=== PATIENT | female | born 1945 | race Caucasian/White ===

== ENCOUNTER → 2016-05-07 | Outpatient (CLI) | payer OTHER, MEDICARE ==
[~2016-05-07] MED LIST: AMLO-110 PO; AMOX875T PO; ARTIDRO2 OPB; ASCA500 PO; ASPI81TA21 PO; ASTN; ATV1 PO; AZEL30SP NAE; CALC-51 PO; CALCTAB5 PO; CETI10TA84 PO; CLC100 PO; CRAN1TAB9 PO; CYAN100T PO; CYCL0.052 OP; DICY20TA35 PO; DLCS PR; DOXY100C41 PO; FAMO20TA12 PO; FLNIN NAE; FLUO0.02 EXT; FLUT0.15 NAE; FURO20TA PO; GABA-113 PO; GADAVIST IV PRN; HYDR12.56 PO; LAMO100T16 PO; LAMO25TA PO; LCTX PO; LCTXP PO; LEVO125T4 PO; LITH1TAB PO; LOSA100T65 PO; MECL1TAB42 PO; MRLP17 PO; MULT-506 PO; NEOM1SOL7 OTB; NRN100 PO; NRV/10 PO; ONDA8TAB6 PO; PHEN-876 PO; PILO5TAB10 PO; POLYSOL OPB; PRAV80TA2 PO; PRLSR20 PO; PROB1TAB16 PO; PROM25TA9 PO; RANI300T2 PO; RGL10 PO; TNR50 PO; TRAM-453 PO; TRAZ100T29 PO
--- NOTE | 2016-05-08 12:25 | MAMMOGRAPHY REPORT ---
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 Also with history of kevin gn MRI guided biopsy of the left breast. COMPARISON: Comparison is made to exams dated: 12/19/2015 mammogram, 12/14/2014 mammogram, 12/12/2013 estefany mogram, 11/29/2012 mammogram, 11/27/2011 mammogram, and 11/21/2010 mammogram - [facility] nter. Technique: The patient was placed prone in a dedicated breast imaging coil. Precontrast axial T1-we ighted, axial T2-weighted fat saturation, and axial T1-weighted fat saturation images were obtained. After the administration of 9 mL of Gadavist IV contrast, sequential T1-weighted fat saturation im ages were obtained. Subtraction images were obtained of the dynamic contrast enhanced sequences, an d 3-D reformations were performed. The FilmLoop software was used for kinetic analysis. Findings: There is moderate background parenchymal enhancement involving bilateral breasts. There are multipl e foci of enhancement scattered throughout both breasts, which are felt to represent normal backgrou nd parenchymal enhancement. There are postsurgical changes in the left subareolar breast from prior duct excision, as well as susceptibility artifact in the left superior breast from a biopsy marker clip from prior benign biopsy. There are no suspicious enhancing masses or areas of abnormal non-ma ss enhancement within either breast. There are postsurgical changes from left axillary dissection, with no evidence of axillary adenopath y bilaterally. Extramammary soft tissues are unremarkable. IMPRESSION: ACR BI-RADS CATEGORY 2: BENIGN No MRI evidence of malignancy in either breast. Recommend routine bilateral mammograms due r 2016. Also consider additional surveillance with annual breast MRI given dense breast parenchyma mammographically and history of unknown primary. Donna Peng M.D. 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
== END | disposition home or self-care (01) ==
LOC: C.MRI 08:11
PROVIDERS: ATTEND Surgery
DX: Z85.3 Personal history of malignant neoplasm of breast (principal); R92.2 Inconclusive mammogram

== ENCOUNTER → 2016-07-07 | Outpatient (CLI) | payer OTHER, MEDICARE ==
[2015-07-09 13:58] VITALS: BP 115/76; PULSE 61
[~2016-07-07] MED LIST changes: -GADAVIST IV PRN; -LEVO125T4 PO; +LEVO125T5 PO; +NEOM1SOL25 OTB; -NEOM1SOL7 OTB
[2016-07-07 13:14] VITALS: BP 132/81; PULSE 72; TEMP 37; O2SAT 96
--- NOTE | 2016-07-07 17:13 | Radiation Oncology Follow-Up ---
Radiation Oncology Follow-Up Date of Visit Jul 07, 2016. Reason For Visit Annual follow-up Radiation Completion Date 11/09/13 Left breast, supraclavicular, and axilla Diagnosis (1) Metastatic cancer to axillary lymph nodes Status: Resolved Onset Date: 03/14/2013 Permanent Comment: Abnormal left breast mammogram revealing left axillary adenopathy 11/29/2012 Status post fine-needle aspiration of the left breast 01/03/2013 revealing suspicious cells for metastatic neoplasm Status post ultrasound-guided biopsy of the left axilla revealing metastatic adenocarcinoma Status post left axillary dissection staged [id number] Systemic chemotherapy with TAC Status post completion of radiation therapy 11/09/2013 received 5040 cGy to the left breast and 4680 cGy to left supraclavicular area and axilla Status post left nipple surgery 05/23/2014. Pathology benign Last Edited By: Nata Harrington on Jul 09, 2015 14:40 Interim History She's been doing well over this past year. She has noted no masses to her breast. There is been no tenderness or change of the axilla. She feels she may have some mild swelling in her left lower arm. She previously was treated the lymphedema clinic. She does have a sleeve but has not been using this on a regular basis. She continues to have back issues and is currently recovering from back surgery. She is up-to-date on mammography. She continues follow-up with Dr. Almodovar. She is also followed with breast MRIs. Allergies Coded Allergies: Baclofen (Verified Allergy, Severe, NEURO SYMPTOMS, 10/23/15) Ciprofloxacin (Unverified Allergy, Severe, HIVES, 10/23/15) Morphine (Verified Allergy, Severe, DELIRIUM, 10/23/15) Metronidazole (Verified Allergy, Intermediate, hives, 10/23/15) Quinolones (Verified Allergy, Mild, CIPRO, 10/23/15) Sulfa Antibiotics (Verified Allergy, Unknown, HIVES, 10/23/15) Zolpidem (Verified Adverse Reaction, Mild, delusions, 10/23/15) HALLUCINATIONS Pantoprazole (Verified Adverse Reaction, Unknown, migraines, 10/23/15) Home Medications Scheduled Amlodipine Besylate (Amlodipine Besylate), 2.5 MG PO QAM Aspirin Enteric Coated (Ecotrin Or Generic), 81 MG PO QAM Atenolol (Atenolol), 50 MG PO QAM Calcium (Caltrate), 600 MG PO QPM Cetirizine (Zyrtec), 10 MG PO QAM Cranberry (Vaccinium Macrocarp (Cranberry), 1 TAB PO TID Cyanocobalamin (Vitamin B-12), 100 MCG PO DAILY Cyclosporine (Ophth) (Restasis), 1 DROPS OP BID Dicyclomine Hcl (Bentyl), 1 TAB PO QID Fluticasone Propionate (Flonase Nasal Hitchcock), 2 SPRAYS ALLI BID Gabapentin (Neurontin), 300 MG PO TID Lamotrigine (Lamictal), 100 MG PO BID Levothyroxine Sodium (Levothyroxine Sodium), 125 MCG PO QAM Veguita Carbonate Ext Rel (Lithobid Ext Rel), 450 MG PO 2100 Losartan Potassium (Cozaar), 100 MG PO QAM Multivitamin (Multivitamin), 1 TAB PO QPM Edipehig-Eimbjkfoj-Zt (Otic) (Neomycin/Polymyxin/Hc), 1-2 DROPS OTB WK Omeprazole (Prilosec), 20 MG PO BID Polyvinyl Alcohol-Povidone (Op (Refresh), 1 DROP OPB BID Pravastatin Sodium (Pravastatin Sodium), 80 MG PO HS Ranitidine (Zantac), 300 MG PO HS Scheduled PRN Furosemide (Lasix), 1 TAB PO DAILY PRN for UNDECIDED Lorazepam (Lorazepam), 0.5-1 MG PO Q6H PRN for Anxiety Tramadol Hcl (Ultram), 50 MG PO Q4 PRN for Pain Review of Systems Gastrointestinal: Symptoms: Nausea GI Comments: Occass. wave of nausea-no emesis;Has antiemetic; Oral: Symptoms: No Problems Respiratory: Symptoms: SOB With Exertion Urinary: Symptoms: WNL Comments: nocturia times 4 Skin: Symptoms: No Problems Breast: Right Upper Arm Measurement: 34.0 Right Mid Arm Measurement: 23.5 Right Wrist Measurement: 15.6 Left Upper Arm Measurement: 35.5 Left Mid Arm Measurement: 25.0 Left Wrist Measurement: 16.5 Arm Dominence: Right Patient Cosmetic Evaluation: Good Staff Cosmetic Evalaluation: Good Physical Exam Vital Signs Date Time Temp Pulse Resp B/P Pulse Ox O2 Delivery O2 Flow Rate FiO2 07/07/16 13:14 37.0 72 20 132/81 96 Pain: Pain Onset: since surgery 2-2015 Pain Duration: pretty constant Side: Bilateral Patient Pain Scale: 0 - 10 Initial Pain Intensity: 5.0 Pain Description: Dull Additional Comments: constant General Appearance: no apparent distress Eyes: normal inspection, EOMI Neck: no adenopathy, thyroid normal Respiratory/Chest: lungs clear, no respiratory distress, no accessory muscle use Breast: Breast examination reveals well-healed incisions of the left breast. There are no masses or tenderness no axillary adenopathy. There is no erythema or edema. There is no telangiectasia. There is no skin retractions. There is no nipple discharge or irritation. Using the Wall[place]on score cosmesis she has a excellent outcome. Right breast showed no masses or tenderness and no axillary adenopathy. Cardiovascular: regular rate, rhythm, no gallop, no murmur Extremities: no pedal edema Neurologic/Psychiatric: no motor/sensory deficits, alert, normal mood/affect Additional Studies BILATERAL DIGITAL SCREENING MAMMOGRAM 3D/2D WITH CAD: 12/19/2015 CLINICAL HISTORY: Asymptomatic. Personal history of breast cancer. Comparison is made to exams dated: 12/14/2014 mammogram, 12/12/2013 mammogram, 12/09 mammogram, 11/29/2012 mammogram, and 11/27/2011 mammogram - [facility]. FINDINGS: Bilateral CC and MLO 2-D digital and tomosynthesis images, exaggerated lateral CC views of each breast were obtained. The tissue of both breasts is heterogeneously dense, which may obscure small masses. Current study was also evaluated with a Computer Aided Detection (CAD) system. There is focal architectural distortion in the anterior retroareolar left breast , and slight nipple retraction. Based on previous records it appears as though the patient only had a left axillary lymph node dissection but not a lumpectomy within the breast. Therefore, this is indeterminate, warranting further evaluation with targeted ultrasound and possible additional spot compression tomosynthesis images. There is a stable sergio-shaped metallic biopsy marker in the upper outer quadrant of the left breast. Moderate vascular calcifications bilaterally. No other suspicious mass, architectural distortion or cluster of microcalcifications is seen. IMPRESSION: ACR BI-RADS CATEGORY 0: INCOMPLETE EVALUATION: NEED ADDITIONAL IMAGING EVALUATION The focal architectural distortion in the anterior left breast needs additional evaluation. The patient will be called to schedule an appointment. Approximately 10% of breast cancers are not detected with mammography. A negative mammographic report should not delay biopsy if a clinically suggestive mass is present. Latosha Lam M.D. ay/:12/19/2015 15:47:34 ULTRASOUND OF LEFT BREAST: 01/01/2016 CLINICAL HISTORY: 70-year-old woman with a personal history of metastatic left breast cancer of uncertain breast primary status post treatment. Recent screening mammogram dated 12/19/2015 demonstrated focal architectural distortion in the retroareolar anterior left breast. Patient presents for targeted ultrasound and additional workup. Comparison is made to exams dated: 12/19/2015 mammogram, 12/14/2014 mammogram, 2013 ultrasound, 12/09/2012 ultrasound, 11/29/2012 mammogram, and 11/21/2010 mammogram - [facility]. Findings: Prior to left breast ultrasound, the patient reported a left subareolar duct excision performed by Dr. Almodovar. This explains the focal architectural distortion and a periareolar incision scar is noted on the left breast. Real-time high resolution sonographic evaluation was performed in the periareolar left breast. There is hypoechoic shadowing scar tissue. No evidence of a suspicious solid nodular mass. IMPRESSION: ACR BI-RADS CATEGORY 2: BENIGN The focal architectural distortion in the retroareolar left breast is most compatible with postsurgical scarring. There is no targeted sonographic evidence of malignancy in the left breast. Recommend annual mammography next year as well as consider additional surveillance with breast MRI given the heterogeneously dense breasts and history of unknown primary. These results and recommendations were discussed with the patient at the time of the exam. Latosha Lam M.D. ay/:01/01/2016 11:46:36 BREAST MRI OF BOTH BREASTS : 05/07/2016 CLINICAL HISTORY: History of metastatic carcinoma of unknown breast primary to the left axillary lymph nodes, status post left axillary dissection and left breast radiation. Also with history of benign MRI guided biopsy of the left breast. COMPARISON: Comparison is made to exams dated: 12/19/2015 mammogram, 12/14/2014 mammogram, 12/12/2013 mammogram, 11/29/2012 mammogram, 11/27/2011 mammogram, and 03/2011 mammogram - [facility]. Technique: The patient was placed prone in a dedicated breast imaging coil. Precontrast axial T1-weighted, axial T2-weighted fat saturation, and axial T1- weighted fat saturation images were obtained. After the administration of 9 mL of Gadavist IV contrast, sequential T1-weighted fat saturation images were obtained. Subtraction images were obtained of the dynamic contrast enhanced sequences, and 3-D reformations were performed. The [employer] software was used for kinetic analysis. Findings: There is moderate background parenchymal enhancement involving bilateral breasts. There are multiple foci of enhancement scattered throughout both breasts, which are felt to represent normal background parenchymal enhancement. There are postsurgical changes in the left subareolar breast from prior duct excision, as well as susceptibility artifact in the left superior breast from a biopsy marker clip from prior benign biopsy. There are no suspicious enhancing masses or areas of abnormal non-mass enhancement within either breast. There are postsurgical changes from left axillary dissection, with no evidence of axillary adenopathy bilaterally. Extramammary soft tissues are unremarkable. IMPRESSION: ACR BI-RADS CATEGORY 2: BENIGN No MRI evidence of malignancy in either breast. Recommend routine bilateral mammograms due December 2016. Also consider additional surveillance with annual breast MRI given dense breast parenchyma mammographically and history of unknown primary. Donna Peng M.D. 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 At her follow-up visit she plans to get scheduled for her next follow-up MRI. She will try using the sleeve to help with the mild lymphedema in the left arm. If this is not helpful and she will like to be referred back to the lymphedema clinic I've asked her to call her office and I would make a referral to restart therapy. Continue follow-up with her primary care physician and Dr. Almodovar. We asked her to return to our office in 1 year. She will call if she has a questions or concerns in the interim. Total Time In Follow-Up I spent 20 minutes the to the patient performing examination. I spent 15 minutes reviewing information and completing this note. Copy To Tonie Rendon M.D.; Minda Almodovar MD
== END | disposition home or self-care (01) ==
LOC: C.ONC 13:04
PROVIDERS: ATTEND Physician Assistant Medical
DX: Z08 Encounter for follow-up examination after completed treatment for malignant neoplasm (principal); Z92.3 Personal history of irradiation; Z85.89 Personal history of malignant neoplasm of other organs and systems

== ENCOUNTER → 2016-07-20 | Outpatient (CLI) | payer OTHER, MEDICARE ==
[~2016-07-20] MED LIST changes: -CLC100 PO; -DLCS PR; -FAMO20TA12 PO; -FLUO0.02 EXT; -HYDR12.56 PO; -LCTXP PO; -MRLP17 PO; -NRN100 PO; -PHEN-876 PO; -RGL10 PO
--- NOTE | 2016-07-20 12:45 | MAMMOGRAPHY REPORT ---
ULTRASOUND OF BOTH BREASTS: 07/20/2016 CLINICAL HISTORY: 71-year-old woman with a history of metastatic left axillary lymphadenopathy statu s post treatment and lymph node excision. She presents with a new palpable lump versus lumps above the surgical scar in the left axilla. COMPARISON: Comparison is made to exams dated: 05/07/2016 breast MRI, 01/01/2016 ultrasound, 12/19/2015 mammogram, 12/14/2014 mammogram, 12/12/2013 ultrasound, and 12/12/2013 mammogram - [facility]. FINDINGS: Real-time high-resolution ultrasound and color-flow Doppler was performed throughout the left axilla with particular attention to an area of nodularity above the skin surgical scar which wa s pointed out by the patient. Throughout the left axilla extending to the region of the proximal hu merus and inferior to the area of the axillary tail, no suspicious mass or suspicious lymphadenopath y is identified. IMPRESSION: ACR BI-RADS CATEGORY 1: NEGATIVE There is no sonographic evidence of malignancy within the left axilla. No suspicious mass, lymphade nopathy or other abnormality is identified to correlate with the new palpable nodularity which was p ointed out by the patient. The sonographic findings are concordant with the breast MRI performed in April which demonstrated no suspicious left axillary lymphadenopathy. However, clinical follow-u p is recommended, as biopsy of a clinically suspicious mass should not be precluded by negative imag ing. Otherwise, continuation of screening mammography/MRI schedule is recommended. These results and rec ommendations were discussed with the patient at the time of the exam. Latosha Lam M.D. ay/:07/20/2016 12:32:41 Attending Technologist: Aixa Bustillos RT(R)(M), [facility] [employer] Supervisor: Dr. Latosha Lam, [facility] letter sent: Normal 1/2 BI-RADS Code: ACR BI-RADS Category 1: Negative
== END | disposition home or self-care (01) ==
LOC: C.MAMM 11:08
PROVIDERS: ATTEND Surgery
DX: R22.32 Localized swelling, mass and lump, left upper limb (principal); Z85.3 Personal history of malignant neoplasm of breast

== ENCOUNTER 2016-12-03 09:51 | Inpatient (IN) | payer OTHER, MEDICARE ==
[~2016-12-03] VITALS: Ht 170.2 cm; Wt 89.1 kg
[~2016-12-03 09:51] MED LIST changes: -AMLO-110 PO; -AMOX875T PO; -ARTIDRO2 OPB; -ASCA500 PO; -ASTN; -AZEL30SP NAE; -CALC-51 PO; -DOXY100C41 PO; -FLUT0.15 NAE; -LAMO100T16 PO; -LCTX PO; +LEVO125T4 PO; -LEVO125T5 PO; -MECL1TAB42 PO; -NEOM1SOL25 OTB; +NEOM1SOL7 OTB; -ONDA8TAB6 PO; -PILO5TAB10 PO; -PROB1TAB16 PO; -PROM25TA9 PO; -TRAZ100T29 PO
[2016-12-03] MEDS ORDERED: AMPICILLIN/SULBACTAM SOD INJ 3,000 MG in SODIUM CHLORIDE 0.9% 100ML 100 ML IV ONE (10:30)
[2016-12-03 11:20] LABS: COMPLETE YES; HEMATOCRIT 42.3 % (37-47); IG% 0.5 %; LYMPH % 22.8 %; LYMPH ABS # 0.91 K/uL (1.2-3.4); MEAN CELL VOLUME 89.6 fL (80-100); MEAN CORPUSCULAR HEMOGLOBIN 30.5 pg (25-34); MEAN PLATELET VOLUME 9.3 fL (7.4-10.4); MONO % 6.5 %; NEUT % 70.2 %; PLATELET COUNT 267 K/uL (130-400); RED BLOOD COUNT 4.72 M/uL (4.2-5.4)
[2016-12-03] MEDS ORDERED: ONDA8TAB6 PO (11:24)
[2016-12-03] MEDS ORDERED: ASCA500 PO (11:24)
[2016-12-03] MEDS ORDERED: CALC-51 PO (11:24)
[2016-12-03] MEDS ORDERED: TRAZ100T29 PO (11:24)
[2016-12-03] MEDS ORDERED: AZEL30SP NAE (11:24)
[2016-12-03] MEDS ORDERED: MECL1TAB42 PO (11:24)
[2016-12-03] MEDS ORDERED: PROM25TA9 PO (11:24)
[2016-12-03] MEDS ORDERED: PROB1TAB16 PO (11:24)
[2016-12-03] MEDS ORDERED: ARTIDRO2 OPB (11:24)
[2016-12-03] MEDS ORDERED: PILO5TAB10 PO (11:24)
[2016-12-03] MEDS ORDERED: FLUT0.15 NAE (11:24)
[2016-12-03] MEDS ORDERED: AMLO-110 PO (11:24)
[2016-12-03] MEDS ORDERED: LAMO100T16 PO (11:24)
--- NOTE | 2016-12-03 11:34 | DIAGNOSTIC IMAGING REPORT ---
RIGHT PELVIS/UNILATERAL HIP 2-3VIEWS CLINICAL HISTORY: previous fall w/ r groin pain Right COMPARISON STUDY: None. FINDINGS: Lumbar spine posterior fusion hardware. No fracture or dislocation within the pelvis or hips. The sacrum appears intact. Soft tissues are unremarkable. 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 IMPRESSION: No fracture or dislocation within the pelvis or hips. Electronically signed by: Kurt Lovett M.D. 12/03/2016 11:33 AM Dictated Date/Time: 12/03/2016 11:30 AM
[2016-12-03 11:38] LABS: BUN/CREATININE RATIO 6.9 (10-20); CALCIUM 9.1 mg/dl (8.5-10.1); CREATININE 0.89 mg/dl (0.60-1.20); POTASSIUM 3.3 mmol/L (3.5-5.1)
--- NOTE | 2016-12-03 12:36 | DIAGNOSTIC IMAGING REPORT ---
LEFT UPPER EXTREMITY VENOUS DOPPLER HISTORY: Left arm swelling. COMPARISON STUDY: None. FINDINGS: The left internal jugular vein is patent. There is normal flow within the left subclavian vein. There is normal flow and compressibility within the left axillary, basilic, brachial, radial, ulnar, and visualized cephalic veins. IMPRESSION: No DVT within the left upper extremity. Electronically signed by: Kurt Lovett M.D. 12/03/2016 12:35 PM Dictated Date/Time: 12/03/2016 12:35 PM
[2016-12-03] MEDS ORDERED: VANCOMYCIN INJ 1,900 MG in SODIUM CHLORIDE 0.9% 500ML 500 ML IV STA (12:58)
--- NOTE | 2016-12-03 13:23 | History and Physical ---
History & Physical Date & Time of Service: Dec 03, 2016 at 13:23 . Chief Complaint: redness, swelling left arm . Primary Care Physician: Tonie Rendon M.D. . History of Present Illness Source: patient, family, clinic records, hospital records 71 YO female followed by Dr. Rendon for Family Medicine and Dr. Almodovar for General Surgery. History of hypertension, breast Ca, and other problems noted below. Chronic lymphedema of LUE due to axillary dissection. Followed at [facility] lymphedema clinic. Noted increased swelling and erythema of LUE a few days ago. No trauma. No fever, but experiencing cold sweats. . Past Medical/Surgical History Chronic and Resolved Medical Problems: (1) Anxiety Status: Chronic (2) Cerebrovascular disease Permanent Comment: history TIA Status: Chronic (3) Depression Status: Chronic (4) Fatty liver Status: Chronic (5) GERD (gastroesophageal reflux disease) Status: Chronic (6) History of bipolar disorder Status: Chronic (7) History of breast cancer Permanent Comment: Abnormal left breast mammogram revealing left axillary adenopathy 11/29/2012 Status post fine-needle aspiration of the left breast 01/03/2013 revealing suspicious cells for metastatic neoplasm Status post ultrasound-guided biopsy of the left axilla revealing metastatic adenocarcinoma Status post left axillary dissection staged [id number] Systemic chemotherapy with TAC Status post completion of radiation therapy 11/09/2013 received 5040 cGy to the left breast and 4680 cGy to left supraclavicular area and axilla Status post left nipple surgery 05/23/2014. Pathology benign Status: Chronic (8) History of TIA (transient ischemic attack) Status: Chronic (9) Hyperlipidemia Status: Chronic (10) Hypertension Status: Chronic (11) Hypothyroidism Status: Chronic (12) Lymphedema Status: Chronic Surgical Problems: (1) H/O colonoscopy Permanent Comment: 09/21/2014- adenomatous polyps, diverticulosis Status: Chronic (2) H/O cystoscopy Status: Chronic (3) History of cataract surgery Status: Chronic (4) History of cervical hemilaminectomy Status: Chronic (5) History of left breast nipple exploration and ductal excision Permanent Comment: 05/23/[address] Almodovar Status: Chronic (6) History of lymph node dissection of left axilla Permanent Comment: 03/14/2013- Left axillary lymph node dissection, Dx: metastatic carcinoma seen in 16 of 21 examined left lymph nodes. Placement of right subclavian venous Port-A-Cath. Status: Chronic (7) Status post lumbar surgery Status: Chronic (8) Status post total left knee replacement Status: Chronic . Family History Diabetes mellitus FH: cancer Gallbladder disease Hypertension Social History Smoking Status: Never Smoker Alcohol Use: none Marital Status: Housing status: lives with family Occupational Status: disabled Immunizations History of Influenza Vaccine: Yes History of Tetanus Vaccine?: Yes Tetanus Immunization Date: August 26, 2005 History of Pneumococcal: Yes History of Hepatitis B Vaccine: No Multi-Drug Resistant Organisms History of MDRO: No Allergies Coded Allergies: Baclofen (Verified Allergy, Severe, NEURO SYMPTOMS, 10/23/15) Ciprofloxacin (Unverified Allergy, Severe, HIVES, 10/23/15) Morphine (Verified Allergy, Severe, DELIRIUM, 10/23/15) Metronidazole (Verified Allergy, Intermediate, hives, 10/23/15) Quinolones (Verified Allergy, Mild, CIPRO, 10/23/15) Sulfa Antibiotics (Verified Allergy, Unknown, HIVES, 10/23/15) Zolpidem (Verified Adverse Reaction, Mild, delusions, 10/23/15) HALLUCINATIONS Pantoprazole (Verified Adverse Reaction, Unknown, migraines, 10/23/15) Home Medications Scheduled Amlodipine (Norvasc), 5 MG PO QAM Artificial Tear Solution (Soothe Xp), 1 DROP OPB BID Ascorbic Acid (Vitamin C), 500 MG PO BID Aspirin Enteric Coated (Ecotrin Or Generic), 81 MG PO QAM Atenolol (Atenolol), 50 MG PO QAM Azelastine Hcl-Fluticasone Pro (Dymista), 2 SPRY ALLI BID Calcium Carbonate-Vitamin D (Calcium), 1 TAB PO DAILY Cetirizine (Zyrtec), 10 MG PO QAM Cranberry (Vaccinium Macrocarp (Cranberry), 300 MG PO TID Cyanocobalamin (Vitamin B-12), 100 MCG PO DAILY Fluticasone Propionate (Nasal) (Flonase Allergy Relief), 2 SPRAYS ALLI AMPM Furosemide (Lasix), 20 MG PO QAM Gabapentin (Neurontin), 300 MG PO TID Lamotrigine (Lamictal), 100 MG PO AMPM Levothyroxine Sodium (Levothyroxine Sodium), 125 MCG PO QAM [place]well Carbonate Ext Rel (Lithobid Ext Rel), 450 MG PO QPM Losartan Potassium (Cozaar), 100 MG PO QAM Multivitamin (Multivitamin), 1 TAB PO QPM Xwvtfryh-Npmvmcfbm-Eo (Otic) (Neomycin/Polymyxin/Hc), 1 DROPS OTB 2XWK Omeprazole (Prilosec), 20 MG PO BID Pilocarpine (Salagen), 5 MG PO QID Pravastatin Sodium (Pravastatin Sodium), 80 MG PO HS Probiotic Product (Probiotic), 1 TAB PO BID Ranitidine (Zantac), 300 MG PO HS Trazodone Hcl (Trazodone), 100 MG PO HS Scheduled PRN Dicyclomine Hcl (Bentyl), 20 MG PO QID PRN for abdominal cramping Lorazepam (Lorazepam), 0.5-1 MG PO Q6H PRN for Anxiety Meclizine Hcl (Meclizine Hcl), 50 MG PO TID PRN for Nausea Ondansetron Hcl (Zofran), 8 MG PO Q8 PRN for Nausea Promethazine Hcl (Phenergan), 25 MG PO Q6H PRN for Nausea Tramadol Hcl (Ultram), 50-100 MG PO TID PRN for Pain Review of Systems Constitutional: + sweats, No fever Eyes: No worsening of vision ENT: + nasal symptoms Respiratory: + cough (occasional), No shortness of breath Cardiovascular: + edema, No chest pain, No palpitations Abdomen: + diarrhea (yesterday), No pain, No nausea, No vomiting, No GI bleeding Musculoskeletal: No joint pain Genitourinary - Female: No dysuria, No hematuria Endocrine: + excessive thirst, No excessive urination Hematologic / Lymphatic: + abnormal bleeding/bruising (bruises easily) Integumentary: + problem reported (as noted in HPI) Allergic / Immunologic: + environmental allergies Physical Exam Vital Signs Date Time Temp Pulse Resp B/P (MAP) Pulse Ox O2 Delivery O2 Flow Rate FiO2 12/03/16 10:45 69 15 151/90 95 Room Air 12/03/16 10:00 36.5 70 18 156/91 98 Room Air General Appearance: WD/WN, no apparent distress Head: normocephalic, atraumatic Eyes: normal inspection, PERRL, EOMI, sclerae normal ENT: hearing grossly normal, pharynx normal Neck: supple, no adenopathy, thyroid normal, no JVD, trachea midline Respiratory/Chest: lungs clear, no respiratory distress, no accessory muscle use Cardiovascular: regular rate, rhythm, no edema, no gallop, no JVD, no murmur Abdomen/GI: normal bowel sounds, non tender, soft, no organomegaly, no pulsatile mass Extremities/Musculoskelatal: no calf tenderness, no pedal edema, + pertinent finding (lymphedema LUE) Neurologic/Psych: upholstery trimmer II-XII nml as tested (PERRL, EOMI, no facial palsy, no dysarthria), no motor/sensory deficits (motor grossly intact), alert, normal mood/affect, oriented x 3 Skin: warm/dry, + pertinent finding (erythema LUE) Lymphatic: no adenopathy (cervcial) Diagnostics Laboratory Results Results Past 24 Hours Test 12/03/16 10:45 Range/Units White Blood Count 4.00 4.8-10.8 K/uL Red Blood Count 4.72 4.2-5.4 M/uL Hemoglobin 14.4 12.0-16.0 g/dL Hematocrit 42.3 37-47 % Mean Corpuscular Volume 89.6 80-100 fL Mean Corpuscular Hemoglobin 30.5 25-34 pg Mean Corpuscular Hemoglobin Concent 34.0 32-36 g/dl Platelet Count 267 130-400 K/uL Mean Platelet Volume 9.3 7.4-10.4 fL Neutrophils (%) (Auto) 70.2 % Lymphocytes (%) (Auto) 22.8 % Monocytes (%) (Auto) 6.5 % Eosinophils (%) (Auto) 0.0 % Basophils (%) (Auto) 0.0 % Neutrophils # (Auto) 2.81 1.4-6.5 K/uL Lymphocytes # (Auto) 0.91 1.2-3.4 K/uL Monocytes # (Auto) 0.26 0.11-0.59 K/uL Eosinophils # (Auto) 0.00 0-0.5 K/uL Basophils # (Auto) 0.00 0-0.2 K/uL RDW Standard Deviation 48.3 36.4-46.3 fL RDW Coefficient of Variation 14.8 11.5-14.5 % Immature Granulocyte % (Auto) 0.5 % Immature Granulocyte # (Auto) 0.02 0.00-0.02 K/uL Sodium Level 143 136-145 mmol/L Potassium Level 3.3 3.5-5.1 mmol/L Chloride Level 109 98-107 mmol/L Carbon Dioxide Level 28 21-32 mmol/L Anion Gap 6.0 3-11 mmol/L Blood Urea Nitrogen 6 7-18 mg/dl Creatinine 0.89 0.60-1.20 mg/dl Est Creatinine Clear Calc Drug Dose 68.4 ml/min Estimated GFR () 76.6 Estimated GFR (Non- 66.1 BUN/Creatinine Ratio 6.9 10-20 Random Glucose 85 70-99 mg/dl Calcium Level 9.1 8.5-10.1 mg/dl Diagnostic Radiology LEFT UPPER EXTREMITY VENOUS DOPPLER FINDINGS: The left internal jugular vein is patent. There is normal flow within the left subclavian vein. There is normal flow and compressibility within the left axillary, basilic, brachial, radial, ulnar, and visualized cephalic veins. IMPRESSION: No DVT within the left upper extremity. Electronically signed by: Kurt Lovett M.D. 12/03/2016 12:35 PM . Impression Assessment and Plan CELLULITIS LEFT UPPER EXTREMITY Underlying lymphedema from axillary dissection. Does not appear to be septic. Started on IV vancomycin and ampicillin / sulbactam in ED which will be continued. Discuss case with General Surgery and lymphedema clinic. Consult ID. HYPERTENSION Continue atenolol, amlodipine and losartan. HYPOKALEMIA K = 3.3. PO replacement. Follow. DYSLIPIDEMIA Continue pravastatin. HYPOTHYROIDISM Continue levothyroxine. BIPOLAR DISORDER Continue usual meds. VTE PROPHYLAXIS SQ enoxaparin. Ambulate. DISPOSITION Expected discharge to home. Family Medicine follow-up with Dr. Rendon. General Surgery follow-up with Dr. Almodovar. Lymphedema follow-up with [facility]. . VTE Prophylaxis VTE Risk Assessment Done? Y/N: Yes Risk Level: Moderate Given or contraindicated: Enoxaparin (Lovenox)SQ
[2016-12-03 13:28] VITALS: O2SAT 96; Ht 170.2 cm; Wt 89.1 kg
[2016-12-03] MEDS ORDERED: ONDANSETRON INJ 2 MG/ML 2 ML VIAL IV PRN (13:30)
[2016-12-03 13:40] LABS: PROTHROMBIN TIME (PATIENT) 10.3 SECONDS (9.0-12.0)
[2016-12-03 14:21] VITALS: BP 155/90; PULSE 111; TEMP 36.6; O2SAT 97
[2016-12-03 15:47] VITALS: BP 131/79; PULSE 104; TEMP 36.9; O2SAT 99
[2016-12-03 16:00] VITALS: O2SAT 99
--- NOTE | 2016-12-03 16:59 | EMERGENCY ROOM VISIT NOTE ---
History Report prepared by Ricardo: Iris Jackson Under the Supervision of: Dr. Tah Slaughter D.O. First contact with patient: 10:14 Chief Complaint: RASH Stated Complaint: INFECTION/POSSIBLE BLOOD CLOT History of Present Illness The patient is a 71 year old female who presents to the Emergency Room with complaints of a worsening rash for the past 3 days. The patient reports redness that started around her left wrist and has moved up her arm. She is currently being treated for lymphedema of the left arm. She has a history of breast cancer and had surgery in 03/2013. The patient states that for the past 2 weeks she has been feeling hot and cold. She saw her PCP today for her rash and was sent to the ED for further evaluation and testing. She reports diarrhea yesterday. Pt denies headache, fevers, chest pain, shortness of breath, nausea, vomiting, pain with urination, and melena. She fell in August of this year and states that she has been having right hip pain and groin pain since her fall. She did not have any x-rays done after her fall. The patient rates her current pain as a 6/10 in severity. Source of History: patient Onset: 3 days ago Position: arm (left) Symptom Intensity: 6/10 Quality: other (redness) Timing: worsening Associated Symptoms: + diarrhea, No fevers, No headache, No chest pain, No SOB, No nausea, No vomiting, No melena, No urinary symptoms Note: Pt notes right hip pain and groin pain. Review of Systems See HPI for pertinent positives & negatives. A total of 10 systems reviewed and were otherwise negative. Past Medical & Surgical Medical Problems: (1) Abdominal pain (2) Anxiety (3) Breast cancer, left (4) Depression (5) Fatty liver (6) GERD (gastroesophageal reflux disease) (7) History of bipolar disorder (8) History of TIA (transient ischemic attack) (9) Hyperlipidemia (10) Hypertension (11) Hypothyroidism (12) Leukocytosis (13) Lumbar stenosis with neurogenic claudication (14) Metastatic cancer to axillary lymph nodes (15) UTI (urinary tract infection) Surgical Problems: (1) H/O colonoscopy (2) H/O cystoscopy (3) History of cataract surgery (4) History of cervical hemilaminectomy (5) History of left breast nipple exploration and ductal excision (6) History of lymph node dissection of left axilla (7) low back surgery (8) Status post total left knee replacement Family History Diabetes mellitus FH: cancer Gallbladder disease Hypertension Social History Smoking Status: Never Smoker Alcohol Use: none Marital Status: Housing Status: lives with significant other Occupation Status: disabled Current/Historical Medications Scheduled Amlodipine (Norvasc), 5 MG PO QAM Artificial Tear Solution (Soothe Xp), 1 DROP OPB BID Ascorbic Acid (Vitamin C), 500 MG PO BID Aspirin Enteric Coated (Ecotrin Or Generic), 81 MG PO QAM Atenolol (Atenolol), 50 MG PO QAM Azelastine Hcl-Fluticasone Pro (Dymista), 2 SPRY ALLI BID Calcium Carbonate-Vitamin D (Calcium), 1 TAB PO DAILY Cetirizine (Zyrtec), 10 MG PO QAM Cranberry (Vaccinium Macrocarp (Cranberry), 300 MG PO TID Cyanocobalamin (Vitamin B-12), 100 MCG PO DAILY Dicyclomine Hcl (Bentyl), 20 MG PO QID Fluticasone Propionate (Nasal) (Flonase Allergy Relief), 2 SPRAYS ALLI AMPM Furosemide (Lasix), 20 MG PO QAM Gabapentin (Neurontin), 300 MG PO TID Lamotrigine (Lamictal), 100 MG PO AMPM Levothyroxine Sodium (Levothyroxine Sodium), 125 MCG PO QAM Gem Carbonate Ext Rel (Lithobid Ext Rel), 450 MG PO QPM Losartan Potassium (Cozaar), 100 MG PO QAM Multivitamin (Multivitamin), 1 TAB PO QPM Ifydgsqh-Agvbpqmwx-Qw (Otic) (Neomycin/Polymyxin/Hc), 1 DROPS OTB 2XWK Omeprazole (Prilosec), 20 MG PO BID Pilocarpine (Salagen), 5 MG PO QID Pravastatin Sodium (Pravastatin Sodium), 80 MG PO HS Probiotic Product (Probiotic), 1 TAB PO BID Ranitidine (Zantac), 300 MG PO HS Trazodone Hcl (Trazodone), 100-150 MG PO HS Scheduled PRN Lorazepam (Lorazepam), 0.5-1 MG PO Q6H PRN for Anxiety Meclizine Hcl (Meclizine Hcl), 50 MG PO TID PRN for Nausea Ondansetron Hcl (Zofran), 8 MG PO Q4 PRN for Nausea Promethazine Hcl (Phenergan), 25 MG PO Q6H PRN for Nausea Tramadol Hcl (Ultram), 50-100 MG PO Q4 PRN for Pain Allergies Coded Allergies: Baclofen (Verified Allergy, Severe, NEURO SYMPTOMS, 10/23/15) Ciprofloxacin (Unverified Allergy, Severe, HIVES, 10/23/15) Morphine (Verified Allergy, Severe, DELIRIUM, 10/23/15) Metronidazole (Verified Allergy, Intermediate, hives, 10/23/15) Quinolones (Verified Allergy, Mild, CIPRO, 10/23/15) Sulfa Antibiotics (Verified Allergy, Unknown, HIVES, 10/23/15) Zolpidem (Verified Adverse Reaction, Mild, delusions, 10/23/15) HALLUCINATIONS Pantoprazole (Verified Adverse Reaction, Unknown, migraines, 10/23/15) Physical Exam Vital Signs Date Time Temp Pulse Resp B/P (MAP) Pulse Ox O2 Delivery O2 Flow Rate FiO2 12/03/16 13:21 71 19 146/81 96 Room Air 12/03/16 10:45 69 15 151/90 95 Room Air 12/03/16 10:00 36.5 70 18 156/91 98 Room Air Physical Exam GENERAL: alert, sitting up in bed, well appearing, well nourished, no distress, non-toxic EYE EXAM: normal conjunctiva OROPHARYNX: no exudate, no erythema, lips, buccal mucosa, and tongue normal and mucous membranes are moist NECK: supple, no nuchal rigidity, no adenopathy, non-tender LUNGS: Clear to auscultation. Normal chest wall mechanics HEART: no murmurs, S1 normal and S2 normal ABDOMEN: abdomen soft, non-tender, normo-active bowel sounds, no masses, no rebound or guarding. BACK: Back is symmetrical on inspection and there is no deformity, no midline tenderness, no CVA tenderness. SKIN: no rashes and no bruising UPPER EXTREMITIES: Significant edema in the left upper extremity with erythema tracking from the dorsal aspect of the hand up cephalad beyond left elbow, skin is warm, tender to palpation. Radial pulses 2/4, flexion/extension of the left shoulder/elbow/wrist intact. LOWER EXTREMITIES: No pitting edema. NEURO EXAM: Normal sensorium, cranial nerves II-XII grossly intact, normal speech, no gross weakness of arms, no gross weakness of legs. Medical Decision & Procedures ER Provider Diagnostic Interpretation: Radiology results as stated below per my review and the radiologist's interpretation: RIGHT PELVIS/UNILATERAL HIP 2-3VIEWS CLINICAL HISTORY: previous fall w/ r groin pain Right COMPARISON STUDY: None. FINDINGS: Lumbar spine posterior fusion hardware. No fracture or dislocation within the pelvis or hips. The sacrum appears intact. Soft tissues are unremarkable. 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 IMPRESSION: No fracture or dislocation within the pelvis or hips. Electronically signed by: Kurt Lovett M.D. 12/03/2016 11:33 AM Dictated Date/Time: 12/03/2016 11:30 AM LEFT UPPER EXTREMITY VENOUS DOPPLER HISTORY: Left arm swelling. COMPARISON STUDY: None. FINDINGS: The left internal jugular vein is patent. There is normal flow within the left subclavian vein. There is normal flow and compressibility within the left axillary, basilic, brachial, radial, ulnar, and visualized cephalic veins. IMPRESSION: No DVT within the left upper extremity. Electronically signed by: Kurt Lovett M.D. 12/03/2016 12:35 PM Dictated Date/Time: 12/03/2016 12:35 PM Laboratory Results 12/03/16 10:45 Red Blood Count 4.72, Mean Corpuscular Volume 89.6, Mean Corpuscular Hemoglobin 30.5, Mean Corpuscular Hemoglobin Concent 34.0, Mean Platelet Volume 9.3, Neutrophils (%) (Auto) 70.2, Lymphocytes (%) (Auto) 22.8, Monocytes (%) (Auto) 6.5, Eosinophils (%) (Auto) 0.0, Basophils (%) (Auto) 0.0, Neutrophils # (Auto) 2.81, Lymphocytes # (Auto) 0.91, Monocytes # (Auto) 0.26, Eosinophils # (Auto) 0.00, Basophils # (Auto) 0.00 12/03/16 10:45 Test 12/03/16 10:45 White Blood Count 4.00 K/uL (4.8-10.8) Red Blood Count 4.72 M/uL (4.2-5.4) Hemoglobin 14.4 g/dL (12.0-16.0) Hematocrit 42.3 % (37-47) Mean Corpuscular Volume 89.6 fL (80-100) Mean Corpuscular Hemoglobin 30.5 pg (25-34) Mean Corpuscular Hemoglobin Concent 34.0 g/dl (32-36) Platelet Count 267 K/uL (130-400) Mean Platelet Volume 9.3 fL (7.4-10.4) Neutrophils (%) (Auto) 70.2 % Lymphocytes (%) (Auto) 22.8 % Monocytes (%) (Auto) 6.5 % Eosinophils (%) (Auto) 0.0 % Basophils (%) (Auto) 0.0 % Neutrophils # (Auto) 2.81 K/uL (1.4-6.5) Lymphocytes # (Auto) 0.91 K/uL (1.2-3.4) Monocytes # (Auto) 0.26 K/uL (0.11-0.59) Eosinophils # (Auto) 0.00 K/uL (0-0.5) Basophils # (Auto) 0.00 K/uL (0-0.2) RDW Standard Deviation 48.3 fL (36.4-46.3) RDW Coefficient of Variation 14.8 % (11.5-14.5) Immature Granulocyte % (Auto) 0.5 % Immature Granulocyte # (Auto) 0.02 K/uL (0.00-0.02) Prothrombin Time 10.3 SECONDS (9.0-12.0) Prothromb Time International Ratio 1.0 (0.9-1.1) Activated Partial Thromboplast Time 26.4 SECONDS (21.0-31.0) Partial Thromboplastin Ratio 1.0 Anion Gap 6.0 mmol/L (3-11) Est Creatinine Clear Calc Drug Dose 68.4 ml/min Estimated GFR () 76.6 Estimated GFR (Non- 66.1 BUN/Creatinine Ratio 6.9 (10-20) Calcium Level 9.1 mg/dl (8.5-10.1) Hepatitis C Antibody Screen NEG (NEG) Laboratory results per my review. Medications Administered Medications (Trade) Dose Ordered Sig/Chava Route Start Time Stop Time Status Last Admin Dose Admin Ampicillin Sodium/ Sulbactam Sodium 3000 mg/Sodium Chloride 108 ml @ 200 mls/hr ONE ONCE IV 12/03/16 10:30 12/03/16 11:02 DC 12/03/16 11:01 200 MLS/HR Vancomycin HCl 1900 mg/Sodium Chloride 538 ml @ 200 mls/hr ONE STAT IV 12/03/16 12:58 12/03/16 15:39 DC 12/03/16 13:20 200 MLS/HR ED Course ED COURSE: Vital signs were reviewed and showed hypertensive. The patients medical record was reviewed The above diagnostic studies were performed and reviewed. ED treatments and interventions as stated above. 1014: The patient was evaluated in room B11B. A complete history and physical examination was performed. 1030: Ampicillin Sodium/Sulbactam Sodium 3000 mg/Sodium Chloride 108 ml @ 200 mls/hr IV 1034: I discussed the case with the patient's PCP's office. 1247: Upon reevaluation, the patient is resting comfortably. I discussed my findings with the patient and she understands and agrees with the treatment plan. Based on the patients age, coexisting illnesses, exam and lab findings the decision to treat as an inpatient was made. The patient remained stable while under my care. The patient will be evaluated for further management. 1258: Vancomycin HCl 1900 mg/Sodium Chloride 538 ml @ 200 mls/hr IV 1314. I reviewed the patient's case with Dr. Black. The [facility] Hospitalist Group will evaluate the patient for further management. Medical Decision Differential diagnosis includes etiologies such as cellulitis, abscess, MRSA infection, DVT, necrotizing fasciitis, dermatitis, drug eruption, as well as others were entertained. Patient is a 71-year-old female who presents the ER for redness of her left upper extremity associated with swelling. She was referred in by the primary care doctor. She does have a history of lymphedema secondary to breast cancer. On exam she does have redness coming from the risk of above her elbow. IV was established and given IV antibiotics. CBC along with BMP was unremarkable. She was given fluids and was admitted to internal medicine with a cellulitis of the left upper extremity. Medication Reconcilliation Current Medication List: was personally reviewed by me Blood Pressure Screening Patient's blood pressure: Elevated blood pressure Blood pressure disposition: Elevated BP felt to be situational Consults Time Called: 1303 Consulting Physician: Dr. Black Returned Call: 1314 I reviewed the patient's case with Dr. Black. The [facility] Group will evaluate the patient for further management. Impression Primary Impression: Cellulitis of upper extremity Additional Impression: Lymphedema Scribe Attestation The scribe's documentation has been prepared under my direction and personally reviewed by me in its entirety. I confirm that the note above accurately reflects all work, treatment, procedures, and medical decision making performed by me. Departure Information Dispostion Being Evaluated By Hospitalist Referrals Tonie Rendon M.D. (PCP) Patient Instructions My [facility] Problem Qualifiers Primary Impression: Cellulitis of upper extremity Laterality: left Qualified Codes: L03.114 - Cellulitis of left upper limb
[2016-12-03] MEDS ORDERED: LORAZEPAM 0.5 MG TAB PO PRN (17:45)
[2016-12-03] MEDS ORDERED: ONDANSETRON 8 MG TAB PO PRN (17:45)
[2016-12-03] MEDS ORDERED: TRAMADOL HCL 50 MG TAB PO PRN (17:45)
[2016-12-03] MEDS ORDERED: DICYCLOMINE HCL 20 MG TAB PO PRN (17:45)
--- NOTE | 2016-12-03 19:29 | Pharmacy Progress Note ---
Pharmacy Abx Initial Consult Date of Service Dec 03, 2016. Pharmacy Dosing Scope Date of Consult: 12/03/16 Consultation requested by: Dr. Black Pharmacy is consulted to initiate Vancomycin IV dosing therapy, order appropriate labs and adjust drug dose/frequency. Subjective The patient is a 71 year old female admitted on Dec 03, 2016 at 13:22. Objective Height (Feet): 5 Height (Inches): 7.00 Weight (Kilograms): 89.100 Vital Signs (Past 12Hrs) Vital Signs Past 12 Hours Date Time Temp Pulse Resp B/P (MAP) Pulse Ox O2 Delivery O2 Flow Rate FiO2 12/03/16 16:00 99 Room Air 12/03/16 15:47 36.9 104 18 131/79 (96) 99 Room Air 12/03/16 14:21 36.6 111 20 155/90 (111) 97 Room Air 12/03/16 13:28 96 Room Air 12/03/16 13:21 71 19 146/81 96 Room Air 12/03/16 10:45 69 15 151/90 95 Room Air 12/03/16 10:00 36.5 70 18 156/91 98 Room Air Lab Results (24Hrs) Laboratory Tests (24 Hours) Test 12/03/16 10:45 White Blood Count 4.00 K/uL (4.8-10.8) L Red Blood Count 4.72 M/uL (4.2-5.4) Hemoglobin 14.4 g/dL (12.0-16.0) Hematocrit 42.3 % (37-47) Mean Corpuscular Volume 89.6 fL (80-100) Mean Corpuscular Hemoglobin 30.5 pg (25-34) Mean Corpuscular Hemoglobin Concent 34.0 g/dl (32-36) Platelet Count 267 K/uL (130-400) Mean Platelet Volume 9.3 fL (7.4-10.4) Neutrophils (%) (Auto) 70.2 % Lymphocytes (%) (Auto) 22.8 % Monocytes (%) (Auto) 6.5 % Eosinophils (%) (Auto) 0.0 % Basophils (%) (Auto) 0.0 % Neutrophils # (Auto) 2.81 K/uL (1.4-6.5) Lymphocytes # (Auto) 0.91 K/uL (1.2-3.4) L Monocytes # (Auto) 0.26 K/uL (0.11-0.59) Eosinophils # (Auto) 0.00 K/uL (0-0.5) Basophils # (Auto) 0.00 K/uL (0-0.2) Assessment & Plan Assessment 71 year old female ordered empiric antibiotic therapy for treatment of LUE cellulitis. * presented with worsening rash on left arm * pt is currently being treated for lymphedema of her left arm s/p surgery for breast cancer * afebrile, no leukocytosis Plan Vancomycin for treatment of cellulitis Vancomycin IV * Loading dose: 1900 mg - given in ED * Maintenance dose: 1250 mg IV (14 mg/kg) every 12 hours * Goal trough level for cellulitis : 15 to 20 mcg/mL * Trough level ordered for 12/05/16 Also on Unasyn 3g IV every 8 hours - not pharmacy consult Pharmacy will continue to follow and will adjust dose/frequency as necessary. Thank you.
[2016-12-03] MEDS ORDERED: VANCOMYCIN CONSULT ACTIVE PRN (19:30)
[2016-12-03] MEDS: AMPICILLIN/SULBACTAM SOD INJ 3,000 MG in SODIUM CHLORIDE 0.9% 100ML 100 ML IV SCH (20:39)
[2016-12-03] MEDS: FLUTICASONE PROPIONATE NA SPR 16 GM BTL NAE SCH (20:44)
[2016-12-03] MEDS: LITHIUM CARBONATE 450 MG TABCR PO SCH (20:47)
[2016-12-03] MEDS: GABAPENTIN 300 MG CAP PO SCH (20:48)
[2016-12-03] MEDS: MULTIVITAMIN TAB PO SCH (20:48)
[2016-12-03] MEDS: PRAVASTATIN SOD 40 MG TAB PO SCH (20:49)
[2016-12-03] MEDS: PILOCARPINE HCL 5 MG TAB PO SCH (20:49)
[2016-12-03] MEDS: ASCORBIC ACID 500 MG TAB PO SCH (20:49)
[2016-12-03] MEDS: RANITIDINE HCL 150 MG TAB PO SCH (20:50)
[2016-12-03] MEDS: ENOXAPARIN 40 MG/0.4 ML SYR SQ SCH (20:50)
[2016-12-03] MEDS: TRAZODONE HCL 100 MG TAB PO SCH (22:01)
[2016-12-03] MEDS: ARTIFICIAL TEARS OP SOLN OPB SCH ×2 (22:01)
[2016-12-03 23:16] VITALS: BP 147/81; PULSE 76; TEMP 36.8; O2SAT 92
[2016-12-03] MEDS: VANCOMYCIN INJ 1,250 MG in SODIUM CHLORIDE 0.9% 250ML 250 ML IV SCH (23:38)
[2016-12-04] MEDS: AMPICILLIN/SULBACTAM SOD INJ 3,000 MG in SODIUM CHLORIDE 0.9% 100ML 100 ML IV SCH ×4 (01:09→19:44)
[2016-12-04] MEDS: LEVOTHYROXINE 125 MCG TAB PO SCH (05:42)
[2016-12-04 07:05] VITALS: BP 135/83; PULSE 71; TEMP 36.8; O2SAT 94
[2016-12-04] MEDS: FUROSEMIDE 20 MG TAB PO SCH (07:42)
[2016-12-04] MEDS: CETIRIZINE HCL 10 MG TAB PO SCH (07:43)
[2016-12-04] MEDS: PILOCARPINE HCL 5 MG TAB PO SCH ×4 (07:44→21:35)
[2016-12-04] MEDS: LOSARTAN POTASSIUM 50 MG TAB PO SCH (07:44)
[2016-12-04] MEDS: CYANOCOBALAMIN 100 MCG TAB (VIT B-12) PO SCH (07:45)
[2016-12-04] MEDS: GABAPENTIN 300 MG CAP PO SCH ×3 (07:46→21:33)
[2016-12-04] MEDS: ASCORBIC ACID 500 MG TAB PO SCH ×2 (07:46→21:36)
[2016-12-04] MEDS: ASPIRIN 81 MG ECTAB PO SCH (07:47)
[2016-12-04] MEDS: AMLODIPINE BESYLATE 5 MG TAB PO SCH (07:47)
[2016-12-04] MEDS: LACTOBACILLUS ACIDOPHILUS (FLORANEX) TAB PO SCH ×2 (07:48→17:15)
[2016-12-04] MEDS: ARTIFICIAL TEARS OP SOLN OPB SCH ×4 (07:49→20:17)
[2016-12-04] MEDS: FLUTICASONE PROPIONATE NA SPR 16 GM BTL NAE SCH ×2 (07:49→20:17)
[2016-12-04] MEDS ORDERED: POTASSIUM CHLORIDE 20 MEQ TABCR PO SCH (09:00)
[2016-12-04 09:23] LABS: CREATININE 0.78 mg/dl (0.60-1.20)
--- NOTE | 2016-12-04 10:36 | Progress Note ---
Progress Note Date of Service Dec 04, 2016. Progress Note ID Consult Dictated #[id number] A/P: 1. LUE Cellulitis -Can continue IV abx while in hospital, pt asking to go home today, if so would suggest: Augmentin 875mg po bid and doxy 100mg po bid -Will need continue followup at lymphedema clinic post d/c -No contraindication to d/c from ID standpoint -thank you
--- NOTE | 2016-12-04 10:58 | INFECT. DISEASE CONSULTATION ---
DATE OF CONSULTATION: 12/04/2016 REQUESTING PHYSICIAN: Dr. Black. HISTORY OF PRESENT ILLNESS: This is a 71-year-old female who was admitted to the lymphedema clinic after she had worsening left upper extremity swelling and erythema. She does have a history of breast cancer with lymph node dissection on the left side, which has left her with chronic lymphedema. Her is present with her and states on Wednesday, she began having worsening pain and swelling. While at her lymphedema clinic visit yesterday, it was noted that she had erythema in the area of the forearm. She was subsequently sent to the Emergency Room for additional workup. She has been afebrile since admission to the hospital. Her white blood cell count has been within normal limits. She did have a left upper extremity Doppler done yesterday, which was negative for DVT. There is no micro to review from this admission. She was started empirically on vancomycin and Unasyn and remains on these antibiotics. On my examination today, she is out of bed to chair. She states that the swelling was worse today as was the erythema. She states that her edema is chronic; however, it feels harder in nature than normal. She does have full range of motion of her hand without difficulty. She denies any fevers or chills, but does admit to some cold sweats at home, starting earlier in the week. She is tolerating antibiotics well. She has no chest pain or shortness of breath. She has no nausea, vomiting, diarrhea or abdominal pain. Her appetite has been stable. All remaining review of systems is reviewed and unremarkable. PAST MEDICAL HISTORY: Significant for anxiety, TIA, depression, fatty liver, GERD, bipolar disorder, breast cancer, high cholesterol, hypertension, hypothyroidism and lymphedema. PAST SURGICAL HISTORY: Significant for colonoscopy, cystoscopy, cataract surgery, cervical surgery, lymph node dissection, lumbar surgery, left knee replacement, and surgery to the left nipple. FAMILY HISTORY: Noncontributory. SOCIAL HISTORY: Negative for tobacco use, alcohol use or drug use. ALLERGIES: SHE HAS ALLERGIES TO BACLOFEN, CIPRO, MORPHINE, FLAGYL, SULFA, AMBIEN, AND PROTONIX. CURRENT MEDICATIONS: Include Norvasc, Ecotrin, atenolol, Zyrtec, vitamin B12, Lasix, Cozaar, potassium, Floranex, Synthroid, vancomycin, Lovenox, vitamin C, Flonase, Neurontin, Lamictal, lithium, multivitamins, Salagen, trazodone, Pravachol, Zantac, Unasyn, Bentyl, Ativan, Zofran, Ultram, and Tylenol. PHYSICAL EXAMINATION: VITAL SIGNS: She has been afebrile since admission. Pulse 71, respiratory rate 20, blood pressure 135/83, and oxygen saturation is 92%-99% on room air. GENERAL: She is awake, alert and oriented x3. She is in no acute distress. HEENT: Mucous membranes are moist. Extraocular muscles are intact. HEART: Regular. LUNGS: Clear bilaterally. ABDOMEN: Soft, nontender, and nondistended. EXTREMITIES: There is no lower extremity edema bilaterally. Evaluation of the left upper extremity reveals diffuse edema. There is minimal erythema of the forearm. There are no open lesions. There is minimal warmth and tenderness. There is no edema, fluctuance or induration. LABORATORY STUDIES: CBC yesterday reveals a white blood cell count of 4.0, hemoglobin 14.4 and platelets are 267. Chemistry panel reveals a sodium of 143, potassium 3.3, chloride 109, bicarbonate 28, BUN 6, creatinine 0.8, and glucose is 85. Hep C antibody is negative. There is no micro to review. Imaging is as above. ASSESSMENT AND PLAN: Left upper extremity cellulitis secondary to chronic longstanding lymphedema due to axillary lymph node dissection. At this time, she can be continued on intravenous antibiotics. When she is stable for discharge, my recommendation would be a transition to Augmentin 875 mg twice daily with food and doxycycline 100 mg twice daily with food to complete a duration of 10 days. There is no contraindication to discharge from infectious disease's standpoint when otherwise medically stable. Thank you for this consultation.
[2016-12-04] MEDS ORDERED: POTASSIUM CHLORIDE 10 MEQ TABCR PO ONE (11:31)
[2016-12-04] MEDS: VANCOMYCIN INJ 1,250 MG in SODIUM CHLORIDE 0.9% 250ML 250 ML IV SCH ×2 (11:51→23:57)
[2016-12-04 16:15] VITALS: BP 133/84; PULSE 69; TEMP 36.6; O2SAT 97
[2016-12-04] MEDS: RANITIDINE HCL 150 MG TAB PO SCH (21:34)
[2016-12-04] MEDS: PRAVASTATIN SOD 40 MG TAB PO SCH (21:34)
[2016-12-04] MEDS: TRAZODONE HCL 100 MG TAB PO SCH (21:34)
[2016-12-04] MEDS: MULTIVITAMIN TAB PO SCH (21:36)
[2016-12-04] MEDS: POTASSIUM CHLORIDE 10 MEQ TABCR PO SCH (21:38)
[2016-12-04] MEDS: ENOXAPARIN 40 MG/0.4 ML SYR SQ SCH (21:38)
[2016-12-04] MEDS: LITHIUM CARBONATE 450 MG TABCR PO SCH (21:40)
--- NOTE | 2016-12-04 23:18 | Progress Note ---
Medicine Progress Note Date & Time of Visit: Dec 04, 2016 at 11:00 . Subjective Intermittent chills, documented fever. Persistent swelling and erythema left upper extremity. No chest pain. No cough or shortness of breath. No nausea, vomiting, diarrhea. . Objective Last 8 Hrs Date Time Temp Pulse Resp B/P (MAP) Pulse Ox O2 Delivery O2 Flow Rate FiO2 12/04/16 16:15 36.6 69 20 133/84 (100) 97 Room Air 12/04/16 16:00 Room Air Physical Exam: General- no distress Lungs- clear Heart- regular Abdomen- normal bowel sounds, soft, nontender Extremities- moderate edema left upper extremity with erythema extending from hand to mid upper arm; no pretibial edema or calf tenderness Neuro- alert, oriented . Laboratory Results: Last 24 Hours Test 12/04/16 08:11 Creatinine 0.78 mg/dl Est Creatinine Clear Calc Drug Dose 78.0 ml/min Estimated GFR () 89.9 Estimated GFR (Non- 77.6 Assessment & Plan CELLULITIS LUE Underlying lymphedema due to axillary node dissection. Case discussed with General Surgery and her lymphedema therapist. ID consulted. Continue IV vancomycin and ampicillin/sulbactam. Avoidance of compression therapy for left upper extremity advised for at least 3 days. Transition to oral therapy with doxycycline and amoxicillin/clavulanic acid when improved to complete a ten-day course of therapy. HYPERTENSION Continue atenolol, amlodipine and losartan. HYPOKALEMIA K = 3.3 at time of admission. PO replacement. Check repeat potassium tomorrow morning. DYSLIPIDEMIA Continue pravastatin. HYPOTHYROIDISM Continue levothyroxine. BIPOLAR DISORDER Continue usual meds. VTE PROPHYLAXIS SQ enoxaparin. Ambulate. DISPOSITION Expected discharge to home. Family Medicine follow-up with Dr. Rendon. General Surgery follow-up with Dr. Almodovar. Lymphedema follow-up with [facility]. . Consultants: Infectious Disease . Procedures: Venous duplex left upper extremity Intravenous antibiotics . Current Inpatient Medications: Current Inpatient Medications Medications (Trade) Dose Ordered Sig/Chava Route Start Time Stop Time Status Last Admin Dose Admin Enoxaparin Sodium (Lovenox Inj) 40 mg HS SQ 12/03/16 21:00 01/02/17 20:59 12/04/16 21:38 40 MG Acetaminophen (Tylenol Tab) 650 mg Q4H PRN PO 12/03/16 13:30 01/02/17 13:29 Ondansetron HCl (Zofran Inj) 4 mg Q6H PRN IV 12/03/16 13:30 01/02/17 13:29 Amlodipine Besylate (Norvasc Tab) 5 mg QAM PO 12/04/16 09:00 01/03/17 08:59 12/04/16 07:47 5 MG Ascorbic Acid (Vitamin C Tab) 500 mg BID PO 12/03/16 21:00 01/02/17 20:59 12/04/16 21:36 500 MG Aspirin (Ecotrin Tab) 81 mg QAM PO 12/04/16 09:00 01/03/17 08:59 12/04/16 07:47 81 MG Atenolol (Tenormin Tab) 50 mg QAM PO 12/04/16 09:00 01/03/17 08:59 12/04/16 07:43 50 MG Cetirizine HCl (zyrTEC TAB) 10 mg QAM PO 12/04/16 09:00 01/03/17 08:59 12/04/16 07:43 10 MG Cyanocobalamin (Vitamin B-12 Tab) 100 mcg DAILY PO 12/04/16 09:00 01/03/17 08:59 12/04/16 07:45 100 MCG Dicyclomine HCl (Bentyl Tab) 20 mg QID PRN PO 12/03/16 17:45 01/02/17 17:44 Fluticasone Propionate (Flonase Nasal [place]) 2 sprays BID ALLI 12/03/16 21:00 01/02/17 20:59 12/04/16 20:17 2 SPRAYS Furosemide (Lasix Tab) 20 mg QAM PO 12/04/16 09:00 01/03/17 08:59 12/04/16 07:42 20 MG Gabapentin (Neurontin Cap) 300 mg TID PO 12/03/16 21:00 01/02/17 20:59 12/04/16 21:33 300 MG Lamotrigine (Lamictal Tab) 100 mg BID PO 12/03/16 21:00 01/02/17 20:59 12/04/16 21:36 100 MG Levothyroxine Sodium (Synthroid Tab) 125 mcg DAILYBB PO 12/04/16 06:30 01/03/17 06:29 12/04/16 05:42 125 MCG [place] Carbonate (Eskalith Cr Tab) 450 mg QPM PO 12/03/16 21:00 01/02/17 20:59 12/04/16 21:40 450 MG Lorazepam (Ativan Tab) 0.5 mg Q6H PRN PO 12/03/16 17:45 01/02/17 17:44 Losartan Potassium (coZAAR TAB) 100 mg QAM PO 12/04/16 09:00 01/03/17 08:59 12/04/16 07:44 100 MG Multivitamins (Multivitamin Tab) 1 tab QPM PO 12/03/16 21:00 01/02/17 20:59 12/04/16 21:36 1 TAB Ondansetron HCl (Zofran Tab) 8 mg Q8 PRN PO 12/03/16 17:45 01/02/17 17:44 [place] HCl (Salagen Tab) 5 mg QID PO 12/03/16 21:00 01/02/17 20:59 12/04/16 21:35 5 MG Tramadol HCl (Ultram Tab) 50 mg Q6H PRN PO 12/03/16 17:45 01/02/17 17:44 Trazodone HCl (Desyrel Tab) 100 mg HS PO 12/03/16 21:00 01/02/17 20:59 12/04/16 21:34 100 MG Artificial Tears (Artificial Tears) 1 drops BID OPB 12/03/16 21:00 01/02/17 20:59 12/04/16 20:17 1 DROPS Miscellaneous Information (Order Awaiting Action) 1 ea QS N/A 12/04/16 00:00 01/03/17 00:00 Pravastatin Sodium (Pravachol Tab) 80 mg HS PO 12/03/16 21:00 01/02/17 20:59 12/04/16 21:34 80 MG Lactobacillus Acidophilus (Floranex Tab) 4 tab BIDM PO 12/04/16 08:00 01/03/17 07:59 12/04/16 17:15 4 TAB Ranitidine HCl (zANTac TAB) 300 mg HS PO 12/03/16 21:00 01/02/17 20:59 12/04/16 21:34 300 MG Ampicillin Sodium/ Sulbactam Sodium 3000 mg/Sodium Chloride 108 ml @ 200 mls/hr Q6H IV 12/03/16 19:00 12/13/16 18:59 12/04/16 19:44 200 MLS/HR Vancomycin HCl 1250 mg/Sodium Chloride 275 ml @ 125 mls/hr Q12H IV 12/04/16 00:00 12/13/16 11:59 12/04/16 11:51 125 MLS/HR Vancomycin HCl (Consult) 1 ea UD PRN N/A 12/03/16 19:30 01/02/17 19:29 Miscellaneous Information (Order Awaiting Action) 1 ea QS N/A 12/04/16 12:00 01/03/17 11:59 Potassium Chloride (Klor-Con M10) 10 meq BID PO 12/04/16 21:00 01/03/17 20:59 12/04/16 21:38 10 MEQ
[2016-12-04 23:32] VITALS: BP 130/77; PULSE 71; TEMP 36.8; O2SAT 94
[2016-12-05 00:09] VITALS: O2SAT 94
[2016-12-05] MEDS: ACETAMINOPHEN 325 MG TAB PO PRN ×2 (01:44→16:31)
[2016-12-05] MEDS: AMPICILLIN/SULBACTAM SOD INJ 3,000 MG in SODIUM CHLORIDE 0.9% 100ML 100 ML IV SCH ×2 (02:47→07:52)
[2016-12-05] MEDS: LEVOTHYROXINE 125 MCG TAB PO SCH (06:17)
[2016-12-05 07:32] VITALS: BP 148/85; PULSE 71; TEMP 36.5; O2SAT 96
[2016-12-05] MEDS: LACTOBACILLUS ACIDOPHILUS (FLORANEX) TAB PO SCH ×2 (07:54→17:37)
[2016-12-05] MEDS: ASPIRIN 81 MG ECTAB PO SCH (07:55)
[2016-12-05] MEDS: FLUTICASONE PROPIONATE NA SPR 16 GM BTL NAE SCH ×2 (07:55→21:37)
[2016-12-05] MEDS: ARTIFICIAL TEARS OP SOLN OPB SCH ×4 (07:55→21:37)
[2016-12-05] MEDS: AMLODIPINE BESYLATE 5 MG TAB PO SCH (07:56)
[2016-12-05] MEDS: ASCORBIC ACID 500 MG TAB PO SCH ×2 (07:56→21:36)
[2016-12-05] MEDS: CYANOCOBALAMIN 100 MCG TAB (VIT B-12) PO SCH (07:57)
[2016-12-05] MEDS: PILOCARPINE HCL 5 MG TAB PO SCH ×4 (07:57→21:32)
[2016-12-05] MEDS: FUROSEMIDE 20 MG TAB PO SCH (07:58)
[2016-12-05] MEDS: POTASSIUM CHLORIDE 10 MEQ TABCR PO SCH ×2 (07:59→21:35)
[2016-12-05] MEDS: LOSARTAN POTASSIUM 50 MG TAB PO SCH (07:59)
[2016-12-05] MEDS: GABAPENTIN 300 MG CAP PO SCH ×3 (07:59→21:33)
[2016-12-05] MEDS: CETIRIZINE HCL 10 MG TAB PO SCH (08:00)
[2016-12-05 10:29] VITALS: TEMP 36.7
[2016-12-05] MEDS ORDERED: VANCOMYCIN TROUGH SCH (11:30)
[2016-12-05] MEDS ORDERED: PIPERACILL/TAZOBAC CONSULT ACTIVE PRN (11:30)
[2016-12-05 11:43] LABS: COMPLETE YES; HEMATOCRIT 42.5 % (37-47); IG% 0.4 %; LYMPH % 19.7 %; LYMPH ABS # 0.91 K/uL (1.2-3.4); MEAN CELL VOLUME 89.3 fL (80-100); MEAN CORPUSCULAR HEMOGLOBIN 30.7 pg (25-34); MEAN CORPUSCULAR HGB CONC 34.4 g/dl (32-36); MEAN PLATELET VOLUME 8.8 fL (7.4-10.4); MONO % 9.7 %; NEUT % 70.2 %; PLATELET COUNT 268 K/uL (130-400); RED BLOOD COUNT 4.76 M/uL (4.2-5.4); WHITE BLOOD COUNT 4.62 K/uL (4.8-10.8)
[2016-12-05 12:07] LABS: BUN/CREATININE RATIO 10.3 (10-20); CREATININE 0.78 mg/dl (0.60-1.20); POTASSIUM 3.7 mmol/L (3.5-5.1)
[2016-12-05 12:11] LABS: CREATININE 0.79 mg/dl (0.60-1.20); POTASSIUM 3.8 mmol/L (3.5-5.1)
[2016-12-05] MEDS: VANCOMYCIN INJ 1,250 MG in SODIUM CHLORIDE 0.9% 250ML 250 ML IV SCH (12:38)
[2016-12-05] MEDS ORDERED: PIPERACILL/TAZOBAC IV 3.375 GM in DEXTROSE 5% 100ML IV ONE (13:30)
--- NOTE | 2016-12-05 15:28 | Progress Note ---
Internal Med Progress Note Date of Service: Dec 05, 2016. Provider Documentation: SUBJECTIVE: resting on the chair comfortably in the room says still she is sweating redness in her left upper extremity not getting better afebrile no nausea no diarrhea OBJECTIVE: Vital Signs-as noted below Exam: General-alert and oriented. Not in distress ENT-normal hearing Neck-no neck masses Lungs-cta b/l no wheezing or crackles Heart-s1 and s2 heard regular rate and rhythm, no murmurs Abdomen-soft bowel sounds present non tender no distension Extremities-left upper extremity edematous and mild erythema Neuro-alert and oriented moves extremities Lab data as noted below. ASSESSMENT & PLAN: CELLULITIS LUE Underlying lymphedema due to axillary node dissection. discussed with General Surgery and her lymphedema therapist. ID on board Currently on IV vancomycin and ampicillin/sulbactam. To avoid compression therapy for left upper extremity advised for at least 3 days. Not much improvement as per patient- will change Unasyn to Zosyn and monitor. HYPERTENSION On atenolol, amlodipine and losartan. Will monitor HYPOKALEMIA replaced f/u labs. DYSLIPIDEMIA on pravastatin. HYPOTHYROIDISM on levothyroxine. BIPOLAR DISORDER on Lamictal and lithium seems stable VTE PROPHYLAXIS On SQ enoxaparin. Ambulate. DISPOSITION Possible d/c discharge to home in 2-3 days. Family Medicine follow-up with Dr. Rendon. General Surgery follow-up with Dr. Almodovar. Lymphedema follow-up with [facility]. Vital Signs: Date Time Temp Pulse Resp B/P (MAP) Pulse Ox O2 Delivery O2 Flow Rate FiO2 12/05/16 10:29 36.7 12/05/16 08:00 Room Air 12/05/16 07:32 36.5 71 16 148/85 (106) 96 Room Air 12/05/16 00:09 94 Room Air 12/04/16 23:32 36.8 71 16 130/77 (94) 94 Room Air 12/04/16 16:15 36.6 69 20 133/84 (100) 97 Room Air 12/04/16 16:00 Room Air Lab Results: Results Past 24 Hours Test 12/05/16 11:27 Range/Units White Blood Count 4.62 4.8-10.8 K/uL Red Blood Count 4.76 4.2-5.4 M/uL Hemoglobin 14.6 12.0-16.0 g/dL Hematocrit 42.5 37-47 % Mean Corpuscular Volume 89.3 80-100 fL Mean Corpuscular Hemoglobin 30.7 25-34 pg Mean Corpuscular Hemoglobin Concent 34.4 32-36 g/dl Platelet Count 268 130-400 K/uL Mean Platelet Volume 8.8 7.4-10.4 fL Neutrophils (%) (Auto) 70.2 % Lymphocytes (%) (Auto) 19.7 % Monocytes (%) (Auto) 9.7 % Eosinophils (%) (Auto) 0.0 % Basophils (%) (Auto) 0.0 % Neutrophils # (Auto) 3.24 1.4-6.5 K/uL Lymphocytes # (Auto) 0.91 1.2-3.4 K/uL Monocytes # (Auto) 0.45 0.11-0.59 K/uL Eosinophils # (Auto) 0.00 0-0.5 K/uL Basophils # (Auto) 0.00 0-0.2 K/uL RDW Standard Deviation 49.0 36.4-46.3 fL RDW Coefficient of Variation 14.9 11.5-14.5 % Immature Granulocyte % (Auto) 0.4 % Immature Granulocyte # (Auto) 0.02 0.00-0.02 K/uL Sodium Level 143 136-145 mmol/L Potassium Level 3.7 3.5-5.1 mmol/L Chloride Level 109 98-107 mmol/L Carbon Dioxide Level 28 21-32 mmol/L Anion Gap 6.0 3-11 mmol/L Blood Urea Nitrogen 8 7-18 mg/dl Creatinine 0.78 0.60-1.20 mg/dl Est Creatinine Clear Calc Drug Dose 78.0 ml/min Estimated GFR () 89.9 Estimated GFR (Non- 77.6 BUN/Creatinine Ratio 10.3 10-20 Random Glucose 108 70-99 mg/dl Calcium Level 9.0 8.5-10.1 mg/dl Vancomycin Level Trough 12.6 SEE COMMENT mcg/ml
[2016-12-05 15:49] VITALS: BP 144/80; PULSE 66; TEMP 36.4; O2SAT 96
--- NOTE | 2016-12-05 16:33 | Pharmacy Progress Note ---
Pharmacy Antibiotic Prog Note Date of Service Dec 05, 2016. Subjective The patient is currently receiving vancomycin 1000 mg IV every 12 hours. The patient is currently on day # 3 of vancomycin IV therapy. Objective Height (Feet): 5 Height (Inches): 7.00 Weight (Kilograms): 89.100 Levels: Item Value Date Time Vancomycin Level Trough 12.6 mcg/ml 12/05/16 1127 Lab Results (24hrs): Test 12/05/16 11:27 White Blood Count 4.62 K/uL (4.8-10.8) Red Blood Count 4.76 M/uL (4.2-5.4) Hemoglobin 14.6 g/dL (12.0-16.0) Hematocrit 42.5 % (37-47) Mean Corpuscular Volume 89.3 fL (80-100) Mean Corpuscular Hemoglobin 30.7 pg (25-34) Mean Corpuscular Hemoglobin Concent 34.4 g/dl (32-36) Platelet Count 268 K/uL (130-400) Mean Platelet Volume 8.8 fL (7.4-10.4) Neutrophils (%) (Auto) 70.2 % Lymphocytes (%) (Auto) 19.7 % Monocytes (%) (Auto) 9.7 % Eosinophils (%) (Auto) 0.0 % Basophils (%) (Auto) 0.0 % Neutrophils # (Auto) 3.24 K/uL (1.4-6.5) Lymphocytes # (Auto) 0.91 K/uL (1.2-3.4) Monocytes # (Auto) 0.45 K/uL (0.11-0.59) Eosinophils # (Auto) 0.00 K/uL (0-0.5) Basophils # (Auto) 0.00 K/uL (0-0.2) RDW Standard Deviation 49.0 fL (36.4-46.3) RDW Coefficient of Variation 14.9 % (11.5-14.5) Immature Granulocyte % (Auto) 0.4 % Immature Granulocyte # (Auto) 0.02 K/uL (0.00-0.02) Sodium Level 143 mmol/L (136-145) Potassium Level 3.7 mmol/L (3.5-5.1) Chloride Level 109 mmol/L (98-107) Carbon Dioxide Level 28 mmol/L (21-32) Anion Gap 6.0 mmol/L (3-11) Blood Urea Nitrogen 8 mg/dl (7-18) Creatinine 0.78 mg/dl (0.60-1.20) Est Creatinine Clear Calc Drug Dose 78.0 ml/min Estimated GFR () 89.9 Estimated GFR (Non- 77.6 BUN/Creatinine Ratio 10.3 (10-20) Random Glucose 108 mg/dl (70-99) Calcium Level 9.0 mg/dl (8.5-10.1) Vancomycin Level Trough 12.6 mcg/ml (SEE COMMENT) Recent Pertinent Medications Zosyn 3.375gm IV q 8h ext infusion replaces Unasyn 3gm IV q 6 hrs. Pt experiencing multiple episodes of cold sweats. Assessment & Plan Vancomycin: This drug level is: slightly Subtherapeutic Change to/or continue vancomycin 1000 mg IV every 10 hours. Goal trough level estimate: between 15 - 20 mcg/mL. Peak and trough or random level has been ordered for: 12/07 prior to 0800 dose. Pharmacy will continue to follow and will adjust dose/frequency as necessary. Thank you
[2016-12-05] MEDS: RANITIDINE HCL 150 MG TAB PO SCH (21:33)
[2016-12-05] MEDS: PRAVASTATIN SOD 40 MG TAB PO SCH (21:33)
[2016-12-05] MEDS: TRAZODONE HCL 100 MG TAB PO SCH (21:33)
[2016-12-05] MEDS: MULTIVITAMIN TAB PO SCH (21:35)
[2016-12-05] MEDS: ENOXAPARIN 40 MG/0.4 ML SYR SQ SCH (21:36)
[2016-12-05] MEDS: LITHIUM CARBONATE 450 MG TABCR PO SCH (21:37)
[2016-12-05] MEDS: PIPERACILL/TAZOBAC IV 3.375 GM in DEXTROSE 5% 100ML 100 ML IV SCH (21:44)
[2016-12-05 23:14] VITALS: BP 150/81; PULSE 67; TEMP 36.9; O2SAT 96
[2016-12-06] VITALS: O2SAT 94
[2016-12-06] MEDS: VANCOMYCIN INJ 1,250 MG in SODIUM CHLORIDE 0.9% 250ML 250 ML IV SCH ×3 (02:16→21:40)
[2016-12-06] MEDS: PIPERACILL/TAZOBAC IV 3.375 GM in DEXTROSE 5% 100ML 100 ML IV SCH ×3 (05:12→19:37)
[2016-12-06] MEDS: LEVOTHYROXINE 125 MCG TAB PO SCH (06:30)
[2016-12-06 07:39] VITALS: BP 170/95; PULSE 70; TEMP 36.8; O2SAT 95
[2016-12-06] MEDS: PILOCARPINE HCL 5 MG TAB PO SCH ×4 (07:53→21:30)
[2016-12-06] MEDS: LACTOBACILLUS ACIDOPHILUS (FLORANEX) TAB PO SCH ×2 (07:53→17:02)
[2016-12-06] MEDS: GABAPENTIN 300 MG CAP PO SCH ×3 (07:53→21:27)
[2016-12-06] MEDS: LOSARTAN POTASSIUM 50 MG TAB PO SCH (07:53)
[2016-12-06] MEDS: CYANOCOBALAMIN 100 MCG TAB (VIT B-12) PO SCH (07:53)
[2016-12-06] MEDS: POTASSIUM CHLORIDE 10 MEQ TABCR PO SCH ×2 (07:53→21:27)
[2016-12-06] MEDS: FUROSEMIDE 20 MG TAB PO SCH (07:53)
[2016-12-06] MEDS: ASCORBIC ACID 500 MG TAB PO SCH ×2 (07:54→21:28)
[2016-12-06] MEDS: ASPIRIN 81 MG ECTAB PO SCH (07:54)
[2016-12-06] MEDS: FLUTICASONE PROPIONATE NA SPR 16 GM BTL NAE SCH ×2 (07:54→21:25)
[2016-12-06] MEDS: CETIRIZINE HCL 10 MG TAB PO SCH (07:54)
[2016-12-06] MEDS: AMLODIPINE BESYLATE 5 MG TAB PO SCH (07:54)
[2016-12-06] MEDS: ARTIFICIAL TEARS OP SOLN OPB SCH ×4 (07:55→21:26)
[2016-12-06 08:41] LABS: CREATININE 0.67 mg/dl (0.60-1.20)
[2016-12-06] MEDS ORDERED: CLONIDINE HCL 0.1 MG TAB PO PRN (11:30)
--- NOTE | 2016-12-06 11:30 | Progress Note ---
Internal Med Progress Note Date of Service: Dec 06, 2016. Provider Documentation: SUBJECTIVE: yesterday had difficult time placing new iv line and abx wee delayed for some time sweating improved but left hand still somewhat erythematous afebrile ambulating ok no sob or cough OBJECTIVE: Vital Signs-as noted below Exam: General-alert and oriented. Not in distress ENT-normal hearing Neck-no neck masses Lungs-cta b/l no wheezing or crackles Heart-s1 and s2 heard regular rate and rhythm, no murmurs Abdomen-soft bowel sounds present non tender no distension Extremities-left upper extremity edematous and mild erythema Neuro-alert and oriented moves extremities Lab data as noted below. ASSESSMENT & PLAN: CELLULITIS LUE Underlying lymphedema due to axillary node dissection. discussed with General Surgery and her lymphedema therapist. ID on board Currently on IV vancomycin and ampicillin/sulbactam. To avoid compression therapy for left upper extremity advised for at least 3 days. Not much improvement as per patient- will change Unasyn to Zosyn and monitor. continue current abx for now- will d/w ID in am HYPERTENSION On atenolol, amlodipine and losartan. clonidine prn Will monitor HYPOKALEMIA replaced f/u labs. DYSLIPIDEMIA on pravastatin. HYPOTHYROIDISM on levothyroxine. BIPOLAR DISORDER on Lamictal and lithium seems stable VTE PROPHYLAXIS On SQ enoxaparin. Ambulate. DISPOSITION Possible d/c discharge to home in 1-2 days. Family Medicine follow-up with Dr. Rendon. General Surgery follow-up with Dr. Almodovar. Lymphedema follow-up with [facility]. Vital Signs: Date Time Temp Pulse Resp B/P (MAP) Pulse Ox O2 Delivery O2 Flow Rate FiO2 12/06/16 08:00 Room Air 12/06/16 07:39 36.8 70 16 170/95 (120) 95 Room Air 12/06/16 00:00 94 Room Air 12/05/16 23:14 36.9 67 16 150/81 (104) 96 Room Air 12/05/16 15:49 36.4 66 18 144/80 (101) 96 Room Air 12/05/16 15:46 Room Air Lab Results: Results Past 24 Hours Test 12/06/16 07:37 Range/Units Creatinine 0.67 0.60-1.20 mg/dl Est Creatinine Clear Calc Drug Dose 90.8 ml/min Estimated GFR () 103.9 Estimated GFR (Non- 89.7
[2016-12-06 14:57] VITALS: BP 124/79; PULSE 70; TEMP 36.6; O2SAT 96
[2016-12-06 16:30] VITALS: O2SAT 96
[2016-12-06] MEDS ORDERED: ASTN (19:37)
[2016-12-06] MEDS: AZELASTINE HCL 0.1 % NASAL SPRAY SCH (21:26)
[2016-12-06] MEDS: TRAZODONE HCL 100 MG TAB PO SCH (21:26)
[2016-12-06] MEDS: LITHIUM CARBONATE 450 MG TABCR PO SCH (21:27)
[2016-12-06] MEDS: MULTIVITAMIN TAB PO SCH (21:27)
[2016-12-06] MEDS: ENOXAPARIN 40 MG/0.4 ML SYR SQ SCH (21:28)
[2016-12-06] MEDS: RANITIDINE HCL 150 MG TAB PO SCH (21:28)
[2016-12-06] MEDS: PRAVASTATIN SOD 40 MG TAB PO SCH (21:28)
[2016-12-06 23:32] VITALS: BP 148/91; PULSE 68; TEMP 36.6; O2SAT 99
[2016-12-07] MEDS: PIPERACILL/TAZOBAC IV 3.375 GM in DEXTROSE 5% 100ML 100 ML IV SCH ×3 (04:03→20:34)
[2016-12-07] MEDS: LEVOTHYROXINE 125 MCG TAB PO SCH (06:05)
[2016-12-07] MEDS ORDERED: VANCOMYCIN TROUGH SCH (07:30)
[2016-12-07 07:40] VITALS: BP 170/96; PULSE 77; TEMP 36.7; O2SAT 93
[2016-12-07] MEDS: LACTOBACILLUS ACIDOPHILUS (FLORANEX) TAB PO SCH ×2 (08:41→16:34)
[2016-12-07] MEDS: LOSARTAN POTASSIUM 50 MG TAB PO SCH (08:42)
[2016-12-07] MEDS: GABAPENTIN 300 MG CAP PO SCH ×3 (08:43→21:47)
[2016-12-07] MEDS: ASCORBIC ACID 500 MG TAB PO SCH ×2 (08:47→21:51)
[2016-12-07] MEDS: FUROSEMIDE 20 MG TAB PO SCH (08:47)
[2016-12-07] MEDS: ASPIRIN 81 MG ECTAB PO SCH (08:48)
[2016-12-07] MEDS: CYANOCOBALAMIN 100 MCG TAB (VIT B-12) PO SCH (08:48)
[2016-12-07] MEDS: PILOCARPINE HCL 5 MG TAB PO SCH ×4 (08:49→21:50)
[2016-12-07] MEDS: AMLODIPINE BESYLATE 5 MG TAB PO SCH (08:49)
[2016-12-07] MEDS: CETIRIZINE HCL 10 MG TAB PO SCH (08:49)
[2016-12-07] MEDS: POTASSIUM CHLORIDE 10 MEQ TABCR PO SCH ×2 (08:50→21:55)
[2016-12-07] MEDS: AZELASTINE HCL 0.1 % NASAL SPRAY SCH ×2 (08:51→21:46)
[2016-12-07] MEDS: FLUTICASONE PROPIONATE NA SPR 16 GM BTL NAE SCH ×2 (08:51→21:46)
[2016-12-07] MEDS: ARTIFICIAL TEARS OP SOLN OPB SCH ×4 (08:52→21:45)
[2016-12-07 09:47] LABS: COMPLETE YES; HEMATOCRIT 41.4 % (37-47); IG% 0.2 %; LYMPH ABS # 0.91 K/uL (1.2-3.4); MEAN CELL VOLUME 88.7 fL (80-100); MEAN CORPUSCULAR HEMOGLOBIN 29.8 pg (25-34); MEAN CORPUSCULAR HGB CONC 33.6 g/dl (32-36); MEAN PLATELET VOLUME 8.9 fL (7.4-10.4); MONO % 9.7 %; NEUT % 68.1 %; PLATELET COUNT 256 K/uL (130-400); RED BLOOD COUNT 4.67 M/uL (4.2-5.4); WHITE BLOOD COUNT 4.14 K/uL (4.8-10.8)
[2016-12-07 10:09] LABS: BUN/CREATININE RATIO 8.7 (10-20); CALCIUM 8.8 mg/dl (8.5-10.1); CREATININE 0.78 mg/dl (0.60-1.20); POTASSIUM 3.9 mmol/L (3.5-5.1)
[2016-12-07] MEDS: VANCOMYCIN INJ 1,250 MG in SODIUM CHLORIDE 0.9% 250ML 250 ML IV SCH ×2 (10:11→18:04)
[2016-12-07 10:19] VITALS: BP 148/85; PULSE 68
--- NOTE | 2016-12-07 10:23 | Progress Note ---
Internal Med Progress Note Date of Service: Dec 07, 2016. Provider Documentation: SUBJECTIVE: sweating is less but thinks left upper extremity slightly more swollen and erythematous afebrile eating ok ambulating ok no nausea OBJECTIVE: Vital Signs-as noted below Exam: General-alert and oriented. Not in distress ENT-normal hearing Neck-no neck masses Lungs-cta b/l no wheezing or crackles Heart-s1 and s2 heard regular rate and rhythm, no murmurs Abdomen-soft bowel sounds present non tender no distension Extremities-left upper extremity edematous and mild erythema Neuro-alert and oriented moves extremities Lab data as noted below. ASSESSMENT & PLAN: CELLULITIS LUE Underlying lymphedema due to axillary node dissection. discussed with General Surgery and her lymphedema therapist. ID on board Currently on IV vancomycin and zosyn To avoid compression therapy for left upper extremity advised for at least 3 days. Not much improvement as per patinet and family continue current abx for now- will d/w ID HYPERTENSION On atenolol, amlodipine and losartan. clonidine prn Will monitor HYPOKALEMIA replaced f/u labs. DYSLIPIDEMIA on pravastatin. HYPOTHYROIDISM on levothyroxine. BIPOLAR DISORDER on Lamictal and lithium seems stable VTE PROPHYLAXIS On SQ enoxaparin. Ambulate. DISPOSITION Possible d/c discharge to home in 1-2 days. Family Medicine follow-up with Dr. Rendon. General Surgery follow-up with Dr. Almodovar. Lymphedema follow-up with [facility]. Vital Signs: Date Time Temp Pulse Resp B/P (MAP) Pulse Ox O2 Delivery O2 Flow Rate FiO2 12/07/16 10:19 68 148/85 (106) 12/07/16 08:50 Room Air 12/07/16 07:40 36.7 77 16 170/96 (120) 93 Room Air 12/07/16 00:00 Room Air 12/06/16 23:32 36.6 68 18 148/91 (110) 99 Room Air 12/06/16 16:30 96 Room Air 12/06/16 14:57 36.6 70 16 124/79 (94) 96 Room Air Lab Results: Results Past 24 Hours Test 12/07/16 09:33 Range/Units White Blood Count 4.14 4.8-10.8 K/uL Red Blood Count 4.67 4.2-5.4 M/uL Hemoglobin 13.9 12.0-16.0 g/dL Hematocrit 41.4 37-47 % Mean Corpuscular Volume 88.7 80-100 fL Mean Corpuscular Hemoglobin 29.8 25-34 pg Mean Corpuscular Hemoglobin Concent 33.6 32-36 g/dl Platelet Count 256 130-400 K/uL Mean Platelet Volume 8.9 7.4-10.4 fL Neutrophils (%) (Auto) 68.1 % Lymphocytes (%) (Auto) 22.0 % Monocytes (%) (Auto) 9.7 % Eosinophils (%) (Auto) 0.0 % Basophils (%) (Auto) 0.0 % Neutrophils # (Auto) 2.82 1.4-6.5 K/uL Lymphocytes # (Auto) 0.91 1.2-3.4 K/uL Monocytes # (Auto) 0.40 0.11-0.59 K/uL Eosinophils # (Auto) 0.00 0-0.5 K/uL Basophils # (Auto) 0.00 0-0.2 K/uL RDW Standard Deviation 47.5 36.4-46.3 fL RDW Coefficient of Variation 14.8 11.5-14.5 % Immature Granulocyte % (Auto) 0.2 % Immature Granulocyte # (Auto) 0.01 0.00-0.02 K/uL Sodium Level 145 136-145 mmol/L Potassium Level 3.9 3.5-5.1 mmol/L Chloride Level 113 98-107 mmol/L Carbon Dioxide Level 25 21-32 mmol/L Anion Gap 7.0 3-11 mmol/L Blood Urea Nitrogen 7 7-18 mg/dl Creatinine 0.78 0.60-1.20 mg/dl Est Creatinine Clear Calc Drug Dose 78.0 ml/min Estimated GFR () 89.9 Estimated GFR (Non- 77.6 BUN/Creatinine Ratio 8.7 10-20 Random Glucose 115 70-99 mg/dl Calcium Level 8.8 8.5-10.1 mg/dl Vancomycin Level Trough 18.6 SEE COMMENT mcg/ml
--- NOTE | 2016-12-07 11:20 | Pharmacy Progress Note ---
Pharmacy Antibiotic Prog Note Date of Service Dec 07, 2016. Subjective The patient is currently receiving vancomycin 1250 mg IV every 10 hours and zosyn 3.375 g q8H The patient is currently on day # 5 of IV therapy. Objective Height (Feet): 5 Height (Inches): 7.00 Weight (Kilograms): 89.100 Levels: Last 24 Hours Test 12/07/16 09:33 White Blood Count 4.14 K/uL Red Blood Count 4.67 M/uL Hemoglobin 13.9 g/dL Hematocrit 41.4 % Mean Corpuscular Volume 88.7 fL Mean Corpuscular Hemoglobin 29.8 pg Mean Corpuscular Hemoglobin Concent 33.6 g/dl Platelet Count 256 K/uL Mean Platelet Volume 8.9 fL Neutrophils (%) (Auto) 68.1 % Lymphocytes (%) (Auto) 22.0 % Monocytes (%) (Auto) 9.7 % Eosinophils (%) (Auto) 0.0 % Basophils (%) (Auto) 0.0 % Neutrophils # (Auto) 2.82 K/uL Lymphocytes # (Auto) 0.91 K/uL Monocytes # (Auto) 0.40 K/uL Eosinophils # (Auto) 0.00 K/uL Basophils # (Auto) 0.00 K/uL RDW Standard Deviation 47.5 fL RDW Coefficient of Variation 14.8 % Immature Granulocyte % (Auto) 0.2 % Immature Granulocyte # (Auto) 0.01 K/uL Sodium Level 145 mmol/L Potassium Level 3.9 mmol/L Chloride Level 113 mmol/L Carbon Dioxide Level 25 mmol/L Anion Gap 7.0 mmol/L Blood Urea Nitrogen 7 mg/dl Creatinine 0.78 mg/dl Est Creatinine Clear Calc Drug Dose 78.0 ml/min Estimated GFR () 89.9 Estimated GFR (Non- 77.6 BUN/Creatinine Ratio 8.7 Random Glucose 115 mg/dl Calcium Level 8.8 mg/dl Vancomycin Level Trough 18.6 mcg/ml Lab Results (24hrs): Test 12/07/16 09:33 White Blood Count 4.14 K/uL (4.8-10.8) Red Blood Count 4.67 M/uL (4.2-5.4) Hemoglobin 13.9 g/dL (12.0-16.0) Hematocrit 41.4 % (37-47) Mean Corpuscular Volume 88.7 fL (80-100) Mean Corpuscular Hemoglobin 29.8 pg (25-34) Mean Corpuscular Hemoglobin Concent 33.6 g/dl (32-36) Platelet Count 256 K/uL (130-400) Mean Platelet Volume 8.9 fL (7.4-10.4) Neutrophils (%) (Auto) 68.1 % Lymphocytes (%) (Auto) 22.0 % Monocytes (%) (Auto) 9.7 % Eosinophils (%) (Auto) 0.0 % Basophils (%) (Auto) 0.0 % Neutrophils # (Auto) 2.82 K/uL (1.4-6.5) Lymphocytes # (Auto) 0.91 K/uL (1.2-3.4) Monocytes # (Auto) 0.40 K/uL (0.11-0.59) Eosinophils # (Auto) 0.00 K/uL (0-0.5) Basophils # (Auto) 0.00 K/uL (0-0.2) RDW Standard Deviation 47.5 fL (36.4-46.3) RDW Coefficient of Variation 14.8 % (11.5-14.5) Immature Granulocyte % (Auto) 0.2 % Immature Granulocyte # (Auto) 0.01 K/uL (0.00-0.02) Sodium Level 145 mmol/L (136-145) Potassium Level 3.9 mmol/L (3.5-5.1) Chloride Level 113 mmol/L (98-107) Carbon Dioxide Level 25 mmol/L (21-32) Anion Gap 7.0 mmol/L (3-11) Blood Urea Nitrogen 7 mg/dl (7-18) Creatinine 0.78 mg/dl (0.60-1.20) Est Creatinine Clear Calc Drug Dose 78.0 ml/min Estimated GFR () 89.9 Estimated GFR (Non- 77.6 BUN/Creatinine Ratio 8.7 (10-20) Random Glucose 115 mg/dl (70-99) Calcium Level 8.8 mg/dl (8.5-10.1) Vancomycin Level Trough 18.6 mcg/ml (SEE COMMENT) Assessment & Plan vancomycin trough of 18.6 is Therapeutic and was drawn appropriately (9.5 hrs from last dose) in regards to doses. Previous doses were given 12 hours apart due to problems with line access. Continue vancomycin 1250 mg q10H, Zosyn dose also appropriate. Goal peak level estimate: between 30 - 40 mcg/mL. Goal trough level estimate: between 15-20 mcg/mL. Per physician notes- discussing abx with ID Pharmacy will continue to follow and will adjust dose/frequency as necessary. Thank you
--- NOTE | 2016-12-07 13:10 | Progress Note ---
Subjective Date of Service: Dec 07, 2016. Subjective Pt evaluation today including: conversation w/ patient, physical exam, chart review, lab review pt eating lunch on my exam. no f/c. doing better. tolerating abx. no pain. improving. wbc nml. all remaining ros reviewed and are negative. Problem List Medical Problems: (1) Abnormal white blood cell (WBC) count Status: Acute (2) Lymphedema Status: Chronic Surgical Problems: (1) History of back surgery Status: Acute (2) History of knee surgery Status: Acute (3) History of neck surgery Status: Acute Objective Vital Signs Date Time Temp Pulse Resp B/P (MAP) Pulse Ox O2 Delivery O2 Flow Rate FiO2 12/07/16 10:19 68 148/85 (106) 12/07/16 08:50 Room Air 12/07/16 07:40 36.7 77 16 170/96 (120) 93 Room Air 12/07/16 00:00 Room Air 12/06/16 23:32 36.6 68 18 148/91 (110) 99 Room Air 12/06/16 16:30 96 Room Air 12/06/16 14:57 36.6 70 16 124/79 (94) 96 Room Air Physical Exam General Appearance: WD/WN, no apparent distress Eyes: normal inspection, EOMI Neck: supple Respiratory/Chest: lungs clear, normal breath sounds, no respiratory distress Cardiovascular: regular rate, rhythm, no edema Extremities: non-tender Neurologic/Psychiatric: alert, oriented x 3 Skin: normal color Comments: lue swelling persists but erythema resolved Laboratory Results Last 24 Hours Test 12/07/16 09:33 White Blood Count 4.14 K/uL Red Blood Count 4.67 M/uL Hemoglobin 13.9 g/dL Hematocrit 41.4 % Mean Corpuscular Volume 88.7 fL Mean Corpuscular Hemoglobin 29.8 pg Mean Corpuscular Hemoglobin Concent 33.6 g/dl Platelet Count 256 K/uL Mean Platelet Volume 8.9 fL Neutrophils (%) (Auto) 68.1 % Lymphocytes (%) (Auto) 22.0 % Monocytes (%) (Auto) 9.7 % Eosinophils (%) (Auto) 0.0 % Basophils (%) (Auto) 0.0 % Neutrophils # (Auto) 2.82 K/uL Lymphocytes # (Auto) 0.91 K/uL Monocytes # (Auto) 0.40 K/uL Eosinophils # (Auto) 0.00 K/uL Basophils # (Auto) 0.00 K/uL RDW Standard Deviation 47.5 fL RDW Coefficient of Variation 14.8 % Immature Granulocyte % (Auto) 0.2 % Immature Granulocyte # (Auto) 0.01 K/uL Sodium Level 145 mmol/L Potassium Level 3.9 mmol/L Chloride Level 113 mmol/L Carbon Dioxide Level 25 mmol/L Anion Gap 7.0 mmol/L Blood Urea Nitrogen 7 mg/dl Creatinine 0.78 mg/dl Est Creatinine Clear Calc Drug Dose 78.0 ml/min Estimated GFR () 89.9 Estimated GFR (Non- 77.6 BUN/Creatinine Ratio 8.7 Random Glucose 115 mg/dl Calcium Level 8.8 mg/dl Vancomycin Level Trough 18.6 mcg/ml Assessment and Plan (1) Cellulitis of upper extremity Assessment & Plan: improved. can transition to complete po abx as previously planned. (2) Lymphedema Problem Qualifiers (1) Cellulitis of upper extremity: Laterality: left Qualified Codes: L03.114 - Cellulitis of left upper limb
[2016-12-07] MEDS: ACETAMINOPHEN 325 MG TAB PO PRN (14:52)
[2016-12-07 14:54] VITALS: BP 146/81; PULSE 69; TEMP 36.7; O2SAT 96
[2016-12-07] MEDS: TRAZODONE HCL 100 MG TAB PO SCH (21:46)
[2016-12-07] MEDS: RANITIDINE HCL 150 MG TAB PO SCH (21:48)
[2016-12-07] MEDS: PRAVASTATIN SOD 40 MG TAB PO SCH (21:49)
[2016-12-07] MEDS: ENOXAPARIN 40 MG/0.4 ML SYR SQ SCH (21:50)
[2016-12-07] MEDS: LITHIUM CARBONATE 450 MG TABCR PO SCH (21:54)
[2016-12-07] MEDS: MULTIVITAMIN TAB PO SCH (21:54)
[2016-12-07 23:30] VITALS: BP 148/76; PULSE 63; TEMP 36.8; O2SAT 94
[2016-12-08] MEDS: VANCOMYCIN INJ 1,250 MG in SODIUM CHLORIDE 0.9% 250ML 250 ML IV SCH (04:16)
[2016-12-08] MEDS: PIPERACILL/TAZOBAC IV 3.375 GM in DEXTROSE 5% 100ML 100 ML IV SCH (04:16)
[2016-12-08] MEDS: LEVOTHYROXINE 125 MCG TAB PO SCH (06:12)
[2016-12-08 07:21] VITALS: BP 146/86; PULSE 75; TEMP 36.7; O2SAT 93
[2016-12-08 08:13] LABS: CREATININE 0.7 mg/dl (0.60-1.20)
[2016-12-08 08:56] VITALS: BP 146/84; PULSE 91
[2016-12-08] MEDS: FLUTICASONE PROPIONATE NA SPR 16 GM BTL NAE SCH (08:57)
[2016-12-08] MEDS: LACTOBACILLUS ACIDOPHILUS (FLORANEX) TAB PO SCH (08:57)
[2016-12-08] MEDS: ARTIFICIAL TEARS OP SOLN OPB SCH ×2 (08:58)
[2016-12-08] MEDS: ASPIRIN 81 MG ECTAB PO SCH (08:58)
[2016-12-08] MEDS: AZELASTINE HCL 0.1 % NASAL SPRAY SCH (08:58)
[2016-12-08] MEDS: GABAPENTIN 300 MG CAP PO SCH (08:58)
[2016-12-08] MEDS: AMLODIPINE BESYLATE 5 MG TAB PO SCH (08:59)
[2016-12-08] MEDS: POTASSIUM CHLORIDE 10 MEQ TABCR PO SCH (08:59)
[2016-12-08] MEDS: CYANOCOBALAMIN 100 MCG TAB (VIT B-12) PO SCH (09:00)
[2016-12-08] MEDS: ASCORBIC ACID 500 MG TAB PO SCH (09:00)
[2016-12-08] MEDS: CETIRIZINE HCL 10 MG TAB PO SCH (09:00)
[2016-12-08] MEDS: PILOCARPINE HCL 5 MG TAB PO SCH (09:01)
[2016-12-08] MEDS: LOSARTAN POTASSIUM 50 MG TAB PO SCH (09:01)
[2016-12-08] MEDS: FUROSEMIDE 20 MG TAB PO SCH (09:02)
[2016-12-08] MEDS ORDERED: DOXY100C41 PO (10:22)
[2016-12-08] MEDS ORDERED: LCTX PO (10:22)
[2016-12-08] MEDS ORDERED: AMOX875T PO (10:22)
--- NOTE | 2016-12-08 10:24 | Discharge Instructions ---
Discharge Instructions Date of Service Dec 08, 2016. Admission Reason for Admission: Cellulitis Of Upper Extremity Discharge Discharge Diagnosis / Problem: CELLULITIS OF LEFT UPPER EXTREMITY Discharge Goals Goal(s): Decrease discomfort, Improve function Activity Recommendations Activity Limitations: resume your previous activity . Instructions / Follow-Up Instructions / Follow-Up FOLLOWUP WITH FAMILY DOCTOR Tonie Hearn ON AT 11AM CONTINUE OUT PATIENT PT WITH LYMPHEDEMA CLINIC Current Hospital Diet Patient's current hospital diet: AHA Diet (Heart Healthy) Discharge Diet Recommended Diet: AHA Diet (Heart Healthy) Pending Studies Studies pending at discharge: no Medical Emergencies . Who to Call and When: Medical Emergencies: If at any time you feel your situation is an emergency, please call 911 immediately. . Non-Emergent Contact Non-Emergency issues call your: Primary Care Provider . . "Provider Documentation" section prepared by Mich Castellanos. . VTE Core Measure Inpt VTE Proph given/why not?: Enoxaparin (Lovenox)SQ
[2016-12-08 10:43] VITALS: BP 146/84; PULSE 91; TEMP 36.7; O2SAT 93
--- NOTE | 2016-12-08 10:48 | Progress Note ---
Internal Med Progress Note Date of Service: Dec 08, 2016. Provider Documentation: SUBJECTIVE: feeling tired has pain at iv site no more sweating afebrile ok to go home OBJECTIVE: Vital Signs-as noted below Exam: General-alert and oriented. Not in distress ENT-normal hearing Neck-no neck masses Lungs-cta b/l no wheezing or crackles Heart-s1 and s2 heard regular rate and rhythm, no murmurs Abdomen-soft bowel sounds present non tender no distension Extremities-left upper extremity edematous and mild erythema Neuro-alert and oriented moves extremities Lab data as noted below. ASSESSMENT & PLAN: CELLULITIS LUE Underlying lymphedema due to axillary node dissection. discussed with General Surgery and her lymphedema therapist. ID on board Currently on IV vancomycin and zosyn To avoid compression therapy for left upper extremity advised for at least 3 days. Not much improvement as per patient and family continue current abx for now- will d/w ID ID ok to change to po abx to complete 10 day course f/u with lymphedema clinic HYPERTENSION On atenolol, amlodipine and losartan. clonidine prn f/u with pcp HYPOKALEMIA replaced f/u labs. DYSLIPIDEMIA on pravastatin. HYPOTHYROIDISM on levothyroxine. BIPOLAR DISORDER on Lamictal and lithium seems stable Discharged home Vital Signs: Date Time Temp Pulse Resp B/P (MAP) Pulse Ox O2 Delivery O2 Flow Rate FiO2 12/08/16 08:56 91 146/84 (104) 12/08/16 08:00 Room Air 12/08/16 07:21 36.7 75 18 146/86 (106) 93 Room Air 12/08/16 00:00 Room Air 12/07/16 23:30 36.8 63 18 148/76 (100) 94 Room Air 12/07/16 16:00 Room Air 12/07/16 14:54 36.7 69 16 146/81 (102) 96 Room Air Lab Results: Results Past 24 Hours Test 12/08/16 07:00 Range/Units Creatinine 0.70 0.60-1.20 mg/dl Est Creatinine Clear Calc Drug Dose 86.9 ml/min Estimated GFR () 102.5 Estimated GFR (Non- 88.4
--- NOTE | 2016-12-08 18:42 | Discharge Summary ---
Discharge Summary Date of Service Dec 08, 2016. Discharge Summary Admission Date: Dec 03, 2016 at 13:22 Discharge Date: Dec 08, 2016 Discharge Disposition: Home Principal Diagnosis: LEFT UPPER EXTREMITY CELLULITIS Secondary Diagnoses/Problems: (1) Anxiety Status: Chronic (2) Cerebrovascular disease Permanent Comment: history TIA Status: Chronic (3) Depression Status: Chronic (4) Fatty liver Status: Chronic (5) GERD (gastroesophageal reflux disease) Status: Chronic (6) History of bipolar disorder Status: Chronic (7) History of breast cancer Permanent Comment: Abnormal left breast mammogram revealing left axillary adenopathy 11/29/2012 Status post fine-needle aspiration of the left breast 01/03/2013 revealing suspicious cells for metastatic neoplasm Status post ultrasound-guided biopsy of the left axilla revealing metastatic adenocarcinoma Status post left axillary dissection staged [id number] Systemic chemotherapy with TAC Status post completion of radiation therapy 11/09/2013 received 5040 cGy to the left breast and 4680 cGy to left supraclavicular area and axilla Status post left nipple surgery 05/23/2014. Pathology benign Status: Chronic (8) History of TIA (transient ischemic attack) Status: Chronic (9) Hyperlipidemia Status: Chronic (10) Hypertension Status: Chronic (11) Hypothyroidism Status: Chronic (12) Lymphedema Status: Chronic Procedures: Venous duplex left upper extremity Intravenous antibiotics . Consultations: Infectious Disease . Medication Reconciliation New Medications: Amoxicillin & Pot Clavulanate (Augmentin 875-125 mg) 1 Tab Tab 875 MG PO BID, #12 TAB Doxycycline (Monohydrate) (Monodox) 100 Mg Cap 100 MG PO BID, #12 CAP Lactobacillus Acidophilus (Lactinex) Tab 2 TAB PO BID, #40 TAB Continued Medications: Amlodipine (Norvasc) 5 Mg Tab 5 MG PO QAM, TAB Artificial Tear Solution (Soothe Xp) 1 Reese Reese 1 DROP OPB BID Ascorbic Acid (Vitamin C) 500 Mg Tab 500 MG PO BID Aspirin Enteric Coated (Ecotrin Or Generic) 81 Mg Tab 81 MG PO QAM, TAB Atenolol (Atenolol) 50 Mg Tab 50 MG PO QAM, #90 Azelastine Hcl (Astelin Nasal [place]) 200 Sprays/30 Ml [place] 2 SPRAYS NA BID Calcium Carbonate-Vitamin D (Calcium) 1 Tab Tab 1 TAB PO DAILY Cetirizine (Zyrtec) 10 Mg Tab 10 MG PO QAM, TAB Cranberry (Vaccinium Macrocarp (Cranberry) 300 Mg Tab 300 MG PO TID Cyanocobalamin (Vitamin B-12) 100 Mcg Tab 100 MCG PO DAILY, TAB Dicyclomine Hcl (Bentyl) 20 Mg Tab 20 MG PO QID PRN for abdominal cramping Fluticasone Propionate (Nasal) (Flonase Allergy Relief) 50 Mcg/Act Spr 2 SPRAYS ALLI AMPM Furosemide (Lasix) 20 Mg Tab 20 MG PO QAM Gabapentin (Neurontin) 300 Mg Cap 300 MG PO TID, CAP Lamotrigine (Lamictal) 100 Mg Tab 100 MG PO AMPM, TAB Levothyroxine Sodium (Levothyroxine Sodium) 125 Mcg Tab 125 MCG PO QAM [place] Carbonate Ext Rel (Lithobid Ext Rel) 450 Mg Tabcr 450 MG PO QPM 2100 Lorazepam (Lorazepam) 1 Mg Tab 0.5-1 MG PO Q6H PRN for Anxiety for 15 Days, TAB Losartan Potassium (Cozaar) 100 Mg Tab 100 MG PO QAM, #90 Meclizine Hcl (Meclizine Hcl) 25 Mg Tab 50 MG PO TID PRN for Nausea for 10 Days, #60 TAB Multivitamin (Multivitamin) Tab 1 TAB PO QPM, TAB Fdmbhuig-Nseftbcto-Yj (Otic) (Neomycin/Polymyxin/Hc) 1 Nat Nat 1 DROPS OTB 2XWK Omeprazole (Prilosec) 20 Mg Capcr 20 MG PO BID, CAP Ondansetron Hcl (Zofran) 8 Mg Tab 8 MG PO Q8 PRN for Nausea, TAB Pilocarpine (Salagen) 5 Mg Tab 5 MG PO QID, TAB Pravastatin Sodium (Pravastatin Sodium) 80 Mg Tab 80 MG PO HS, #90 Probiotic Product (Probiotic) 1 Tab Tab 1 TAB PO BID Promethazine Hcl (Phenergan) 25 Mg Tab 25 MG PO Q6H PRN for Nausea, TAB Ranitidine (Zantac) 300 Mg Tab 300 MG PO HS, TAB Tramadol Hcl (Ultram) 50 Mg Tab 50-100 MG PO TID PRN for Pain NEEDED FOR PAIN. Trazodone Hcl (Trazodone) 100 Mg Tab 100 MG PO HS, TAB Admission Information HPI (per Admitting provider): 71 YO female followed by Dr. Rendon for Family Medicine and Dr. Almodovar for General Surgery. History of hypertension, breast Ca, and other problems noted below. Chronic lymphedema of LUE due to axillary dissection. Followed at [facility] lymphedema clinic. Noted increased swelling and erythema of LUE a few days ago. No trauma. No fever, but experiencing cold sweats. . Physical Exam (per Admitting): General Appearance: WD/WN, no apparent distress Head: normocephalic, atraumatic Eyes: normal inspection, PERRL, EOMI, sclerae normal ENT: hearing grossly normal, pharynx normal Neck: supple, no adenopathy, thyroid normal, no JVD, trachea midline Respiratory/Chest: lungs clear, no respiratory distress, no accessory muscle use Cardiovascular: regular rate, rhythm, no edema, no gallop, no JVD, no murmur Abdomen/GI: normal bowel sounds, non tender, soft, no organomegaly, no pulsatile mass Extremities/Musculoskelatal: no calf tenderness, no pedal edema, + pertinent finding (lymphedema LUE) 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 discussed with General Surgery and her lymphedema therapist. ID on board Currently on IV vancomycin and zosyn To avoid compression therapy for left upper extremity advised for at least 3 days. Not much improvement as per patient and family continue current abx for now- will d/w ID ID ok to change to po abx to complete 10 day course f/u with lymphedema clinic HYPERTENSION On atenolol, amlodipine and losartan. clonidine prn f/u with pcp HYPOKALEMIA replaced f/u labs. DYSLIPIDEMIA on pravastatin. HYPOTHYROIDISM on levothyroxine. BIPOLAR DISORDER on Lamictal and lithium seems stable Discharged home Total time spent on discharge = 35MINUTES This includes examination of the patient, discharge planning, medication reconciliation, and communication with other providers. Discharge Instructions Discharge Instructions Date of Service Dec 08, 2016. Admission Reason for Admission: Cellulitis Of Upper Extremity Discharge Discharge Diagnosis / Problem: CELLULITIS OF LEFT UPPER EXTREMITY Discharge Goals Goal(s): Decrease discomfort, Improve function Activity Recommendations Activity Limitations: resume your previous activity . Instructions / Follow-Up Instructions / Follow-Up FOLLOWUP WITH FAMILY DOCTOR Tonie Hearn ON AT 11AM CONTINUE OUT PATIENT PT WITH LYMPHEDEMA CLINIC Current Hospital Diet Patient's current hospital diet: AHA Diet (Heart Healthy) Discharge Diet Recommended Diet: AHA Diet (Heart Healthy) Pending Studies Studies pending at discharge: no Medical Emergencies . Who to Call and When: Medical Emergencies: If at any time you feel your situation is an emergency, please call 911 immediately. . Non-Emergent Contact Non-Emergency issues call your: Primary Care Provider . . "Provider Documentation" section prepared by Mich Castellanos. . VTE Core Measure Inpt VTE Proph given/why not?: Enoxaparin (Lovenox)SQ
== END 2016-12-08 11:20 | disposition home or self-care (01) | DRG 603 ==
LOC: C.EDB 09:52 → C.MS2W 13:22 → EDBEDREQSVC 13:52 → ENRESERV 13:58
PROVIDERS: ADMIT Hospitalist; ATTEND Internal Medicine
DX: L03.114 Cellulitis of left upper limb (principal); I97.2 Postmastectomy lymphedema syndrome; K21.9 Gastro-esophageal reflux disease without esophagitis; F31.9 Bipolar disorder, unspecified; E78.5 Hyperlipidemia, unspecified; E87.6 Hypokalemia; E03.9 Hypothyroidism, unspecified; K76.0 Fatty (change of) liver, not elsewhere classified; Z96.652 Presence of left artificial knee joint; Z88.2 Allergy status to sulfonamides; Z85.3 Personal history of malignant neoplasm of breast; Z86.73 Personal history of transient ischemic attack (TIA), and cerebral infarction without residual deficits; Z92.3 Personal history of irradiation

== ENCOUNTER → 2017-01-13 | Outpatient (CLI) | payer OTHER, MEDICARE ==
[~2017-01-13] MED LIST changes: +AMLO-110 PO; +ARTIDRO2 OPB; +ASCA500 PO; +ASTN; +CALC-51 PO; -CALCTAB5 PO; -CYCL0.052 OP; -FLNIN NAE; +FLUT0.15 NAE; +LAMO100T16 PO; -LAMO25TA PO; +LCTX PO; +MECL1TAB42 PO; -NRV/10 PO; +ONDA8TAB6 PO; +PILO5TAB10 PO; -POLYSOL OPB; +PROB1TAB16 PO; +PROM25TA9 PO; +TRAZ100T29 PO
[2017-01-13 15:06] LABS: COMPLETE YES; HEMATOCRIT 43.3 % (37-47); IG% 0.5 %; LYMPH % 15.5 %; LYMPH ABS # 1.33 K/uL (1.2-3.4); MEAN CELL VOLUME 86.1 fL (80-100); MEAN CORPUSCULAR HEMOGLOBIN 28.2 pg (25-34); MEAN CORPUSCULAR HGB CONC 32.8 g/dl (32-36); MEAN PLATELET VOLUME 9.3 fL (7.4-10.4); MONO % 8.7 %; NEUT % 75.3 %; PLATELET COUNT 311 K/uL (130-400); RED BLOOD COUNT 5.03 M/uL (4.2-5.4); WHITE BLOOD COUNT 8.59 K/uL (4.8-10.8)
[2017-01-13 15:39] LABS: ALT/SGPT 20 U/L (12-78); BLOOD UREA NITROGEN 8 mg/dl (7-18); BUN/CREATININE RATIO 8.8 (10-20); CALCIUM 9.8 mg/dl (8.5-10.1); CARBON DIOXIDE 24 mmol/L (21-32); CHLORIDE 106 mmol/L (98-107); GLUCOSE 91 mg/dl (70-99); POTASSIUM 3.9 mmol/L (3.5-5.1); SODIUM 141 mmol/L (136-145)
[2017-01-13 15:42] LABS: ALKALINE PHOSPHATASE 79 U/L (45-117); AST/SGOT 16 U/L (15-37)
== END | disposition home or self-care (01) ==
LOC: C.LAB1850 13:32
PROVIDERS: ATTEND Internal Medicine Infectious Disease
DX: L03.114 Cellulitis of left upper limb (principal)

== ENCOUNTER 2017-03-28 22:46 | Inpatient (IN) | payer OTHER, MEDICARE ==
[~2017-03-28] VITALS: Ht 170.2 cm; Wt 89.4 kg
[~2017-03-28 22:46] MED LIST changes: -LEVO125T4 PO; +LEVO125T5 PO; +NEOM1SOL25 OTB; -NEOM1SOL7 OTB
[2017-03-28] MEDS ORDERED: SODIUM CHLORIDE 0.9% 500ML 500 ML IV STA (22:57)
[2017-03-28] MEDS ORDERED: ONDANSETRON INJ 2 MG/ML 2 ML VIAL IV STA (22:57)
[2017-03-28] MEDS ORDERED: SODIUM CHLORIDE 0.9% 1000ML 1,000 ML IV STA (22:57)
--- NOTE | 2017-03-28 23:15 | DIAGNOSTIC IMAGING REPORT ---
CHEST ONE VIEW PORTABLE CLINICAL HISTORY: 71 years-old Female presenting with EVALUATE WEAKNESS. TECHNIQUE: Portable upright AP view of the chest was obtained. COMPARISON: 10/23/2015. FINDINGS: Cardiomediastinal silhouette normal. Diffuse hazy pulmonary opacity in the right lung with bronchial wall thickening. No large pleural effusion or pneumothorax. Left lung and pleural space clear. Left axillary surgical clips noted. Degenerative changes of the glenohumeral joints and spine. Partially visualized cervical fusion hardware. Partially visualized lumbar fusion hardware. Upper abdomen normal. IMPRESSION: 1. Hazy pulmonary opacity in the right lung concerning for pneumonia. Electronically signed by: Josué Cardenas M.D. 03/28/2017 11:13 PM Dictated Date/Time: 03/28/2017 11:13 PM
[2017-03-28 23:37] LABS: BASO % 0.1 %; BASO ABS # 0.01 K/uL (0-0.2); COMPLETE YES; EOS % 0.1 %; HEMATOCRIT 38.2 % (37-47); IG% 0.3 %; LYMPH % 11.2 %; LYMPH ABS # 1.06 K/uL (1.2-3.4); MEAN CELL VOLUME 86.8 fL (80-100); MEAN CORPUSCULAR HEMOGLOBIN 29.8 pg (25-34); MEAN CORPUSCULAR HGB CONC 34.3 g/dl (32-36); MEAN PLATELET VOLUME 8.8 fL (7.4-10.4); MONO % 7.2 %; NEUT % 81.1 %; PLATELET COUNT 192 K/uL (130-400); WHITE BLOOD COUNT 9.44 K/uL (4.8-10.8)
[2017-03-28] MEDS ORDERED: LMC/150 PO (23:41)
[2017-03-28] MEDS ORDERED: ATV/1 PO (23:41)
[2017-03-28 23:45] LABS: INR 1.1 (0.9-1.1); PARTIAL THROMBOPLASTIN RATIO 1.2; PROTHROMBIN TIME (PATIENT) 11.2 SECONDS (9.0-12.0)
[2017-03-28 23:55] LABS: ALT/SGPT 18 U/L (12-78); BLOOD UREA NITROGEN 19 mg/dl (7-18); BUN/CREATININE RATIO 12.2 (10-20); CALCIUM 9.1 mg/dl (8.5-10.1); CARBON DIOXIDE 25 mmol/L (21-32); CHLORIDE 99 mmol/L (98-107); CREATININE 1.56 mg/dl (0.60-1.20); GLUCOSE 91 mg/dl (70-99); MAGNESIUM 1.6 mg/dl (1.8-2.4); POTASSIUM 3.6 mmol/L (3.5-5.1); SODIUM 133 mmol/L (136-145)
[2017-03-29] VITALS (7 sets, daily range): BP systolic 113–124; BP diastolic 66–78; PULSE 69–106; TEMP 36.7–37.4; O2SAT 91–97; Ht 170.2 cm; Wt 89.4 kg
[2017-03-29 00:03] LABS: ALKALINE PHOSPHATASE 65 U/L (45-117); AST/SGOT 13 U/L (15-37); THYROID STIMULATING HORMONE 0.275 uIu/ml (0.300-4.500)
[2017-03-29] MEDS ORDERED: CEFTRIAXONE SOD INJ 1 GM ADDVIAL IV STA (00:06)
[2017-03-29] MEDS ORDERED: MAGNESIUM SULFATE 1GM / D5W 1 GM BAG IV STA (00:31)
[2017-03-29] MEDS ORDERED: SODIUM CHLORIDE 0.9% 500ML 500 ML IV STA (00:32)
[2017-03-29] MEDS ORDERED: OPTIRAY 320 IV PRN (00:45)
[2017-03-29] MEDS ORDERED: DOXYCYCLINE IV 100 MG in DEXTROSE 5% 100ML 100 ML IV STA (01:20)
[2017-03-29] MEDS ORDERED: AMPICILLIN/SULBACTAM SOD INJ 3,000 MG in SODIUM CHLORIDE 0.9% 100ML 100 ML IV STA (02:08)
--- NOTE | 2017-03-29 02:46 | EMERGENCY ROOM VISIT NOTE ---
History Report prepared by Ricardo: Johanna Rhodes Under the Supervision of: Dr. Chris Velasquez M.D. First contact with patient: 22:54 Chief Complaint: VOMITING Stated Complaint: WEAKNESS, VOMITING History of Present Illness The patient is a 71 year old female who presents to the Emergency Room with complaints of persistent generalized weakness that began at 0600. The patient's states that this morning, his woke him up, noting she was shaking in bed, had chills, and felt cold. She has been nauseous, vomiting, and has been coughing clear mucous. The patient became dizzy and light headed when ambulating. The patient's notes she had a fever of 100.5 degrees Fahrenheit, but is currently not febrile. The patient states her low blood pressure is unusual. The patient has been coughing and has a headache. She describes her discomfort as having a "heavy chest". She denies having any symptoms yesterday. The patient denies a history of pneumonia. She notes she has shingles in her left lower quadrant, that was diagnosed one week ago. She has a history of breast cancer. Pt denies LOC, diaphoresis, visual changes, neck pain, abdominal pain, back pain, melena, hematochezia, urinary symptoms, numbness, lymphadenopathy, or other complaints. Source of History: patient, spouse/significant other () Onset: 0600 Position: other (global) Quality: other (generalized weakness) Timing: other (persistent) Associated Symptoms: + fevers, + chills, + headache, + cough Review of Systems See HPI for pertinent positives and negatives. A total of ten systems were reviewed and were otherwise negative. Past Medical & Surgical Medical Problems: (1) Anxiety (2) Cerebrovascular disease (3) Depression (4) Fatty liver (5) GERD (gastroesophageal reflux disease) (6) History of bipolar disorder (7) History of breast cancer (8) History of TIA (transient ischemic attack) (9) Hyperlipidemia (10) Hypertension (11) Hypothyroidism (12) Lumbar stenosis with neurogenic claudication (13) Lymphedema Surgical Problems: (1) H/O colonoscopy (2) H/O cystoscopy (3) History of cataract surgery (4) History of cervical hemilaminectomy (5) History of left breast nipple exploration and ductal excision (6) History of lymph node dissection of left axilla (7) Status post lumbar surgery (8) Status post total left knee replacement Family History Diabetes mellitus FH: cancer Gallbladder disease Hypertension Social History Smoking Status: Never Smoker Alcohol Use: none Marital Status: Housing Status: lives with significant other Occupation Status: disabled Current/Historical Medications Scheduled Amlodipine (Norvasc), 5 MG PO QAM Artificial Tear Solution (Soothe Xp), 1 DROP OPB BID Ascorbic Acid (Vitamin C), 500 MG PO BID Aspirin Enteric Coated (Ecotrin Or Generic), 81 MG PO QAM Atenolol (Atenolol), 50 MG PO QAM Azelastine Hcl (Astelin Nasal [place]), 2 SPRAYS NA BID Calcium Carbonate-Vitamin D (Calcium), 1 TAB PO DAILY Cranberry (Vaccinium Macrocarp (Cranberry), 300 MG PO TID Cyanocobalamin (Vitamin B-12), 100 MCG PO DAILY Fluticasone Propionate (Nasal) (Flonase Allergy Relief), 2 SPRAYS ALLI AMPM Furosemide (Lasix), 20 MG PO QAM Gabapentin (Neurontin), 300 MG PO TID Lamotrigine (Lamictal), 150 MG PO AMPM Levothyroxine Sodium (Levothyroxine Sodium), 125 MCG PO QAM [place] Carbonate Ext Rel (Lithobid Ext Rel), 450 MG PO QPM Losartan Potassium (Cozaar), 100 MG PO QAM Multivitamin (Multivitamin), 1 TAB PO QPM Lmmvyhsc-Ckuxfkiku-Sg (Otic) (Neomycin/Polymyxin/Hc), 1 DROPS OTB 2XWK Omeprazole (Prilosec), 20 MG PO BID Pravastatin Sodium (Pravastatin Sodium), 80 MG PO HS Probiotic Product (Probiotic), 1 TAB PO BID Ranitidine (Zantac), 300 MG PO HS Trazodone Hcl (Trazodone), 200 MG PO HS Scheduled PRN Dicyclomine Hcl (Bentyl), 20 MG PO QID PRN for abdominal cramping Lorazepam (Ativan), 0.5-1 MG PO Q6H PRN for Anxiety/Agitation Meclizine Hcl (Meclizine Hcl), 50 MG PO TID PRN for Nausea Ondansetron Hcl (Zofran), 8 MG PO Q8 PRN for Nausea Promethazine Hcl (Phenergan), 25 MG PO Q6H PRN for Nausea Tramadol Hcl (Ultram), 50-100 MG PO TID PRN for Pain Allergies Coded Allergies: Baclofen (Verified Allergy, Severe, NEURO SYMPTOMS, 03/28/17) Ciprofloxacin (Verified Allergy, Severe, HIVES, 03/28/17) Morphine (Verified Allergy, Severe, DELIRIUM, 03/28/17) Metronidazole (Verified Allergy, Intermediate, hives, 03/28/17) Quinolones (Verified Allergy, Mild, CIPRO, 03/28/17) Sulfa Antibiotics (Verified Allergy, Unknown, HIVES, 03/28/17) Zolpidem (Verified Adverse Reaction, Mild, delusions, 03/28/17) HALLUCINATIONS Pantoprazole (Verified Adverse Reaction, Unknown, migraines, 03/28/17) Physical Exam Vital Signs Date Time Temp Pulse Resp B/P (MAP) Pulse Ox O2 Delivery O2 Flow Rate FiO2 03/29/17 02:11 65 03/29/17 00:55 70 18 120/60 92 Room Air 03/28/17 23:01 69 18 103/54 94 Room Air 03/28/17 23:01 95 Room Air 03/28/17 23:00 70 03/28/17 22:48 37.0 72 20 93/62 91 Room Air Physical Exam GENERAL: Awake, alert, dyspneic, in no distress HENT: Normocephalic, atraumatic. Oropharynx unremarkable. EYES: Normal conjunctiva. Sclera non-icteric. NECK: Supple. No nuchal rigidity. FROM. No JVD. RESPIRATORY: Congested with ronchi on right side. CARDIAC: Borderline tachycardic rate, normal rhythm. Extremities warm and well perfused. Pulses equal. ABDOMEN: Soft, non-distended. No tenderness to palpation. No rebound or guarding. No masses. RECTAL: Deferred. MUSCULOSKELETAL: Chest examination reveals no tenderness. The back is symmetrical on inspection without obvious abnormality. There is no CVA tenderness to palpation. No joint edema. Left upper extremity edema noted. Patient has a prior history of lymph node dissection in the left axilla. LOWER EXTREMITIES: Calves are equal size bilaterally and non-tender. No edema. No discoloration. NEURO: Normal sensorium. No sensory or motor deficits noted. SKIN: No rash or jaundice noted. Medical Decision & Procedures ER Provider Diagnostic Interpretation: Radiology results as stated below per my review and radiologist interpretation: CHEST ONE VIEW PORTABLE CLINICAL HISTORY: 71 years-old Female presenting with EVALUATE WEAKNESS. TECHNIQUE: Portable upright AP view of the chest was obtained. COMPARISON: 10/23/2015. FINDINGS: Cardiomediastinal silhouette normal. Diffuse hazy pulmonary opacity in the right lung with bronchial wall thickening. No large pleural effusion or pneumothorax. Left lung and pleural space clear. Left axillary surgical clips noted. Degenerative changes of the glenohumeral joints and spine. Partially visualized cervical fusion hardware. Partially visualized lumbar fusion hardware. Upper abdomen normal. IMPRESSION: 1. Hazy pulmonary opacity in the right lung concerning for pneumonia. Electronically signed by: Josué Cardenas M.D. 03/28/2017 11:[address] PE study: Lobar infiltrates involving the right lower lobe. No pulmonary embolus or aortic dissection seen. There is right hilar and mediastinal reactive adenopathy. No other acute disease noted per stat rad. Laboratory Results 03/28/17 23:20 Red Blood Count 4.40, Mean Corpuscular Volume 86.8, Mean Corpuscular Hemoglobin 29.8, Mean Corpuscular Hemoglobin Concent 34.3, Mean Platelet Volume 8.8, Neutrophils (%) (Auto) 81.1, Lymphocytes (%) (Auto) 11.2, Monocytes (%) (Auto) 7.2, Eosinophils (%) (Auto) 0.1, Basophils (%) (Auto) 0.1, Neutrophils # (Auto) 7.65, Lymphocytes # (Auto) 1.06, Monocytes # (Auto) 0.68, Eosinophils # (Auto) 0.01, Basophils # (Auto) 0.01 03/28/17 23:20 Test 03/28/17 23:20 03/28/17 23:40 03/29/17 02:08 White Blood Count 9.44 K/uL (4.8-10.8) Red Blood Count 4.40 M/uL (4.2-5.4) Hemoglobin 13.1 g/dL (12.0-16.0) Hematocrit 38.2 % (37-47) Mean Corpuscular Volume 86.8 fL (80-100) Mean Corpuscular Hemoglobin 29.8 pg (25-34) Mean Corpuscular Hemoglobin Concent 34.3 g/dl (32-36) Platelet Count 192 K/uL (130-400) Mean Platelet Volume 8.8 fL (7.4-10.4) Neutrophils (%) (Auto) 81.1 % Lymphocytes (%) (Auto) 11.2 % Monocytes (%) (Auto) 7.2 % Eosinophils (%) (Auto) 0.1 % Basophils (%) (Auto) 0.1 % Neutrophils # (Auto) 7.65 K/uL (1.4-6.5) Lymphocytes # (Auto) 1.06 K/uL (1.2-3.4) Monocytes # (Auto) 0.68 K/uL (0.11-0.59) Eosinophils # (Auto) 0.01 K/uL (0-0.5) Basophils # (Auto) 0.01 K/uL (0-0.2) RDW Standard Deviation 47.6 fL (36.4-46.3) RDW Coefficient of Variation 14.9 % (11.5-14.5) Immature Granulocyte % (Auto) 0.3 % Immature Granulocyte # (Auto) 0.03 K/uL (0.00-0.02) Prothrombin Time 11.2 SECONDS (9.0-12.0) Prothromb Time International Ratio 1.1 (0.9-1.1) Activated Partial Thromboplast Time 30.5 SECONDS (21.0-31.0) Partial Thromboplastin Ratio 1.2 Anion Gap 8.0 mmol/L (3-11) Estimated GFR () 38.9 Estimated GFR (Non- 33.6 BUN/Creatinine Ratio 12.2 (10-20) Calcium Level 9.1 mg/dl (8.5-10.1) Magnesium Level 1.6 mg/dl (1.8-2.4) Total Bilirubin 0.6 mg/dl (0.2-1) Direct Bilirubin 0.2 mg/dl (0-0.2) Aspartate Amino Transf (AST/SGOT) 13 U/L (15-37) Alanine Aminotransferase (ALT/SGPT) 18 U/L (12-78) Alkaline Phosphatase 65 U/L (45-117) Total Creatine Kinase 30 U/L (26-192) Creatine Kinase MB < 0.5 ng/ml (0.5-3.6) Creatine Kinase MB Ratio (0-3.0) Troponin I < 0.015 ng/ml (0-0.045) Total Protein 6.6 gm/dl (6.4-8.2) Albumin 3.4 gm/dl (3.4-5.0) Lipase 83 U/L (73-393) Thyroid Stimulating Hormone (TSH) 0.275 uIu/ml (0.300-4.500) Influenza Type A Antigen Neg for Influ A (NEG) Influenza Type B Antigen Neg for Influ B (NEG) Laboratory results reviewed by me Medications Administered Medications (Trade) Dose Ordered Sig/Chava Route Start Time Stop Time Status Last Admin Dose Admin Sodium Chloride 1,000 ml @ 125 mls/hr Q8H STAT IV 03/28/17 22:57 03/29/17 06:56 03/28/17 23:37 125 MLS/HR Sodium Chloride 500 ml @ 999 mls/hr Q31M STAT IV 03/28/17 22:57 03/28/17 23:27 DC 03/28/17 22:57 999 MLS/HR Ondansetron HCl (Zofran Inj) 4 mg NOW STAT IV 03/28/17 22:57 03/28/17 22:59 DC 03/28/17 23:37 4 MG Ceftriaxone Sodium (Rocephin Inj) 1 gm NOW STAT IV 03/29/17 00:06 03/29/17 00:07 DC 03/29/17 00:06 1 GM Magnesium Sulfate (Magnesium Sulfate) 2 gm NOW STAT IV 03/29/17 00:31 03/29/17 00:32 DC 03/29/17 00:54 2 GM Sodium Chloride 500 ml @ 999 mls/hr Q31M STAT IV 03/29/17 00:32 03/29/17 01:02 DC 03/29/17 00:32 999 MLS/HR ECG Indication: weakness Rate (beats per minute): 66 Rhythm: normal sinus Findings: nonspecific-ST abn, no acute ischemic change, prolonged QT ED Course 2255: The patient was evaluated in room B3. A complete history and physical exam was performed. 2257: Ordered Sodium Chloride 1000ml @ 125mls/hr IV, Sodium Chloride 500ml @ 999mls/hr IV, and Zofran Inj 4mg IV. 0006: Ordered Rocephin Inj `gm IV. 0010: I reevaluated the patient, who was still weak and tired. I discussed the test findings with the patient and her . The patient's would like her to stay in the hospital. 0031: Ordered Magnesium Sulfate 2gm IV. 0032: Ordered Sodium Chloride 500ml @ 999mls/hr IV. 0033: I reevaluated the patient and she is still feeling weak. I updated her on the imaging results. 0045: Ordered Ioversol 100ml IV. 0120: Ordered Doxycycline Hyclate 100mg/Dextrose 110ml @ 50mls/hr IV. 0120: Discussed the patient's case with KYLE Hendrickson. The patient will be evaluated for further treatment and disposition. Medical Decision Prior records/ancillary studies reviewed. Triage Nursing notes reviewed and agree them. Additional history obtained from the family. The patient's history was concerning for vomiting, weakness, and shortness of breath. Differential diagnosis: Etiologies such as pneumonia, COPD, reactive airway disease, CHF, cardiac ischemia, pulmonary embolism, pneumothorax, musculoskeletal, infections, gastrointestinal, as well as others were entertained. Physical examination: As above. The patient was very weak appearing and quite fatigued. Her initial blood pressure was concerning. ER treatment provided: IV normal saline hydration IV magnesium IV Rocephin IV doxycycline On reassessment the patient was stable. Diagnostic interpretation by me: The electrocardiogram was negative for pathologic change. The labs revealed an unremarkable CBC. Chemistry panel was concerning for dehydration. Her magnesium was mildly low. Her creatinine had bumped from 0.9- 1.56. TSH was mildly low. Cardiac markers unremarkable. Imaging studies: Chest x-ray and CT scan as above. The patient has multilobar pneumonia. She is weak. She was vomiting and is dehydrated. is very concerned about her going home. She had a prolonged QT on ECG and therefore based upon that and her other allergies she was treated with Rocephin and doxycycline. Consultation: A consultation was placed with the hospitalist. The case was discussed and diagnostics were reviewed. The patient was evaluated in the ER for further treatment. Medication Reconcilliation Current Medication List: was personally reviewed by me Blood Pressure Screening Patient's blood pressure: Normal blood pressure Consults Time Called: 011 Consulting Physician: KYLE Thompson Returned Call: 012 Discussed the patient's case with Dr. Quijano [facility]. The patient will be evaluated for further treatment and disposition. Impression Primary Impression: Pneumonia Additional Impressions: Vomiting Weakness Scribe Attestation The scribe's documentation has been prepared under my direction and personally reviewed by me in its entirety. I confirm that the note above accurately reflects all work, treatment, procedures, and medical decision making performed by me. Departure Information Dispostion Being Evaluated By Hospitalist Referrals Tonie Rendon M.D. (PCP) Forms HOME CARE DOCUMENTATION FORM, IMPORTANT VISIT INFORMATION Patient Instructions [facility] Health Problem Qualifiers
[2017-03-29 02:58] LABS: URINE APPEARANCE CLEAR (CLEAR); URINE BILIRUBIN NEG (NEG); URINE COLOR YELLOW; URINE NITRITE NEG (NEG); URINE PH 6.5 (4.5-7.5); URINE SPECIFIC GRAVITY 1.021 (1.000-1.030); UROBILINOGEN NEG (NEG)
[2017-03-29 03:00] LABS: MANUAL MICROSCOPIC REQUIRED? NO; REVIEW REQ? YES
[2017-03-29 03:07] LABS: URINE EPITHELIAL CELL AUTO 0-5 /lpf (0-5)
[2017-03-29] MEDS ORDERED: LORAZEPAM 0.5 MG TAB PO PRN (04:00)
[2017-03-29] MEDS ORDERED: DICYCLOMINE HCL 20 MG TAB PO PRN (04:00)
[2017-03-29] MEDS ORDERED: PROCHLORPERAZINE INJ 5 MG in SYRINGE 4 ML IV PRN (04:00)
[2017-03-29] MEDS ORDERED: LAMOTRIGINE 150 MG PO SCH (04:00)
[2017-03-29] MEDS ORDERED: HYDROmorphone INJ 0.5 MG/0.5 ML SYR IV PRN (04:00)
[2017-03-29] MEDS ORDERED: GUAIFENESIN 600 MG TABCR PO ONE (04:27)
[2017-03-29] MEDS ORDERED: ALBUT/IPRATROP 3MG/0.5MG NEB 3 ML VIAL INH PRN (04:30)
[2017-03-29] MEDS ORDERED: ALBUT/IPRATROP 3MG/0.5MG NEB 3 ML VIAL INH STA (04:42)
[2017-03-29] MEDS ORDERED: AMPICILLIN/SULBACTAM CONSULT ACTIVE PRN ×2 (04:45)
[2017-03-29 05:11] LABS: COMPLETE YES; HEMATOCRIT 34.3 % (37-47); IG% 0.2 %; LYMPH % 11.4 %; LYMPH ABS # 0.94 K/uL (1.2-3.4); MEAN CELL VOLUME 87.7 fL (80-100); MEAN CORPUSCULAR HEMOGLOBIN 29.4 pg (25-34); MEAN CORPUSCULAR HGB CONC 33.5 g/dl (32-36); MEAN PLATELET VOLUME 8.6 fL (7.4-10.4); MONO % 5.6 %; NEUT % 82.8 %; PLATELET COUNT 186 K/uL (130-400); RED BLOOD COUNT 3.91 M/uL (4.2-5.4); WHITE BLOOD COUNT 8.24 K/uL (4.8-10.8)
[2017-03-29 05:28] LABS: BUN/CREATININE RATIO 14.3 (10-20); CALCIUM 8.6 mg/dl (8.5-10.1); CREATININE 1.27 mg/dl (0.60-1.20); MAGNESIUM 2.4 mg/dl (1.8-2.4); POTASSIUM 3.7 mmol/L (3.5-5.1)
[2017-03-29] MEDS: HEPARIN SOD 5000 UNIT/0.5 ML CARP SQ SCH ×3 (06:02→21:11)
[2017-03-29] MEDS: LEVOTHYROXINE 125 MCG TAB PO SCH (06:06)
--- NOTE | 2017-03-29 06:34 | DIAGNOSTIC IMAGING REPORT ---
CT HEAD WITHOUT CONTRAST (CT) CLINICAL HISTORY: Headache, nausea, vomiting. COMPARISON STUDY: 05/24/2014 TECHNIQUE: Axial CT of the brain is performed from the vertex to the skull base. IV contrast was not administered for this examination. A dose lowering technique was utilized adhering to the principles of ALARA. CT DOSE: 537.48 mGy.cm FINDINGS: No intra or extra-axial mass lesions are visualized. There is no CT evidence of acute cortical infarction. There is no evidence of midline shift. There is no acute hemorrhage. No calvarial fractures are visualized. There are patchy white matter hypodensities likely on a small vessel basis. There is an old lacunar infarct within the right cerebellar hemisphere. There is no evidence of pathologic ventricular dilatation. There is no evidence of acute sinusitis Increased vascular density is felt to be secondary to contrast administered from a preceding CT angiogram of the chest IMPRESSION: No acute intracranial findings Electronically signed by: Oliverio Marmolejo M.D. 03/29/2017 6:33 AM Dictated Date/Time: 03/29/2017 6:31 AM
--- NOTE | 2017-03-29 06:53 | DIAGNOSTIC IMAGING REPORT ---
(CHEST FOR PE) ANGIO WITH CT DOSE: 437.44 mGy.cm HISTORY: 71 years-old Female presents with acute shortness of breath and history of lung cancer. TECHNIQUE: Multiple CTA images of the chest were obtained after the intravenous administration of 88 ml Optiray 320. Coronal and sagittal MIPS were obtained from the axial data set and were submitted for review. A dose lowering technique was utilized adhering to the principles of ALARA. COMPARISON: Chest radiograph 03/28/2017, CTA of the chest 02/04/2013, PET CT 09/06/2013. FINDINGS: CTA: Heart is mildly enlarged without pericardial effusion. Coronary arterial calcifications are noted. Thoracic aorta is normal in both course and caliber without dissection or aneurysm. Note is made of a bovine aortic arch. There is mild atherosclerotic plaquing of the aortic arch with patency of the imaged great vessels. The pulmonary arterial tree is opacified to level of the proximal subsegmental branches and demonstrates no focal filling defects to suggest pulmonary thromboembolic disease. CT CHEST: Homogeneous thyroid. Postoperative changes from prior left axillary rajiv dissection. Biopsy clip and calcifications noted within the left breast. Mildly prominent mediastinal and hilar lymph nodes are present with a right paratracheal lymph node measuring 9 mm on image 177 series 4. Right hilar lymph node measures 7 mm on image 169 series 4. 8 mm lymph node is seen in the left hilum on image 151 series 4. No pneumothorax or pleural effusion. Minimal dependent groundglass opacities suggest atelectasis. Additionally, there are multifocal consolidative and patchy groundglass opacities throughout the right upper, lower and middle lobes predominantly within a peripheral distribution. Mild intralobular septal thickening also noted within these distributions. Largest area of consolidation is within the basal right lower lobe, 4.7 x 3.1 cm on image 60 series 4. Mild splenic likely, 14.5 cm. No acute amount the of the imaged upper abdomen identified. Soft tissues are unremarkable. Postoperative changes of the lower cervical spine partially imaged. Partially imaged fusion hardware of the thoracolumbar spine. Multilevel endplate spurring and facet arthrosis. Degenerative changes are also noted within the sternoclavicular joints. IMPRESSION: 1. No acute aortic pathology or evidence of pulmonary thromboembolic disease. 2. Multifocal consolidative and patchy groundglass opacities throughout the right upper, lower and middle lobes suggests pneumonia. Follow-up imaging to document resolution is recommended. 3. Mildly prominent mediastinal and hilar adenopathy is likely reactive. 4. Postoperative changes from prior left axillary rajiv dissection. 5. Mild splenomegaly. The above report was generated using voice recognition software. It may contain grammatical, syntax or spelling errors. Electronically signed by: Ho Carroll M.D. 03/29/2017 6:52 AM Dictated Date/Time: 03/29/2017 6:44 AM
[2017-03-29] MEDS: ASTELIN - ORDER AWAITING ACTION SCH ×2 (07:33→15:30)
[2017-03-29] MEDS: ASPIRIN 81 MG ECTAB PO SCH (07:36)
[2017-03-29] MEDS: LAMOTRIGINE PO SCH ×4 (07:36→21:04)
[2017-03-29] MEDS: GABAPENTIN 300 MG CAP PO SCH ×3 (07:36→21:03)
[2017-03-29] MEDS: LACTOBACILLUS ACIDOPHILUS (FLORANEX) TAB PO SCH ×2 (07:36→21:02)
[2017-03-29] MEDS: AMLODIPINE BESYLATE 5 MG TAB PO SCH (07:37)
[2017-03-29] MEDS: ARTIFICIAL TEARS OP SOLN OPB SCH ×4 (07:37→21:11)
[2017-03-29 07:46] LABS: INFLUENZA A PCR Neg for Influ A (NEG); INFLUENZA B PCR Neg for Influ B (NEG)
[2017-03-29] MEDS ORDERED: NEOMYCIN/POLYMYX/HYDROCORT OT SOLN 10 ML BTL OTB SCH (09:00)
--- NOTE | 2017-03-29 09:01 | HISTORY & PHYSICAL EXAMINATION ---
DATE OF ADMISSION: 03/29/2017 PRIMARY CARE PHYSICIAN: Tonie Rendon MD. CHIEF COMPLAINT: Cough, weakness. HISTORY OF PRESENT ILLNESS: History obtained from patient and records. Medical history significant for hypertension, history of CVA, reflux, mood disorder, breast cancer L status post surgery, radiation, chemotherapy. Recent confinement November 2016 for cellulitis. Yesterday morning, patient woke up feeling cold, temperature 100.4. Patient felt dizzy sleeping most of the day as per , not making sense subsequently noted achy headache, nausea, vomiting symptoms, cough symptoms, unable to expectorate. Chest x-ray at the ER showed pneumonia on the right. Patient given ceftriaxone in the ER. MEDICAL HISTORY: As above. Seen at PCP's office last week for a rash of a week duration. Noted to have shingles on the left flank. Prescribed pain medicine. Pain controlled as long as rash not touched as per patient. SURGERIES: Neck surgery, cataract surgery, breast surgery, back surgery, knee replacement. HOME MEDICATIONS: Include artificial tears, Norvasc, vitamin C, aspirin, atenolol, calcium, cranberry, vitamin B12, Bentyl, Lasix, Flonase, gabapentin, Lamictal, levothyroxine, Ativan, Cozaar, lithium, meclizine, multivitamins, neomycin, Prilosec, Zofran, pravastatin, probiotics, Phenergan. ALLERGIES: ZANTAC, ULTRAM, TRAZODONE. ALLERGIC TO BACLOFEN, FLAGYL, MORPHINE, CIPRO, ZOLPIDEM, PROTONIX, QUINOLONE, SULFA. FAMILY HISTORY: Diabetes, high blood pressure. PERSONAL AND SOCIAL HISTORY: Nonsmoker, no chronic intake of alcoholic beverages. Lives with . REVIEW OF SYSTEMS: As per HPI. All 10 systems reviewed. All other ROS negative. PHYSICAL EXAMINATION: VITAL SIGNS: Blood pressure was noted to be initially 93/62 later 103/54, pulse 69, RR 20, temperature 37, sats 91 on room air. GENERAL: Noted to be slightly uncomfortable, obese . SKIN: Warm, normal color. Dried crusty rash on the left flank, no active vesicles noted, hyperesthetic. HEENT: [place] palpebral conjunctiva. No ptosis. Dry buccal mucosa. NECK: Short. No tenderness. CHEST: Decreased breath sounds. No tenderness. HEART: Regular rate and rhythm. No murmur. ABDOMEN: Soft, some distension, nontender. EXTREMITIES: Minimal LUE swelling (chronic), no tenderness. No LE swelling. No tenderness. No gross deformities except for LUE lymphedema. NEUROLOGIC: Sleepy but coherent. No facial asymmetry. No other gross focality. Gait and stance not assessed. LABORATORY DATA: Hemoglobin was noted to be 13.1, hematocrit 38.2, white blood cell count 9.4, platelets noted to be 192. Sodium 136, potassium 3.6, chloride 99, CO2 25, BUN 19, creatinine 1.5, glucose was noted to be 91. CTA showed no PE, multifocal consolidative ground glass opacities, right upper, lower, middle lobes pneumonia, mildly prominent mediastinal and hilar adenopathy, mild splenomegaly. CT head: Old lacunar infarct. ASSESSMENT: 1. Aspiration pneumonia secondary to GI upset, no sepsis. 2. Hypertension. Blood pressure on the lower side. 3. Acute renal failure secondary to illness. 4. Recent history herpes zoster, pain controlled on home narcotic prescribed by PCP. 5. History of cerebrovascular accident as per records. 6. Breast cancer, left, status post surgery, radiation and chemotherapy. 7. Mood disorder, stable. PLAN: F Unasyn for aspiration. monitor creatinine response to IV fluids Hold home ARB, diuretics until creatinine at baseline. PT, OT eval. DVT prophylaxis, Heparin subQ. Full code. MTDD
[2017-03-29] MEDS: AMPICILLIN/SULBACTAM SOD INJ 3,000 MG in SODIUM CHLORIDE 0.9% 100ML 100 ML IV SCH ×3 (09:57→22:07)
[2017-03-29] MEDS: D5NSS + 20MEQ KCL 1,000 ML IV SCH ×2 (12:57→22:11)
[2017-03-29] MEDS: ACETAMINOPHEN 325 MG TAB PO PRN (15:34)
--- NOTE | 2017-03-29 17:55 | Progress Note ---
Internal Med Progress Note Date of Service: Mar 29, 2017. Provider Documentation: SUBJECTIVE: The patient was seen and examined Admitted with cough and generalized weakness Noted to have right sided Multilobar Pneumonia Feels a little better this morning OBJECTIVE: Vital Signs-as noted below Exam: General-Anxious No apparent distress normal Eyes-normal ENT-Normal Neck-supple Lungs-decreased breath sound mostly on right with occasional crackles Heart-Regular,no0 murmur appreciated Abdomen-Benign,no masses,bowel sound present Extremities-NO edema Neuro-AAOx3 No focaml neuro deficit Lab data as noted below. ASSESSMENT & PLAN: Right Sided Multilobar Pneumonia Likely secondary to Aspiration pneumonia secondary to GI upset, No sepsis. CTA::1. No acute aortic pathology or evidence of pulmonary thromboembolic disease. 2. Multifocal consolidative and patchy groundglass opacities throughout the right upper, lower and middle lobes suggests pneumonia. Follow-up imaging to document resolution is recommended. 3. Mildly prominent mediastinal and hilar adenopathy is likely reactive. 4. Postoperative changes from prior left axillary rajiv dissection. 5. Mild splenomegaly. Recent CT evidence of small clusters of Ground-glass nodules in right Upper Lobe but PET scan is negative for any metastatic disease Started on IV Unasyn Clinically better today If any Deterioration will need pulmonary evaluation Generalized Weakness Multifactorial Pneumonia,Viral illness,Shingles and the h/o Breast cancer as well Getting better Continue PT Hypertension. Blood pressure on the lower side. Acute renal failure secondary to illness. Will try IVF Creatinine is improving Monitor Recent history herpes zoster, pain controlled on home narcotic prescribed by PCP. Pain is controlled Not on any Narcotics History of cerebrovascular accident as per records. No acute issue Breast cancer, left, status post surgery, radiation and chemotherapy. Mood disorder, stable. -Remains stable DVT prophylaxis, Heparin subQ. Full code. Discussed with the Vital Signs: Date Time Temp Pulse Resp B/P (MAP) Pulse Ox O2 Delivery O2 Flow Rate FiO2 03/29/17 15:35 37.4 106 18 113/69 (84) 91 Room Air 03/29/17 11:39 91 03/29/17 08:00 Room Air 03/29/17 07:17 36.9 79 18 121/78 (92) 91 Room Air 03/29/17 06:18 70 16 91 Room Air 03/29/17 04:20 36.7 69 17 113/66 Room Air 03/29/17 04:10 65 18 111/67 92 03/29/17 02:40 69 18 126/62 92 Room Air 03/29/17 02:11 65 03/29/17 00:55 70 18 120/60 92 Room Air 03/28/17 23:01 69 18 103/54 94 Room Air 03/28/17 23:01 95 Room Air 03/28/17 23:00 70 03/28/17 22:48 37.0 72 20 93/62 91 Room Air Lab Results: Results Past 24 Hours Test 03/28/17 23:20 03/28/17 23:23 03/28/17 23:40 03/29/17 02:35 Range/Units White Blood Count 9.44 4.8-10.8 K/uL Red Blood Count 4.40 4.2-5.4 M/uL Hemoglobin 13.1 12.0-16.0 g/dL Hematocrit 38.2 37-47 % Mean Corpuscular Volume 86.8 80-100 fL Mean Corpuscular Hemoglobin 29.8 25-34 pg Mean Corpuscular Hemoglobin Concent 34.3 32-36 g/dl Platelet Count 192 130-400 K/uL Mean Platelet Volume 8.8 7.4-10.4 fL Neutrophils (%) (Auto) 81.1 % Lymphocytes (%) (Auto) 11.2 % Monocytes (%) (Auto) 7.2 % Eosinophils (%) (Auto) 0.1 % Basophils (%) (Auto) 0.1 % Neutrophils # (Auto) 7.65 1.4-6.5 K/uL Lymphocytes # (Auto) 1.06 1.2-3.4 K/uL Monocytes # (Auto) 0.68 0.11-0.59 K/uL Eosinophils # (Auto) 0.01 0-0.5 K/uL Basophils # (Auto) 0.01 0-0.2 K/uL RDW Standard Deviation 47.6 36.4-46.3 fL RDW Coefficient of Variation 14.9 11.5-14.5 % Immature Granulocyte % (Auto) 0.3 % Immature Granulocyte # (Auto) 0.03 0.00-0.02 K/uL Prothrombin Time 11.2 9.0-12.0 SECONDS Prothromb Time International Ratio 1.1 0.9-1.1 Activated Partial Thromboplast Time 30.5 21.0-31.0 SECONDS Partial Thromboplastin Ratio 1.2 Sodium Level 133 136-145 mmol/L Potassium Level 3.6 3.5-5.1 mmol/L Chloride Level 99 98-107 mmol/L Carbon Dioxide Level 25 21-32 mmol/L Anion Gap 8.0 3-11 mmol/L Blood Urea Nitrogen 19 7-18 mg/dl Creatinine 1.56 0.60-1.20 mg/dl Estimated GFR () 38.9 Estimated GFR (Non- 33.6 BUN/Creatinine Ratio 12.2 10-20 Random Glucose 91 70-99 mg/dl Calcium Level 9.1 8.5-10.1 mg/dl Magnesium Level 1.6 1.8-2.4 mg/dl Total Bilirubin 0.6 0.2-1 mg/dl Direct Bilirubin 0.2 0-0.2 mg/dl Aspartate Amino Transf (AST/SGOT) 13 15-37 U/L Alanine Aminotransferase (ALT/SGPT) 18 12-78 U/L Alkaline Phosphatase 65 45-117 U/L Total Creatine Kinase 30 26-192 U/L Creatine Kinase MB < 0.5 0.5-3.6 ng/ml Creatine Kinase MB Ratio 0-3.0 Troponin I < 0.015 0-0.045 ng/ml Total Protein 6.6 6.4-8.2 gm/dl Albumin 3.4 3.4-5.0 gm/dl Lipase 83 73-393 U/L Thyroid Stimulating Hormone (TSH) 0.275 0.300-4.500 uIu/ml Free Thyroxine 1.39 0.80-1.60 ng/dl Total Triiodothyronine 0.73 0.60-1.81 ng/ml Hepatitis C Antibody Screen NEG NEG Influenza Type A Antigen Neg for Influ A NEG Influenza Type B Antigen Neg for Influ B NEG Lactic Acid Level 1.3 0.4-2.0 mmol/L Test 03/29/17 04:50 03/29/17 06:30 03/29/17 16:32 Range/Units White Blood Count 8.24 4.8-10.8 K/uL Red Blood Count 3.91 4.2-5.4 M/uL Hemoglobin 11.5 12.0-16.0 g/dL Hematocrit 34.3 37-47 % Mean Corpuscular Volume 87.7 80-100 fL Mean Corpuscular Hemoglobin 29.4 25-34 pg Mean Corpuscular Hemoglobin Concent 33.5 32-36 g/dl Platelet Count 186 130-400 K/uL Mean Platelet Volume 8.6 7.4-10.4 fL Neutrophils (%) (Auto) 82.8 % Lymphocytes (%) (Auto) 11.4 % Monocytes (%) (Auto) 5.6 % Eosinophils (%) (Auto) 0.0 % Basophils (%) (Auto) 0.0 % Neutrophils # (Auto) 6.82 1.4-6.5 K/uL Lymphocytes # (Auto) 0.94 1.2-3.4 K/uL Monocytes # (Auto) 0.46 0.11-0.59 K/uL Eosinophils # (Auto) 0.00 0-0.5 K/uL Basophils # (Auto) 0.00 0-0.2 K/uL RDW Standard Deviation 48.2 36.4-46.3 fL RDW Coefficient of Variation 15.0 11.5-14.5 % Immature Granulocyte % (Auto) 0.2 % Immature Granulocyte # (Auto) 0.02 0.00-0.02 K/uL Sodium Level 134 136-145 mmol/L Potassium Level 3.7 3.5-5.1 mmol/L Chloride Level 104 98-107 mmol/L Carbon Dioxide Level 26 21-32 mmol/L Anion Gap 4.0 3-11 mmol/L Blood Urea Nitrogen 18 7-18 mg/dl Creatinine 1.27 0.60-1.20 mg/dl Est Creatinine Clear Calc Drug Dose 48.0 ml/min Estimated GFR () 49.9 Estimated GFR (Non- 43.0 BUN/Creatinine Ratio 14.3 10-20 Random Glucose 96 70-99 mg/dl Calcium Level 8.6 8.5-10.1 mg/dl Magnesium Level 2.4 1.8-2.4 mg/dl [place] Level 1.3 0.6-1.2 mMOL/L Influenza Type A (RT-PCR) Neg for Influ A NEG Influenza Type B (RT-PCR) Neg for Influ B NEG Troponin I < 0.015 0-0.045 ng/ml Microbiology Results 03/28/17 Blood Culture, Received Pending 03/28/17 Blood Culture, Received Pending
[2017-03-29] MEDS ORDERED: PILO5TAB10 PO (18:58)
[2017-03-29] MEDS ORDERED: CLB/200 PO (18:59)
[2017-03-29] MEDS: DICLOFENAC SOD 1% GEL 100 GM TUBE EXT SCH (21:00)
[2017-03-29] MEDS: RANITIDINE HCL 150 MG TAB PO SCH (21:02)
[2017-03-29] MEDS: MULTIVITAMIN TAB PO SCH (21:02)
[2017-03-29] MEDS: TRAZODONE HCL 100 MG TAB PO SCH (21:02)
[2017-03-29] MEDS: GUAIFENESIN 600 MG TABCR PO SCH (21:02)
[2017-03-29] MEDS: PRAVASTATIN SOD 40 MG TAB PO SCH (21:03)
[2017-03-30 00:02] VITALS: BP 124/71; PULSE 81; TEMP 37.3; O2SAT 98
[2017-03-30] MEDS: AMPICILLIN/SULBACTAM SOD INJ 3,000 MG in SODIUM CHLORIDE 0.9% 100ML 100 ML IV SCH ×4 (03:54→22:01)
[2017-03-30] MEDS: ACETAMINOPHEN 325 MG TAB PO PRN (04:03)
[2017-03-30 05:35] VITALS: BP 125/74; PULSE 79; TEMP 36.9; O2SAT 93
[2017-03-30] MEDS: LEVOTHYROXINE 125 MCG TAB PO SCH (05:40)
[2017-03-30] MEDS: HEPARIN SOD 5000 UNIT/0.5 ML CARP SQ SCH ×3 (05:42→22:02)
[2017-03-30] MEDS ORDERED: NURSING VERBAL MED ORDER ONE (06:30)
[2017-03-30] MEDS ORDERED: COUGH DROP (SUGAR FREE) LOZ 24 LOZ/1 BOX PO PRN (06:30)
[2017-03-30 07:26] VITALS: BP 105/67; PULSE 69; TEMP 36.9; O2SAT 93
[2017-03-30 07:34] LABS: CREATININE 0.8 mg/dl (0.60-1.20); MAGNESIUM 1.8 mg/dl (1.8-2.4); PHOSPHORUS 2.7 mg/dl (2.5-4.9); POTASSIUM 3.7 mmol/L (3.5-5.1)
[2017-03-30] MEDS: ASTELIN - ORDER AWAITING ACTION SCH ×3 (07:51→16:00)
[2017-03-30] MEDS: ASPIRIN 81 MG ECTAB PO SCH (07:53)
[2017-03-30] MEDS: GABAPENTIN 300 MG CAP PO SCH ×3 (07:53→21:10)
[2017-03-30] MEDS: LACTOBACILLUS ACIDOPHILUS (FLORANEX) TAB PO SCH ×2 (07:53→21:11)
[2017-03-30] MEDS: AMLODIPINE BESYLATE 5 MG TAB PO SCH (07:53)
[2017-03-30] MEDS: GUAIFENESIN 600 MG TABCR PO SCH ×2 (07:53→21:10)
[2017-03-30] MEDS: LAMOTRIGINE PO SCH ×4 (07:54→21:13)
[2017-03-30] MEDS: ARTIFICIAL TEARS OP SOLN OPB SCH ×4 (07:54→21:10)
[2017-03-30] MEDS: DICLOFENAC SOD 1% GEL 100 GM TUBE EXT SCH ×2 (07:55→21:00)
[2017-03-30] MEDS: D5NSS + 20MEQ KCL 1,000 ML IV SCH ×2 (07:58→19:45)
[2017-03-30 10:17] VITALS: O2SAT 98
--- NOTE | 2017-03-30 13:07 | Progress Note ---
Internal Med Progress Note Date of Service: Mar 30, 2017. Provider Documentation: SUBJECTIVE: Seen and examined at bedside Persistent cough Dizziness, weakness improving Denies chest pain, SOB Family at bedside No other complaints OBJECTIVE: Vital Signs-as noted below Physical Exam: General Appearance:Moderately built and nourished, no apparent distress Head: normocephalic, Atraumatic Eyes: normal inspection, EOMI, PERRL Neck: supple, Trachea midline Respiratory/Chest: Normal breath sounds, CTA Cardiovascular: S1, S2, No murmur Abdomen/GI:Soft, Non tender, Bowel sounds present Extremities/Musculoskelatal:normal inspection, no edema Neurologic/Psych:AAOX3, grossly no focal neurological deficits Skin: normal color, warm Lab data as noted below. ASSESSMENT & PLAN: Right Sided Multilobar Pneumonia Likely secondary to Aspiration pneumonia secondary to GI upset No signs of sepsis CTA: No PE, Multifocal consolidative and patchy groundglass opacities throughout the right upper, lower and middle lobes suggests pneumonia. Recent outpatient CT evidence of small clusters of Ground-glass nodules in right Upper Lobe but PET scan is negative for any metastatic disease Continue IV Unasyn May need pulmonary evaluation if clinically deteriorates Decrease IV fluids Aspiration precautions Blood Cultures: No growth to date Generalized Weakness Multifactorial Pneumonia,Viral illness,Shingles and the h/o Breast cancer as well Improving Continue PT/OT Hypertension. Blood pressure on the lower side. monitor Acute renal failure secondary to illness. Cr back to baseline monitor renal function Recent history herpes zoster, pain controlled on home narcotic prescribed by PCP. Pain is controlled Not on any Narcotics History of cerebrovascular accident as per records. No acute issue Breast cancer, left, status post surgery, radiation and chemotherapy. Mood disorder Stable Planned to follow up with as outpatient (Previously seen ) DVT Px: Heparin SQ. Code Status: Full code. PROCEDURES: Speech Eval: Continuation of current diet regular with thins 2.Safe swallow strategies (small bites, small sips, slow rate) 3.Out patient speech therapy after discharge to address ongoing cognitive and expressive deficits. Vital Signs: Date Time Temp Pulse Resp B/P (MAP) Pulse Ox O2 Delivery O2 Flow Rate FiO2 03/30/17 10:17 98 03/30/17 08:00 Room Air 03/30/17 07:26 36.9 69 16 105/67 (80) 93 Room Air 03/30/17 05:35 36.9 79 125/74 (91) 93 Nasal Cannula 2.0 03/30/17 00:02 37.3 81 20 124/71 (88) 98 2.0 03/29/17 23:30 97 Nasal Cannula 1.0 03/29/17 19:00 91 Nasal Cannula 2.0 03/29/17 16:00 Nasal Cannula 2.0 03/29/17 15:35 37.4 106 18 113/69 (84) 91 Room Air Lab Results: Results Past 24 Hours Test 03/29/17 16:32 03/30/17 06:15 Range/Units Troponin I < 0.015 0-0.045 ng/ml Sodium Level 141 136-145 mmol/L Potassium Level 3.7 3.5-5.1 mmol/L Chloride Level 112 98-107 mmol/L Carbon Dioxide Level 24 21-32 mmol/L Anion Gap 5.0 3-11 mmol/L Blood Urea Nitrogen 7 7-18 mg/dl Creatinine 0.80 0.60-1.20 mg/dl Est Creatinine Clear Calc Drug Dose 76.2 ml/min Estimated GFR () 87.2 Estimated GFR (Non- 75.2 BUN/Creatinine Ratio 9.0 10-20 Random Glucose 107 70-99 mg/dl Calcium Level 8.0 8.5-10.1 mg/dl Phosphorus Level 2.7 2.5-4.9 mg/dl Magnesium Level 1.8 1.8-2.4 mg/dl Vitamin B12 Level 586 211-911 pg/mL Folate 20.27 >5.38 ng/mL
[2017-03-30 15:44] VITALS: BP 127/72; PULSE 75; TEMP 36.9; O2SAT 98
[2017-03-30] MEDS: TRAMADOL HCL 50 MG TAB PO PRN (15:46)
[2017-03-30] MEDS: TRAZODONE HCL 100 MG TAB PO SCH (21:10)
[2017-03-30] MEDS: MULTIVITAMIN TAB PO SCH (21:11)
[2017-03-30] MEDS: RANITIDINE HCL 150 MG TAB PO SCH (21:11)
[2017-03-30] MEDS: PRAVASTATIN SOD 40 MG TAB PO SCH (21:11)
[2017-03-30 23:34] VITALS: BP 148/79; PULSE 79; TEMP 37.2; O2SAT 92
[2017-03-31] MEDS: ACETAMINOPHEN 325 MG TAB PO PRN (00:53)
[2017-03-31 02:00] VITALS: O2SAT 94
[2017-03-31] MEDS: AMPICILLIN/SULBACTAM SOD INJ 3,000 MG in SODIUM CHLORIDE 0.9% 100ML 100 ML IV SCH ×4 (03:57→21:53)
[2017-03-31] MEDS: LEVOTHYROXINE 125 MCG TAB PO SCH (05:45)
[2017-03-31] MEDS: HEPARIN SOD 5000 UNIT/0.5 ML CARP SQ SCH ×3 (05:45→21:46)
[2017-03-31 07:38] VITALS: BP 167/91; PULSE 116; TEMP 36.6; O2SAT 93
[2017-03-31 07:39] LABS: BUN/CREATININE RATIO 5.2 (10-20); CALCIUM 8.8 mg/dl (8.5-10.1); CREATININE 0.75 mg/dl (0.60-1.20); MAGNESIUM 1.9 mg/dl (1.8-2.4); POTASSIUM 3.6 mmol/L (3.5-5.1)
[2017-03-31] MEDS: ASTELIN - ORDER AWAITING ACTION SCH ×3 (08:00→16:00)
[2017-03-31] MEDS: DICLOFENAC SOD 1% GEL 100 GM TUBE EXT SCH ×2 (08:06→21:00)
[2017-03-31] MEDS: LACTOBACILLUS ACIDOPHILUS (FLORANEX) TAB PO SCH ×2 (08:07→21:40)
[2017-03-31] MEDS: AMLODIPINE BESYLATE 5 MG TAB PO SCH (08:08)
[2017-03-31] MEDS: GABAPENTIN 300 MG CAP PO SCH ×3 (08:08→21:39)
[2017-03-31] MEDS: GUAIFENESIN 600 MG TABCR PO SCH ×2 (08:08→21:40)
[2017-03-31] MEDS: ARTIFICIAL TEARS OP SOLN OPB SCH ×4 (08:08→21:32)
[2017-03-31] MEDS: ASPIRIN 81 MG ECTAB PO SCH (08:08)
[2017-03-31] MEDS: LAMOTRIGINE PO SCH ×4 (08:39→21:35)
[2017-03-31] MEDS: TRAMADOL HCL 50 MG TAB PO PRN (10:15)
[2017-03-31 15:05] VITALS: BP 137/78; PULSE 72; TEMP 36.9; O2SAT 96
--- NOTE | 2017-03-31 16:15 | Progress Note ---
Internal Med Progress Note Date of Service: Mar 31, 2017. Provider Documentation: SUBJECTIVE: Seen and examined at bedside Reports generalized weakness Less cough Denies chest pain, SOB Family at bedside No other complaints OBJECTIVE: Vital Signs-as noted below Physical Exam: General Appearance:Moderately built and nourished, no apparent distress Head: normocephalic, Atraumatic Eyes: normal inspection, EOMI, PERRL Neck: supple, Trachea midline Respiratory/Chest: Normal breath sounds, Mild creps on Right side Cardiovascular: S1, S2, No murmur Abdomen/GI:Soft, Non tender, Bowel sounds present Extremities/Musculoskelatal:normal inspection, no edema Neurologic/Psych:AAOX3, grossly no focal neurological deficits Skin: normal color, warm Lab data as noted below. ASSESSMENT & PLAN: Right Sided Multilobar Pneumonia Likely secondary to Aspiration pneumonia secondary to GI upset No signs of sepsis CTA: No PE, Multifocal consolidative and patchy groundglass opacities throughout the right upper, lower and middle lobes suggests pneumonia. Recent outpatient CT evidence of small clusters of Ground-glass nodules in right Upper Lobe but PET scan is negative for any metastatic disease Continue IV Unasyn >>plan to switch tot PO tomorrow May need pulmonary evaluation if clinically deteriorates DC IV fluids Aspiration precautions Blood Cultures: No growth to date Generalized Weakness Multifactorial Pneumonia,Viral illness,Shingles and the h/o Breast cancer as well Improving Continue PT/OT: Patient not interested in Rehab Hypertension. Labile monitor Acute renal failure secondary to illness. Resolved monitor renal function Recent history herpes zoster, pain controlled on home narcotic prescribed by PCP. Pain is controlled Not on any Narcotics History of cerebrovascular accident as per records. No acute issue Breast cancer, left, status post surgery, radiation and chemotherapy. Mood disorder Stable Planned to follow up with as outpatient (Previously seen ) GERD: Continue home meds DVT Px: Heparin SQ. Code Status: Full code. PROCEDURES: Speech Eval: Continuation of current diet regular with thins 2.Safe swallow strategies (small bites, small sips, slow rate) 3.Out patient speech therapy after discharge to address ongoing cognitive and expressive deficits. Vital Signs: Date Time Temp Pulse Resp B/P (MAP) Pulse Ox O2 Delivery O2 Flow Rate FiO2 03/31/17 15:05 36.9 72 20 137/78 (97) 96 Room Air 03/31/17 08:00 Room Air 03/31/17 07:38 36.6 116 18 167/91 (116) 93 Room Air 03/31/17 02:00 94 Room Air 03/31/17 00:10 Room Air 03/30/17 23:34 37.2 79 20 148/79 (102) 92 Room Air Lab Results: Results Past 24 Hours Test 03/31/17 06:43 Range/Units Sodium Level 143 136-145 mmol/L Potassium Level 3.6 3.5-5.1 mmol/L Chloride Level 112 98-107 mmol/L Carbon Dioxide Level 24 21-32 mmol/L Anion Gap 7.0 3-11 mmol/L Blood Urea Nitrogen 4 7-18 mg/dl Creatinine 0.75 0.60-1.20 mg/dl Est Creatinine Clear Calc Drug Dose 81.3 ml/min Estimated GFR () 94.3 Estimated GFR (Non- 81.3 BUN/Creatinine Ratio 5.2 10-20 Random Glucose 102 70-99 mg/dl Calcium Level 8.8 8.5-10.1 mg/dl Magnesium Level 1.9 1.8-2.4 mg/dl
[2017-03-31] MEDS ORDERED: MONTELUKAST SOD 10 MG TAB PO SCH (21:00)
[2017-03-31] MEDS ORDERED: LITHIUM CARBONATE 450 MG TABCR PO SCH (21:00)
[2017-03-31] MEDS: FLUTICASONE/SALMETEROL 100/50 (ADVAIR) 14 PUFF/1 INHALER INH SCH (21:00)
[2017-03-31] MEDS: PRAVASTATIN SOD 40 MG TAB PO SCH (21:41)
[2017-03-31] MEDS: MULTIVITAMIN TAB PO SCH (21:41)
[2017-03-31] MEDS: RANITIDINE HCL 150 MG TAB PO SCH (21:42)
[2017-03-31] MEDS: TRAZODONE HCL 100 MG TAB PO SCH (21:43)
[2017-03-31 23:19] VITALS: BP 164/81; PULSE 73; TEMP 36.8; O2SAT 92
[2017-04-01] MEDS: TRAMADOL HCL 50 MG TAB PO PRN ×2 (00:16→08:32)
[2017-04-01] MEDS: AMPICILLIN/SULBACTAM SOD INJ 3,000 MG in SODIUM CHLORIDE 0.9% 100ML 100 ML IV SCH ×2 (04:06→10:58)
[2017-04-01] MEDS: LEVOTHYROXINE 125 MCG TAB PO SCH (05:59)
[2017-04-01] MEDS: HEPARIN SOD 5000 UNIT/0.5 ML CARP SQ SCH ×2 (05:59→13:10)
[2017-04-01 07:13] LABS: COMPLETE YES; IG% 0.5 %; LYMPH % 15.7 %; LYMPH ABS # 0.68 K/uL (1.2-3.4); MEAN CELL VOLUME 86.1 fL (80-100); MEAN CORPUSCULAR HEMOGLOBIN 28.9 pg (25-34); MEAN CORPUSCULAR HGB CONC 33.5 g/dl (32-36); MEAN PLATELET VOLUME 8.5 fL (7.4-10.4); MONO % 6.5 %; NEUT % 77.3 %; PLATELET COUNT 227 K/uL (130-400); RED BLOOD COUNT 3.95 M/uL (4.2-5.4); WHITE BLOOD COUNT 4.32 K/uL (4.8-10.8)
[2017-04-01 07:34] VITALS: BP 158/89; PULSE 81; TEMP 37.2; O2SAT 90
[2017-04-01 07:40] LABS: CALCIUM 8.6 mg/dl (8.5-10.1); CREATININE 0.65 mg/dl (0.60-1.20); MAGNESIUM 1.8 mg/dl (1.8-2.4); POTASSIUM 3.1 mmol/L (3.5-5.1)
[2017-04-01 08:00] VITALS: O2SAT 92
[2017-04-01] MEDS ORDERED: POTASSIUM CHLORIDE 10 MEQ TABCR PO ONE (08:00)
[2017-04-01] MEDS: ASTELIN - ORDER AWAITING ACTION SCH ×2 (08:00)
[2017-04-01] MEDS: DICLOFENAC SOD 1% GEL 100 GM TUBE EXT SCH (08:22)
[2017-04-01] MEDS: FLUTICASONE/SALMETEROL 100/50 (ADVAIR) 14 PUFF/1 INHALER INH SCH (08:22)
[2017-04-01] MEDS: GABAPENTIN 300 MG CAP PO SCH ×2 (08:26→13:10)
[2017-04-01] MEDS: ARTIFICIAL TEARS OP SOLN OPB SCH ×2 (08:26)
[2017-04-01] MEDS: LAMOTRIGINE PO SCH ×2 (08:26)
[2017-04-01] MEDS: ASPIRIN 81 MG ECTAB PO SCH (08:26)
[2017-04-01] MEDS: AMLODIPINE BESYLATE 5 MG TAB PO SCH (08:26)
[2017-04-01] MEDS: GUAIFENESIN 600 MG TABCR PO SCH (08:28)
[2017-04-01] MEDS: LACTOBACILLUS ACIDOPHILUS (FLORANEX) TAB PO SCH (08:28)
[2017-04-01] MEDS ORDERED: FLUTICASONE PROPIONATE NA SPR 16 GM BTL NAE SCH (09:00)
[2017-04-01] MEDS ORDERED: ONDANSETRON INJ 2 MG/ML 2 ML VIAL ONE (12:30)
--- NOTE | 2017-04-01 12:31 | Progress Note ---
Internal Med Progress Note Date of Service: Apr 01, 2017. Provider Documentation: SUBJECTIVE: Seen and examined at bedside Feels well when compared to yesterday Mild nausea but not vomiting Generalized weakness improved Denies chest pain, SOB, cough Family at bedside No other complaints OBJECTIVE: Vital Signs-as noted below Physical Exam: General Appearance:Moderately built and nourished, no apparent distress Head: normocephalic, Atraumatic Eyes: normal inspection, EOMI, PERRL Neck: supple, Trachea midline Respiratory/Chest: Normal breath sounds, CTA Cardiovascular: S1, S2, No murmur Abdomen/GI:Soft, Non tender, Bowel sounds present Extremities/Musculoskelatal:normal inspection, no edema Neurologic/Psych:AAOX3, grossly no focal neurological deficits Skin: normal color, warm Lab data as noted below. ASSESSMENT & PLAN: Right Sided Multilobar Pneumonia Likely secondary to Aspiration pneumonia secondary to GI upset No signs of sepsis CTA: No PE, Multifocal consolidative and patchy groundglass opacities throughout the right upper, lower and middle lobes suggests pneumonia. Recent outpatient CT evidence of small clusters of Ground-glass nodules in right Upper Lobe but PET scan is negative for any metastatic disease Continue IV Unasyn >>plan to switch to PO Augmentin today May need pulmonary evaluation if clinically deteriorates DC IV fluids Aspiration precautions Blood Cultures: No growth to date Generalized Weakness Multifactorial Pneumonia,Viral illness,Shingles and the h/o Breast cancer as well Improved Continue PT/OT: Patient not interested in Rehab Hypokalemia: Replaced Hypertension. Labile monitor Acute renal failure secondary to illness. Resolved monitor renal function Recent history herpes zoster, pain controlled on home narcotic prescribed by PCP. Pain is controlled Not on any Narcotics History of cerebrovascular accident as per records. No acute issue Breast cancer, left, status post surgery, radiation and chemotherapy. Mood disorder Stable Planned to follow up with as outpatient (Previously seen ) GERD: Continue home meds DVT Px: Heparin SQ. Code Status: Full code. Disposition: Plan to discharge home today Follow up with on 04/06/17 at 9:25am Complete the antibiotic course as prescribed Get speech therapy as outpatient Seek immediate medical attention if your symptoms reoccur or worsen PROCEDURES: Speech Eval: Continuation of current diet regular with thins 2.Safe swallow strategies (small bites, small sips, slow rate) 3.Out patient speech therapy after discharge to address ongoing cognitive and expressive deficits. Vital Signs: Date Time Temp Pulse Resp B/P (MAP) Pulse Ox O2 Delivery O2 Flow Rate FiO2 04/01/17 08:00 92 Room Air 04/01/17 07:34 37.2 81 18 158/89 (112) 90 Room Air 04/01/17 00:15 Room Air 03/31/17 23:19 36.8 73 19 164/81 (108) 92 Room Air 03/31/17 16:00 Room Air 03/31/17 15:05 36.9 72 20 137/78 (97) 96 Room Air Lab Results: Results Past 24 Hours Test 04/01/17 06:45 Range/Units White Blood Count 4.32 4.8-10.8 K/uL Red Blood Count 3.95 4.2-5.4 M/uL Hemoglobin 11.4 12.0-16.0 g/dL Hematocrit 34.0 37-47 % Mean Corpuscular Volume 86.1 80-100 fL Mean Corpuscular Hemoglobin 28.9 25-34 pg Mean Corpuscular Hemoglobin Concent 33.5 32-36 g/dl Platelet Count 227 130-400 K/uL Mean Platelet Volume 8.5 7.4-10.4 fL Neutrophils (%) (Auto) 77.3 % Lymphocytes (%) (Auto) 15.7 % Monocytes (%) (Auto) 6.5 % Eosinophils (%) (Auto) 0.0 % Basophils (%) (Auto) 0.0 % Neutrophils # (Auto) 3.34 1.4-6.5 K/uL Lymphocytes # (Auto) 0.68 1.2-3.4 K/uL Monocytes # (Auto) 0.28 0.11-0.59 K/uL Eosinophils # (Auto) 0.00 0-0.5 K/uL Basophils # (Auto) 0.00 0-0.2 K/uL RDW Standard Deviation 44.8 36.4-46.3 fL RDW Coefficient of Variation 14.2 11.5-14.5 % Immature Granulocyte % (Auto) 0.5 % Immature Granulocyte # (Auto) 0.02 0.00-0.02 K/uL Sodium Level 139 136-145 mmol/L Potassium Level 3.1 3.5-5.1 mmol/L Chloride Level 108 98-107 mmol/L Carbon Dioxide Level 25 21-32 mmol/L Anion Gap 6.0 3-11 mmol/L Blood Urea Nitrogen 3 7-18 mg/dl Creatinine 0.65 0.60-1.20 mg/dl Est Creatinine Clear Calc Drug Dose 93.8 ml/min Estimated GFR () 105.0 Estimated GFR (Non- 90.6 BUN/Creatinine Ratio 5.0 10-20 Random Glucose 96 70-99 mg/dl Calcium Level 8.6 8.5-10.1 mg/dl Magnesium Level 1.8 1.8-2.4 mg/dl
[2017-04-01] MEDS ORDERED: ONDANSETRON INJ 2 MG/ML 2 ML VIAL IV STA (12:33)
[2017-04-01] MEDS ORDERED: AMOX875T PO (12:34)
[2017-04-01] MEDS ORDERED: SNG10 PO (12:34)
[2017-04-01 12:37] VITALS: BP 158/89; PULSE 81; TEMP 37.2; O2SAT 92
--- NOTE | 2017-04-01 12:37 | Discharge Summary ---
Discharge Summary Date of Service Apr 01, 2017. Discharge Summary Admission Date: Mar 29, 2017 at 03:25 Discharge Date: Apr 01, 2017 Discharge Disposition: Home Principal Diagnosis: Right Sided Multilobar Pneumonia likely secondary to Aspiration Procedures: CTA: 1. No acute aortic pathology or evidence of pulmonary thromboembolic disease. 2. Multifocal consolidative and patchy groundglass opacities throughout the right upper, lower and middle lobes suggests pneumonia. Follow-up imaging to document resolution is recommended. 3. Mildly prominent mediastinal and hilar adenopathy is likely reactive. 4. Postoperative changes from prior left axillary rajiv dissection. 5. Mild splenomegaly. CT head: No acute intracranial findings Consultations: None Pending Studies/Follow-Up: Follow up with on 04/06/17 at 9:25am Complete the antibiotic course as prescribed Get speech therapy as outpatient Seek immediate medical attention if your symptoms reoccur or worsen Medication Reconciliation New Medications: Amoxicillin & Pot Clavulanate (Augmentin 875-125 mg) 1 Tab Tab 1 TAB PO BID for 5 Days, #10 TAB Montelukast Sod (Montelukast Sodium) 10 Mg Tab 5 MG PO HS for 1 Day, #1 TAB Continued Medications: Amlodipine (Norvasc) 5 Mg Tab 5 MG PO QAM, TAB Artificial Tear Solution (Soothe Xp) 1 Reese Reese 1 DROP OPB BID Ascorbic Acid (Vitamin C) 500 Mg Tab 500 MG PO BID Aspirin Enteric Coated (Ecotrin Or Generic) 81 Mg Tab 81 MG PO QAM, TAB Atenolol (Atenolol) 50 Mg Tab 50 MG PO QAM, #90 Azelastine Hcl (Astelin Nasal [place]) 200 Sprays/30 Ml [place] 2 SPRAYS NA BID Calcium Carbonate-Vitamin D (Calcium) 1 Tab Tab 1 TAB PO DAILY Celecoxib (CeleBREX) 200 Mg Cap 200 MG PO DAILY, CAP Cranberry (Vaccinium Macrocarp (Cranberry) 300 Mg Tab 300 MG PO TID Cyanocobalamin (Vitamin B-12) 100 Mcg Tab 100 MCG PO DAILY, TAB Dicyclomine Hcl (Bentyl) 20 Mg Tab 20 MG PO QID PRN for abdominal cramping Fluticasone Propionate (Nasal) (Flonase Allergy Relief) 50 Mcg/Act Spr 2 SPRAYS ALLI AMPM Furosemide (Lasix) 20 Mg Tab 20 MG PO QAM Gabapentin (Neurontin) 300 Mg Cap 300 MG PO TID, CAP Lamotrigine (Lamictal) 150 Mg Tab 150 MG PO AMPM, TAB Levothyroxine Sodium (Levothyroxine Sodium) 125 Mcg Tab 125 MCG PO QAM [place] Carbonate Ext Rel (Lithobid Ext Rel) 450 Mg Tabcr 450 MG PO QPM 2100 Lorazepam (Ativan) 1 Mg Tab 0.5-1 MG PO Q6H PRN for Anxiety/Agitation, TAB Losartan Potassium (Cozaar) 100 Mg Tab 100 MG PO QAM, #90 Meclizine Hcl (Meclizine Hcl) 25 Mg Tab 50 MG PO TID PRN for Nausea for 10 Days, #60 TAB Multivitamin (Multivitamin) Tab 1 TAB PO QPM, TAB Qxtykgub-Vsmrsrybq-Jx (Otic) (Neomycin/Polymyxin/Hc) 1 Nat Nat 1 DROPS OTB 2XWK Omeprazole (Prilosec) 20 Mg Capcr 20 MG PO BID, CAP Ondansetron Hcl (Zofran) 8 Mg Tab 8 MG PO Q8 PRN for Nausea, TAB Pilocarpine (Salagen) 5 Mg Tab 5 MG PO QID, TAB Pravastatin Sodium (Pravastatin Sodium) 80 Mg Tab 80 MG PO HS, #90 Probiotic Product (Probiotic) 1 Tab Tab 1 TAB PO BID Promethazine Hcl (Phenergan) 25 Mg Tab 25 MG PO Q6H PRN for Nausea, TAB Ranitidine (Zantac) 300 Mg Tab 300 MG PO HS, TAB Tramadol Hcl (Ultram) 50 Mg Tab 50-100 MG PO TID PRN for Pain NEEDED FOR PAIN. Trazodone Hcl (Trazodone) 100 Mg Tab 200 MG PO HS, TAB Admission Information HPI (per Admitting provider): CHIEF COMPLAINT: Cough, weakness. HISTORY OF PRESENT ILLNESS: History obtained from patient and records. Medical history significant for hypertension, history of CVA, reflux, mood disorder, breast cancer L status post surgery, radiation, chemotherapy. Recent confinement November 2016 for cellulitis. Yesterday morning, patient woke up feeling cold, temperature 100.4. Patient felt dizzy sleeping most of the day as per , not making sense subsequently noted achy headache, nausea, vomiting symptoms, cough symptoms, unable to expectorate. Chest x-ray at the ER showed pneumonia on the right. Patient given ceftriaxone in the ER. Physical Exam (per Admitting): PHYSICAL EXAMINATION: VITAL SIGNS: Blood pressure was noted to be initially 93/62 later 103/54, pulse 69, RR 20, temperature 37, sats 91 on room air. GENERAL: Noted to be slightly uncomfortable, obese . SKIN: Warm, normal color. Dried crusty rash on the left flank, no active vesicles noted, hyperesthetic. HEENT: [place] palpebral conjunctiva. No ptosis. Dry buccal mucosa. NECK: Short. No tenderness. CHEST: Decreased breath sounds. No tenderness. HEART: Regular rate and rhythm. No murmur. ABDOMEN: Soft, some distension, nontender. EXTREMITIES: Minimal LUE swelling (chronic), no tenderness. No LE swelling. No tenderness. No gross deformities except for LUE lymphedema. NEUROLOGIC: Sleepy but coherent. No facial asymmetry. No other gross focality. Gait and stance not assessed. Hospital Course Right Sided Multilobar Pneumonia Likely secondary to Aspiration pneumonia secondary to GI upset No signs of sepsis CTA: No PE, Multifocal consolidative and patchy groundglass opacities throughout the right upper, lower and middle lobes suggests pneumonia. Recent outpatient CT evidence of small clusters of Ground-glass nodules in right Upper Lobe but PET scan is negative for any metastatic disease Continue IV Unasyn >>plan to switch to PO Augmentin today May need pulmonary evaluation if clinically deteriorates DC IV fluids Aspiration precautions Blood Cultures: No growth to date Generalized Weakness Multifactorial Pneumonia,Viral illness,Shingles and the h/o Breast cancer as well Improved Continue PT/OT: Patient not interested in Rehab Hypokalemia: Replaced Hypertension. Labile monitor Acute renal failure secondary to illness. Resolved monitor renal function Recent history herpes zoster, pain controlled on home narcotic prescribed by PCP. Pain is controlled Not on any Narcotics History of cerebrovascular accident as per records. No acute issue Breast cancer, left, status post surgery, radiation and chemotherapy. Mood disorder Stable Planned to follow up with as outpatient (Previously seen ) GERD: Continue home meds DVT Px: Heparin SQ. Code Status: Full code. Disposition: Plan to discharge home today Follow up with on 04/06/17 at 9:25am Complete the antibiotic course as prescribed Get speech therapy as outpatient Seek immediate medical attention if your symptoms reoccur or worsen PROCEDURES: Speech Eval: Continuation of current diet regular with thins 2.Safe swallow strategies (small bites, small sips, slow rate) 3.Out patient speech therapy after discharge to address ongoing cognitive and expressive deficits. Total time spent on discharge = 32 minutes This includes examination of the patient, discharge planning, medication reconciliation, and communication with other providers. Discharge Instructions Discharge Instructions Date of Service Apr 01, 2017. Admission Reason for Admission: Aspiration Pneumonia Discharge Discharge Diagnosis / Problem: Right Sided Multilobar Pneumonia likely secondary to Aspiration Discharge Goals Goal(s): Decrease discomfort, Improve function Activity Recommendations Activity Limitations: resume your previous activity Exercise/Sports Limitations: as tolerated . Instructions / Follow-Up Instructions / Follow-Up Follow up with on 04/06/17 at 9:25am Complete the antibiotic course as prescribed Get speech therapy as outpatient Seek immediate medical attention if your symptoms reoccur or worsen Current Hospital Diet Patient's current hospital diet: Regular Diet Discharge Diet Recommended Diet: AHA Diet (Heart Healthy) Pending Studies Studies pending at discharge: no Medical Emergencies . Who to Call and When: Medical Emergencies: If at any time you feel your situation is an emergency, please call 911 immediately. . Non-Emergent Contact Non-Emergency issues call your: Primary Care Provider Call Non-Emergent contact if: you have a fever, your pain is not controlled, your pain is worsening, your pain is unusual for you, your pain is concerning you, you have any medication questions Seek immediate medical attention if your symptoms reoccur or worsen . . "Provider Documentation" section prepared by Randall Zafar. . VTE Core Measure Inpt VTE Proph given/why not?: Unfractionated heparin SQ <Electronically signed by Randall Zafar MD> Signed: 04/01/17 4635 Signed: The status of this report is Signed * If report status is Draft, the document has not been finalized by the responsible provider.
== END 2017-04-01 13:28 | disposition home or self-care (01) | DRG 178 ==
LOC: C.EDB 22:47 → C.MS2W 03-29 03:25 → EDBEDREQ 03-29 03:40 → ENRESERV 03-29 04:00
PROVIDERS: ADMIT Internal Medicine; ATTEND Internal Medicine
DX: J69.0 Pneumonitis due to inhalation of food and vomit (principal); N17.9 Acute kidney failure, unspecified; R11.10 Vomiting, unspecified; E87.6 Hypokalemia; I10 Essential (primary) hypertension; B02.9 Zoster without complications; F39 Unspecified mood [affective] disorder; K21.9 Gastro-esophageal reflux disease without esophagitis; Z86.73 Personal history of transient ischemic attack (TIA), and cerebral infarction without residual deficits; Z85.3 Personal history of malignant neoplasm of breast; Z92.3 Personal history of irradiation; Z92.21 Personal history of antineoplastic chemotherapy; Z79.82 Long term (current) use of aspirin; Z79.899 Other long term (current) drug therapy; Z88.1 Allergy status to other antibiotic agents; Z88.2 Allergy status to sulfonamides; Z88.8 Allergy status to other drugs, medicaments and biological substances; Z83.3 Family history of diabetes mellitus; Z82.49 Family history of ischemic heart disease and other diseases of the circulatory system

== ENCOUNTER → 2017-04-23 | Outpatient (CLI) | payer OTHER, MEDICARE ==
[~2017-04-23] MED LIST changes: +ATV/1 PO; -ATV1 PO; -CETI10TA84 PO; +CLB/200 PO; -LAMO100T16 PO; -LCTX PO; +LMC/150 PO; +SNG10 PO
--- NOTE | 2017-04-23 09:55 | DIAGNOSTIC IMAGING REPORT ---
GI SERIES W/AIR ROUTINE CLINICAL HISTORY: Difficulty swallowing. Reflux symptomatology. Pneumonia. . COMPARISON STUDY: FLUOROSCOPY TIME: 1.8 minutes. NUMBER OF FLUOROSCOPIC IMAGES: 23 FINDINGS: The patient swallowed effervescent granules and barium without difficulty. No mass lesions or ulcerations were evident within the esophagus. There was reflux present. The gastric masses or ulcerations are visualized. The duodenal bulb appeared normal. The ligament Treitz is located in the normal anatomical position. Postsurgical changes are present within both the cervical spine and lumbar spine. IMPRESSION: Gastroesophageal reflux. Otherwise normal study. Electronically signed by: Oliverio Marmolejo M.D. 04/23/2017 9:54 AM Dictated Date/Time: 04/23/2017 9:53 AM
== END | disposition home or self-care (01) ==
LOC: C.RAD 09:03
PROVIDERS: ATTEND Family Medicine
DX: J18.9 Pneumonia, unspecified organism (principal); K21.9 Gastro-esophageal reflux disease without esophagitis; Z09 Encounter for follow-up examination after completed treatment for conditions other than malignant neoplasm

== ENCOUNTER → 2017-05-13 | Outpatient (CLI) | payer OTHER, MEDICARE ==
--- NOTE | 2017-05-13 13:56 | DIAGNOSTIC IMAGING REPORT ---
VIDEO SWALLOW HISTORY: ASPIRATION PNEUMONIA,REFLUX TECHNIQUE: Video fluoroscopic evaluation of swallowing was performed in the AP and lateral projections by the speech pathology staff. The patient is fed nectar-thick and thin liquid barium, a barium coated wafer, and barium pudding. FLUOROSCOPY TIME: 2.2 minutes. A cine loop submitted. COMPARISON STUDY: None. FINDINGS: There is normal hyoid excursion and epiglottic deflection. No significant penetration or aspiration identified. Swallowing function is within normal limits. C3-C5 ACDF with an intervertebral cage at C5-C6. IMPRESSION: 1. No aspiration identified. 2. Please see the speech pathologist report for detailed findings and recommendations. Electronically signed by: Kurt Lovett M.D. 05/13/2017 1:54 PM Dictated Date/Time: 05/13/2017 1:47 PM
--- NOTE | 2017-05-13 14:41 | SWALLOWING EVALUATION ---
HISTORY: This 71 year old woman was referred for a video swallow study at [facility] in order to rule out aspiration and identify the safest consistencies for optimal oral intake. The patient reports that she has coughing episodes that occur all day that does not necessarily worsen with food, but that she feels both food/liquid may cause her to cough at times. She also reports a choking sensation when she lays flat and globus sensation. The patient has been diagnosed with pneumonia twice over the past 2 months. PMH is significant for HTN, CVA, GERD, mood disorder, and left breast cancer s/p radiation and chemotherapies. Current diet is regular. PROCEDURE: The patient was seen in the Radiology Department of [facility] for the [facility]. Cursory examination of the oral cavity revealed the patient to have natural dentition in good condition. Oral motor function was wnl. The patient was seated upright on a stool and was viewed in both the Anterior-Posterior (A-P) and Lateral planes. Volitional phonation exercises completed in the A-P plane revealed bilateral vocal fold movement and vocal intensity within functional limits. Cervical hardware was present. In the lateral plane, the patient was given the following boluses: 1 tsp. thin liquid barium x 2, single swallow thin liquid barium self-presented from a cup, sequential swallows of thin liquid barium self-presented from a straw, 1 tsp. nectar-thick liquid barium, single swallow nectar-thick liquid barium self-presented from a cup, 1 tsp. barium pudding, and 1 club cracker coated in barium pudding. The patient was then repositioned into the A-P plane and given the following boluses: 1 tsp. nectar thick barium and 1 tsp. barium pudding. RESULTS: Oral Stage: Lip closure was adequate. The patient was able to maintain a cohesive liquid bolus in the oral cavity. Mastication was slowed. Lingual motion for bolus transport was also noted to be slow. There was retention lining the tongue and palate after the initial swallow. The initiation of the pharyngeal swallow occurred when the bolus head reached the pyriforms. Pharyngeal Stage: Soft palate elevation was complete. Laryngeal elevation revealed partial superior movement of the thyroid cartilage and partial approximation of the arytenoids to the epiglottic base. Anterior hyoid excursion and epiglottic deflection was complete. Laryngeal vestibular closure was incomplete as evidenced by a narrow column of contrast located in the vestibule at the height of the swallow. The pharyngeal stripping wave was present and complete. Pharyngeal contraction was complete. There was complete distention and duration of the opening to the pharyngoesophageal segment (PES). Tongue base retraction was partially reduced with a narrow column of contrast located between the tongue base and pharyngeal wall during the swallow. There was mild retention located along the tongue base and in the valleculae after the swallow. There was one episode of laryngeal penetration with thin liquids that redirected. No other laryngeal penetration or aspiration was identified for this study. Mild retention cleared with a second swallow. No significant difficulty identified. Esophageal stage: The patient presented with mild mid-distal esophageal retention and retrograde flow below the PES. This is suggestive of esophageal dysmotility and reflux. SUMMARY/RECOMMENDATIONS: This patient presents with mild herberth-pharyngeal dysphagia. She presents with s/s of esophageal dysfunction. The following is recommended: 1. Regular diet and thin liquids. Consider a "slippery" diet; avoid foods that are dry, thick, pasty, doughy. Use condiments to assist in keeping foods moist. 2. GERD precautions. Fully upright for meals and for 30 minutes after meals. Do not lay flat, keep head of bed at a 30 degree angle at all times, even while sleeping. 3. Alternate solids and liquids. Rest breaks during meals as needed. 4. Follow up PCP and consider a GI consultation re: management of esophageal dysphagia as appropriate. Consider further testing and/or medication management as indicated. A summary of the results and recommendations was discussed with the patient and her spouse immediately after the study with verbal understanding. Both verbal and written education was provided regarding a "slippery" diet as well for improved comfort while eating. Thank you for referral of this patient. Please contact me at if any additional information is needed.
== END | disposition home or self-care (01) ==
LOC: C.RAD 12:55
PROVIDERS: ATTEND Family Medicine
DX: J69.0 Pneumonitis due to inhalation of food and vomit (principal); K21.9 Gastro-esophageal reflux disease without esophagitis; R13.12 Dysphagia, oropharyngeal phase

== ENCOUNTER → 2017-06-30 | Outpatient (CLI) | payer OTHER, MEDICARE ==
[2015-07-09 13:58] VITALS: BP 115/76; PULSE 61
[~2017-06-30] MED LIST changes: +DICY20TA10 PO; +IPRA0.03; +MIRT15TA2 PO; +MONT1CHW6 PO; +NITR-5 PO; +ONDA-170 PO; -ONDA8TAB6 PO
[2017-06-30 13:35] VITALS: BP 150/81; PULSE 73; TEMP 36.8; O2SAT 93
--- NOTE | 2017-06-30 14:45 | Radiation Oncology Follow-Up ---
Radiation Oncology Follow-Up Date of Visit Jun 30, 2017. Reason For Visit Annual follow-up Radiation Completion Date 11/09/13 - Left Breast SC/Axilla Diagnosis (1) History of breast cancer Status: Resolved Onset Date: 03/14/2013 Location: Left breast with axillary lymph node metastasis Histology Subtype: Adenocarcinoma Permanent Comment: Abnormal left breast mammogram revealing left axillary adenopathy 11/29/2012 Status post fine-needle aspiration of the left breast 01/03/2013 revealing suspicious cells for metastatic neoplasm Status post ultrasound-guided biopsy of the left axilla revealing metastatic adenocarcinoma Status post left axillary dissection staged [id number] Systemic chemotherapy with TAC Status post completion of radiation therapy 11/09/2013 received 5040 cGy to the left breast and 4680 cGy to left supraclavicular area and axilla Status post left nipple surgery 05/23/2014. Pathology benign Last Edited By: Chris Black on Dec 04, 2016 03:03 Interim History She has had issues over the past year with recurrent cellulitis first in her arm and then him her breast. The problem began after she fell in August. She injured her right anterior chest wall. After the fall she then developed swelling of her arm. She has been followed closely at the lymphedema clinic. She has been receiving treatment regularly. She is wearing sleeve and gauntlet daily. She also uses a pump for 1 hour at least 3 times a week. Her has kept photographic journal of her progress. She has had steady improvement of the hand and arm. She unfortunately was also hospitalized for pneumonia in March. She has had an issue with a cough following the pneumonia. She is past due for an MRI of the breast but cannot get this performed due to the recurrent cough. She also had cellulitis of the breast. This was treated with outpatient antibiotic therapy and resolved. When she had the cellulitis of her arm she did require hospitalization. She is now followed by Dr. Castellano from infectious disease. Over the past 2 weeks she has felt some increased swelling on the lateral side of the breast. There is a feeling of warmth but has noted no redness of the skin. Allergies Coded Allergies: Baclofen (Verified Allergy, Severe, NEURO SYMPTOMS, 03/28/17) Ciprofloxacin (Verified Allergy, Severe, HIVES, 03/28/17) Morphine (Verified Allergy, Severe, DELIRIUM, 03/28/17) Metronidazole (Verified Allergy, Intermediate, hives, 03/28/17) Sulfa Antibiotics (Verified Allergy, Intermediate, HIVES, 03/31/17) Quinolones (Verified Allergy, Mild, CIPRO, 03/28/17) Zolpidem (Verified Adverse Reaction, Mild, delusions, 03/28/17) HALLUCINATIONS Pantoprazole (Verified Adverse Reaction, Unknown, migraines, 03/28/17) Home Medications Scheduled Amlodipine (Norvasc), 5 MG PO QAM Artificial Tear Solution (Soothe Xp), 1 DROP OPB BID Ascorbic Acid (Vitamin C), 500 MG PO BID Aspirin Enteric Coated (Ecotrin Or Generic), 81 MG PO QAM Atenolol (Atenolol), 50 MG PO QAM Azelastine Hcl (Astelin Nasal [place]), 2 SPRAYS NA BID Calcium Carbonate-Vitamin D (Calcium), 1 TAB PO DAILY Celecoxib (CeleBREX), 200 MG PO DAILY Cranberry (Vaccinium Macrocarp (Cranberry), 300 MG PO TID Cyanocobalamin (Vitamin B-12), 100 MCG PO DAILY Fluticasone Propionate (Nasal) (Flonase Allergy Relief), 2 SPRAYS ALLI AMPM Furosemide (Lasix), 20 MG PO QAM Gabapentin (Neurontin), 300 MG PO TID Lamotrigine (Lamictal), 150 MG PO AMPM Levothyroxine Sodium (Levothyroxine Sodium), 125 MCG PO QAM [place] Carbonate Ext Rel (Lithobid Ext Rel), 450 MG PO QPM Losartan Potassium (Cozaar), 100 MG PO QAM Montelukast Sod (Montelukast Sodium), 5 MG PO HS Multivitamin (Multivitamin), 1 TAB PO QPM [place]-Fvzprzfqr-Zg (Otic) (Neomycin/Polymyxin/Hc), 1 DROPS OTB 2XWK Omeprazole (Prilosec), 20 MG PO BID Pilocarpine ([place]), 5 MG PO QID Pravastatin Sodium (Pravastatin Sodium), 80 MG PO HS Probiotic Product (Probiotic), 1 TAB PO BID Ranitidine (Zantac), 300 MG PO HS Trazodone Hcl (Trazodone), 200 MG PO HS Scheduled PRN Dicyclomine Hcl (Bentyl), 20 MG PO QID PRN for abdominal cramping Lorazepam (Ativan), 0.5-1 MG PO Q6H PRN for Anxiety/Agitation Meclizine Hcl (Meclizine Hcl), 50 MG PO TID PRN for Nausea Ondansetron Hcl (Zofran), 8 MG PO Q8 PRN for Nausea Promethazine Hcl (Phenergan), 25 MG PO Q6H PRN for Nausea Tramadol Hcl (Ultram), 50-100 MG PO TID PRN for Pain Review of Systems Gastrointestinal: Symptoms: WNL GI Comments: Occass. wave of nausea-no emesis;Has antiemetic; Oral: Symptoms: No Problems Respiratory: Symptoms: WNL, Moist Cough, Productive Cough Other Respiratory: Productive cough at times of thick white phlegm Urinary: Symptoms: WNL Comments: nocturia times 4 Skin: Symptoms: No Problems Other Skin Symptoms: Continued lympedema treatment at [facility] Breast: Right Upper Arm Measurement: 33.0 Right Mid Arm Measurement: 25.2 Right Wrist Measurement: 16.0 Left Upper Arm Measurement: 38.3 Left Mid Arm Measurement: 29.1 Left Wrist Measurement: 16.2 Arm Dominence: Right Patient Cosmetic Evaluation: Good Staff Cosmetic Evalaluation: Good Physical Exam Vital Signs Date Time Temp Pulse Resp B/P (MAP) Pulse Ox O2 Delivery O2 Flow Rate FiO2 06/30/17 13:35 36.8 73 16 150/81 93 Fatigue: None General Appearance: no apparent distress Eyes: normal inspection, EOMI ENT: normal ENT inspection, hearing grossly normal Neck: no adenopathy, thyroid normal Respiratory/Chest: lungs clear, no respiratory distress, no accessory muscle use Breast: Breast examination reveals mild edema of the left breast. There are minimal fibrous changes. There is no erythema. There are no masses. She has slight tenderness in the area of the axillary incision. There is no axillary adenopathy. She has no skin retractions. There is inversion of the nipple on the left which is unchanged. The right breast showed no masses or tenderness and no axillary adenopathy. Both breasts have one small area of ecchymosis that is resolving. Cardiovascular: regular rate, rhythm, no gallop, no murmur Extremities: no pedal edema, + pertinent finding (Noted edema of the upper portion of the left arm. There is mild edema of the lower forearm. Currently there is no edema in her hand.) Neurologic/Psychiatric: no motor/sensory deficits, alert, normal mood/affect Skin: warm/dry Lymphatic: no adenopathy Pain Management Patient Reports Pain: No Side: Bilateral Pain Location: back Patient Preferred Pain Scale: 0 - 10 Initial Pain Intensity: 5.0 Pain Management Plan She denies pain therefore requires no pain management. Laboratory Laboratory Results: not applicable Pathology Pathology Results: not applicable Imaging Imaging Studies: were reviewed, and pertinent findings noted below Imaging Comments It is planned that she will be having an MRI of her breasts. She has been unable to schedule this due to her persistent cough. Assessment & Plan Plan: Continue follow-up with her primary care physician and Dr. Almodovar. She is going to be following with Dr. Liz in medical oncology. She also follows with Dr. Castellano in infectious disease. She is planning to schedule the MRI when she feels she is capable. They stated that the MRIs were going to be alternating with mammography. We discussed prevention of skin irritation of the arm and hand by good hydration and use of skin moisturizers. They are going to speak with medical oncology or infectious disease about having a prescription on hand should she suddenly developed the cellulitis once again. We asked her to return to our office in 1 year. She may call if she has any questions or concerns in the interim. Total Time In Follow-Up I spent 20 minutes speaking to the patient in performing examination. I spent 15 minutes reviewing information and completing this note. [place] Copy To Sagar Castellano MD; Tonie Rendon M.D.; Minda Almodovar MD; Vinnie Liz M.D.
== END | disposition home or self-care (01) ==
LOC: C.ONC 13:29
PROVIDERS: ATTEND Physician Assistant Medical
DX: Z08 Encounter for follow-up examination after completed treatment for malignant neoplasm (principal); Z92.3 Personal history of irradiation; Z85.3 Personal history of malignant neoplasm of breast

== ENCOUNTER → 2017-07-06 | Day surgery (SDC) | payer OTHER, MEDICARE ==
[2017-07-01 15:38] VITALS: BMI 29.0
[~2017-07-06] VITALS: Ht 172.7 cm; Wt 86.4 kg
[~2017-07-06] MED LIST changes: -ASTN; -DICY20TA35 PO; +LIDOCAINE HCL 2% 2 ML VIAL (20MG/ML) ONE; +PROPOFOL IV EMULSION 10 MG/ML 20 ML VIAL IV ONE; -SNG10 PO; +SODIUM CHLORIDE 0.9% 500ML 500 ML IV ONE
[2017-07-06 09:27] VITALS: Ht 172.7 cm; Wt 86.4 kg
--- NOTE | 2017-07-06 09:53 | Endo History and Physical ---
History & Physical Date of Service: Jul 06, 2017. Chief Complaint: Referring Physician: History of Present Illness GERD, here for [facility] PH test Past Medical History Arthritis, Anxiety, Reflux, Cancer, High Cholesterol, Hypertension, Thyroid Disease, CVA/TIA, Depression Past Surgical History Hx Cardiac Surgery: No Hx Internal Defibrillator: No Hx Pacemaker: No Hx Abdominal Surgery: No Hx of Implantable Prosthesis: No Hx Post-Op Nausea and Vomiting: No Hx Cancer Surgery: Yes (LT SIDE LYMPH NODE REMOVAL) Hx Thoracic Surgery: Yes Hx Orthopedic: Yes (T10-S1 FUSION, LT/RT TKA, C5-6 FUSION, C2-3 3-4 4-5 FUSION (FULL ROM)) Hx Urinary Tract Surgery: No Family History None Social History Smoking Status: Never Smoker Hx Substance Use: No Hx Alcohol Use: No Allergies Coded Allergies: Baclofen (Verified Allergy, Severe, NEURO SYMPTOMS, 07/06/17) Ciprofloxacin (Verified Allergy, Severe, HIVES, 07/06/17) Morphine (Verified Allergy, Severe, DELIRIUM, 07/06/17) Metronidazole (Verified Allergy, Intermediate, hives, 07/06/17) Sulfa Antibiotics (Verified Allergy, Intermediate, HIVES, 07/06/17) Quinolones (Verified Allergy, Mild, CIPRO, 07/06/17) Zolpidem (Verified Adverse Reaction, Mild, delusions, 07/06/17) HALLUCINATIONS Pantoprazole (Verified Adverse Reaction, Unknown, migraines, 07/06/17) Current Medications Reported Home Medications Medications Dose Route/Sig Max Daily Dose Days Date Category Dose Instructions Macrobid (Nitrofurantoin Macrocrystals) 100 Mg Cap 100 Mg PO BID 7 07/01/17 Reported WILL COMPLETE 07-08-17 Remeron Soltab (Mirtazapine) 15 Mg Soltab 15 Mg PO HS 07/01/17 Reported Singulair Chewable (Montelukast Sodium) 5 Mg Chw 5 Mg PO HS 07/01/17 Reported Ipratropium [place] (Ipratropium [place] (Nasal)) 0.03 % Spr 2 [place] NA TID 07/01/17 Reported Dicyclomine Hcl 20 Mg Tab 1 Tab PO QID PRN 07/01/17 Reported CeleBREX (Celecoxib) 200 Mg Cap 200 Mg PO QPM 03/29/17 Reported Salagen (Pilocarpine HCl) 5 Mg Tab 5 Mg PO QID PRN 03/29/17 Reported Ativan (Lorazepam) 1 Mg Tab 0.5-1 Mg PO Q6H PRN 03/28/17 Reported Lamictal (Lamotrigine) 150 Mg Tab 150 Mg PO AMPM 03/28/17 Reported Zofran (Ondansetron HCl) 8 Mg Tab 8 Mg PO Q8 PRN 12/03/16 Reported Vitamin C (Ascorbic Acid) 500 Mg Tab 500 Mg PO BID 12/03/16 Reported Trazodone (Trazodone HCl) 100 Mg Tab 200 Mg PO HS 12/03/16 Reported Soothe Xp (Artificial Tear Solution) 1 Reese Reese 1 Drop OPB BID 12/03/16 Reported Phenergan (Promethazine HCl) 25 Mg Tab 25 Mg PO Q6H PRN 12/03/16 Reported Meclizine Hcl 25 Mg Tab 50 Mg PO TID PRN 12/03/16 Reported Probiotic (Probiotic Product) 1 Tab Tab 1 Tab PO BID 12/03/16 Reported Flonase Allergy Relief (Fluticasone Propionate (Nasal)) 50 Mcg/Act Spr 2 Sprays ALLI AMPM 12/03/16 Reported Calcium (Calcium Carbonate-Vitamin D) 1 Tab Tab 1 Tab PO DAILY 12/03/16 Reported Norvasc (Amlodipine Besylate) 5 Mg Tab 5 Mg PO QAM 12/03/16 Reported Zantac (Ranitidine HCl) 300 Mg Tab 300 Mg PO HS 07/07/16 Reported Prilosec (Omeprazole) 20 Mg Capcr 20 Mg PO BID 07/07/16 Reported Lasix (Furosemide) 20 Mg Tab 20 Mg PO QAM 07/07/16 Reported Cranberry (Cranberry (Vaccinium Macrocarp) 300 Mg Tab 300 Mg PO TID 07/07/16 Reported Vitamin B-12 (Cyanocobalamin) 100 Mcg Tab 100 Mcg PO DAILY 07/07/16 Reported Neurontin (Gabapentin) 300 Mg Cap 300 Mg PO TID 07/07/16 Reported Multivitamin (Multivitamins) Tab 1 Tab PO QPM 04/22/15 Reported Neomycin/Polymyxin/Hc (Gxcwchcz-Kjcufuspu-Mi (Otic)) 1 Nat Nat 1 Drops OTB 2XWK 05/24/14 Reported Lithobid Ext Rel (Tenafly Carbonate) 450 Mg Tabcr 450 Mg PO QPM 05/24/14 Reported 2100 Pravastatin Sodium 80 Mg Tab 80 Mg PO HS 05/24/14 Reported Atenolol 50 Mg Tab 50 Mg PO QAM 05/24/14 Reported Cozaar (Losartan Potassium) 100 Mg Tab 100 Mg PO QAM 05/24/14 Reported Levothyroxine Sodium 125 Mcg Tab 125 Mcg PO QAM 02/04/13 Reported Ultram (Tramadol Hcl) 50 Mg Tab 50-100 Mg PO TID PRN 02/04/13 Reported NEEDED FOR PAIN. Ecotrin Or Generic (Aspirin) 81 Mg Tab 81 Mg PO QAM 11/17/11 Reported Vital Signs Weight (Kilograms): 86.36 Height (Feet): 5 Height (Inches): 8 Physical Exam General Appearance: no apparent distress Respiratory/Chest: Auscultation: breath sounds normal Cardiovascular: Heart Auscultation: RRR Abdomen: Inspection & Palpation: soft Liver: non-tender Assessment and Plan Stable for EGD with [facility] PH
--- NOTE | 2017-07-06 10:54 | GI REPORT ---
Procedure Date: 07/06/2017 10:00 AM Procedure: Upper GI endoscopy Indications: Follow-up of gastro-esophageal reflux disease Medicines: Monitored Anesthesia Care Complications: No immediate complications. Estimated Blood Loss: Estimated blood loss: none. Procedure: Pre-Anesthesia Assessment: - Prior to the procedure, a History and Physical was performed, and patient medications and allergies were reviewed. The patient is competent. The risks and benefits of the procedure and the sedation options and risks were discussed with the patient. All questions were answered and informed consent was obtained. Patient identification and proposed procedure were verified by the physician and the nurse in the procedure room. Mental Status Examination: alert and oriented. Respiratory Examination: clear to auscultation. CV Examination: normal. ASA Grade Assessment: II - A patient with mild systemic disease. After reviewing the risks and benefits, the patient was deemed in satisfactory condition to undergo the procedure. The anesthesia plan was to use monitored anesthesia care (MAC). Immediately prior to administration of medications, the patient was re-assessed for adequacy to receive sedatives. The heart rate, respiratory rate, oxygen saturations, blood pressure, adequacy of pulmonary ventilation, and response to care were monitored throughout the procedure. The physical status of the patient was re-assessed after the procedure. After obtaining informed consent, the endoscope was passed under direct vision. Throughout the procedure, the patient's blood pressure, pulse, and oxygen saturations were monitored continuously. The scope was introduced through the mouth, and advanced to the second part of duodenum. The upper GI endoscopy was accomplished without difficulty. The patient tolerated the procedure well. Findings: The examined esophagus was normal. The Z-line was regular and was found 36 cm from the incisors. The KAT capsule with delivery system was introduced through the mouth and advanced into the esophagus, such that the KAT pH capsule was positioned 30 cm from the incisors, which was 6 cm proximal to the GE junction. Suction was applied to the well of the KAT pH capsule to suck in the adjacent mucosa of the esophagus using the external vacuum pump set at a minimum vacuum pressure of 560 mmHg for 30 seconds. The KAT pH capsule was then deployed by depressing the plunger on top of the handle to advance the locking pin into the mucosa, thereby attaching the capsule to the esophagus. The plunger was then rotated a quarter turn clockwise to release the capsule from the delivery system. The delivery system was then withdrawn. Endoscopy was utilized for probe placement and diagnostic evaluation. The entire examined stomach was normal. The duodenal bulb and second portion of the duodenum were normal. Impression: - Normal esophagus. - Normal stomach. - Normal duodenal bulb and second portion of the duodenum. - The KAT pH capsule was positioned 30 cm from the incisors, which was 6 cm proximal to the GE junction. - No specimens collected. Recommendation: - Discharge patient to home. - Return the Kat PH reciever on afternoon. - Return to referring physician. Junior Us MD 07/06/2017 10:53:36 AM This report has been signed electronically. Note Initiated On: 07/06/2017 10:00 AM I attest to the content of the Intraoperative Record and orders documented therein, exceptions below
--- NOTE | 2017-07-06 11:00 | Discharge Instructions ---
Endoscopy Patient Instructions Date / Procedure(s) Performed Jul 06, 2017. EGD Allergy Information Coded Allergies: Baclofen (Verified Allergy, Severe, NEURO SYMPTOMS, 07/06/17) Ciprofloxacin (Verified Allergy, Severe, HIVES, 07/06/17) Morphine (Verified Allergy, Severe, DELIRIUM, 07/06/17) Metronidazole (Verified Allergy, Intermediate, hives, 07/06/17) Sulfa Antibiotics (Verified Allergy, Intermediate, HIVES, 07/06/17) Quinolones (Verified Allergy, Mild, CIPRO, 07/06/17) Zolpidem (Verified Adverse Reaction, Mild, delusions, 07/06/17) HALLUCINATIONS Pantoprazole (Verified Adverse Reaction, Unknown, migraines, 07/06/17) Discharge Date / Findings Jul 06, 2017. Normal esophagus, Stomach and duodenum. Yuen PH capsule placed. Medication Instructions Stopped Medication(s): ONLY TAKE BP MEDS SYNTHROID LITHIUM STOP ALL OTHERS Provider Instructions Activity Restrictions - No exercising or heavy lifting for 24 hours. - Do not drink alcohol the day of the procedure. - Do not drive a car or operate machinery until the day after the procedure. - Do not make any important decisions or sign important papers in 24 hours after the procedure. Following Day: - Return to full activity which may include returning to work/school. Diet Start your diet with liquids and light foods (jello, soup, juice, toast). Then eat your usual diet if not nauseated. Treatment For Common After Affects For mild abdominal pain, bloating, or excessive gas: - Rest - Eat lightly - Lie on right side Follow-Up Information Follow-up with DR. GUAJARDO as scheduled Anesthesia Information What You Should Know You have had a procedure that required some medicine to reduce anxiety and discomfort. This treatment is called moderate sedation. After receiving the treatment, you may be sleepy, but you will be able to breathe on your own. The effects of the treatment may last for several hours. Follow these instructions along with Activity/Diet recommendations noted above: * Do NOT do anything where dizziness or clumsiness would be dangerous. * Rest quietly at home today, then you can be up and about tomorrow. * Have a responsible person stay with you the rest of today. * You may have had an I.V. today. If so, you may take the dressing off later today. Recommendations Call your doctor if: * Trouble breathing * Continuous vomiting for more than 24 hours * Temperature above 101 degrees * Severe abdominal pain or bloating * Pain not relieved by pain medicine ordered * There is increased drainage or redness from any incision * A large amount of rectal bleeding greater than 2-3 tablespoons. (If you had a polyp/s removed or have hemorrhoids, a small amount of blood - from the rectum is to be expected.) * You have any unanswered questions or concerns. IN THE EVENT OF A SERIOUS EMERGENCY, GO TO THE NEAREST EMERGENCY ROOM Your discharge instructions were prepared by provider Junior Us. Patient Instructions Signature Page Mary Dyer Patient (or Guardian) Signature/Date: I have read and understand the instructions given to me by my caregivers. Caregiver/RN/Doctor Signature/Date: The above-named patient and/or guardian has received patient instructions on this date. + Original Patient Signature Page (only) stays with chart. Please make copy for patient.
--- NOTE | 2017-07-06 11:28 | Anesthesiology Progress Note ---
Anesthesia Post Op Note Date & Time Jul 06, 2017 at 11:28 Vital Signs Vital Signs Past 12 Hours Date Time Temp Pulse Resp B/P (MAP) Pulse Ox O2 Delivery O2 Flow Rate FiO2 07/06/17 11:10 65 20 139/56 (83) 97 Room Air 07/06/17 10:56 67 20 135/72 (93) 98 Room Air 07/06/17 10:08 37.1 70 20 162/84 (110) 97 Room Air Notes Mental Status: alert / awake / arousable, participated in evaluation Pt Amnestic to Procedure: Yes Nausea / Vomiting: adequately controlled Pain: adequately controlled Airway Patency, RR, SpO2: stable & adequate BP & HR: stable & adequate Hydration State: stable & adequate Anesthetic Complications: no major complications apparent
[2017-07-06 11:42] VITALS: BP 144/77; PULSE 62; O2SAT 98
== END | disposition home or self-care (01) ==
LOC: C.GI 09:12
PROVIDERS: ATTEND Student in an Organized Health Care Education/Training Program
DX: K21.9 Gastro-esophageal reflux disease without esophagitis (principal); M19.90 Unspecified osteoarthritis, unspecified site; F41.9 Anxiety disorder, unspecified; E78.00 Pure hypercholesterolemia, unspecified; I10 Essential (primary) hypertension; F32.9 Major depressive disorder, single episode, unspecified; E07.9 Disorder of thyroid, unspecified; Z86.73 Personal history of transient ischemic attack (TIA), and cerebral infarction without residual deficits; Z88.1 Allergy status to other antibiotic agents; Z88.2 Allergy status to sulfonamides; Z88.8 Allergy status to other drugs, medicaments and biological substances; Z88.5 Allergy status to narcotic agent; Z96.653 Presence of artificial knee joint, bilateral; Z79.899 Other long term (current) drug therapy

== ENCOUNTER 2017-07-29 20:49 | Emergency (ER) | payer OTHER, MEDICARE ==
[~2017-07-29] VITALS: Ht 170.2 cm; Wt 88.1 kg
[~2017-07-29 20:49] MED LIST changes: +ASPI-319 PO; -ASPI81TA21 PO; -LIDOCAINE HCL 2% 2 ML VIAL (20MG/ML) ONE; -PROPOFOL IV EMULSION 10 MG/ML 20 ML VIAL IV ONE; -SODIUM CHLORIDE 0.9% 500ML 500 ML IV ONE
[2017-07-29 20:57] VITALS: TEMP 36.9; Ht 170.2 cm; Wt 88.1 kg
[2017-07-29] MEDS ORDERED: CEFTRIAXONE SOD INJ 1 GM ADDVIAL IV STA (22:02)
[2017-07-29] MEDS ORDERED: SODIUM CHLORIDE 0.9% 1000ML 1,000 ML IV ONE (22:15)
--- NOTE | 2017-07-29 22:32 | DIAGNOSTIC IMAGING REPORT ---
L HAND MIN 3 VIEWS ROUTINE HISTORY: 72 years-old Female left 3rd digit pain/swelling acute pain and swelling of the left third finger COMPARISON: None available TECHNIQUE: 3 views of the left hand FINDINGS: The bones are mildly demineralized. No acute fracture or dislocation identified. Multifocal degenerative changes are noted with moderate radiocarpal, first carpometacarpal and first through third metacarpophalangeal degenerative changes. At least mild multidigit interphalangeal joint space narrowing with subchondral sclerosis and marginal spurring. Probable chondrocalcinosis within the region of the TFCC. No opaque foreign body. IMPRESSION: 1. No acute fracture or dislocation. 2. Degenerative changes as above. The above report was generated using voice recognition software. It may contain grammatical, syntax or spelling errors. Electronically signed by: Ho Carroll M.D. 07/29/2017 10:31 PM Dictated Date/Time: 07/29/2017 10:29 PM
[2017-07-29 22:52] LABS: HEMATOCRIT 41.3 % (37-47); HEMOGLOBIN 14.1 g/dL (12.0-16.0); IG# 0.02 K/uL (0.00-0.02); LYMPH ABS # 1.43 K/uL (1.2-3.4); MEAN CELL VOLUME 86.9 fL (80-100); MEAN CORPUSCULAR HEMOGLOBIN 29.7 pg (25-34); MEAN CORPUSCULAR HGB CONC 34.1 g/dl (32-36); MEAN PLATELET VOLUME 8.8 fL (7.4-10.4); MONO % 7.5 %; MONO ABS # 0.41 K/uL (0.11-0.59); NEUT % 66.1 %; NEUT ABS # 3.63 K/uL (1.4-6.5); PLATELET COUNT 282 K/uL (130-400); RED CELL DISTRIBUTION WIDTH CV 14.6 % (11.5-14.5); RED CELL DISTRIBUTION WIDTH SD 46.6 fL (36.4-46.3); WHITE BLOOD COUNT 5.49 K/uL (4.8-10.8)
[2017-07-29 23:13] LABS: ALBUMIN 3.8 gm/dl (3.4-5.0); CALCIUM 9.3 mg/dl (8.5-10.1); CREATININE 0.86 mg/dl (0.60-1.20); POTASSIUM 3.4 mmol/L (3.5-5.1)
[2017-07-29 23:20] LABS: TOTAL PROTEIN 7.2 gm/dl (6.4-8.2); URIC ACID 5.3 mg/dl (2.6-7.2)
--- NOTE | 2017-07-30 00:15 | EMERGENCY ROOM VISIT NOTE ---
ED Visit Note First contact with patient: 21:56 Patient was seen by our PA/IT SERVICE TECHNICIAN. I was involved in the patient's care and did evaluate the patient myself. I was involved in the care throughout the ER stay. The patient presents with left third finger bruising and redness. She does have a history of lymphedema in the left upper extremity. Patient appears to have a possible contusion, possibly an early cellulitis to the finger. Laboratory testing was essentially unrevealing, ultrasound of the left upper extremity will be performed to rule out DVT.
[2017-07-30] MEDS ORDERED: CEPH500C PO (01:30)
[2017-07-30 01:37] VITALS: BP 169/83; PULSE 69; O2SAT 96
--- NOTE | 2017-07-30 06:08 | EMERGENCY ROOM VISIT NOTE ---
History First contact with patient: 21:56 Chief Complaint: FINGER PAIN Stated Complaint: MIDDLE FINGER, LEFT HAND TURNING BLACK History of Present Illness The patient is a 72 year old female who presents to the Emergency Room with complaints of swelling and discoloration of her left third finger. The patient does not report injury or trauma to the finger. She states that her symptoms have been slowly worsening over the past 5 or 6 hours, and now she has difficulty bending the finger. She does not have numbness or paresthesias. The patient is concerned because she has a history of cancer and subsequent chronic lymphedema in this left arm. The patient has not had fever or chills. She does report some redness along the inside of the finger. She has not taken anything [id number] for her symptoms, and rates her current discomfort a 5 /10. Review of Systems More than 10 systems were reviewed and otherwise negative with the exception of history of present illness. Past Medical/Surgical History Medical Problems: (1) Anxiety (2) Aspiration pneumonia (3) Cerebrovascular disease (4) Depression (5) Fatty liver (6) GERD (gastroesophageal reflux disease) (7) History of bipolar disorder (8) History of breast cancer (9) History of TIA (transient ischemic attack) (10) Hyperlipidemia (11) Hypertension (12) Hypothyroidism (13) Lumbar stenosis with neurogenic claudication (14) Lymphedema Surgical Problems: (1) H/O colonoscopy (2) H/O cystoscopy (3) History of cataract surgery (4) History of cervical hemilaminectomy (5) History of left breast nipple exploration and ductal excision (6) History of lymph node dissection of left axilla (7) Status post lumbar surgery (8) Status post total left knee replacement Family History Diabetes mellitus FH: cancer Gallbladder disease Hypertension Social History Smoking Status: Never Smoker Alcohol Use: none Marital Status: Housing Status: lives with significant other Occupation Status: disabled Current/Historical Medications Scheduled Amlodipine (Norvasc), 5 MG PO QAM Artificial Tear Solution (Soothe Xp), 1 DROP OPB BID Ascorbic Acid (Vitamin C), 500 MG PO BID Aspirin Enteric Coated (Ecotrin Or Generic), 81 MG PO QAM Atenolol (Atenolol), 50 MG PO QAM Calcium Carbonate-Vitamin D (Calcium), 1 TAB PO DAILY Celecoxib (CeleBREX), 200 MG PO QPM Cephalexin Monohydrate (Keflex), 500 MG PO TID Cranberry (Vaccinium Macrocarp (Cranberry), 300 MG PO TID Cyanocobalamin (Vitamin B-12), 100 MCG PO DAILY Fluticasone Propionate (Nasal) (Flonase Allergy Relief), 2 SPRAYS ALLI AMPM Furosemide (Lasix), 20 MG PO QAM Gabapentin (Neurontin), 300 MG PO TID Ipratropium [place] (Nasal) (Ipratropium [place]), 2 SPRAY NA TID Lamotrigine (Lamictal), 150 MG PO AMPM Levothyroxine Sodium (Levothyroxine Sodium), 125 MCG PO QAM [place] Carbonate Ext Rel (Lithobid Ext Rel), 450 MG PO QPM Losartan Potassium (Cozaar), 100 MG PO QAM Mirtazapine Soltab (Remeron Soltab), 15 MG PO HS Montelukast Sodium (Singulair Chewable), 5 MG PO HS Multivitamin (Multivitamin), 1 TAB PO QPM Nhpzieqg-Xqpfuaprt-Mb (Otic) (Neomycin/Polymyxin/Hc), 1 DROPS OTB 2XWK Omeprazole (Prilosec), 20 MG PO BID Pravastatin Sodium (Pravastatin Sodium), 80 MG PO HS Probiotic Product (Probiotic), 1 TAB PO BID Ranitidine (Zantac), 300 MG PO HS Trazodone Hcl (Trazodone), 200 MG PO HS Scheduled PRN Dicyclomine Hcl (Dicyclomine Hcl), 1 TAB PO QID PRN for ABDOMINAL PAIN Lorazepam (Ativan), 0.5-1 MG PO Q6H PRN for Anxiety/Agitation Meclizine Hcl (Meclizine Hcl), 50 MG PO TID PRN for Nausea Ondansetron Hcl (Zofran), 8 MG PO Q8 PRN for Nausea Pilocarpine (Salagen), 5 MG PO QID PRN for DRYNESS Promethazine Hcl (Phenergan), 25 MG PO Q6H PRN for Nausea Tramadol Hcl (Ultram), 50-100 MG PO TID PRN for Pain Physical Exam Vital Signs Date Time Temp Pulse Resp B/P (MAP) Pulse Ox O2 Delivery O2 Flow Rate FiO2 07/30/17 01:37 69 18 169/83 96 07/30/17 01:13 69 18 174/93 96 Room Air 07/29/17 22:48 68 16 143/89 98 Room Air 07/29/17 20:57 36.9 77 18 163/94 94 Room Air Physical Exam VITALS: Vitals are noted on the nurse's note and reviewed by myself. Vital signs stable. GENERAL: Well-developed, well-nourished, white female, who is in no acute distress and resting comfortably. Patient is cooperative with the examination. HEART: Regular rate and rhythm without murmurs gallops or rubs. LUNGS: Clear to auscultation bilaterally without wheezes, rales or rhonchi. No retractions or accessory muscle use. MUSCULOSKELETAL: Ecchymosis and edema is appreciated along the most proximal aspect of the left third digit. There is some erythema along the mid phalanges on the medial aspect without purulence. The distal aspect is with no significant findings. Neurovascular status is intact. Patient is unable to flex or extend at the proximal joint. No lymphangitic streaking noted. The left upper extremity is with some lymphedema, but no palpable cord. NEURO: Patient was alert and oriented to person place and time. CN II through XII grossly intact. Medical Decision & Procedures ER Provider Diagnostic Interpretation: Preliminary Findings Only See Final Report For Complete Findings US VENOUS LEFT UPPER EXTREMITY: No left arm venous thrombosis L HAND MIN 3 VIEWS ROUTINE HISTORY: 72 years-old Female left 3rd digit pain/swelling acute pain and swelling of the left third finger COMPARISON: None available TECHNIQUE: 3 views of the left hand FINDINGS: The bones are mildly demineralized. No acute fracture or dislocation identified. Multifocal degenerative changes are noted with moderate radiocarpal, first carpometacarpal and first through third metacarpophalangeal degenerative changes. At least mild multidigit interphalangeal joint space narrowing with subchondral sclerosis and marginal spurring. Probable chondrocalcinosis within the region of the TFCC. No opaque foreign body. IMPRESSION: 1. No acute fracture or dislocation. 2. Degenerative changes as above. Laboratory Results 07/29/17 22:30 Red Blood Count 4.75, Mean Corpuscular Volume 86.9, Mean Corpuscular Hemoglobin 29.7, Mean Corpuscular Hemoglobin Concent 34.1, Mean Platelet Volume 8.8, Neutrophils (%) (Auto) 66.1, Lymphocytes (%) (Auto) 26.0, Monocytes (%) (Auto) 7.5, Eosinophils (%) (Auto) 0.0, Basophils (%) (Auto) 0.0, Neutrophils # (Auto) 3.63, Lymphocytes # (Auto) 1.43, Monocytes # (Auto) 0.41, Eosinophils # (Auto) 0.00, Basophils # (Auto) 0.00 07/29/17 22:30 Test 07/29/17 22:30 White Blood Count 5.49 K/uL (4.8-10.8) Red Blood Count 4.75 M/uL (4.2-5.4) Hemoglobin 14.1 g/dL (12.0-16.0) Hematocrit 41.3 % (37-47) Mean Corpuscular Volume 86.9 fL (80-100) Mean Corpuscular Hemoglobin 29.7 pg (25-34) Mean Corpuscular Hemoglobin Concent 34.1 g/dl (32-36) Platelet Count 282 K/uL (130-400) Mean Platelet Volume 8.8 fL (7.4-10.4) Neutrophils (%) (Auto) 66.1 % Lymphocytes (%) (Auto) 26.0 % Monocytes (%) (Auto) 7.5 % Eosinophils (%) (Auto) 0.0 % Basophils (%) (Auto) 0.0 % Neutrophils # (Auto) 3.63 K/uL (1.4-6.5) Lymphocytes # (Auto) 1.43 K/uL (1.2-3.4) Monocytes # (Auto) 0.41 K/uL (0.11-0.59) Eosinophils # (Auto) 0.00 K/uL (0-0.5) Basophils # (Auto) 0.00 K/uL (0-0.2) RDW Standard Deviation 46.6 fL (36.4-46.3) RDW Coefficient of Variation 14.6 % (11.5-14.5) Immature Granulocyte % (Auto) 0.4 % Immature Granulocyte # (Auto) 0.02 K/uL (0.00-0.02) Erythrocyte Sedimentation Rate 25 mm/hr (0-21) Anion Gap 6.0 mmol/L (3-11) Est Creatinine Clear Calc Drug Dose 69.4 ml/min Estimated GFR () 79.3 Estimated GFR (Non- 68.4 BUN/Creatinine Ratio 10.4 (10-20) Uric Acid 5.3 mg/dl (2.6-7.2) Calcium Level 9.3 mg/dl (8.5-10.1) Total Bilirubin 0.4 mg/dl (0.2-1) Aspartate Amino Transf (AST/SGOT) 12 U/L (15-37) Alanine Aminotransferase (ALT/SGPT) 25 U/L (12-78) Alkaline Phosphatase 95 U/L (45-117) C-Reactive Protein 0.82 mg/dl (0-0.29) Total Protein 7.2 gm/dl (6.4-8.2) Albumin 3.8 gm/dl (3.4-5.0) Globulin 3.4 gm/dl (2.5-4.0) Albumin/Globulin Ratio 1.1 (0.9-2) Lyme Disease IgG Antibody NEG (NEG) Medications Administered Medications (Trade) Dose Ordered Sig/Chava Route Start Time Stop Time Status Last Admin Dose Admin Ceftriaxone Sodium (Rocephin Inj) 1 gm NOW STAT IV 07/29/17 22:02 07/29/17 22:05 DC 07/29/17 22:37 1 GM Sodium Chloride 1,000 ml @ 999 mls/hr Q1H1M ONCE IV 07/29/17 22:15 07/29/17 23:15 DC 07/29/17 22:38 999 MLS/HR ED Course Physical exam and history were performed. Nursing notes, EMR, and Medication List were personally reviewed. Patient appears to have discoloration and pain in her left third finger that began spontaneously about 5 or 6 hours prior to arrival. There is no trauma to explain her symptoms. IV access was established and labs were obtained. Of concern for infection the patient was given a dose of Rocephin empirically. X- ray was obtained. The patient's blood work is as above and was reviewed. She does not have a significantly elevated white blood cell count, gross anemia, bandemia, or significant electrolyte imbalance. Her inflammatory markers are minimally elevated. Uric acid is negative. Her Lyme is equivocal with confirmation pending. X-ray was reviewed by myself and radiology showing no acute process. The patient was discussed with my attending physician, Dr. Solis, who also independently evaluated the patient. After evaluation and discussion we elected to perform an ultrasound of the left upper arm to rule out DVT. Ultrasound is as above and does not show acute process. Overall the patient appears well for discharge home. She may have an early infection of this finger causing her discomfort. The patient has allergies to multiple antibiotics, but has evidently done okay with Keflex in the past. She will be started on this medication. If her Lyme returns positive in the next few days she will need transition to an alternative treatment. The patient is to follow with her primary care physician for further care management. She was otherwise went back to the ER with any new, worsening, or concerning symptoms. The chart was completed utilizing [employer] Speech Voice Recognition Software. Grammatical errors, random word insertions, pronoun errors, and incomplete sentences are an occasional consequence of this system due to software limitations, ambient noise, and hardware issues. Any formal questions or concerns about the content, text, or information contained within the body of this dictation should be directly addressed to the provider for clarification. . Medical Decision Differential diagnosis: Etiologies such as cellulitis, abscess, MRSA infection, DVT, necrotizing fasciitis, dermatitis, drug eruption, as well as others were entertained.. Impression Primary Impression: Finger pain, left Departure Information Dispostion Home / Self-Care Condition GOOD Prescriptions Cephalexin Monohydrate (Keflex) 500 Mg Cap 500 MG PO TID for 10 Days, #30 CAP Prov: Asad Hope PA-C 07/30/17 Forms HOME CARE DOCUMENTATION FORM, IMPORTANT VISIT INFORMATION Patient Instructions My [facility] Additional Instructions You were seen and evaluated today on an emergency basis only. This is not a substitute for, or an effort to provide, complete comprehensive medical care. It is not possible to recognize and treat all injuries or illnesses in a single emergency department visit. For this reason it is recommended that you followup with your primary care physician next week for recheck of your condition. Cephalexin(Keflex) 500mg: Take one pill 3 times daily for 10 days for your skin infection. All antibiotics can cause diarrhea. If this occurs and you feel worse or it does not resolve in 1-2 days follow up with your doctor or return to the Emergency Department as this could be signs of serious underlying problems. Any medication can cause an allergic reaction, stop the pills immediately and return to the ER for rash, hives, breathing difficulties, or swelling. You are welcome to return to the emergency department anytime with new, worsening, or concerning symptoms.
--- NOTE | 2017-07-30 07:15 | DIAGNOSTIC IMAGING REPORT ---
L VENOUS DOPPLER UPR EXT UNIL CLINICAL HISTORY: 72 years-old Female presenting with Left arm swelling. TECHNIQUE: Real-time grayscale and color and spectral Doppler ultrasound imaging of the veins of the left upper extremity was performed. Compression and augmentation were also utilized. COMPARISON: 12/03/2016. FINDINGS: Left: Internal jugular vein: Patent. Subclavian vein: Patent. Axillary vein: Patent. Brachial vein: Patent. Basilic vein (superficial): Patent. Cephalic vein (superficial): Patent. Radial vein: Patent. Ulnar vein: Patent. Other: None. IMPRESSION: No evidence of deep venous thrombosis. Electronically signed by: Josué Cardenas M.D. 07/30/2017 7:13 AM Dictated Date/Time: 07/30/2017 7:12 AM
== END 2017-07-30 01:38 | disposition home or self-care (01) ==
LOC: C.EDB 20:50
DX: M79.645 Pain in left finger(s) (principal); I67.9 Cerebrovascular disease, unspecified; K21.9 Gastro-esophageal reflux disease without esophagitis; E78.5 Hyperlipidemia, unspecified; I10 Essential (primary) hypertension; Z79.899 Other long term (current) drug therapy

== ENCOUNTER 2017-08-30 15:01 | Emergency (ER) | payer OTHER, MEDICARE ==
[~2017-08-30] VITALS: Ht 171.5 cm; Wt 90.0 kg
[~2017-08-30 15:01] MED LIST changes: -ATV/1 PO; -DICY20TA10 PO; -IPRA0.03; -LITH1TAB PO; -LMC/150 PO; -LOSA100T65 PO; -MONT1CHW6 PO; -NEOM1SOL25 OTB; -NITR-5 PO; -PILO5TAB10 PO; -PRAV80TA2 PO; -TNR50 PO
[2017-08-30 15:04] VITALS: TEMP 36.8; Ht 171.5 cm; Wt 90.0 kg
[2017-08-30] MEDS ORDERED: OXYCODONE/ACETAMINOPHEN 5-325 TAB PO STA (15:21)
--- NOTE | 2017-08-30 15:33 | EMERGENCY ROOM VISIT NOTE ---
History First contact with patient: 15:08 Chief Complaint: HEAD INJURY (MINOR) Stated Complaint: CHAIR BROKE, HIT HEAD History of Present Illness The patient is a 72 year old female who presents to the Emergency Room with complaints of a fall prior to arrival. The patient was sitting on a folding chair, when it collapsed. She fell landing on her right side and striking the right side of her head off of the ground. There is no loss of consciousness. She denies any dizziness, changes in vision or vomiting. She is having some mild neck pain. The patient is also complaining of right hip pain. She has not taken anything for pain. She denies any pain in her chest, difficulty breathing or abdominal pain. The patient takes a baby aspirin daily. No other anticoagulants. Review of Systems 10 system review performed and negative unless noted in HPI or below Past Medical/Surgical History Medical Problems: (1) Anxiety (2) Aspiration pneumonia (3) Cerebrovascular disease (4) Depression (5) Fatty liver (6) GERD (gastroesophageal reflux disease) (7) History of bipolar disorder (8) History of breast cancer (9) History of TIA (transient ischemic attack) (10) Hyperlipidemia (11) Hypertension (12) Hypothyroidism (13) Lumbar stenosis with neurogenic claudication (14) Lymphedema Surgical Problems: (1) H/O colonoscopy (2) H/O cystoscopy (3) History of cataract surgery (4) History of cervical hemilaminectomy (5) History of left breast nipple exploration and ductal excision (6) History of lymph node dissection of left axilla (7) Status post lumbar surgery (8) Status post total left knee replacement Family History Diabetes mellitus FH: cancer Gallbladder disease Hypertension Social History Smoking Status: Never Smoker Alcohol Use: none Marital Status: Housing Status: lives with significant other Occupation Status: disabled Current/Historical Medications Scheduled Amlodipine (Norvasc), 5 MG PO QAM Artificial Tear Solution (Soothe Xp), 1 DROP OPB BID Ascorbic Acid (Vitamin C), 500 MG PO BID Aspirin Enteric Coated (Ecotrin Or Generic), 81 MG PO QAM Atenolol (Atenolol), 50 MG PO QAM Calcium Carbonate-Vitamin D (Calcium), 1 TAB PO DAILY Cranberry (Vaccinium Macrocarp (Cranberry), 300 MG PO TID Cyanocobalamin (Vitamin B-12), 100 MCG PO DAILY Fluticasone Propionate (Nasal) (Flonase Allergy Relief), 2 SPRAYS ALLI AMPM Furosemide (Lasix), 20 MG PO QAM Gabapentin (Neurontin), 300 MG PO TID Ipratropium [place] (Nasal) (Ipratropium [place]), 2 SPRAY NA BID Lamotrigine (Lamictal), 150 MG PO AMPM Levothyroxine Sodium (Levothyroxine Sodium), 125 MCG PO QAM [place] Carbonate Ext Rel (Lithobid Ext Rel), 450 MG PO QPM Losartan Potassium (Cozaar), 100 MG PO QAM Montelukast Sodium (Singulair Chewable), 5 MG PO HS Multivitamin (Multivitamin), 1 TAB PO QPM Jiyujovx-Lfwliuqsc-Ib (Otic) (Neomycin/Polymyxin/Hc), 1 DROPS OTB 2XWK Omeprazole (Prilosec), 20 MG PO BID Pravastatin Sodium (Pravastatin Sodium), 80 MG PO HS Probiotic Product (Probiotic), 1 TAB PO BID Trazodone Hcl (Trazodone), 200 MG PO HS Scheduled PRN Dicyclomine Hcl (Dicyclomine Hcl), 1 TAB PO QID PRN for ABDOMINAL PAIN Lorazepam (Ativan), 0.5-1 MG PO Q6H PRN for Anxiety/Agitation Meclizine Hcl (Meclizine Hcl), 50 MG PO TID PRN for Nausea Ondansetron Hcl (Zofran), 8 MG PO Q8 PRN for Nausea Oxycodone/Acetaminophen 5MG/325MG (Percocet 5MG/325MG), 1 TAB PO Q4H PRN for Pain Pilocarpine ([place]), 5 MG PO QID PRN for DRYNESS Promethazine Hcl (Phenergan), 25 MG PO Q6H PRN for Nausea Ranitidine (Zantac), 300 MG PO HS PRN for ACID REFLUX Tramadol Hcl (Ultram), 50-100 MG PO TID PRN for Pain Physical Exam Vital Signs Date Time Temp Pulse Resp B/P (MAP) Pulse Ox O2 Delivery O2 Flow Rate FiO2 08/30/17 17:27 82 18 148/105 94 08/30/17 17:00 75 20 96 Room Air 08/30/17 15:04 36.8 79 20 150/90 94 Room Air Physical Exam VITALS: Vitals are noted on the nurse's note and reviewed by myself. Vital signs stable. GENERAL: 72-year-old female, in no acute distress, nondiaphoretic, well- developed well-nourished. SKIN: Minor abrasion over the right frontal bone. Hematoma in the area. HEAD: Approximately 3 cm hematoma noted over the right frontal bone. EARS: External auditory canals clear, tympanic membranes pearly avila without erythema or effusion bilaterally. No hemotympanum noted. EYES: Pupils equal round and reactive to light and accommodation. Conjunctivae without injection, sclerae without icterus. Extraocular movements intact. NOSE: No trauma noted to the nose/nasal bridge MOUTH: Mucous membranes moist. Tonsils are not enlarged. Pharynx without erythema or exudate. Uvula midline. Airway patent. Tongue does not deviate. NECK: Minor pain with active range of motion of the neck. Pain over the right trapezius muscle. HEART: Regular rate and rhythm without murmurs gallops or rubs. No tenderness over the thorax LUNGS: Clear to auscultation bilaterally without wheezes, rales or rhonchi. No accessory muscle use. ABDOMEN: Positive bowel sounds x 4.Soft, nontender, without organomegaly. No guarding or rebound tenderness. MUSCULOSKELETAL: No muscle atrophy, erythema, or edema noted. Mild tenderness to palpation over the right lateral hip. Mild pain with passive flexion of the right hip. No tenderness noted over the spinous processes throughout the spine. No tenderness over the SI joint. Negative straight leg test bilaterally.. Strength 5/5 throughout. NEURO: Patient was alert and oriented to person place and time. Normal sensation to touch. Cerebellar function intact. Cranial nerves grossly intact. No focal neurological deficits. Medical Decision & Procedures ER Provider Diagnostic Interpretation: Cervical spine CT IMPRESSION: No acute cervical spine fracture or subluxation. The above report was generated using voice recognition software. It may contain grammatical, syntax or spelling errors. Electronically signed by: Ho Carroll M.D. 08/30/2017 3:59 PM Dictated Date/Time: 08/30/2017 3:[address] IMPRESSION: 1. No acute intracranial abnormality. 2. Right frontal soft tissue hematoma without opaque foreign body or calvarial fracture. The above report was generated using voice recognition software. It may contain grammatical, syntax or spelling errors. Electronically signed by: Ho Carroll M.D. 08/30/2017 3:54 PM Dictated Date/Time: 08/30/2017 3:[address] IMPRESSION: 1. No acute facial fracture. 2. Right supraorbital scalp contusion. Globes intact. No retrobulbar hematoma. Electronically signed by: Germain Rojo M.D. 08/30/2017 4:18 PM Dictated Date/Time: 08/30/2017 3:49 PM Right elbow x-ray IMPRESSION: No acute fracture or joint effusion of the right elbow. Electronically signed by: Germain Rojo M.D. 08/30/2017 4:47 PM Dictated Date/Time: 08/30/2017 4:47 PM Right hip x-ray IMPRESSION: 1. No acute fracture or dislocation of the right hip. 2. Moderate right hip osteoarthritis. Electronically signed by: Germain Rojo M.D. 08/30/2017 4:46 PM Dictated Date/Time: 08/30/2017 4:45 PM Medications Administered Medications (Trade) Dose Ordered Sig/Chava Route Start Time Stop Time Status Last Admin Dose Admin Oxycodone/ Acetaminophen (Percocet 5-325mg Tab) 1 tab NOW STAT PO 08/30/17 15:21 08/30/17 15:25 DC 08/30/17 15:35 1 TAB ED Course The patient was seen and examined She was medicated with Percocet for pain. She was put in a cervical collar. Imaging was performed and reviewed The patient was reassessed. Her pain was slightly improved. We discussed the results of her imaging. She voiced understanding, was comfortable being discharged home. The patient was also seen and examined by my supervising physician The wound on her face was cleansed with chlorhexidine and Neosporin Discharge instructions were reviewed, and she was discharged in good condition Medical Decision Differential diagnosis: Head trauma, bleed, facial fracture, spine injury, hip contusion, fracture, This patient is a 72-year-old female who presents to the emergency department with head trauma after a fall. On exam, she had a hematoma over the right frontal bone. She was neurologically intact. No signs of concussion besides a minor headache. Imaging was negative for any acute findings. The patient will be given a short course of Percocet for pain. She will follow-up with her primary care physician within the next 3-5 days for recheck, and agrees to return with any worsening symptoms This chart was completed in part utilizing [employer] Speech Voice Recognition software. Attempts were made to minimize the grammatical errors, random word insertions, pronoun errors and incomplete sentences. Any formal questions or concerns about the content, text or information contained within the body of this dictation should be directly addressed to the provider for clarification. Medication Reconcilliation Current Medication List: was personally reviewed by me Blood Pressure Screening Patient's blood pressure: Elevated blood pressure Blood pressure disposition: Elevated BP felt to be situational Impression Primary Impression: Fall Departure Information Dispostion Home / Self-Care Condition GOOD Prescriptions Oxycodone/Acetaminophen 5MG/325MG (PERCOCET 5MG/325MG) Tab 1 TAB PO Q4H Y for Pain, #12 TAB For Initial Treatment Prov: Esther Rincon PA-C 08/30/17 Referrals Tonie Rendon M.D. (PCP) Patient Instructions My [facility] Additional Instructions You have been evaluated in the emergency department after a fall. There were no signs of significant trauma on the imaging. Please take Tylenol 500 mg every 6 hours as needed for pain. Percocet 1 tab every 4 hours for severe pain. Do not drink alcohol or drive while taking this medication. Please avoid taking this medication with Tylenol as they both contain acetaminophen Please follow-up with your primary care physician within the next 3-5 days for recheck Please apply ice to the area on your forehead for 20 minute intervals over the next 48 hours to prevent further swelling Please cleanse the small wound on the face with soap and water twice daily and apply Neosporin for the first 2 days. It is okay to leave this open to air. Please do not hesitate to return to the emergency department with any new, worsening or concerning symptoms; especially, severe head pain, vomiting, severe dizziness or changes in vision
[2017-08-30] MEDS ORDERED: MONT1CHW6 PO (15:34)
[2017-08-30] MEDS ORDERED: DICY20TA10 PO (15:34)
[2017-08-30] MEDS ORDERED: IPRA0.03 (15:34)
--- NOTE | 2017-08-30 15:56 | DIAGNOSTIC IMAGING REPORT ---
HEAD WITHOUT CONTRAST (CT) CLINICAL HISTORY: 72 years-old Female with fall, head injury. Acute head injury status post fall TECHNIQUE: Multiple axial CT images of the head were obtained without contrast. A dose lowering technique was utilized adhering to the principles of ALARA. COMPARISON: CT maxillofacial same day, CT head 03/29/2017. FINDINGS: No acute intracranial hemorrhage, midline shift, intracranial mass, hydrocephalus, territorial ischemia or abnormal extra-axial collection. Minimal low-attenuation within the periventricular white matter suggests chronic microvascular ischemic changes. Cerebral vascular calcifications are seen at the level of the skull base. The calvarium is intact. The paranasal sinuses, mastoid air cells, and middle ear cavities are clear. Right frontal scalp hematoma measures 4.4 x 1.0 cm. Opaque foreign body. IMPRESSION: 1. No acute intracranial abnormality. 2. Right frontal soft tissue hematoma without opaque foreign body or calvarial fracture. The above report was generated using voice recognition software. It may contain grammatical, syntax or spelling errors. Electronically signed by: Ho Carroll M.D. 08/30/2017 3:54 PM Dictated Date/Time: 08/30/2017 3:50 PM
--- NOTE | 2017-08-30 16:01 | DIAGNOSTIC IMAGING REPORT ---
CERVICAL SPINE W/O CLINICAL HISTORY: 72 years-old Female with neck pain. Acute neck pain status post fall COMPARISON: CT cervical spine 11/24/2008 TECHNIQUE: Multiple axial CT images of the cervical spine were obtained without contrast. A dose lowering technique was utilized adhering to the principles of ALARA. FINDINGS: Postsurgical changes from prior anterior fusion with discectomy changes at C3-C5. Partial corpectomy changes noted involving the superior endplate of the 6. There is no evidence of hardware fracture or loosening. Alignment is satisfactory. The bones are mildly demineralized. Posterior elements appear intact. There is partial bony fusion involving multiple facet joints. Central canal and neuroforamina is better assessed by MRI. There is suggestion of multilevel foraminal stenosis. No definite high-grade central canal narrowing. Mastoid air cells are clear and the left. Trace right mastoid effusion. Degenerative changes with subcortical cystic change involving the left clavicular head. Lung apices appear clear. Soft tissues are unremarkable. IMPRESSION: No acute cervical spine fracture or subluxation. The above report was generated using voice recognition software. It may contain grammatical, syntax or spelling errors. Electronically signed by: Ho Carroll M.D. 08/30/2017 3:59 PM Dictated Date/Time: 08/30/2017 3:54 PM
--- NOTE | 2017-08-30 16:19 | DIAGNOSTIC IMAGING REPORT ---
MAXILLOFACIAL CT WITHOUT CONTRAST CLINICAL HISTORY: Trauma. Hematoma over right frontal bone. COMPARISON STUDY: Sinus CT May 06, 2013. TECHNIQUE: A maxillofacial CT was performed without IV contrast. Coronal and sagittal reformats were viewed. A dose lowering technique was utilized adhering to the principles of ALARA. FINDINGS: The head CT will be reported separately. Globes are intact. There is no retrobulbar hematoma. Alignment of the temporomandibular joints is anatomic. No acute facial fracture is present. A right supraorbital scalp contusion is present. Cervical spine CT will be reported separately. IMPRESSION: 1. No acute facial fracture. 2. Right supraorbital scalp contusion. Globes intact. No retrobulbar hematoma. Electronically signed by: Germain Rojo M.D. 08/30/2017 4:18 PM Dictated Date/Time: 08/30/2017 3:49 PM
[2017-08-30] MEDS ORDERED: PRAV80TA2 PO (16:25)
[2017-08-30] MEDS ORDERED: LOSA100T65 PO (16:25)
[2017-08-30] MEDS ORDERED: TNR50 PO (16:25)
--- NOTE | 2017-08-30 16:31 | EMERGENCY ROOM VISIT NOTE ---
ED Visit Note First contact with patient: 15:08 Staff note: I have reviewed the Patients chart and have discussed this case with my PA. I generally agree with the ED note and findings.
[2017-08-30] MEDS ORDERED: LITH1TAB PO (16:40)
--- NOTE | 2017-08-30 16:48 | DIAGNOSTIC IMAGING REPORT ---
R HIP UNILATERAL 2 VIEWS CLINICAL HISTORY: Right hip pain following fall to COMPARISON: Pelvis and right hip radiographs December 03, 2016. FINDINGS: Alignment of the right hip is anatomic. There is no acute fracture. There is mild to the right hip joint space narrowing. Moderate osteophytosis is noted. IMPRESSION: 1. No acute fracture or dislocation of the right hip. 2. Moderate right hip osteoarthritis. Electronically signed by: Germain Rojo M.D. 08/30/2017 4:46 PM Dictated Date/Time: 08/30/2017 4:45 PM
--- NOTE | 2017-08-30 16:49 | DIAGNOSTIC IMAGING REPORT ---
R ELBOW MIN 3 VIEWS ROUTINE CLINICAL HISTORY: Right elbow pain following fall. COMPARISON: None FINDINGS: Alignment of the right elbow is anatomic. No acute fracture or joint effusion is identified. IMPRESSION: No acute fracture or joint effusion of the right elbow. Electronically signed by: Germain Rojo M.D. 08/30/2017 4:47 PM Dictated Date/Time: 08/30/2017 4:47 PM
[2017-08-30] MEDS ORDERED: OXYC-57 PO (17:12)
[2017-08-30 17:27] VITALS: BP 148/105; PULSE 82; O2SAT 94
[2017-08-30] MEDS ORDERED: PILO5TAB10 PO (18:58)
[2017-08-30] MEDS ORDERED: NEOM1SOL25 OTB (20:21)
[2017-08-30] MEDS ORDERED: LMC/150 PO (23:41)
[2017-08-30] MEDS ORDERED: ATV/1 PO (23:41)
== END 2017-08-30 17:27 | disposition home or self-care (01) ==
LOC: C.EDB 15:03 → C.EDD 17:27
DX: S00.83XA Contusion of other part of head, initial encounter (principal); W07.XXXA Fall from chair, initial encounter; W22.8XXA Striking against or struck by other objects, initial encounter; I10 Essential (primary) hypertension; E03.9 Hypothyroidism, unspecified; E78.5 Hyperlipidemia, unspecified; K21.9 Gastro-esophageal reflux disease without esophagitis; F31.9 Bipolar disorder, unspecified; Z87.01 Personal history of pneumonia (recurrent); Z85.3 Personal history of malignant neoplasm of breast; Z86.73 Personal history of transient ischemic attack (TIA), and cerebral infarction without residual deficits; Z98.49 Cataract extraction status, unspecified eye; Z96.652 Presence of left artificial knee joint; Z98.890 Other specified postprocedural states; Z83.3 Family history of diabetes mellitus; Z82.49 Family history of ischemic heart disease and other diseases of the circulatory system; Z79.82 Long term (current) use of aspirin; Z79.899 Other long term (current) drug therapy

== ENCOUNTER 2020-02-08 19:38 | Observation (INO) ==
[2020-02-08 20:12] LABS: Hematocrit (blood only) 45.4 % (37-47); Hemoglobin 15.8 g/dL (12.0-16.0); Immature Granulocytes # (auto) 0.03 K/uL (0.00-0.02); Immature Granulocytes % (auto) 0.4 %; Lymphocytes # (auto) 1.78 K/uL (1.2-3.4); Lymphocytes % (auto) 21.7 %; Mean Corpuscular Hemoglobin 30.5 pg (25-34); Mean Corpuscular Hgb Conc 34.8 g/dL (32-36); Mean Corpuscular Volume 87.6 fL (80-100); Mean Platelet Volume 8.7 fL (7.4-10.4); Monocytes % (auto) 4.9 %; Neutrophils # (auto) 6.01 K/uL (1.4-6.5); Platelet Count 272 K/uL (130-400); RDW Coefficient of Variation 13.5 % (11.5-14.5); RDW Standard Deviation 43.3 fL (36.4-46.3); Red Blood Count 5.18 M/uL (4.2-5.4); White Blood Count 8.22 K/uL (4.8-10.8)
--- NOTE | 2020-02-08 20:12 | XRay Report ---
SINGLE VIEW CHEST CLINICAL HISTORY: Atypical chest pain. FINDINGS: An AP, portable, upright chest radiograph is compared to study dated 01/26/2018. The cardio mediastinal silhouette is unremarkable noting atherosclerotic calcification of the thoracic aorta. Ch ronic interstitial thickening is similar to previous. The lungs and pleural spaces are clear. No pneu mothorax is seen. The skeletal structures are osteopenic. The bony thorax is grossly intact. Degenera tive change is noted in the thoracic spine. Fusion hardware is seen in the lower cervical and upper l umbar spine. Arthritic change is noted in the shoulders. Surgical clips are seen in the left axilla. IMPRESSION: No active disease in the chest. ACT 112: Negative or not required by law. Electronically signed by: En Zhou M.D. 02/08/2020 8:11 PM
[2020-02-08 20:32] LABS: Partial Thromboplastin Ratio 1.1; Partial Thromboplastin Time 29.6 Seconds (21.0-31.0); Prothrombin Time 10.5 Seconds (9.0-12.0)
[2020-02-08 20:34] LABS: Alanine Aminotransferase 71 U/L (12-78); Albumin Level 4.4 gm/dl (3.4-5.0); Aspartate Aminotransferase 61 U/L (15-37); BUN Creatinine Ratio 8.3 (10-20); Blood Urea Nitrogen 11 mg/dl (7-18); Calcium 9.4 mg/dl (8.5-10.1); Carbon Dioxide 29 mmol/L (21-32); Chloride 104 mmol/L (98-107); Creatinine Clr Calc Pharmacy 43.2 ml/min; Est GFR (African American) 47.5; Glucose 133 mg/dl (70-99); Lipase 186 U/L (73-393); Potassium 3.4 mmol/L (3.5-5.1); Sodium 139 mmol/L (136-145)
[2020-02-08] MEDS ORDERED: ASPIRIN CHEW 324 MG PO STA (20:34)
[2020-02-08] MEDS ORDERED: NITROGLYCERIN SL 0.4 MG/TAB TAB SL STA (20:34)
[2020-02-08 20:40] LABS: Albumin Globulin Ratio 1.1 (0.9-2); Alkaline Phosphatase 102 U/L (45-117); Bilirubin,Total 0.4 mg/dl (0.2-1); Total Protein 8.4 gm/dl (6.4-8.2); Troponin I < 0.015 ng/ml (0-0.045)
--- NOTE | 2020-02-08 22:17 | Emergency Department Note ---
Impression & Plan Chest pain, Hypertension, Breath shortness, Hypokalemia ED Provider Note NAME: TEODORO PAEZ AGE: 74 SEX: F : 1945 ARRIVES VIA: Walk-In INFORMANT: Patient ED PROVIDER(S): Tha Slaughter DO CHIEF COMPLAINT: Chest pain shortness of breath HPI: Patient is a 74-year-old female who presents the ER for chest pain shortness of breath referred in by the PCP. This is been present for the past 2 to 3 days. She does have some pain that goes into left arm. She has a history of hypertension. She denies any belly pain, nausea vomiting or diarrhea. She does admit to the feeling of shaking all over. Denies any fevers. EKG was performed in the PCPs office and compared to an old EKG and reportedly there were new ST changes. She believes that the pain which she describes as a pressure/heaviness is throughout her entire chest. She notes it is worse with exertion but does come on with rest sometimes. Generally improves with rest. Patient denies diabetes, hyperlipidemia, CAD, history of sudden at a young age, and smoking. Patient denies swelling of calves, recent trips, history of immobilization or recent surgery, prior history of DVT, and hemoptysis. ROS: See above HPI for pertinent positives & negatives. A total of 10 systems reviewed and were otherwise negative. PAST MEDICAL HISTORY:See Below PAST SURGICAL HISTORY:See Below FAMILY HISTORY:See Below SOCIAL HISTORY:See Below HOME MEDICATIONS:See Below ALLERGIES:See Below VITALS:See Below PHYSICAL EXAMINATION: GENERAL: Sitting up in bed, alert, well appearing, well nourished, no distress, non-toxic EYE EXAM: normal conjunctiva. OROPHARYNX: no exudate, no erythema, lips, buccal mucosa, and tongue normal and mucous membranes are moist NECK: supple, no nuchal rigidity, no adenopathy, non-tender LUNGS: Clear to auscultation. Normal chest wall mechanics HEART: no murmurs, S1 normal and S2 normal ABDOMEN: abdomen soft, non-tender, normo-active bowel sounds, no masses, no rebound or guarding. UPPER EXTREMITIES: upper extremities are grossly normal. LOWER EXTREMITIES: No pitting edema. Calves are equal bilateral NEURO EXAM: Normal sensorium, cranial nerves II-XII grossly intact, normal speech, no gross weakness of arms, no gross weakness of legs. MEDICAL DECISION MAKING: Patient is a 74-year-old female with a past medical history of hypertension that presents the ER referred in by the PCP as she was having chest pain shortness of breath and had EKG changes. IV was established blood work was obtained. Labs show no significant leukocytosis or anemia. INR was unremarkable. BMP with mild hypokalemia. Creatinine at 1.3. Glucose slightly elevated. Bilirubin LFTs were unremarkable. Troponin was negative. Lipase was normal. Chest x-ray was unremarkable. Patient was given aspirin and nitro. Pain improved with nitro. Attempted to have her care managers pull EKG from [facility] but they were unable to. Discussed with Dr. Chauhan had difficulty as well and learn levels eventually able to pull up the EKG. She notes there may be a slight increase in the ST/T wave changes but the morphologies are consistent. I was never able to pull up the EKG here. Discussed with the hospitalist for further evaluation. Triage Nursing notes reviewed. Prior medical records reviewed Vital Signs: reviewed and remarkable for HTN Differential diagnosis: Differential diagnoses includes but is not limited to acute coronary syndrome, myocardial infarction, pericarditis, pulmonary embolus, aortic dissection, pneumonia, pneumothorax, musculoskeletal, shingles, esophageal. ER treatment provided: See below Diagnostics interpreted by me: ECG: Sinus rhythm rate of 71 Normal axis No PVCs Nonspecific ST wave changes V4 through V6 in the high lateral leads TWI V1 through V2 Cardiac Monitoring: An order was placed for continuous cardiac monitoring. The monitor shows a rate of 75 with sinus rhythm. Laboratory studies: As stated above and show below. Imaging studies: Portable AP upright 1 view the chest shows no focal infiltrate or pneumothorax. Consultation(s): Discussed with Dr. Chauhan for further evaluation ED COURSE: Procedures: none Critical Care: None Past Med/Surg History Medical History (Updated 02/08/20 @ 22:17 by Tha Slaughter DO) Anxiety Aspiration pneumonia Cellulitis of upper extremity recurrent, Dr Castellano Depression Fall Fatty liver Finger pain, left GERD (gastroesophageal reflux disease) History of bipolar disorder History of breast cancer (03/14/13) s/p chemo and radiation Hyperlipidemia Hypertension Hypokalemia Hypothyroidism Lumbar stenosis with neurogenic claudication TIA (transient ischemic attack) (05/24/14) Surgical History (Updated 07/27/19 @ 13:02 by Sharri Rosales MD) H/O colonoscopy "09/21/2014- adenomatous polyps, diverticulosis" H/O cystoscopy H/O dilation and curettage History of cataract surgery History of lymph node dissection of left axilla (03/2013) "03/14/2013- Left axillary lymph node dissection, Dx: metastatic carcinoma seen in 16 of 21 examined left lymph nodes. Placement of right subclavian venous Port-A-Cath." Status post lumbar surgery Status post total left knee replacement Social History Smoking Status: Never smoker Hx Alcohol Use: No Hx Substance Use: No Preferred Language: Khmer Communication Ability: Effective Beliefs That Will Affect Care: None marital status: Current Living Situation: Spouse Feels Safe at Home: Yes Assistive Devices: Glasses Allergies Allergies Allergy/AdvReac Type Severity Reaction Status Date / Time Cipro Allergy Severe HIVES Verified 11/05/17 17:39 ciprofloxacin Allergy Severe HIVES Verified 02/08/20 20:45 metronidazole Allergy Intermediate hives Verified 02/08/20 20:45 Sulfa (Sulfonamide Allergy Intermediate HIVES Verified 02/08/20 20:45 Antibiotics) Quinolones Allergy Mild CIPRO Verified 02/08/20 20:45 baclofen AdvReac Severe NEURO Verified 02/08/20 20:45 SYMPTOMS morphine AdvReac Severe DELIRIUM Verified 02/08/20 20:45 zolpidem AdvReac Mild delusions Verified 02/08/20 20:45 pantoprazole AdvReac Unknown migraines Verified 02/08/20 20:45 Home Meds Home Medications Medication Instructions Recorded Confirmed aspirin [Aspirin Low Dose] 81 mg PO DAILY #0 tab 11/17/11 02/08/20 levothyroxine 125 mcg PO DAILY #0 02/04/13 02/08/20 tramadol 50 - 100 mg PO Q4 PRN #0 02/04/13 02/08/20 atenolol 50 mg PO QAM #0 05/24/14 02/08/20 lithium carbonate 450 mg PO HS #0 05/24/14 02/08/20 [id number] 1 drp OTIC (EAR) 2XWK #0 05/24/14 02/08/20 pravastatin 80 mg PO HS #0 05/24/14 02/08/20 multivitamin [Multiple Vitamins] 1 tab PO QPM #0 tab 04/22/15 02/08/20 cranberry extract 300 mg PO BID #0 07/07/16 02/08/20 cyanocobalamin (vitamin B-12) 100 mcg PO QAM #0 tab 07/07/16 02/08/20 gabapentin 300 mg PO TID #0 cap 07/07/16 02/08/20 omeprazole magnesium 20 mg PO BID #0 cap 07/07/16 02/08/20 Probiotic 3,000 mmu cells PO TID #0 12/03/16 02/08/20 amlodipine 10 mg PO DAILY #0 tab 12/03/16 02/08/20 ascorbic acid (vitamin C) 1 g PO BID #0 12/03/16 02/08/20 calcium carbonate-vitamin D3 1 tab PO BID #0 12/03/16 02/08/20 [Calcium 500 + D] fluticasone propionate 2 spray INTRANASAL BID #0 12/03/16 02/08/20 lamotrigine 150 mg PO AMPM #0 tab 03/28/17 02/08/20 lorazepam 1 mg PO Q6H PRN #0 tab 03/28/17 02/08/20 dicyclomine 20 mg PO TID PRN #0 07/01/17 02/08/20 ipratropium bromide 2 spray INTRANASAL QID #0 07/01/17 02/08/20 montelukast [Singulair] 5 mg PO HS #0 07/01/17 02/08/20 Soothe XP 2 drp OPHTHALMIC (EYE) BID PRN 01/26/18 02/08/20 cetirizine 10 mg PO DAILY 01/26/18 02/08/20 chlorpheniramine maleate 4 mg PO HS PRN 01/26/18 02/08/20 furosemide 20 mg PO DAILY 01/26/18 02/08/20 meclizine 50 mg PO BID PRN 01/26/18 02/08/20 ondansetron HCl 8 mg PO TID PRN 01/26/18 02/08/20 simethicone [Gas Relief 80 80 mg PO BID PRN 01/26/18 02/08/20 (simethicone)] vitamin B complex 1 tab PO DAILY 07/05/18 02/08/20 famotidine 40 mg PO BID 02/08/20 02/08/20 losartan [Cozaar] 50 mg PO DAILY 02/08/20 02/08/20 trazodone 150 mg PO HS 02/08/20 02/08/20 turmeric root extract 500 mg PO BID 02/08/20 02/08/20 vancomycin [Vancocin] 125 mg PO DAILY 02/08/20 02/08/20 Results & Data (ED) Vital Signs Vital Signs - 24 hr 02/08/20 19:40 02/08/20 20:28 02/08/20 20:30 Temperature 36.6 C Temperature Source Oral Pulse Rate 74 63 74 Pulse Rate [Apical] Pulse Rate from SpO2 Sensor Pulse Rhythm [Apical] Pulse Strength [Apical] Respiratory Rate 20 18 21 Respiratory Effort / Characteristics Respiratory Depth Normal Respiratory Pattern Blood Pressure 175/91 H Blood Pressure [Right Arm] Blood Pressure Mean 119 Blood Pressure Mean [Right Arm] Blood Pressure Position [Right Arm] Pulse Oximetry 94 Oxygen Delivery Method Room Air Sepsis Recent Fever Within 48 Hours No Sepsis New/Unexplained Change in Mental Status N/A Sepsis Action Taken by Nursing No Action Required 02/08/20 20:40 02/08/20 20:45 02/08/20 20:47 Temperature Temperature Source Pulse Rate 61 64 Pulse Rate [Apical] 65 Pulse Rate from SpO2 Sensor Pulse Rhythm [Apical] Regular Pulse Strength [Apical] Normal Respiratory Rate 15 22 18 Respiratory Effort / Characteristics Non-Labored Spontaneous Respiratory Depth Normal Respiratory Pattern Regular Blood Pressure 153/97 H Blood Pressure [Right Arm] 153/97 H Blood Pressure Mean 115 Blood Pressure Mean [Right Arm] 115 Blood Pressure Position [Right Arm] Lying Pulse Oximetry 96 Oxygen Delivery Method Room Air Sepsis Recent Fever Within 48 Hours Sepsis New/Unexplained Change in Mental Status Sepsis Action Taken by Nursing 02/08/20 20:50 02/08/20 21:00 02/08/20 21:10 Temperature Temperature Source Pulse Rate 70 61 59 L Pulse Rate [Apical] Pulse Rate from SpO2 Sensor Pulse Rhythm [Apical] Pulse Strength [Apical] Respiratory Rate 22 16 22 Respiratory Effort / Characteristics Respiratory Depth Respiratory Pattern Blood Pressure Blood Pressure [Right Arm] Blood Pressure Mean Blood Pressure Mean [Right Arm] Blood Pressure Position [Right Arm] Pulse Oximetry Oxygen Delivery Method Sepsis Recent Fever Within 48 Hours Sepsis New/Unexplained Change in Mental Status Sepsis Action Taken by Nursing 02/08/20 21:20 Temperature Temperature Source Pulse Rate 60 Pulse Rate [Apical] Pulse Rate from SpO2 Sensor 61 Pulse Rhythm [Apical] Pulse Strength [Apical] Respiratory Rate 15 Respiratory Effort / Characteristics Respiratory Depth Respiratory Pattern Blood Pressure 171/89 H Blood Pressure [Right Arm] Blood Pressure Mean 131 Blood Pressure Mean [Right Arm] Blood Pressure Position [Right Arm] Pulse Oximetry 97 Oxygen Delivery Method Sepsis Recent Fever Within 48 Hours Sepsis New/Unexplained Change in Mental Status Sepsis Action Taken by Nursing Laboratory Data Result diagrams: 02/08/20 20:03 02/08/20 20:03 Lab Results 02/08/20 02/08/20 02/08/20 Range/Units 20:03 20:03 20:03 WBC 8.22 (4.8-10.8) K/uL RBC 5.18 (4.2-5.4) M/uL Hgb 15.8 (12.0-16.0) g/dL Hct 45.4 (37-47) % MCV 87.6 (80-100) fL MCH 30.5 (25-34) pg MCHC 34.8 (32-36) g/dL RDW Std Deviation 43.3 (36.4-46.3) fL RDW Coeff of [place] 13.5 (11.5-14.5) % Plt Count 272 (130-400) K/uL MPV 8.7 (7.4-10.4) fL Immature Gran % (Auto) 0.4 % Neut % (Auto) 73.0 % Lymph % (Auto) 21.7 % [place] % (Auto) 4.9 % Eos % (Auto) 0.0 % Baso % (Auto) 0.0 % Neut # (Auto) 6.01 (1.4-6.5) K/uL Lymph # (Auto) 1.78 (1.2-3.4) K/uL [place] # (Auto) 0.40 (0.11-0.59) K/uL Eos # (Auto) 0.00 (0-0.5) K/uL Baso # (Auto) 0.00 (0-0.2) K/uL Immature Gran # (Auto) 0.03 H (0.00-0.02) K/uL PT 10.5 (9.0-12.0) Seconds INR 1.0 (0.9-1.1) APTT 29.6 (21.0-31.0) Seconds PTT Ratio 1.1 Sodium 139 (136-145) mmol/L Potassium 3.4 L (3.5-5.1) mmol/L Chloride 104 (98-107) mmol/L Carbon Dioxide 29 (21-32) mmol/L Anion Gap 6.0 (3-11) BUN 11 (7-18) mg/dl Creatinine 1.30 H (0.6-1.2) mg/dl Est Cr Clr Drug Dosing 43.2 ml/min Est GFR ( Amer) 47.5 Est GFR (Non-Af Amer) 41.0 BUN/Creatinine Ratio 8.3 L (10-20) Glucose 133 H (70-99) mg/dl Calcium 9.4 (8.5-10.1) mg/dl Total Bilirubin 0.4 (0.2-1) mg/dl AST 61 H (15-37) U/L ALT 71 (12-78) U/L Alkaline Phosphatase 102 (45-117) U/L Troponin I < 0.015 (0-0.045) ng/ml Total Protein 8.4 H (6.4-8.2) gm/dl Albumin 4.4 (3.4-5.0) gm/dl Globulin 4.0 (2.5-4.0) gm/dl Albumin/Globulin Ratio 1.1 (0.9-2) Lipase 186 (73-393) U/L Administered Medications Discontinued Medications Aspirin (Aspirin Chew 324 Mg) 324 mg PO NOW STA Stop: 02/08/20 20:35 Last Admin: 02/08/20 20:45 Dose: 324 mg Documented by: [id number] Nitroglycerin (Nitroglycerin Sl 0.4 Mg/Tab Tab) 0.4 mg SL NOW STA Stop: 02/08/20 20:35 Last Admin: 02/08/20 20:45 Dose: 0.4 mg Documented by: [id number] Discharge Plan Visit Data Chief Complaint: Chest Pain Stated Complaint: chest pain ED Provider: Tha Slaughter Discharge Problem: Chest pain, Hypertension, Breath shortness, Hypokalemia Forms Stand Alone Forms: [facility] [employer] Prescriptions Prescriptions: No Action vitamin B complex [B Complex 1] tablet 1 tab PO DAILY RF: 0 aspirin [Aspirin Low Dose] 81 mg Tablet,Delayed Release (Dr/Ec) 81 mg PO DAILY Qty: 0 RF: 0 tramadol 50 mg Tablet 50 - 100 mg PO Q4 PRN (Reason: Pain) Qty: 0 RF: 0 levothyroxine 125 mcg Tablet 125 mcg PO DAILY Qty: 0 RF: 0 pravastatin 80 mg Tablet 80 mg PO HS Qty: 0 RF: 0 atenolol 50 mg Tablet 50 mg PO QAM Qty: 0 RF: 0 lithium carbonate 450 mg Tablet Extended Release 450 mg PO HS Qty: 0 RF: 0 [id number] 3.5-10,000-1 mg/mL-unit/mL-% Solution 1 drp OTIC (EAR) 2XWK Qty: 0 RF: 0 multivitamin [Multiple Vitamins] Tablet 1 tab PO QPM Qty: 0 RF: 0 cranberry extract 300 mg Tablet 300 mg PO BID Qty: 0 RF: 0 cyanocobalamin (vitamin B-12) 100 mcg Tablet 100 mcg PO QAM Qty: 0 RF: 0 gabapentin 300 mg Capsule 300 mg PO TID Qty: 0 RF: 0 omeprazole magnesium 20 mg Capsule,Delayed Release(Dr/Ec) 20 mg PO BID Qty: 0 RF: 0 ascorbic acid (vitamin C) 1,000 mg Tablet 1 g PO BID Qty: 0 RF: 0 amlodipine 5 mg Tablet 10 mg PO DAILY Qty: 0 RF: 0 fluticasone propionate 50 mcg/actuation [place],Suspension 2 spray INTRANASAL BID Qty: 0 RF: 0 calcium carbonate-vitamin D3 [Calcium 500 + D] 500 mg(1,250mg) -200 unit Tablet 1 tab PO BID Qty: 0 RF: 0 Probiotic 3 billion cell Capsule 3,000 mmu cells PO TID Qty: 0 RF: 0 lamotrigine 150 mg Tablet 150 mg PO AMPM Qty: 0 RF: 0 lorazepam 1 mg Tablet 1 mg PO Q6H PRN (Reason: Anxiety) Qty: 0 RF: 0 montelukast [Singulair] 5 mg Tablet,Chewable 5 mg PO HS Qty: 0 RF: 0 dicyclomine 20 mg Tablet 20 mg PO TID PRN (Reason: Abdominal Pain) Qty: 0 RF: 0 ipratropium bromide 0.03 % [place],Non-Aerosol 2 spray INTRANASAL QID Qty: 0 RF: 0 losartan [Cozaar] 50 mg tablet 50 mg PO DAILY RF: 0 famotidine 40 mg Tablet 40 mg PO BID RF: 0 vancomycin [Vancocin] 125 mg capsule 125 mg PO DAILY RF: 0 trazodone 100 mg tablet 150 mg PO HS RF: 0 turmeric root extract 500 mg Capsule 500 mg PO BID RF: 0 chlorpheniramine maleate 4 mg Tablet 4 mg PO HS PRN (Reason: Allergy Symptoms) RF: 0 cetirizine 10 mg Tablet 10 mg PO DAILY RF: 0 ondansetron HCl 8 mg Tablet 8 mg PO TID PRN (Reason: Nausea) RF: 0 meclizine 25 mg Tablet 50 mg PO BID PRN (Reason: Dizziness) RF: 0 furosemide 20 mg Tablet 20 mg PO DAILY RF: 0 simethicone [Gas Relief 80 (simethicone)] 80 mg Tablet,Chewable 80 mg PO BID PRN (Reason: Stomach Upset) RF: 0 Soothe XP 1-4.5 % Drops 2 drp ophthalmic (eye) BID PRN (Reason: Dry Eye(S)) RF: 0 Discharge Problem: Chest pain Qualifiers: Chest pain type: unspecified Qualified Code(s): R07.9 - Chest pain, unspecified Hypertension Qualifiers: Hypertension type: unspecified Qualified Code(s): I10 - Essential (primary) hypertension
[2020-02-08] MEDS ORDERED: traMADol HCL 50 MG TABLET PO PRN (23:05)
[2020-02-08] MEDS ORDERED: POLYETHYLENE (MIRALAX) 17 GM PACK PO PRN (23:05)
[2020-02-08] MEDS ORDERED: SIMETHICONE 80 MG CHEW PO PRN (23:05)
[2020-02-08] MEDS ORDERED: NITROGLYCERIN SL 0.4 MG/TAB TAB SL PRN (23:05)
[2020-02-08] MEDS ORDERED: DICYCLOMINE HCL 20 MG TAB PO PRN (23:05)
[2020-02-08] MEDS ORDERED: ACETAMINOPHEN 325 MG TAB PO PRN (23:05)
[2020-02-08] MEDS ORDERED: traZODone HCL 50 MG TAB PO SCH (23:05)
[2020-02-08] MEDS ORDERED: ONDANSETRON INJ 2 MG/ML 2 ML VIAL IV PRN (23:05)
[2020-02-08] MEDS ORDERED: LORazepam 1 MG TAB PO PRN (23:18)
[2020-02-08] MEDS ORDERED: ONDANSETRON 4 MG OD TAB PO PRN (23:19)
[2020-02-08] MEDS ORDERED: MECLIZINE HCL 25 MG TAB PO PRN (23:22)
[2020-02-08] MEDS ORDERED: ARTIFICIAL TEARS OP PRN (23:24)
--- NOTE | 2020-02-09 00:12 | History and Physical Report ---
DATE OF ADMISSION: 02/08/2020 CHIEF COMPLAINT: Chest pain. HISTORY OF PRESENT ILLNESS: This is a 74-year-old female with past medical history significant for hyperlipidemia, hypothyroidism, nonallergic rhinitis, chronic cough, hypertension, acid reflux disease, vitamin B12 deficiency, history of esophageal dysphagia, chronic kidney disease stage III, history of bacterial nephritis, chronic interstitial cystitis, history of degenerative cervical disc, history of breast cancer status post mastectomy and chemo, as per patient currently in remission, history of bipolar depression, mild cognitive impairment, history of recurrent UTIs, history of C. diff, currently on chronic suppressive therapy with p.o. vancomycin once daily until fecal transplantation comes with chest pain since last Wednesday. She is having on and off chest pain in the left side of the chest, no radiation. When severe, it is 7/10 in severity, pressure-like feeling. Also there was sometimes sweating, but somewhat mild when resting, somewhat more with some activity. It is not getting better, it is ongoing. Went to PCP and was advised to come to the ER. Currently received nitroglycerin. Says it helped a little bit, but not much, but the pain is not that much at this time. Hemodynamics are stable. Blood pressure is somewhat on the higher side. Has some mild headache from the nitro. She says once in a while she gets dizziness. No blurred vision, no earache, no runny nose, no sore throat, no dysphagia currently. The patient says her sense of taste is not good since she had chemo. No nausea, no vomiting, no abdominal pain. She has chronic diarrhea from her C. diff. Denies any blood in the stools or black stools. Normal bladder movements. No swelling in the legs, no rash seen. Says she ambulates without any support. Sleeps not well. Appetite is not that great. ALLERGIES: CIPRO, METRONIDAZOLE, SULFA, QUINOLONES, BACLOFEN, MORPHINE, ZOLPIDEM, PROTONIX. PAST MEDICAL HISTORY: As mentioned above. PAST SURGICAL HISTORY: Left total knee arthroplasty, breast lesion excision, lymph node deep axillary excision, cervical hemilaminectomy, colonoscopy with biopsies, cystoscopy, EGDs, low back surgery, neck surgery, nasal polypectomy, right thigh cyst removed, removal of bilateral eyelid lesion, cataract surgeries, repair of right leg flexor tendon. MEDICATIONS: The patient is on amlodipine 10 mg p.o. daily, vitamin C 1 gram p.o. b.i.d., aspirin 81 mg p.o. daily, atenolol 50 mg p.o. daily, calcium carbonate plus vitamin D 1 tablet p.o. b.i.d., cetirizine 10 mg p.o. daily, cranberry extract 300 mg p.o. b.i.d., vitamin B12 100 mcg p.o. a.m., dicyclomine 20 mg p.o. t.i.d. p.r.n., famotidine 40 mg p.o. b.i.d., Flonase 2 sprays intranasally b.i.d., Lasix 20 mg p.o. daily, gabapentin 300 mg p.o. t.i.d., ipratropium bromide 2 sprays intranasal q.i.d. p.r.n., Lamictal 150 mg p.o. b.i.d., levothyroxine 125 mcg p.o. daily, lithium carbonate 450 mg p.o. at bedtime, lorazepam 1 mg p.o. q. 6 hours p.r.n., Cozaar 50 mg p.o. daily, meclizine 50 mg p.o. b.i.d. p.r.n., Singulair 5 mg at bedtime, multivitamins 1 tablet p.o. p.m., omeprazole 20 mg p.o. b.i.d., Zofran 8 mg p.o. t.i.d. p.r.n., pravastatin 40 mg at bedtime, probiotic p.o. t.i.d., simethicone 80 mg p.o. b.i.d. p.r.n., tramadol 50-100 mg p.o. q. 4 hours p.r.n., trazodone 150 mg p.o. at bedtime, turmeric 500 mg p.o. b.i.d., vancomycin 125 mg p.o. daily, vitamin B complex 1 tablet p.o. daily. FAMILY HISTORY: Significant for mother has hypertension, father has heart disease and diabetes. SOCIAL HISTORY: . No smoking. No alcohol use, no drug use. REVIEW OF SYSTEMS: As per HPI. Rest of the review of systems negative. PHYSICAL EXAMINATION: GENERAL: The patient is of moderate build, not in acute distress. VITAL SIGNS: Temperature 36.6, pulse 60, respiratory rate 15, blood pressure 171/89, oxygen 97% on room air. HEENT: No pallor, no icterus. Pupils equal, round, and reactive to light. NECK: No JVD, no neck masses seen. CARDIOVASCULAR: S1, S2 heard, regular rate and rhythm, no murmur, no gallop. RESPIRATORY SYSTEM: Normal AP diameter. No accessory muscle use. No wheezing, no crackles. ABDOMEN: Soft, bowel sounds present, nontender. No distention. CENTRAL NERVOUS SYSTEM: Cranial nerves II-XII grossly intact. Nonfocal. EXTREMITIES: No edema, no erythema. LABORATORY DATA: WBC 8.2, hemoglobin 15.8, hematocrit 45.4, platelets 272. PT 10.5, INR 1, APTT 29.6. Sodium 139, potassium 3.4, chloride 104, bicarbonate 29, BUN 11, creatinine 1.3, serum glucose 133, calcium 9.4, total bilirubin 0.4, AST 61, ALT 71, alkaline phosphatase 102, troponin I less than 0.015. Lipase 186. IMAGING DATA: Chest x-ray, no active disease in the chest. EKG: Normal sinus rhythm at a rate of 71. Nonspecific T-wave abnormality seen. No acute ST changes seen. ASSESSMENT AND PLAN: This 74-year-old female presents with chest pain. 1. Chest pain, rule out acute coronary syndrome. Family history of heart disease and also the patient has risk factors of age, hypertension. Initial workup was negative. Observe in tele floor. Serial enzymes, echo, and consult cardiology in a.m. Will keep n.p.o. until seen by Cardiology. Continue her home aspirin. We will check the lipid profile. 2. History of hypertension: Continue her home medication of amlodipine, Cozaar, Atenol and Lasix. We will monitor the blood pressure. 3. History of gastroesophageal reflux disease: Continue her famotidine and omeprazole. 4. History of chronic kidney disease stage III. Baseline creatinine around 1-1.1, on Lasix 20mg daily. Currently creatinine of 1.3. Follow the labs in the a.m. 5. Clostridium difficile. Currently on suppressive therapy with vancomycin 125 mg p.o. daily and probiotic. Plan for fecal transplantation. 6. Hypothyroidism, continue Synthroid. 7. Hyperlipidemia, on pravastatin 80 mg daily. Follow the lipid profile. 8. Bipolar depression, on lithium carbonate and Lamictal. 9. Anxiety, on Ativan p.r.n. 10. History of breast cancer status post surgery and chemo, currently seems to be in remission. 11. Deep venous thrombosis prophylaxis, sequential compression devices for now. 12. Disposition: Observe in tele floor. Expect to discharge home and follow with family doctor. Level 1 full code. MTDD
[2020-02-09] MEDS: lamoTRIgine 100 MG TAB PO SCH ×2 (00:34→08:18)
[2020-02-09 05:39] LABS: Hemoglobin 14.7 g/dL (12.0-16.0); Immature Granulocytes # (auto) 0.02 K/uL (0.00-0.02); Immature Granulocytes % (auto) 0.3 %; Lymphocytes % (auto) 26.2 %; Mean Corpuscular Hemoglobin 30.5 pg (25-34); Mean Corpuscular Volume 87.1 fL (80-100); Mean Platelet Volume 8.7 fL (7.4-10.4); Monocytes # (auto) 0.43 K/uL (0.11-0.59); Neutrophils # (auto) 4.05 K/uL (1.4-6.5); Neutrophils % (auto) 66.5 %; Platelet Count 234 K/uL (130-400); RDW Coefficient of Variation 13.5 % (11.5-14.5); RDW Standard Deviation 43.2 fL (36.4-46.3); Red Blood Count 4.82 M/uL (4.2-5.4)
[2020-02-09 06:03] LABS: BUN Creatinine Ratio 9.8 (10-20); Calcium 9.1 mg/dl (8.5-10.1); Creatinine Clr Calc Pharmacy 52.5 ml/min; Est GFR (African American) 61.4; Potassium 3.3 mmol/L (3.5-5.1)
[2020-02-09] MEDS ORDERED: LEVOTHYROXINE SODIUM 125 MCG TABLET PO SCH (06:30)
[2020-02-09] MEDS ORDERED: POTASSIUM CHLORIDE CRTAB 20 MEQ TABCR PO STA (07:01)
[2020-02-09] MEDS: IPRATROPIUM BROMIDE NASAL SPRAY 0.06% 15ML NAE SCH ×2 (08:20→13:19)
[2020-02-09] MEDS: GABAPENTIN 300 MG CAP PO SCH ×2 (08:23→13:18)
[2020-02-09] MEDS: ADVANCED PROBIOTIC 1250 MG CAPSULE PO SCH ×2 (08:23→13:18)
[2020-02-09] MEDS ORDERED: FAMOTIDINE 40 MG TABLET PO SCH (09:00)
[2020-02-09] MEDS ORDERED: CETIRIZINE HCL 10 MG TABLET PO SCH (09:00)
[2020-02-09] MEDS ORDERED: VITAMIN B COMPLEX TAB PO SCH (09:00)
[2020-02-09] MEDS ORDERED: CYANOCOBALAMIN (VITAMIN B-12) 100 MCG TABLET PO SCH (09:00)
[2020-02-09] MEDS ORDERED: FUROSEMIDE 20 MG TAB PO SCH (09:00)
[2020-02-09] MEDS ORDERED: ASCORBIC ACID 500 MG TAB PO SCH (09:00)
[2020-02-09] MEDS ORDERED: CALCIUM 600MG + VIT D 400 IU TAB PO SCH (09:00)
[2020-02-09] MEDS ORDERED: RASPBERRY SYRUP 5 ML UDP PO SCH (09:00)
[2020-02-09] MEDS ORDERED: ATENOLOL 50 MG TABLET PO SCH (09:00)
[2020-02-09] MEDS ORDERED: LOSARTAN POTASSIUM 50 MG TAB PO SCH (09:00)
[2020-02-09] MEDS ORDERED: PANTOprazole 40 MG TAB PO SCH (09:00)
[2020-02-09] MEDS ORDERED: VANCOMYCIN HCL 125 MG/2.5ML SOLN PO SCH (09:00)
[2020-02-09] MEDS ORDERED: ASPIRIN 81 MG ECTAB PO SCH (09:00)
[2020-02-09] MEDS ORDERED: FLUTICASONE PROPIONATE NA SPR 16 GM BTL SCH (09:00)
[2020-02-09] MEDS ORDERED: amLODIPine BESYLATE 5 MG TAB PO SCH (09:00)
--- NOTE | 2020-02-09 10:45 | Cardiology Consultation ---
Date of Consultation February 09, 2020 Assessment & Plan (1) Chest pain: (2) History of breast cancer: (3) Anxiety: (4) Mitral valve posterior leaflet prolapse: Patient presents with an episode of atypical chest discomfort. Initial ischemic work-up unremarkable with negative troponin and EKG with diffuse T wave abnormalities unchanged compared to previous Resting echocardiogram unremarkable. Dobutamine stress echocardiogram was nonischemic. No further cardiac testing necessary at this time. We will defer further work-up of her chest discomfort to primary team. Recommend further blood pressure control Atenolol held for stress test may be restarted. Would recommend increasing losartan to 100 mg daily. No cardiac follow-up necessary at this time. Recommend follow-up with PCP as an outpatient and return to cardiology if necessary. History of Present Illness Reason for Consultation: chest pain Requesting Physician: Dr. Castellanos Attending Physician: Zoya Amor MD History of Present Illness Ms. Dyer is a 74-year-old woman who was directed to the emergency department on 02/08/2020 from her PCPs office with complaints of chest pain. She states that for several days now she is just not felt well. Overall she feels fatigued, diffuse myalgias and ongoing abdominal discomfort given ongoing C. difficile infection. She states that approximately 3 days ago she developed chest discomfort. She describes as a pressure sensation along her left precor dium. She states it is relatively constant but may be exacerbated with activities. She denies any associated radiation of the discomfort, shortness of breath, diaphoresis, palpitations, lightheadedness or dizziness. Upon arrival to the ED, she received sublingual nitroglycerin without significant relief. She states that the discomfort is slowly eased up overnight. She also notes that she has been very anxious lately given her ongoing medical problems and she is questioning whether or not her chest discomfort may be related to the anxiety. Allergies Allergy/AdvReac Type Severity Reaction Status Date / Time Cipro Allergy Severe HIVES Verified 11/05/17 17:39 ciprofloxacin Allergy Severe HIVES Verified 02/08/20 20:45 metronidazole Allergy Intermediate hives Verified 02/08/20 20:45 Sulfa (Sulfonamide Allergy Intermediate HIVES Verified 02/08/20 20:45 Antibiotics) Quinolones Allergy Mild CIPRO Verified 02/08/20 20:45 baclofen AdvReac Severe NEURO Verified 02/08/20 20:45 SYMPTOMS morphine AdvReac Severe DELIRIUM Verified 02/08/20 20:45 zolpidem AdvReac Mild delusions Verified 02/08/20 20:45 pantoprazole AdvReac Unknown migraines Verified 02/08/20 20:45 Home Medications Home Medications Medication Instructions Recorded Confirmed Type aspirin [Aspirin Low Dose] 81 mg PO DAILY #0 tab 11/17/11 02/08/20 History levothyroxine 125 mcg PO DAILY #0 02/04/13 02/08/20 History tramadol 50 - 100 mg PO Q4 PRN #0 02/04/13 02/08/20 History atenolol 50 mg PO QAM #0 05/24/14 02/08/20 History lithium carbonate 450 mg PO HS #0 05/24/14 02/08/20 History [id number] 1 drp OTIC (EAR) 2XWK #0 05/24/14 02/08/20 History pravastatin 80 mg PO HS #0 05/24/14 02/08/20 History multivitamin [Multiple Vitamins] 1 tab PO QPM #0 tab 04/22/15 02/08/20 History cranberry extract 300 mg PO BID #0 07/07/16 02/08/20 History cyanocobalamin (vitamin B-12) 100 mcg PO QAM #0 tab 07/07/16 02/08/20 History gabapentin 300 mg PO TID #0 cap 07/07/16 02/08/20 History omeprazole magnesium 20 mg PO BID #0 cap 07/07/16 02/08/20 History Probiotic 3,000 mmu cells PO TID #0 12/03/16 02/08/20 History amlodipine 10 mg PO DAILY #0 tab 12/03/16 02/08/20 History ascorbic acid (vitamin C) 1 g PO BID #0 12/03/16 02/08/20 History calcium carbonate-vitamin D3 1 tab PO BID #0 12/03/16 02/08/20 History [Calcium 500 + D] fluticasone propionate 2 spray INTRANASAL BID #0 12/03/16 02/08/20 History lamotrigine 150 mg PO AMPM #0 tab 03/28/17 02/08/20 History lorazepam 1 mg PO Q6H PRN #0 tab 03/28/17 02/08/20 History dicyclomine 20 mg PO TID PRN #0 07/01/17 02/08/20 History ipratropium bromide 2 spray INTRANASAL QID #0 07/01/17 02/08/20 History montelukast [Singulair] 5 mg PO HS #0 07/01/17 02/08/20 History Soothe XP 2 drp OPHTHALMIC (EYE) BID PRN 01/26/18 02/08/20 History cetirizine 10 mg PO DAILY 01/26/18 02/08/20 History chlorpheniramine maleate 4 mg PO HS PRN 01/26/18 02/08/20 History furosemide 20 mg PO DAILY 01/26/18 02/08/20 History meclizine 50 mg PO BID PRN 01/26/18 02/08/20 History ondansetron HCl 8 mg PO TID PRN 01/26/18 02/08/20 History simethicone [Gas Relief 80 80 mg PO BID PRN 01/26/18 02/08/20 History (simethicone)] vitamin B complex 1 tab PO DAILY 07/05/18 02/08/20 History famotidine 40 mg PO BID 02/08/20 02/08/20 History losartan [Cozaar] 50 mg PO DAILY 02/08/20 02/08/20 History trazodone 150 mg PO HS 02/08/20 02/08/20 History turmeric root extract 500 mg PO BID 02/08/20 02/08/20 History vancomycin [Vancocin] 125 mg PO DAILY 02/08/20 02/08/20 History Patient History Medical History (Updated 02/09/20 @ 10:57 by Ezequiel Moreno DO) Anxiety Aspiration pneumonia Cellulitis of upper extremity recurrent, Dr Nona Depression Fall Fatty liver Finger pain, left GERD (gastroesophageal reflux disease) History of bipolar disorder History of breast cancer (03/14/13) s/p chemo and radiation Hyperlipidemia Hypertension Hypokalemia Hypothyroidism Lumbar stenosis with neurogenic claudication TIA (transient ischemic attack) (05/24/14) Surgical History H/O colonoscopy "09/21/2014- adenomatous polyps, diverticulosis" H/O cystoscopy H/O dilation and curettage History of cataract surgery History of lymph node dissection of left axilla (03/2013) "03/14/2013- Left axillary lymph node dissection, Dx: metastatic carcinoma seen in 16 of 21 examined left lymph nodes. Placement of right subclavian venous Port-A-Cath." Status post lumbar surgery Status post total left knee replacement Social History Smoking Status: Never smoker Hx Alcohol Use: No Hx Substance Use: No Preferred Language: Thai Communication Ability: Effective Beliefs That Will Affect Care: None marital status: Current Living Situation: Spouse Other Information That Helps Us Care for You: No Feels Safe at Home: Yes Safety Concerns: Feels Safe At This Time Assistive Devices: Glasses Review of Systems Review of Systems: All systems reviewed & are unremarkable except as noted in HPI & below Physical Exam Physical Exam: Physical Exam: General: Awake, alert and oriented x 3. No acute distress. HEENT: Normocephalic, atraumatic. Pupils equal, round and reactive to light and accommodation. Extraocular muscles are intact. Anicteric sclera. Moist mucous membranes. Neck: No JVD. No bruit. Cardiovascular: Regular. No S-4. Normal S-1 and S-2. No S-3. No murmurs, rubs or gallops. Pulmonary: Clear to auscultation bilaterally. No rales, rhonchi, or wheezing. Abdomen: Bowel sounds x 4, soft. No rebound, guarding or tenderness. No organomegaly. Extremities: No clubbing, cyanosis or edema. +2 pedal pulses bilaterally. Skin: Warm and dry. Results & Data ([facility]) Vital Signs (Past 12 Hours) Vital Signs Temp Pulse Pulse Resp BP Pulse Ox 02/09/20 09:24 36.6 C 64 19 170/82 H 98 02/09/20 09:15 63 02/09/20 08:51 36.4 C L 67 18 162/94 H 97 02/09/20 08:00 65 02/09/20 03:08 36.5 C 62 17 133/81 93 02/08/20 23:35 36.6 C 69 18 174/106 H 98 02/08/20 22:50 75 17 02/08/20 22:40 62 15 (1) Chest pain Chest pain type: unspecified Qualified Code(s): R07.9 - Chest pain, unspecified
[2020-02-09 12:29] VITALS: BP 131/82; PULSE 67; TEMP 98.1; O2SAT 96
--- NOTE | 2020-02-09 13:27 | Discharge Summary ---
Date of Service February 09, 2020 Admission HPI Per Admitting Provider 74-year-old female with past medical history significant for hyperlipidemia, hypothyroidism, nonallergic rhinitis, chronic cough, hypertension, acid reflux disease, vitamin B12 deficiency, history of esophageal dysphagia, chronic kidney disease stage III, history of bacterial nephritis, chronic interstitial cystitis, history of degenerative cervical disc, history of breast cancer status post mastectomy and chemo, as per patient currently in remission, history of bipolar depression, mild cognitive impairment, history of recurrent UTIs, history of C. diff, currently on chronic suppressive therapy with p.o. vancomycin once daily until fecal transplantation comes with chest pain since last Wednesday. She is having on and off chest pain in the left side of the chest, no radiation. When severe, it is 7/10 in severity, pressure-like feeling. Also there was sometimes sweating, but somewhat mild when resting, somewhat more with some activity. It is not getting better, it is ongoing. Went to PCP and was advised to come to the ER. Currently received nitroglycerin. Says it helped a little bit, but not much, but the pain is not that much at this time. Hemodynamics are stable. Blood pressure is somewhat on the higher side. Has some mild headache from the nitro. She says once in a while she gets dizziness. No blurred vision, no earache, no runny nose, no sore throat, no dysphagia currently. The patient says her sense of taste is not good since she had chemo. No nausea, no vomiting, no abdominal pain. She has chronic diarrhea from her C. diff. Denies any blood in the stools or black stools. Normal bladder movements. No swelling in the legs, no rash seen. Says she ambulates without any support. Sleeps not well. Appetite is not that great. Admission Exam Per Admitting Provider GENERAL: The patient is of moderate build, not in acute distress. VITAL SIGNS: Temperature 36.6, pulse 60, respiratory rate 15, blood pressure 171/89, oxygen 97% on room air. HEENT: No pallor, no icterus. Pupils equal, round, and reactive to light. NECK: No JVD, no neck masses seen. CARDIOVASCULAR: S1, S2 heard, regular rate and rhythm, no murmur, no gallop. RESPIRATORY SYSTEM: Normal AP diameter. No accessory muscle use. No wheezing, no crackles. ABDOMEN: Soft, bowel sounds present, nontender. No distention. CENTRAL NERVOUS SYSTEM: Cranial nerves II-XII grossly intact. Nonfocal. EXTREMITIES: No edema, no erythema. Principal Diagnosis Chest pain Discharge Exam Constitutional + well hydrated; no acute distress Eyes PERRL, conjunctivae normal, anicteric sclerae ENMT external ear and nose normal, oropharynx normal Respiratory normal respiratory effort, lungs clear to auscultation Cardiovascular RRR, no murmur, no edema Gastrointestinal (Abdomen) normal bowel sounds, soft, nontender, no hepatosplenomegaly Musculoskeletal no cyanosis or clubbing, extremities motor strength 5/5 Neurologic PERRL, EOMI, accommodation nl, no face palsy, no dysarthria Psychiatric A+Ox3, euthymic affect Discharge Data Allergies Allergy/AdvReac Type Severity Reaction Status Date / Time Cipro Allergy Severe HIVES Verified 11/05/17 17:39 ciprofloxacin Allergy Severe HIVES Verified 02/08/20 20:45 metronidazole Allergy Intermediate hives Verified 02/08/20 20:45 Sulfa (Sulfonamide Allergy Intermediate HIVES Verified 02/08/20 20:45 Antibiotics) Quinolones Allergy Mild CIPRO Verified 02/08/20 20:45 baclofen AdvReac Severe NEURO Verified 02/08/20 20:45 SYMPTOMS morphine AdvReac Severe DELIRIUM Verified 02/08/20 20:45 zolpidem AdvReac Mild delusions Verified 02/08/20 20:45 pantoprazole AdvReac Unknown migraines Verified 02/08/20 20:45 Consultations 02/08/20 20:45 ED Decision to Admit Stat 02/08/20 23:05 Consult Case Management - Discharge Planning Routine 02/09/20 08:00 Consult Cardiology Routine Hospital Course (1) Chest pain: Patient presented with chest pain EKG showed diffuse T wave abnormalities unchanged to prior Troponin trend was negative Patient had an unremarkable resting Echo Dobutamine stress echo did not show any ischemic changes Chest pain has resolved. (2) Hypertension: BP was elevated Cardiology recommended to increase losartan to 100mg daily reports they have enough and will get refills from PCP Continue amlodipine, atenolol (3) Hypothyroidism: Continue levothyroxine (4) Anxiety: (5) Depression: Continue home meds for bipolar Patient to get lithium level in 3 days especially with increased losartan dose Advised to follow up results with PCP (6) Hypokalemia: Hypokalemia likely due to c diff diarrhea + home lasix Repleted Discharged on po potassium chloride 20meq daily for 3 days To get BMP next week to monitor K. Follow up results with PCP Continue po vancomycin for c diff Total Time Total Time Spent Total Time Spent (In Minutes): 35 Total Time Includes: Examination of the Patient, Discharge Planning and Medication Reconciliation Discharge Plan Discharge Items Patient Disposition: Home - Self-Care Reason For Visit: CHEST PAIN Discharge Diagnosis: Chest pain Activity: Resume your previous activity Non-emergency contact: Primary Care Provider and [employer] Call non-emergency contact if: you have any medication questions and your symptoms worsen Follow-up/Referrals: Shakeel Benitez DO [Primary Care Provider] - 02/13/20 11:00 am Diet: Heart Healthy Ambulatory Orders: Basic Metabolic Panel (Routine) Timeframe: 3 Days Location: Determined by Patient Ordered By: Zoya Amor [place] (Routine) Timeframe: 3 Days Location: Determined by Patient Ordered By: Zoya Amor Addtl Attending Provider Instructions: Mrs Dyer. You came to the hospital complaining of chest pain. You had extensive evaluation which did not show this was due to a heart problem. Your blood pressure medication losartan was increased to 100mg daily. You were discharged on a few days of tablet potassium Please do the blood tests -Basic metabolic panel and [place] level in 3 days to monitor potassium and lithium level Please follow this up with your Primary Doctor. It was a pleasure taking care of you. Pending Studies at Discharge: No Stand-Alone Forms: My [facility], Smoking Cessation Medications and DC Order Prescriptions: New potassium chloride 20 mEq tablet extended release 20 meq PO DAILY 3 Days Qty: 3 RF: 0 Continued vitamin B complex [B Complex 1] tablet 1 tab PO DAILY RF: 0 aspirin [Aspirin Low Dose] 81 mg Tablet,Delayed Release (Dr/Ec) 81 mg PO DAILY Qty: 0 RF: 0 tramadol 50 mg Tablet 50 - 100 mg PO Q4 PRN (Reason: Pain) Qty: 0 RF: 0 levothyroxine 125 mcg Tablet 125 mcg PO DAILY Qty: 0 RF: 0 pravastatin 80 mg Tablet 80 mg PO HS Qty: 0 RF: 0 atenolol 50 mg Tablet 50 mg PO QAM Qty: 0 RF: 0 lithium carbonate 450 mg Tablet Extended Release 450 mg PO HS Qty: 0 RF: 0 ulybwvpu-qlgufkjzl-KA 3.5-10,000-1 mg/mL-unit/mL-% Solution 1 drp OTIC (EAR) 2XWK Qty: 0 RF: 0 multivitamin [Multiple Vitamins] Tablet 1 tab PO QPM Qty: 0 RF: 0 cranberry extract 300 mg Tablet 300 mg PO BID Qty: 0 RF: 0 cyanocobalamin (vitamin B-12) 100 mcg Tablet 100 mcg PO QAM Qty: 0 RF: 0 gabapentin 300 mg Capsule 300 mg PO TID Qty: 0 RF: 0 omeprazole magnesium 20 mg Capsule,Delayed Release(Dr/Ec) 20 mg PO BID Qty: 0 RF: 0 ascorbic acid (vitamin C) 1,000 mg Tablet 1 g PO BID Qty: 0 RF: 0 amlodipine 5 mg Tablet 10 mg PO DAILY Qty: 0 RF: 0 fluticasone propionate 50 mcg/actuation [place],Suspension 2 spray INTRANASAL BID Qty: 0 RF: 0 calcium carbonate-vitamin D3 [Calcium 500 + D] 500 mg(1,250mg) -200 unit Tabl et 1 tab PO BID Qty: 0 RF: 0 Probiotic 3 billion cell Capsule 3,000 mmu cells PO TID Qty: 0 RF: 0 lamotrigine 150 mg Tablet 150 mg PO AMPM Qty: 0 RF: 0 lorazepam 1 mg Tablet 1 mg PO Q6H PRN (Reason: Anxiety) Qty: 0 RF: 0 montelukast [Singulair] 5 mg Tablet,Chewable 5 mg PO HS Qty: 0 RF: 0 dicyclomine 20 mg Tablet 20 mg PO TID PRN (Reason: Abdominal Pain) Qty: 0 RF: 0 ipratropium bromide 0.03 % [place],Non-Aerosol 2 spray INTRANASAL QID Qty: 0 RF: 0 famotidine 40 mg Tablet 40 mg PO BID RF: 0 vancomycin [Vancocin] 125 mg capsule 125 mg PO DAILY RF: 0 trazodone 100 mg tablet 150 mg PO HS RF: 0 turmeric root extract 500 mg Capsule 500 mg PO BID RF: 0 chlorpheniramine maleate 4 mg Tablet 4 mg PO HS PRN (Reason: Allergy Symptoms) RF: 0 cetirizine 10 mg Tablet 10 mg PO DAILY RF: 0 ondansetron HCl 8 mg Tablet 8 mg PO TID PRN (Reason: Nausea) RF: 0 meclizine 25 mg Tablet 50 mg PO BID PRN (Reason: Dizziness) RF: 0 furosemide 20 mg Tablet 20 mg PO DAILY RF: 0 simethicone [Gas Relief 80 (simethicone)] 80 mg Tablet,Chewable 80 mg PO BID PRN (Reason: Stomach Upset) RF: 0 Soothe XP 1-4.5 % Drops 2 drp ophthalmic (eye) BID PRN (Reason: Dry Eye(S)) RF: 0 Changed losartan [Cozaar] 50 mg tablet 100 mg PO DAILY 30 Days Qty: 60 RF: 0 Discharge Orders: Discharge Order (Routine); Ordered 02/09/20 Ordered By: Zoya Herrera/Other Patient Handouts: Taking Potassium, Warning Signs of a Heart Attack, What Is C. Diff?, Potassium Phosphate oral tablets Admission Data Admit Date/Time: 02/08/20 21:27 Attending Provider: Zoya Amor I. Admit Provider: Mich Castellanos Primary Care Provider: Shakeel Benitez Other Providers: Mich Castellanos ; Ezequiel Moreno ; Asad Echols ; Dejon Ratliff ; Yaniv Frey ; Sean Mason ; Avni Mcgarry ; Suyapa Hester ; Sissy Sampson ; Mauricio Thomason ; Belkis Nayak Other Interventions: Discharge Summary Assessment (RN) Last Done: 02/09/20 13:38
[2020-02-09] MEDS ORDERED: METOPROLOL TARTRATE 1 MG/ML VIAL IV ONE (13:35)
[2020-02-09] MEDS ORDERED: DOBUTamine HCL 12.5 MG/ML 20 ML VIAL IV ONE (13:35)
[2020-02-09] MEDS ORDERED: ATROPINE SULFATE 0.1 MG/ML 10ML SYR IV ONE (13:35)
--- NOTE | 2020-02-09 19:21 | Electrocardiogram Report ---
Test Reason : Blood Pressure : / mmHG Vent. Rate : 071 BPM Atrial Rate : 071 BPM P-R Int : 176 ms QRS Dur : 078 ms QT Int : 420 ms P-R-T Axes : 057 -04 091 degrees QTc Int : 456 ms Normal sinus rhythm Minimal voltage criteria for LVH, may be normal variant Nonspecific T wave abnormality Abnormal ECG When compared with ECG of 26-JAN-2018 10:28, Nonspecific T wave abnormality has replaced inverted T waves in Anterolateral leads Confirmed by Darrel Aguilar ([id number]) on 02/09/2020 7:20:41 PM Referred By: REFERRED SELF Confirmed By:Darrel Aguilar
--- NOTE | 2020-02-09 19:32 | Electrocardiogram Report ---
Test Reason : Blood Pressure : / mmHG Vent. Rate : 062 BPM Atrial Rate : 062 BPM P-R Int : 196 ms QRS Dur : 090 ms QT Int : 440 ms P-R-T Axes : 066 022 022 degrees QTc Int : 446 ms Normal sinus rhythm T wave abnormality, consider anterior ischemia Abnormal ECG When compared with ECG of 08-FEB-2020 19:51, Nonspecific T wave abnormality now evident in Inferior leads T wave inversion more evident in Anterior leads Confirmed by Darrel Aguilar ([id number]) on 02/09/2020 7:32:03 PM Referred By: REFERRED SELF Confirmed By:Darrel Aguilar
[2020-02-09] MEDS ORDERED: MULTIVITAMIN TAB PO SCH (21:00)
[2020-02-09] MEDS ORDERED: LITHIUM CARBONATE 450 MG TABCR PO SCH (21:00)
[2020-02-09] MEDS ORDERED: PRAVASTATIN SOD 40 MG TAB PO SCH (21:00)
[2020-02-09] MEDS ORDERED: MONTELUKAST SOD 5 MG CHEWABLE TAB PO SCH (21:00)
[2020-02-10] MEDS ORDERED: LOSARTAN POTASSIUM 50 MG TAB PO SCH (09:00)
== END 2020-02-09 14:34 | disposition home or self-care (01) ==
LOC: ED 19:38 → 2S 19:38 → SUATTDRO 21:27 → 2S 22:52

== ENCOUNTER 2020-05-21 04:13 | Inpatient (IN) ==
[2020-05-21] MEDS ORDERED: SODIUM CHLORIDE 0.9% 1000ML 500 ML IV ONE (04:22)
[2020-05-21] MEDS ORDERED: ONDANSETRON INJ 2 MG/ML 2 ML VIAL IV STA (04:22)
[2020-05-21] MEDS ORDERED: MECLIZINE HCL 25 MG TAB PO STA (04:22)
--- NOTE | 2020-05-21 05:02 | Emergency Department Note ---
History of Present Illness General Chief complaint: Weakness Stated complaint: WEAK/NAUSEA/HEADACHE Time Seen by Provider: 05/21/20 04:21 Source: patient, EMS, RN notes reviewed and old records reviewed Mode of arrival: EMS Limitations: no limitations History of Present Illness Provider complaint: nausea Onset (ago): hour(s) 4 Location: head Current Pain Intensity: 0 Relieved By: + immobilization and + rest Exacerbated By: + movement Associated symptoms: + cough, + nausea/vomiting and + weakness; no confusion, no chest pain, no diaphoresis, no fever/chills and no headaches Treatments prior to arrival: none This is a 74-year-old female who reports to the emergency department complaining of nausea. The patient reports she feels dizzy anytime she moves her head. She reports rest makes the dizziness better however immobilization makes it worse. The patient reports she has never had anything like this before. She reports that nothing makes the dizziness better. She has not taken anything for the dizziness prior to arrival. The patient called EMS who brought her to the emergency department. Home Medications Medication Instructions Recorded Confirmed Type aspirin [Aspirin Low Dose] 81 mg PO QAM #0 tab 11/17/11 05/21/20 History levothyroxine 125 mcg PO QAM #0 02/04/13 05/21/20 History tramadol 50 - 100 mg PO Q4 PRN #0 02/04/13 05/21/20 History atenolol 50 mg PO QAM #0 05/24/14 05/21/20 History lithium carbonate 450 mg PO HS #0 05/24/14 05/21/20 History scwwfjqr-eeqnqsqzo-ET 1 drp OTIC (EAR) 2XWK #0 05/24/14 05/21/20 History pravastatin 80 mg PO HS #0 05/24/14 05/21/20 History multivitamin [Multiple Vitamins] 1 tab PO QPM #0 tab 04/22/15 05/21/20 History cranberry extract 300 mg PO BID #0 07/07/16 05/21/20 History cyanocobalamin (vitamin B-12) 100 mcg PO QAM #0 tab 07/07/16 05/21/20 History gabapentin 300 mg PO TID #0 cap 07/07/16 05/21/20 History omeprazole magnesium 20 mg PO AMHS #0 cap 07/07/16 05/21/20 History Probiotic 3,000 mmu cells PO BID #0 12/03/16 05/21/20 History ascorbic acid (vitamin C) 1 g PO BID #0 12/03/16 05/21/20 History calcium carbonate-vitamin D3 1 tab PO BID #0 12/03/16 05/21/20 History [Calcium 500 + D] fluticasone propionate 2 spray INTRANASAL AMPM #0 12/03/16 05/21/20 History lamotrigine 150 mg PO AMPM #0 tab 03/28/17 05/21/20 History lorazepam 1 mg PO Q6H PRN #0 tab 03/28/17 05/21/20 History dicyclomine 20 mg PO QID #0 07/01/17 05/21/20 History ipratropium bromide 2 spray INTRANASAL QID #0 07/01/17 05/21/20 History Soothe XP 2 drp OPHTHALMIC (EYE) BID 01/26/18 05/21/20 History cetirizine 10 mg PO DAILY 01/26/18 05/21/20 History furosemide 20 mg PO QAM 01/26/18 05/21/20 History meclizine 50 mg PO TID PRN 01/26/18 05/21/20 History ondansetron HCl 8 mg PO Q8 PRN 01/26/18 05/21/20 History simethicone [Gas Relief 80 80 mg PO BID PRN 01/26/18 05/21/20 History (simethicone)] famotidine 40 mg PO QAM 02/08/20 05/21/20 History trazodone 200 mg PO HS 02/08/20 05/21/20 History turmeric root extract 500 mg PO BID 02/08/20 05/21/20 History vancomycin [Vancocin] 125 mg PO QAM 02/08/20 05/21/20 History amlodipine 10 mg PO QAM 05/21/20 05/21/20 History colestipol 2 g PO BID 05/21/20 05/21/20 History fluocinonide 1 applic TOPICAL BID 05/21/20 05/21/20 History losartan [Cozaar] 100 mg PO QAM 05/21/20 05/21/20 History omega 0-btx-mjb-fish oil 1 dose PO QAM 05/21/20 05/21/20 History pilocarpine HCl 5 mg PO TID 05/21/20 05/21/20 History vilazodone [Viibryd] 10 mg PO QPM 05/21/20 05/21/20 History Allergies Allergy/AdvReac Type Severity Reaction Status Date / Time ciprofloxacin Allergy Severe HIVES Verified 02/28/20 09:55 metronidazole Allergy Intermediate hives Verified 05/21/20 05:41 Sulfa (Sulfonamide Allergy Intermediate HIVES Verified 05/21/20 05:41 Antibiotics) Quinolones Allergy Mild CIPRO Verified 02/28/20 09:55 baclofen AdvReac Severe NEURO Verified 05/21/20 05:41 SYMPTOMS morphine AdvReac Severe DELIRIUM Verified 02/28/20 09:55 zolpidem AdvReac Mild delusions Verified 05/21/20 05:41 pantoprazole AdvReac Unknown migraines Verified 05/21/20 05:41 Past Med/Surg History Medical History Anxiety Aspiration pneumonia Cellulitis of upper extremity recurrent, Dr Castellano Depression Fall Fatty liver Finger pain, left GERD (gastroesophageal reflux disease) History of bipolar disorder History of breast cancer (03/14/13) s/p chemo and radiation Hyperlipidemia Hypertension Hypokalemia Hypothyroidism Lumbar stenosis with neurogenic claudication TIA (transient ischemic attack) (05/24/14) Surgical History H/O colonoscopy "09/21/2014- adenomatous polyps, diverticulosis" H/O cystoscopy H/O dilation and curettage History of cataract surgery History of lymph node dissection of left axilla (03/2013) "03/14/2013- Left axillary lymph node dissection, Dx: metastatic carcinoma seen in 16 of 21 examined left lymph nodes. Placement of right subclavian venous Port-A-Cath." Status post lumbar surgery Status post total left knee replacement Social History Smoking Status: Never smoker Hx Alcohol Use: No Hx Substance Use: No Preferred Language: Occitan Communication Ability: Effective Beliefs That Will Affect Care: None marital status: Current Living Situation: Spouse Feels Safe at Home: Yes Assistive Devices: Glasses Review of Systems A total of 10 systems reviewed and were otherwise negative Physical Exam Vital Signs Vital Signs - 24 hr 05/21/20 04:06 05/21/20 04:15 05/21/20 04:22 Temperature 37.4 C Temperature Source Oral Pulse Rate 89 89 Pulse Rate from SpO2 Sensor 89 Respiratory Rate 19 21 Respiratory Effort / Characteristics Non-Labored Spontaneous Respiratory Depth Normal Respiratory Pattern Regular Blood Pressure 140/75 140/75 Blood Pressure Mean 96 96 Pulse Oximetry 90 91 94 Oxygen Delivery Method Room Air Room Air Room Air Sepsis Recent Fever Within 48 Hours Yes Sepsis New/Unexplained Change in Mental Status No Sepsis Action Taken by Nursing No Action Required 05/21/20 05:14 05/21/20 05:26 05/21/20 05:30 Temperature Temperature Source Pulse Rate 82 78 78 Pulse Rate from SpO2 Sensor 82 78 78 Respiratory Rate 23 22 21 Respiratory Effort / Characteristics Respiratory Depth Respiratory Pattern Blood Pressure 122/65 113/65 113/62 Blood Pressure Mean 84 81 79 Pulse Oximetry 94 92 92 Oxygen Delivery Method Sepsis Recent Fever Within 48 Hours Sepsis New/Unexplained Change in Mental Status Sepsis Action Taken by Nursing 05/21/20 05:31 05/21/20 06:00 Temperature Temperature Source Pulse Rate 76 73 Pulse Rate from SpO2 Sensor 76 73 Respiratory Rate 19 17 Respiratory Effort / Characteristics Respiratory Depth Respiratory Pattern Blood Pressure 99/57 L Blood Pressure Mean 71 Pulse Oximetry 92 90 Oxygen Delivery Method Sepsis Recent Fever Within 48 Hours Sepsis New/Unexplained Change in Mental Status Sepsis Action Taken by Nursing VITAL SIGNS - Vital signs and nursing notes were reviewed. GENERAL - 74-year-old female appearing stated age who is in no acute distress. Communicates well with provider and answers questions appropriately. SKIN - Without rashes. HEAD - NC/AT. EYES - PERRL with EOMI bilaterally. Sclera anicteric. Palpebral conjunctiva pink and moist with no injection noted. EARS - No deformities of external structures noted on gross examination bilaterally. NOSE - Midline and without cyanosis. No epistaxis or purulent drainage noted. Septum midline without deviation or septal hematoma noted. MOUTH/OROPHARYNX - Without perioral cyanosis. Buccal mucosa pink and moist and without leukoplakia. Tongue midline with equal elevation of palate bilaterally. No tonsillar hypertrophy, erythema, or exudates noted. dentition noted. NECK - Neck with FROM. Supple to palpation. lymphadenopathy noted. No nuchal rigidity. LUNGS - Chest wall symmetric without accessory muscle use, intercostals retractions, or central cyanosis. Normal vesicular breath sounds CTA B/L. No wheezes, rales, or rhonchi appreciated. CARDIAC - RRR with S1/S2. No murmur, rubs, or gallops appreciated. ABDOMEN - Abdominal contour without pulsations or visible masses. BS normoactive all four quadrants. No tenderness, palpable masses, hepatosplenom egaly, or ascites noted. EXTREMITIES - LUE: diffuse lymphedema, arm is reddened in appearance, No c lubbing or peripheral cyanosis. No pretibial edema present. +3/5 radial, posterior tibial, and dorsalis pedis pulses palpated throughout. +5/5 strength noted in UE/LE bilaterally. NEUROLOGIC - Cranial nerves II through XII grossly intact. Sensory intact to light touch throughout. Patellar reflexes +2/4. PSYCH - A&Ox3 and cooperates fully with examiner. Pt is very pleasant and interacts well with examiner. Course Administered Medications Discontinued Medications Aspirin (Aspirin 81 Mg Chew) 324 mg PO NOW STA Stop: 05/21/20 06:21 Last Admin: 05/21/20 06:28 Dose: 324 mg Documented by: [id number] Sodium Chloride (Nss 1000ml) 500 mls @ 999 mls/hr IV .Q31M ONE Stop: 05/21/20 04:52 Last Infusion: 05/21/20 05:22 Dose: 0 mls/hr Documented by: [id number] Admin: 05/21/20 04:35 Dose: 999 mls/hr Documented by: [id number] Ceftriaxone Sodium (Rocephin) 2,000 mg in 70 mls @ 140 mls/hr IV NOW STA Stop: 05/21/20 05:35 Last Infusion: 05/21/20 06:09 Dose: 0 mls/hr Documented by: [id number] Admin: 05/21/20 05:22 Dose: 140 mls/hr Documented by: [id number] Meclizine HCl (Meclizine Hcl 25 Mg Tab) 25 mg PO NOW STA Stop: 05/21/20 04:23 Last Admin: 05/21/20 04:35 Dose: 25 mg Documented by: [id number] Ondansetron HCl (Ondansetron Inj 2 Mg/Ml 2 Ml Vial) 4 mg IV NOW STA Stop: 05/21/20 04:23 Last Admin: 05/21/20 04:35 Dose: 4 mg Documented by: [id number] Medical Decision Making Differential Diagnosis Infection, dehydration, metabolic abnormality, hypo/hyperglycemia, electrolyte disturbance, anemia, hypoxia, cardiac sources, intracerebral event, toxicologic, neurologic, as well as other pathologies. Medical Records Attestation: I reviewed the patient's medical records. Home Medications Current Medication List: was personally reviewed by me Laboratory Data Attestation: I reviewed the patient's lab results. Result diagrams: 05/21/20 04:39 05/21/20 04:39 Lab Results 05/21/20 05/21/20 05/21/20 Range/Units 04:39 04:39 04:39 WBC 11.86 H (4.8-10.8) K/uL RBC 4.27 (4.2-5.4) M/uL Hgb 13.4 (12.0-16.0) g/dL Hct 38.2 (37-47) % MCV 89.5 (80-100) fL MCH 31.4 (25-34) pg MCHC 35.1 (32-36) g/dL RDW Std Deviation 43.5 (36.4-46.3) fL RDW Coeff of [place] 13.3 (11.5-14.5) % Plt Count 269 (130-400) K/uL MPV 8.6 (7.4-10.4) fL Immature Gran % (Auto) 0.3 % Neut % (Auto) 91.0 % Lymph % (Auto) 4.4 % [place] % (Auto) 4.3 % Eos % (Auto) 0.0 % Baso % (Auto) 0.0 % Neut # (Auto) 10.80 H (1.4-6.5) K/uL Lymph # (Auto) 0.52 L (1.2-3.4) K/uL [place] # (Auto) 0.51 (0.11-0.59) K/uL Eos # (Auto) 0.00 (0-0.5) K/uL Baso # (Auto) 0.00 (0-0.2) K/uL Immature Gran # (Auto) 0.03 H (0.00-0.02) K/uL Sodium 140 (136-145) mmol/L Potassium 3.6 (3.5-5.1) mmol/L Chloride 106 (98-107) mmol/L Carbon Dioxide 24 (21-32) mmol/L Anion Gap 10.0 (3-11) BUN 6 L (7-18) mg/dl Creatinine 1.27 H (0.6-1.2) mg/dl Est Cr Clr Drug Dosing 46.4 ml/min Est GFR ( Amer) 48.8 Est GFR (Non-Af Amer) 42.1 BUN/Creatinine Ratio 4.4 L (10-20) Glucose 121 H (70-99) mg/dl Calcium 9.1 (8.5-10.1) mg/dl Total Bilirubin 0.5 (0.2-1) mg/dl AST 24 (15-37) U/L ALT 43 (12-78) U/L Alkaline Phosphatase 90 (45-117) U/L Total Creatine Kinase 44 (26-192) U/L CK-MB (CK-2) < 1.0 (0.5-3.6) ng/ml CK/CKMB % Calc TNP Total Protein 7.4 (6.4-8.2) gm/dl Albumin 3.9 (3.4-5.0) gm/dl Globulin 3.5 (2.5-4.0) gm/dl Albumin/Globulin Ratio 1.1 (0.9-2) TSH 1.590 (0.300-4.500) uIu/ml Urine Color Urine Appearance (Clear) Urine pH (4.5-7.5) Ur Specific Leslie (1.000-1.030) Urine Protein (Negative) Urine Glucose (UA) (Negative) Urine Ketones (Negative) Urine Blood (Negative) Urine Nitrite (Negative) Urine Bilirubin (Negative) Urine Urobilinogen (Negative) Ur Leukocyte Esterase (Negative) Urine RBC (0-4) /hpf Urine WBC (0-5) /hpf Ur Epithelial Cells (0-5) /lpf Urine Bacteria (Negative) Vandiver 1.0 (0.6-1.2) mmol/L COVID-19 Eval Order SARS-CoV-2, RNA, NAAT (NEGATIVE) 05/21/20 05/21/20 05/21/20 Range/Units 04:50 04:50 04:50 WBC (4.8-10.8) K/uL RBC (4.2-5.4) M/uL Hgb (12.0-16.0) g/dL Hct (37-47) % MCV (80-100) fL MCH (25-34) pg MCHC (32-36) g/dL RDW Std Deviation (36.4-46.3) fL RDW Coeff of [place] (11.5-14.5) % Plt Count (130-400) K/uL MPV (7.4-10.4) fL Immature Gran % (Auto) % Neut % (Auto) % Lymph % (Auto) % [place] % (Auto) % Eos % (Auto) % Baso % (Auto) % Neut # (Auto) (1.4-6.5) K/uL Lymph # (Auto) (1.2-3.4) K/uL [place] # (Auto) (0.11-0.59) K/uL Eos # (Auto) (0-0.5) K/uL Baso # (Auto) (0-0.2) K/uL Immature Gran # (Auto) (0.00-0.02) K/uL Sodium (136-145) mmol/L Potassium (3.5-5.1) mmol/L Chloride (98-107) mmol/L Carbon Dioxide (21-32) mmol/L Anion Gap (3-11) BUN (7-18) mg/dl Creatinine (0.6-1.2) mg/dl Est Cr Clr Drug Dosing ml/min Est GFR ( Amer) Est GFR (Non-Af Amer) BUN/Creatinine Ratio (10-20) Glucose (70-99) mg/dl Calcium (8.5-10.1) mg/dl Total Bilirubin (0.2-1) mg/dl AST (15-37) U/L ALT (12-78) U/L Alkaline Phosphatase (45-117) U/L Total Creatine Kinase (26-192) U/L CK-MB (CK-2) (0.5-3.6) ng/ml CK/CKMB % Calc Total Protein (6.4-8.2) gm/dl Albumin (3.4-5.0) gm/dl Globulin (2.5-4.0) gm/dl Albumin/Globulin Ratio (0.9-2) TSH (0.300-4.500) uIu/ml Urine Color Yellow Urine Appearance Clear (Clear) Urine pH 7.0 (4.5-7.5) Ur Specific [place] 1.010 (1.000-1.030) Urine Protein Negative (Negative) Urine Glucose (UA) Negative (Negative) Urine Ketones Negative (Negative) Urine Blood Negative (Negative) Urine Nitrite Positive A (Negative) Urine Bilirubin Negative (Negative) Urine Urobilinogen Negative (Negative) Ur Leukocyte Esterase 1+ H (Negative) Urine RBC 0-4 (0-4) /hpf Urine WBC 10-30 H (0-5) /hpf Ur Epithelial Cells 0-5 (0-5) /lpf Urine Bacteria 4+ H (Negative) Vandiver (0.6-1.2) mmol/L COVID-19 [facility] SARS-CoV-2, RNA, NAAT NEGATIVE (NEGATIVE) Imaging Data Attestation: I personally reviewed and interpreted this imaging study as follows: My Impression: 1 view of the chest was interpreted by me shows no evidence of pneumonia congestion or pneumothorax. Radiologist's Impression: CT of the head no intracranial hemorrhage, mass-effect or edema. No acute cortical infarct. 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 Paranasal sinuses and mastoid air cells are clear. No fracture. ECG Data Attestation: I personally reviewed and interpreted this ECG as follows: Indication: + nausea Rate (beats per minute): 88 Rhythm: + normal sinus ECG Intervals/blocks: + Normal QT-c (491) ECG [place]: + Normal ECG ST segments: no ST depression and no ST elevation ECG Findings: + Q waves (Lateral, inferior) Comparison ECG Date: from (02/09/2020) Change: no significant change MDM Narrative Patient was seen and evaluated as above in room C5. Review was performed of nursing notes and vital signs. I did review pertinent previous visits and pat ient history. After obtaining a thorough history and physical examination the above work up was performed. This is a 74-year-old female who presents emergency department complaining of dizziness anytime she moves her head. She also appears to have a urinary tract infection. I will note that the patient is afebrile here not tachycardic. She was started on Rocephin. She does have a slight elevation in her white blood cell count. Patient was also given a normal saline bolus as well as meclizine. The patient's CAT scan is concerning for a cerebellar infarct. This in theory could be causing the patient's dizziness. The infarct is new compared to CAT scans and MRI back in 2018. Based on these findings I feel the patient should be admitted to the hospital. I did discuss the results with the hospitalist service who did agree to admit the patient An order was placed for continuous cardiac monitoring. The monitor shows a rate of 89 with Normal SInus rhythm. I attest that I have personally reviewed the patient medication list. The patient was evaluated during a period of high volume and high acuity while the hospital was at overcapacity during the global COVID-19 pandemic, and that diagnosis was suspected/considered upon their initial presentation. Their evaluation, treatment and testing was consistent with current guidelines for patients who present with complaints or symptoms that may be related to COVID- 19. Impression & Plan Dizziness, Acute CVA (cerebrovascular accident) Discharge Plan Visit Data Chief Complaint: Weakness Stated Complaint: WEAK/NAUSEA/HEADACHE ED Provider: Nik Hodges Discharge Problem: Dizziness, Acute CVA (cerebrovascular accident) Forms Stand Alone Forms: [facility] Prescriptions Prescriptions: No Action aspirin [Aspirin Low Dose] 81 mg Tablet,Delayed Release (Dr/Ec) 81 mg PO QAM Qty: 0 RF: 0 tramadol 50 mg Tablet 50 - 100 mg PO Q4 PRN (Reason: Pain) Qty: 0 RF: 0 levothyroxine 125 mcg Tablet 125 mcg PO QAM Qty: 0 RF: 0 pravastatin 80 mg Tablet 80 mg PO HS Qty: 0 RF: 0 atenolol 50 mg Tablet 50 mg PO QAM Qty: 0 RF: 0 lithium carbonate 450 mg Tablet Extended Release 450 mg PO HS Qty: 0 RF: 0 adadylco-sgqkrzrbl-XY 3.5-10,000-1 mg/mL-unit/mL-% Solution 1 drp OTIC (EAR) 2XWK Qty: 0 RF: 0 multivitamin [Multiple Vitamins] Tablet 1 tab PO QPM Qty: 0 RF: 0 cranberry extract 300 mg Tablet 300 mg PO BID Qty: 0 RF: 0 cyanocobalamin (vitamin B-12) 100 mcg Tablet 100 mcg PO QAM Qty: 0 RF: 0 gabapentin 300 mg Capsule 300 mg PO TID Qty: 0 RF: 0 omeprazole magnesium 20 mg Capsule,Delayed Release(Dr/Ec) 20 mg PO AMHS Qty: 0 RF: 0 ascorbic acid (vitamin C) 1,000 mg Tablet 1 g PO BID Qty: 0 RF: 0 fluticasone propionate 50 mcg/actuation Ophiem,Suspension 2 spray INTRANASAL AMPM Qty: 0 RF: 0 calcium carbonate-vitamin D3 [Calcium 500 + D] 500 mg(1,250mg) -200 unit Tablet 1 tab PO BID Qty: 0 RF: 0 Probiotic 3 billion cell Capsule 3,000 mmu cells PO BID Qty: 0 RF: 0 lamotrigine 150 mg Tablet 150 mg PO AMPM Qty: 0 RF: 0 lorazepam 1 mg Tablet 1 mg PO Q6H PRN (Reason: Anxiety) Qty: 0 RF: 0 dicyclomine 20 mg Tablet 20 mg PO QID Qty: 0 RF: 0 ipratropium bromide 0.03 % Ophiem,Non-Aerosol 2 spray INTRANASAL QID Qty: 0 RF: 0 famotidine 40 mg Tablet 40 mg PO QAM RF: 0 vancomycin [Vancocin] 125 mg capsule 125 mg PO QAM RF: 0 trazodone 100 mg tablet 200 mg PO HS RF: 0 turmeric root extract 500 mg Capsule 500 mg PO BID RF: 0 amlodipine 10 mg tablet 10 mg PO QAM RF: 0 losartan [Cozaar] 50 mg tablet 100 mg PO QAM RF: 0 pilocarpine HCl 5 mg tablet 5 mg PO TID RF: 0 Viibryd 10 mg Tablet 10 mg PO QPM RF: 0 colestipol 1 gram tablet 2 g PO BID RF: 0 omega 9-whz-trd-fish oil 1 dose PO QAM RF: 0 fluocinonide 0.05 % Gel 1 applic TOPICAL BID RF: 0 cetirizine 10 mg Tablet 10 mg PO DAILY RF: 0 ondansetron HCl 8 mg Tablet 8 mg PO Q8 PRN (Reason: Nausea) RF: 0 meclizine 25 mg Tablet 50 mg PO TID PRN (Reason: Dizziness) RF: 0 furosemide 20 mg Tablet 20 mg PO QAM RF: 0 simethicone [Gas Relief 80 (simethicone)] 80 mg Tablet,Chewable 80 mg PO BID PRN (Reason: Stomach Upset) RF: 0 Soothe XP 1-4.5 % Drops 2 drp ophthalmic (eye) BID RF: 0
[2020-05-21 05:05] LABS: Appearance Urine Clear (Clear); Bilirubin Urine Negative (Negative); Blood Urine Negative (Negative); Color Urine Yellow; Glucose Urine UA Negative (Negative); Ketones Urine Negative (Negative); Leukocyte Esterase Urine 1+ (Negative); Nitrite Urine Positive (Negative); Protein Urine Negative (Negative); Urobilinogen Urine Negative (Negative)
[2020-05-21 05:05] LABS: Hematocrit (blood only) 38.2 % (37-47); Hemoglobin 13.4 g/dL (12.0-16.0); Immature Granulocytes # (auto) 0.03 K/uL (0.00-0.02); Immature Granulocytes % (auto) 0.3 %; Lymphocytes # (auto) 0.52 K/uL (1.2-3.4); Lymphocytes % (auto) 4.4 %; Mean Corpuscular Hemoglobin 31.4 pg (25-34); Mean Corpuscular Hgb Conc 35.1 g/dL (32-36); Mean Corpuscular Volume 89.5 fL (80-100); Mean Platelet Volume 8.6 fL (7.4-10.4); Monocytes # (auto) 0.51 K/uL (0.11-0.59); Monocytes % (auto) 4.3 %; Platelet Count 269 K/uL (130-400); RDW Coefficient of Variation 13.3 % (11.5-14.5); RDW Standard Deviation 43.5 fL (36.4-46.3); Red Blood Count 4.27 M/uL (4.2-5.4); White Blood Count 11.86 K/uL (4.8-10.8)
[2020-05-21] MEDS ORDERED: cefTRIAXone SODIUM 2,000 MG/70 ML BAG IV STA (05:06)
[2020-05-21 05:11] LABS: Bacteria Urine 4+ (Negative); Epithelial Cell Urine 0-5 /lpf (0-5); RBC Urine 0-4 /hpf (0-4)
[2020-05-21 05:26] LABS: Alanine Aminotransferase 43 U/L (12-78); Albumin Level 3.9 gm/dl (3.4-5.0); Aspartate Aminotransferase 24 U/L (15-37); BUN Creatinine Ratio 4.4 (10-20); Blood Urea Nitrogen 6 mg/dl (7-18); Calcium 9.1 mg/dl (8.5-10.1); Carbon Dioxide 24 mmol/L (21-32); Chloride 106 mmol/L (98-107); Creatinine Clr Calc Pharmacy 46.4 ml/min; Est GFR (African American) 48.8; Est GFR (Non-African American) 42.1; Glucose 121 mg/dl (70-99); Potassium 3.6 mmol/L (3.5-5.1); Sodium 140 mmol/L (136-145)
[2020-05-21 05:36] LABS: Albumin Globulin Ratio 1.1 (0.9-2); Alkaline Phosphatase 90 U/L (45-117); Bilirubin,Total 0.5 mg/dl (0.2-1); Creatine Kinase 44 U/L (26-192); Creatine Kinase MB < 1.0 ng/ml (0.5-3.6); Globulin 3.5 gm/dl (2.5-4.0); Total Protein 7.4 gm/dl (6.4-8.2)
[2020-05-21] MEDS ORDERED: ASPIRIN 81 MG CHEW PO STA (06:20)
--- NOTE | 2020-05-21 07:19 | CT Scan Report ---
HEAD CT NONCONTRAST CT DOSE: 729.78 mGycm HISTORY: pt c/o dizzy TECHNIQUE: Multiaxial CT images of the head were performed without the use of intravenous contrast. A utomated exposure control was utilized for this study. A dose lowering technique was utilized adheri ng to the principles of ALARA. Comparison: Brain MRI 01/28/2018. Findings: The paranasal sinuses and mastoid air cells are clear. The calvarium and skull base are int act. There is no mass, hematoma, midline shift, acute infarct. White matter hypodensity is nonspecifi c but suggestive of microvascular ischemic change. The ventricles and sulci demonstrate mild age-rela salty involutional changes. Old punctate lacunar infarct within the right cerebellar hemisphere. Impression: No acute intracranial abnormality. ACT 112: Negative or not required by law. Electronically signed by: Kurt Lovett M.D. 05/21/2020 7:18 AM
--- NOTE | 2020-05-21 07:23 | XRay Report ---
XR chest 1V portable HISTORY: weakness COMPARISON: Chest 02/08/2020. FINDINGS: There are low lung volumes. No pleural effusions. No pneumothorax. The cardiac silhouette r emains mildly enlarged. No new focal lung consolidations to suggest pneumonia. No evidence for pulmon ted edema. Cervical and lumbar spinal fusion hardware are again noted. Degenerative changes within th e shoulders. IMPRESSION: No significant change compared to the prior study. No acute process. Stable cardiomegaly. ACT 112: Negative or not required by law. Electronically signed by: Kurt Lovett M.D. 05/21/2020 7:21 AM
[2020-05-21] MEDS ORDERED: ACETAMINOPHEN 325 MG TAB PO PRN (07:56)
[2020-05-21] MEDS ORDERED: ONDANSETRON INJ 2 MG/ML 2 ML VIAL IV PRN (07:56)
[2020-05-21] MEDS ORDERED: NITROGLYCERIN SL 0.4 MG/TAB TAB SL PRN (07:56)
[2020-05-21] MEDS ORDERED: cefTRIAXone SODIUM 1,000 MG in DEXTROSE 5% 50 ML IV SCH (07:56)
[2020-05-21] MEDS ORDERED: PHARMACIST DISCHARGE MED REC CONSULT PRN (07:56)
[2020-05-21] MEDS ORDERED: traMADol HCL 50 MG TABLET PO PRN (07:56)
[2020-05-21] MEDS ORDERED: SIMETHICONE 80 MG CHEW PO PRN (07:56)
[2020-05-21] MEDS ORDERED: POLYETHYLENE (MIRALAX) 17 GM PACK PO PRN (07:56)
[2020-05-21] MEDS ORDERED: LORazepam 1 MG TAB PO PRN (08:22)
[2020-05-21] MEDS ORDERED: MECLIZINE HCL 25 MG TAB PO PRN (08:24)
--- NOTE | 2020-05-21 08:59 | Hospitalist Progress Note ---
Date of Service May 21, 2020 Assessment & Plan (1) UTI (urinary tract infection): (2) Cellulitis of left upper extremity: (3) Leukocytosis: (4) Dizziness: (5) Clostridium difficile enteritis: (6) Acute CVA (cerebrovascular accident): (7) Bipolar 1 disorder: (8) Mitral valve posterior leaflet prolapse: (9) Hypertension: (10) Hypothyroidism: (11) Anxiety: (12) Depression: (13) Fatty liver: (14) History of breast cancer: Patient was seen 2 hours ago by my partner for admission, BP low so I doubt new CVA, +UTI, + LUE Cellulitis IV abx Rocephin and Vanco, Neuro eval, MRI and Carotids, PO Vanco for chronic CDiff, says she's getting a fecal TP soon. Doppler for LUE Lymphedema and redness, Continue OP meds where indicated, Monitor Daily Labs. Labs Checked ROS-No Headache, No Visual Changes, No Nausea, No Vomiting, No Fever, No Chills, No Neck Pain or Stiffness, No Chest Pain, No Palpitations, No SOB, No HUYNH, No Cough, No Sputum, No Wheezing, No Abdominal Pain, No Diarrhea, No Hematemesis, No Hemoptysis, No Unexpected Weight Loss, No Flank pain, No Melena, No Hematochezia, No Frequency, No Urgency, No Burning, No Hematuria, No Rashes, No Diaphoresis. Appetite is Normal Physical Exam Gen-AAO x 3, NAD, Afebrile Head-NCAT, EOMI, PERRLA, Anicteric Sclera, No Posterior Pharyngeal Erythema Neck-Supple, No JVD, No Thyromegaly, No Masses, No LAD, No Bruits Lungs-Clear to Auscultation Bilaterally, No Rales, No Rhonchi, No Wheezing, No Crepitus Chest-No S4, +S1, +S2, No S3, No Murmurs, No Rubs, No Gallops, No Ectopy Abdomen-Soft, Bowel Sounds Present, Non Tender, Non Distended, No Hepatomegaly, No Splenomegaly, No Palpable Masses, No Rebound, No Rigidity, No Guarding Musculoskeletal-Full Range of Motion Bilaterally, No CVAT Extremities-No Cyanosis, No Clubbing, No Edema Nuero-Cranial Nerves II-XII grossly intact, Motor WNL, DTRs WNL, Strength WNL, Non Focal Psych-Normal Mood Admission and Anticipated Discharge Date Admission Date: May 21, 2020 Results & Data Results & Data ([facility]) Vital Signs (Past 12 Hours) Vital Signs Temp Pulse Pulse Resp BP BP BP 05/21/20 08:08 36.8 C 71 16 108/67 05/21/20 07:40 67 115/67 05/21/20 06:00 73 17 99/57 L 05/21/20 05:31 76 19 05/21/20 05:30 78 21 113/62 05/21/20 05:26 78 22 113/65 05/21/20 05:14 82 23 122/65 05/21/20 04:22 89 21 140/75 05/21/20 04:15 37.4 C 89 19 140/75 05/21/20 04:06 Pulse Ox 05/21/20 08:08 96 05/21/20 07:40 95 05/21/20 06:00 90 05/21/20 05:31 92 05/21/20 05:30 92 05/21/20 05:26 92 05/21/20 05:14 94 05/21/20 04:22 94 05/21/20 04:15 91 05/21/20 04:06 90 (1) Hypertension Hypertension type: unspecified Qualified Code(s): I10 - Essential (primary) hypertension
[2020-05-21] MEDS ORDERED: NON-FORMULARY MEDICATION (Turmeric Root Extract 500 mg Capsule) PO SCH (09:00)
[2020-05-21] MEDS: SODIUM CHLORIDE 0.9% 1000ML 1,000 ML IV SCH ×2 (09:21→22:33)
[2020-05-21] MEDS: PANTOprazole 40 MG TAB PO SCH ×2 (09:21→21:28)
[2020-05-21] MEDS: lamoTRIgine 100 MG TAB PO SCH ×2 (09:21→21:25)
[2020-05-21] MEDS: ADVANCED PROBIOTIC 1250 MG CAPSULE PO SCH ×2 (09:22→21:25)
[2020-05-21] MEDS: GABAPENTIN 300 MG CAP PO SCH ×3 (09:23→21:28)
[2020-05-21] MEDS: ATENOLOL 50 MG TABLET PO SCH (09:23)
[2020-05-21] MEDS: amLODIPine BESYLATE 5 MG TAB PO SCH (09:23)
[2020-05-21] MEDS: FLUTICASONE PROPIONATE NA SPR 16 GM BTL SCH ×2 (09:24→21:30)
[2020-05-21] MEDS: CALCIUM 600MG + VIT D 400 IU TAB PO SCH ×2 (09:24→21:29)
[2020-05-21] MEDS: ASCORBIC ACID 500 MG TAB PO SCH ×2 (09:24→21:27)
[2020-05-21] MEDS: ASPIRIN 81 MG ECTAB PO SCH (09:25)
[2020-05-21] MEDS: CYANOCOBALAMIN (VITAMIN B-12) 100 MCG TABLET PO SCH (09:26)
[2020-05-21] MEDS: FAMOTIDINE 40 MG TABLET PO SCH (09:26)
[2020-05-21] MEDS: CETIRIZINE HCL 10 MG TABLET PO SCH (09:26)
[2020-05-21] MEDS: PILOCARPINE HCL 5 MG TABLET PO SCH ×3 (09:27→21:28)
[2020-05-21] MEDS: DICYCLOMINE HCL 20 MG TAB PO SCH ×4 (09:27→21:29)
[2020-05-21] MEDS: FUROSEMIDE 20 MG TAB PO SCH (09:28)
[2020-05-21] MEDS: LEVOTHYROXINE SODIUM 125 MCG TABLET PO SCH (09:28)
[2020-05-21] MEDS: LOSARTAN POTASSIUM 50 MG TAB PO SCH (09:28)
[2020-05-21] MEDS: RASPBERRY SYRUP 5 ML UDP PO SCH (09:29)
[2020-05-21] MEDS: VANCOMYCIN HCL 125 MG/2.5ML SOLN PO SCH (09:29)
[2020-05-21] MEDS: COLESTIPOL HCL 1 GM TAB PO SCH ×2 (10:41→22:28)
--- NOTE | 2020-05-21 11:11 | Electrocardiogram Report ---
Test Reason : Blood Pressure : / mmHG Vent. Rate : 088 BPM Atrial Rate : 088 BPM P-R Int : 174 ms QRS Dur : 076 ms QT Int : 406 ms P-R-T Axes : 063 016 123 degrees QTc Int : 491 ms Normal sinus rhythm Abnormal ECG When compared with ECG of 09-FEB-2020 06:29, No significant change was found Confirmed by Dav Quintanilla ([id number]) on 05/21/2020 11:11:45 AM Referred By: REFERRED SELF Confirmed By:Dav Quintanilla
--- NOTE | 2020-05-21 11:34 | History and Physical Report ---
DATE OF ADMISSION: 05/21/2020 CHIEF COMPLAINT: Dizziness. HISTORY OF PRESENT ILLNESS: A 74-year-old female with past medical history significant for hyperlipidemia, hypothyroidism, nonallergic rhinitis, chronic cough, chemical pneumonitis, hypertension, GERD, vitamin B12 deficiency, esophageal dysphagia, chronic interstitial cystitis, bilateral nephritis, chronic kidney disease stage III, post-mastectomy lymphedema syndrome, degeneration of cervical intervertebral disc, malignant neoplasm of axillary lymph nodes, major depression, bipolar depression, history of recurrent UTIs, history of breast cancer, history of C. diff, who lives with her , presents with dizziness. The patient says since midnight around 1:00-2:00 a.m., she started to feel dizzy and also as per , she also has fever and chills and came to the ER. In the ER, the CAT scan showed right chronic cerebellar infarct and question of CVA, so we admitted her for stroke workup and also UTI treatment. COVID is negative. The patient denies any headache, no blurred vision, no earache, no runny nose, no sore throat, says no loss of sense of smell, but taste is not good for the last 2 weeks and she notes her appetite is down for the last 2 weeks, chronic cough, no chest pain, no shortness of breath. Before she came to the ER, she had an episode of nausea, no abdominal pain. No diarrhea or constipation or blood in the stool or black stools. Denies any burning micturition. It looks like she has chronic lymphedema of the left upper extremity and she has some erythema seen in the upper extremity. Currently, resting comfortably and hemodynamically stable. ALLERGIES: CIPROFLOXACIN, METRONIDAZOLE, SULFA ANTIBIOTICS, QUINOLONES, BACLOFEN, MORPHINE, ZOLPIDEM, PROTONIX. PAST MEDICAL HISTORY: As mentioned above. PAST SURGICAL HISTORY: Left total knee arthroplasty, breast lesion excision, axillary lymph node excision, cervical hemilaminectomy, colonoscopy with biopsy, cystoscopy, EGDs, low back surgery, neck surgery, nasal polypectomy, right thigh cyst removal, removal of bilateral eyelid lesions, cataract surgery, repair of right leg flexor tendon. MEDICATIONS: The patient is currently on amlodipine 10 mg p.o. a.m., ascorbic acid 1 gram p.o. b.i.d., aspirin 81 mg p.o. a.m., atenolol 50 mg p.o. a.m., calcium carbonate-vitamin D 1 tablet p.o. b.i.d., cetirizine 10 mg p.o. daily, colestipol 2 grams p.o. b.i.d., cranberry extract 300 mg p.o. b.i.d., vitamin B12 100 mcg p.o. a.m., dicyclomine 20 mg p.o. q.i.d., famotidine 40 mg p.o. a.m., fluocinonide topical b.i.d., Flonase 2 sprays intranasally a.m. and p.m., furosemide 20 mg p.o. a.m., gabapentin 300 mg p.o. daily, ipratropium bromide 2 sprays intranasally q.i.d., lamotrigine 150 mg p.o. b.i.d., levothyroxine 125 mcg p.o. a.m., lithium carbonate 450 mg p.o. at bedtime, Ativan 1 mg p.o. q.6 hours p.r.n., Cozaar 100 mg p.o. a.m., meclizine 50 mg p.o. t.i.d. p.r.n., multivitamins 1 tablet p.o. a.m., neomycin-polymyxin HC 1 drop in the ear 2 times a week, omega fish oil 1 dose a.m., omeprazole 20 mg p.o. a.m. and bedtime, Zofran 8 mg p.o. q.8 hours p.r.n., pilocarpine 5 mg p.o. t.i.d., pravastatin 80 mg p.o. at bedtime, probiotic 1 tablet p.o. b.i.d., simethicone 80 mg p.o. b.i.d. p.r.n., tramadol 50-100 mg p.o. q.4 hours p.r.n., trazodone 200 mg at bedtime, turmeric root extract 500 mg p.o. b.i.d., vancomycin 125 mg p.o. a.m., Vilazodone 10 mg p.o. p.m. FAMILY HISTORY: Significant for mother had hypertension. Father had heart disease and diabetes. SOCIAL HISTORY: , lives with her . No smoking, no alcohol, no drug use. REVIEW OF SYMPTOMS: As per HPI. Rest of the review of systems negative. PHYSICAL EXAMINATION: GENERAL: The patient is of moderate build, not in acute distress. VITAL SIGNS: Temperature 36.8, pulse 71, respiratory rate 16, blood pressure 108/67, oxygen 96% on room air. HEENT: Pupils equal, round, reactive to light. Oral mucosa moist. NECK: No JVD seen, no neck masses seen. CARDIOVASCULAR: S1, S2, regular rate and rhythm, no murmur, no gallop. RESPIRATORY SYSTEM: Normal AP diameter. No accessory muscle use. No wheezing, no crackles. ABDOMEN: Soft, bowel sounds present, nontender. No distention. CENTRAL NERVOUS SYSTEM: Cranial nerves II-XII grossly nonfocal. EXTREMITIES: Left upper extremity is edematous and erythema seen. Moves extremities. LABORATORY DATA: WBC 11.8, hemoglobin 13.4, hematocrit 38.2, platelets 269. Sodium 140, potassium 3.6, chloride 106, bicarb 24, BUN 6, creatinine 1.2, serum glucose 121, calcium 9.1, total bilirubin 0.5, AST 24, ALT 43, alkaline phosphatase 90, total creatine kinase 44, CK-MB less than 1. TSH 1.5. Urinalysis positive for nitrite and positive for leukocyte esterase and +4 bacteria. [place] level 1. SARS-CoV2 RNA negative. CT of the head: Old punctate lacunar infarct within the right cerebellar hemisphere. No acute intracranial abnormalities seen. Chest x-ray: No significant change compared to prior study, no acute process, stable cardiomegaly. ASSESSMENT AND PLAN: This is a 74-year-old female who presents with dizziness and also had fever and chills at home. 1. Dizziness: Could be secondary to urinary tract infection. The patient has a history of on and off speech issues, thought to be from her chemotherapy. She MRI of the head in 01/2018 showing mild thickening with increased enhancement of the pachymeningitis. At that time, lumbar puncture was okay, did not get a followup MRI. We will follow with the MRI to rule out any stroke also and speech evaluation and also carotid Doppler, echocardiogram and consult neurology. Monitor in the telemetry floor. 2. Urinary tract infection: Antibiotics, started on Rocephin. Follow the cultures. 3. Left upper extremity chronic lymphedema, also some erythematous changes: We will follow with Doppler, also getting antibiotics. We will monitor. 4. History of breast cancer, status post mastectomy and chemotherapy. 5. Hyperlipidemia: Continue statin. 6. Hypertension: Continue home medications of amlodipine, Cozaar, atenolol Lasix. Monitor the blood pressure. 7. Gastroesophageal reflux disease: Continue famotidine and omeprazole. 8. History of chronic kidney disease: Baseline creatinine around 1. On Lasix 20 mg daily and currently creatinine is 1.2. We will follow the labs 9. History of chronic Clostridium difficile: On chronic suppressive therapy with vancomycin 125 mg p.o. daily and probiotic. Plan for fecal transplantation which is held because of the COVID pandemic. 10. Hypothyroidism: Continue Synthroid. 11. Bipolar depression: On lithium carbonate and Lamictal. 12. Anxiety: On Ativan p.r.n. 13. Deep venous thrombosis prophylaxis: Sequential compression devices for now. DISPOSITION: Admit to tele floor. Expect to discharge home and follow with family doctor. PT and OT prior to discharge. Social service will help with discharge planning. Level 1, full code. MTDD
[2020-05-21] MEDS ORDERED: GADOBUTROL 65ML VIAL IV ONE (12:09)
--- NOTE | 2020-05-21 12:15 | Magnetic Resonance Report ---
MRI OF THE BRAIN WITHOUT AND WITH IV CONTRAST CLINICAL HISTORY: Dizziness. Possible stroke. ABNORMAL PRIOR MRI. Headache COMPARISON STUDY: 01/28/2018, CT scan dated 05/21/2020 TECHNIQUE: MRI of the brain was performed from the vertex to the skull base utilizing various T1 and T2 weighted sequences. Following the IV administration of 9 mL of Gadavist contrast, additional enhan senait images were obtained. FINDINGS: Sagittal T1, axial diffusion, proton density and T2 weighted axial, coronal FLAIR, and pre and post a xial T1-weighted images were acquired. These were supplemented with post gadolinium coronal T1 weight ed images. No intra or extra-axial mass lesions are visualized. Axial diffusion-weighted images reveal no evidence of acute or subacute infarction. There is no evidence of ventricular dilatation. Proton density T2-weighted and FLAIR images reveal scattered foci of increased T2 signal within the w loraine matter, likely on a small vessel basis. There is an old lacunar infarct within the right cerebel lar hemisphere There are no abnormal flow voids. Meningeal enhancement is less pronounced than on the prior 2018 study and is unchanged from 2015. The findings are unlikely to be of acute clinical significance. IMPRESSION: 1. No acute intracranial findings 2. No evidence of intracranial mass 2. No evidence of acute or subacute infarction 4. Stable white matter disease likely small vessel ischemic basis ACT 112: Negative or not required by law. Electronically signed by: Oliverio Marmolejo M.D. 05/21/2020 12:14 PM
--- NOTE | 2020-05-21 12:49 | Ultrasound Report ---
US venous doppler UE LT CLINICAL HISTORY: Left arm swelling and edema. COMPARISON STUDY: No previous studies for comparison. FINDINGS: No intraluminal thrombus was visualized. The internal jugular, subclavian, axillary, cephal ic, brachial, basilic, radial, and ulnar veins were patent. IMPRESSION: No evidence of left upper extremity DVT. ACT 112: Negative or not required by law. Electronically signed by: Oliverio Marmolejo M.D. 05/21/2020 12:48 PM
--- NOTE | 2020-05-21 12:52 | Ultrasound Report ---
BILATERAL CAROTID DOPPLER STUDY HISTORY: Dizziness. COMPARISON: Neck CTA 01/27/2018. TECHNIQUE: Real-time, grayscale, and color Doppler sonography of the carotid arteries was performed. Imaging reviewed in the transverse and longitudinal planes. All measurements were calculated based on NASCET criteria. FINDINGS: Antegrade flow is seen in the bilateral vertebral arteries. The brachial pressures were not obtained. Moderate right and mild left carotid bifurcation calcified plaque. The peak systolic velocity within the right ICA is 80 cm/s. The right systolic ratio is 1.3. The peak systolic velocity within the left ICA is 92 cm/s. The left systolic ratio is 1.4. IMPRESSION: No hemodynamically significant stenosis seen within the carotid arteries. ACT 112: Negative or not required by law. Electronically signed by: Kurt Lovett M.D. 05/21/2020 12:50 PM
[2020-05-21] MEDS ORDERED: VANCOMYCIN HCL 1,000 MG in SODIUM CHLORIDE 0.9% 250 ML IV SCH (13:20)
[2020-05-21] MEDS ORDERED: VANCOMYCIN CONSULT ACTIVE PRN (13:20)
[2020-05-21] MEDS ORDERED: VANCOMYCIN HCL 2,000 MG in SODIUM CHLORIDE 0.9% 500 ML IV STA (13:49)
--- NOTE | 2020-05-21 14:00 | Pharmacy Report ---
Pharmacy Abx Initial Consult - Date of Service May 21, 2020 - Pharmacy Dosing Scope Date of Consult: 05/21/20 Consultation requested by: Dr. Cross Pharmacy is consulted to initiate Vancomycin IV dosing therapy, order appropriate labs and adjust drug dose/frequency. - Subjective The patient is a 74 year old F admitted on 05/21/20 07:18. - Objective Height: 5 ft 7 in Weight: 90.2 kg Vital Signs (Past 12hrs): Vital Signs Temp Pulse Pulse Resp BP BP BP 05/21/20 13:27 36.9 C 68 18 126/77 05/21/20 11:49 78 05/21/20 08:08 36.8 C 71 16 108/67 05/21/20 07:56 05/21/20 07:40 67 115/67 05/21/20 06:00 73 17 99/57 L 05/21/20 05:31 76 19 05/21/20 05:30 78 21 113/62 05/21/20 05:26 78 22 113/65 05/21/20 05:14 82 23 122/65 05/21/20 04:22 89 21 140/75 05/21/20 04:15 37.4 C 89 19 140/75 05/21/20 04:06 Pulse Ox 05/21/20 13:27 94 05/21/20 11:49 05/21/20 08:08 96 05/21/20 07:56 96 05/21/20 07:40 95 05/21/20 06:00 90 05/21/20 05:31 92 05/21/20 05:30 92 05/21/20 05:26 92 05/21/20 05:14 94 05/21/20 04:22 94 05/21/20 04:15 91 05/21/20 04:06 90 Lab Results (24hrs): Laboratory Tests (24 Hours) 05/21/20 05/21/20 04:39 04:39 WBC 11.86 H Neut # (Auto) 10.80 H Creatinine 1.27 H Est Cr Clr Drug Dosing 46.4 Total Creatine Kinase 44 Micro Results: 05/21/20 04:50 Urine Culture - Pending Urine,Straight Cath - Risk Factors for Resistance * None - Assessment & Plan Assessment 74 year old F admitted secondary to dizziness * Listed as having a history of chronic uti's. * Mild leukocytosis of 11.9k. SCr near baseline at 1.27 mg/dL. Not febrile. * Urine culture pending. * Ceftriaxone for UTI/Cellulitis and Vancomycin for UTI/Cellulitis Plan Vancomycin for treatment of Cellulitis Vancomycin IV * Patient meets criteria for vancomycin AUC dosing nomogram * AUC/MARQUIS is the preferred PK/PD target for vancomycin * Target AUC/MARQUIS = 400-600 * AUC guided dosing is effective and associated with decreased risk of nephrotoxicity Pharmacy will continue to follow and will adjust dose/frequency as necessary. Thank you.
--- NOTE | 2020-05-21 15:27 | Neurology Consultation ---
Date of Consultation May 21, 2020 Assessment & Plan (1) Cellulitis of left upper extremity: 1. DVT negative left UE- cellulitis Present on Admission?: Yes (2) Clostridium difficile enteritis: 1. known c diff- continue treatment with oral vancomycin Present on Admission?: Yes (3) UTI (urinary tract infection): 1. UA- appear to have infection- treat to culture Present on Admission?: Yes (4) Dizziness: 1. MRI no new stroke 2. likely multi factorial with UTI, history of URI and c diff infection 3. no further work up from neurology stand point 4. aspirin 81 mg continue 5. optimize HTN, HLD, LDL <70 6. PT/OT for discharge needs 7. will sign off for now will be available for questions concerns Present on Admission?: Yes Supervising Physician Co-Signing Physician Notes Patient was seen and examined. Agree with Sissy Pearl PA-C as noted below. Patient reporting fatigue today and states she did not sleep well. She is also concerned with the redness of her left arm. She denies dizziness. On examine she has no nystagmus. Left arm increased calor. I did review her MRI brain and my impression is chronic microvacular ischemic changes. I do not believe the dizziness last evening was due to a vascular etiology such as a stroke or TIA. No additional neurology work up necessary. Please call with any additional questions or concerns. History of Present Illness Reason for Consultation: dizziness, cerebellar infarct on ct scan chronic? Requesting Physician: Pascual Cross DO Attending Physician: Pascual Cross DO History of Present Illness Mary is a 74 year old female with PMH HLD, hypothyroidism, nonallergic rhinitis, chronic cough, chemical pneumonitis, HTN, GERD, vitamin B12 deficiency, esophageal dysphagia, chronic interstitial cystitis, bilateral nephritis, CKD III, post-mastectomy lymphedema syndrome, malignant neoplasm of axillary lymph nodes, major depression, bipolar depression, recurrent UTIs. She presents to [facility] ED with dizziness. She started feeling dizzy around 1:00- 2:00a.m., and had a fever and chills. CT scan showed right chronic cerebellar infarct and question of CVA, so we admitted her for stroke workup and also UTI treatment. COVID is negative. She is currently being treated for C diff at home with vancomycin. denies CP, SOB, abdominal pain, +cough x 2 weeks, nausea Allergies Allergy/AdvReac Type Severity Reaction Status Date / Time ciprofloxacin Allergy Severe HIVES Verified 02/28/20 09:55 metronidazole Allergy Intermediate hives Verified 05/21/20 05:41 Sulfa (Sulfonamide Allergy Intermediate HIVES Verified 05/21/20 05:41 Antibiotics) Quinolones Allergy Mild CIPRO Verified 02/28/20 09:55 baclofen AdvReac Severe NEURO Verified 05/21/20 05:41 SYMPTOMS morphine AdvReac Severe DELIRIUM Verified 02/28/20 09:55 zolpidem AdvReac Mild delusions Verified 05/21/20 05:41 pantoprazole AdvReac Unknown migraines Verified 05/21/20 05:41 Home Medications Medication Instructions Recorded Confirmed Type aspirin [Aspirin Low Dose] 81 mg PO QAM #0 tab 11/17/11 05/21/20 History levothyroxine 125 mcg PO QAM #0 02/04/13 05/21/20 History tramadol 50 - 100 mg PO Q4 PRN #0 02/04/13 05/21/20 History atenolol 50 mg PO QAM #0 05/24/14 05/21/20 History lithium carbonate 450 mg PO HS #0 05/24/14 05/21/20 History [id number] 1 drp OTIC (EAR) 2XWK #0 05/24/14 05/21/20 History pravastatin 80 mg PO HS #0 05/24/14 05/21/20 History multivitamin [Multiple Vitamins] 1 tab PO QPM #0 tab 04/22/15 05/21/20 History cranberry extract 300 mg PO BID #0 07/07/16 05/21/20 History cyanocobalamin (vitamin B-12) 100 mcg PO QAM #0 tab 07/07/16 05/21/20 History gabapentin 300 mg PO TID #0 cap 07/07/16 05/21/20 History omeprazole magnesium 20 mg PO AMHS #0 cap 07/07/16 05/21/20 History Probiotic 3,000 mmu cells PO BID #0 12/03/16 05/21/20 History ascorbic acid (vitamin C) 1 g PO BID #0 12/03/16 05/21/20 History calcium carbonate-vitamin D3 1 tab PO BID #0 12/03/16 05/21/20 History [Calcium 500 + D] fluticasone propionate 2 spray INTRANASAL AMPM #0 12/03/16 05/21/20 History lamotrigine 150 mg PO AMPM #0 tab 03/28/17 05/21/20 History lorazepam 1 mg PO Q6H PRN #0 tab 03/28/17 05/21/20 History dicyclomine 20 mg PO QID #0 07/01/17 05/21/20 History ipratropium bromide 2 spray INTRANASAL QID #0 07/01/17 05/21/20 History Soothe XP 2 drp OPHTHALMIC (EYE) BID 01/26/18 05/21/20 History cetirizine 10 mg PO DAILY 01/26/18 05/21/20 History furosemide 20 mg PO QAM 01/26/18 05/21/20 History meclizine 50 mg PO TID PRN 01/26/18 05/21/20 History ondansetron HCl 8 mg PO Q8 PRN 01/26/18 05/21/20 History simethicone [Gas Relief 80 80 mg PO BID PRN 01/26/18 05/21/20 History (simethicone)] famotidine 40 mg PO QAM 02/08/20 05/21/20 History trazodone 200 mg PO HS 02/08/20 05/21/20 History turmeric root extract 500 mg PO BID 02/08/20 05/21/20 History vancomycin [Vancocin] 125 mg PO QAM 02/08/20 05/21/20 History amlodipine 10 mg PO QAM 05/21/20 05/21/20 History colestipol 2 g PO BID 05/21/20 05/21/20 History fluocinonide 1 applic TOPICAL BID 05/21/20 05/21/20 History losartan [Cozaar] 100 mg PO QAM 05/21/20 05/21/20 History omega 4-swk-kdv-fish oil 1 dose PO QAM 05/21/20 05/21/20 History pilocarpine HCl 5 mg PO TID 05/21/20 05/21/20 History vilazodone [Viibryd] 10 mg PO QPM 05/21/20 05/21/20 History Patient History Medical History Anxiety Aspiration pneumonia Cellulitis of upper extremity recurrent, Dr Castellano Depression Fall Fatty liver Finger pain, left GERD (gastroesophageal reflux disease) History of bipolar disorder History of breast cancer (03/14/13) s/p chemo and radiation Hyperlipidemia Hypertension Hypokalemia Hypothyroidism Lumbar stenosis with neurogenic claudication TIA (transient ischemic attack) (05/24/14) Surgical History H/O colonoscopy "09/21/2014- adenomatous polyps, diverticulosis" H/O cystoscopy H/O dilation and curettage History of cataract surgery History of lymph node dissection of left axilla (03/2013) "03/14/2013- Left axillary lymph node dissection, Dx: metastatic carcinoma seen in 16 of 21 examined left lymph nodes. 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: No Beliefs That Will Affect Care: None marital status: Current Living Situation: Spouse Other Information That Helps Us Care for You: No Feels Safe at Home: Yes Safety Concerns: Feels Safe At This Time Assistive Devices: Glasses Review of Systems Review of Systems: All systems reviewed & are unremarkable except as noted in HPI & below and All systems reviewed & are unremarkable except as noted in Subjective Physical Exam Physical Exam: Physical Exam: Constitutional: appearance nourished, healthy flat affect, appear tired Ears, Nose, Mouth and Throat: mucous membranes moist, no injection and skin normal, eyes normal Cardiovascular: normal S-1 and S-2 and regular rate and rhythm Respiratory: course breath sounds Musculoskeletal: left arm edema and erythema Skin: erythema left arm Eyes: extraocular muscles intact (EOMI) and pupils equal, round and reactive to light (PERRL) NEUROLOGIC EXAMINATION: Mental status: Alert and interactive Oriented location Oriented to person Speech fluent with no evidence of aphasia Cranial Nerves facial symmetry smile and eye brow raise Reflexes: Deep tendon reflexes were symmetrical and graded 2/5. Sensory: intact to light touch Coordination: finger to nose Gait/Stance: Posture sitting up in bed Motor: Negative for pronator drift of out stretched arms with eyes closed. 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, hip flex plantar flex ext 5/5 Results & Data ([facility]) Vital Signs (Past 12 Hours) Vital Signs Temp Pulse Pulse Resp BP BP BP 05/21/20 15:00 37.1 C 66 20 112/69 05/21/20 13:27 36.9 C 68 18 126/77 05/21/20 11:49 78 05/21/20 08:08 36.8 C 71 16 108/67 05/21/20 07:56 05/21/20 07:40 67 115/67 05/21/20 06:00 73 17 99/57 L 05/21/20 05:31 76 19 05/21/20 05:30 78 21 113/62 05/21/20 05:26 78 22 113/65 05/21/20 05:14 82 23 122/65 05/21/20 04:22 89 21 140/75 05/21/20 04:15 37.4 C 89 19 140/75 05/21/20 04:06 Pulse Ox 05/21/20 15:00 93 05/21/20 13:27 94 05/21/20 11:49 05/21/20 08:08 96 05/21/20 07:56 96 05/21/20 07:40 95 05/21/20 06:00 90 05/21/20 05:31 92 05/21/20 05:30 92 05/21/20 05:26 92 05/21/20 05:14 94 05/21/20 04:22 94 05/21/20 04:15 91 05/21/20 04:06 90 Laboratory Results Abnormal lab results 05/21/20 05/21/20 05/21/20 Range/Units 04:39 04:39 04:50 WBC 11.86 H (4.8-10.8) K/uL Neut # (Auto) 10.80 H (1.4-6.5) K/uL Lymph # (Auto) 0.52 L (1.2-3.4) K/uL Immature Gran # (Auto) 0.03 H (0.00-0.02) K/uL BUN 6 L (7-18) mg/dl Creatinine 1.27 H (0.6-1.2) mg/dl BUN/Creatinine Ratio 4.4 L (10-20) Glucose 121 H (70-99) mg/dl Urine Nitrite Positive A (Negative) Ur Leukocyte Esterase 1+ H (Negative) Urine WBC 10-30 H (0-5) /hpf Urine Bacteria 4+ H (Negative) Diagnostic Findings MRI brain-No acute intracranial findings No evidence of intracranial mass No evidence of acute or subacute infarction Stable white matter disease likely small vessel ischemic basis carotid doppler-No hemodynamically significant stenosis seen within the carotid arteries. extremity doppler- No evidence of left upper extremity DVT.
[2020-05-21] MEDS: LITHIUM CARBONATE 450 MG TABCR PO SCH (21:27)
[2020-05-21] MEDS: MULTIVITAMIN TAB PO SCH (21:28)
[2020-05-21] MEDS: PRAVASTATIN SOD 40 MG TAB PO SCH (21:29)
[2020-05-21] MEDS: traZODone HCL 100 MG TAB PO SCH (21:30)
[2020-05-22] MEDS: VANCOMYCIN HCL 1,000 MG in SODIUM CHLORIDE 0.9% 250 ML IV SCH ×2 (02:42→14:06)
[2020-05-22] MEDS ORDERED: cefTRIAXone SODIUM 2,000 MG in DEXTROSE 5% 50 ML IV SCH (05:00)
[2020-05-22 06:23] LABS: Hematocrit (blood only) 32.9 % (37-47); Hemoglobin 11.1 g/dL (12.0-16.0); Immature Granulocytes # (auto) 0.02 K/uL (0.00-0.02); Immature Granulocytes % (auto) 0.2 %; Lymphocytes # (auto) 1.38 K/uL (1.2-3.4); Lymphocytes % (auto) 15.1 %; Mean Corpuscular Hemoglobin 30.7 pg (25-34); Mean Corpuscular Hgb Conc 33.7 g/dL (32-36); Mean Corpuscular Volume 90.9 fL (80-100); Mean Platelet Volume 8.5 fL (7.4-10.4); Monocytes % (auto) 6.6 %; Neutrophils # (auto) 7.13 K/uL (1.4-6.5); Neutrophils % (auto) 78.1 %; Platelet Count 205 K/uL (130-400); RDW Coefficient of Variation 13.8 % (11.5-14.5); RDW Standard Deviation 45.8 fL (36.4-46.3); Red Blood Count 3.62 M/uL (4.2-5.4); White Blood Count 9.13 K/uL (4.8-10.8)
[2020-05-22] MEDS: LEVOTHYROXINE SODIUM 125 MCG TABLET PO SCH (06:33)
[2020-05-22 07:01] LABS: BUN Creatinine Ratio 9.5 (10-20); Calcium 8.3 mg/dl (8.5-10.1); Creatinine Clr Calc Pharmacy 57.7 ml/min; Est GFR (African American) 63.6; Est GFR (Non-African American) 54.9; Potassium 3.7 mmol/L (3.5-5.1)
[2020-05-22] MEDS: FUROSEMIDE 20 MG TAB PO SCH (08:35)
[2020-05-22] MEDS: FLUTICASONE PROPIONATE NA SPR 16 GM BTL SCH ×2 (08:35→20:28)
[2020-05-22] MEDS: LOSARTAN POTASSIUM 50 MG TAB PO SCH (08:36)
[2020-05-22] MEDS: CETIRIZINE HCL 10 MG TABLET PO SCH (08:36)
[2020-05-22] MEDS: ASCORBIC ACID 500 MG TAB PO SCH ×2 (08:36→20:20)
[2020-05-22] MEDS: PILOCARPINE HCL 5 MG TABLET PO SCH ×3 (08:37→20:25)
[2020-05-22] MEDS: ASPIRIN 81 MG ECTAB PO SCH (08:37)
[2020-05-22] MEDS: amLODIPine BESYLATE 5 MG TAB PO SCH (08:37)
[2020-05-22] MEDS: CYANOCOBALAMIN (VITAMIN B-12) 100 MCG TABLET PO SCH (08:37)
[2020-05-22] MEDS: ATENOLOL 50 MG TABLET PO SCH (08:38)
[2020-05-22] MEDS: FAMOTIDINE 40 MG TABLET PO SCH (08:39)
[2020-05-22] MEDS: ADVANCED PROBIOTIC 1250 MG CAPSULE PO SCH ×2 (08:39→20:21)
[2020-05-22] MEDS: PANTOprazole 40 MG TAB PO SCH ×2 (08:39→20:23)
[2020-05-22] MEDS: CALCIUM 600MG + VIT D 400 IU TAB PO SCH ×2 (08:40→20:25)
[2020-05-22] MEDS: GABAPENTIN 300 MG CAP PO SCH ×3 (08:40→20:20)
[2020-05-22] MEDS: DICYCLOMINE HCL 20 MG TAB PO SCH ×4 (08:41→20:19)
[2020-05-22] MEDS: lamoTRIgine 100 MG TAB PO SCH ×2 (08:42→20:22)
[2020-05-22] MEDS: RASPBERRY SYRUP 5 ML UDP PO SCH (08:43)
[2020-05-22] MEDS: VANCOMYCIN HCL 125 MG/2.5ML SOLN PO SCH (08:55)
[2020-05-22] MEDS ORDERED: NEOMYCIN/POLYMYX/HYDROCORT OT SOLN 10 ML BTL OT SCH (09:00)
[2020-05-22] MEDS: COLESTIPOL HCL 1 GM TAB PO SCH ×2 (10:45→22:07)
[2020-05-22] MEDS: SODIUM CHLORIDE 0.9% 1000ML 1,000 ML IV SCH (10:46)
--- NOTE | 2020-05-22 14:28 | Hospitalist Progress Note ---
Date of Service May 22, 2020 Assessment & Plan (1) UTI (urinary tract infection): Continue Rocephin pending urine culture results. (2) Cellulitis of left upper extremity: She has seen improvement on IV vancomycin in the last 24 hours we will co ntinue this for another 24 hours pending the results of urine culture studies to better identify appropriate combined oral antibiotic therapy (3) Bipolar 1 disorder: chronic, stable, lithium within therapeutic range. Cont home medications. (4) Hypertension: At goal, cont current management. (5) Hypothyroidism: chronic, cont Synthroid at home dosing. (6) History of breast cancer: chronic LUE lymphedema related to this treatment. 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 Frustrated with current outpatient GI plans. Requesting inpatient consultation for further discussion on direction of treatment. For now, continue Vanco PO daily. (8) DVT prophylaxis: SCDs, will add Lovenox. Encouraged to ambulate with assist as needed Full Code Dispo-apparently feeling better now and without acute stroke. Neuro has signed off. She is tolerating PO. Will ensure that her cellulitis is improving on abx therapy prior to sending her home. Adelaida [facility]za [facility]tic[facility]ated Discharge Date Admission Date: May 21, 2020 Subjective 74-year-old female presented with concerns for weakness and fatigue. Initial stroke work-up including MRI of the brain did not reveal any acute new stroke. Microvascular disease is present. This was discussed with the patient. She states she is feeling better since admission and is currently afebrile. She has chronic issues with urination including frequent urination and urinary urgency, but denies any acute changes to indicate an acute urinary tract infection. She does have a red swollen warm left upper extremity and reports a history of lymphedema in this arm with a history of recurrent infections here, also. She feels her arm is looking better on current antibiotic therapy. She denies any diarrhea but is frustrated with current GI management of her chronic C. difficile infection. She has been unsuccessful in communicating this frustration and is interested in an inpatient consultation while she is hospitalized to sort the direction of treatment moving forward. She is eating and reports ambulating without issues. Review of Systems Review of Systems: All systems reviewed & are unremarkable except as noted in Subjective Physical Exam Physical Exam: CONSTITUTIONAL: WNWD, vitals as above, generally well- appearing EYES: normal conjunctivae, no scleral icterus ENT: external ear and nose normal, MMM RESPIRATORY: clear to auscultation bilaterally, no crackles, rales or wheezes, normal respiratory effort CARDIOVASCULAR: regular rate and rhythm, S1 and 2 heard without murmurs, gallops or rubs, no JVD, no peripheral edema GASTROINTESTINAL: soft, nontender, nondistended, no guarding MUSCULOSKELETAL: strength 5/5 throughout, head is normocephalic and atraumatic, neck supple, normal palpation of chest wall without tenderness SKIN: warm and dry NEUROLOGIC: CN 2-12 grossly intact, normal cognition, normal speech, no gross focal deficits. PSYCHIATRIC: alert cooperative and oriented to person, place and time. Results & Data Results & Data ([facility]) Vital Signs (Past 12 Hours) Vital Signs Temp Pulse Pulse Resp BP Pulse Ox 05/22/20 12:48 95 05/22/20 11:21 36.8 C 66 18 125/74 94 05/22/20 07:34 37.3 C 71 18 123/74 93 05/22/20 04:14 37.0 C 78 18 121/66 92 Laboratory Results Short CBC 05/22/20 Range/Units 05:58 WBC 9.13 (4.8-10.8) K/uL Hgb 11.1 L (12.0-16.0) g/dL Hct 32.9 L (37-47) % Plt Count 205 (130-400) K/uL BMP 05/22/20 05:58 Sodium 143 Potassium 3.7 Chloride 112 H Carbon Dioxide 24 BUN 10 Creatinine 1.02 Glucose 101 H Calcium 8.3 L Medications Administered Current Inpatient Medications Acetaminophen (Acetaminophen 325 Mg Tab) 650 mg PO Q4H PRN PRN Reason: Pain or Fever Stop: 06/20/20 07:55 Amlodipine Besylate (Amlodipine Besylate 5 Mg Tab) 10 mg PO QAM [facility] Stop: 06/20/20 08:59 Last Admin: 05/22/20 08:37 Dose: 10 mg Documented by: Ascorbic Acid (Ascorbic Acid 500 Mg Tab) 1,000 mg PO BID [facility] Stop: 06/20/20 08:59 Last Admin: 05/22/20 08:36 Dose: 1,000 mg Documented by: Aspirin (Aspirin 81 Mg Ectab) 81 mg PO QAM [facility] Stop: 06/20/20 08:59 Last Admin: 05/22/20 08:37 Dose: 81 mg Documented by: Atenolol (Atenolol 50 Mg Tablet) 50 mg PO QAM [facility] Stop: 06/20/20 08:59 Last Admin: 05/22/20 08:38 Dose: 50 mg Documented by: Cetirizine HCl (Cetirizine Hcl 10 Mg Tablet) 10 mg PO DAILY [facility] Stop: 06/20/20 08:59 Last Admin: 05/22/20 08:36 Dose: 10 mg Documented by: Colestipol HCl (Colestipol Hcl 1 Gm Tab) 2 gm PO BID@1000,2200 [facility] Stop: 06/20/20 09:59 Last Admin: 05/22/20 10:45 Dose: 2 gm Documented by: Cyanocobalamin (Cyanocobalamin (Vitamin B-12) 100 Mcg Tablet) 100 mcg PO [facility] Stop: 06/20/20 08:59 Last Admin: 05/22/20 08:37 Dose: 100 mcg Documented by: Dicyclomine HCl (Dicyclomine Hcl 20 Mg Tab) 20 mg PO QID [facility] Stop: 06/20/20 08:59 Last Admin: 05/22/20 14:09 Dose: 20 mg Documented by: Famotidine (Famotidine 40 Mg Tablet) 40 mg PO QAM [facility] Stop: 06/20/20 08:59 Last Admin: 05/22/20 08:39 Dose: 40 mg Documented by: Fluticasone Propionate (Fluticasone Propionate Na Spr 16 Gm Btl) 2 sprays NA BID [facility] Stop: 06/20/20 08:59 Last Admin: 05/22/20 08:35 Dose: 2 sprays Documented by: Furosemide (Furosemide 20 Mg Tab) 20 mg PO QAM [facility] Stop: 06/20/20 08:59 Last Admin: 05/22/20 08:35 Dose: 20 mg Documented by: Gabapentin (Gabapentin 300 Mg Cap) 300 mg PO TID [facility] Stop: 06/20/20 08:59 Last Admin: 05/22/20 14:09 Dose: 300 mg Documented by: Sodium Chloride (Nss 1000ml) 1,000 mls @ 75 mls/hr IV .[id number] [facility] Stop: 06/20/20 07:55 Last Admin: 05/22/20 10:46 Dose: 75 mls/hr Documented by: Vancomycin HCl 1,000 mg/ (Sodium Chloride) 270 mls @ 200 mls/hr IV Q12H [facility] Stop: 05/29/20 01:59 Last Admin: 05/22/20 14:06 Dose: 200 mls/hr Documented by: Ceftriaxone Sodium 2,000 mg/ (Dextrose) 70 mls @ 140 mls/hr IV Q24H [facility]; Protocol Stop: 05/31/20 05:59 Lactobacillus Acidoph/Casei/Rhamnos (Advanced Probiotic 1250 Mg Capsule) 1 cap PO BID [facility] Stop: 06/20/20 08:59 Last Admin: 05/22/20 08:39 Dose: 1 cap Documented by: Lamotrigine (Lamotrigine 100 Mg Tab) 150 mg PO BID [facility] Stop: 06/20/20 08:59 Last Admin: 05/22/20 08:42 Dose: 150 mg Documented by: Levothyroxine Sodium (Levothyroxine Sodium 125 Mcg Tablet) 125 mcg PO DAILYBB [facility] Stop: 06/20/20 08:59 Last Admin: 05/22/20 06:33 Dose: 125 mcg Documented by: Richton Carbonate (Richton Carbonate 450 Mg Tabcr) 450 mg PO HS [facility] Stop: 06/20/20 20:59 Last Admin: 05/21/20 21:27 Dose: 450 mg Documented by: Lorazepam (Lorazepam 1 Mg Tab) 1 mg PO Q6H PRN PRN Reason: Anxiety Stop: 06/20/20 08:21 Last Admin: 05/21/20 10:40 Dose: 1 mg Documented by: Losartan Potassium (Losartan Potassium 50 Mg Tab) 100 mg PO QAM [facility] Stop: 06/20/20 08:59 Last Admin: 05/22/20 08:36 Dose: 100 mg Documented by: Meclizine HCl (Meclizine Hcl 25 Mg Tab) 25 mg PO TID PRN PRN Reason: Dizziness Stop: 06/20/20 08:23 Miscellaneous (Order Awaiting Action) 1 ea N/A QS [facility] Stop: 06/20/20 15:59 Last Admin: 05/22/20 08:34 Dose: Not Given Documented by: Miscellaneous (Vilazodone [Viibryd] 10 Mg Tablet~Order Awaiting Action) 1 ea N/A QS [facility] Stop: 06/20/20 15:59 Last Admin: 05/22/20 08:34 Dose: Not Given Documented by: Miscellaneous (Ipratropium [place] 0.03 % [place],Non-Aerosol~Order Awaiting Action) 1 ea N/A QS [facility] Stop: 06/20/20 15:59 Last Admin: 05/22/20 08:34 Dose: Not Given Documented by: Miscellaneous (Order Awaiting Action) 1 ea N/A QS [facility] Stop: 06/20/20 15:59 Last Admin: 05/22/20 08:34 Dose: Not Given Documented by: Miscellaneous Information (Pharmacist Discharge Med Rec Consult) 1 ea N/A UD PRN PRN Reason: Consult Stop: 06/20/20 07:55 Miscellaneous Information (Vancomycin Consult Active) 1 ea N/A UD PRN PRN Reason: Consult Stop: 06/20/20 13:19 Multivitamins (Multivitamin Tab) 1 tab PO QPM [facility] Stop: 06/20/20 20:59 Last Admin: 05/21/20 21:28 Dose: 1 tab Documented by: Multivitamins/Minerals (Calcium 600mg + Vit D 400 Iu Tab) 1 tab PO BID [facility] Stop: 06/20/20 08:59 Last Admin: 05/22/20 08:40 Dose: 1 tab Documented by: Neomycin/Polymyxin/Hydrocortisone (Neomycin/Polymyx/Hydrocort Ot Soln 10 Ml Btl) 1 drops OT WeSa@0900 [facility] Stop: 06/21/20 08:59 Last Admin: 05/22/20 08:41 Dose: 1 drops Documented by: Nitroglycerin (Nitroglycerin Sl 0.4 Mg/Tab Tab) 0.4 mg SL UD PRN PRN Reason: Chest Pain Stop: 06/20/20 07:55 Ondansetron HCl (Ondansetron Inj 2 Mg/Ml 2 Ml Vial) 4 mg IV Q6H PRN PRN Reason: Nausea Stop: 06/20/20 07:55 Pantoprazole Sodium (Pantoprazole 40 Mg Tab) 40 mg PO BID [facility] Stop: 06/20/20 08:59 Last Admin: 05/22/20 08:39 Dose: 40 mg Documented by: Pilocarpine HCl (Pilocarpine Hcl 5 Mg Tablet) 5 mg PO TID [facility] Stop: 06/20/20 08:59 Last Admin: 05/22/20 14:09 Dose: 5 mg Documented by: Polyethylene Glycol (Polyethylene (Miralax) 17 Gm Pack) 17 gm PO DAILY PRN PRN Reason: Constipation Stop: 06/20/20 07:55 Pravastatin Sodium (Pravastatin Sod 40 Mg Tab) 80 mg PO [facility] Stop: 06/20/20 20:59 Last Admin: 05/21/20 21:29 Dose: 80 mg Documented by: Raspberry (Raspberry Syrup 5 Ml Udp) 5 ml PO QAM [facility] Stop: 06/04/20 08:59 Last Admin: 05/22/20 08:43 Dose: 5 ml Documented by: Simethicone (Simethicone 80 Mg Chew) 80 mg PO BID PRN PRN Reason: Stomach Upset Stop: 06/20/20 07:55 Tramadol HCl (Tramadol Hcl 50 Mg Tablet) 50 - 100 mg PO Q4 PRN PRN Reason: Pain Stop: 06/20/20 07:55 Trazodone HCl (Trazodone Hcl 100 Mg Tab) 200 mg PO [facility] Stop: 06/20/20 20:59 Last Admin: 05/21/20 21:30 Dose: 200 mg Documented by: Vancomycin HCl (Vancomycin Hcl 125 Mg/2.5ml Soln) 125 mg PO QAM [facility] Stop: 06/20/20 08:59 Last Admin: 05/22/20 08:55 Dose: 125 mg Documented by: (1) Hypertension Hypertension type: unspecified Qualified Code(s): I10 - Essential (primary) hypertension
[2020-05-22] MEDS: LITHIUM CARBONATE 450 MG TABCR PO SCH (20:24)
[2020-05-22] MEDS: PRAVASTATIN SOD 40 MG TAB PO SCH (20:26)
[2020-05-22] MEDS: traZODone HCL 100 MG TAB PO SCH (20:27)
[2020-05-22] MEDS: MULTIVITAMIN TAB PO SCH (20:27)
[2020-05-23] MEDS: VANCOMYCIN HCL 1,000 MG in SODIUM CHLORIDE 0.9% 250 ML IV SCH ×2 (02:12→13:59)
[2020-05-23] MEDS ORDERED: cefTRIAXone SODIUM 2,000 MG in DEXTROSE 5% 50 ML IV SCH (06:00)
[2020-05-23] MEDS: LEVOTHYROXINE SODIUM 125 MCG TABLET PO SCH (06:22)
[2020-05-23 06:29] LABS: Hematocrit (blood only) 33.6 % (37-47); Hemoglobin 11.2 g/dL (12.0-16.0); Immature Granulocytes # (auto) 0.04 K/uL (0.00-0.02); Immature Granulocytes % (auto) 0.7 %; Lymphocytes # (auto) 1.22 K/uL (1.2-3.4); Mean Corpuscular Hemoglobin 30.4 pg (25-34); Mean Corpuscular Hgb Conc 33.3 g/dL (32-36); Mean Corpuscular Volume 91.3 fL (80-100); Mean Platelet Volume 8.4 fL (7.4-10.4); Monocytes # (auto) 0.42 K/uL (0.11-0.59); Monocytes % (auto) 7.6 %; Neutrophils # (auto) 3.87 K/uL (1.4-6.5); Neutrophils % (auto) 69.7 %; Platelet Count 217 K/uL (130-400); RDW Coefficient of Variation 13.8 % (11.5-14.5); RDW Standard Deviation 46.3 fL (36.4-46.3); Red Blood Count 3.68 M/uL (4.2-5.4); White Blood Count 5.55 K/uL (4.8-10.8)
[2020-05-23 07:06] LABS: BUN Creatinine Ratio 8.1 (10-20); Calcium 8.6 mg/dl (8.5-10.1); Creatinine Clr Calc Pharmacy 60.4 ml/min; Est GFR (African American) 66.8; Est GFR (Non-African American) 57.6; Potassium 3.8 mmol/L (3.5-5.1)
[2020-05-23] MEDS: ASCORBIC ACID 500 MG TAB PO SCH ×2 (09:37→20:52)
[2020-05-23] MEDS: ASPIRIN 81 MG ECTAB PO SCH (09:37)
[2020-05-23] MEDS: GABAPENTIN 300 MG CAP PO SCH ×3 (09:37→20:55)
[2020-05-23] MEDS: ADVANCED PROBIOTIC 1250 MG CAPSULE PO SCH ×2 (09:37→20:54)
[2020-05-23] MEDS: DICYCLOMINE HCL 20 MG TAB PO SCH ×4 (09:37→20:52)
[2020-05-23] MEDS: CALCIUM 600MG + VIT D 400 IU TAB PO SCH ×2 (09:38→20:53)
[2020-05-23] MEDS: LOSARTAN POTASSIUM 50 MG TAB PO SCH (09:38)
[2020-05-23] MEDS: CYANOCOBALAMIN (VITAMIN B-12) 100 MCG TABLET PO SCH (09:38)
[2020-05-23] MEDS: lamoTRIgine 100 MG TAB PO SCH ×2 (09:38→20:54)
[2020-05-23] MEDS: PANTOprazole 40 MG TAB PO SCH ×2 (09:38→20:52)
[2020-05-23] MEDS: FAMOTIDINE 40 MG TABLET PO SCH (09:38)
[2020-05-23] MEDS: CETIRIZINE HCL 10 MG TABLET PO SCH (09:38)
[2020-05-23] MEDS: FUROSEMIDE 20 MG TAB PO SCH (09:38)
[2020-05-23] MEDS: ATENOLOL 50 MG TABLET PO SCH (09:38)
[2020-05-23] MEDS: PILOCARPINE HCL 5 MG TABLET PO SCH ×3 (09:38→20:52)
[2020-05-23] MEDS: amLODIPine BESYLATE 5 MG TAB PO SCH (09:38)
[2020-05-23] MEDS: RASPBERRY SYRUP 5 ML UDP PO SCH (09:39)
[2020-05-23] MEDS: FLUTICASONE PROPIONATE NA SPR 16 GM BTL SCH ×2 (09:39→20:55)
[2020-05-23] MEDS: CHOLESTYRAMINE LIGHT 4 GM PKT PO SCH ×2 (10:01→20:53)
[2020-05-23] MEDS: VANCOMYCIN HCL 125 MG/2.5ML SOLN PO SCH (10:01)
[2020-05-23] MEDS: ENOXAPARIN INJ 40 MG/0.4 ML SYR SQ SCH (10:01)
--- NOTE | 2020-05-23 13:11 | Gastrointestinal Consultation ---
Date of Consultation May 23, 2020 Assessment & Plan (1) Clostridioides difficile infection: Pt is a 74 y/o female admitted w UTI and cellulitis. Hx of recurrent Cdiff currently on suppressive Vancomycin 125mg daily. Recent outpt stool studies negative for Cdiff. Her diarrhea is improved, stools now semi solid but still increased frequency up to 5x a day. No abd pain , n/v, fever, chills. - Explained to pt again that we currently cannot offer fecal transplant for recurrent Cdiff during COVID19 pandemic . She is agreeable to continue suppressive Vancomycin 125mg daily. If stools get loose again, we will check for Cdiff and cx while she's in house. Otherwise will also try Questran 4mg BID instead of Colestipol to see if we can slow down stool frequency and help form up stools a bit more. Dicyclomine may be used prn abd cramping or stool urgency. Pls recall GI prn if any new questions/concerns Attg add: I interviewed and examined pt reviewed chart and labs. Pt admit with complaint of dizziness, r/o CVA; had incidental complaint of diarrhea with h/o recurrent C diff on chronic suppressive Vanco. Agree with plans for Vanco and Colestid. History of Present Illness Reason for Consultation: Discuss recurrent Cdiff managment Requesting Physician: Dr. Adelaida Garza Attending Physician: Dr. Shobha Rodriguez History of Present Illness Pt is a 74 y/o female currently admitted for Cellulitis and UTI. GI consulted as pt has hx of recurrent Cdiff and currently on suppressive Vancomycin 125mg daily per direction of DEVYN Fung. Pt is unhappy about this however had been explained in the past that unfortunately given current COVID 19 pandemic, we are not providing fecal transplant therapy for pts with recurrent Cdiff. Pt had previously c/o semi formed stools about 5x a day. Given trial of Colestipol which is helped some. Most recent repeat stool studies were negative for Cdiff. She denies fever, chills, abd pain, n/v currently. Prior to admission, she denies recent antibx exposure Allergies Allergy/AdvReac Type Severity Reaction Status Date / Time ciprofloxacin Allergy Severe HIVES Verified 02/28/20 09:55 metronidazole Allergy Intermediate hives Verified 05/21/20 05:41 Sulfa (Sulfonamide Allergy Intermediate HIVES Verified 05/21/20 05:41 Antibiotics) Quinolones Allergy Mild CIPRO Verified 02/28/20 09:55 baclofen AdvReac Severe NEURO Verified 05/21/20 05:41 SYMPTOMS morphine AdvReac Severe DELIRIUM Verified 02/28/20 09:55 zolpidem AdvReac Mild delusions Verified 05/21/20 05:41 pantoprazole AdvReac Unknown migraines Verified 05/21/20 05:41 Home Medications Medication Instructions Recorded Confirmed Type aspirin [Aspirin Low Dose] 81 mg PO QAM #0 tab 11/17/11 05/21/20 History levothyroxine 125 mcg PO QAM #0 02/04/13 05/21/20 History tramadol 50 - 100 mg PO Q4 PRN #0 02/04/13 05/21/20 History atenolol 50 mg PO QAM #0 05/24/14 05/21/20 History lithium carbonate 450 mg PO HS #0 05/24/14 05/21/20 History wfkddydo-wybaeqzaf-XB 1 drp OTIC (EAR) 2XWK #0 05/24/14 05/21/20 History pravastatin 80 mg PO HS #0 05/24/14 05/21/20 History multivitamin [Multiple Vitamins] 1 tab PO QPM #0 tab 04/22/15 05/21/20 History cranberry extract 300 mg PO BID #0 07/07/16 05/21/20 History cyanocobalamin (vitamin B-12) 100 mcg PO QAM #0 tab 07/07/16 05/21/20 History gabapentin 300 mg PO TID #0 cap 07/07/16 05/21/20 History omeprazole magnesium 20 mg PO AMHS #0 cap 07/07/16 05/21/20 History Probiotic 3,000 mmu cells PO BID #0 12/03/16 05/21/20 History ascorbic acid (vitamin C) 1 g PO BID #0 12/03/16 05/21/20 History calcium carbonate-vitamin D3 1 tab PO BID #0 12/03/16 05/21/20 History [Calcium 500 + D] fluticasone propionate 2 spray INTRANASAL AMPM #0 12/03/16 05/21/20 History lamotrigine 150 mg PO AMPM #0 tab 03/28/17 05/21/20 History lorazepam 1 mg PO Q6H PRN #0 tab 03/28/17 05/21/20 History dicyclomine 20 mg PO QID #0 07/01/17 05/21/20 History ipratropium bromide 2 spray INTRANASAL QID #0 07/01/17 05/21/20 History Soothe XP 2 drp OPHTHALMIC (EYE) BID 01/26/18 05/21/20 History cetirizine 10 mg PO DAILY 01/26/18 05/21/20 History furosemide 20 mg PO QAM 01/26/18 05/21/20 History meclizine 50 mg PO TID PRN 01/26/18 05/21/20 History ondansetron HCl 8 mg PO Q8 PRN 01/26/18 05/21/20 History simethicone [Gas Relief 80 80 mg PO BID PRN 01/26/18 05/21/20 History (simethicone)] famotidine 40 mg PO QAM 02/08/20 05/21/20 History trazodone 200 mg PO HS 02/08/20 05/21/20 History turmeric root extract 500 mg PO BID 02/08/20 05/21/20 History vancomycin [Vancocin] 125 mg PO QAM 02/08/20 05/21/20 History amlodipine 10 mg PO QAM 05/21/20 05/21/20 History colestipol 2 g PO BID 05/21/20 05/21/20 History fluocinonide 1 applic TOPICAL BID 05/21/20 05/21/20 History losartan [Cozaar] 100 mg PO QAM 05/21/20 05/21/20 History omega 7-idn-yod-fish oil 1 dose PO QAM 05/21/20 05/21/20 History pilocarpine HCl 5 mg PO TID 05/21/20 05/21/20 History vilazodone [Viibryd] 10 mg PO QPM 05/21/20 05/21/20 History Patient History Medical History Anxiety Aspiration pneumonia Cellulitis of upper extremity recurrent, Dr Castellano Depression Fall Fatty liver Finger pain, left GERD (gastroesophageal reflux disease) History of bipolar disorder History of breast cancer (03/14/13) s/p chemo and radiation Hyperlipidemia Hypertension Hypokalemia Hypothyroidism Lumbar stenosis with neurogenic claudication TIA (transient ischemic attack) (05/24/14) Surgical History H/O colonoscopy "09/21/2014- adenomatous polyps, diverticulosis" H/O cystoscopy H/O dilation and curettage History of cataract surgery History of lymph node dissection of left axilla (03/2013) "03/14/2013- Left axillary lymph node dissection, Dx: metastatic carcinoma seen in 16 of 21 examined left lymph nodes. 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 Beliefs That Will Affect Care: None marital status: Current Living Situation: Spouse Other Information That Helps Us Care for You: No Feels Safe at Home: Yes Safety Concerns: Feels Safe At This Time Assistive Devices: Glasses Review of Systems Review of Systems: All systems reviewed & are unremarkable except as noted in HPI & below Physical Exam Constitutional: WD/WN, vitals as above well groomed, cooperative and comfortable Eyes: PERRL, conjunctivae normal, anicteric sclerae ENMT: external ear and nose normal, oropharynx normal Respiratory: normal respiratory effort, lungs clear to auscultation Cardiovascular: RRR, no murmur, no edema Gastrointestinal (Abdomen): normal bowel sounds, soft, nontender, no hepatosplenomegaly Skin: no rashes, warm and dry no jaundice Psychiatric: A+Ox3, euthymic affect Lymphatic: no lymphedema Results & Data ([facility]) Vital Signs (Past 12 Hours) Vital Signs Temp Pulse Resp BP Pulse Ox 05/23/20 06:57 36.7 C 73 18 151/84 H 93 05/23/20 02:49 36.9 C 68 18 122/68 93
[2020-05-23] MEDS ORDERED: VANCOMYCIN TROUGH ONE (13:30)
--- NOTE | 2020-05-23 15:08 | Pharmacy Report ---
Pharmacy Abx Dose Short Note - Date of Service May 23, 2020 - Assessment & Plan Assessment 74 year old F on day #3 of vancomycin and ceftriaxone for dual treatment of non- purulent cellulitis and UTI * No known history of MRSA * Urine culture growing klebsiella pneumonia (intermediate only to macrobid) Plan Vancomycin * Trough level of 13 mcg/mL is therapeutic * Continue dose of 1000 mg IV q12h * Further trough level to be ordered if therapy is continued Pharmacy will continue to follow and will adjust dose/frequency as necessary. Thank you.
--- NOTE | 2020-05-23 20:17 | Hospitalist Progress Note ---
Date of Service May 23, 2020 Assessment & Plan (1) Erysipelas: She has seen improvement with current antibiotics, switching to Keflex and monitor response overnight. Doing well overall. She understands that the expectation won't be that the redness will all be gone by the time the anti biotics are completed. There may be more time needed for the inflammation to clear. (2) UTI (urinary tract infection): Conde-ssensitive Klebsiella UTI. Change abx to PO Keflex to cover this and erysipelas infection of arm (3) Bipolar 1 disorder: chronic, stable, lithium within therapeutic range. Cont home med ications. (4) Hypertension: At goal, cont current management. (5) Hypothyroidism: chronic, cont Synthroid at home dosing. (6) History of breast cancer: chronic LUE lymphedema related to this treatment. (7) Clostridioides difficile infection: On chronic suppressive therapy pending fecal transplant which is been put on hold with Covid restrictions. Pt continues on vanc PO. Was seen by GI provider today with updates to her outpatient plan which she is happy with. (8) DVT prophylaxis: Lovenox Encouraged to ambulate with assist as needed Full Code Dispo-to home in am as long as her arm infection is not worsening. Adelaida Garza DO [facility] Hospitalist Admission and Anticipated Discharge Date Admission Date: May 21, 2020 Subjective 74-year-old female presented with concerns for weakness and fatigue. LUE cellulitis much improved on Vanc IV and Ceftriaxone IV. Afebrile, tolerating PO, denies pain Denies UTI symptoms, ambulating at her baseline. Was able to work with GI team to come up with a solution for her treatment plan moving forward regaridng fecal transplant Denies diarrhea despite abx. I spoke with her by phone and updated him on the plan. Review of Systems Review of Systems: All systems reviewed & are unremarkable except as noted in Subjective Physical Exam Physical Exam: CONSTITUTIONAL: WNWD, vitals as above, generally well- appearing EYES: normal conjunctivae, no scleral icterus ENT: external ear and nose normal, MMM RESPIRATORY: clear to auscultation bilaterally, no crackles, rales or wheezes, normal respiratory effort CARDIOVASCULAR: regular rate and rhythm, S1 and 2 heard without murmurs, gallops or rubs, no JVD, no peripheral edema GASTROINTESTINAL: soft, nontender, nondistended, no guarding MUSCULOSKELETAL: strength 5/5 throughout, head is normocephalic and atraumatic, neck supple, normal palpation of chest wall without tenderness SKIN: warm and dry NEUROLOGIC: CN 2-12 grossly intact, normal cognition, normal speech, no gross focal deficits. PSYCHIATRIC: alert cooperative and oriented to person, place and time. Results & Data Results & Data ([facility]) Vital Signs (Past 12 Hours) Vital Signs Temp Pulse Resp BP Pulse Ox 05/23/20 15:44 36.4 C L 66 18 146/79 H 94 Laboratory Results Short CBC 05/23/20 Range/Units 06:13 WBC 5.55 (4.8-10.8) K/uL Hgb 11.2 L (12.0-16.0) g/dL Hct 33.6 L (37-47) % Plt Count 217 (130-400) K/uL BMP 05/23/20 06:13 Sodium 145 Potassium 3.8 Chloride 115 H Carbon Dioxide 23 BUN 8 Creatinine 0.98 Glucose 96 Calcium 8.6 Medications Administered Current Inpatient Medications Acetaminophen (Acetaminophen 325 Mg Tab) 650 mg PO Q4H PRN PRN Reason: Pain or Fever Stop: 06/20/20 07:55 Last Admin: 05/22/20 15:23 Dose: 650 mg Documented by: Amlodipine Besylate (Amlodipine Besylate 5 Mg Tab) [facility] [place] Stop: 06/20/20 08:59 Last Admin: 05/23/20 09:38 Dose: 10 mg Documented by: Ascorbic Acid (Ascorbic Acid 500 Mg Tab) 1,000 mg PO BID [facility] Stop: 06/20/20 08:59 Last Admin: 05/23/20 09:37 Dose: 1,000 mg Documented by: Aspirin (Aspirin 81 Mg Ectab) 81 [facility] [place] [facility] [place] Stop: 06/20/20 08:59 Last Admin: 05/23/20 09:37 Dose: 81 mg Documented by: Atenolol (Atenolol 50 Mg Tablet) 50 mg PO QAM [facility] Stop: 06/20/20 08:59 Last Admin: 05/23/20 09:38 Dose: 50 mg Documented by: Cephalexin HCl (Cephalexin 500 Mg Cap) 500 mg PO QID [facility] Stop: 06/02/20 20:59 Cetirizine HCl (Cetirizine Hcl 10 Mg Tablet) 10 mg PO DAILY [facility] Stop: 06/20/20 08:59 Last Admin: 05/23/20 09:38 Dose: 10 mg Documented by: Cholestyramine Resin (Cholestyramine Light 4 Gm Pkt) 4 gm PO BID@1000,2200 [facility] Stop: 06/22/20 09:59 Last Admin: 05/23/20 10:01 Dose: 4 gm Documented by: Cyanocobalamin (Cyanocobalamin (Vitamin B-12) 100 Mcg Tablet) 100 mcg PO QAM [facility] Stop: 06/20/20 08:59 Last Admin: 05/23/20 09:38 Dose: 100 mcg Documented by: Dicyclomine HCl (Dicyclomine Hcl 20 Mg Tab) 20 mg PO QID [facility] Stop: 06/20/20 08:59 Last Admin: 05/23/20 17:22 Dose: 20 mg Documented by: Enoxaparin Sodium (Enoxaparin Inj 40 Mg/0.4 Ml Syr) 40 mg SQ QAM [facility] Stop: 06/22/20 08:59 Last Admin: 05/23/20 10:01 Dose: 40 mg Documented by: Famotidine (Famotidine 40 Mg Tablet) 40 mg PO QAM [facility] Stop: 06/20/20 08:59 Last Admin: 05/23/20 09:38 Dose: 40 mg Documented by: Fluticasone Propionate (Fluticasone Propionate Na Spr 16 Gm Btl) 2 sprays NA BID [facility] Stop: 06/20/20 08:59 Last Admin: 05/23/20 09:39 Dose: 2 sprays Documented by: Furosemide (Furosemide 20 Mg Tab) 20 mg PO QAM [facility] Stop: 06/20/20 08:59 Last Admin: 05/23/20 09:38 Dose: 20 mg Documented by: Gabapentin (Gabapentin 300 Mg Cap) 300 mg PO TID [facility] Stop: 06/20/20 08:59 Last Admin: 05/23/20 13:38 Dose: 300 mg Documented by: Lactobacillus Acidoph/Casei/Rhamnos (Advanced Probiotic 1250 Mg Capsule) 1 cap PO BID [facility] Stop: 06/20/20 08:59 Last Admin: 05/23/20 09:37 Dose: 1 cap Documented by: Lamotrigine (Lamotrigine 100 Mg Tab) 150 mg PO BID [facility] Stop: 06/20/20 08:59 Last Admin: 05/23/20 09:38 Dose: 150 mg Documented by: Levothyroxine Sodium (Levothyroxine Sodium 125 Mcg Tablet) 125 mcg PO DAILYBB [facility] Stop: 06/20/20 08:59 Last Admin: 05/23/20 06:22 Dose: 125 mcg Documented by: Germania Carbonate (Germania Carbonate 450 Mg Tabcr) 450 mg PO HS [facility] Stop: 06/20/20 20:59 Last Admin: 05/22/20 20:24 Dose: 450 mg Documented by: Lorazepam (Lorazepam 1 Mg Tab) 1 mg PO Q6H PRN PRN Reason: Anxiety Stop: 06/20/20 08:21 Last Admin: 05/21/20 10:40 Dose: 1 mg Documented by: Losartan Potassium (Losartan Potassium 50 Mg Tab) 100 mg PO QAM [facility] Stop: 06/20/20 08:59 Last Admin: 05/23/20 09:38 Dose: 100 mg Documented by: Meclizine HCl (Meclizine Hcl 25 Mg Tab) 25 mg PO TID PRN PRN Reason: Dizziness Stop: 06/20/20 08:23 Miscellaneous (Order Awaiting Action) 1 ea N/A QS [facility] Stop: 06/20/20 15:59 Last Admin: 05/23/20 14:00 Dose: Not Given Documented by: Miscellaneous (Vilazodone [Viibryd] 10 Mg Tablet~Order Awaiting Action) 1 ea N/A QS [facility] Stop: 06/20/20 15:59 Last Admin: 05/23/20 14:00 Dose: Not Given Documented by: Miscellaneous (Ipratropium [place] 0.03 % [place],Non-Aerosol~Order Awaiting A ction) 1 ea N/A QS [facility] Stop: 06/20/20 15:59 Last Admin: 05/23/20 13:59 Dose: Not Given Documented by: Miscellaneous (Order Awaiting Action) 1 ea N/A QS [facility] Stop: 06/20/20 15:59 Last Admin: 05/23/20 14:00 Dose: Not Given Documented by: Multivitamins (Multivitamin Tab) 1 tab PO QPM [facility] Stop: 06/20/20 20:59 Last Admin: 05/22/20 20:27 Dose: 1 tab Documented by: Multivitamins/Minerals (Calcium 600mg + Vit D 400 Iu Tab) 1 tab PO BID [facility] Stop: 06/20/20 08:59 Last Admin: 05/23/20 09:38 Dose: 1 tab Documented by: Neomycin/Polymyxin/Hydrocortisone (Neomycin/Polymyx/Hydrocort Ot Soln 10 Ml Btl) 1 drops OT WeSa@0900 [facility] Stop: 06/21/20 08:59 Last Admin: 05/22/20 08:41 Dose: 1 drops Documented by: Nitroglycerin (Nitroglycerin Sl 0.4 Mg/Tab Tab) 0.4 mg SL UD PRN PRN Reason: Chest Pain Stop: 06/20/20 07:55 Ondansetron HCl (Ondansetron Inj 2 Mg/Ml 2 Ml Vial) 4 mg IV Q6H PRN PRN Reason: Nausea Stop: 06/20/20 07:55 Pantoprazole Sodium (Pantoprazole 40 Mg Tab) 40 mg PO BID [facility] Stop: 06/20/20 08:59 Last Admin: 05/23/20 09:38 Dose: 40 mg Documented by: Pilocarpine HCl (Pilocarpine Hcl 5 Mg Tablet) 5 mg PO TID [facility] Stop: 06/20/20 08:59 Last Admin: 05/23/20 13:38 Dose: 5 mg Documented by: Polyethylene Glycol (Polyethylene (Miralax) 17 Gm Pack) 17 gm PO DAILY PRN PRN Reason: Constipation Stop: 06/20/20 07:55 Pravastatin Sodium (Pravastatin Sod 40 Mg Tab) [address] [facility] Stop: 06/20/20 20:59 Last Admin: 05/22/20 20:26 Dose: 80 mg Documented by: Raspberry (Raspberry Syrup 5 Ml Udp) 5 ml PO QAM [facility] Stop: 06/04/20 08:59 Last Admin: 05/23/20 09:39 Dose: 5 ml Documented by: Simethicone (Simethicone 80 Mg Chew) 80 mg PO BID PRN PRN Reason: Stomach Upset Stop: 06/20/20 07:55 Tramadol HCl (Tramadol Hcl 50 Mg Tablet) 50 - 100 mg PO Q4 PRN PRN Reason: Pain Stop: 06/20/20 07:55 Trazodone HCl (Trazodone Hcl 100 Mg Tab) [address] [facility] Stop: 06/20/20 20:59 Last Admin: 05/22/20 20:27 Dose: 200 mg Documented by: Vancomycin HCl (Vancomycin Hcl 125 Mg/2.5ml Soln) [facility] [place] [place] Stop: 06/20/20 08:59 Last Admin: 05/23/20 10:01 Dose: 125 mg Documented by: (1) Hypertension Hypertension type: unspecified Qualified Code(s): I10 - Essential (primary) hypertension
[2020-05-23] MEDS: PRAVASTATIN SOD 40 MG TAB PO SCH (20:53)
[2020-05-23] MEDS: LITHIUM CARBONATE 450 MG TABCR PO SCH (20:53)
[2020-05-23] MEDS: traZODone HCL 100 MG TAB PO SCH (20:53)
[2020-05-23] MEDS: MULTIVITAMIN TAB PO SCH (20:53)
[2020-05-23] MEDS: cephALEXin 500 MG CAP PO SCH (21:01)
[2020-05-24 06:01] LABS: Hematocrit (blood only) 33.7 % (37-47); Hemoglobin 11.4 g/dL (12.0-16.0); Immature Granulocytes # (auto) 0.06 K/uL (0.00-0.02); Immature Granulocytes % (auto) 1.3 %; Lymphocytes # (auto) 1.25 K/uL (1.2-3.4); Lymphocytes % (auto) 27.9 %; Mean Corpuscular Hemoglobin 30.4 pg (25-34); Mean Corpuscular Hgb Conc 33.8 g/dL (32-36); Mean Corpuscular Volume 89.9 fL (80-100); Mean Platelet Volume 9.3 fL (7.4-10.4); Monocytes # (auto) 0.33 K/uL (0.11-0.59); Monocytes % (auto) 7.4 %; Neutrophils # (auto) 2.84 K/uL (1.4-6.5); Neutrophils % (auto) 63.4 %; Platelet Count 278 K/uL (130-400); RDW Coefficient of Variation 13.5 % (11.5-14.5); RDW Standard Deviation 44.6 fL (36.4-46.3); Red Blood Count 3.75 M/uL (4.2-5.4); White Blood Count 4.48 K/uL (4.8-10.8)
[2020-05-24] MEDS: LEVOTHYROXINE SODIUM 125 MCG TABLET PO SCH (06:15)
[2020-05-24 06:35] LABS: BUN Creatinine Ratio 7.1 (10-20); Calcium 9.2 mg/dl (8.5-10.1); Creatinine Clr Calc Pharmacy 57.4 ml/min; Est GFR (African American) 64.4; Est GFR (Non-African American) 55.6
[2020-05-24] MEDS: CETIRIZINE HCL 10 MG TABLET PO SCH (08:37)
[2020-05-24] MEDS: CYANOCOBALAMIN (VITAMIN B-12) 100 MCG TABLET PO SCH (08:37)
[2020-05-24] MEDS: ATENOLOL 50 MG TABLET PO SCH (08:37)
[2020-05-24] MEDS: amLODIPine BESYLATE 5 MG TAB PO SCH (08:37)
[2020-05-24] MEDS: PILOCARPINE HCL 5 MG TABLET PO SCH ×2 (08:37→13:27)
[2020-05-24] MEDS: lamoTRIgine 100 MG TAB PO SCH (08:37)
[2020-05-24] MEDS: PANTOprazole 40 MG TAB PO SCH (08:37)
[2020-05-24] MEDS: CALCIUM 600MG + VIT D 400 IU TAB PO SCH (08:37)
[2020-05-24] MEDS: ASPIRIN 81 MG ECTAB PO SCH (08:38)
[2020-05-24] MEDS: LOSARTAN POTASSIUM 50 MG TAB PO SCH (08:38)
[2020-05-24] MEDS: FUROSEMIDE 20 MG TAB PO SCH (08:38)
[2020-05-24] MEDS: FAMOTIDINE 40 MG TABLET PO SCH (08:38)
[2020-05-24] MEDS: GABAPENTIN 300 MG CAP PO SCH ×2 (08:38→13:27)
[2020-05-24] MEDS: ADVANCED PROBIOTIC 1250 MG CAPSULE PO SCH (08:38)
[2020-05-24] MEDS: cephALEXin 500 MG CAP PO SCH ×3 (08:38→16:21)
[2020-05-24] MEDS: DICYCLOMINE HCL 20 MG TAB PO SCH ×3 (08:39→16:21)
[2020-05-24] MEDS: ASCORBIC ACID 500 MG TAB PO SCH (08:39)
[2020-05-24] MEDS: ENOXAPARIN INJ 40 MG/0.4 ML SYR SQ SCH (08:40)
[2020-05-24] MEDS: FLUTICASONE PROPIONATE NA SPR 16 GM BTL SCH (08:40)
[2020-05-24] MEDS: RASPBERRY SYRUP 5 ML UDP PO SCH (09:02)
[2020-05-24] MEDS: VANCOMYCIN HCL 125 MG/2.5ML SOLN PO SCH (09:02)
[2020-05-24] MEDS: CHOLESTYRAMINE LIGHT 4 GM PKT PO SCH (10:20)
[2020-05-24 16:14] VITALS: BP 151/88; TEMP 97.7; O2SAT 96
--- NOTE | 2020-05-24 18:05 | Discharge Summary ---
Date of Service May 24, 2020 Admission HPI Per Admitting Provider HISTORY OF PRESENT ILLNESS: A 74-year-old female with past medical history significant for hyperlipidemia, hypothyroidism, nonallergic rhinitis, chronic cough, chemical pneumonitis, hypertension, GERD, vitamin B12 deficiency, esophageal dysphagia, chronic interstitial cystitis, bilateral nephritis, chronic kidney disease stage III, post-mastectomy lymphedema syndrome, degeneration of cervical intervertebral disc, malignant neoplasm of axillary lymph nodes, major depression, bipolar depression, history of recurrent UTIs, history of breast cancer, history of C. diff, who lives with her , presents with dizziness. The patient says since midnight around 1:00-2:00 a.m., she started to feel dizzy and also as per , she also has fever and chills and came to the ER. In the ER, the CAT scan showed right chronic cerebellar infarct and question of CVA, so we admitted her for stroke workup and also UTI treatment. COVID is negative. The patient denies any headache, no blurred vision, no earache, no runny nose, no sore throat, says no loss of sense of smell, but taste is not good for the last 2 weeks and she notes her appetite is down for the last 2 weeks, chronic cough, no chest pain, no shortness of breath. Before she came to the ER, she had an episode of nausea, no abdominal pain. No diarrhea or constipation or blood in the stool or black stools. Denies any burning micturition. It looks like she has chronic lymphedema of the left upper extremity and she has some erythema seen in the upper extremity. Currently, resting comfortably and hemodynamically stable. Admission Exam Per Admitting Provider PHYSICAL EXAMINATION: GENERAL: The patient is of moderate build, not in acute distress. VITAL SIGNS: Temperature 36.8, pulse 71, respiratory rate 16, blood pressure 108/67, oxygen 96% on room air. HEENT: Pupils equal, round, reactive to light. Oral mucosa moist. NECK: No JVD seen, no neck masses seen. CARDIOVASCULAR: S1, S2, regular rate and rhythm, no murmur, no gallop. RESPIRATORY SYSTEM: Normal AP diameter. No accessory muscle use. No wheezing, no crackles. ABDOMEN: Soft, bowel sounds present, nontender. No distention. CENTRAL NERVOUS SYSTEM: Cranial nerves II-XII grossly nonfocal. EXTREMITIES: Left upper extremity is edematous and erythema seen. Moves extremities. 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 infection Discharge Exam CONSTITUTIONAL: WNWD, vitals as above, generally well-appearing EYES: normal conjunctivae, no scleral icterus ENT: external ear and nose normal, MMM RESPIRATORY: clear to auscultation bilaterally, no crackles, rales or wheezes, normal respiratory effort CARDIOVASCULAR: regular rate and rhythm, S1 and 2 heard without murmurs, gallops or rubs, no JVD, no peripheral edema GASTROINTESTINAL: soft, nontender, nondistended, no guarding MUSCULOSKELETAL: strength 5/5 throughout, head is normocephalic and atraumatic, neck supple, normal palpation of chest wall without tenderness SKIN: warm and dry, LUE with some increased swelling when compared to right side but overall improved since admission. Still has a pinkish tint to her skin. NEUROLOGIC: CN 2-12 grossly intact, normal cognition, normal speech, no gross focal deficits. PSYCHIATRIC: alert cooperative and oriented to person, place and time. Discharge Data Allergies Allergy/AdvReac Type Severity Reaction Status Date / Time ciprofloxacin Allergy Severe HIVES Verified 02/28/20 09:55 metronidazole Allergy Intermediate hives Verified 05/21/20 05:41 Sulfa (Sulfonamide Allergy Intermediate HIVES Verified 05/21/20 05:41 Antibiotics) Quinolones Allergy Mild CIPRO Verified 02/28/20 09:55 baclofen AdvReac Severe NEURO Verified 05/21/20 05:41 SYMPTOMS morphine AdvReac Severe DELIRIUM Verified 02/28/20 09:55 zolpidem AdvReac Mild delusions Verified 05/21/20 05:41 pantoprazole AdvReac Unknown migraines Verified 05/21/20 05:41 Consultations 05/21/20 06:12 ED Decision to Admit Stat 05/21/20 07:56 Consult Case Management - Discharge Planning Routine Consult Case Management - Discharge Planning Routine Consult Neurology Routine 05/23/20 01:27 Consult Gastroenterology Routine Ordered Studies [facility], [phone] Ultrasound Report Patient: TEODORO PAEZ Date: 05/21/20MR#: [id number]: 108 [facility] DRAcct ID:[id number]: Date: 1945[facility] Zip: [place] [id number]: 74Location: 2SSex: FRoom/Bed: [id number] Phy: Pascual Cross DODiagnosis: DIZZINESSPri Phy: Shakeel Benitez, DOService Date: 05/21/20Fa Phy:Interpreting Phy: Oliverio Marmolejo [facility] Phy: Mich Castellanos MD Ordering Phy: Mich Castellanos MD cc: ~ US venous doppler UE LT CLINICAL HISTORY: Left arm swelling and edema. COMPARISON STUDY: No previous studies for comparison. FINDINGS: No intraluminal thrombus was visualized. The internal jugular, subclavian, axillary, cephalic, brachial, basilic, radial, and ulnar veins were patent. IMPRESSION: No evidence of left upper extremity DVT. ACT 112: Negative or not required by law. Electronically signed by: Oliverio Marmolejo M.D. 05/21/2020 12:48 PM Dictated: 05/21/20 1247Transcribed: 05/21/20 1247 --- [facility], [phone] Ultrasound Report Patient: TEODORO PAEZ Date: 05/21/20#: [id number]: 108 [facility] DRAcct ID:[id number]: Date: 1945[facility] Zip: [place] [id number]: 74Location: 2SSex: FRoom/Bed: [id number] Phy: Pascual Cross DODiagnosis: DIZZINESSPri Phy: Shakeel Benitez, DOService Date: 05/21/20Fam Phy:Interpreting Phy: Kurt Lovett [facility]y: Mich Castellanos MD Ordering Phy: Mich Castellanos MD cc: ~ BILATERAL CAROTID DOPPLER STUDY HISTORY: Dizziness. COMPARISON: Neck CTA 01/27/2018. TECHNIQUE: Real-time, grayscale, and color Doppler sonography of the carotid arteries was performed. Imaging reviewed in the transverse and longitudinal planes. All measurements were calculated based on NASCET criteria. FINDINGS: Antegrade flow is seen in the bilateral vertebral arteries. The brachial pressures were not obtained. Moderate right and mild left carotid bifurcation calcified plaque. The peak systolic velocity within the right ICA is 80 cm/s. The right systolic ratio is 1.3. The peak systolic velocity within the left ICA is 92 cm/s. The left systolic ratio is 1.4. IMPRESSION: No hemodynamically significant stenosis seen within the carotid arteries. ACT 112: Negative or not required by law. Electronically signed by: Kurt Lovett M.D. 05/21/2020 12:50 PM Dictated: 05/21/20 1248Transcribed: 05/21/20 1248 ---- [facility], [phone] Magnetic Resonance Report Patient: TEODORO PAEZ Date: 05/21/20#: [id number]: 108 [facility] D[facility]:[id number]: Date: 1945[facility] Zip: [place] [address]Zvp: 74Location: 2SSex: FRoom/Bed: [id number] Phy: Pascual Cross DODiagnosis: DIZZINESSPri Phy: Shakeel Benitez, DOService Date: 05/21/20Fam Phy:Interpreting Phy: Oliverio Marmolejo MDAit Phy: Mich Castellanos MD Ordering Phy: iMch Castellanos MD cc: ~ MRI OF THE BRAIN WITHOUT AND WITH IV CONTRAST CLINICAL HISTORY: Dizziness. Possible stroke. ABNORMAL PRIOR MRI. Headache COMPARISON STUDY: 01/28/2018, CT scan dated 05/21/2020 TECHNIQUE: MRI of the brain was performed from the vertex to the skull base utilizing various T1 and T2 weighted sequences. Following the IV administration of 9 mL of Gadavist contrast, additional enhanced images were obtained. FINDINGS: Sagittal T1, axial diffusion, proton density and T2 weighted axial, coronal FLAIR, and pre and post axial T1-weighted images were acquired. These were supplemented with post gadolinium coronal T1 weighted images. No intra or extra-axial mass lesions are visualized. Axial diffusion-weighted images reveal no evidence of acute or subacute infarction. There is no evidence of ventricular dilatation. Proton density T2-weighted and FLAIR images reveal scattered foci of increased T2 signal within the white matter, likely on a small vessel basis. There is an old lacunar infarct within the right cerebellar hemisphere There are no abnormal flow voids. Meningeal enhancement is less pronounced than on the prior 2018 study and is unchanged from 2015. The findings are unlikely to be of acute clinical significance. IMPRESSION: 1. No acute intracranial findings 2. No evidence of intracranial mass 2. No evidence of acute or subacute infarction 4. Stable white matter disease likely small vessel ischemic basis ACT 112: Negative or not required by law. Electronically signed by: Oliverio Marmolejo M.D. 05/21/2020 12:14 PM Dictated: 05/21/20 1204Transcribed: 05/21/20 1211 [facility], [phone] CT Scan Report Patient: TEODORO PAEZ Date: 05/21/20#: [id number]: 108 [facility] DRA[facility] ID:[id number]: Date: 1945[facility] Zip: [place] [address]Gcx: 74Location: EDSex: FRoom/Bed:Att Phy:Diagnosis: WEAK/NAUSEA/HEADACHEPri Phy: Turner Benitezvodarwin [place], DOService Date: 05/21/20Fam Phy:Interpreting Phy: Kurt Lovett MDAdmit Phy: Ordering Phy: Nik Hodges MD cc: ~ HEAD CT NONCONTRAST CT DOSE: 729.78 mGycm HISTORY: pt c/o dizzy TECHNIQUE: Multiaxial CT images of the head were performed without the use of intravenous contrast. Automated exposure control was utilized for this study. A dose lowering technique was utilized adhering to the principles of ALARA. Comparison: Brain MRI 01/28/2018. Findings: The paranasal sinuses and mastoid air cells are clear. The calvarium and skull base are intact. There is no mass, hematoma, midline shift, acute infarct. White matter hypodensity is nonspecific but suggestive of microvascular ischemic change. The ventricles and sulci demonstrate mild age-related involutional changes. Old punctate lacunar infarct within the right cerebellar hemisphere. Impression: No acute intracranial abnormality. ACT 112: Negative or not required by law. Electronically signed by: Kurt Lovett M.D. 05/21/2020 7:18 AM Dictated: 05/21/20 0716Transcribed: 05/21/20 0716 [facility], [phone] XRay Report Patient: TEODORO PAEZ Date: 05/21/20#: [id number]: 108 [facility] DRAcct ID:[id number]: Date: 1945[facility] Zip: [place] [id number]: 74Location: EDSex: FRoom/Bed:Att Phy:Diagnosis: WEAK/NAUSEA/HEADACHEPri Phy: Shakeel Benitez, DOService Date: 05/21/20Fam Phy:Interpreting Phy: Kurt Lovett MDAdmit Phy: Ordering Phy: Nik Hodges MD cc: ~ XR chest 1V portable HISTORY: weakness COMPARISON: Chest 02/08/2020. FINDINGS: There are low lung volumes. No pleural effusions. No pneumothorax. The cardiac silhouette remains mildly enlarged. No new focal lung consolidations to suggest pneumonia. No evidence for pulmonary edema. Cervical and lumbar spinal fusion hardware are again noted. Degenerative changes within the shoulders. IMPRESSION: No significant change compared to the prior study. No acute process. Stable card [facility]. ACT 112: Negative or not required by law. Electronically signed by: Kurt Lovett M.D. 05/21/2020 7:21 AM Dictated: 05/21/20720Transcribed: 05/21/20720 Hospital Course (1) Erysipelas: (2) Clostridioides difficile infection: (3) Lymphedema: (4) UTI (urinary tract infection): 74-year-old female presented with left upper extremity redness and swelling in addition to dizziness and fatigue and some confusion per her . Initial work-up included consideration for stroke and MRI was performed. Carotid Doppler was also done and neurology was consulted. MRI revealed chronic microvascular ischemic changes and no new stroke was seen on MRI with dizziness felt to be unrelated to a vascular etiology. She also had this ongoing cellulitis of her left upper extremity which was initially treated with vancomycin IV and subsequently with Keflex successfully. 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 She did meet up with GI this admission to expedite a care plan as her current fecal transplant is on hold. She also was found to have a urinary tract infection that was treated with antibiotics. She remained hemodynamically stable throughout the hospitalization. Her initial dizziness and confusion resolved within 24 hours and she was able to ambulate at baseline. At time of discharge she was mentating and ambulating at baseline and tolerating p.o. She was afebrile and hemodynamically stable and oxygenating well on room air. Erythema and swelling in her left upper extremity had improved significantly and close primary care follow-up is recommended to ensure this continues to be the case. She was sent home in stable condition. Total Time Total Time Spent Total Time Spent (In Minutes): 60 Total Time Includes: Examination of the Patient, Discharge Planning, Medication Reconciliation and Communication With Other Providers Discharge Plan Discharge Items Patient Disposition: Home - Self-Care Reason For Visit: DIZZINESS Discharge Diagnosis: Erysipelas Urinary tract infection secondary to Klebsiella Chronic left upper extremity lymphedema Condition on Discharge: Good Activity: Resume your previous activity Non-emergency contact: Primary Care Provider Call non-emergency contact if: you have any medication questions, your symptoms worsen, your pain is not controlled, your pain is worsening, your pain is unusual for you, your pain is concerning for you and you have a fever Follow-up/Referrals: Shakeel Benitez DO [Primary Care Provider] - (Date & Time 05/28/2020 11:00 AM Provider Dav Hargrove MD Department Family [facility] ) Diet: Heart Healthy Addtl Attending Provider Instructions: Please take all medications as instructed on discharge list below. It is recommended that you follow-up with your primary care doctor at the scheduled time above. At this appointment it will be important to ensure you are left upper arm inflammation is going down, and that you are feeling better with respect to your symptoms. Please follow-up with the [facility] gastroenterology team as instructed. It was a pleasure taking care of you! Please call if you have any questions or problems. You can reach a [facility] hospitalist on duty at [facility] 24 hours a day by calling [phone]. Take care of yourself. Adelaida Garza DO [facility] Hospitalist Pending Studies at Discharge: No Stand-Alone Forms: My [facility] Medications and DC Order Prescriptions: New cephalexin 500 mg Capsule 500 mg PO QID Qty: 36 RF: 0 Cholestyramine Light 4 gram Powder In Packet 4 g PO BID@1000,2200 Qty: 60 RF: 0 Continued aspirin [Aspirin Low Dose] 81 mg Tablet,Delayed Release (Dr/Ec) 81 mg PO QAM Qty: 0 RF: 0 tramadol 50 mg Tablet 50 - 100 mg PO Q4 PRN (Reason: Pain) Qty: 0 RF: 0 levothyroxine 125 mcg Tablet 125 mcg PO QAM Qty: 0 RF: 0 pravastatin 80 mg Tablet 80 mg PO HS Qty: 0 RF: 0 atenolol 50 mg Tablet 50 mg PO QAM Qty: 0 RF: 0 lithium carbonate 450 mg Tablet Extended Release 450 mg PO HS Qty: 0 RF: 0 [id number]-[id number]-KV 3.5-10,000-1 mg/mL-unit/mL-% Solution 1 drp OTIC (EAR) 2XWK Qty: 0 RF: 0 multivitamin [Multiple Vitamins] Tablet 1 tab PO QPM Qty: 0 RF: 0 cranberry extract 300 mg Tablet 300 mg PO BID Qty: 0 RF: 0 cyanocobalamin (vitamin B-12) 100 mcg Tablet 100 mcg PO QAM Qty: 0 RF: 0 gabapentin 300 mg Capsule 300 mg PO TID Qty: 0 RF: 0 omeprazole magnesium 20 mg Capsule,Delayed Release(Dr/Ec) 20 mg PO AMHS Qty: 0 RF: 0 ascorbic acid (vitamin C) 1,000 mg Tablet 1 g PO BID Qty: 0 RF: 0 fluticasone propionate 50 mcg/actuation Imperial,Suspension 2 spray INTRANASAL AMPM Qty: 0 RF: 0 calcium carbonate-vitamin D3 [Calcium 500 + D] 500 mg(1,250mg) -200 unit Tablet 1 tab PO BID Qty: 0 RF: 0 Probiotic 3 billion cell Capsule 3,000 mmu cells PO BID Qty: 0 RF: 0 lamotrigine 150 mg Tablet 150 mg PO AMPM Qty: 0 RF: 0 lorazepam 1 mg Tablet 1 mg PO Q6H PRN (Reason: Anxiety) Qty: 0 RF: 0 dicyclomine 20 mg Tablet 20 mg PO QID Qty: 0 RF: 0 ipratropium bromide 0.03 % Imperial,Non-Aerosol 2 spray INTRANASAL QID Qty: 0 RF: 0 famotidine 40 mg Tablet 40 mg PO QAM RF: 0 vancomycin [Vancocin] 125 mg capsule 125 mg PO QAM RF: 0 trazodone 100 mg tablet 200 mg PO HS RF: 0 turmeric root extract 500 mg Capsule 500 mg PO BID RF: 0 amlodipine 10 mg tablet 10 mg PO QAM RF: 0 losartan [Cozaar] 50 mg tablet 100 mg PO QAM RF: 0 pilocarpine HCl 5 mg tablet 5 mg PO TID RF: 0 Viibryd 10 mg Tablet 10 mg PO QPM RF: 0 omega 2-jjv-sqo-fish oil 1 dose PO QAM RF: 0 fluocinonide 0.05 % Gel 1 applic TOPICAL BID RF: 0 cetirizine 10 mg Tablet 10 mg PO DAILY RF: 0 ondansetron HCl 8 mg Tablet 8 mg PO Q8 PRN (Reason: Nausea) RF: 0 meclizine 25 mg Tablet 50 mg PO TID PRN (Reason: Dizziness) RF: 0 furosemide 20 mg Tablet 20 mg PO QAM RF: 0 simethicone [Gas Relief 80 (simethicone)] 80 mg Tablet,Chewable 80 mg PO BID PRN (Reason: Stomach Upset) RF: 0 Soothe XP 1-4.5 % Drops 2 drp ophthalmic (eye) BID RF: 0 Discontinued colestipol 1 gram tablet 2 g PO BID RF: 0 Discharge Orders: Discharge Order (Routine); Ordered 05/24/20 Ordered By: Adelaida Herrera/Other Patient Handouts: What Is C. Diff? Admission Data Admit Date/Time: 05/21/20 07:18 Attending Provider: Adelaida Garza Admit Provider: Mich Castellanos Primary Care Provider: Shakeel Benitez Other Providers: Mich Castellanos ; Sissy Pearl ; Chris Mayfield ; Sissy Ellis ; Odilon Osobrne ; Shobha Rodriguez Other Interventions: Discharge Summary Assessment (RN) Last Done: 05/24/20 18:07
[2020-05-24 18:07] VITALS: PULSE 78
== END 2020-05-24 18:25 | disposition home or self-care (01) | DRG 690 ==
LOC: ED 04:13 → 2S 07:18 → SUATTDRO 07:18 → 2S 07:34 → 2N 13:16

== ENCOUNTER 2021-12-29 12:38 | Inpatient (IN) ==
--- NOTE | 2021-09-24 15:19 | PAT Medication Instructions ---
Medication Instructions Date of Service September 24, 2021 Home Medications Medication Instructions Recorded cholestyramine-aspartame 4 gram 4 g PO BID@1000,2200 #60 ea 05/24/20 oral powder for susp in a packet (Cholestyramine Light) aspirin 81 mg tablet,delayed release (Juanjo Low Dose Aspirin) 81 mg PO QAM levothyroxine 125 mcg tablet 125 mcg PO QAM tramadol 50 mg tablet 50 - 100 mg PO Q4 PRN atenolol 50 mg tablet 50 mg PO QAM [id number]-[id number] 3.5 mg/mL-10,000 unit/mL-1 % ear solution 1 drp OTIC (EAR) 2XWK pravastatin 80 mg tablet 80 mg PO HS multivitamin (Multiple Vitamins) 1 tab PO QPM cranberry extract 300 mg tablet 300 mg PO BID # cyanocobalamin (vitamin B-12) 100 mcg tablet 100 mcg PO QAM gabapentin 300 mg capsule 300 mg PO TID omeprazole magnesium 20 mg capsule,delayed release 20 mg PO AMHS ascorbic acid (vitamin C) 1,000 mg tablet 1 g PO BID calcium carbonate 500 mg-vitamin D3 5 mcg (200 unit) tablet (Calcium 500 + D) 1 tab PO BID fluticasone propionate 50 mcg/actuation nasal spray,suspension 2 spray INT RANASAL AMPM lactobacillus combination no.4 3 billion cell capsule (Probiotic) 3,000 mmu cells PO BID lamotrigine 150 mg tablet (Lamictal) 150 mg PO AMPM lorazepam 1 mg tablet 1 mg PO Q6H PRN dicyclomine 20 mg tablet 20 mg PO QID ipratropium bromide 21 mcg (0.03 %) nasal spray 2 spray INTRANASAL QID furosemide 20 mg tablet 20 mg PO QAM light mineral oil 1 %-mineral oil 4.5 % eye drops (Soothe XP) 2 drp OPHTHALMIC (EYE) BID meclizine 25 mg tablet 50 mg PO TID PRN ondansetron HCl 8 mg tablet 8 mg PO Q8 PRN simethicone 80 mg chewable tablet (Gas Relief 80 (simethicone)) 80 mg PO BID PRN famotidine 40 mg tablet 40 mg PO QAM trazodone 100 mg tablet 200 mg PO HS turmeric root extract 500 mg capsule 500 mg PO BID vancomycin 125 mg capsule (Vancocin) 125 mg PO QAM amlodipine 10 mg tablet 10 mg PO QAM losartan 50 mg tablet (Cozaar) 100 mg PO QAM pilocarpine HCl 5 mg tablet (Salagen (pilocarpine)) 5 mg PO TID cholestyramine-aspartame 4 gram oral powder for susp in a packet (Cholestyramine Light) 4 g PO BID@1000,2200 cetirizine 10 mg capsule (Zyrtec) 10 mg PO QAM omega-3 fatty acids 1,000 mg capsule 1,000 mg PO QAM lithium carbonate 300 mg tablet 300 mg PO HS buspirone 5 mg tablet 5 mg PO TID promethazine 25 mg tablet 25 mg PO Q4H PRN ASK your prescriber and surgeon aspirin 81 mg tablet,delayed release (Juanjo Low Dose Aspirin) 81 mg PO QAM STOP taking 2 weeks before surgery (or as soon as possible if surgery is within 2 weeks) cranberry extract 300 mg tablet 300 mg PO BID # turmeric root extract 500 mg capsule 500 mg PO BID omega-3 fatty acids 1,000 mg capsule 1,000 mg PO QAM STOP taking 48 hours before surgery cholestyramine-aspartame 4 gram oral powder for susp in a packet (Cholestyramine Light) 4 g PO BID@1000,2200 DO NOT take the morning of surgery cyanocobalamin (vitamin B-12) 100 mcg tablet 100 mcg PO QAM ascorbic acid (vitamin C) 1,000 mg tablet 1 g PO BID calcium carbonate 500 mg-vitamin D3 5 mcg (200 unit) tablet (Calcium 500 + D) 1 tab PO BID lactobacillus combination no.4 3 billion cell capsule (Probiotic) 3,000 mmu cells PO BID dicyclomine 20 mg tablet 20 mg PO QID furosemide 20 mg tablet 20 mg PO QAM simethicone 80 mg chewable tablet (Gas Relief 80 (simethicone)) 80 mg PO BID PRN losartan 50 mg tablet (Cozaar) 100 mg PO QAM cetirizine 10 mg capsule (Zyrtec) 10 mg PO QAM Take morning of surgery With a small sip of water, OTHERWISE NOTHING TO EAT OR DRINK AFTER MIDNIGHT: levothyroxine 125 mcg tablet 125 mcg PO QAM tramadol 50 mg tablet 50 - 100 mg PO Q4 PRN (okay to take up to 4 hours prior to surgery if needed) atenolol 50 mg tablet 50 mg PO QAM gabapentin 300 mg capsule 300 mg PO TID omeprazole magnesium 20 mg capsule,delayed release 20 mg PO AMHS fluticasone propionate 50 mcg/actuation nasal spray,suspension 2 spray INTRANASAL AMPM lamotrigine 150 mg tablet (Lamictal) 150 mg PO AMPM lorazepam 1 mg tablet 1 mg PO Q6H PRN (if needed) ipratropium bromide 21 mcg (0.03 %) nasal spray 2 spray INTRANASAL QID light mineral oil 1 %-mineral oil 4.5 % eye drops (Soothe XP) 2 drp OPHTHALMIC (EYE) BID meclizine 25 mg tablet 50 mg PO TID PRN (if needed) ondansetron HCl 8 mg tablet 8 mg PO Q8 PRN (if needed) famotidine 40 mg tablet 40 mg PO QAM vancomycin 125 mg capsule (Vancocin) 125 mg PO QAM amlodipine 10 mg tablet 10 mg PO QAM pilocarpine HCl 5 mg tablet (Salagen (pilocarpine)) 5 mg PO TID buspirone 5 mg tablet 5 mg PO TID promethazine 25 mg tablet 25 mg PO Q4H PRN (if needed) Take evening before surgery tramadol 50 mg tablet 50 - 100 mg PO Q4 PRN (if needed) pravastatin 80 mg tablet 80 mg PO HS multivitamin (Multiple Vitamins) 1 tab PO QPM gabapentin 300 mg capsule 300 mg PO TID omeprazole magnesium 20 mg capsule,delayed release 20 mg PO AMHS ascorbic acid (vitamin C) 1,000 mg tablet 1 g PO BID calcium carbonate 500 mg-vitamin D3 5 mcg (200 unit) tablet (Calcium 500 + D) 1 tab PO BID fluticasone propionate 50 mcg/actuation nasal spray,suspension 2 spray INTRANASAL AMPM lactobacillus combination no.4 3 billion cell capsule (Probiotic) 3,000 mmu cells PO BID lamotrigine 150 mg tablet (Lamictal) 150 mg PO AMPM lorazepam 1 mg tablet 1 mg PO Q6H PRN (if needed) dicyclomine 20 mg tablet 20 mg PO QID ipratropium bromide 21 mcg (0.03 %) nasal spray 2 spray INTRANASAL QID light mineral oil 1 %-mineral oil 4.5 % eye drops (Soothe XP) 2 drp OPHTHALMIC (EYE) BID meclizine 25 mg tablet 50 mg PO TID PRN (if needed) ondansetron HCl 8 mg tablet 8 mg PO Q8 PRN (if needed) simethicone 80 mg chewable tablet (Gas Relief 80 (simethicone)) 80 mg PO BID PRN (if needed) trazodone 100 mg tablet 200 mg PO HS pilocarpine HCl 5 mg tablet (Salagen (pilocarpine)) 5 mg PO TID lithium carbonate 300 mg tablet 300 mg PO HS buspirone 5 mg tablet 5 mg PO TID promethazine 25 mg tablet 25 mg PO Q4H PRN (if needed) Other Notes If you have any questions please call us at [phone] or [phone] or [phone] or [phone]
--- NOTE | 2021-09-26 09:18 | Anesthesiology Consultation ---
Date of Service September 26, 2021 Assessment & Plan (1) Encounter for pre-operative examination: - COVID screening: Per assessment on 09/26: No known COVID-19 positive contacts or current COVID-19 related symptoms. Travel screen negative. Patient vaccinat ed. Surgeon arranging preop COVID testing. Awaiting results. - LUE restriction r/t lymphedema Chart Review Chart Review: Acceptable Risk for Surgery (pending surgeon-ordered preop UA) and Patient seen in Pre Admission Testing Teaching & Discussion Pre-Anesthesia Teaching/Discussion Notes: Instructed NPO after midnight before surgery,except medications with 15 cc of water. Medication instructions provided according to the PAT guidelines. History Surgery Operation Date: 10/22/21 10:15 Proposed Procedures p Right Total Shoulder Arthroplasty, Subacromial Decolpression and Distal Clavical Excision - Andrea Mills MD Height/Weight Height: 5 ft 7 in Weight: 84.1 kg Allergies Allergy/AdvReac Type Severity Reaction Status Date / Time ciprofloxacin Allergy Intermediate HIVES Verified 09/24/21 14:09 metronidazole Allergy Intermediate hives Verified 09/24/21 14:09 Quinolones Allergy Intermediate Hives Verified 09/24/21 14:09 Sulfa (Sulfonamide Allergy Intermediate HIVES Verified 09/24/21 14:09 Antibiotics) baclofen AdvReac Severe NEURO Verified 09/24/21 14:09 SYMPTOMS morphine AdvReac Severe DELIRIUM Verified 09/24/21 14:09 pantoprazole AdvReac Mild migraines Verified 09/24/21 14:09 zolpidem AdvReac Mild delusions Verified 09/24/21 14:09 Medications Home Medications Medication Instructions Recorded Confirmed Last Taken aspirin 81 mg tablet,delayed 81 mg PO QAM #0 tab 11/17/11 09/24/21 05/28/21 08:00 release (Juanjo Low Dose Aspirin) levothyroxine 125 mcg tablet 125 mcg PO QAM #0 02/04/13 09/24/21 05/29/21 06:05 tramadol 50 mg tablet 50 - 100 mg PO Q4 PRN #0 02/04/13 09/24/21 05/28/21 21:00 atenolol 50 mg tablet 50 mg PO QAM #0 05/24/14 09/24/21 05/29/21 06:05 [id number]-hrupugbzk 3.5 1 drp OTIC (EAR) 2XWK #0 05/24/14 09/24/21 05/28/21 21:00 mg/mL-10,000 unit/mL-1 % ear solution pravastatin 80 mg tablet 80 mg PO HS #0 05/24/14 09/24/21 05/28/21 21:00 multivitamin (Multiple Vitamins) 1 tab PO QPM #0 tab 04/22/15 09/24/21 05/28/21 18:00 cranberry extract 300 mg tablet 300 mg PO BID #0 07/07/16 09/24/21 05/28/21 18:00 cyanocobalamin (vitamin B-12) 100 100 mcg PO QAM #0 tab 07/07/16 09/24/21 05/28/21 08:00 mcg tablet gabapentin 300 mg capsule 300 mg PO TID #0 cap 07/07/16 09/24/21 05/29/21 06:05 omeprazole magnesium 20 mg 20 mg PO AMHS #0 cap 07/07/16 09/24/21 05/29/21 06:05 capsule,delayed release ascorbic acid (vitamin C) 1,000 mg 1 g PO BID #0 12/03/16 09/24/21 05/28/21 18:00 tablet calcium carbonate 500 mg-vitamin 1 tab PO BID #0 12/03/16 09/24/21 05/28/21 18:00 D3 5 mcg (200 unit) tablet (Calcium 500 + D) fluticasone propionate 50 2 spray INTRANASAL AMPM #0 12/03/16 09/24/21 05/28/21 18:00 mcg/actuation nasal spray,suspension lactobacillus combination no.4 3 3,000 mmu cells PO BID #0 12/03/16 09/24/21 05/28/21 21:00 billion cell capsule (Probiotic) lamotrigine 150 mg tablet 150 mg PO AMPM #0 tab 03/28/17 09/24/21 05/29/21 06:05 (Lamictal) lorazepam 1 mg tablet 1 mg PO Q6H PRN #0 tab 03/28/17 09/24/21 Unknown dicyclomine 20 mg tablet 20 mg PO QID #0 07/01/17 09/24/21 05/28/21 21:00 ipratropium bromide 21 mcg (0.03 2 spray INTRANASAL QID #0 07/01/17 09/24/21 05/28/21 18:00 %) nasal spray furosemide 20 mg tablet 20 mg PO QAM 01/26/18 09/24/21 05/28/21 08:00 light mineral oil 1 %-mineral oil 2 drp OPHTHALMIC (EYE) BID 01/26/18 09/24/21 05/29/21 06:05 4.5 % eye drops (Soothe XP) meclizine 25 mg tablet 50 mg PO TID PRN 01/26/18 09/24/21 Unknown ondansetron HCl 8 mg tablet 8 mg PO Q8 PRN 01/26/18 09/24/21 Unknown simethicone 80 mg chewable tablet 80 mg PO BID PRN 01/26/18 09/24/21 Unknown (Gas Relief 80 (simethicone)) famotidine 40 mg tablet 40 mg PO QAM 02/08/20 09/24/21 05/28/21 21:00 trazodone 100 mg tablet 200 mg PO HS 02/08/20 09/24/21 05/28/21 21:00 turmeric root extract 500 mg 500 mg PO BID 02/08/20 09/24/21 05/28/21 18:00 capsule vancomycin 125 mg capsule 125 mg PO QAM 02/08/20 09/24/21 05/29/21 06:05 (Vancocin) amlodipine 10 mg tablet 10 mg PO QAM 05/21/20 09/24/21 05/29/21 06:05 losartan 50 mg tablet (Cozaar) 100 mg PO QAM 05/21/20 09/24/21 05/29/21 06:05 pilocarpine HCl 5 mg tablet 5 mg PO TID 05/21/20 09/24/21 05/28/21 21:00 (Salagen (pilocarpine)) cholestyramine-aspartame 4 gram 4 g PO BID@1000,2200 #60 ea 05/24/20 09/24/21 05/28/21 22:00 oral powder for susp in a packet (Cholestyramine Light) cetirizine 10 mg capsule (Zyrtec) 10 mg PO QAM 09/24/20 09/24/21 05/28/21 08:00 omega-3 fatty acids 1,000 mg 1,000 mg PO QAM 09/24/20 09/24/21 05/28/21 08:00 capsule lithium carbonate 300 mg tablet 300 mg PO HS 05/23/21 09/24/21 05/28/21 21:00 buspirone 5 mg tablet 5 mg PO TID 07/30/21 09/24/21 Unknown promethazine 25 mg tablet 25 mg PO Q4H PRN tab 07/30/21 09/24/21 Unknown Past Medical History Medical History Anxiety Aspiration pneumonia 2016, suspected to be d/t GI upset, [facility] hospitalization Asthma Stable C. difficile diarrhea chronic, on vancomycin for suppressive therapy, follows with [facility] GI Chronic kidney disease (CKD), stage III (moderate) CVA (cerebral vascular accident) old lacunar infarct in R cerebellar hemisphere noted on 05/2020 MRI brain Depression Fatty liver GERD (gastroesophageal reflux disease) History of bipolar disorder History of breast cancer s/p chemo and radiation--left side History of COVID-19 diagnosed 01/2021--sinus issue, no hospitalization--no issues now Hyperlipidemia Hypertension Hypothyroidism Limb alert care status LUE restriction r/t lymphedema Lumbar stenosis with neurogenic claudication Lymphedema Mild cognitive impairment per [facility] records Mitral valve posterior leaflet prolapse 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 per 05/2020 echo TIA (transient ischemic attack) 2017, no deficits, no neurologist Exercise / Class Metabolic Activity III < 4 Walking/Shop/Light housework (one FS (no CP, occ SOB)) Past Family History Family History Other No family history of adverse response to anesthesia Past Surgical History Surgical History H/O colonoscopy H/O cystoscopy H/O dilation and curettage History of bilateral tubal ligation History of breast surgery History of cardiac cath 2016 > no stents History of cataract surgery R/L History of esophagogastroduodenoscopy (EGD) History of foot surgery right History of fusion of cervical spine x2--very limited with ROM History of lumbar spinal fusion x4 History of lymph node dissection of left axilla 03/14/2013- Left axillary lymph node dissection History of removal of Port-a-Cath History of total right knee replacement (TKR) History of vascular access device Port for chemo, later removed Status post total left knee replacement Past Anesthesia History No Hx of Anesthesia Complications and No Family Hx of Anesthesia Complications History of PONV No Hx of PONV and No Hx of Motion Sickness Social History Smoking Status: Never smoker Do You Dip or Chew Tobacco: No Hx Alcohol Use: No Hx Substance Use: No substance use type: does not use Review of Systems Patient denies chest pain, shortness of breath, fever, chills, cough, wheezing, palpitations. Physical Exam Vital Signs VITALS BP 125/73 P 70 TEMP 98.4 SP02 97%RA RESP 16 PHYSICAL Decreased cervical extension range of motion d/t cervicalgia. Full TMJ range of motion. TMD 3 finger breaths Mallampati Score __ Dentition: intact, + crowns, + implant Lungs: clear throughout to auscultation Cardiac: regular rate and rhythm, no murmurs noted Spine: normal Carotid arteries: negative bruit Extremities: no edema Lab Results Anesthesia Preop Results Results Anesthesia Widget: WBC 3.63 K/uL (4.8-10.8) L 09/26/21 Hgb 14.3 g/dL (12.0-16.0) 09/26/21 Hct 42.0 % (37-47) 09/26/21 Plt 270 K/uL (130-400) 09/26/21 Na 142 mmol/L (136-145) 09/26/21 K 3.7 mmol/L (3.5-5.1) 09/26/21 Cl 104 mmol/L (98-107) 09/26/21 CO2 31 mmol/L (21-32) 09/26/21 BUN 9 mg/dl (6-23) 09/26/21 Creat 1.13 mg/dl (0.6-1.2) 09/26/21 Glucose Level 106 mg/dl (70-99(Fasting)) H 09/26/21 PT 10.5 Seconds (9.0-12.0) 09/26/21 PTT 29.1 Seconds (21.0-31.0) 09/26/21 INR 1.0 (0.9-1.1) 09/26/21 HA1c 5.0 % (4.5-5.6) 09/26/21 Blood Type A Positive 09/26/21 Antibody Screen POSITIVE A 09/26/21 Testing Laboratory Results Santosh at blood bank aware of positive antibodies- nothing further needed from PAT. Low WBC > will forward preop testing to PCP for continuity of care* Electrocardiogram Date: 08/29/21 Normal sinus rhythm at 60 bpm. Nonspecific T wave abnormality. Chest X-Ray Date: 09/26/21 FINDINGS: PA and lateral chest radiographs are compared to study dated 05/21/2020. The heart is top normal for projection noting atherosclerotic calcification of the thoracic aorta. Chronic interstitial thickening is similar to previous. The lungs and pleural spaces are clear. There is no pneumothorax. The skeletal structures are osteopenic. The bony thorax appears intact. Fusion hardware is seen in the lower cervical spine and at the thoracolumbar junction. Degenerative change and hyperkyphosis is seen in the thoracic spine. Arthritic change is noted in the right shoulder. IMPRESSION: No active disease in the chest. Echocardiogram Date: 05/21/20 EF 60-65%. No regional motion abnormality. Grade 1 diastolic dysfunction. Moderate concentric LVH. Borderline posterior MVP. Trace MR. Stress Test Date: 02/09/20 Dobutamine MPHR 95% Nonischemic DSE No arrhythmias Cardiac Catheterization Date: 03/16/16 R heart cath mean PA normal (23 mmHg) No pulmonary hypertension at rest Cervical Spine Date: 05/29/21 MRI 1. Limited study secondary to motion and susceptibility artifact. 2. Postoperative changes of the cervical spine as above without high-grade central canal or foraminal narrowing. 3. Multilevel foraminal narrowing, moderate on the left at C2-C3 and C3-C4. 4. Normal signal of the cervical spinal cord. Other Testing CT abdomen/pelvis 08/08/[address] finding in the abdomen or pelvis to explain patient's symptoms. 2. Right lower lobe changes may be related to infection/inflammation. Superimposed aspiration is also a consideration. 3. Hepatosplenomegaly. Hepatic steatosis. Carotid doppler 05/21/20 No hemodynamically significant stenosis seen within the carotid arteries.
--- NOTE | 2021-12-01 11:21 | History & Physical Report ---
Date of Service December 01, 2021 Assessment & Plan (1) Primary osteoarthritis, right shoulder: Plan: Treatment options discussed with patient. She has failed conservative measures and would like to proceed with surgical intervention. Risks, benefits and alternatives to surgery including but not limited to infection, DVT, pain, stiffness, need for revision surgery, damage to blood vessels, damage to nerves, PE, , were discussed with the patient and they wish to proceed. Plan on right total shoulder arthroplasty with open subacromial decompression and distal clavicle excision. Surgery scheduled for 12/02/21 at [facility] with Dr. Mills. All questions answered. F/u post op. History of Present Illness Chief Complaint: rigth shoulder pain Primary Care Provider: Shakeel Benitez DO 76-year-old female with past medical history significant for high cholesterol, anxiety, TIA, CKD who presents with longstanding right shoulder pain. Patient has end-stage osteoarthritis. She has failed conservative measures. Pain interfering with her daily activity. She would like to proceed with surgical intervention. Patient denies headaches, sweats, fevers, chills, double vision, blurred vision, cough, sore throat, dysphagia, chest pain, sob, wheezing, n/v/d/c, numbness, tingling, fatigue, urinary symptoms, mood disorders. ROS positive for right shoulder pain and stiffness. Allergies Allergy/AdvReac Type Severity Reaction Status Date / Time ciprofloxacin Allergy Intermediate HIVES Verified 11/28/21 07:35 metronidazole Allergy Intermediate hives Verified 11/28/21 07:35 Quinolones Allergy Intermediate Hives Verified 11/28/21 07:35 Sulfa (Sulfonamide Allergy Intermediate HIVES Verified 11/28/21 07:35 Antibiotics) baclofen AdvReac Severe NEURO Verified 11/28/21 07:35 SYMPTOMS morphine AdvReac Severe DELIRIUM Verified 11/28/21 07:35 pantoprazole AdvReac Mild migraines Verified 11/28/21 07:35 zolpidem AdvReac Mild delusions Verified 11/28/21 07:35 Home Medications Medication Instructions Recorded Confirmed Type aspirin 81 mg tablet,delayed 81 mg PO QAM #0 tabs 11/17/11 11/28/21 History release (Juanjo Low Dose Aspirin) levothyroxine 125 mcg tablet 125 mcg PO QAM ##0 02/04/13 11/28/21 History tramadol 50 mg tablet 50 - 100 mg PO Q4 PRN Pain ##0 02/04/13 11/28/21 History atenolol 50 mg tablet 50 mg PO QAM ##0 05/24/14 11/28/21 History [id number]-syhylkdpb-eduvrzars 3.5 1 drp otic (ear) 2XWK ##0 05/24/14 11/28/21 History mg/mL-10,000 unit/mL-1 % ear solution pravastatin 80 mg tablet 80 mg PO HS ##0 05/24/14 11/28/21 History multivitamin (Multiple Vitamins 1 tab PO QPM #0 tabs 04/22/15 11/28/21 History tablet) cranberry extract 300 mg tablet 300 mg PO BID ##0 07/07/16 11/28/21 History cyanocobalamin (vitamin B-12) 100 100 mcg PO QAM #0 tabs 07/07/16 11/28/21 History mcg tablet gabapentin 300 mg capsule 300 mg PO TID #0 caps 07/07/16 11/28/21 History omeprazole magnesium 20 mg 20 mg PO BID #0 caps 07/07/16 11/28/21 History capsule,delayed release ascorbic acid (vitamin C) 1,000 mg 1 g PO BID ##0 12/03/16 11/28/21 History tablet calcium carbonate 500 mg-vitamin 1 tab PO BID ##0 12/03/16 11/28/21 History D3 5 mcg (200 unit) tablet (Calcium 500 + D) fluticasone propionate 50 2 spray intranasal AMPM ##0 12/03/16 11/28/21 History mcg/actuation nasal spray,suspension lactobacillus combination no.4 3 3,000 mmu cells PO BID ##0 12/03/16 11/28/21 History billion cell capsule (Probiotic) lamotrigine 150 mg tablet 150 mg PO BID #0 tabs 03/28/17 11/28/21 History (Lamictal) lorazepam 1 mg tablet 1 mg PO Q6H PRN Anxiety #0 tabs 03/28/17 11/28/21 History dicyclomine 20 mg tablet 20 mg PO QID ##0 07/01/17 11/28/21 History ipratropium bromide 21 mcg (0.03 2 spray intranasal QID ##0 07/01/17 11/28/21 History %) nasal spray furosemide 20 mg tablet 20 mg PO QAM 01/26/18 11/28/21 History light mineral oil 1 %-mineral oil 2 drp ophthalmic (eye) BID 01/26/18 11/28/21 History 4.5 % eye drops (Soothe XP) meclizine 25 mg tablet 50 mg PO TID PRN Dizziness 01/26/18 11/28/21 History ondansetron HCl 8 mg tablet 8 mg PO Q8 PRN Nausea 01/26/18 11/28/21 History simethicone 80 mg chewable tablet 80 mg PO BID PRN Stomach Upset 01/26/18 11/28/21 History (Gas Relief 80 (simethicone)) famotidine 40 mg tablet 40 mg PO HS 02/08/20 11/28/21 History trazodone 100 mg tablet 200 mg PO HS 02/08/20 11/28/21 History turmeric root extract 500 mg 500 mg PO BID 02/08/20 11/28/21 History capsule vancomycin 125 mg capsule 125 mg PO QAM 02/08/20 11/28/21 History (Vancocin) amlodipine 10 mg tablet 10 mg PO QAM 05/21/20 11/28/21 History losartan 50 mg tablet (Cozaar) 100 mg PO QAM 05/21/20 11/28/21 History pilocarpine HCl 5 mg tablet 5 mg PO TID 05/21/20 11/28/21 History (Salagen (pilocarpine)) cholestyramine-aspartame 4 gram 4 g PO BID@1000,2200 #60 ea 05/24/20 11/28/21 Rx oral powder for susp in a packet (Cholestyramine Light) cetirizine 10 mg capsule (Zyrtec) 10 mg PO QAM 09/24/20 11/28/21 History omega-3 fatty acids 1,000 mg 1,000 mg PO QAM 09/24/20 11/28/21 History capsule lithium carbonate 300 mg tablet 300 mg PO HS 05/23/21 11/28/21 History buspirone 5 mg tablet 5 mg PO TID 07/30/21 11/28/21 History promethazine 25 mg tablet 25 mg PO Q4H PRN Nausea 07/30/21 11/28/21 History Past Med/Surg History Medical History (Updated 11/28/21 @ 07:43 by Aracely Wynne) Anxiety Aspiration pneumonia 2017, suspected to be d/t GI upset, [facility] hospitalization 10/19/21, acid reflux spell, no hospitalization Asthma Stable C. difficile diarrhea chronic, on vancomycin for suppressive therapy, follows with [facility] GI Chronic kidney disease (CKD), stage III (moderate) CVA (cerebral vascular accident) old lacunar infarct in R cerebellar hemisphere noted on 05/2020 MRI brain Depression Fatty liver GERD (gastroesophageal reflux disease) History of bipolar disorder History of breast cancer s/p chemo and radiation--left side History of COVID-19 diagnosed 01/2021--sinus issue, no hospitalization--no issues now Hyperlipidemia Hypertension Hypothyroidism Limb alert care status LUE restriction r/t lymphedema Lumbar stenosis with neurogenic claudication Lymphedema Mild cognitive impairment per [facility] records Mitral valve posterior leaflet prolapse 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 per 05/2020 echo TIA (transient ischemic attack) 2018, no deficits, no neurologist Surgical History H/O colonoscopy H/O cystoscopy H/O dilation and curettage History of bilateral tubal ligation History of breast surgery History of cardiac cath 2016 > no stents History of cataract surgery R/L History of esophagogastroduodenoscopy (EGD) History of foot surgery right History of fusion of cervical spine x2--very limited with ROM History of lumbar spinal fusion x4 History of lymph node dissection of left axilla 03/14/2013- Left axillary lymph node dissection History of removal of Port-a-Cath History of total right knee replacement (TKR) History of vascular access device Port for chemo, later removed Status post total left knee replacement Family History Other No family history of adverse response to anesthesia Social History Smoking Status: Never smoker Second Hand Exposure: No; Hx Alcohol Use: No Hx Substance Use: No Preferred Language: Montserratian Communication Ability: Effective Drawstring Knotter Required: No Beliefs That Will Affect Care: None marital status: Current Living Situation: Spouse Feels Safe at Home: Yes Assistive Devices: Glasses Review of Systems All systems reviewed & are unremarkable except as noted in HPI & below Physical Exam Constitutional: well developed and well nourished; no acute distress Eyes: PERRL, conjunctivae normal, anicteric sclerae ENMT: external ear and nose normal, oropharynx normal Neck: trachea midline, no thyromegaly Respiratory: normal respiratory effort, lungs clear to auscultation Cardiovascular: RRR, no murmur, no edema Musculoskeletal: Right shoulder:Active painful range of motion with crepitation. Tenderness anterolateral acromion and anterior glenoid. She has pain with strength testing. Crepitation with range of motion. Positive impingement signs. Skin: no rashes, warm and dry Neurologic: patellar DTR's 2+ bilat, sensation intact Psychiatric: A+Ox3, euthymic affect Results & Data ([facility]) Diagnostic Findings Right shoulder: End-stage osteoarthritis right shoulder. Significant joint space narrowing glenohumeral joint periarticular osteophyte formation. MRI demonstrates intact rotator cuff
--- NOTE | 2021-12-25 15:05 | Communication Note ---
Date of Service: December 25, 2021 - Outpatient joint assessment: Patient is currently scheduled for inpatient pathway. Per Dr. Haile, re-evaluated pending system levels during current smith demic/surgeon requests outpatient pathway, patient is NOT acceptable candidate for outpatient joint program from anesthesia standpoint pending surgeon's office assessment of pt motivation/support/completion of same day joint program preop requirements.
--- NOTE | 2021-12-28 12:50 | History & Physical Report ---
Date of Service December 28, 2021 Assessment & Plan (1) Primary osteoarthritis, right shoulder: Plan: Treatment options discussed with patient. She has failed conservative measures and would like to proceed with surgical intervention. Risks, benefits and alternatives to surgery including but not limited to infection, DVT, pain, stiffness, need for revision surgery, damage to blood vessels, damage to nerves, PE, , were discussed with the patient and they wish to proceed. Plan on right total shoulder arthroplasty with open subacromial decompression and distal clavicle excision. Surgery scheduled for 12/29/21 at [facility] with Dr. Mills. All questions answered. F/u post op. History of Present Illness Chief Complaint: Right shoulder pain Primary Care Provider: Shakeel Benitez DO 76-year-old female with past medical history significant for high cholesterol, anxiety, TIA, CKD who presents with longstanding right shoulder pain. Patient has end-stage osteoarthritis. She has failed conservative measures. Pain interfering with her daily activity. She would like to proceed with surgical intervention. Patient denies headaches, sweats, fevers, chills, double vision, blurred vision, cough, sore throat, dysphagia, chest pain, sob, wheezing, n/v/d/c, numbness, tingling, fatigue, urinary symptoms, mood disorders. ROS positive for right shoulder pain and stiffness. Allergies Allergy/AdvReac Type Severity Reaction Status Date / Time ciprofloxacin Allergy Intermediate HIVES Verified 11/28/21 07:35 metronidazole Allergy Intermediate hives Verified 11/28/21 07:35 Quinolones Allergy Intermediate Hives Verified 11/28/21 07:35 Sulfa (Sulfonamide Allergy Intermediate HIVES Verified 11/28/21 07:35 Antibiotics) baclofen AdvReac Severe NEURO Verified 11/28/21 07:35 SYMPTOMS morphine AdvReac Severe DELIRIUM Verified 11/28/21 07:35 pantoprazole AdvReac Mild migraines Verified 11/28/21 07:35 zolpidem AdvReac Mild delusions Verified 11/28/21 07:35 Home Medications Medication Instructions Recorded Confirmed Type aspirin 81 mg tablet,delayed 81 mg PO QAM #0 tabs 11/17/11 11/28/21 History release (Juanjo Low Dose Aspirin) levothyroxine 125 mcg tablet 125 mcg PO QAM ##0 02/04/13 11/28/21 History tramadol 50 mg tablet 50 - 100 mg PO Q4 PRN Pain ##0 02/04/13 11/28/21 History atenolol 50 mg tablet 50 mg PO QAM ##0 05/24/14 11/28/21 History [id number]-rhwtrfamu 3.5 1 drp otic (ear) 2XWK ##0 05/24/14 11/28/21 History mg/mL-10,000 unit/mL-1 % ear solution pravastatin 80 mg tablet 80 mg PO HS ##0 05/24/14 11/28/21 History multivitamin (Multiple Vitamins 1 tab PO QPM #0 tabs 04/22/15 11/28/21 History tablet) cranberry extract 300 mg tablet 300 mg PO BID ##0 07/07/16 11/28/21 History cyanocobalamin (vitamin B-12) 100 100 mcg PO QAM #0 tabs 07/07/16 11/28/21 History mcg tablet gabapentin 300 mg capsule 300 mg PO TID #0 caps 07/07/16 11/28/21 History omeprazole magnesium 20 mg 20 mg PO BID #0 caps 07/07/16 11/28/21 History capsule,delayed release ascorbic acid (vitamin C) 1,000 mg 1 g PO BID ##0 12/03/16 11/28/21 History tablet calcium carbonate 500 mg-vitamin 1 tab PO BID ##0 12/03/16 11/28/21 History D3 5 mcg (200 unit) tablet (Calcium 500 + D) fluticasone propionate 50 2 spray intranasal AMPM ##0 12/03/16 11/28/21 History mcg/actuation nasal spray,suspension lactobacillus combination no.4 3 3,000 mmu cells PO BID ##0 12/03/16 11/28/21 History billion cell capsule (Probiotic) lamotrigine 150 mg tablet 150 mg PO BID #0 tabs 03/28/17 11/28/21 History (Lamictal) lorazepam 1 mg tablet 1 mg PO Q6H PRN Anxiety #0 tabs 03/28/17 11/28/21 History dicyclomine 20 mg tablet 20 mg PO QID ##0 07/01/17 11/28/21 History ipratropium bromide 21 mcg (0.03 2 spray intranasal QID ##0 07/01/17 11/28/21 History %) nasal spray furosemide 20 mg tablet 20 mg PO QAM 01/26/18 11/28/21 History light mineral oil 1 %-mineral oil 2 drp ophthalmic (eye) BID 01/26/18 11/28/21 History 4.5 % eye drops (Soothe XP) meclizine 25 mg tablet 50 mg PO TID PRN Dizziness 01/26/18 11/28/21 History ondansetron HCl 8 mg tablet 8 mg PO Q8 PRN Nausea 01/26/18 11/28/21 History simethicone 80 mg chewable tablet 80 mg PO BID PRN Stomach Upset 01/26/18 11/28/21 History (Gas Relief 80 (simethicone)) famotidine 40 mg tablet 40 mg PO HS 02/08/20 11/28/21 History trazodone 100 mg tablet 200 mg PO HS 02/08/20 11/28/21 History turmeric root extract 500 mg 500 mg PO BID 02/08/20 11/28/21 History capsule vancomycin 125 mg capsule 125 mg PO QAM 02/08/20 11/28/21 History (Vancocin) amlodipine 10 mg tablet 10 mg PO QAM 05/21/20 11/28/21 History losartan 50 mg tablet (Cozaar) 100 mg PO QAM 05/21/20 11/28/21 History pilocarpine HCl 5 mg tablet 5 mg PO TID 05/21/20 11/28/21 History (Salagen (pilocarpine)) cholestyramine-aspartame 4 gram 4 g PO BID@1000,2200 #60 ea 05/24/20 11/28/21 Rx oral powder for susp in a packet (Cholestyramine Light) cetirizine 10 mg capsule (Zyrtec) 10 mg PO QAM 09/24/20 11/28/21 History omega-3 fatty acids 1,000 mg 1,000 mg PO QAM 09/24/20 11/28/21 History capsule lithium carbonate 300 mg tablet 300 mg PO HS 05/23/21 11/28/21 History buspirone 5 mg tablet 5 mg PO TID 07/30/21 11/28/21 History promethazine 25 mg tablet 25 mg PO Q4H PRN Nausea 07/30/21 11/28/21 History Past Med/Surg History Medical History (Updated 11/28/21 @ 07:43 by Aracely Wynne) Anxiety Aspiration pneumonia 2017, suspected to be d/t GI upset, [facility] hospitalization 10/19/21, acid reflux spell, no hospitalization Asthma Stable C. difficile diarrhea chronic, on vancomycin for suppressive therapy, follows with [facility] GI Chronic kidney disease (CKD), stage III (moderate) CVA (cerebral vascular accident) old lacunar infarct in R cerebellar hemisphere noted on 05/2020 MRI brain Depression Fatty liver GERD (gastroesophageal reflux disease) History of bipolar disorder History of breast cancer s/p chemo and radiation--left side History of COVID-19 diagnosed 01/2021--sinus issue, no hospitalization--no issues now Hyperlipidemia Hypertension Hypothyroidism Limb alert care status LUE restriction r/t lymphedema Lumbar stenosis with neurogenic claudication Lymphedema Mild cognitive impairment per [facility] records Mitral valve posterior leaflet prolapse 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 per 05/2020 echo TIA (transient ischemic attack) 2018, no deficits, no neurologist Surgical History H/O colonoscopy H/O cystoscopy H/O dilation and curettage History of bilateral tubal ligation History of breast surgery History of cardiac cath 2016 > no stents History of cataract surgery R/L History of esophagogastroduodenoscopy (EGD) History of foot surgery right History of fusion of cervical spine x2--very limited with ROM History of lumbar spinal fusion x4 History of lymph node dissection of left axilla 03/14/2013- Left axillary lymph node dissection History of removal of Port-a-Cath History of total right knee replacement (TKR) History of vascular access device Port for chemo, later removed Status post total left knee replacement Family History Other No family history of adverse response to anesthesia Social History Smoking Status: Never smoker Second Hand Exposure: No; Hx Alcohol Use: No Hx Substance Use: No Preferred Language: Spanish Communication Ability: Effective Multi Sensor Operator Required: No Beliefs That Will Affect Care: None marital status: Current Living Situation: Spouse Feels Safe at Home: Yes Assistive Devices: Glasses Review of Systems All systems reviewed & are unremarkable except as noted in HPI & below Physical Exam Constitutional: well developed and well nourished; no acute distress Eyes: PERRL, conjunctivae normal, anicteric sclerae ENMT: external ear and nose normal, oropharynx normal Neck: trachea midline, no thyromegaly Respiratory: normal respiratory effort, lungs clear to auscultation Cardiovascular: RRR, no murmur, no edema Musculoskeletal: Right shoulder:Active painful range of motion with crepitation. Tenderness anterolateral acromion and anterior glenoid. She has pain with strength testing. Crepitation with range of motion. Positive impingement signs. Skin: no rashes, warm and dry Neurologic: patellar DTR's 2+ bilat, sensation intact Psychiatric: A+Ox3, euthymic affect Results & Data ([facility]) Diagnostic Findings Right shoulder: End-stage osteoarthritis right shoulder. Significant joint space narrowing glenohumeral joint periarticular osteophyte formation. MRI demonstrates intact rotator cuff
[~2021-12-29 12:38] MED LIST changes: +ACETAMINOPHEN 500 MG TAB PO SCH; -AMLO-110 PO; -ARTIDRO2 OPB; -ASCA500 PO; -ASPI-319 PO; -CALC-51 PO; -CLB/200 PO; -CRAN1TAB9 PO; -CYAN100T PO; +CeleBREX 200 MG CAP PO SCH; +FAMOTIDINE 20 MG TAB PO SCH; -FLUT0.15 NAE; -FURO20TA PO; -GABA-113 PO; +GABAPENTIN 300 MG CAP PO SCH; -LEVO125T5 PO; +LR 15ML/HR IV SCH; -MECL1TAB42 PO; +METOCLOPRAMIDE HCL 10 MG TABLET PO SCH; -MIRT15TA2 PO; -MULT-506 PO; -ONDA-170 PO; -PRLSR20 PO; -PROB1TAB16 PO; -PROM25TA9 PO; -RANI300T2 PO; -TRAM-453 PO; +TRANEXAMIC ACID 1,000 MG **IV Intra-op IV SCH; +TRANEXAMIC ACID 1,000 MG **IV Pre-op IV SCH; -TRAZ100T29 PO; +ceFAZolin 2000MG 2,000 MG/15 ML SYR IV SCH; +dexAMETHasone 4 MG TAB PO SCH
[2021-12-29] MEDS ORDERED: BUPIVACAINE 0.5 % 5 MG/1 ML PF 10ML VIAL ONE (12:50)
--- NOTE | 2021-12-29 12:56 | History & Physical Bridge Note ---
Date of Service December 29, 2021 History & Physical Bridge Note I have examined the patient, reviewed the History & Physical and in the interval since the performance of the History & Physical I have noted the following changes of clinical significance: no changes noted
[2021-12-29] MEDS ORDERED: Nursing to Pharmacy Communication SCH (13:15)
[2021-12-29] MEDS ORDERED: ONDANSETRON INJ 2 MG/ML 2 ML VIAL ONE (13:59)
[2021-12-29] MEDS ORDERED: fentaNYL citrate 100 MCG/2 ML VIAL ONE ×2 (13:59→16:38)
[2021-12-29] MEDS ORDERED: MIDAZOLAM HCL 1 MG/ML 2ML VIAL ONE (13:59)
[2021-12-29] MEDS ORDERED: PROPOFOL IV EMULSION 10 MG/ML 20 ML VIAL IV ONE (13:59)
[2021-12-29] MEDS ORDERED: ROCURONIUM BROMIDE 10 MG/ML 5 ML VIAL IV ONE ×2 (13:59→18:55)
[2021-12-29] MEDS ORDERED: LIDOCAINE 2% MPF LOCAL 5 ML VIAL INFIL ONE (13:59)
--- NOTE | 2021-12-29 14:01 | Anesthesiology Consultation ---
Date of Service December 29, 2021 Assessment & Plan ASA ASA3 Proposed Anesthesia Anesthesia Type: General Regional Site: Interscalene Risk / Benefits Reviewed With: PT / POA / Parent / Guardian, Accepts Plan and Informed Consent Obtained History Surgery Operation Date: 10/22/21 10:15 Proposed Procedures p Right Total Shoulder Arthroplasty, Subacromial Decolpression and Distal Clavical Excision - Andrea Mills MD Operation Date: 12/29/21 14:45 Proposed Procedures p Right Total Shoulder Arthroplasty, Subacromial Decompression, Distal Clavicle Excision - Andrea Mills MD Height/Weight Height: 5 ft 7 in Weight: 83.1 kg Allergies Allergy/AdvReac Type Severity Reaction Status Date / Time ciprofloxacin Allergy Intermediate HIVES Verified 12/29/21 13:17 metronidazole Allergy Intermediate hives Verified 12/29/21 13:17 Sulfa (Sulfonamide Allergy Intermediate HIVES Verified 12/29/21 13:17 Antibiotics) baclofen AdvReac Severe NEURO Verified 12/29/21 13:17 SYMPTOMS pantoprazole AdvReac Mild migraines Verified 12/29/21 13:17 zolpidem AdvReac Mild delusions Verified 12/29/21 13:17 Medications Home Medications Medication Instructions Recorded Confirmed Last Taken aspirin 81 mg tablet,delayed 81 mg PO QAM #0 tabs 11/17/11 11/28/21 12/29/21 10:00 release (Juanjo Low Dose Aspirin) levothyroxine 125 mcg tablet 125 mcg PO QAM ##0 02/04/13 11/28/21 12/29/21 10:00 tramadol 50 mg tablet 50 - 100 mg PO Q4 PRN Pain ##0 02/04/13 12/29/21 2 Weeks Ago ~12/15/21 atenolol 50 mg tablet 50 mg PO QAM ##0 05/24/14 11/28/21 12/29/21 10:00 [id number]-lxuwiefif-squzxgxxw 3.5 1 drp otic (ear) 2XWK ##0 05/24/14 12/29/21 mg/mL-10,000 unit/mL-1 % ear solution pravastatin 80 mg tablet 80 mg PO HS ##0 05/24/14 12/29/21 12/28/21 22:00 multivitamin (Multiple Vitamins 1 tab PO QPM #0 tabs 04/22/15 12/29/21 12/28/21 22:00 tablet) cranberry extract 300 mg tablet 300 mg PO BID ##0 07/07/16 12/29/21 12/28/21 22:00 gabapentin 300 mg capsule 300 mg PO TID #0 caps 07/07/16 11/28/21 12/29/21 10:00 omeprazole magnesium 20 mg 20 mg PO BID #0 caps 07/07/16 11/28/21 12/29/21 10:00 capsule,delayed release ascorbic acid (vitamin C) 1,000 mg 1 g PO BID ##0 12/03/16 12/29/21 12/28/21 22:00 tablet calcium carbonate 500 mg-vitamin 1 tab PO BID ##0 12/03/16 12/29/21 12/28/21 10:00 D3 5 mcg (200 unit) tablet (Calcium 500 + D) fluticasone propionate 50 2 spray intranasal AMPM ##0 12/03/16 12/29/21 12/28/21 22:00 mcg/actuation nasal spray,suspension lactobacillus combination no.4 3 3,000 mmu cells PO BID ##0 12/03/16 12/29/21 12/28/21 22:00 billion cell capsule (Probiotic) lamotrigine 150 mg tablet 150 mg PO BID #0 tabs 03/28/17 12/29/21 12/29/21 10:00 (Lamictal) lorazepam 1 mg tablet 1 mg PO Q6H PRN Anxiety #0 tabs 03/28/17 12/29/21 12/28/21 22:00 dicyclomine 20 mg tablet 20 mg PO QID ##0 07/01/17 12/29/21 12/28/21 22:00 ipratropium bromide 21 mcg (0.03 2 spray intranasal QID ##0 07/01/17 12/29/21 12/28/21 22:00 %) nasal spray furosemide 20 mg tablet 20 mg PO QAM 01/26/18 12/29/21 12/28/21 10:00 light mineral oil 1 %-mineral oil 2 drp ophthalmic (eye) BID 01/26/18 12/29/21 12/28/21 22:00 4.5 % eye drops (Soothe XP) meclizine 25 mg tablet 50 mg PO TID PRN Dizziness 01/26/18 12/29/21 1 Month Ago ~11/28/21 ondansetron HCl 8 mg tablet 8 mg PO Q8 PRN Nausea 01/26/18 12/29/21 1 Month Ago ~11/28/21 simethicone 80 mg chewable tablet 80 mg PO BID PRN Stomach Upset 01/26/18 12/29/21 1 Month Ago (Gas Relief 80 (simethicone)) ~11/28/21 famotidine 40 mg tablet 40 mg PO HS 02/08/20 12/29/21 12/28/21 23:00 trazodone 100 mg tablet 200 mg PO HS 02/08/20 12/29/21 12/28/21 22:00 turmeric root extract 500 mg 500 mg PO BID 02/08/20 12/29/21 12/28/21 10:00 capsule vancomycin 125 mg capsule 125 mg PO QAM 02/08/20 11/28/21 12/29/21 10:00 (Vancocin) amlodipine 10 mg tablet 10 mg PO QAM 05/21/20 12/29/21 12/29/21 10:00 losartan 50 mg tablet (Cozaar) 100 mg PO QAM 05/21/20 12/29/21 12/28/21 10:00 pilocarpine HCl 5 mg tablet 5 mg PO TID 05/21/20 11/28/21 12/29/21 10:00 (Salagen (pilocarpine)) cholestyramine-aspartame 4 gram 4 g PO BID@1000,2200 #60 ea 05/24/20 12/29/21 12/28/21 17:00 oral powder for susp in a packet (Cholestyramine Light) cetirizine 10 mg capsule (Zyrtec) 10 mg PO QAM 09/24/20 12/29/21 12/28/21 10:00 omega-3 fatty acids 1,000 mg 1,000 mg PO QAM 09/24/20 12/29/21 12/28/21 10:00 capsule lithium carbonate 300 mg tablet 300 mg PO HS 05/23/21 12/29/21 12/28/21 21:00 buspirone 5 mg tablet 5 mg PO TID 07/30/21 11/28/21 12/29/21 10:00 promethazine 25 mg tablet 25 mg PO Q4H PRN Nausea 07/30/21 12/29/21 1 Month Ago ~11/28/21 celecoxib 200 mg capsule (Celebrex) 200 mg PO HS 12/29/21 12/29/21 12/28/21 22:00 cyanocobalamin (vitamin B-12) 100 100 mcg PO DAILY 12/29/21 12/29/21 12/28/21 10:00 mcg tablet (Vitamin B-12) Active Medications Generic Name Dose Route Start Last Admin Trade Name Freq PRN Reason Stop Dose Admin Acetaminophen 1,000 mg 12/29/21 06:00 12/29/21 13:35 Acetaminophen 500 Mg Tab PO 12/29/21 18:00 1,000 mg PREOP BABATUNDE Administration Celecoxib 200 mg 12/29/21 06:00 12/29/21 13:38 Celebrex 200 Mg Cap PO 12/29/21 18:00 200 mg PREOP BABATUNDE Administration Dexamethasone 8 mg 12/29/21 06:00 12/29/21 13:35 Dexamethasone 4 Mg Tab PO 12/29/21 18:00 8 mg PREOP BABATUNDE Administration Famotidine 20 mg 12/29/21 06:00 12/29/21 13:35 Famotidine 20 Mg Tab PO 12/29/21 18:00 20 mg PREOP BABATUNDE Administration Gabapentin 300 mg 12/29/21 06:00 12/29/21 13:35 Gabapentin 300 Mg Cap PO 12/29/21 18:00 300 mg PREOP BABATUNDE Administration Lactated Ringer's 1,000 mls @ 15 mls/hr 12/29/21 06:00 12/29/21 13:39 Lr IV 12/30/21 05:59 15 mls/hr .Q24H BABATUNDE Administration Metoclopramide HCl 10 mg 12/29/21 06:00 12/29/21 13:35 Metoclopramide Hcl 10 Mg Tablet PO 12/29/21 18:00 10 mg PREOP BABATUNDE Administration Past Medical History Medical History Anxiety Aspiration pneumonia 2017, suspected to be d/t GI upset, [facility] hospitalization 10/19/21, acid reflux spell, no hospitalization Asthma Stable C. difficile diarrhea chronic, on vancomycin for suppressive therapy, follows with [facility] GI Chronic kidney disease (CKD), stage III (moderate) CVA (cerebral vascular accident) old lacunar infarct in R cerebellar hemisphere noted on 05/2020 MRI brain Depression Fatty liver GERD (gastroesophageal reflux disease) History of bipolar disorder History of breast cancer s/p chemo and radiation--left side History of COVID-19 diagnosed 01/2021--sinus issue, no hospitalization--no issues now Hyperlipidemia Hypertension Hypothyroidism Limb alert care status LUE restriction r/t lymphedema Lumbar stenosis with neurogenic claudication Lymphedema Mild cognitive impairment per [facility] records Mitral valve posterior leaflet prolapse 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 per 05/2020 echo TIA (transient ischemic attack) 2018, no deficits, no neurologist Exercise / Class Metabolic Activity II 4-5 Yardwork/Stairs/Walk up hill Past Family History Family History Other No family history of adverse response to anesthesia Past Surgical History Surgical History H/O colonoscopy H/O cystoscopy H/O dilation and curettage History of bilateral tubal ligation History of breast surgery History of cardiac cath 2016 > no stents History of cataract surgery R/L History of esophagogastroduodenoscopy (EGD) History of foot surgery right History of fusion of cervical spine x2--very limited with ROM History of lumbar spinal fusion x4 History of lymph node dissection of left axilla 03/14/2013- Left axillary lymph node dissection History of removal of Port-a-Cath History of total right knee replacement (TKR) History of vascular access device Port for chemo, later removed Status post total left knee replacement Past Anesthesia History No Hx of Anesthesia Complications and No Family Hx of Anesthesia Complications History of PONV No Hx of PONV and No Hx of Motion Sickness Social History Smoking Status: Never smoker Do You Dip or Chew Tobacco: No Hx Alcohol Use: No Hx Substance Use: No substance use type: does not use Review of Systems denies fever/cough/ colds/ chest pain/ SOB/ DEANN denies DEANN Physical Exam Vital Signs Last Vital Signs Temp 36.8 C 12/29/21 13:11 Pulse 67 12/29/21 13:11 Resp 18 12/29/21 13:11 BP 151/90 H 12/29/21 13:11 Pulse Ox 93 12/29/21 13:11 O2 Del Method 12/29/21 13:11 ENMT Mouth: no TMJ abnormality and no dentition abnormality Thyromental Distance: > or= 3.5 Finger Breadths Mallampati Class: II Neck neck extension not limited Respiratory normal respiratory effort; no respiratory distress Auscultation: lungs clear to auscultation bilaterally Cardiovascular Rate/Rhythm: regular rate and regular rhythm Neurologic moves all extremities Psychiatric Orientation: alert and oriented x 3 Testing Laboratory Results Blood Type A Positive 12/29/21 12:51 Antibody Screen POSITIVE A 12/29/21 12:51 Electrocardiogram Date: 08/29/21 Normal sinus rhythm at 60 bpm. Nonspecific T wave abnormality. Chest X-Ray Date: 09/26/21 FINDINGS: PA and lateral chest radiographs are compared to study dated 05/21/2020. The heart is top normal for projection noting atherosclerotic calcification of the thoracic aorta. Chronic interstitial thickening is similar to previous. The lungs and pleural spaces are clear. There is no pneumothorax. The skeletal structures are osteopenic. The bony thorax appears intact. Fusion hardware is seen in the lower cervical spine and at the thoracolumbar junction. Degenerative change and hyperkyphosis is seen in the thoracic spine. Arthritic change is noted in the right shoulder. IMPRESSION: No active disease in the chest. Echocardiogram Date: 05/21/20 EF 60-65%. No regional motion abnormality. Grade 1 diastolic dysfunction. Moderate concentric LVH. Borderline posterior MVP. Trace MR. Stress Test Date: 02/09/20 Dobutamine MPHR 95% Nonischemic DSE No arrhythmias Cardiac Catheterization Date: 03/16/16 R heart cath mean PA normal (23 mmHg) No pulmonary hypertension at rest Cervical Spine Date: 05/29/21 MRI 1. Limited study secondary to motion and susceptibility artifact. 2. Postoperative changes of the cervical spine as above without high-grade central canal or foraminal narrowing. 3. Multilevel foraminal narrowing, moderate on the left at C2-C3 and C3-C4. 4. Normal signal of the cervical spinal cord. Other Testing CT abdomen/pelvis 08/08/[address] finding in the abdomen or pelvis to explain patient's symptoms. 2. Right lower lobe changes may be related to infection/inflammation. Superimposed aspiration is also a consideration. 3. Hepatosplenomegaly. Hepatic steatosis. Carotid doppler 05/21/20 No hemodynamically significant stenosis seen within the carotid arteries.
[2021-12-29] MEDS ORDERED: ePHEDrine sulfate 50 MG/ML AMP IV PRN (15:18)
[2021-12-29] MEDS ORDERED: MEPERIDINE HCL 25 MG/ML CARP/VIAL IV PRN (15:18)
[2021-12-29] MEDS ORDERED: ATROPINE SULFATE 0.1 MG/ML 10ML SYR IV PRN (15:18)
[2021-12-29] MEDS ORDERED: MoRPHine SULFATE 10 MG/ML CARP/VIAL IV PRN (15:18)
[2021-12-29] MEDS ORDERED: ONDANSETRON INJ 2 MG/ML 2 ML VIAL IV PRN (15:18)
[2021-12-29] MEDS ORDERED: fentaNYL citrate 100 MCG/2 ML VIAL IV PRN (15:18)
[2021-12-29] MEDS ORDERED: ePHEDrine sulfate 50 MG/ML AMP ONE (17:14)
[2021-12-29] MEDS ORDERED: DEXAMETHASONE SOD INJ 4 MG/ML VIAL ONE (17:14)
[2021-12-29] MEDS ORDERED: EpINEphrine HCL INJ 1 MG/ML 1ML SYRINGE ONE (18:12)
[2021-12-29] MEDS ORDERED: GLYCOPYRROLATE 0.2 MG/ML VIAL ONE (18:55)
[2021-12-29] MEDS ORDERED: NEOSTIGMINE METHYLSULFATE 1 MG/ML 10ML VIAL ONE (18:55)
--- NOTE | 2021-12-29 20:34 | Post Operative Brief Note ---
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 I identified the patient and participated in the time-out.: Yes Procedure Operation Date: 10/22/21 10:15 <No data on this case meets the specified criteria> Operation Date: 12/29/21 14:45 Actual Procedures p Right Total Shoulder Arthroplasty, open Subacromial Decompression and Distal Clavicle Excision(Right) biceps tenodesis- Andrea Mills MD Surgeon Andrea Mills MD 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
--- NOTE | 2021-12-29 20:36 | Operative Report ---
Post Operative Report Pre & Post Diagnosis Operation Date: 10/22/21 10:15 <No data on this case meets the specified criteria> Operation Date: 12/29/21 14:45 Pre-Op Diagnosis: Primary Osteoarthritis glenohumeral and acromioclavicular joint, Right Shoulder; Right Shoulder subacromial Impingement Post-Op Diagnosis: Primary Osteoarthritis glenohumeral and acromioclavicular joint, Right Shoulder; Right Shoulder subacromial Impingement, chronic biceps tenosynovitis and complex degenerative labral tear I identified the patient and participated in the time-out.: Yes Procedure Operation Date: 10/22/21 10:15 <No data on this case meets the specified criteria> Operation Date: 12/29/21 14:45 Actual Procedures p Right Total Shoulder Arthroplasty, Subacromial Decompression, Distal Clavicle Excision(Right) biceps tenodesis- Andrea Mills MD Surgeon Andrea Mills MD Car Salter Silverio FAIR Estimated Blood Loss 100 Findings Consistent with Post-Op Diagnosis Specimens Humeral head cut Drains 2 Hemovac Complications none Disposition Disposition: Recovery Room Indications 76-year-old female with chronic right shoulder pain progressive over time. Radiographs and MRI demonstrate that she has subacromial impingement and hypertrophic AC joint osteoarthritis which is symptomatic and advanced glenohumeral osteoarthritis with large inferior humeral osteophyte [id number] glenohumeral joint with end-stage osteoarthritis. Rotator cuff was intact she had some minor tendinitis or tendinopathy of the supraspinatus likely related to impingement. Description of Procedure Patient was taken to the operating room anesthetized under regional block and general anesthetic. Patient was placed in a 40 degree beach chair position with a foam headrest protective eyewear all extremities padded teds and SCDs were placed. A towel roll was placed on the medial border of the scapula of the right upper extremity. The arm was examined and range of motion demonstrated 150 degrees forward flexion 80 degrees external rotation 110 degrees abduction [id number] crepitation and hypertrophic AC joint. An anterior deltopectoral approach was performed. Longitudinal incision was made in deltopectoral interval. Skin incised sharply and subcutaneous flaps elevated. The deltopectoral interval was identified. The cephalic vein demonstrated smaller than usual cephalic vein but 1 large crossing branch which was tied off with silk ties and divided. The cephalic vein was retracted laterally with the del toid. The upper centimeter of the pectoralis was released for inferior exposure. Biceps tendon demonstrated chronic tenosynovitis in the bicipital groove down to the pectoralis tendon with intact biceps tendon. A thorough tenosynovectomy was performed and the biceps was tenodesed to the pectoralis tendon using #2 FiberWire [id number]-[id number] sutures. Proximal biceps was resected. Rotator cuff findings demonstrated normal-appearing rotator cuff subscapularis supraspinatus infraspinatus and teres minor all look normal. There were anterior-inferior subacromial spurs causing impingement and hyp ertrophic AC joint also contributed to impingement. The circumflex vessels were tied off with silk ties and divided laterally. The subscapularis muscle fibers were split at the level of circumflex vessels and released off the inferior capsule with a Kitner elevator and then a blunt Hohmann retractor was placed protect the axillary nerve. The rotator interval was released down to the level of the glenoid. The subscapularis tendon was taken down with a transtendinous incision leaving a cuff of tissue for repair on the lesser tuberosity. The humeral head findings demonstrated central region grade 4 down to bone with articular thinning otherwise and a large inferior osteophyte mainly posterior inferior which extended both posteriorly and anteriorly. The osteophytes were resected using an artist chisel and rongeur. The inferior capsule was released off the bone subperiosteally using a Brooks elevator. A #1 Vicryl traction suture was placed into the free edge of the subscapularis tendon. A Fukuda retractor was placed into the joint. Capsule was released with Cummings scissors down to the glenoid and off of the anterior glenoid to the rotator interval which was released to meet the capsular release creating a 360 degree release of subscapularis tendon. An anterior Bankart retractor was placed. The glenoid and labral findings demonstrated grade 4 articular wear of the glenoid centrally with a complex degenerative labral tear with a meniscoid type labrum with multiple degenerative flap tears circumferentially. There was large anterior superior osteophyte complex. The glenoid labrum was resected circumferentially and the remainder the biceps tendon was resected. The osteophytes were resected with a rongeur. An anterior-inferior and posterior inferior capsule release was performed electrocautery on bone and a Brooks elevator. The axillary nerve was protected inferiorly with the blunt Hohmann. Attention was taken back to the humeral head. Humeral head was exposed with extension and external rotation. The oscillating saw was used to make an anatomic neck cut removing the articular surface. All the circumferential remaining osteophytes were trimmed with a rongeur. The humerus was sized for a size 2 nucleus and initially a 48 mm humeral head. The bone was assessed with a thumb press test and there was solid cancellous bone. The guide for the nucleus was placed centrally and then the guidepin was placed. The surface reamer was used followed by the central drill for the nucleus. The trial nucleus was inserted and the cut protector was placed. The humerus was retracted posterior to the glenoid . A Tornier retractor ,Hohmann retractors as well as an anterior Bankart retractor were placed. The glenoid was fully exposed. The Tornier Cortiloc glenoid was used. The small 40 radius size was chosen. The central drill hole was made followed by the reamer for the glenoid followed by widening the central hole for the central post. The guide for the peripheral drill holes was placed and the drill holes were made. The trial reduction performed with stable fixation. The trial removed and the glenoid copiously irrigated with pulsed saline solution. The drill holes were packed with epinephrine-soaked tampons. The [place] G cement was vacuum mixed. The Tornier small 40 radius Cortiloc glenoid component was then cemented in position after drying the glenoid after removal of the tampons. Fixation was excellent. All excess cement was cleared. When the cement cured we moved onto removing the cut protector doing a trial reduction with a 48 millimeter humeral head trial. Stability was assessed and there was some residual posterior instability with forward flexion and adduction I tried the 48 balancing head and 50 mm standard head however it required a 52 mm x 21 balancing head stable to achieve complete stability through full range of motion without subluxation.. Soft tissue tension on the subscapularis tendon was satisfactory. The trial components of the humeral head were removed and the 3 drill holes were made in the harder bone in the biceps groove area and transosseous #5 FiberWire sutures were placed. Then the humeral cut surface was reexposed with retractors. There were some cysts within humeral head medial to the nucleus that I used the bone graft harvested from the humeral head cut which was harvested in piecemeal cancellous fragments that were impacted into those areas and around the periphery of the nucleus prior to impacting it to get a more substantial press-fit. the size 2 nucleus was impacted leaving it slightly proud until the 52 x 21 mm simplicity humeral head was placed into the nucleus and then both were impacted into the humerus with a tight press-fit. The humerus was reduced to the glenoid. The stability was verified. The subscapularis tendon was repaired in 2 [id number]-[id number] #2 FiberWire sutures. Lateral row fixation was performed with interrupted tyjnrk-qm-[id number] #2 FiberWire sutures and rotator interval was closed with #2 FiberWire sutures. Range of motion demonstrated[] without tension on repair. The pectoralis was repaired with jwlaon-xz-tdwua #2 FiberWire sutures placing sutures back through the biceps tendon to reinforce the tenodesis. Attention was then taken to the distal clavicle excision. A transverse incision was made across the AC joint and extended to the lateral acromion. Skin incised sharply subcutaneous flaps were elevated and subcutaneous bleeders were cauterized. Another transverse incision was made starting 1 cm medial to the AC joint extending over the hypertrophic osteophytes and over the anterior acromion to the lateral deltoid. Subperiosteal dissection was performed to peel off the deltoid anteriorly release the CA ligament off the anterior acromial spurs and shell out 1 cm distal clavicle subperiosteally. Appropriate retractors were placed and a 1 cm distal clavicle was resected with the oscillating saw. The osteophytes over the AC joint and anterior acromion were resected with a rongeur and then the saw was used to resect the spur on the anterior acromion and a rasp was used on the undersurface to create a flatter undersurface of the acromion. There did not appear to be any impingement with rotation of the arm. The wound was irrigated and the deltoid trapezius interval was repaired with interrupted #2 FiberWire sutures with transosseous sutures to the anterior acromion. The subcutaneous tissues were closed after 2-0 Vicryl and the skin was closed with renzo. Attention was taken back to the deltopectoral incision. This was irrigated copiously. 2 Hemovac drains were placed. The deltopectoral interval was repaired with rizzav-ea-urvre #1 Vicryl sutures. The subcutaneous tissue was repaired with 2-0 Vicryl sutures and the skin was closed with renzo. Sterile dressings were applied to both incisions and a sling immobilizer. The patient tolerated the procedure well. Silverio FAIR acted as bilingual office assistant throughout the procedure. He functioned as bilingual office assistant assisting in all aspects of the procedure including patient positioning prepping draping, arm positioning, soft tissue retraction,, instrument management, subcutaneous and skin closure and postop care the patient as well. I attest to the content of the Intraoperative Record and any orders documented therein. Any exceptions are noted below.
--- NOTE | 2021-12-29 21:31 | Anesthesiology Progress Note ---
Date of Service December 29, 2021 Anesthesia Post Procedure Vital Signs Vital Signs: Temp Pulse Resp BP BP Pulse Ox O2 Del Method 12/29/21 21:25 72 17 153/53 H 95 Nasal Cannula 12/29/21 21:15 73 17 151/50 H 93 Room Air 12/29/21 21:05 72 16 151/51 H 98 Oxymask 12/29/21 20:57 36.3 C L 77 16 136/47 L 97 Oxymask 12/29/21 13:11 36.8 C 67 18 151/90 H 93 Room Air O2 Flow Rate 12/29/21 21:25 2 12/29/21 21:15 12/29/21 21:05 9 12/29/21 20:57 9 12/29/21 13:11 Pain Intensity Right Shoulder: Pain Intensity: 8 Head: Pain Intensity: 2 Transfer of Care Handoff Completed per policy Notes Mental Status: alert / awake / arousable and participated in evaluation Patient Amnestic to Procedure: Yes Nausea / Vomiting: adequately controlled Pain: adequately controlled Airway Patency, RR, SpO2: stable & adequate BP & HR: stable & adequate Hydration State: stable & adequate Anesthetic Complications: no major complications apparent and Pt Satisfied with anesthetic care
[2021-12-29] MEDS ORDERED: SIMETHICONE 80 MG CHEW PO PRN (22:47)
[2021-12-29] MEDS ORDERED: HYDROmorphone INJ 0.5 MG/0.5 ML SYR IV PRN (22:47)
[2021-12-29] MEDS ORDERED: LORazepam 1 MG TAB PO PRN (22:47)
[2021-12-29] MEDS ORDERED: bisacodyL 10 MG SUPP PR PRN (22:47)
[2021-12-29] MEDS ORDERED: MAGNESIUM HYDROXIDE SUSP 30 ML UDC PO PRN (22:47)
[2021-12-29] MEDS ORDERED: PROMETHAZINE HCL 25 MG TAB PO PRN (22:47)
[2021-12-29] MEDS ORDERED: NALOXONE HCL 0.4 MG/1 ML VIAL/CARP IV PRN (22:47)
[2021-12-29] MEDS ORDERED: SODIUM CHLORIDE 0.9% 1000ML 1,000 ML IV SCH (22:47)
[2021-12-29] MEDS ORDERED: LIGHT MINERAL OIL MINERAL OIL OP SCH (22:47)
[2021-12-29] MEDS ORDERED: METOCLOPRAMIDE HCL INJ 5 MG/ML 2 ML VIAL IV PRN (22:47)
[2021-12-29] MEDS ORDERED: MECLIZINE HCL 25 MG TAB PO PRN (22:47)
[2021-12-30] MEDS ORDERED: ONDANSETRON 4 MG OD TAB PO PRN (00:26)
[2021-12-30] MEDS ORDERED: MULTIVITAMIN TAB PO SCH (00:30)
[2021-12-30] MEDS: DICYCLOMINE HCL 20 MG TAB PO SCH ×5 (01:11→21:13)
[2021-12-30] MEDS: traZODone HCL 100 MG TAB PO SCH ×2 (01:12→21:07)
[2021-12-30] MEDS: ACETAMINOPHEN 500 MG TAB PO SCH ×4 (01:12→21:05)
[2021-12-30] MEDS: ASCORBIC ACID 500 MG TAB PO SCH ×3 (01:13→21:11)
[2021-12-30] MEDS: CHOLESTYRAMINE LIGHT 4 GM PKT PO SCH ×3 (01:14→21:25)
[2021-12-30] MEDS: SENNA 8.6 MG TAB PO SCH ×2 (01:14→21:09)
[2021-12-30] MEDS: DOCUSATE SODIUM 100 MG CAP PO SCH ×3 (01:14→21:06)
[2021-12-30] MEDS: PRAVASTATIN SOD 40 MG TAB PO SCH ×2 (01:15→21:14)
[2021-12-30] MEDS: CALCIUM 600MG + VIT D 400 IU TAB PO SCH ×3 (01:16→21:12)
[2021-12-30] MEDS: FAMOTIDINE 40 MG TABLET PO SCH ×2 (01:16→21:14)
[2021-12-30] MEDS: GABAPENTIN 300 MG CAP PO SCH ×4 (01:17→21:07)
[2021-12-30] MEDS: LITHIUM CARBONATE 300 MG TAB PO SCH ×2 (01:17→21:08)
[2021-12-30] MEDS: PANTOprazole 40 MG TAB PO SCH ×3 (01:17→21:06)
[2021-12-30] MEDS: busPIRone 5 MG TAB PO SCH ×4 (01:18→21:06)
[2021-12-30] MEDS: PILOCARPINE HCL 5 MG TABLET PO SCH ×4 (01:19→21:11)
[2021-12-30] MEDS: lamoTRIgine 100 MG TAB PO SCH ×3 (01:19→21:08)
[2021-12-30] MEDS: FLUTICASONE PROPIONATE NA SPR 16 GM BTL SCH ×3 (01:20→21:13)
[2021-12-30] MEDS: ceFAZolin 2000MG 2,000 MG/15 ML SYR IV SCH ×2 (01:22→10:43)
--- NOTE | 2021-12-30 02:49 | Consultation Report ---
DATE OF CONSULT: 12/29/2021. CHIEF COMPLAINT: Status post right shoulder arthroplasty. HISTORY OF PRESENT ILLNESS: This is a 76-year-old female with past medical history significant for hyperlipidemia, hypothyroidism, hypertension, fatty liver, GERD, history of chronic C. difficile colitis, on chronic vancomycin, chronic interstitial cystitis, chronic kidney disease, stage III, postmastectomy lymphedema syndrome, polyneuropathy following chemotherapy, bipolar disorder, mild cognitive impairment, history of breast cancer, obesity, is status post right shoulder arthroplasty, tolerated the procedure okay, resting comfortably. Denies any headache. She has on and off double vision chronically. No earache, no runny nose. Has some sore throat, some cough. No chest pain, no shortness of breath, no nausea, no abdominal pain, feeling somewhat cold, hemodynamically stable. ALLERGIES: CIPROFLOXACIN, METRONIDAZOLE, SULFA ANTIBIOTICS, BACLOFEN, PROTONIX, ZOLPIDEM. PAST MEDICAL HISTORY: As mentioned above. PAST SURGICAL HISTORY: Left total knee arthroplasty, left breast lesion excision, left axillary lymph node dissection for diagnostic metastatic carcinoma, cervical hemilaminectomy, colonoscopy with biopsy, cystoscopy, EGDs, left exploration of nipple, low back surgery, neck surgery, nasal polypectomy, Left face Mohs surgery, removal of eyelid lesion bilaterally, cataract surgeries. MEDICATIONS: The patient is on amlodipine 10 mg p.o. a.m., vitamin C 1 g p.o. b.i.d., aspirin 81 mg p.o. daily, atenolol 50 mg p.o. a.m., buspirone 5mg p.o. t.i.d., calcium carbonate 1 tablet p.o. b.i.d., Celebrex 200 mg p.o. at bedtime, cetirizine 10 mg p.o. a.m., cholestyramine 4 g p.o. b.i.d., vitamin B12 100 mcg p.o. daily, dicyclomine 20 mg p.o. b.i.d., famotidine 40 mg p.o. at bedtime, Flonase 2 sprays intranasal b.i.d., Lasix 20 mg p.o. a.m., gabapentin 300 mg p.o. t.i.d., ipratropium bromide 2 sprays intranasal q.i.d. p.r.n., Lamictal 150 mg p.o. b.i.d., levothyroxine 125 mcg p.o. daily, lithium carbonate 300 mg p.o. at bedtime, Ativan 1 mg p.o. q.6 hours p.r.n., Cozaar 100 mg p.o. a.m., meclizine 50 mg p.o. t.i.d. p.r.n., multivitamins 1 tablet p.o. daily, omega fish oil 1 g p.o. a.m., omeprazole 20 mg p.o. b.i.d., Zofran 8 mg p.o. q.8 hours p.r.n., pilocarpine 5 mg p.o. t.i.d., pravastatin 80 mg p.o. at bedtime, probiotic b.i.d., promethazine 25 mg p.o. q.4 hours p.r.n., tramadol 50-100 mg p.o. p.r.n., trazodone 200 mg p.o. at bedtime, vancomycin 125 mg p.o. daily. FAMILY HISTORY: Significant for mother has dementia, hypertension; father has diabetes. SOCIAL HISTORY: , no smoking, no alcohol, no drug use. REVIEW OF SYSTEMS: As per HPI. Rest of review of systems is negative. PHYSICAL EXAMINATION: GENERAL: The patient is of moderate build, not in acute distress. VITAL SIGNS: Temperature 36., pulse 76, respiratory rate 16, blood pressure 159/71, oxygen 93% on 2 liters. HEENT: Atraumatic. NECK: No JVD or neck masses. CARDIOVASCULAR: S1 and S2 heard. Regular rate and rhythm. No murmur, no gallop. RESPIRATORY SYSTEM: Normal AP diameter. No accessory muscle use. No wheezing, no crackles. ABDOMEN: Soft, bowel sounds present, nontender, no distention. CENTRAL NERVOUS SYSTEM: Alert and oriented. Speech is clear. No facial droop. Obeys simple commands. EXTREMITIES: Status post right shoulder arthroplasty with dressing intact. No edema or erythema seen. LABORATORY DATA: Unavailable. ASSESSMENT AND PLAN: This is a 76-year-old female status post right shoulder arthroplasty. 1. Right shoulder arthroplasty: Management as per Orthopedics. 2. Hypertension: Continue losartan, amlodipine, atenolol. We will monitor the blood pressure. 3. Hypothyroidism: Continue levothyroxine. 4. Gastroesophageal reflux disease: Continue omeprazole. 5. Hyperlipidemia: Continue statin. 6. Clostridium difficile colitis: Chronically on p.o. vancomycin. 7. Bipolar depression: Continue Lamictal and lithium. Follow lithium levels. 8. Anxiety: Continue buspirone. 9. Chronic kidney disease, stage III: We will follow the labs. 10. Deep venous thrombosis prophylaxis and disposition: As per Orthopedics. Job ID: [id number] [facility]
[2021-12-30] MEDS: LEVOTHYROXINE SODIUM 125 MCG TABLET PO SCH (06:03)
--- NOTE | 2021-12-30 06:41 | XRay Report ---
XR shoulder RT min 2V routine HISTORY: 76 years-old Female Post shoulder surgery right shoulder total joint arthroplasty COMPARISON: Chest radiographs 10/19/2021 TECHNIQUE: 2 views of the right shoulder FINDINGS: Right shoulder total joint arthroplasty demonstrates satisfactory alignment. Overlying skin renzo a re present along with expected postoperative soft tissue swelling with deep tissue air. A surgical dr beltran catheter is in place. Distal resection of the right clavicle. No acute fracture or unexpected opaque foreign body. Hypoinflation of the right lung. IMPRESSION: Right shoulder arthroplasty with expected postoperative changes. ACT 112: Negative or not required by law. The above report was generated using voice recognition software. It may contain grammatical, syntax o r spelling errors. Electronically signed by: Patrick Carroll M.D. 12/30/2021 6:39 AM
[2021-12-30] MEDS: ASPIRIN 81 MG ECTAB PO SCH (08:32)
[2021-12-30] MEDS: CYANOCOBALAMIN (B-12) 100 MCG TABLET PO SCH (08:32)
[2021-12-30] MEDS: amLODIPine BESYLATE 5 MG TAB PO SCH (08:37)
[2021-12-30] MEDS: LOSARTAN POTASSIUM 50 MG TAB PO SCH (08:37)
[2021-12-30] MEDS: MULTIVITAMIN TAB PO SCH (08:37)
[2021-12-30] MEDS: FUROSEMIDE 20 MG TAB PO SCH (08:38)
[2021-12-30] MEDS: CETIRIZINE HCL 10 MG TABLET PO SCH (08:38)
[2021-12-30] MEDS: ATENOLOL 50 MG TABLET PO SCH (08:38)
[2021-12-30] MEDS: IPRATROPIUM BROMIDE NASAL SPRAY 0.06% 15ML NAE SCH ×4 (08:39→21:26)
[2021-12-30] MEDS: ADVANCED PROBIOTIC 1250 MG CAPSULE PO SCH (08:42)
[2021-12-30] MEDS ORDERED: PNEUMOCOCCAL POLYSACCHARIDES 25 MCG/0.5 ML VIAL/SYR IM ONE (09:00)
--- NOTE | 2021-12-30 10:33 | Orthopedic Progress Note ---
Date of Service December 30, 2021 Assessment & Plan (1) Primary osteoarthritis, right shoulder: Plan: Postop day 1 status post right total shoulder arthroplasty PT/OT protocols. Nonweightbearing right upper extremity. DVT prophylaxis-aspirin p.o. daily, SCDs Pain management as written. DC planning-patient trying to decide between home health services and outpatient. We will stop back and check on the patient later today to see how she is progressing with her ambulation etc. And see where she is at with her decision for physical therapy when she is discharged. Admission and Anticipated Discharge Date Admission Date: December 29, 2021 Subjective Postop day 1 Patient sitting in chair at bedside. Currently undergoing physical therapy. Discussed with physical therapist. Patient was somewhat unsteady initially with ambulation. She states that she is feeling a little better since she has been up more. Pain is controlled at this time. She has numbness that is residual in her fingers mainly her thumb. No other complaints. Physical Exam Physical Exam: Dressings are clean, dry, and intact. He has good range of motion of her right wrist and fingers. Mild residual numbness in the right thumb. Sling in place. Results & Data ([facility]) Vital Signs (Past 12 Hours) Vital Signs Temp Pulse Pulse Resp BP BP Pulse Ox 12/30/21 08:00 12/30/21 07:13 36.8 C 76 18 104/65 93 12/30/21 05:23 36.7 C 76 16 114/65 93 12/30/21 02:01 36.3 C L 76 20 144/68 H 93 12/30/21 00:58 36.7 C 83 20 152/70 H 93 12/29/21 23:40 36 C L 76 16 159/71 H 93 12/29/21 23:10 36 C L 77 16 161/71 H 93 12/29/21 22:45 36.5 C 78 16 130/71 92 O2 Del Method O2 Flow Rate 12/30/21 08:00 Room Air 12/30/21 07:13 Nasal Cannula 2 12/30/21 05:23 Nasal Cannula 2 12/30/21 02:01 Nasal Cannula 2 12/30/21 00:58 Room Air 12/29/21 23:40 Nasal Cannula 2 12/29/21 23:10 Nasal Cannula 2 12/29/21 22:45 Nasal Cannula 2 Laboratory Results Laboratory Results SARS-CoV-2, RNA, NAAT NEGATIVE (NEGATIVE) 12/29/21 12:51 Blood Type A Positive 12/29/21 12:51 Antibody Screen POSITIVE A 12/29/21 12:51 Antibody Identification Anti-K 12/29/21 12:51 Antibody ID Comment 12/29/21 12:51 Crossmatch See Detail 12/29/21 12:51 Impressions Shoulder X-Ray 12/29/21 20:27 XR shoulder RT min 2V routine HISTORY: 76 years-old Female Post shoulder surgery right shoulder total joint arthroplasty COMPARISON: Chest radiographs 10/19/2021 TECHNIQUE: 2 views of the right shoulder FINDINGS: Right shoulder total joint arthroplasty demonstrates satisfactory alignment. Overlying skin renzo are present along with expected postoperative soft tissue swelling with deep tissue air. A surgical drainage catheter is in place. Distal resection of the right clavicle. No acute fracture or unexpected opaque foreign body. Hypoinflation of the right lung. IMPRESSION: Right shoulder arthroplasty with expected postoperative changes. ACT 112: Negative or not required by law. The above report was generated using voice recognition software. It may contain grammatical, syntax or spelling errors. Electronically signed by: Patrick Carroll M.D. 12/30/2021 6:39 AM
[2021-12-30 11:26] LABS: Basophils # (auto) 0.01 K/uL (0-0.2); Basophils % (auto) 0.1 %; Hematocrit (blood only) 35.2 % (34.1-44.9); Hemoglobin 12.1 g/dl (12.0-16.0); Immature Granulocytes # (auto) 0.08 K/uL (0.00-0.02); Immature Granulocytes % (auto) 0.7 %; Lymphocytes # (auto) 0.99 K/uL (1.2-3.4); Lymphocytes % (auto) 8.4 %; Mean Corpuscular Hgb Conc 34.4 g/dL (32.0-36.0); Mean Corpuscular Volume 87.3 fL (80.0-100.0); Mean Platelet Volume 8.7 fL (9.4-12.3); Monocytes # (auto) 0.85 K/uL (0.24-0.82); Monocytes % (auto) 7.2 %; Neutrophils # (auto) 9.86 K/uL (1.4-6.5); Neutrophils % (auto) 83.6 %; Platelet Count 286 K/uL (130-400); RDW Coefficient of Variation 12.7 % (11.5-14.5); RDW Standard Deviation 40.8 fL (36.4-46.3); Red Blood Count 4.03 M/uL (3.93-5.22); White Blood Count 11.79 K/ul (4.8-10.8)
[2021-12-30 11:55] LABS: BUN Creatinine Ratio 11.4 (10-20); Calcium 9.4 mg/dl (8.5-10.1); Est GFR (Non-African American) 43.2 ml/min; Potassium 4.4 mmol/L (3.5-5.1)
--- NOTE | 2021-12-30 15:10 | Hospitalist Progress Note ---
Date of Service December 30, 2021 Assessment & Plan (1) Status post total shoulder arthroplasty: Plan ASSESSMENT AND PLAN: This is a 76-year-old female status post right shoulder arthroplasty on 12/29 1. Right shoulder arthroplasty: Management as per Orthopedics. 2. Hypertension: Continue losartan, amlodipine, atenolol. BP well controlled 3. Hypothyroidism: Continue levothyroxine. 4. Gastroesophageal reflux disease: Continue omeprazole. 5. Hyperlipidemia: Continue statin. 6. Clostridium difficile colitis: Chronically on p.o. vancomycin. 7. Bipolar depression: Continue Lamictal and lithium. [place] level- 0.7; therapeutic 8. Anxiety: Continue buspirone. 9. Chronic kidney disease, stage III: Cr stable 10. Deep venous thrombosis prophylaxis and disposition: As per Orthopedics. Admission and Anticipated Discharge Date Admission Date: December 29, 2021 Subjective Patient seen and examined at bedside. She is sitting up on the chair; not in any distress. She complains of pain on her right shoulder and is looking forward to physical therapy. Review of Systems Review of Systems: All systems reviewed & are unremarkable except as noted in Subjective Physical Exam Physical Exam: GENERAL: The patient is of moderate build, not in acute distress. HEENT: Atraumatic. NECK: No JVD or neck masses. CARDIOVASCULAR: S1 and S2 heard. Regular rate and rhythm. No murmur, no gallop. RESPIRATORY SYSTEM: Normal AP diameter. No accessory muscle use. No wheezing, no crackles. ABDOMEN: Soft, bowel sounds present, nontender, no distention. CENTRAL NERVOUS SYSTEM: Alert and oriented. Speech is clear. No facial droop. Obeys simple commands. EXTREMITIES: Status post right shoulder arthroplasty with dressing intact. No edema or erythema seen. Results & Data Results & Data ([facility]) Vital Signs (Past 12 Hours) Vital Signs Temp Pulse Resp BP BP Pulse Ox O2 Del Method 12/30/21 11:58 36.6 C 65 18 144/86 H 97 12/30/21 08:00 Room Air 12/30/21 07:13 36.8 C 76 18 104/65 93 Nasal Cannula 12/30/21 05:23 36.7 C 76 16 114/65 93 Nasal Cannula O2 Flow Rate 12/30/21 11:58 12/30/21 08:00 12/30/21 07:13 2 12/30/21 05:23 2 Laboratory Results Laboratory Results WBC 11.79 K/ul (4.8-10.8) H 12/30/21 10:52 RBC 4.03 M/uL (3.93-5.22) 12/30/21 10:52 Hgb 12.1 g/dl (12.0-16.0) 12/30/21 10:52 Hct 35.2 % (34.1-44.9) 12/30/21 10:52 MCV 87.3 fL (80.0-100.0) 12/30/21 10:52 MCH 30.0 pg (25.0-34.0) 12/30/21 10:52 MCHC 34.4 g/dL (32.0-36.0) 12/30/21 10:52 RDW Std Deviation 40.8 fL (36.4-46.3) 12/30/21 10:52 RDW Coeff of [place] 12.7 % (11.5-14.5) 12/30/21 10:52 Plt Count 286 K/uL (130-400) 12/30/21 10:52 MPV 8.7 fL (9.4-12.3) L 12/30/21 10:52 Immature Gran % (Auto) 0.7 % 12/30/21 10:52 Neut % (Auto) 83.6 % 12/30/21 10:52 Lymph % (Auto) 8.4 % 12/30/21 10:52 [place] % (Auto) 7.2 % 12/30/21 10:52 Eos % (Auto) 0.0 % 12/30/21 10:52 Baso % (Auto) 0.1 % 12/30/21 10:52 Neut # (Auto) 9.86 K/uL (1.4-6.5) H 12/30/21 10:52 Lymph # (Auto) 0.99 K/uL (1.2-3.4) L 12/30/21 10:52 [place] # (Auto) 0.85 K/uL (0.24-0.82) H 12/30/21 10:52 Eos # (Auto) 0.00 K/uL (0-0.50) 12/30/21 10:52 Baso # (Auto) 0.01 K/uL (0-0.2) 12/30/21 10:52 Immature Gran # (Auto) 0.08 K/uL (0.00-0.02) H 12/30/21 10:52 Sodium 134 mmol/L (136-145) L 12/30/21 10:52 Potassium 4.4 mmol/L (3.5-5.1) 12/30/21 10:52 Chloride 99 mmol/L (98-107) 12/30/21 10:52 Carbon Dioxide 23 mmol/L (21-32) 12/30/21 10:52 Anion Gap 12 (3-11) H 12/30/21 10:52 BUN 14 mg/dl (6-23) 12/30/21 10:52 Creatinine 1.23 mg/dl (0.6-1.2) H 12/30/21 10:52 Est Cr Clr Drug Dosing 46.0 ml/min 12/30/21 10:52 Est GFR ( Amer) 50.0 ml/min 12/30/21 10:52 Est GFR (Non-Af Amer) 43.2 ml/min 12/30/21 10:52 BUN/Creatinine Ratio 11.4 (10-20) 12/30/21 10:52 Glucose 111 mg/dl (70-99(Fasting)) H 12/30/21 10:52 Calcium 9.4 mg/dl (8.5-10.1) 12/30/21 10:52 [place] 0.7 mmol/L (0.6-1.2) 12/30/21 10:52 SARS-CoV-2, RNA, NAAT NEGATIVE (NEGATIVE) 12/29/21 12:51 Blood Type A Positive 12/29/21 12:51 Antibody Screen POSITIVE A 12/29/21 12:51 Antibody Identification Anti-K 12/29/21 12:51 Antibody ID Comment 12/29/21 12:51 Crossmatch See Detail 12/29/21 12:51 Impressions Shoulder X-Ray 12/29/21 20:27 XR shoulder RT min 2V routine HISTORY: 76 years-old Female Post shoulder surgery right shoulder total joint arthroplasty COMPARISON: Chest radiographs 10/19/2021 TECHNIQUE: 2 views of the right shoulder FINDINGS: Right shoulder total joint arthroplasty demonstrates satisfactory alignment. Overlying skin renzo are present along with expected postoperative soft tissue swelling with deep tissue air. A surgical drainage catheter is in place. Distal resection of the right clavicle. No acute fracture or unexpected opaque foreign body. Hypoinflation of the right lung. IMPRESSION: Right shoulder arthroplasty with expected postoperative changes. ACT 112: Negative or not required by law. The above report was generated using voice recognition software. It may contain grammatical, syntax or spelling errors. Electronically signed by: Patrick Carroll M.D. 12/30/2021 6:39 AM
[2021-12-30] MEDS: oxyCODONE HCL IR 5 MG TAB (IMMEDIATE RELEASE) PO PRN ×2 (15:32→22:50)
[2021-12-31] MEDS: LEVOTHYROXINE SODIUM 125 MCG TABLET PO SCH (06:40)
[2021-12-31] MEDS: ACETAMINOPHEN 500 MG TAB PO SCH ×3 (06:42→21:22)
[2021-12-31] MEDS: oxyCODONE HCL IR 5 MG TAB (IMMEDIATE RELEASE) PO PRN (08:36)
[2021-12-31] MEDS: FLUTICASONE PROPIONATE NA SPR 16 GM BTL SCH ×2 (08:37→21:23)
[2021-12-31] MEDS: CALCIUM 600MG + VIT D 400 IU TAB PO SCH ×2 (08:37→21:23)
[2021-12-31] MEDS: MULTIVITAMIN TAB PO SCH (08:37)
[2021-12-31] MEDS: ATENOLOL 50 MG TABLET PO SCH (08:37)
[2021-12-31] MEDS: IPRATROPIUM BROMIDE NASAL SPRAY 0.06% 15ML NAE SCH ×4 (08:37→21:27)
[2021-12-31] MEDS: CYANOCOBALAMIN (B-12) 100 MCG TABLET PO SCH (08:37)
[2021-12-31] MEDS: CETIRIZINE HCL 10 MG TABLET PO SCH (08:38)
[2021-12-31] MEDS: ADVANCED PROBIOTIC 1250 MG CAPSULE PO SCH (08:38)
[2021-12-31] MEDS: amLODIPine BESYLATE 5 MG TAB PO SCH (08:38)
[2021-12-31] MEDS: ASCORBIC ACID 500 MG TAB PO SCH ×2 (08:38→21:23)
[2021-12-31] MEDS: PANTOprazole 40 MG TAB PO SCH ×2 (08:38→21:23)
[2021-12-31] MEDS: DICYCLOMINE HCL 20 MG TAB PO SCH ×4 (08:38→21:23)
[2021-12-31] MEDS: FUROSEMIDE 20 MG TAB PO SCH (08:38)
[2021-12-31] MEDS: ASPIRIN 81 MG ECTAB PO SCH (08:39)
[2021-12-31] MEDS: lamoTRIgine 100 MG TAB PO SCH ×2 (08:39→21:24)
[2021-12-31] MEDS: GABAPENTIN 300 MG CAP PO SCH ×3 (08:40→21:23)
[2021-12-31] MEDS: LOSARTAN POTASSIUM 50 MG TAB PO SCH (08:40)
[2021-12-31] MEDS: DOCUSATE SODIUM 100 MG CAP PO SCH ×2 (08:41→21:23)
[2021-12-31] MEDS: busPIRone 5 MG TAB PO SCH ×3 (08:41→21:23)
[2021-12-31] MEDS: PILOCARPINE HCL 5 MG TABLET PO SCH ×3 (08:41→21:23)
[2021-12-31] MEDS ORDERED: NEOMYCIN/POLYMYX/HYDROCORT OT SOLN 10 ML BTL OT SCH (09:00)
--- NOTE | 2021-12-31 09:27 | Orthopedic Progress Note ---
Date of Service December 31, 2021 Assessment & Plan (1) Primary osteoarthritis, right shoulder: Plan: Postop day 2 status post right total shoulder arthroplasty PT/OT protocols. Nonweightbearing right upper extremity. DVT prophylaxis-aspirin p.o. daily, SCDs Pain management as written. Pain controlled. DC planning- Plan for OPPT upon dc. Plan for dc to home today Admission and Anticipated Discharge Date Admission Date: December 29, 2021 Subjective POD 2 Pt sitting up in bed wake and alert. She was having a bit more pain this AM. Nursing gave her pain medications that seem to be helping. No new complaints this AM. Wanting to go home today. Pt with some questions about the slling and discussed sling placement again with the patient. Physical Exam Physical Exam: Dressings C/D/I. Hemovac present with minimal drainage. Pt has good wrist/hand/finger ROM. Sensation intact. Cap refill less than [address] Results & Data ([facility]) Vital Signs (Past 12 Hours) Vital Signs Temp Pulse Resp BP Pulse Ox O2 Del Method 12/31/21 07:36 37.2 C 81 18 144/78 H 92 Room Air 12/30/21 21:25 36.7 C 73 16 166/76 H 92
[2021-12-31] MEDS: CHOLESTYRAMINE LIGHT 4 GM PKT PO SCH ×2 (10:04→21:24)
[2021-12-31 10:40] LABS: Hematocrit (blood only) 32.7 % (34.1-44.9); Mean Corpuscular Hemoglobin 30.4 pg (25.0-34.0); Mean Corpuscular Hgb Conc 33.6 g/dL (32.0-36.0); Mean Corpuscular Volume 90.3 fL (80.0-100.0); Mean Platelet Volume 8.8 fL (9.4-12.3); Platelet Count 206 K/uL (130-400); RDW Coefficient of Variation 13.2 % (11.5-14.5); RDW Standard Deviation 43.6 fL (36.4-46.3); Red Blood Count 3.62 M/uL (3.93-5.22); White Blood Count 6.34 K/ul (4.8-10.8)
[2021-12-31 11:04] LABS: Albumin Globulin Ratio 1.8 (0.9-2); Albumin Level 3.7 gm/dl (3.4-5.0); BUN Creatinine Ratio 10.6 (10-20); Bilirubin,Total 0.4 mg/dl (0.2-1.0); Creatinine Clr Calc Pharmacy 50.1 ml/min; Est GFR (African American) 55.4 ml/min; Est GFR (Non-African American) 47.8 ml/min; Globulin 2.1 gm/dl (2.5-4.0); Magnesium 1.7 mg/dl (1.7-2.4); Potassium 3.8 mmol/L (3.5-5.1); Total Protein 5.8 gm/dl (6.0-8.3)
--- NOTE | 2021-12-31 11:27 | CT Scan Report ---
CT head/brain wo con CLINICAL HISTORY: 76 years-old Female with Change in mental status. Acute head injury status post fa ll. Acutely altered mental status TECHNIQUE: Multiple axial CT images of the head were obtained without contrast. A dose lowering tech nique was utilized adhering to the principles of ALARA. CT DOSE: 690.05 mGycm COMPARISON: Head CT and brain MRI 05/21/2020. FINDINGS: No acute intracranial hemorrhage, midline shift, intracranial mass, hydrocephalus, territorial ischem ia or abnormal extra-axial collection. Mild involutional changes. White matter hypodensities suggest chronic microvascular ischemic disease. Chronic lacunar infarcts within the inferior right cerebellar hemisphere. The calvarium is intact. Prior bilateral lens repair. The paranasal sinuses, mastoid air cells, and m iddle ear cavities are clear. IMPRESSION: No acute intracranial abnormality. ACT 112: Negative or not required by law. The above report was generated using voice recognition software. It may contain grammatical, syntax o r spelling errors. Electronically signed by: Patrick Carroll M.D. 12/31/2021 11:26 AM
--- NOTE | 2021-12-31 18:14 | Hospitalist Progress Note ---
Date of Service December 31, 2021 Assessment & Plan (1) Status post total shoulder arthroplasty: Plan Patient is a 76 yr female status post right shoulder arthroplasty on 12/29 Right shoulder arthroplasty: Pain control, DVT prophylaxis per primary team Continue PT OT Fall precautions Incentive spirometry Bowel regimen to prevent constipation Mechanical Fall Mild Head trauma due to Fall Delirium --CT head: No acute intracranial abnormality. Reorient frequently Minimize narcotic use as able Hypertension: Continue losartan, amlodipine, atenolol Hypothyroidism: Continue levothyroxine GERD Continue PPI Hyperlipidemia: Continue statin Clostridium difficile colitis: Chronically on p.o. vancomycin. Planned for fecal transplant Bipolar depression: Anxiety Continue Lamictal and lithium [place] level- 0.7; therapeutic Continue buspirone. CKD III Monitor renal function DVT Px: As per Ortho Admission and Anticipated Discharge Date Admission Date: December 29, 2021 Subjective Patient is seen and examined at bedside Had a fall resulting in mild head trauma while having PT this morning Intermittently confused as per RN Right upper extremity pain is under control Denies any chest pain, shortness of breath, dizziness, nausea, abdominal pain Also reports mild headache secondary to fall Review of Systems Review of Systems: All systems reviewed & are unremarkable except as noted in Subjective Physical Exam Physical Exam: Physical Exam: Vitals signs as noted above General Appearance:Obese, no apparent distress Head: normocephalic, Atraumatic Eyes: normal inspection, EOMI Neck: supple, Trachea midline Respiratory/Chest: Normal breath sounds, CTA, No accessory muscle use Cardiovascular: S1, S2, No murmur Abdomen/GI:Soft, Non tender, Bowel sounds present Extremities/Musculoskeletal:normal inspection, 1+ B/L LE edema, RUE in sling Neurologic/Psych:AAOX3, grossly no focal neurological deficits Skin: normal color, warm Results & Data Results & Data ([facility]) Vital Signs (Past 12 Hours) Vital Signs Temp Pulse Resp BP Pulse Ox O2 Del Method 12/31/21 14:39 37.2 C 72 18 129/71 93 Room Air 12/31/21 09:58 37.2 C 78 20 142/76 H 92 Room Air 12/31/21 07:36 37.2 C 81 18 144/78 H 92 Room Air Laboratory Results Short CBC 12/31/21 Range/Units 10:19 WBC 6.34 (4.8-10.8) K/ul Hgb 11.0 L (12.0-16.0) g/dl Hct 32.7 L (34.1-44.9) % Plt Count 206 (130-400) K/uL BMP 12/31/21 10:19 Sodium 139 Potassium 3.8 Chloride 106 Carbon Dioxide 25 BUN 12 Creatinine 1.13 Glucose 111 H Calcium 9.0 Liver Function 12/31/21 Range/Units 10:19 Total Bilirubin 0.4 (0.2-1.0) mg/dl AST 15 (13-39) U/L ALT 8 (7-52) U/L Alkaline Phosphatase 48 (34-104) U/L Albumin 3.7 (3.4-5.0) gm/dl
[2021-12-31] MEDS: traMADol HCL 50 MG TABLET PO PRN (18:32)
[2021-12-31] MEDS: PRAVASTATIN SOD 40 MG TAB PO SCH (21:22)
[2021-12-31] MEDS: SENNA 8.6 MG TAB PO SCH (21:22)
[2021-12-31] MEDS: LITHIUM CARBONATE 300 MG TAB PO SCH (21:23)
[2021-12-31] MEDS: FAMOTIDINE 40 MG TABLET PO SCH (21:23)
[2021-12-31] MEDS: traZODone HCL 100 MG TAB PO SCH (21:23)
[2022-01-01] MEDS: traMADol HCL 50 MG TABLET PO PRN (02:03)
[2022-01-01] MEDS: LEVOTHYROXINE SODIUM 125 MCG TABLET PO SCH (06:20)
[2022-01-01] MEDS: ACETAMINOPHEN 500 MG TAB PO SCH (06:20)
[2022-01-01 07:29] VITALS: BP 113/67; TEMP 98.6
[2022-01-01] MEDS: IPRATROPIUM BROMIDE NASAL SPRAY 0.06% 15ML NAE SCH ×2 (07:38→12:06)
[2022-01-01] MEDS: FLUTICASONE PROPIONATE NA SPR 16 GM BTL SCH (07:38)
[2022-01-01] MEDS: busPIRone 5 MG TAB PO SCH (07:39)
[2022-01-01] MEDS: DOCUSATE SODIUM 100 MG CAP PO SCH (07:39)
[2022-01-01] MEDS: ASCORBIC ACID 500 MG TAB PO SCH (07:39)
[2022-01-01] MEDS: CALCIUM 600MG + VIT D 400 IU TAB PO SCH (07:39)
[2022-01-01] MEDS: GABAPENTIN 300 MG CAP PO SCH (07:40)
[2022-01-01] MEDS: PANTOprazole 40 MG TAB PO SCH (07:40)
[2022-01-01] MEDS: lamoTRIgine 100 MG TAB PO SCH (07:40)
[2022-01-01] MEDS: DICYCLOMINE HCL 20 MG TAB PO SCH ×2 (07:40→12:06)
[2022-01-01] MEDS: PILOCARPINE HCL 5 MG TABLET PO SCH (07:40)
[2022-01-01] MEDS: CHOLESTYRAMINE LIGHT 4 GM PKT PO SCH (07:42)
[2022-01-01] MEDS: MULTIVITAMIN TAB PO SCH (07:42)
[2022-01-01] MEDS: ASPIRIN 81 MG ECTAB PO SCH (07:49)
[2022-01-01] MEDS: FUROSEMIDE 20 MG TAB PO SCH (07:49)
[2022-01-01] MEDS: ADVANCED PROBIOTIC 1250 MG CAPSULE PO SCH (07:49)
[2022-01-01] MEDS: CYANOCOBALAMIN (B-12) 100 MCG TABLET PO SCH (07:50)
[2022-01-01] MEDS: amLODIPine BESYLATE 5 MG TAB PO SCH (07:50)
[2022-01-01] MEDS: ATENOLOL 50 MG TABLET PO SCH (07:50)
[2022-01-01] MEDS: CETIRIZINE HCL 10 MG TABLET PO SCH (07:50)
[2022-01-01] MEDS: LOSARTAN POTASSIUM 50 MG TAB PO SCH (07:50)
--- NOTE | 2022-01-01 10:47 | Orthopedic Progress Note ---
Date of Service January 01, 2022 Assessment & Plan (1) Primary osteoarthritis, right shoulder: Plan: Postop day 3 status post right total shoulder arthroplasty Pt feeling better today with change of pain medication. PT/OT protocols. Nonweightbearing right upper extremity. DVT prophylaxis-aspirin p.o. daily, SCDs Pain management as written. Switched to Tramadol with good results. DC planning- PT feels pt needs further work on her ambulation etc. Recommending [facility]. CM aware and auth has been sent. Plan for dc to [facility]. Admission and Anticipated Discharge Date Admission Date: December 29, 2021 Subjective POD [address] Mills this AM. She and her feel she is mentating much better since switching to Tramadol for pain control. Pain control is good currently. No new complaints. Pt is amenable to going to [facility] facility. Physical Exam Physical Exam: Dressing have been changed. Hemovac has been removed. Current dressing C/D/I. [place] intact. Cap refill < 2 seconds. Results & Data ([facility]) Vital Signs (Past 12 Hours) Vital Signs Temp Pulse Resp BP Pulse Ox O2 Del Method 01/01/22 07:28 37 C 68 16 113/67 90 Room Air
[2022-01-01 11:11] VITALS: PULSE 76
[2022-01-01 12:15] VITALS: O2SAT 92
--- NOTE | 2022-01-01 15:57 | Hospitalist Progress Note ---
Date of Service January 01, 2022 Assessment & Plan (1) Status post total shoulder arthroplasty: Plan Patient is a 76 yr female status post right shoulder arthroplasty on 12/29 Right shoulder arthroplasty: Pain control, DVT prophylaxis per primary team Continue PT OT Fall precautions Incentive spirometry Bowel regimen to prevent constipation Continue wound care Mechanical Fall Mild Head trauma due to Fall Delirium --CT head: No acute intracranial abnormality. Reorient frequently Minimize narcotic use as able Delirium resolved Hypertension: Continue losartan, amlodipine, atenolol Hypothyroidism: Continue levothyroxine GERD Continue PPI Hyperlipidemia: Continue statin Clostridium difficile colitis: Chronically on p.o. vancomycin. Planned for fecal transplant Bipolar depression: Anxiety Continue Lamictal and lithium [place] level- 0.7; therapeutic Continue buspirone. CKD III Monitor renal function DVT Px: Disposition As per Ortho Admission and Anticipated Discharge Date Admission Date: December 29, 2021 Subjective Patient is seen and examined at bedside Doing better today Headache resolved Right shoulder pain is controlled Denies any chest pain, shortness of breath, dizziness, nausea, abdominal pain No other complaints Review of Systems Review of Systems: All systems reviewed & are unremarkable except as noted in Subjective Physical Exam Physical Exam: Physical Exam: Vitals signs as noted above General Appearance:Obese, no apparent distress Head: normocephalic, Atraumatic Eyes: normal inspection, EOMI Neck: supple, Trachea midline Respiratory/Chest: Normal breath sounds, CTA, No accessory muscle use Cardiovascular: S1, S2, No murmur Abdomen/GI:Soft, Non tender, Bowel sounds present Extremities/Musculoskeletal:normal inspection, 1+ B/L LE edema, RUE in sling Neurologic/Psych:AAOX3, grossly no focal neurological deficits Skin: normal color, warm Results & Data Results & Data ([facility]) Vital Signs (Past 12 Hours) Vital Signs Temp Pulse Pulse Resp BP Pulse Ox O2 Del Method 01/01/22 12:15 92 Room Air 01/01/22 11:10 37 C 76 68 16 113/67 90 01/01/22 07:28 37 C 68 16 113/67 90 Room Air
--- NOTE | 2022-01-03 18:16 | Discharge Summary ---
Date of Service January 03, 2022 Admission HPI Per Admitting Provider 76-year-old female with past medical history significant for high cholesterol, anxiety, TIA, CKD who presents with longstanding right shoulder pain. Patient has end-stage osteoarthritis. She has failed conservative measures. Pain interfering with her daily activity. She would like to proceed with surgical intervention. Patient denies headaches, sweats, fevers, chills, double vision, blurred vision, cough, sore throat, dysphagia, chest pain, sob, wheezing, n/v/d/c, numbness, tingling, fatigue, urinary symptoms, mood disorders. ROS positive for right shoulder pain and stiffness. Admission Exam Per Admitting Provider Constitutional: well developed and well nourished; no acute distress Eyes: PERRL, conjunctivae normal, anicteric sclerae ENMT: external ear and nose normal, oropharynx normal Neck: trachea midline, no thyromegaly Respiratory: normal respiratory effort, lungs clear to auscultation Cardiovascular: RRR, no murmur, no edema Musculoskeletal: Right shoulder:Active painful range of motion with crepitation. Tenderness anterolateral acromion and anterior glenoid. She has pain with strength testing. Crepitation with range of motion. Positive impingement signs. Skin: no rashes, warm and dry Neurologic: patellar DTR's 2+ bilat, sensation intact Psychiatric: A+Ox3, euthymic affect Principal Diagnosis Right shoulder osteoarthritis Discharge Exam Dressing have been changed. Hemovac has been removed. Current dressing C/D/I. NV intact. Cap refill < 2 seconds. Constitutional well developed and well nourished; no acute distress Discharge Data Allergies Allergy/AdvReac Type Severity Reaction Status Date / Time ciprofloxacin Allergy Intermediate HIVES Verified 12/29/21 13:17 metronidazole Allergy Intermediate hives Verified 12/29/21 13:17 Sulfa (Sulfonamide Allergy Intermediate HIVES Verified 12/29/21 13:17 Antibiotics) baclofen AdvReac Severe NEURO Verified 12/29/21 13:17 SYMPTOMS pantoprazole AdvReac Mild migraines Verified 12/29/21 13:17 zolpidem AdvReac Mild delusions Verified 12/29/21 13:17 Consultations 12/29/21 05:00 Consult Hospitalist Routine Procedures Performed Operation Date: 10/22/21 10:15 <No data on this case meets the specified criteria> Operation Date: 12/29/21 14:45 Actual Procedures p Right Total Shoulder Arthroplasty, Subacromial Decompression, Distal Clavicle Excision(Right) - Andrea Mills MD Ordered Studies 12/29/21 15:19 US point of care ultrasound Routine 12/31/21 10:04 CT head/brain wo con Urgent Hospital Course (1) Primary osteoarthritis, right shoulder: Postop day 3 status post right total shoulder arthroplasty Pt feeling better today with change of pain medication. PT/OT protocols. Nonweightbearing right upper extremity. DVT prophylaxis-aspirin p.o. daily, SCDs Pain management as written. Switched to Tramadol with good results. DC planning- PT feels pt needs further work on her ambulation etc. Recommending [facility]. CM aware and auth has been sent. Plan for dc to [facility]. Postop day 2 status post right total shoulder arthroplasty PT/OT protocols. Nonweightbearing right upper extremity. DVT prophylaxis-aspirin p.o. daily, SCDs Pain management as written. Pain controlled. DC planning- Plan for OPPT upon dc. Plan for dc to home today Addendum December 31, 2021 09:57\\ ATSP just now. Pt was going through PT session. Physical Therapist noted patients MS was slowly changing. While attempting stairs, the patient, per PT, "just crumbled" and began going to ground. She was able to keep the patient from completely falling by supporting her. However, she did witness the patient hit her head on the stairs they were using. Pt now with headache and a bit of pain where therapist supported her during the episode. No other complaints. Shoulder remains stable. Discussed with Dr Zafar. New labs will be drawn, CT of head ordered. Hold DC for now. Postop day 1 status post right total shoulder arthroplasty PT/OT protocols. Nonweightbearing right upper extremity. DVT prophylaxis-aspirin p.o. daily, SCDs Pain management as written. DC planning-patient trying to decide between home health services and outpatient. We will stop back and check on the patient later today to see how she is progressing with her ambulation etc. And see where she is at with her decision for physical therapy when she is discharged. Addendum December 30, 2021 12:47 Labs reviewed. Discussed dc with patient/. Also spoke with Dr. Mills. Pt's surgery ended late yesterday evening and there are concerns for pain control. (h/o chronic pain issues) Block still functioning but patient with mild discomfort in the operative shoulder presently. Continue pain management. Plan for dc to home tomorrow. Lab Results 12/29/21 12/29/21 12/30/21 Range/Units 12:51 12:51 10:52 WBC (4.8-10.8) K/ul RBC (3.93-5.22) M/uL Hgb (12.0-16.0) g/dl Hct (34.1-44.9) % MCV (80.0-100.0) fL MCH (25.0-34.0) pg MCHC (32.0-36.0) g/dL RDW Std Deviation (36.4-46.3) fL RDW Coeff of Byron (11.5-14.5) % Plt Count (130-400) K/uL MPV (9.4-12.3) fL Immature Gran % (Auto) % Neut % (Auto) % Lymph % (Auto) % [place] % (Auto) % Eos % (Auto) % Baso % (Auto) % Neut # (Auto) (1.4-6.5) K/uL Lymph # (Auto) (1.2-3.4) K/uL [place] # (Auto) (0.24-0.82) K/uL Eos # (Auto) (0-0.50) K/uL Baso # (Auto) (0-0.2) K/uL Immature Gran # (Auto) (0.00-0.02) K/uL Sodium (136-145) mmol/L Potassium (3.5-5.1) mmol/L Chloride (98-107) mmol/L Carbon Dioxide (21-32) mmol/L Anion Gap (3-11) BUN (6-23) mg/dl Creatinine (0.6-1.2) mg/dl Est Cr Clr Drug Dosing ml/min Est GFR ( Amer) ml/min Est GFR (Non-Af Amer) ml/min BUN/Creatinine Ratio (10-20) Glucose (70-99(Fasting)) mg/dl Calcium (8.5-10.1) mg/dl Magnesium (1.7-2.4) mg/dl Total Bilirubin (0.2-1.0) mg/dl AST (13-39) U/L ALT (7-52) U/L Alkaline Phosphatase (34-104) U/L Total Protein (6.0-8.3) gm/dl Albumin (3.4-5.0) gm/dl Globulin (2.5-4.0) gm/dl Albumin/Globulin Ratio (0.9-2) [place] 0.7 (0.6-1.2) mmol/L SARS-CoV-2, RNA, NAAT NEGATIVE (NEGATIVE) Blood Type A Positive Antibody Screen POSITIVE A Antibody Identification Anti-K Antibody ID Comment Crossmatch See Detail 12/30/21 12/30/21 12/31/21 Range/Units 10:52 10:52 10:19 WBC 11.79 H 6.34 (4.8-10.8) K/ul RBC 4.03 3.62 L (3.93-5.22) M/uL Hgb 12.1 11.0 L (12.0-16.0) g/dl Hct 35.2 32.7 L (34.1-44.9) % MCV 87.3 90.3 (80.0-100.0) fL MCH 30.0 30.4 (25.0-34.0) pg MCHC 34.4 33.6 (32.0-36.0) g/dL RDW Std Deviation 40.8 43.6 (36.4-46.3) fL RDW Coeff of Byron 12.7 13.2 (11.5-14.5) % Plt Count 286 206 (130-400) K/uL MPV 8.7 L 8.8 L (9.4-12.3) fL Immature Gran % (Auto) 0.7 % Neut % (Auto) 83.6 % Lymph % (Auto) 8.4 % [place] % (Auto) 7.2 % Eos % (Auto) 0.0 % Baso % (Auto) 0.1 % Neut # (Auto) 9.86 H (1.4-6.5) K/uL Lymph # (Auto) 0.99 L (1.2-3.4) K/uL [place] # (Auto) 0.85 H (0.24-0.82) K/uL Eos # (Auto) 0.00 (0-0.50) K/uL Baso # (Auto) 0.01 (0-0.2) K/uL Immature Gran # (Auto) 0.08 H (0.00-0.02) K/uL Sodium 134 L (136-145) mmol/L Potassium 4.4 (3.5-5.1) mmol/L Chloride 99 (98-107) mmol/L Carbon Dioxide 23 (21-32) mmol/L Anion Gap 12 H (3-11) BUN 14 (6-23) mg/dl Creatinine 1.23 H (0.6-1.2) mg/dl Est Cr Clr Drug Dosing 46.0 ml/min Est GFR ( Amer) 50.0 ml/min Est GFR (Non-Af Amer) 43.2 ml/min BUN/Creatinine Ratio 11.4 (10-20) Glucose 111 H (70-99(Fasting)) mg/dl Calcium 9.4 (8.5-10.1) mg/dl Magnesium (1.7-2.4) mg/dl Total Bilirubin (0.2-1.0) mg/dl AST (13-39) U/L ALT (7-52) U/L Alkaline Phosphatase (34-104) U/L Total Protein (6.0-8.3) gm/dl Albumin (3.4-5.0) gm/dl Globulin (2.5-4.0) gm/dl Albumin/Globulin Ratio (0.9-2) [place] (0.6-1.2) mmol/L SARS-CoV-2, RNA, NAAT (NEGATIVE) Blood Type Antibody Screen Antibody Identification Antibody ID Comment Crossmatch 12/31/21 Range/Units 10:19 WBC (4.8-10.8) K/ul RBC (3.93-5.22) M/uL Hgb (12.0-16.0) g/dl Hct (34.1-44.9) % MCV (80.0-100.0) fL MCH (25.0-34.0) pg MCHC (32.0-36.0) g/dL RDW Std Deviation (36.4-46.3) fL RDW Coeff of Byron (11.5-14.5) % Plt Count (130-400) K/uL MPV (9.4-12.3) fL Immature Gran % (Auto) % Neut % (Auto) % Lymph % (Auto) % [place] % (Auto) % Eos % (Auto) % Baso % (Auto) % Neut # (Auto) (1.4-6.5) K/uL Lymph # (Auto) (1.2-3.4) K/uL [place] # (Auto) (0.24-0.82) K/uL Eos # (Auto) (0-0.50) K/uL Baso # (Auto) (0-0.2) K/uL Immature Gran # (Auto) (0.00-0.02) K/uL Sodium 139 (136-145) mmol/L Potassium 3.8 (3.5-5.1) mmol/L Chloride 106 (98-107) mmol/L Carbon Dioxide 25 (21-32) mmol/L Anion Gap 8 (3-11) BUN 12 (6-23) mg/dl Creatinine 1.13 (0.6-1.2) mg/dl Est Cr Clr Drug Dosing 50.1 ml/min Est GFR ( Amer) 55.4 ml/min Est GFR (Non-Af Amer) 47.8 ml/min BUN/Creatinine Ratio 10.6 (10-20) Glucose 111 H (70-99(Fasting)) mg/dl Calcium 9.0 (8.5-10.1) mg/dl Magnesium 1.7 (1.7-2.4) mg/dl Total Bilirubin 0.4 (0.2-1.0) mg/dl AST 15 (13-39) U/L ALT 8 (7-52) U/L Alkaline Phosphatase 48 (34-104) U/L Total Protein 5.8 L (6.0-8.3) gm/dl Albumin 3.7 (3.4-5.0) gm/dl Globulin 2.1 L (2.5-4.0) gm/dl Albumin/Globulin Ratio 1.8 (0.9-2) [place] (0.6-1.2) mmol/L SARS-CoV-2, RNA, NAAT (NEGATIVE) Blood Type Antibody Screen Antibody Identification Antibody ID Comment Crossmatch Total Time Total Time Spent Total Time Spent (In Minutes): 20 Discharge Plan Discharge Items Patient Disposition: Transfer Inpatient Rehab Fac Reason For Visit: Right Shoulder Osteoarthritis, Right Shoulder Impi Discharge Diagnosis: Right shoulder osteoarthritis Activity: Per Instructions section Weightbearing: Right non-weightbearing Non-emergency contact: Surgeon Call non-emergency contact if: you have any medication questions, your pain is not controlled, your temperature is above 101.5, your wound has increased redness and your wound has increased drainage Follow-up/Referrals: Andrea Mills MD [Surgeon] - (Follow-up with Dr. Mills in 2 weeks from the day of your surgery for your first postoperative visit.) Shakeel Benitez DO [Primary Care Provider] - Diet: Regular Addtl Attending Provider Instructions: ACTIVITY RECOMMENDATIONS: SELF CARE INSTRUCTIONS AFTER TOTAL SHOULDER ARTHROPLASTY A. You may do daily exercises as taught in physical therapy while in hospital. No lifting with the operative arm. Please schedule your outpatient physical therapy appointment to begin within 2-3 days after leaving the hospital. Specific restrictions will be written on your physical therapy prescription that is provided to you. B. You are to wear your sling/immobilizer at all times EXCEPT when performing your daily exercises, participating in physical therapy and for hygiene pu rposes. C. You may perform dry, daily dressing changes. Please keep your incision covered. You may shower 48 hours after surgery. Do not apply soap or any ointment/lotions directly over incision. Do not soak incision in bath tub/swimming pool. D. You may use ice as needed to operative shoulder. SPECIAL CARE INSTRUCTIONS: MEDICATION INSTRUCTIONS: *It is recommended you take Aspirin 325mg daily for four weeks post-op. VERY IMPORTANT TO READ AND REVIEW A. There are a few signs you need to watch for after you are home. Call [facility] at [phone] if you experience any of the followin. Increased severe shoulder pain. Some pain is expected especially when you exercise. 2. Increased swelling in you shoulder or arm; pain or swelling in either upper extremity. 3. Any fluid drainage from the incision. 4. Shortness of breath or chest pain. B. Please call [facility] at [phone] if you have any questions or concerns about your operation or recovery. C. Call your physician if: 1. Temperature is greater than 101 degrees (F). 2. Pain is not relieved by prescribed pain medications. 3. Increase drainage or redness from incision. 4. Unanswered questions or concerns. FOLLOW UP VISIT: Please call [facility] at [phone] to schedule a follow up appointment with Dr. Mills or his PA in 12-14 days from your surgery date. Stand-Alone Forms: My [facility], Smoking Cessation Skilled Items Patient informed of condition?: Yes DNR: No Discharge Level of Care: Acute rehab Communicable Disease: No Discharge Prognosis: Stable Lines: None Urinary Catheter: No Medications and DC Order Prescriptions: New acetaminophen [Tylenol Extra Strength] 500 mg Tablet 1,000 mg PO Q8 14 Days Qty: 84 0RF tramadol 50 mg Tablet 50 - 100 mg PO Q6H MDD 8 PRN (Reason: pain) Qty: 30 0RF Continued buspirone 5 mg tablet 5 mg PO TID aspirin [Juanjo Low Dose Aspirin] 81 mg Tablet,Delayed Release (Dr/Ec) 81 mg PO QAM Qty: 0 levothyroxine 125 mcg Tablet 125 mcg PO QAM Qty: 0 pravastatin 80 mg Tablet 80 mg PO HS Qty: 0 atenolol 50 mg Tablet 50 mg PO QAM Qty: 0 [id number] 3.5-10,000-1 mg/mL-unit/mL-% Solution 1 drp OTIC (EAR) 2XWK Qty: 0 Rx Instructions: we/sa multivitamin [Multiple Vitamins] Tablet 1 tab PO QPM Qty: 0 cranberry extract 300 mg Tablet 300 mg PO BID Qty: 0 gabapentin 300 mg Capsule 300 mg PO TID Qty: 0 omeprazole magnesium 20 mg Capsule,Delayed Release(Dr/Ec) 20 mg PO BID Qty: 0 ascorbic acid (vitamin C) 1,000 mg Tablet 1 g PO BID Qty: 0 fluticasone propionate 50 mcg/actuation [place],Suspension 2 spray INTRANASAL AMPM Qty: 0 calcium carbonate-vitamin D3 [Calcium 500 + D] 500 mg(1,250mg) -200 unit Tablet 1 tab PO BID Qty: 0 Probiotic 3 billion cell Capsule 3,000 mmu cells PO BID Qty: 0 lamotrigine [Lamictal] 150 mg Tablet 150 mg PO BID Qty: 0 lorazepam 1 mg Tablet 1 mg PO Q6H PRN (Reason: Anxiety) Qty: 0 dicyclomine 20 mg Tablet 20 mg PO QID Qty: 0 ipratropium bromide 0.03 % [place],Non-Aerosol 2 spray INTRANASAL QID Qty: 0 Zyrtec 10 mg capsule 10 mg PO QAM promethazine 25 mg tablet 25 mg PO Q4H PRN (Reason: Nausea) famotidine 40 mg Tablet 40 mg PO HS vancomycin [Vancocin] 125 mg capsule 125 mg PO QAM trazodone 100 mg tablet 200 mg PO HS turmeric root extract 500 mg Capsule 500 mg PO BID amlodipine 10 mg tablet 10 mg PO QAM losartan [Cozaar] 50 mg tablet 100 mg PO QAM pilocarpine HCl [Salagen (pilocarpine)] 5 mg tablet 5 mg PO TID cholestyramine-aspartame [Cholestyramine Light] 4 gram Powder In Packet 4 g PO BID@1000,2200 Qty: 60 0RF ondansetron HCl 8 mg Tablet 8 mg PO Q8 PRN (Reason: Nausea) meclizine 25 mg Tablet 50 mg PO TID PRN (Reason: Dizziness) furosemide 20 mg Tablet 20 mg PO QAM simethicone [Gas Relief 80 (simethicone)] 80 mg Tablet,Chewable 80 mg PO BID PRN (Reason: Stomach Upset) Soothe XP 1-4.5 % Drops 2 drp ophthalmic (eye) BID celecoxib [Celebrex] 200 mg Capsule 200 mg PO HS cyanocobalamin (vitamin B-12) [Vitamin B-12] 100 mcg Tablet 100 mcg PO DAILY lithium carbonate 300 mg Tablet 300 mg PO HS Discontinued tramadol 50 mg Tablet 50 - 100 mg PO Q4 PRN (Reason: Pain) Qty: 0 Label Comments: NEEDED FOR PAIN. omega-3 fatty acids 1,000 mg capsule 1,000 mg PO QAM Discharge Orders: Discharge Order (Routine); Ordered 01/01/22 Ordered By: Roge Herrera/Other Patient Handouts: Falls Prevent Adjust Living Space Admission Data Admit Date/Time: 12/29/21 20:27 Attending Provider: Andrea Mills Admit Provider: Andrea Mills Primary Care Provider: Shakeel Benitez Other Providers: Leobardo Vargas ; Randall Zafar ; [facility] Other Interventions: Discharge Summary Assessment (RN) Last Done: 01/01/22 11:10
== END 2022-01-01 13:10 | DRG 483 ==
LOC: ASU 12:38 → 3W 20:27
DX: Z98.1 Arthrodesis status; Z79.51 Long term (current) use of inhaled steroids; Z88.3 Allergy status to other anti-infective agents; Z86.73 Personal history of transient ischemic attack (TIA), and cerebral infarction without residual deficits; Z88.2 Allergy status to sulfonamides; T45.1X5S Adverse effect of antineoplastic and immunosuppressive drugs, sequela; S09.90XA Unspecified injury of head, initial encounter; E66.9 Obesity, unspecified; M25.811 Other specified joint disorders, right shoulder; M65.811 Other synovitis and tenosynovitis, right shoulder; Z79.890 Hormone replacement therapy; G62.0 Drug-induced polyneuropathy; Z79.899 Other long term (current) drug therapy; Z82.49 Family history of ischemic heart disease and other diseases of the circulatory system; J45.909 Unspecified asthma, uncomplicated; M24.111 Other articular cartilage disorders, right shoulder; N18.30 Chronic kidney disease, stage 3 unspecified; R41.0 Disorientation, unspecified; I12.9 Hypertensive chronic kidney disease with stage 1 through stage 4 chronic kidney disease, or unspecified chronic kidney disease; Z79.2 Long term (current) use of antibiotics; I97.2 Postmastectomy lymphedema syndrome; Y92.238 Other place in hospital as the place of occurrence of the external cause; Z68.30 Body mass index [BMI] 30.0-30.9, adult; M19.011 Primary osteoarthritis, right shoulder; Z85.3 Personal history of malignant neoplasm of breast; E03.9 Hypothyroidism, unspecified; Z88.1 Allergy status to other antibiotic agents; Y99.8 Other external cause status; I34.1 Nonrheumatic mitral (valve) prolapse; Y93.39 Activity, other involving climbing, rappelling and jumping off; Z96.653 Presence of artificial knee joint, bilateral; W18.39XA Other fall on same level, initial encounter; Z88.5 Allergy status to narcotic agent; Z88.8 Allergy status to other drugs, medicaments and biological substances; Z79.82 Long term (current) use of aspirin; E78.5 Hyperlipidemia, unspecified; Z86.16 Personal history of COVID-19; Z86.19 Personal history of other infectious and parasitic diseases; F32.A Depression, unspecified; F41.9 Anxiety disorder, unspecified; K21.9 Gastro-esophageal reflux disease without esophagitis; N30.10 Interstitial cystitis (chronic) without hematuria; F31.9 Bipolar disorder, unspecified

== ENCOUNTER 2023-06-13 22:38 | Inpatient (IN) ==
--- OUTSIDE RECORDS SUMMARY | 2023-06-13 22:46 | External Medical Summary ---
Author Name Unknown Address Unknown Organization K01[place] [place] [address] [place] [id number] Laboratory Report Ordering Provider Test Date Status WILLIE ANDRES 05/06/2023 12:47:47 Final Observation Date Value Abnormality Reference (Units ) Status Color of Urine by Auto 05/06/2023 12:47:47 Colorless Colorless, Light Yellow, Yellow, Dark Yellow Final Clarity, Urine 05/06/2023 12:47:47 Slightly Cloudy Abnormal Clear Final Glucose [Mass/volume] in Urine by Automated test strip 05/06/2023 12:47:47 Negative Negative (mg/dL) Final Bilirubin.total [Presence] in Urine by Automated test strip 05/06/2023 12:47:47 Negative Negative Final Ketones [Mass/volume] in Urine by Automated test strip 05/06/2023 12:47:47 Negative Negative (mg/dL) Final Specific gravity, Urine 05/06/2023 12:47:47 1.006 1.003-1.030 Final Hemoglobin [Presence] in Urine by Automated test strip 05/06/2023 12:47:47 Negative Negative Final pH, Urine 05/06/2023 12:47:47 7.0 5.0-7.5 (Units) Final Protein [Mass/volume] in Urine by Automated test strip 05/06/2023 12:47:47 Negative Negative (mg/dL) Final Urobilinogen [Mass/volume] in Urine by Automated test strip 05/06/2023 12:47:47 Normal Normal (mg/dL) Final Nitrite [Presence] in Urine by Automated test strip 05/06/2023 12:47:47 Negative Negative Final Leukocyte esterase [Presence] in Urine by Automated test strip 05/06/2023 12:47:47 Large Abnormal Negative Final RBC, Urine 05/06/2023 12:47:47 6-9 Abnormal 0-2 (/HPF) Final WBC, Urine 05/06/2023 12:47:47 50+ Abnormal 0-2 (/HPF) Final Bacteria [#/area] in Urine sediment by Microscopy high power field 05/06/2023 12:47:47 26-50 Abnormal 0-25 (/HPF) Final Epithelial cells.renal [#/area] in Urine sediment by Microscopy high power field 05/06/2023 12:47:47 1-4 Abnormal None (/HPF) Final Leukocyte clumps [#/area] in Urine sediment by Microscopy high power field 05/06/2023 12:47:47 Present Abnormal None (/HPF) Final [place] [facility] [place] [facility] [address] [facility] [id number]
--- OUTSIDE RECORDS SUMMARY | 2023-06-13 22:46 | External Medical Summary | Summary of Care ---
Author Name Unknown Organization [facility] Address [address] [facility] [place] [address] Phone [phone] Care Team Providers Care Physical Therapy Assistant Name Role Phone Dav Hargrove MD Primary Care Provider [phone] Reason for Visit * Reason Comments Follow Up Right peroneal injec tion Encounter Details Date Type Department Care Team (Late st Contact Info) Description 05/11/2023 10:00 AM EST Office Visit Orthopaedics [facility] [address] [place] [address] Ren Lyn, [address] [place] [address] Peroneal tenosynovitis* Allergies Active Allergy Reactions Criticality Noted Date Comments Baclofen Neuro complications (Please comment) 06/12/2014 Speech issues, ect Other reaction(s): unknown Ciprofloxacin Rash 07/16/2006 +pain in feet +"almost " Other reaction(s): unknown Metronidazole Hcl Hives Medium 06/19/2009 Nitrofurantoin 11/10/2022 Rash - pt denies Metronidazole 07/09/2020 Other reaction(s): hives Pantoprazole Sodium Sesquihydrate Other (Please comment) Low 10/03/2009 headache Sulfa Antibiotics Hives 11/03/2005 Zolpidem 07/09/2020 Other reaction(s): delusional documented as of this encounter (statuses as of 05/11/2023) Medications Medication Sig Dispensed Refills Start Date End Date Status ASPIRIN 81 MG PO TABS one by mouth daily 0 Active Cyanocobalamin (B-12) 100 MCG TABS Take 1 Tab by mouth daily. In AM 0 Active Multiple Vitamins-Minerals (MULTIVITAL-M) Tablet Take 1 Tablet by mouth every afternoon. 0 Active Calcium Carb-Cholecalcifer ol (CALCIUM + D3) 600-200 MG-UNIT per tablet Take 1 Tablet by mouth in the morning. 0 Active Cranberry 300 MG TABS Take 1 Tab by mouth 2 times a day. 0 Active Probiotic Product (PROBIOTIC & ACIDOPHILUS EX ST) Capsule Take 1 Cap by mouth 2 times a day. 0 Active lamoTRIgine (LAMICTAL) 150 MG Tablet Take 1 Tablet by mouth in the morning and 1 Tablet before bedtime. 0 05/04/2017 Active Artificial Tear Solution (SOOTHE XP) SOLN Instill 2 Drops into both eyes 2 times a day. 0 Active Ascorbic Acid (VITAMIN C) 1000 MG Tablet Take 1 Tablet by mouth in the morning and 1 Tablet before bedtime. 0 Active cetirizine (ZYRTEC) 10 MG Tablet Take 1 Tablet by mouth in the morning. 0 Active lithium carbonate ER (LITHOBID ER) 450 MG TBCR Take 1 Tablet by mouth at bedtime. 0 04/11/2019 Active traZODone (DESYREL) 100 MG Tablet Take 2 Tablets by mouth at bedtime. 0 04/28/2019 Active Simethicone 80 MG Oral Tablet Chewable Take 1 Tablet by mouth 2 times a day as needed for Gas. 0 Active LORazepam (ATIVAN) 1 MG Tablet Take 1 Tablet by mouth every 6 hours as needed for Anxiety. 0 Active promethazine (PHENERGAN) 25 MG Tablet Take 1 Tablet by mouth every 4 hours as needed for Nausea. 0 Active meclizine (ANTIVERT) 25 MG Tablet TAKE 2 TABLETS BY MOUTH 3 TIMES A DAY NEEDED FOR DIZZINESS 180 Tab 0 10/23/2019 Active ondansetron (ZOFRAN) 4 MG Tablet Take 1 Tab by mouth every 12 hours as needed for Nausea. 20 Tab 0 12/04/2019 Active Additional Information Patient taking differently: 8 [id number] PRN, Nausea, Reported on 02/08/2023 [facility]. Devices Refurbish current custom molded inserts - hindfoot varus post (lateral) 1 Each 0 01/25/2020 Active Methocarbamol 500 MG Oral Tablet (Robamol) Take 1 Tablet by mouth in the morning and 1 Tablet at noon and 1 Tablet in the evening and 1 Tablet before bedtime. 0 Active Fluticasone Propionate 50 MCG/ACT Nasal Suspension (Flonase) USE 2 SPRAYS IN BOTH NOSTRILS TWICE DAILY 96 g 4 04/29/2022 Active Dicyclomine HCl 20 MG Oral Tablet (Bentyl) TAKE 1 TABLET BY MOUTH 4 TIMES DAILY NEEDED FOR CRAMPING AND FOR ABDOMINAL PAIN 360 Tablet 3 05/04/2022 Active traMADol HCl 50 MG Oral Tablet (Ultram)Indication s:Lymphedema of left upper extremity Take 2 Tablets by mouth every 6 hours as needed for Pain, Severe. 120 Tablet 2 07/13/2022 Active tiZANidine HCl 2 MG Oral Tablet (Zanaflex)Indicati ons:as needed Take by mouth 3 times a day. 0 07/17/2022 Active Ipratropium [place] 0.03 % Nasal Solution (Atrovent) USE 2 SPRAYS IN BOTH NOSTRILS 4 TIMES DAILY 150 mL 3 09/01/2022 Active Fluocinonide 0.05 % External Gel Apply topically to affected area 2 times a day. 0 Active Gabapentin 100 MG Oral Capsule (Neurontin) Take 1 Capsule by mouth in the morning and 1 Capsule at noon and 1 Capsule before bedtime. With 300 mg tabs. 270 Capsule 1 09/10/2022 Active busPIRone HCl 7.5 MG Oral Tablet (Buspar)Indication s:in am 0 09/25/2022 Active Omeprazole 20 MG Oral Capsule Delayed Release (PriLOSEC)Indicati ons:Gastroesophage al reflux disease with esophagitis without hemorrhage Take 1 Capsule by mouth in the morning and 1 Capsule in the evening. 180 Capsule 3 11/05/2022 Active Sucralfate 1 GM Oral Tablet (Carafate) Take 1 Tablet by mouth 4 times a day before meals and at bedtime. half an hour before meals and at bedtime 120 Tablet 5 01/04/2023 Active Atenolol 50 MG Oral Tablet (Tenormin)Indicati ons:HTN, goal below 140/90 TAKE 1 TABLET BY MOUTH ONCE DAILY 90 Tablet 2 01/20/2023 Active Pravastatin Sodium 80 MG Oral TabletIndications: Dyslipidemia, goal LDL below 130 TAKE 1 TABLET BY MOUTH ONCE DAILY 90 Tablet 2 01/20/2023 Active Furosemide 20 MG Oral Tablet (Lasix)Indications :Diastolic dysfunction TAKE 1 TABLET BY MOUTH DAILY 90 Tablet 3 01/20/2023 Active amLODIPine Besylate 10 MG Oral Tablet (Norvasc)Indicatio ns:Chronic kidney disease with symptom management only, stage 3 (moderate) (HCC),HTN, goal below 130/80 TAKE 1 TABLET BY MOUTH DAILY 90 Tablet 3 01/20/2023 Active Pilocarpine HCl 5 MG Oral Tablet (Salagen) TAKE 1 TABLET BY MOUTH IN THE MORNING AND 1 TABLET BY MOUTH AT NOON AND 1 TABLET BY MOUTH BEFORE BEDTIME 270 Tablet 3 01/20/2023 Active Famotidine 40 MG Oral Tablet (Pepcid)Indication s:Gastroesophageal reflux disease TAKE 1 TABLET BY MOUTH AT BEDTIME 90 Tablet 3 01/20/2023 Active Levothyroxine Sodium 125 MCG Oral Tablet (Levoxyl)Indicatio ns:Hypothyroidism TAKE 1 TABLET BY MOUTH DAILY WITH A GLASS OF WATER 90 Tablet 3 01/20/2023 Active Losartan Potassium 100 MG Oral Tablet (Cozaar)Indication s:HTN, goal below 140/90,Hypertensiv e kidney disease with stage 3a chronic kidney disease (HCC) TAKE 1 TABLET BY MOUTH DAILY 90 Tablet 3 01/20/2023 Active Gabapentin 300 MG Oral Capsule (Neurontin) TAKE 1 CAPSULE BY MOUTH 3 TIMES DAILY 270 Capsule 3 01/25/2023 Active Restasis 0.05 % Ophthalmic Emulsion Instill 1 Drop into both eyes in the morning and 1 Drop before bedtime. 0 02/19/2023 Active oxyCODONE-Acetamin ophen 5-325 MG Oral Tablet (Percocet) Take 1 Tablet by mouth every 4 hours as needed for Pain, Moderate. 20 Tablet 0 03/09/2023 Active Magic Swizzle (Lidocaine-Benadry l-Maalox) oral solution Swish and spit 15 mL in the morning and 15 mL before bedtime. 120 mL 1 03/11/2023 Active Estradiol 0.1 MG/GM Vaginal Cream (Estrace) Administer 1 g into the vagina once a day on Wednesday, Wednesday, and Wednesday only. as directed. 42.5 g 3 03/29/2023 Active Cephalexin 500 MG Oral Capsule (Keflex)Indication s:Suspected UTI Take 1 Capsule by mouth in the morning and 1 Capsule at noon and 1 Capsule in the evening and 1 Capsule before bedtime. Do all this for 7 days. 28 Capsule 0 05/07/2023 05/14/2023 Active Hospital, Clinic, or Other Facility Administered Medication Ordered Dose Route Frequency Start Date End Date Status lidocaine 1% 1 mL - triamcinolone acetonide 40 mg/mL 1 mL inj 2 mLIndications:Peroneal tenosynovitis 2 mL IJ ONCE 05/11/2023 05/11/2023 Active documented as of this encounter (statuses as of 05/11/2023) Active Problems Problem Noted Date Diagnosed Date Moderate mitral regurgitation 07/20/2022 Overweight (BMI 25.0-29.9) 01/13/2022 Polyneuropathy following chemotherapy 08/29/2021 Gastroesophageal reflux dise ase with esophagitis without hemorrhage 05/27/2020 Hypothyroidism due to acquired atrophy of thyroi d 10/25/2017 Post-mastectomy lymphedema syndrome 08/30/2017 History of breast cancer 01/26/2017 Bipolar depression 11/01/2015 MCI (mild cognitive impairment) 11/05/2014 Dyslipidemia 02/09/2014 DDD (degenerative disc disease), cervical 2010 Chronic interstitial cystitis 02/13/2008 Fatty liver 09/19/2002 Overview: steatohepatitis HTN, goal below 130/80 04/29/2001 documented as of this encounter (statuses as of 05/11/2023) Resolved Problems Problem Noted Date Diagnosed Date Resolved Date Malignant neoplasm of left female breast 08/29/2021 10/29/2021 Obesity, Class I, BMI 30.0-3 4.9 (see actual BMI) 08/04/2021 01/13/2022 Loss of appetite 06/25/2021 08/04/2021 Malaise and fatigue 06/25/2021 08/05/19 22 Chronic kidney disease, stage 3a 08/20/2020 05/14/2021 Overview: Per CKD protocol C. difficile colitis 05/27/2020 023 Overview: Chronic pending fecal transplant Hypertensive kidney disease with stage 3a chronic kidney disease 02/19/2020 07/20/2022 Overview: Per CKD protocol Secondary malignant neoplasm of axillary lymph nodes 02/13/2020 05/27/2020 Chemical pneumonitis 02/13/2020 022 Hypertensive kidney disease with stage 3 chronic kidney disease 01/15/2019 02/13/2020 Hypertensive kidney disease with chronic kidney disease stage III 01/12/2019 02/22/2020 Overview: Per CKD protocol Kidney disease, chronic, sta ge III (GFR 30-59 ml/min) 11/21/2018 01/25/2019 Overview: Per CKD protocol Bacterial nephritis 03/28/2018 05/27/19 21 Chronic cough 06/22/2017 05/27/2020 Esophageal dysphagia 05/14/2017 021 History of recurrent UTIs 07/09/2016 Rhinitis, nonallergic 06/03/20162020 Nasal turbinate hypertrophy 06/03/2016 05/27/2020 History of nasal polyp 06/03/201608/19 Dysplastic nevus of lower extremity 09/28/2015 10/25/2017 Vitamin B 12 deficiency 05/29/201405/13 Edema 09/12/2013 05/29/2014 Leg pain 09/12/2013 09/18/2013 Cellulitis of leg 09/12/2013 09/18/2013 Spasm of muscle 09/12/2013 09/18/2013 Medical home patient encounter 03/30/2013 05/01/2022 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 02/21/2013 05/27/2020 Breast cancer 02/13/2013 10/05/2016 Hearing loss 01/26/2013 01/28/2017 Subjective tinnitus 01/21/2013 01/29/20 17 Acid reflux disease 09/13/2012 05/27/19 21 Chronic otitis externa 07/14/201001/28 Chronic rhinitis 07/14/2010 06/03/2016 Deviated nasal septum 07/14/20102020 Other specified forms of hearing loss 07/14/2010 08/19/2016 Temporomandibular joint diso rders, unspecified 07/14/2010 01/28/2017 HTN, goal to be determined 02/13/2008 1 04/17/2008 Overview: Per HTN Taxonomy Dysuria 11/08/2007 02/13/2008 Electrolyte and fluid disorder 11/03/2007 08/19/2011 ANGIOEDEMA 06/04/2006 04/17/2010 Idiopathic urticaria 06/04/2006 017 NONALLERGIC RHINITIS 06/04/2006 008 Nasal polyp 06/04/2006 11/01/2006 ADVANCE DIRECTIVE INFORMATION 08/31/2005 05/27/2020 Overview: Information offered-patient declined Hypothyroidism 06/04/2004 11/03/2005 Cervical spondylosis 03/13/2002 006 Displacement of cervical int ervertebral disc without myelopathy 03/08/2002 04/20/2023 Overview: L C2-3,C3-4,C4-5; Rc4-5,C5-6, post subluxation,mild,C3-4 Menopause 04/29/2001 08/19/2016 Major depressive disorder 04/29/2001 Overview: ICD-10 update of inactive term BENIGN NEOPLASM LG BOWEL 08/15/1999 Dyspnea and respiratory abnormality 08/15/1999 11/03/2005 Overview: ICD-10 update of inactive term documented as of this encounter (statuses as of 05/11/2023) Immunizations Name Administration Dates Next Due COVID-19 mRNA, LNP-s, No Pre serve, 2-Dose Series (Shopline) 07/02/2020,06/06/2020 Pneumococcal Conjugate Vacc, 13 Valent (Prevnar) 05/13/2015 Pneumococcal Polysaccharide PPV23 (Pneumovax) 08/12/2012 Season Influenza, Quad, PF, Adjuvanted, 65+ Yrs, IM (FLUAD) 12/21/2019 Seasonal Influenza, PF, 6 M & above, IM , (FluLaval or Fluzone) 01/18/2018 Seasonal Influenza, Quadriva lent Hd (Fluzone Hd) 02/08/2023,12/12/2021 Seasonal Influenza, Quadriva lent, No Preserve, IM 12/25/2016,12/12/2015 Seasonal Influenza, Split, I IV3, With Preserve, Inj 12/18/2014,02/09/2014,02/13/2013,12/16,01/16/2011,01/06/2010,12/21/2008 ,02/10/2008,02/03/2006 Seasonal Influenza, Trivalen t, Adjuvanted, 65+ yrs 03/11/2021,12/16/2018 TD - Tetanus/Diptheria (ADULT) 08/26/2005 TDAP (age 10 and older)(Boostrix) 11/13/2013 Zoster Vaccine Recombinant (Shingrix) 04/19/2019 ,11/09/2018 documented as of this encounter Social History Tobacco Use Types Packs/Day Years Used Date Smoking Tobacco: Never Smokeless Tobacco: Never Comments:no passive smoke Alcohol Use Standard Drinks/Week Comments No 0 (1 standard drink = 0.6 oz pur e alcohol) PHQ-2 Answer Date Recorded PHQ Adult Total Score 0 12/12/2021 Hunger Vital Sign Answer Date Recorded Within the past 12 months, y ou worried that your food would run out before you got the money to buy more. Never true 12/13/19 22 Within the past 12 months, t he food you bought just didn't last and you didn't have money to get more. Never true 12/12/2021 Sex and Gender Information Value Date Recorded Sex Assigned at Female 05/11/2019 8:37 AM EST Gender Identity Female 05/11/2019 8:37 AM EST Sexual Orientation Straight 05/11/2019 8: 37 AM EST Job Start Date Occupation Industry Not on file Not on file Not on file documented as of this encounter Progress Notes * Ren Lyn, - 05/11/2023 10:00 AM EST Teodoro Dyer [id number] INJECTION NOTE Teodoro Dyer is a 77 year old female who presents to [facility] for Right peroneal tendon sheath injection Request by Dr Dsouza Assessment and Plan: f/u my chart update [address] Dsouza, wa PRN, see procedure note, handout on PRP also provided. Follow up with Dr. Dsouza in 10-12 weeks. 1) Peroneal tenosynovitis (Primary) - lidocaine 1% 1 mL - triamcinolone acetonide 40 mg/mL 1 mL inj 2 mL - POINT OF CARE US MAJOR JOINT INJECTION, ORTHO Ren Lyn DO Primary Care Sports Medicine [facility] [place] [address] Procedure note (ankle injection), right : peroneal tendon Time out: Prior to injection, a time out was called to confirm the administration of appropriate medicine, patient name, procedure and confirm to the best of our ability and knowledge the presence of any necessary risks and benefits. Patient verbalizes understanding. Ultrasound utilized to guide injection Ultrasound required due to: high risk for complications without ultrasound guideance (risk for neurovascular damage) Sterile techinique applied. Skin sterilized with chlorhexidine and alcohol swab. Ankle injected using 1.5 inch, 25 gauge needle. Injected with lidocaine 1% 1 mL - triamcinolone acetonide 40 mg/mL 1 mL inj 2 mL Patient tolerated procedure with no significant bleeding or adverse reaction. Patient instructed to call or return to clinic for fever or warmth and redness at injection site for potential infection. Patient also advised as to potential for steroid flare reaction including increased pain and redness at injection site which should be treated with ice and resolve within 24 hours. Ren yLn DO documented in this encounter Nursing Notes * Mell Alves MED ASSIST - 05/11/2023 9:58 AM EST Follow up Patient Follow up: Ankle Side: Right Date of last visit: Improvement since last office visit: 0 percent. Prior Treatment: Injection Here for Test Results: No Goals for this appointment: inj documented in this encounter Plan of Treatment Upcoming Encounters Date Type Department Care Team (Late st Contact Info) Description 05/11/2023 10:30 AM EST Imaging Radiology [place] [address] [facility] [place] [place] [address] Arrived 05/20/2023 11:00 AM EST Office Visit Family [facility] [address] [facility] [place] [address] Dariana Fish CRNP [address] [place] [address] 06/16/2023 2:55 PM EST Office Visit Urogynecology [facility] [address] [facility] [place] [address] Joaquin Johns MD [address] [facility] [place] [address] [facility] Cherelle santiago [facility] [address] [facility] [place] [address] 07/20/2023 2:40 PM EDT Office Visit Otolaryngology [facility] [address] [facility] [place] [address] Idalia Lora PA-C [facility] [address] 07/20/2023 5:20 PM EDT Office Visit Family Practice [facility] [address] [facility] [place] [address] Dav [facility]rove [facility] [address] [facility] [address] 07/28/2023 3:00 PM EDT Office Visit Urology, [facility] [address] [facility] [place] [address] Cristian Griffin MD [address] [place] [address] [place] [address] 08/11/2023 9:00 AM EDT Office Visit Podiatry [facility] [address] [facility] [place] [address] Nuha Dsouza, DPM [address] [facility] [place] [address] 08/31/2023 1:30 PM EDT Office Visit Allergy/Immunology [facility] [place] [address] [facility] [place], [place] [address] Yordan Jones MD [address] [facility] [place] [address] 10/22/2023 10:00 AM EDT Office Visit Nephrology, [facility] [address] [facility] [place] [facility] [phone] Bonnie Trevizo MD [address] [facility] [place] [address] Scheduled Procedures Name Priority Associated Diagnoses Date/Ti me COLONOSCOPY FLEXIBLE PROXIMAL DIAGNOSTIC Recall History of colon polyps Health Maintenance Due Date Last Done Comments COVID-19 Vaccine ( season) 2022 08/10/2020, 07/02/2020, 06/06/2020 Depression Screening 12/12/2022 12/12/2021 DTaP,Tdap,and Td Vaccines (2 - Td or Tdap) 11/14/2023 11/13/2013, 08/26/2005, 08/26/2005 GFR 04/21/2024 04/21/2023, 01/12, 01/15/2023, Additional history exists TSH 04/21/2024 04/21/2023, 08/2022, 06/03/2021, Additional history exists COLONOSCOPY-EVERY 3 YRS AGES 18-100 09/01/2025 09/01/2022, 09/01/2022, 09/13/2019, Additional history exists Albumin/Creatinine Ratio 01/15/2026 01/15/2023, 06/11 DXA Scan 12/10/2026 12/11/2019, 08/10, 08/23/2012 Pneumococcal Vaccine: 65+ Years Completed 05/13/2015, 08/12/2012 Zoster Vaccines Completed 04/19/2019, 11/09/2018 COLONOSCOPY-EVERY 2 YRS AGES 18-100 Discontinued 09/01/2022, 09/01/2022, 09/13/2019, Additional history exists Influenza Vaccine (FLU shot) Completed 02/08/2023, 12/12/2021, 03/11/2021, Additional history exists GARDASIL-HPV IMMUNIZATION SERIES Aged Out No longer eligible based on patient's age to complete this topic Hepatitis B Aged Out No longer eligi ble based on patient's age to complete this topic MENINGOCOCCAL (MENACTRA/MENVEO) Aged Out No longer eligible based on patient's age to complete this topic documented as of this encounter Medical Devices Implanted Type Area Postbed Stitcher Device Identifier Shelf Expiration Date Model / Serial / Lot Sureclip 16mm 235cm - [id number] Implanted:Qty: 2 on 12/10/2022 by Junior Us MD at ENDOSCOPY [facility] Stomach MICRO TECH ENDOSCOPY 10/13/2023 [id number] / / [id number] documented as of this encounter Procedures Procedure Name Priority Date/Time Associated Diagnosis Comments POINT OF CARE US MAJOR JOINT INJECTION, ORTHO Routine 05/11/2023 9:58 AM EST Peroneal tenosynovitis documented in this encounter Results * POINT OF CARE US MAJOR JOINT INJECTION, ORTHO (05/11/2023 9:58 AM EST) Anatomical Region Laterality Modality Musculoskeletal Radiographic Shannan ging 05/11/2023 9:58 AM EST Narrative 05/11/2023 10:10 AM EST Patient Name: TEODORO DYER : 1945 (77y) Female Performing Provider: Ren Lyn (digitally signed May 11, 2023 10:10 EST) Attending: Ren Lyn (digitally signed May 11, 2023 10:10 EST) [Impression] : Procedure note (ankle injection), right : peroneal tendon Time out:Prior to injection, a time out was called to confirm the administration of appropriate medicine, patient name, procedure and confirm to the best of our ability and knowledge the presence of any necessary risks and benefits. Patient verbalizes understanding. Ultrasound utilized to guide injectionUltrasound required due to: high risk for complications without ultrasound guideance (risk for neurovascular damage) Sterile techinique applied. Skin sterilized with chlorhexidine and alcohol swab. Ankle injected using 1.5 inch, 25 gauge needle. Injected with lidocaine 1% 1 mL - triamcinolone acetonide 40 mg/mL 1 mL inj 2 mL Patient tolerated procedure with no significant bleeding or adverse reaction. Patient instructed to call or return to clinic for fever or warmth and redness at injection site for potential infection. Patient also advised as to potential for steroid flare reaction including increased pain and redness at injection site which should be treated with ice and resolve within 24 hours. Ren Lyn DO Procedure Note Ren Lyn DO - 05/11/2023 Patient Name: TEODORO DYER : 1945 (77y) Female Performing Provider: Ren Lyn (digitally signed May 11, 2023 10:10EST) Attending: Ren Lyn (digitally signed May 11, 2023 10:10 EST) [Impression] : Procedure note (ankle injection), right : peroneal tendonTime out:Prior to injection, a time out was called to confirm theadministration of appropriate medicine, patient name, procedure andconfirm to the best of our ability and knowledge the presence of anynecessary risks and benefits. Patient verbalizes understanding.Ultrasound utilized to guide injectionUltrasound required due to: highrisk for complications without ultrasound guideance (risk forneurovascular damage) Sterile techinique applied. Skin sterilized withchlorhexidine and alcohol swab. Ankle injected using 1.5 inch, 25 gaugeneedle. Injected with lidocaine 1% 1 mL - triamcinolone acetonide 40mg/mL 1 mL inj 2 mL Patient tolerated procedure with no significantbleeding or adverse reaction. Patient instructed to call or return toclinic for fever or warmth and redness at injection site for potentialinfection. Patient also advised as to potential for steroid flarereaction including increased pain and redness at injection site which should be treated withice and resolve within 24 hours. Ren Lyn DO Ren Lyn DO RAD ULTRASOUND documented in this encounter Visit Diagnoses Diagnosis Peroneal tenosynovitis- Primary Other synovitis and tenosynovitis documented in this encounter Advance Directives Latest Code Status on File Code Status Date Activated Date Inactivated Comments Full Code 03/09/2023 9:42 AM 03/09/2023 4:08 PM Thi s order reflects the patients wishes and were consensually agreed upon. Question Answer Comments Discussion of Advance Directives occurred with: Patient Does the patient have a Living Will? No Does the patient have Health Care Power of County Attorney? No Code Status History Code Status Date Activated Date Inactivated Comments Full Code 03/09/2023 7:16 AM 03/09/2023 9:42 AM Thi s order reflects the patients wishes and were consensually agreed upon. Question Answer Comments Discussion of Advance Directives occurred with: Not Discussed due to patient's condition Care Teams Physical Therapy Assistant Relationship Specialty Start Date End Date Dav Hargrove MD [address] [place] [address] PCP - General Family Medicine 05/28/20 documented as of this encounter
--- OUTSIDE RECORDS SUMMARY | 2023-06-13 22:46 | External Medical Summary | Summary of Care ---
Author Name Unknown Organization [facility] Address [address] [place] [address] Phone [phone] Care Team Providers Care Supervisor Boilermaking Shop Name Role Phone Dav Hargrove MD Primary Care Provider [phone] [phone] Reason for Visit * Reason Comments Follow Up Pt here for 6 month follow up Encounter Details Date Type Department Care Team (Latest Contact Info) Description 04/21/2023 8:40 AM EST Office Visit [facility] [address] [place] [address] Dav Hargrove MD [address] [place] [address] Hypothyroidism due to acquired atrophy of thyroid*; HTN, goal below 130/80; Fatty liver; Chronic interstitial cystitis; Post-mastectomy lymphedema syndrome; DDD (degenerative disc disease), cervical; Polyneuropathy following chemotherapy ; Overweight (BMI 25.0-29.9); MCI (mild cognitive impairment); History of breast cancer; Bipolar depression (HCC); Moderate mitral regurgitation Allergies Active Allergy Reactions Criticality Noted Date [...] as of this encounter (statuses as of 04/21/2023) Medications Medication Sig Dispensed Refills Start Date [...] Active Additional Information Patient taking differently: 8 [id number] PRN, Nausea, [place]/20[place] [facility] [place] Devices Refurbish current custom molded inserts - [...] times a day. 0 07/17/2022 Active Ipratropium [place] 0.03 % Nasal Solution (Atrovent) USE 2 [...] as directed. 42.5 g 3 03/29/2023 Active documented as of this encounter (statuses as of 04/21/2023) Active Problems Problem Noted Date Diagnosed Date [...] as of this encounter (statuses as of 04/21/2023) Resolved Problems Problem Noted Date Diagnosed Date [...] 08/19/2011 ANGIOEDEMA 06/04/2006 04/17/2010 Idiopathic urticaria 06/04/2006 10/19/2 017 NONALLERGIC RHINITIS 06/04/2006 008 Nasal polyp [...] as of this encounter (statuses as of 04/21/2023) Immunizations Name Administration Dates Next Due COVID-19 mRNA, LNP-s, No Pre serve, 2-Dose Series ([employer]) 07/02/2020,06/06/2020 Pneumococcal Conjugate Vacc, 13 Valent (Prevnar) [...] on file documented as of this encounter Last Filed Vital Signs Vital Sign Reading Time Taken Comments Blood Pressure 138/82 04/21/2023 8:47 AM EST Pulse 72 04/21/2023 8:47 AM EST Temperature 36 C (96.8 F) 04/21/2023 8:47 AM EST Respiratory Rate 18 04/21/2023 8:47 AM EST Oxygen Saturation - - Inhaled Oxygen Concentration - - Weight 83.9 kg (185 lb) 04/21/2023 8:47 AM EST Height 170.2 cm (5' 7") 04/21/2023 8:47 AM EST Body Mass Index 28.98 04/21/2023 8:47 AM EST documented in this encounter Progress Notes * Dav Hargrove MD - 04/21/2023 10:05 PM EST SUBJECTIVE: Mary Dyer is a 77 year old female. Chief Complaint Patient presents with Follow Up Pt here for 6 month follow up HPI: Mary is a very pleasant 77 year old female accompanied by her Edward here for a 6 month follow up. She has several chronic health issues that are all currently relatively stable. It seems that since her lap darlin at the end of February that most of her chronic GI issues have resolved. Stevan longer has chronic c diff and the fecal transplant that had been tentatively planned for severalyears is now not needed. She tends to get fatigued easily but this has been chronic. She is likely going to need some more time to fully recover from her surgery. Whenever she ends up requiring hospitalization it seems to take her longer and longer to recover. Fortunately she is very stable from a c ardiopulmonary perspective. Patient Active Problem List Diagnosis Code HTN, goal below 130/80 I10 Fatty liver K76.0 Chronic interstitial cystitis N30.10 DDD (degenerative disc disease), cervical M50.30 Dyslipidemia E78.5 MCI (mild cognitive impairment) G31.84 Bipolar depression (HCC) F31.9 History of breast cancer Z85.3 Post-mastectomy lymphedema syndrome I97.2 Hypothyroidism due to acquired atrophy of thyroid E03.4 Gastroesophageal reflux disease with esophagitis without hemorrhage K21.00 Polyneuropathy following chemotherapy G62.0, T45.1X5A Overweight (BMI 25.0-29.9) E66.3 Moderate mitral regurgitation I34.0 Current Outpatient Medications Medication Sig Dispense Refill ASPIRIN 81 MG PO TABS one by mouth daily Cyanocobalamin (B-12) 100 MCG TABS Take 1 Tab by mouth daily. In AM Multiple Vitamins-Minerals (MULTIVITAL-M) Tablet Take 1 Tablet by mouth every afternoon. Calcium Carb-Cholecalciferol (CALCIUM + D3) 600-200 MG-UNIT per tablet Take 1 Tablet by mouth in the morning. Cranberry 300 MG TABS Take 1 Tab by mouth 2 times a day. Probiotic Product (PROBIOTIC & ACIDOPHILUS EX ST) Capsule Take 1 Cap by mouth 2 times a day. lamoTRIgine (LAMICTAL) 150 MG Tablet Take 1 Tablet by mouth in the morning and 1 Tablet before bedtime. Ascorbic Acid (VITAMIN C) 1000 MG Tablet Take 1 Tablet by mouth in the morning and 1 Tablet before bedtime. cetirizine (ZYRTEC) 10 MG Tablet Take 1 Tablet by mouth in the morning. lithium carbonate ER (LITHOBID ER) 450 MG TBCR Take 1 Tablet by mouth at bedtime. traZODone (DESYREL) 100 MG Tablet Take 2 Tablets by mouth at bedtime. Simethicone 80 MG Oral Tablet Chewable Take 1 Tablet by mouth 2 times a day as needed for Gas. LORazepam (ATIVAN) 1 MG Tablet Take 1 Tablet by mouth every 6 hours as needed for Anxiety. promethazine (PHENERGAN) 25 MG Tablet Take 1 Tablet by mouth every 4 hours as needed for Nausea. meclizine (ANTIVERT) 25 MG Tablet TAKE 2 TABLETS BY MOUTH 3 TIMES A DAY NEEDED FOR DIZZINESS 180Tab 0 ondansetron (ZOFRAN) 4 MG Tablet Take 1 Tab by mouth every 12 hours as needed for Nausea. (Patient taking differently: Take 2 Tablets by mouth every 8 hours as needed for Nausea.) 20 Tab 0 Methocarbamol 500 MG Oral Tablet (Robamol) Take 1 Tablet by mouth in the morning and 1 Tablet at noon and 1 Tablet in the evening and 1 Tablet before bedtime. Fluticasone Propionate 50 MCG/ACT Nasal Suspension (Flonase) USE 2 SPRAYS IN BOTH NOSTRILS TWICE DAILY 96 g 4 Dicyclomine HCl 20 MG Oral Tablet (Bentyl) TAKE 1 TABLET BY MOUTH 4 TIMES DAILY NEEDED FOR CRAMPING AND FOR ABDOMINAL PAIN 360 Tablet 3 traMADol HCl 50 MG Oral Tablet (Ultram) Take 2 Tablets by mouth every 6 hours as needed for Pain, Severe. 120 Tablet 2 tiZANidine HCl 2 MG Oral Tablet (Zanaflex) Take by mouth 3 times a day. Ipratropium [place] 0.03 % Nasal Solution (Atrovent) USE 2 SPRAYS IN BOTH NOSTRILS 4 TIMES DAILY 150 mL 3 Gabapentin 100 MG Oral Capsule (Neurontin) Take 1 Capsule by mouth in the morning and 1 Capsule at noon and 1 Capsule before bedtime. With 300 mg tabs. 270 Capsule 1 busPIRone HCl 7.5 MG Oral Tablet (Buspar) Omeprazole 20 MG Oral Capsule Delayed Release (PriLOSEC) Take 1 Capsule by mouth in the morning and1 Capsule in the evening. 180 Capsule 3 Sucralfate 1 GM Oral Tablet (Carafate) Take 1 Tablet by mouth 4 times a day before meals and at bedtime. half an hour before meals and at bedtime 120 Tablet 5 Atenolol 50 MG Oral Tablet (Tenormin) TAKE 1 TABLET BY MOUTH ONCE DAILY 90 Tablet 2 Pravastatin Sodium 80 MG Oral Tablet TAKE 1 TABLET BY MOUTH ONCE DAILY 90 Tablet 2 Furosemide 20 MG Oral Tablet (Lasix) TAKE 1 TABLET BY MOUTH DAILY 90 Tablet 3 amLODIPine Besylate 10 MG Oral Tablet (Norvasc) TAKE 1 TABLET BY MOUTH DAILY 90 Tablet 3 Pilocarpine HCl 5 MG Oral Tablet (Salagen) TAKE 1 TABLET BY MOUTH IN THE MORNING AND 1 TABLET BY MOUTH AT NOON AND 1 TABLET BY MOUTH BEFORE BEDTIME 270 Tablet 3 Famotidine 40 MG Oral Tablet (Pepcid) TAKE 1 TABLET BY MOUTH AT BEDTIME 90 Tablet 3 Levothyroxine Sodium 125 MCG Oral Tablet (Levoxyl) TAKE 1 TABLET BY MOUTH DAILY WITH A GLASS OF WATER 90 Tablet 3 Losartan Potassium 100 MG Oral Tablet (Cozaar) TAKE 1 TABLET BY MOUTH DAILY 90 Tablet 3 Gabapentin 300 MG Oral Capsule (Neurontin) TAKE 1 CAPSULE BY MOUTH 3 TIMES DAILY 270 Capsule 3 Restasis 0.05 % Ophthalmic Emulsion Instill 1 Drop into both eyes in the morning and 1 Drop before bedtime. oxyCODONE-Acetaminophen 5-325 MG Oral Tablet (Percocet) Take 1 Tablet by mouth every 4 hours as needed for Pain, Moderate. 20 Tablet 0 Magic Swizzle (Uoijkkgly-Niokrsak-Lnbopd) oral solution Swish and spit 15 mL in the morning and 15 mL before bedtime. 120 mL 1 Estradiol 0.1 MG/GM Vaginal Cream (Estrace) Administer 1 g into the vagina once a day on Wednesday, Wednesday, and Wednesday only. as directed. 42.5 g 3 Artificial Tear Solution (SOOTHE XP) SOLN Instill 2 Drops into both eyes 2 times a day. Misc. Devices Refurbish current custom molded inserts - hindfoot varus post (lateral) 1 Each 0 Fluocinonide 0.05 % External Gel Apply topically to affected area 2 times a day. (Patient not taking: Reported on 02/08/2023) No current facility-administered medications for this visit. Allergy: Review of patient's allergies indicates: Allergen Reactions Flagyl [Metronidazole Hcl] Hives Baclofen Neuro complications (Please comment) Speech issues, ect Other reaction(s): unknown Ciprofloxacin Rash +pain in feet +"almost " Other reaction(s): unknown Macrobid [Nitrofurantoin] Rash - pt denies Metronidazole Other reaction(s): hives Sulfa Antibiotics Hives Zolpidem Other reaction(s): delusional Protonix [Pantoprazole Sodium Sesquihydrate] Other (Please comment) headache OBJECTIVE: BP 138/82 | Pulse 72 | Temp 36 C (96.8 F) (Tympanic) | Resp 18 | Ht 1.702 m (5' 7") | Wt 83.9 kg (185 lb) | BMI 28.98 kg/m | BSA 1.99 m Gen: no distress, overweight Lungs: clear Heart: regular, no murmurs Skin: no worrisome rashes or lesions Neuro: globally in tact Psych: pleasant affect, answers questions appropriately ASSESSMENT AND PLAN: (E03.4) Hypothyroidism due to acquired atrophy of thyroid (primary encounter diagnosis) Plan: TSH WITH FREE T4 IF INDICATED (I10) HTN, goal below 130/80 Plan: stable (K76.0) Fatty liver Plan: stable LFTs (N30.10) Chronic interstitial cystitis Plan: currently quiescent (I97.2) Post-mastectomy lymphedema syndrome Plan: chronic (M50.30) DDD (degenerative disc disease), cervical Plan: chronic/stable (G62.0, T45.1X5A) Polyneuropathy following chemotherapy Plan: chronic/stable (E66.3) Overweight (BMI 25.0-29.9) Plan: healthy weight given her chronic issues (G31.84) MCI (mild cognitive impairment) Plan: no recent decline in cognition (Z85.3) History of breast cancer Plan: noted (F31.9) Bipolar depression (HCC) Plan: follows with psychiatry (I34.0) Moderate mitral regurgitation Plan: clinically quiescent at present Follow up in 3 month(s). No other complaints were offered at this time. Dav Hargrove MD documented in this encounter Nursing Notes * Laly Brantley LPN - 04/21/2023 8:47 AM EST The patient has been properly identified by confirmation of name and date of . Chief Complaint Patient presents with Follow Up Pt here for 6 month follow up documented in this encounter Plan of Treatment Upcoming Encounters Date Type Department Care Team (Late st Contact Info) Description 04/22/2023 9:00 AM EST Imaging Radiology [facility] 1st [facility] [address] [place] [address] 05/11/2023 10:00 AM EST Office Visit Orthopaedics [facility] [address] [place] [address] Ren Lyn DO [address] [place] [address] 06/16/2023 2:55 PM EST Office Visit Urogynecology [facility] [address] [place] [address] Joaquin Johns MD [address] [place] [address] Nurse Srinivasan Urogyn [facility] [address] [place] [address] 07/20/2023 2:40 PM EDT Office Visit Otolaryngology [facility] [address] [place] [address] Idalia Lora PA-C [address] [place] [address] 07/20/2023 5:20 PM EDT Office Visit Family Practice [facility] [address] [place] [address] Dav Hargrove MD [address] [place] [address] 07/28/2023 3:00 PM EDT Office Visit Urology, [facility] [address] [place] [address] Cristian Griffin MD [address] [place] [address] [place] [address] 08/31/2023 1:30 PM EDT Office Visit Allergy/Immunology [facility] [address] [facility] [address] [place] [address] Yordan Jones MD [address] [facility] [place] [address] 10/22/2023 10:00 AM EDT Office Visit Nephrology, [facility] [address] [facility] [place] [address] Bonnie Trevizo MD [address] [facility] [place] [address] Scheduled Procedures Name Priority Associated Diagnoses Date/Ti me COLONOSCOPY FLEXIBLE PROXIMAL DIAGNOSTIC Recall History of colon polyps Health Maintenance Due Date Last Done Comments COVID-19 Vaccine ( - 2022- season) 2022 08/10/2020, 07/02/2020, 06/06/2020 Depression Screening [...] this encounter Medical Devices Implanted Type Area Head Host/Hostess Device Identifier Shelf Expiration Date Model / Serial / Lot Sureclip 16mm 235cm - [id number] Implanted:Qty: 2 on 12/10/2022 by Junior Us MD at ENDOSCOPY [facility] Stomach MICRO TECH ENDOSCOPY 10/13/2023 [id number] / / [id number] documented as of this encounter Results * TSH WITH FREE T4 IF INDICATED (04/21/2023 9:42 AM EST) TSH 0.87 0.27 - 4.20 uIU/mL 04/21/2023 8:59 PM EST [facility] Blood Venous blood specimen / Unknown Venipuncture / Unknown 04/21/2023 9:42 AM EST 04/21/2023 9:43 AM EST Dav Hargrove MD LAB BLOOD ORDERAB LES [facility] [address] [place] [address] documented in this encounter Visit Diagnoses Diagnosis Hypothyroidism due to acquired atrophy of thyroid- Primary HTN, goal below 130/80 Unspecified essential hypertension Fatty liver Other chronic nonalcoholic liver disease Chronic interstitial cystitis Post-mastectomy lymphedema syndrome Postmastectomy lymphedema syndrome DDD (degenerative disc disease), cervical Degeneration of cervical intervertebral disc Polyneuropathy following chemotherapy Polyneuropathy due to drugs Overweight (BMI 25.0-29.9) Overweight MCI (mild cognitive impairment) Mild cognitive impairment, so stated History of breast cancer Personal history of malignant neoplasm of breast Bipolar depression (HCC) Bipolar I disorder, most recent episode (or current) depressed, unspecified Moderate mitral regurgitation Mitral valve disorders documented in this encounter Advance Directives Latest [...] the patient have Health Care Power of Fabrication And Layout Craftsman? No Code Status History Code Status Date Activated Date Inactivated Comments Full Code 03/09/2023 7:16 AM 03/09/2023 9:42 AM Thi s order reflects the patients wishes and were consensually agreed upon. Question Answer Comments Discussion of Advance Directives occurred with: Not Discussed due to patient's condition Care Teams Supervisor Boilermaking Shop Relationship Specialty Start Date End Date Dav Hargrove MD 132 [facility] [place] [address] PCP - General Family Medicine 05/28/20 documented as of this encounter
--- OUTSIDE RECORDS SUMMARY | 2023-06-13 22:46 | External Medical Summary | Summary of Care ---
Author Name Unknown Organization [facility] [address] [facility] [address] Phone [phone] Care Team Providers Care Medical Office Professional Instructor Name Role Phone Dav Hargrove MD Primary Care Provider [phone] Encounter Details Date Type Department Care Team (Late st Contact Info) Description 04/27/2023 Telephone General Surgery, [facility] [address] [place] [address] Minda Almodovar MD [address] [place] [address] Allergies Active Allergy Reactions Criticality Noted Date [...] as of this encounter (statuses as of 04/27/2023) Medications Medication Sig Dispensed Refills Start Date [...] Active Additional Information Patient taking differently: 8 [id number] PRN, Nausea, [place]08/2023 [facility] [place] Devices Refurbish current custom molded inserts - [...] times a day. 0 07/17/2022 Active Ipratropium [place] 0.03 % Nasal Solution (Atrovent) USE 2 [...] as of this encounter (statuses as of 04/27/2023) Active Problems Problem Noted Date Diagnosed Date [...] as of this encounter (statuses as of 04/27/2023) Resolved Problems Problem Noted Date Diagnosed Date [...] as of this encounter (statuses as of 04/27/2023) Immunizations Name Administration Dates Next Due COVID-19 mRNA, LNP-s, No Pre serve, 2-Dose Series ([employer]) 07/02/2020,06/06/2020 Pneumococcal Conjugate Vacc, 13 Valent (Prevnar) [...] on file documented as of this encounter Miscellaneous Notes * Telephone Encounter - Minda Almodovar MD - 04/27/2023 2:40 PM EST Email sent to pt Right mammo and us order placed yesterday documented in this encounter Plan of Treatment Upcoming Encounters Date Type Department Care Team (Late st Contact Info) Description 04/28/2023 10:30 AM EST Imaging Radiology [facility] 1st Floor, [address] [place] [address] 04/28/2023 11:00 AM EST Imaging Radiology [address] [place] [address] 05/11/2023 10:00 AM EST Office Visit Orthopaedics [address] [place] [address] Ren Lyn DO 132 [facility] [place] [address] 06/16/2023 2:55 PM EST Office Visit Urogynecology [facility] 132 [facility] [place] [address] Joaquin Johns MD [address] [place] [address] Nurse Cherelle Mattson Katie [address] [place] [address] 07/20/2023 2:40 PM EDT Office Visit Otolaryngology [facility] [address] [place] [address] Idalia Lora PA-C 132 [place] [address] 07/20/2023 5:20 PM EDT Office Visit Family Practice [facility] [address] [place] [address] Dav Hargrove MD [address] [place] [address] 07/28/2023 3:00 PM EDT Office Visit Urology, [facility] [address] [place] [address] Cristian Griffin MD [address] [facility] [address] [place] [address] 08/31/2023 1:30 PM EDT Office Visit Allergy/Immunology [facility] [place] [address] [place] [address] Yordan Jones MD [address] [place] [address] 10/22/2023 10:00 AM EDT Office Visit Nephrology, [facility] [address] [place] [address] Bonnie Trevizo MD [address] [place] [address] Scheduled Procedures Name Priority Associated Diagnoses Date/Ti me COLONOSCOPY FLEXIBLE PROXIMAL DIAGNOSTIC Recall History of colon polyps Health Maintenance Due Date Last Done Comments COVID-19 Vaccine (2022- season) 2022 08/10/2020, 07/02/2020, 06/06/2020 Depression Screening [...] this encounter Medical Devices Implanted Type Area Fern Cutter Device Identifier Shelf Expiration Date Model / Serial / Lot Sureclip 16mm 235cm - [id number] Implanted:Qty: 2 on 12/10/2022 by Junior Us MD at [facility]OSCOPY [facility] Stomach MICRO TECH ENDOSCOPY 10/13/2023 [id number] / / [id number] documented as of this encounter Advance Directives Latest Code Status on File Code Status Date Activated Date Inactivated Comments Full Code 03/09/2023 9:42 AM 03/09/2023 4:08 PM Thi s order reflects the patients wishes and were consensually agreed upon. Question Answer Comments Discussion of Advance Directives occurred with: Patient Does the patient have a Living Will? No Does the patient have Health Care Power of Transport Manager? No Code Status History Code Status Date Activated Date Inactivated Comments Full Code 03/09/2023 7:16 AM 03/09/2023 9:42 AM Thi s order reflects the patients wishes and were consensually agreed upon. Question Answer Comments Discussion of Advance Directives occurred with: Not Discussed due to patient's condition Care Teams Medical Office Professional Instructor Relationship Specialty Start Date End Date Dav Hargrove MD [address] [place] [address] PCP - General Family Medicine 05/28/20 documented as of this encounter
--- OUTSIDE RECORDS SUMMARY | 2023-06-13 22:46 | External Medical Summary | Summary of Care ---
Author Name Unknown Organization [facility] [address] [address] Phone [phone] Care Team Providers Care Bead Worker Sewing Name Role Phone Dav Hargrove MD Primary Care Provider [phone] [phone] Encounter Details Date Type Department Care Team (Late st Contact Info) Description 04/27/2023 Telephone General Surgery, [facility] [address] [place] [address] Minda Almodovar MD [address] [place] [address] Allergies Active Allergy Reactions Criticality Noted Date [...] Active Additional Information Patient taking differently: 8 [id number] PRN, Nausea, Reported on 02/08/2023 [facility] [place]. Devices Refurbish current custom molded inserts - [...] times a day. 0 07/17/2022 Active Ipratropium [place] 0.03 % Nasal Solution (Atrovent) USE 2 [...] mRNA, LNP-s, No Pre serve, 2-Dose Series ([employer]) 07/02/2020,06/06/2020 Pneumococcal Conjugate Vacc, 13 Valent (Prevnar) [...] Description 04/28/2023 10:30 AM EST Imaging Radiology [facility] 1st Floor, [address] [place] [address] 04/28/2023 11:00 AM EST Imaging Radiology [address] [place] [address] 05/11/2023 10:00 AM EST Office Visit Orthopaedics [address] [place] [address] Ren Lyn DO 132 [facility] [place] [address] 06/16/2023 2:55 PM EST Office Visit Urogynecology [facility] 132 [facility] [place] [address] Joaquin Johns MD [address] [place] [address] Nurse Cherelle Mattson Katie [address] [place] [address] 07/20/2023 2:40 PM EDT Office Visit Otolaryngology [facility] 132 [place] [address] Idalia Lora PA-C 132 [place] [address] 07/20/2023 5:20 PM EDT Office Visit Family Practice [facility] [address] [place] [address] Dav Hargrove MD [address] [place] [address] 07/28/2023 3:00 PM EDT Office Visit Urology, [facility] 132 [place] [address] Cristian Griffin MD [address] [facility] [address] [place] [address] 08/31/2023 1:30 PM EDT Office Visit Allergy/Immunology [facility] [place] [address] [place] [address] Yordan Jones MD [address] [place] [address] 10/22/2023 10:00 AM EDT Office Visit Nephrology, [facility] [address] [place] [address] Bonnie Trevizo MD [address] [place] [address] Scheduled Procedures Name Priority Associated Diagnoses Date/Ti [...] this encounter Medical Devices Implanted Type Area Financial Services Rep Device Identifier Shelf Expiration Date Model / Serial / Lot Sureclip 16mm 235cm - [id number] Implanted:Qty: 2 on 12/10/2022 by Junior Us MD at ENDOSCOPY [facility] Stomach MICRO TECH ENDOSCOPY 10/13/2023 [id number] / / [id number] documented as of this encounter Advance Directives [...] the patient have Health Care Power of Theatre Instructor? No Code Status History Code Status Date Activated Date Inactivated Comments Full Code 03/09/2023 7:16 AM 03/09/2023 9:42 AM Thi s order reflects the patients wishes and were consensually agreed upon. Question Answer Comments Discussion of Advance Directives occurred with: Not Discussed due to patient's condition Care Teams Bead Worker Sewing Relationship Specialty Start Date End Date Dav Hargrove MD [address] [place] [address] PCP - General Family Medicine 05/28/20 documented as of this encounter
--- OUTSIDE RECORDS SUMMARY | 2023-06-13 22:46 | External Medical Summary ---
Author Name Unknown Address Unknown Organization K01:[facility] [address] [facility] [address] Laboratory Report Ordering Provider Test Date Status NUSRAT ANDRESYUSUF 05/06/2023 12:47:47 Final <10,000 colonies/ml mixed no rmal mirian Observation Date Value Abnormality Reference (Units ) Status Bacteria identified in Specimen by Culture 05/06/2023 12:47:47 [id number]^ESCHE RICHIA COLI Abnormal Final >100,000 colonies/mL Escheri judy coli Performing Location [facility] [address] [facility] [address] Ordering Provider Test Date Status NUSRAT ANDRESYUSUF 05/06/2023 12:47:47 Final Observation Date Value Abnormality Reference (Units ) Status Ampicillin 05/06/2023 12:47:47 >=32 Resistant Final Ampicillin + Sulbactam 05/06/2023 12:47:47 4 Susceptible Final Cefazolin 05/06/2023 12:47:47 <=4 Susceptible Final Cefepime susceptibility 05/06/2023 12:47:47 <=1 Susceptible Final Ceftriaxone suceptibility 05/06/2023 12:47:47 <=1 Susceptible Final Ciprofloxacin 05/06/2023 12:47:47 <=0.25 Susceptible Final Due to serious side effects, the FDA has advised against using Ciprofloxacin to treat uncomplicated UTIs and respiratory tract infections unless there are no alternative treatment options. Gentamicin susceptibility 05/06/2023 12:47:47 <=1 Susc eptible Final Nitrofurantoin susceptibility 05/06/2023 12:47:47 <=16 Susceptible Final Piperacillin + Tazobactamsusceptibility 05/06/2023 12:47:47 <=4 Susceptible Final TMP-SMZ susceptibility 05/06/2023 12:47:47 <=20 Suscept ible Final Test: Culture, Urine, Quanti tative
Specimen Source: Urine, Clean Catch
Specimen Type: Urine
Specimen Date: 05/06/2023 12:47 PM
Result Date: 05/08/2023 9:58 AM
Result Status: Final result
Abnormal: Yes
Resulting Lab: [facility]
[address]
[place] [address]

CULTURE

>100,000 colonies/mL Escherichia coli (Abnormal)

<10,000 colonies/ml mixed normal mirian

SUSCEPTIBILITY

Escherichia coli
METHOD MICROBROTH DILUTIONS

AMPICILLIN >=32 Resistant
AMPICILLIN/SULBACTAM 4 Susceptible
CEFAZOLIN <=4 Susceptible
CEFEPIME <=1 Susceptible
CEFTRIAXONE <=1 Susceptible
CIPROFLOXACIN <=0.25 Susceptible [1]
GENTAMICIN <=1 Susceptible
NITROFURANTOIN <=16 Susceptible
PIPERACILLIN TAZOBACTAM <=4 Susceptible
TRIMETH/SULFAMETHOXAZOLE <=20 Susceptible

[1] Due to serious side effects, the FDA has advised against using
Ciprofloxacin to treat uncomplicated UTIs and respiratory tract infections
unless there are no alternative treatment options.

null Performing Location [facility] [place] [address] [facility] [address]
--- OUTSIDE RECORDS SUMMARY | 2023-06-13 22:46 | External Medical Summary | Summary of Care ---
Author Name Unknown Organization [facility] Address [address] [place] [address] Phone [phone] Care Team Providers Care Commercial Underwriter Name Role Phone Dav Hargrove MD Primary Care Provider [phone] Reason for Visit * Reason Comments Outpatient Testing Encounter Details Date Type Department Care Team (Late st Contact Info) Description 05/06/2023 11:30 AM EST Laboratory Laboratory, [facility] [address] [place] [address] [facility] [address] [place] [address] Suspected UTI Allergies Active Allergy Reactions Criticality Noted Date [...] as of this encounter (statuses as of 05/06/2023) Medications Medication Sig Dispensed Refills Start Date [...] Active Additional Information Patient taking differently: 8 [id number] PRN, Nausea, Reported on 02/08/2023 [facility]. Devices Refurbish current custom molded inserts - [...] times a day. 0 07/17/2022 Active Ipratropium Bassett 0.03 % Nasal Solution (Atrovent) USE 2 [...] as of this encounter (statuses as of 05/06/2023) Active Problems Problem Noted Date Diagnosed Date [...] as of this encounter (statuses as of 05/06/2023) Resolved Problems Problem Noted Date Diagnosed Date [...] as of this encounter (statuses as of 05/06/2023) Immunizations Name Administration Dates Next Due COVID-19 mRNA, LNP-s, No Pre serve, 2-Dose Series (AqueSys) 07/02/2020,06/06/2020 Pneumococcal Conjugate Vacc, 13 Valent (Prevnar) [...] on file documented as of this encounter Plan of Treatment Upcoming Encounters Date Type Department Care Team (Late st Contact Info) Description 05/11/2023 10:00 AM EST Office Visit Orthopaedics [facility] [address] [place] [address] Ren Lyn DO [address] [place] [address] 05/20/2023 11:00 AM EST Office Visit Family Practice [facility] [address] [place] [address] Dariana Fish CRNP [address] [place] [address] 06/16/2023 2:55 PM EST Office Visit Urogynecology [facility] [address] [place] [address] Joaquin Johns MD [address] [place] [address] Nurse Cherelle Mattson [address] [place] [address] 07/20/2023 2:40 PM EDT Office Visit Otolaryngology [facility] [address] [place] [address] Idalia Lora PA-C [address] [place] [address] 07/20/2023 5:20 PM EDT Office Visit Family Practice [facility] [address] [place] [address] Dav Hargrove MD [address] [place] [address] 07/28/2023 3:00 PM EDT Office Visit Urology, [facility] 132 [place] [address] Cristian Griffin MD [address] [facility] [address] [place] [address] 08/31/2023 1:30 PM EDT Office Visit Allergy/Immunology [facility] [address] [facility] [place] [address] Yordan Jones MD [address] [facility] [place] [address] 10/22/2023 10:00 AM EDT Office Visit Nephrology, [facility] [address] [facility] [place] [address] Bonnie Trevizo MD [address] [facility] [place] [address] Pending Results Name Type Priority Associated Diagnoses Date /Time CULTURE, URINE, QUANTITATIVE Lab STAT Suspected UTI 05/06/2023 12:47 PM EST URINALYSIS WITH MICROSCOPIC EXAM Lab Routine Suspected UTI 05/06/2023 12:47 PM EST Scheduled Procedures Name Priority Associated Diagnoses Date/Ti me COLONOSCOPY FLEXIBLE PROXIMAL DIAGNOSTIC Recall History of colon polyps Health Maintenance Due Date Last Done Comments COVID-19 Vaccine (4 - 2022-24 season) 2022 08/10/2020, 07/02/2020, 06/06/2020 Depression Screening [...] this encounter Medical Devices Implanted Type Area Lokie Engineer Device Identifier Shelf Expiration Date Model / Serial / Lot Sureclip 16mm 235cm - [id number] Implanted:Qty: 2 on 12/10/2022 by Junior Us MD at ENDOSCOPY [facility] Stomach MICRO TECH ENDOSCOPY 10/13/2023 [id number] / / [id number] documented as of this encounter Visit Diagnoses Diagnosis Suspected UTI documented in this encounter Advance Directives Latest [...] the patient have Health Care Power of Production Drilling Machine Operator? No Code Status History Code Status Date Activated Date Inactivated Comments Full Code 03/09/2023 7:16 AM 03/09/2023 9:42 AM Thi s order reflects the patients wishes and were consensually agreed upon. Question Answer Comments Discussion of Advance Directives occurred with: Not Discussed due to patient's condition Care Teams Commercial Underwriter Relationship Specialty Start Date End Date Dav Hargrove MD [address] [place] [address] PCP - General Family Medicine 05/28/20 documented as of this encounter
--- OUTSIDE RECORDS SUMMARY | 2023-06-13 22:46 | External Medical Summary | Summary of Care ---
Author Name Unknown Organization [facility] Address [address] [address] Phone [phone] Care Team Providers Care Forming Acid Dumper Name Role Phone Dav Hargrove MD Primary Care Provider [phone] Reason for Visit * Reason Comments Cough Pt states that she h as been coughing since Wednesday Encounter Details Date Type Department Care Team (Late st Contact Info) Description 05/27/2023 9:20 AM EST Office Visit [facility][1][place] [address] [facility] [place] [address] Noa Márquez PA-C [address] [place] [address] Bronchitis, complicated*; Chronic kidney disease with symptom management only, stage 3 (moderate) ([facility]) Allergies Active Allergy Reactions Criticality Noted Date [...] as of this encounter (statuses as of 05/27/2023) Medications Medication Sig Dispensed Refills Start Date [...] Active Additional Information Patient taking differently: 8 [id number] PRN, Nausea, Reported on 02/08/2023 [facility]. Devices Refurbish current custom molded inserts - [...] times a day. 0 07/17/2022 Active Ipratropium [place] 0.03 % Nasal Solution (Atrovent) USE 2 [...] as directed. 42.5 g 3 03/29/2023 Active Montelukast Sodium 10 MG Oral Tablet (Singulair)Indicat ions:Bronchitis, complicated Take 1 Tablet by mouth in the morning. 30 Tablet 0 05/27/2023 Active Doxycycline Hyclate 100 MG Oral CapsuleIndications :Bronchitis, complicated Take 1 Capsule by mouth in the morning and 1 Capsule before bedtime. Do all this for 10 days. Until gone.. 20 Capsule 0 05/27/2023 06/06/2023 Active documented as of this encounter (statuses as of 05/27/2023) Active Problems Problem Noted Date Diagnosed Date Chronic kidney disease with symptom management only, stage 3 (moderate) 05/27/2023 Moderate mitral regurgitation 07/20/2022 Overweight (BMI 25.0-29.9) [...] as of this encounter (statuses as of 05/27/2023) Resolved Problems Problem Noted Date Diagnosed Date [...] as of this encounter (statuses as of 05/27/2023) Immunizations Name Administration Dates Next Due COVID-19 mRNA, LNP-s, No Pre serve, 2-Dose Series (The Editorialist) 07/02/2020,06/06/2020 Pneumococcal Conjugate Vacc, 13 Valent (Prevnar) [...] Date Smoking Tobacco: Never Smokeless Tobacco: Never Tobacco Cessation:Counseling Given: Not Answered Comments:no passive smoke Alcohol Use Standard Drinks/Week Comments No 0 (1 standard drink = 0.6 oz pur e alcohol) PHQ-2 Answer Date Recorded PHQ Adult Total Score 0 12/12/2021 Hunger Vital Sign Answer Date Recorded Within the past 12 months, y ou worried that your food would run out before you got the money to buy more. Never true 05/26/19 24 Within the past 12 months, t he food you bought just didn't last and you didn't have money to get more. Never true 05/26/2023 Sex and Gender Information Value Date Recorded Sex Assigned at Female 05/11/2019 8:37 AM EST Gender Identity Female 05/11/2019 8:37 AM EST Sexual Orientation Straight 05/11/2019 8: 37 AM EST Job Start Date Occupation Industry Not on file Not on file Not on file documented as of this encounter Last Filed Vital Signs Vital Sign Reading Time Taken Comments Blood Pressure 132/68 05/27/2023 9:12 AM EST Pulse 73 05/27/2023 9:12 AM EST Temperature 36.3 C (97.3 F) 05/27/2023 9:12 AM ES T Respiratory Rate 16 05/27/2023 9:12 AM EST Oxygen Saturation 93% 05/27/2023 9:12 AM EST Inhaled Oxygen Concentration - - Weight 84.9 kg (187 lb 3.2 oz) 05/27/2023 9:12 A M EST Height 170.2 cm (5' 7") 05/27/2023 9:12 AM EST Body Mass Index 29.32 05/27/2023 9:12 AM EST documented in this encounter Progress Notes * Noa Márquez PA-C - 05/27/2023 9:34 AM EST Images from the original note were not included. History of Present Illness Mary Dyer is a 77 year old female that presents for Cough (Pt states that she has been coughing since Wednesday ) Has had a cough since the weekend. Woke and was coughing Taking tussin dm - helped a little initially Then stopped working Changed to tussin cold and flu - that helps but wears off after 2 hours Throat hurts Hacks a lot - brining up mucus Does not feel like pnd to her Ears are fine Some headache - minimal Taking tylenol No fever but she has taken chills Sleeping in recliners She denies sob Hubby has heard her wheeze but this is not necessarily unique to this. Energy low Appetite is so so - no n/v/d Just less interested in eating than normal. Voice carmelina Morrow feels coated - it is in her neck - not in her lungs where she feels this. Physical Exam Vitals: 05/27/23 0912 Temp: 36.3 C (97.3 F) Pulse: 73 Resp: 16 SpO2: 93% BP: 132/68 BMI: 29.31 BP Readings from Last 3 Encounters: 05/27/23 132/68 04/21/23 138/82 03/09/23 108/62 Wt Readings from Last 3 Encounters: 05/27/23 84.9 kg (187 lb 3.2 oz) 04/21/23 83.9 kg (185 lb) 03/25/23 85.4 kg (188 lb 3.2 oz) BMI Readings from Last 3 Encounters: 05/27/23 29.32 kg/m 04/21/23 28.98 kg/m 03/25/23 29.47 kg/m Ht Readings from Last 3 Encounters: 05/27/23 1.702 m (5' 7") 04/21/23 1.702 m (5' 7") 03/25/23 1.702 m (5' 7.01") General: alert, healthy, and no distress Head: Normocephalic, No masses, lesions, tenderness or abnormalities Eye Exam: PERRLA, extraocular movements intact, conjunctiva are pink and non- injected, sclera clear Ears: External ears normal, Canals clear, TM's Normal Nose: no mucosal erythema, no mucosal edema Oropharynx: no exudate, no erythema, lips, buccal mucosa, and tongue normal, mucous membranes are moist, and post nasal drip, class 3 mallamputi Neck: supple, no adenopathy, no bruits, thyroid normal size, non-tender, without nodularity Heart: regular rate & rhythm, no murmur, no gallops, S-1 normal, and S-2 normal Lungs: chest symmetric with normal AP diameter, no chest deformities noted, no chest wall tenderness, lungs clear to auscultation Assessment and Plan Bronchitis, complicated (Primary) - Montelukast Sodium 10 MG Oral Tablet (Singulair); Take 1 Tablet by mouth in the morning. - Doxycycline Hyclate 100 MG Oral Capsule; Take 1 Capsule by mouth in the morning and 1 Capsule before bedtime. Do all this for 10 days. Until gone.. Chronic kidney disease with symptom management only, stage 3 (moderate) (HCC) noted Wrap-Up comfort care measures discussed saline nasal spray with bulb syringe plenty of fluids Tylenol per dosing recommendations for low grade fever humidifier Home care rev Time: I spent a total of 20-29 minutes (exact time 25 mins) on the date of service in preparation, delivery, and documentation of the care provided to Mary Dyer excluding any time spent in the performance of separately billed services. Noa Márquez PA-C 05/27/2023 9:54 AM documented in this encounter Nursing Notes * Elsa Mariano CCMA - 05/27/2023 9:12 AM EST Mary Dyer is a 77 year old female who presents today for Chief Complaint Patient presents with Cough Pt states that she has been coughing since Wednesday documented in this encounter Plan of Treatment Upcoming Encounters Date Type Department Care Team (Late st Contact Info) Description 06/16/2023 2:55 PM EST Office Visit Urogynecology [facility] [address] [facility] [place] [address] Joaquin Johns MD 132 [facility] [place] [address] Nurse Cherelle Mattson Rust [address] [facility] [place] [address] 07/20/2023 2:40 PM EDT Office Visit Otolaryngology [facility] [address] [facility] [place] [address] Idalia Lora PA-C [address] [facility] [place] [address] 07/20/2023 5:20 PM EDT Office Visit Family Practice [facility] [address] [facility] [place] [address] Dav Hargrove MD 132 [facility] [place] [address] 07/28/2023 3:00 PM EDT Office Visit Urology, [facility] [address] [facility] [place] [address] Cristian Griffin MD [address] [place] [address] [place] [address] 08/11/2023 10:40 AM EDT Office Visit Podiatry [facility] [address] [facility] [place] [address] Nuha Dsouza DPM [address] [facility] [place] [address] 08/31/2023 1:30 PM EDT Office Visit Allergy/Immunology [facility] 200 [place] [address] Yordan Jones MD [address] [facility] [place] [address] 10/22/2023 10:00 AM EDT Office Visit Nephrology, [facility] [address] [facility] [place] [address] Bonnie Trevizo MD [address] [facility] [place] [address] Scheduled Procedures Name Priority Associated Diagnoses Date/Ti [...] this encounter Medical Devices Implanted Type Area Image Scientist Device Identifier Shelf Expiration Date Model / Serial / Lot Sureclip 16mm 235cm - [id number] Implanted:Qty: 2 on 12/10/2022 by Junior Us MD at ENDOSCOPY [facility] Stomach MICRO TECH ENDOSCOPY 10/13/2023 [id number] / / [id number] documented as of this encounter Visit Diagnoses Diagnosis Bronchitis, complicated- Primary Bronchitis, not specified as acute or chronic Chronic kidney disease with symptom management only, stage 3 (moderate) (HCC) documented in this encounter Advance Directives Latest [...] the patient have Health Care Power of Forestry Scientist? No Code Status History Code Status Date Activated Date Inactivated Comments Full Code 03/09/2023 7:16 AM 03/09/2023 9:42 AM Thi s order reflects the patients wishes and were consensually agreed upon. Question Answer Comments Discussion of Advance Directives occurred with: Not Discussed due to patient's condition Care Teams Forming Acid Dumper Relationship Specialty Start Date End Date Dav Hargrove MD [address] [place] [address] PCP - General Family Medicine 05/28/20 documented as of this encounter
--- OUTSIDE RECORDS SUMMARY | 2023-06-13 22:46 | External Medical Summary | Summary of Care ---
Author Name Unknown Organization [facility] Address [address] [facility] [place] [address] Phone [phone] Care Team Providers Care Larriman Helper Name Role Phone Dav Hargrove MD Primary Care Provider [phone] [phone] Reason for Visit * Reason Comments Follow Up Right peroneal injec tion Encounter Details Date Type Department Care Team (Late st Contact Info) Description 05/11/2023 10:00 AM EST Office Visit Orthopaedics [facility] [address] [place] [address] Ren Lyn, [address] [place] [address] Peroneal tenosynovitis* Allergies Active Allergy Reactions Criticality [...] Active Additional Information Patient taking differently: 8 [id number] PRN, Nausea, Reported on 02/08/2023 [facility] Devices Refurbish current custom molded inserts - [...] times a day. 0 07/17/2022 Active Ipratropium [place] 0.03 % Nasal Solution (Atrovent) USE 2 [...] tenosynovitis 2 mL IJ ONCE 05/11/2023 05/11/2023 Ended documented as of this encounter (statuses as [...] mRNA, LNP-s, No Pre serve, 2-Dose Series (Hexadite) 07/02/2020,06/06/2020 Pneumococcal Conjugate Vacc, 13 Valent (Prevnar) 05/13/2015 Pneumococcal Polysaccharide PPV23 (Pneumovax) 08/12/2012 Season Influenza, Quad, PF, Adjuvanted, 65+ Yrs, IM (FLUAD) 12/21/2019 Seasonal Influenza, PF, 6 M & above, IM , (FluLaval or Fluzone) 01/18/2018 Seasonal Influenza, Quadriva lent Hd (Fluzone Hd) 02/08/2023,12/12/2021 Seasonal Influenza, Quadriva lent, No Preserve, IM 12/25/2016,12/12/2015 Seasonal Influenza, Split, I IV3, With Preserve, Inj 12/18/2014,02/09/2014,02/13/2013,12/16,01/16/2011,01/06/2010,12/21/2008 ,02/10/2008,02/03/2006,03/02/2005,1109/2002,01/12/2002,02/14/2001 Seasonal Influenza, Trivalen t, Adjuvanted, 65+ yrs [...] this encounter Progress Notes * Ren Lyn, DO - 05/11/2023 10:00 AM EST Teodoro Dyer [id number] INJECTION NOTE Teodoro Dyer is a 77 year old female who presents to [facility] for Right peroneal tendon sheath injection Request by Dr Dsouza Assessment and Plan: f/u my chart update [address] Dsouza, ut PRN, see procedure note, handout on PRP also provided. Follow up with Dr. Dsouza in 10-12 weeks. 1) Peroneal tenosynovitis (Primary) - lidocaine 1% 1 mL - triamcinolone acetonide 40 mg/mL 1 mL inj 2 mL - POINT OF CARE US MAJOR JOINT INJECTION, ORTHO Ren Lyn DO Primary Care Sports Medicine [facility] [place] [address] Procedure note (ankle injection), right [...] resolve within 24 hours. Ren Lyn DO documented in this encounter Nursing Notes [...] Care Team (Late st Contact Info) Description 05/20/2023 11:00 AM EST Office Visit [facility] [address] [place] [address] Dariana Fish CRNP [address] [place] [address] 06/16/2023 2:55 PM EST Office Visit Urogynecology [facility] 132 [facility] [place] [address] Joaquin Johns MD 132 [place] [address] [facility] [address] [facility] [place] [address] 07/20/2023 2:40 PM EDT Office Visit Otolaryngology [facility] 132 [facility] [place] [address] Idalia Lora PA-C [facility] [address] 07/20/2023 5:20 PM EDT Office Visit Family Practice [facility] 132 [facility] [place] [address] Dav [facility]rove MD [facility] [place] [address] 07/28/2023 3:00 PM EDT Office Visit Urology, [facility] [address] [facility] [place] [address] Cristian Griffin MD [address] [place] [address] [place] [address] 08/11/2023 9:00 AM EDT Office Visit Podiatry [facility] 132 [facility] [place] [address] Nuha Dsouza, DPBrianna [address] [facility] [place] [id number] 08/31/2023 1:30 PM EDT Office Visit Allergy/Immunology [facility] 200 [facility], [place] [address] Yordan Jones MD [address] [facility] [place] [facility] 10/22/2023 10:00 AM EDT Office Visit Nephrology, [facility] [address] [facility] [place] [address] Bonnie Trevizo MD [address] [facility] [place] [address] Scheduled Procedures Name Priority Associated Diagnoses Date/Ti [...] this encounter Medical Devices Implanted Type Area Search And Rescue Officer Device Identifier Shelf Expiration Date Model / Serial / Lot Sureclip 16mm 235cm - [id number] Implanted:Qty: 2 on 12/10/2022 by Junior sU MD at ENDOSCOPY [facility] Stomach MICRO TECH ENDOSCOPY 10/13/2023 [id number] / / [id number] documented as of this encounter Procedures Procedure [...] 05/11/2023 10:10 AM EST Patient Name: TEODORO DEYR : 1945 (77y) Female Performing Provider: Ren [...] synovitis and tenosynovitis documented in this encounter Administered Medications Inactive Administered Medications - up to 3 most recent administrations Medication Order MAR Action Action Date Dose Rate Site lidocaine 1% 1 mL - triamcinolone acetonide 40 mg/mL 1 mL inj 2 mL 2 mL, Injection, ONCE, On Wed05/11/23 at 1045, For 1 dose, Lidocaine 1% 1mL Triamcinolone Acetonide 40 mg/mL 1 mL (Final concentration = 20 mg/mL) REFRIGERATE and SHAKE WELL Given 05/11/2023 3:29 PM EST 2 mL Ankle Right documented in this encounter Advance Directives Latest [...] the patient have Health Care Power of Aws Solution Architect? No Code Status History Code Status Date Activated Date Inactivated Comments Full Code 03/09/2023 7:16 AM 03/09/2023 9:42 AM Thi s order reflects the patients wishes and were consensually agreed upon. Question Answer Comments Discussion of Advance Directives occurred with: Not Discussed due to patient's condition Care Teams Larriman Helper Relationship Specialty Start Date End Date Dav Hargrove MD [address] [place] [address] PCP - General Family Medicine 05/28/20 documented as of this encounter
--- OUTSIDE RECORDS SUMMARY | 2023-06-13 22:47 | External Medical Summary | Summary of Care ---
Author Name Unknown Organization [facility] Address [address] [place] [address] Phone [phone] Care Team Providers Care Fluid Pump Operator Name Role Phone Dav Hargrove MD Primary Care Provider [phone] Reason for Visit * Reason Comments Outpatient Testing Encounter Details Date Type Department Care Team (Late st Contact Info) Description 03/15/2023 1:10 PM EST Laboratory Laboratory, [place] [address] [place] [address] [address], Specimen Drop Off [address] [address] Dysuria Allergies Active Allergy Reactions Criticality Noted Date [...] as of this encounter (statuses as of 03/15/2023) Medications Medication Sig Dispensed Refills Start Date [...] Active Additional Information Patient taking differently: 8 [id number] PRN, Nausea, Reported on 02/08/2023 [facility] Devices Refurbish current custom molded inserts - [...] times a day. 0 07/17/2022 Active Ipratropium [place] 0.03 % Nasal Solution (Atrovent) USE 2 [...] before bedtime. 120 mL 1 03/11/2023 Active documented as of this encounter (statuses as of 03/15/2023) Active Problems Problem Noted Date Diagnosed Date Moderate mitral regurgitation 07/20/2022 Overweight (BMI 25.0-29.9) 01/13/2022 Polyneuropathy following chemotherapy 08/29/2021 Gastroesophageal reflux dise ase with esophagitis without hemorrhage 05/27/2020 Hypothyroidism due to acquired atrophy of thyroi d 10/25/2017 Post-mastectomy lymphedema syndrome 08/30/2017 History of breast cancer 01/26/2017 Bipolar depression 11/01/2015 MCI (mild cognitive impairment) 11/05/2014 Dyslipidemia 02/09/2014 Chronic interstitial cystitis 02/13/2008 Fatty liver 09/19/2002 Overview: steatohepatitis Displacement of cervical int ervertebral disc without myelopathy 03/08/2002 Overview: L C2-3,C3-4,C4-5; Rc4-5,C5-6, post subluxation,mild,C3-4 HTN, goal below 130/80 04/29/2001 documented as of this encounter (statuses as of 03/15/2023) Resolved Problems Problem Noted Date Diagnosed Date [...] specified forms of hearing loss 07/14/2010 08/19/2016 Degeneration of cervical intervertebral disc 1 01/06/2021 Temporomandibular joint diso rders, unspecified 07/14/2010 01/28/2017 HTN, goal to be determined 02/13/2008 1 04/17/2008 Overview: Per HTN Taxonomy Dysuria 11/08/2007 02/13/2008 Electrolyte and fluid disorder 11/03/2007 08/19/2011 ANGIOEDEMA 06/04/2006 04/17/2010 Idiopathic urticaria 06/04/2006 017 NONALLERGIC RHINITIS 06/04/2006 008 Nasal polyp 06/04/2006 11/01/2006 ADVANCE DIRECTIVE INFORMATION 08/31/2005 05/27/2020 Overview: Information offered-patient declined Hypothyroidism 06/04/2004 11/03/2005 Cervical spondylosis 03/13/2002 07/25/2 006 Menopause 04/29/2001 08/19/2016 Major depressive disorder 04/29/2001 Overview: ICD-10 update of inactive term BENIGN NEOPLASM LG BOWEL 08/15/1999 Dyspnea and respiratory abnormality 08/15/1999 11/03/2005 Overview: ICD-10 update of inactive term documented as of this encounter (statuses as of 03/15/2023) Immunizations Name Administration Dates Next Due COVID-19 mRNA, LNP-s, No Pre serve, 2-Dose Series ([employer]) 07/02/2020,06/06/2020 Pneumococcal Conjugate Vacc, 13 Valent (Prevnar) 05/13/2015 Pneumococcal Polysaccharide PPV23 (Pneumovax) 08/12/2012 SEASONAL INFLUENZA, PF, 6 M & Above, IM , (FLULAVAL or FLUZONE) 01/18/2018 Season Influenza, Quad, PF, Adjuvanted, 65+ Yrs, IM (FLUAD) 12/21/2019 Seasonal Influenza, Quadriva lent Hd (Fluzone Hd) [...] Upcoming Encounters Date Type Department Care Team (Latest Contact Info) Description 03/25/2023 11:00 AM EST Office Visit General Surgery, [facility] [address] [place] [address] Minad Almodovar MD [address] [place] [address] 03/25/2023 2:00 PM EST Office Visit Otolaryngology [facility] [address] [place] [address] Idalia Lora PA-C [address] [place] [address] 04/06/2023 10:15 AM EST Hospital Encounter ENDO [facility], Endoscopy Room [facility] [address] [place] [address] Huyen Marmolejo, DO [address] [place] [address] 04/06/2023 10:15 AM EST - 04/06/2023 10:45 AM EST Surgery ENDO [facility], Endoscopy Room [facility] [address] [place] [address] Huyen Marmolejo, DO [address] [place] [address] COLONOSCOPY FLEXIBLE PROXIMAL DIAGNOSTIC 04/21/2023 8:40 AM EST Office Visit Family Practice [facility] 132 [facility] [place] [address] Dav Hargrove MD 132 [facility] [place] [address] 04/22/2023 9:00 AM EST [facility] [address] [place] [address] 06/15/2023 9:25 AM EST Office Visit Urogynecology [facility] [address] [place] [address] Joaquin Johns MD 132 [place] [address] Nurse Cherelle Mattson [facility] [address] [facility] [place] [address] 08/27/2023 10:30 AM EDT Office Visit Allergy/Immunology [facility] 200 [facility] [place] [address] Yordan Jones MD 200 [facility] [place] [address] 10/22/2023 10:00 AM EDT Office Visit Nephrology, [facility] 200 [facility] [place] [address] Bonnie Trevizo MD 200 [facility] [place] [address] 10/26/2023 9:30 AM EDT Office Visit Urology, [facility] 132 [place] [address] Cristian Griffin MD [address] [address] [place] [address] Pending Results Name Type Priority Associated Diagnoses Date /Time CULTURE, URINE, QUANTITATIVE Lab Routine Dysuria 03/15/2023 1:11 PM EST URINALYSIS WITH MICROSCOPIC EXAM Lab Routine Dysuria 03/15/2023 1:11 PM EST Scheduled Procedures Name Priority Associated Diagnoses Date/Ti me COLONOSCOPY FLEXIBLE PROXIMAL DIAGNOSTIC Diarrhea, unspecified type History of Clostridioides difficile infection 04/06/2023 10:15 AM EST COLONOSCOPY FLEXIBLE PROXIMAL DIAGNOSTIC Recall History of colon polyps Health Maintenance Due Date Last Done Comments COVID-19 Vaccine ( season) 2022 08/10/2020, 07/02/2020, 06/06/2020 Depression Screening 12/12/2022 12/12/2021 TSH 04/16/2023 04/16/2022, 05/14, 02/20/2021, Additional history exists DTaP,Tdap,and Td Vaccines (2 - Td or Tdap) 11/14/2023 11/13/2013, 08/26/2005, 08/26/2005 GFR 02/09/2024 02/08/2023, 09/2022, 12/31/2022, Additional history exists COLONOSCOPY-EVERY 3 YRS AGES [...] this encounter Medical Devices Implanted Type Area Cost Accounting Clerk Device Identifier Shelf Expiration Date Model / Serial / Lot Sureclip 16mm 235cm - [id number] Implanted:Qty: 2 on 12/10/2022 by Junior Us MD at ENDOSCOPY [facility] Stomach MICRO TECH ENDOSCOPY 10/13/2023 [id number] / / [id number] documented as of this encounter Visit Diagnoses Diagnosis Dysuria Diarrhea, unspecified type History of Clostridioides difficile infection documented in this encounter Advance Directives Latest [...] the patient have Health Care Power of Pillowcase Cleaner? No Code Status History Code Status Date Activated Date Inactivated Comments Full Code 03/09/2023 7:16 AM 03/09/2023 9:42 AM Thi s order reflects the patients wishes and were consensually agreed upon. Question Answer Comments Discussion of Advance Directives occurred with: Not Discussed due to patient's condition Care Teams Fluid Pump Operator Relationship Specialty Start Date End Date Dav Hargrove MD [address] [place] [address] PCP - General Family Medicine 05/28/20 documented as of this encounter
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
--- OUTSIDE RECORDS SUMMARY | 2023-06-13 22:47 | External Medical Summary ---
Author Name Unknown Address Unknown Organization [id number] [place] [address] [place] [address] Laboratory Report Ordering Provider Test Date Status CLARISA UMANZOR 04/21/2023 09:42:59 Final Observation Date Value Abnormality Reference (Units ) Status BUN 04/21/2023 09:42:59 16 6-20 (mg/dL) Final Creatinine 04/21/2023 09:42:59 1.4 Above high normal 0.5-1.0 (mg/dL) Final Glomerular filtration rate/1.73 sq M.predicted [Volume Rate/Area] in Serum, Plasma or Blood by Creatinine-based formula (CKD-EPI) 04/21/2023 09:42:59 41 Below low normal >=60 (mL/min) Final eGFR is calculated based on the CKD-EPI 2020 equation SODIUM 04/21/2023 09:42:59 140 135-146 (m mol/L) Final Potassium 04/21/2023 09:42:59 4.3 3.5-5.1 (m mol/L) Final Cl 04/21/2023 09:42:59 102 98-107 (mm ol/L) Final CO2 04/21/2023 09:42:59 25 22-32 (mmo l/L) Final Anion gap 04/21/2023 09:42:59 13 7-15 (mmol /L) Final Glucose 04/21/2023 09:42:59 106 70-120 (mg /dL) Final Calcium 04/21/2023 09:42:59 10.0 8.4-10.2 ( mg/dL) Final Performing Location [facility] [place] [address] [place] [address]
--- OUTSIDE RECORDS SUMMARY | 2023-06-13 22:47 | External Medical Summary | Summary of Care ---
Author Name Unknown Organization [facility] Address [address] [address] Phone [phone] Care Team Providers Care Heel Coverer Machine Operator Name Role Phone Dav Hargrove MD Primary Care Provider [phone] Reason for Visit * Reason Comments Post-Op Lap Esme. Encounter Details Date Type Department Care Team (Late st Contact Info) Description 03/25/2023 11:00 AM EST Office Visit General Surgery, [facility] [address] [place] [id number] Minda Almodovar MD [address] [place] [address] S/P laparoscopic cholecystectomy* Allergies Active Allergy Reactions Criticality Noted Date [...] as of this encounter (statuses as of 03/25/2023) Medications Medication Sig Dispensed Refills Start Date [...] Active Additional Information Patient taking differently: 8 [id number] PRN, Nausea, Reported on 02/08/2023 [facility]. Devices Refurbish current custom [...] times a day. 0 07/17/2022 Active Ipratropium [place] 0.03 % Nasal Solution (Atrovent) USE 2 [...] as of this encounter (statuses as of 03/25/2023) Active Problems Problem Noted Date Diagnosed Date [...] as of this encounter (statuses as of 03/25/2023) Resolved Problems Problem Noted Date Diagnosed Date [...] Hypothyroidism 06/04/2004 11/03/2005 Cervical spondylosis 03/13/2002 006 Menopause 04/29/2001 08/19/2016 Major depressive disorder 04/29/2001 Overview: ICD-10 update of inactive term BENIGN NEOPLASM LG BOWEL 08/15/1999 Dyspnea and respiratory abnormality 08/15/1999 11/03/2005 Overview: ICD-10 update of inactive term documented as of this encounter (statuses as of 03/25/2023) Immunizations Name Administration Dates Next Due COVID-19 mRNA, LNP-s, No Pre serve, 2-Dose Series (Pfizer) 07/02/2020,06/06/2020 Pneumococcal Conjugate Vacc, 13 Valent (Prevnar) [...] as of this encounter Progress Notes * Minda Almodovar MD - 03/25/2023 11:08 AM EST Mary Dyer is s/p a laparascopic cholecystectomy on 03/09/23. Doing well. Pt. is tolerating a regular diet, having bowel movements, and has good pain control. No postoperative concerns. Starting to get her appetite back. No diarrhea. Did have some nausea with the pain medicine. Did have a cheeseburger and noted some heartburn - took pepto bismol and it subsided. A. Gallbladder, cholecystectomy: Chronic cholecystitis, and cholesterolosis with cholesterol polyp formation; no dysplasia identified. PE: not currently . Gen: looks well, alert Abdomen: soft, nontender, nodistended, incisions clean, dry and intact Assessment: No issues following laparascopic cholecystectomy. Return to full activity in two weeks following surgery. If diarrhea occurs, discussed benefit of a low fat diet for six weeks. Pathology report reviewed with patient. Plan: Followup in the office PRN or if questions arise. Minda Almodovar M.D. 03/25/2023 11:08 AM documented in this encounter Nursing Notes * Rex Shin, MED ASSIST - 03/25/2023 11:02 AM EST Chief Complaint Patient presents with Post-Op Lap Esme. Verified patient. No pain. documented in this encounter Plan of Treatment Upcoming Encounters Date Type Department Care Team (Late st Contact Info) Description 03/25/2023 2:00 PM EST Office Visit Otolaryngology [facility] 132 [facility] [place] [address] Idalia Lora PA-C [address] [place] [address] 04/21/2023 8:40 AM EST Office Visit Family Practice [facility] 132 [facility] [place] [address] Dav Hargrove MD [address] [facility] [place] [address] 04/22/2023 9:00 AM EST Imaging Radiology [facility] 132 [facility] [place] [address] 06/16/2023 2:55 PM EST Office Visit Urogynecology [facility] 132 [facility] [place] [address] Joaquin Johns MD [address] [place] [address] Nurse Cherelle Mattson [facility] [address] [place] [address] 08/31/2023 1:30 PM EDT Office Visit Allergy/Immunology [facility] [place] [address] [place] [address] Yordan Jones MD [address] [place] [address] 10/22/2023 10:00 AM EDT Office Visit Nephrology, [facility] [address] [place] [address] Bonnie Trevizo MD 200 [facility] [place] [address] 10/26/2023 9:30 AM EDT Office Visit Urology, [facility] [address] [place] [address] Cristian Griffin MD 27 [facility] [address] [place] [address] Scheduled Procedures Name Priority Associated Diagnoses Date/Ti [...] this encounter Medical Devices Implanted Type Area Jewel Sawyer Device Identifier Shelf Expiration Date Model / Serial / Lot Sureclip 16mm 235cm - [id number] Implanted:Qty: 2 on 12/10/2022 by Junior Us MD at ENDOSCOPY [facility] Stomach MICRO TECH ENDOSCOPY 10/13/2023 [id number] / / [id number] documented as of this encounter Visit Diagnoses Diagnosis S/P laparoscopic cholecystectomy- Primary Other postprocedural status documented in this encounter Advance Directives Latest [...] the patient have Health Care Power of Switch Repairer? No Code Status History Code Status Date Activated Date Inactivated Comments Full Code 03/09/2023 7:16 AM 03/09/2023 9:42 AM Thi s order reflects the patients wishes and were consensually agreed upon. Question Answer Comments Discussion of Advance Directives occurred with: Not Discussed due to patient's condition Care Teams Heel Coverer Machine Operator Relationship Specialty Start Date End Date Dav Hargrove MD 132 [facility] [place] [address] PCP - General Family Medicine 05/28/20 documented as of this encounter
--- OUTSIDE RECORDS SUMMARY | 2023-06-13 22:47 | External Medical Summary | Summary of Care ---
Author Name Unknown Organization [facility] Address [address] [place] [facility] [place] [address] Phone [phone] Care Team Providers Care Tire Regrooving Machine Operator Name Role Phone Dav Hargrove MD Primary Care Provider [phone] Reason for Visit * Reason Comments Outpatient Testing Encounter Details Date Type Department Care Team (Late st Contact Info) Description 04/21/2023 9:50 AM EST Laboratory Laboratory, [facility] 132 Silent Communication [facility] [place] [address] [facility] [address] [facility] [address] Stage 3a chronic kidney disease (HCC); Hypothyroidism due to acquired atrophy of thyroid Allergies Active Allergy Reactions Criticality Noted Date [...] Active Additional Information Patient taking differently: 8 [id number] PRN, Nausea, Reported on 02/08/2023 [facility] [place]. Devices Refurbish current custom molded [...] times a day. 0 07/17/2022 Active Ipratropium [place] 0.03 % Nasal Solution (Atrovent) USE 2 [...] mRNA, LNP-s, No Pre serve, 2-Dose Series ([employer]) 07/02/2020,06/06/2020 Pneumococcal Conjugate Vacc, 13 Valent (Prevnar) [...] 04/21/2023 10:20 AM EST Office Visit Podiatry [facility] 132 [facility] [place] [address] Nuha Dsouza DPM [address] [place] [address] [place] [address] Right foot pain*; Polyneuropathy; Peroneal tendinitis of right lower extremity; Lumbar radiculopathy 04/22/2023 9:00 AM EST Imaging Radiology [facility] 1st [facility] [address] [facility] [place] [address] 06/16/2023 2:55 PM EST Office Visit Urogynecology [facility] [address] [facility] [place] [address] Joaquin Johns MD 132 [facility] [place] [address] Nurse Cherelle Mattson 132 [facility] [place] [address] 07/20/2023 2:40 PM EDT Office Visit Otolaryngology [facility] 132 [place] [address] Idalia Lora PA-C 132 [facility] [place] [address] 07/20/2023 5:20 PM EDT Office Visit Family Practice [facility] 132 [place] [address] Dav Hargrove MD 132 [place] [address] 07/28/2023 3:00 PM EDT Office Visit Urology, [facility] 132 [place] [address] Cristian Griffin MD 27 [facility] [address] [place] [address] 08/31/2023 1:30 PM EDT Office Visit Allergy/Immunology [facility] 200 [facility] [place] [address] Yordan Jones MD 200 [facility] [place] [address] 10/22/2023 10:00 AM EDT Office Visit Nephrology, [facility] 200 [facility] [place] [address] Bonnie Trevizo MD 200 [facility] [place] [address] Pending Results Name Type Priority Associated Diagnoses Date /Time BASIC METABOLIC PANEL Lab Routine Stage 3a chronic kidney disease (HCC) 04/21/2023 9:42 AM EST TSH WITH FREE T4 IF INDICATED Lab Routine Hypothyroidism due to acquired atrophy of thyroid 04/21/2023 9:42 AM EST Scheduled Procedures Name Priority Associated Diagnoses [...] this encounter Medical Devices Implanted Type Area Needle Loom Setter Device Identifier Shelf Expiration Date Model / Serial / Lot Sureclip 16mm 235cm - [id number] Implanted:Qty: 2 on 12/10/2022 by Junior Us MD at ENDOSCOPY [facility] Stomach MICRO TECH ENDOSCOPY 10/13/2023 [id number] / / [id number] documented as of this encounter Visit Diagnoses Diagnosis Right foot pain- Primary Pain in limb Polyneuropathy Unspecified hereditary and idiopathic peripheral neuropathy Peroneal tendinitis of right lower extremity Other enthesopathy of ankle and tarsus Lumbar radiculopathy Thoracic or lumbosacral neuritis or radiculitis, unspecified Stage 3a chronic kidney disease (HCC) Hypothyroidism due to acquired atrophy of thyroid documented in this encounter Advance Directives Latest [...] the patient have Health Care Power of Scheduler Conveyor? No Code Status History Code Status Date Activated Date Inactivated Comments Full Code 03/09/2023 7:16 AM 03/09/2023 9:42 AM Thi s order reflects the patients wishes and were consensually agreed upon. Question Answer Comments Discussion of Advance Directives occurred with: Not Discussed due to patient's condition Care Teams Tire Regrooving Machine Operator Relationship Specialty Start Date End Date Dav Hargrove MD 132 [facility] [place] [address] PCP - General Family Medicine 05/28/20 documented as of this encounter
--- OUTSIDE RECORDS SUMMARY | 2023-06-13 22:47 | External Medical Summary | Summary of Care ---
Author Name Unknown Organization [facility] Address [address] [facility] [place] [address] Phone [phone] Care Team Providers Care Basin Operator Name Role Phone Dav Hargrove MD Primary Care Provider [phone] Encounter Details Date Type Department Care Team (Late st Contact Info) Description 01/12/2023 Telephone Nephrology, [facility] [address] [place] [address] Bonnie Robbins, zigzag elastic attacher Allergies Active Allergy Reactions Criticality Noted Date [...] as of this encounter (statuses as of 04/13/2023) Medications Medication Sig Dispensed Refills Start Date End Date Status ASPIRIN 81 MG PO TABS one by mouth daily 0 Active Cyanocobalamin (B-12) 100 MCG TABS Take 1 Tab by mouth daily. In AM 0 Active Multiple Vitamins-Minerals (MULTIVITAL-M) Tablet Take 1 Tablet by mouth every afternoon. 0 Active Calcium Carb-Cholecalcife rol (CALCIUM + D3) 600-200 MG-UNIT per tablet [...] morning and 1 Tablet before bedtime. 0 8 Active Artificial Tear Solution (SOOTHE XP) SOLN [...] 1 Tablet by mouth at bedtime. 0 9 Active traZODone (DESYREL) 100 MG Tablet Take 2 Tablets by mouth at bedtime. 0 0 Active Simethicone 80 MG Oral Tablet Chewable [...] DAY NEEDED FOR DIZZINESS 180 Tab 0 0 Active ondansetron (ZOFRAN) 4 MG Tablet Take 1 Tab by mouth every 12 hours as needed for Nausea. 20 Tab 0 0 Active Additional Information Patient taking differently: 8 [id number] PRN, Nausea, Reported on 02/08/2023 [facility] [place]. Devices Refurbish current custom molded inserts - hindfoot varus post (lateral) 1 Each 0 0 Active Methocarbamol 500 MG Oral Tablet (Robamol) Take 1 Tablet by mouth in the morning and 1 Tablet at noon and 1 Tablet in the evening and 1 Tablet before bedtime. 0 Active Fluticasone Propionate 50 MCG/ACT Nasal Suspension (Flonase) USE 2 SPRAYS IN BOTH NOSTRILS TWICE DAILY 96 g 4 3 Active Dicyclomine HCl 20 MG Oral Tablet (Bentyl) TAKE 1 TABLET BY MOUTH 4 TIMES DAILY NEEDED FOR CRAMPING AND FOR ABDOMINAL PAIN 360 Tablet 3 3 Active traMADol HCl 50 MG Oral Tablet (Ultram)Indicatio ns:Lymphedema of left upper extremity Take 2 Tablets by mouth every 6 hours as needed for Pain, Severe. 120 Tablet 2 3 Active tiZANidine HCl 2 MG Oral Tablet (Zanaflex)Indicat ions:as needed Take by mouth 3 times a day. 0 3 Active Ipratropium [place] 0.03 % Nasal Solution (Atrovent) USE 2 SPRAYS IN BOTH NOSTRILS 4 TIMES DAILY 150 mL 3 3 Active Fluocinonide 0.05 % External Gel Apply topically to affected area 2 times a day. 0 Active Gabapentin 100 MG Oral Capsule (Neurontin) Take 1 Capsule by mouth in the morning and 1 Capsule at noon and 1 Capsule before bedtime. With 300 mg tabs. 270 Capsule 1 3 Active busPIRone HCl 7.5 MG Oral Tablet (Buspar)Indicatio ns:in am 0 3 Active Omeprazole 20 MG Oral Capsule Delayed Release (PriLOSEC)Indicat ions:Gastroesopha geal reflux disease with esophagitis without hemorrhage Take 1 Capsule by mouth in the morning and 1 Capsule in the evening. 180 Capsule 3 3 Active Sucralfate 1 GM Oral Tablet (Carafate) Take 1 Tablet by mouth 4 times a day before meals and at bedtime. half an hour before meals and at bedtime 120 Tablet 5 3 Active Nitrofurantoin Macrocrystal 50 MG Oral Capsule (Macrodantin)Dorita cations:Dysuria Take 1 Capsule by mouth in the morning and 1 Capsule at noon and 1 Capsule in the evening and 1 Capsule before bedtime. Do all this for 7 days. Until gone. 28 Capsule 0 3 03/09/20 Discontinued Fluconazole 150 MG Oral Tablet (Diflucan)Indicat ions:Vaginal itching Take 1 Tablet by mouth once for 1 dose. 1 Tablet 0 3 03/09/20 Discontinued Nitrofurantoin Monohyd Macro 100 MG Oral Capsule (Macrobid)Indicat ions:Dysuria Take 1 Capsule by mouth in the morning and 1 Capsule before bedtime. Do all this for 10 days. With food until gone. 20 Capsule 0 3 03/09/20 23 Discontinued Cephalexin 500 MG Oral Capsule Take 1 Capsule by mouth in the morning and 1 Capsule before bedtime. Do all this for 10 days. 20 Capsule 0 3 03/09/20 23 Discontinued documented as of this encounter (statuses as of 04/13/2023) Active Problems Problem Noted Date Diagnosed Date [...] as of this encounter (statuses as of 04/13/2023) Resolved Problems Problem Noted Date Diagnosed Date [...] as of this encounter (statuses as of 04/13/2023) Immunizations Name Administration Dates Next Due COVID-19 mRNA, LNP-s, No Pre serve, 2-Dose Series ([employer]) 07/02/2020,06/06/2020 Pneumococcal Conjugate Vacc, 13 Valent (Prevnar) 05/13/2015 Pneumococcal Polysaccharide PPV23 (Pneumovax) 08/12/2012 Season Influenza, Quad, PF, Adjuvanted, 65+ Yrs, IM (FLUAD) 12/21/2019 Seasonal Influenza, PF, 6 M & above, IM , (FluLaval or Fluzone) 01/18/2018 Seasonal Influenza, Quadriva lent Hd (Fluzone Hd) 12/12/2021 Seasonal Influenza, Quadriva lent, No Preserve, IM [...] encounter Miscellaneous Notes * Telephone Encounter - Faith Chase OSA - 01/12/2023 10:41 AM EDT Patient needs appointment with dr robbins in 6 months from now, which is July but there are zero openings, I did put her on a waitlist for an appointment in October.If you guys could find any appointments in July or sooner than October they would appreciate that. Thank you. documented in this encounter Plan of Treatment Upcoming Encounters Date Type Department Care Team (Late st Contact Info) Description 04/15/2023 12:45 PM EST NeuroDiagnostic Study Neurophysiology [facility] 132 [facility] [place] [address] Odilon Osborne, DO 200 [facility] [place] [place] [address] 04/21/2023 8:40 AM EST Office Visit Family Practice [facility] 132 [facility] [place] [address] Dav Hargrove MD [address] [place] [address] 04/21/2023 10:20 AM EST Office Visit Podiatry [facility] 132 [facility] [place] [address] Nuha Dsouza, [address] [address] 04/22/2023 9:00 AM EST [facility] 132 [facility] [place] [address] 06/16/2023 2:55 PM EST Office Visit Urogynecology [facility] 132 [facility] [place] [address] Joaquin Johns MD [address] [place] [address] MattsonNurse Cherelle santiago [facility] 132 [facility] [place] [address] 07/20/2023 2:40 PM EDT Office Visit Otolaryngology [facility] 132 [facility] [place] [address] Idalia Lora PA-C 132 [facility] [place] [address] 07/28/2023 3:00 PM EDT Office Visit Urology, [facility] [address] [place] [address] Cristian Griffin MD [address] [place] [address] [place] [address] 08/31/2023 1:30 PM EDT Office Visit Allergy/Immunology [facility] 200 [facility] [place] [address] Yordan Jones MD 200 [facility] [place] [address] 10/22/2023 10:00 AM EDT Office Visit Nephrology, [facility] 200 [facility] [place] [address] Bonnie Trevizo MD 200 [facility] [place] [facility] Scheduled Procedures Name Priority Associated Diagnoses Date/Ti [...] this encounter Medical Devices Implanted Type Area Acquisitions Analyst Device Identifier Shelf Expiration Date Model / Serial / Lot Sureclip 16mm 235cm - [id number] Implanted:Qty: 2 on 12/10/2022 by Junior Us MD at ENDOSCOPY [facility] Stomach MICRO TECH ENDOSCOPY 10/13/2023 [id number] / / [id number] documented as of this encounter Advance Directives [...] the patient have Health Care Power of Benzene Operator? No Code Status History Code Status Date Activated Date Inactivated Comments Full Code 03/09/2023 7:16 AM 03/09/2023 9:42 AM Thi s order reflects the patients wishes and were consensually agreed upon. Question Answer Comments Discussion of Advance Directives occurred with: Not Discussed due to patient's condition Care Teams Basin Operator Relationship Specialty Start Date End Date Dav Hargrove MD 132 [place] [address] PCP - General Family Medicine 05/28/20 documented as of this encounter
--- OUTSIDE RECORDS SUMMARY | 2023-06-13 22:47 | External Medical Summary | Summary of Care ---
Author Name Unknown Organization [facility] Address [address] [place] [facility] [place] [address] Phone [phone] Care Team Providers Care Can Line Operator Name Role Phone Dav Hargrove MD Primary Care Provider [phone] [phone] Reason for Visit * Reason Comments EMG Encounter Details Date Type Department Care Team (Late st Contact Info) Description 04/15/2023 12:45 PM EST NeuroDiagnostic Study Neurophysiology [facility] [address] [facility] [place] [address] Odilon Osborne, DO [address] [place] [address] Arrived Allergies Active Allergy Reactions Criticality Noted Date [...] as of this encounter (statuses as of 04/15/2023) Medications Medication Sig Dispensed Refills Start Date [...] Active Additional Information Patient taking differently: 8 [id number] PRN, Nausea, Reported [place] 02/08/2023 [facility] [place] Devices Refurbish current custom [...] times a day. 0 07/17/2022 Active Ipratropium [employer] 0.03 % Nasal Solution (Atrovent) USE 2 [...] as of this encounter (statuses as of 04/15/2023) Active Problems Problem Noted Date Diagnosed Date [...] as of this encounter (statuses as of 04/15/2023) Resolved Problems Problem Noted Date Diagnosed Date [...] as of this encounter (statuses as of 04/15/2023) Immunizations Name Administration Dates Next Due COVID-19 [...] as of this encounter Progress Notes * Odilno Osborne DO - 04/15/2023 1:18 PM EST [facility] [place]physiology Laboratory Electromyography Report Name: Mary Dyer Date of : 1945 (77 year old) Sex: female Tech: David Brandt Referring Physician: Nuha Dsouza DPM Examining Physician: Odilon Osborne DO Examination Date: 04/15/2023 Ht Readings from Last 1 Encounters: 03/25/23 1.702 m (5' 7.01") Wt Readings from Last 1 Encounters: 03/25/23 85.4 kg (188 lb 3.2 oz) Impression: Abnormal study. This electrodiagnostic study shows evidence of followin. 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 2. 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 History and Physical examination: A 77-year-old female with several low back surgeries referred forevaluation of numbness in both feet. On examination she has high-arched feet and hammertoes. EMG/NCS performed for evaluation of neuropathy. Nerve Conduction Studies Examination Findings: Nerve conduction studies were performed in the right lower extremity and in select nerves in the left lower extremity and right upper extremity. The bilateral sural sensory nerve responses were absent. The radial sensory nerve study showed a normal peak latency, normal amplitude, and normal conduction velocity. The peroneal and tibial motor nerve study showed normal distal latencies, normal amplitudes, and normal conduction velocities. Please see the attached document for raw data or the scanned document in EPIC. Reference values are from the [facility] normative data guidelines that are attached at the end ofthis document. Electromyography Examination Findings: Needle examination was performed with a disposable concentric needle electrode in selected muscles of the right upper extremity, as recorded in the tables. No abnormal spontaenous activity was seen. All tested muscles demonstrated mildly to moderately increased size and mild to moderately reduced recruitment. Please see the attached document for raw data or the scanned document in EPIC. The study was done with a concentric needle examination. Odilon sOborne DO documented in this encounter Plan of Treatment Upcoming Encounters Date Type Department Care Team (Late st Contact Info) Description 04/21/2023 8:40 AM EST Office Visit Family Practice [facility] [address] [facility] [place] [address] Dav Hargrove MD 132 [facility] [place] [address] 04/21/2023 10:20 AM EST Office [facility]iatry [facility] [address] Nuha Dsouza, [address] [address] 04/22/2023 9:00 AM EST Imaging Radiology [facility] [address] [facility] [place] [address] 06/16/2023 2:55 PM EST Office Visit Urogynecology [facility] [address] [facility] [place] [address] Joaquin Johns MD 132 [facility] [place] [address] Nurse Cherelle Mattson [facility] [place] [address] 07/20/2023 2:40 PM EDT Office Visit Otolaryngology [facility] 132 [place] [address] Idalia Lora PA-C 132 [place] [address] 07/28/2023 3:00 PM EDT Office Visit Urology, [facility] 132 [place] [address] Cristian Griffin MD [address] [facility] [address] [place] [address] 08/31/2023 1:30 PM EDT Office Visit Allergy/Immunology [facility] 200 [facility] [place] [address] Yordan Jones MD [address] [facility] [place] [address] 10/22/2023 10:00 AM EDT Office Visit Nephrology, [facility] [address] [facility] [place] [address] Bonnie Trevizo MD 200 [facility] [place] [address] Scheduled Procedures Name Priority Associated Diagnoses Date/Ti [...] this encounter Medical Devices Implanted Type Area Aircraft Armament Mechanic Device Identifier Shelf Expiration Date Model / Serial / Lot Sureclip 16mm 235cm - [id number] Implanted:Qty: 2 on 12/10/2022 by Junior Us MD at ENDOSCOPY [facility] Stomach MICRO TECH ENDOSCOPY 10/13/2023 [id number] / / [id number] documented as of this encounter Visit Diagnoses Diagnosis Numbness in feet [R20.0]- Primary Disturbance of skin sensation documented in this encounter Advance Directives Latest [...] the patient have Health Care Power of Manager Of Engineering? No Code Status History Code Status Date Activated Date Inactivated Comments Full Code 03/09/2023 7:16 AM 03/09/2023 9:42 AM Thi s order reflects the patients wishes and were consensually agreed upon. Question Answer Comments Discussion of Advance Directives occurred with: Not Discussed due to patient's condition Care Teams Can Line Operator Relationship Specialty Start Date End Date Dav Hargrove MD [address] [place] [address] PCP - General Family Medicine 05/28/20 documented as of this encounter
--- OUTSIDE RECORDS SUMMARY | 2023-06-13 22:47 | External Medical Summary | Summary of Care ---
Author Name Unknown Organization [facility] Address [address] [place] [facility] [place] [place] [address] Phone [phone] Care Team Providers Care Sanipractic Physician Name Role Phone Dav Hargrove MD Primary Care Provider [phone] Reason for Visit * Reason Onset Date Comments Urinary Tract Infection Symptoms 03/16/2023 Status Check 03/16/2023 Encounter Details Date Type Department Care Team (Late st Contact Info) Description 03/16/2023 Telephone Family Practice [facility] [address] [place] [address] Dav Hargrove MD [address] [place] [address] Urinary Tract Infection Symptoms; Status C... Allergies Active Allergy Reactions Criticality Noted Date [...] as of this encounter (statuses as of 03/16/2023) Medications Medication Sig Dispensed Refills Start Date [...] Active Additional Information Patient taking differently: 8 [id number] PRN, Nausea, Reported on 02/08/2023 [facility] [place]. Devices Refurbish current custom molded inserts - [...] times a day. 0 07/17/2022 Active Ipratropium [place] 0.03 % Nasal Solution (Atrovent) USE 2 [...] before bedtime. 120 mL 1 03/11/2023 Active Cephalexin 500 MG Oral CapsuleIndications :Urinary tract infection without hematuria, site unspecified Take 1 Capsule by mouth in the morning and 1 Capsule before bedtime. Do all this for 7 days. 14 Capsule 0 03/16/2023 03/23/2023 Active documented as of this encounter (statuses as of 03/16/2023) Active Problems Problem Noted Date Diagnosed Date [...] as of this encounter (statuses as of 03/16/2023) Resolved Problems Problem Noted Date Diagnosed Date [...] as of this encounter (statuses as of 03/16/2023) Immunizations Name Administration Dates Next Due COVID-19 mRNA, LNP-s, No Pre serve, 2-Dose Series (ArQule) 07/02/2020,06/06/2020 Pneumococcal Conjugate Vacc, 13 Valent (Prevnar) [...] encounter Miscellaneous Notes * Telephone Encounter - Rowena Orta RN - 03/16/2023 4:46 PM EST Called pt and gave message to . * Telephone Encounter - Althea Mcpherson DO - 03/16/2023 11:55 AM EST Please call patient Rx for keflex sent Will watch for final culture/sensitivities * Telephone Encounter - Mary Wills OSA - 03/16/2023 11:50 AM EST Patient Edward calling in to check on the status of previous message. Edward would like message addressed today Patient Called within 48 hour timeframe. Reminded patient of 48 hour turn-around time. * Telephone Encounter - Kristina Martin RN - 03/16/2023 10:23 AM EST Patient was triaged yesterday for UTI symptoms(see notes). Patient declined appointment at that time Spouse calling back stating patient is not having a fever, and, is requesting antibiotic prescription. Urine results available. +UTI Preferred pharmacy is noted Spouse can be contacted at number provided * Telephone Encounter - Cheli Case OSA - 03/16/2023 10:17 AM EST What is the reason for call? UTI What Clinic is the patient trying to reach? [facility] Clinic: Katie Mattson - Call Type: Hot Call- warm transfer call to the patient service coordinator EMERGENT line- [phone] Caller: other: spouse-Edward Return Phone #: [phone] Call was warm transferred to Kristina at the patient service coordinator line. documented in this encounter Plan of Treatment Upcoming Encounters Date Type Department Care Team (Latest Contact Info) Description 03/25/2023 11:00 AM EST Office Visit General Surgery, [facility] [address] [place] [address] Minda Almodovar MD [address] [place] [address] 03/25/2023 2:00 PM EST Office Visit Otolaryngology [facility] [address] [place] [address] Idalia Lora PA-C [address] [place] [address] 04/06/2023 10:15 AM EST Hospital Encounter ENDO [facility], Endoscopy Room [facility] [address] [place] [phone] Huyen Marmolejo, [address] [place] [address] 04/06/2023 10:15 AM EST - 04/06/2023 10:45 AM EST Surgery ENDO [facility], Endoscopy Room [facility] [address] [place] [address] Huyen Marmolejo, [address] [place] [address] COLONOSCOPY FLEXIBLE PROXIMAL DIAGNOSTIC 04/21/2023 8:40 AM EST Office Visit Family Practice [facility] [address] [place] [address] Dav Hargrove MD [address] [place] [address] 04/22/2023 9:00 AM EST Imaging Radiology [facility]st [facility] [address] [place] [address] 06/15/2023 9:25 AM EST Office Visit Urogynecology [facility] [address] [place] [address] Joaquin Johns MD [address] [place] [address] MattsonNurse Cherelle santiago [facility] [address] [place] [address] 08/27/2023 10:30 AM EDT Office Visit Allergy/Immunology [facility] [place] [address] [place] [address] Yordan Jones MD [address] [place] [address] 10/22/2023 10:00 AM EDT Office Visit Nephrology, [facility] [place] [address] [place] [address] Bonnie Trevizo MD [address] [place] [address] 10/26/2023 9:30 AM EDT Office Visit Urology, [facility] [address] [place] [address] Cristian Griffin MD 27 [facility] [address] [place] [address] Scheduled Procedures [...] this encounter Medical Devices Implanted Type Area Computer Drafter Device Identifier Shelf Expiration Date Model / Serial / Lot Sureclip 16mm 235cm - [id number] Implanted:Qty: 2 on 12/10/2022 by Junior Us MD at ENDOSCOPY [facility] Stomach MICRO TECH ENDOSCOPY 10/13/2023 [id number] / / [id number] documented as of this encounter Visit Diagnoses Diagnosis Urinary tract infection without hematuria, site unspecified- Primary Diarrhea, unspecified type History of Clostridioides difficile [...] the patient have Health Care Power of Interior Decorator Paperhanging? No Code Status History Code Status Date Activated Date Inactivated Comments Full Code 03/09/2023 7:16 AM 03/09/2023 9:42 AM Thi s order reflects the patients wishes and were consensually agreed upon. Question Answer Comments Discussion of Advance Directives occurred with: Not Discussed due to patient's condition Care Teams Sanipractic Physician Relationship Specialty Start Date End Date Dav Hargrove MD [address] [place] [address] PCP - General Family Medicine 05/28/20 documented as of this encounter
--- OUTSIDE RECORDS SUMMARY | 2023-06-13 22:47 | External Medical Summary | Summary of Care ---
Author Name Unknown Organization [facility] Address [address] [facility] [place] [address] Phone [phone] Care Team Providers Care Attendant Lodging Facilities Name Role Phone Dav Hargrove MD Primary Care Provider [phone] [phone] Reason for Visit * Reason Comments Cerumen Impaction Encounter Details Date Type Department Care Team (Late st Contact Info) Description 03/25/2023 2:00 PM EST Office Visit Otolaryngology [facility] [address] [place] [address] Idalia Lora PA-C [address] [place] [address] Bilateral impacted cerumen* Allergies Active Allergy Reactions Criticality Noted Date [...] Active Additional Information Patient taking differently: 8 [id number] PRN, Nausea, Reported [place]/2023 [facility] [place] Devices Refurbish [...] times a day. 0 07/17/2022 Active Ipratropium [place] 0.03 % Nasal Solution (Atrovent) USE 2 [...] mRNA, LNP-s, No Pre serve, 2-Dose Series ([place]) 07/02/2020,06/06/2020 Pneumococcal Conjugate Vacc, 13 Valent (Prevnar) [...] Sign Reading Time Taken Comments Blood Pressure - - Pulse - - Temperature 36.3 C (97.3 F) 03/25/2023 1:30 PM ES T Respiratory Rate - - Oxygen Saturation - - Inhaled Oxygen Concentration - - Weight 85.4 kg (188 lb 3.2 oz) 03/25/2023 1:30 P M EST Height 170.2 cm (5' 7.01") 03/25/2023 1:30 PM ES T Body Mass Index 29.47 03/25/2023 1:30 PM EST documented in this encounter Progress Notes * Idalia Lora PA-C - 03/25/2023 2:38 PM EST SUBJECTIVE: Mary Dyer is a 77 year old female. Chief Complaint Patient presents with Cerumen Impaction HPI: Patient presents with for return appointment. She has itching of both ears recently, worse in left ear. She also reports nasal dryness. Patient Active Problem List Diagnosis Code HTN, goal below 130/80 I10 Displacement of cervical intervertebral disc without myelopathy M50.20 Fatty liver K76.0 Chronic interstitial cystitis N30.10 Dyslipidemia E78.5 MCI (mild cognitive impairment) G31.84 [...] the morning and 1 Tablet before bedtime. Artificial Tear Solution (SOOTHE XP) SOLN Instill 2 Drops into both eyes 2 times a day. Ascorbic Acid (VITAMIN C) 1000 MG Tablet [...] as needed for Nausea.) 20 Tab 0 Misc. Devices Refurbish current custom molded inserts - hindfoot varus post (lateral) 1 Each 0 Methocarbamol 500 MG Oral Tablet (Robamol) Take 1 Tablet by mouth in the morning and 1 Tablet at noon and 1 Tablet in the evening and 1 Tablet before bedtime. (Patient not taking: Reported on 02/08/2023) Fluticasone Propionate 50 MCG/ACT Nasal Suspension (Flonase) [...] by mouth 3 times a day. Ipratropium [place] 0.03 % Nasal Solution (Atrovent) USE 2 SPRAYS IN BOTH NOSTRILS 4 TIMES DAILY 150 mL 3 Fluocinonide 0.05 % External Gel Apply topically to affected area 2 times a day. (Patient not taking: Reported on 02/08/2023) Gabapentin 100 MG Oral Capsule (Neurontin) Take [...] Pain, Moderate. 20 Tablet 0 Magic Swizzle (Vxtfwmfjw-Pakvfcsc-Ycnhro) oral solution Swish and spit 15 mL in the morning and 15 mL before bedtime. 120 mL 1 No current facility-administered medications for this visit. Review of patient's allergies indicates: Allergen Reactions Flagyl [Metronidazole Hcl] Hives Baclofen Neuro complications (Please comment) Speech issues, ect Other reaction(s): unknown Ciprofloxacin Rash +pain in feet +"almost " Other reaction(s): unknown Macrobid [Nitrofurantoin] Rash - pt denies Metronidazole Other reaction(s): hives Sulfa Antibiotics Hives Zolpidem Other reaction(s): delusional Protonix [Pantoprazole Sodium Sesquihydrate] Other (Please comment) headache REVIEW OF SYSTEMS Negative for constitutional, heart, lung, liver, kidney, digestive, hematologic, neurologic, rheumatologic, or endocrine complaints except as per history of present illness and past medical history. OBJECTIVE: Temp 36.3 C (97.3 F) (Tympanic) | Ht 1.702 m (5' 7.01") | Wt 85.4 kg (188 lb 3.2 oz) | BMI 29.47 kg/m | BSA 2.01 m PHYSICAL EXAM: General: alert, healthy and no distress Ears: Examination of the ears revealed that the auricles were normally formed with no lesions. The external auditory canals were cleaned of any impacted cerumen from the canals with forceps, worse inleft canal. The tympanic membranes were intact and freely mobile to pneumatoscopy without perforation or significant retraction pockets. Nose: Septum nonobstructing, turbinates normal, no masses, polyps, or mucopus. Oropharynx: no exudate, no erythema, lips, buccal mucosa, and tongue normal and mucous membranes are moist Neck: supple, no adenopathy, no bruits, thyroid normal size, non-tender, without nodularity Lymph: no palpable lymphadenopathy ASSESSMENT/PLAN: Encounter Diagnoses Name Primary? Bilateral impacted cerumen Yes Plan:Findings and problems reviewed with patient. Canals cleaned recommend that she start using betamethasone as needed. Also recommend that she start using saline spray 2-3 times daily. She will return in 3-4 months. Idalia Lora PA-C 03/25/2023 2:38 PM documented in this encounter Nursing Notes * Fanny Tenorio LPN - 03/25/2023 1:29 PM EST Pt presents today for a 3-4 month follow up for cerumen removal. Pt denies any issues since her last visit. documented in this encounter Plan of Treatment Upcoming Encounters Date Type Department Care Team (Late st Contact Info) Description 04/21/2023 8:40 AM EST Office Visit Family Practice [facility] [place] [address] Dav Hargrove MD [address] [place] [address] 04/22/2023 9:00 AM EST Imaging Radiology [facility]st [facility] [place] [address] 06/16/2023 2:55 PM EST Office Visit Urogynecology [facility] [place] [address] Joaquin Johns MD [address] [place] [address] Nurse Cherelle Mattson [facility] [address] [place] [address] 07/20/2023 2:40 PM EDT Office Visit Otolaryngology [facility] [place] [address] Idalia Lora PA-C 132 [facility] [place] [address] 08/31/2023 1:30 PM EDT Office Visit Allergy/Immunology [facility] [address] [facility] [place] [address] Yordan Jones MD 200 [facility] [place] [address] 10/22/2023 10:00 AM EDT Office Visit Nephrology, [facility] 200 [facility] [place] [address] Bonnie Trevizo MD 200 [facility] [place] [address] 10/26/2023 9:30 AM EDT Office Visit Urology, [facility] [place] [address] Cristian Griffin MD 27 [facility] [address] [place] [address] Scheduled Procedures Name Priority Associated Diagnoses Date/Ti me COLONOSCOPY FLEXIBLE PROXIMAL DIAGNOSTIC Recall History of colon polyps Health Maintenance Due Date Last Done Comments COVID-19 Vaccine (2022-24 season) 2022 08/10/2020, 07/02/2020, 06/06/2020 Depression Screening [...] this encounter Medical Devices Implanted Type Area Process Development Manager Device Identifier Shelf Expiration Date Model / Serial / Lot Sureclip 16mm 235cm - [id number] Implanted:Qty: 2 on 12/10/2022 by Junior Us MD at ENDOSCOPY [facility] Stomach MICRO TECH ENDOSCOPY 10/13/2023 [id number] / / [id number] documented as of this encounter Visit Diagnoses Diagnosis Bilateral impacted cerumen- Primary Impacted cerumen documented in this encounter Advance Directives Latest [...] the patient have Health Care Power of Hris Developer? No Code Status History Code Status Date Activated Date Inactivated Comments Full Code 03/09/2023 7:16 AM 03/09/2023 9:42 AM Thi s order reflects the patients wishes and were consensually agreed upon. Question Answer Comments Discussion of Advance Directives occurred with: Not Discussed due to patient's condition Care Teams Attendant Lodging Facilities Relationship Specialty Start Date End Date Dav Hargrove MD [address] [place] [address] PCP - General Family Medicine 05/28/20 documented as of this encounter
--- OUTSIDE RECORDS SUMMARY | 2023-06-13 22:47 | External Medical Summary ---
Author Name Unknown Address Unknown Organization K01:[facility] [place] [facility] [address] [place] [address] Laboratory Report Ordering Provider Test Date Status WALTER JAVIER 04/21/2023 09:42:59 Final Observation Date Value Abnormality Reference (Units ) Status TSH 04/21/2023 09:42:59 0.87 0.27-4.20 (uIU/mL) Final Performing Location [facility] [address] [place] [address]
--- OUTSIDE RECORDS SUMMARY | 2023-06-13 22:47 | External Medical Summary | Summary of Care ---
Author Name Unknown Organization [facility] Address [address] [facility] [facility] [place] [address] Phone [phone] Care Team Providers Care Interface Designer Name Role Phone Dav Hargrove MD Primary Care Provider [phone] Reason for Visit * Reason Onset Date Comments Appointment 02/04/2023 Encounter Details Date Type Department Care Team (Late st Contact Info) Description 02/04/2023 Telephone Urogynecology [facility] [address] [place] [address] Joaquin Johns MD [address] [facility] [place] [address] Appointment Allergies Active Allergy Reactions Criticality Noted Date [...] as of this encounter (statuses as of 04/09/2023) Medications Medication Sig Dispensed Refills Start Date [...] for Nausea. 20 Tab 0 12/04/2019 Active Misc. Devices Refurbish current custom molded inserts [...] times a day. 0 07/17/2022 Active Ipratropium [place] 0.03 % Nasal Solution (Atrovent) USE 2 [...] MG Oral Tablet (Buspar)Indicatio ns:in am 0 09/25/2022 Active Omeprazole 20 MG [...] 01/04/2023 Active Atenolol 50 MG Oral Tablet (Tenormin)Indicat ions:HTN, goal below 140/90 TAKE 1 TABLET BY MOUTH ONCE DAILY 90 Tablet 2 01/20/2023 Active Pravastatin Sodium 80 MG Oral TabletIndications :Dyslipidemia, goal LDL below 130 TAKE 1 TABLET BY MOUTH ONCE DAILY 90 Tablet 2 01/20/2023 Active Furosemide 20 MG Oral Tablet (Lasix)Indication s:Diastolic dysfunction TAKE 1 TABLET BY MOUTH DAILY 90 Tablet 3 01/20/2023 Active amLODIPine Besylate 10 MG Oral Tablet (Norvasc)Indicati ons:Chronic kidney disease with symptom management only, stage 3 (moderate) (HCC),HTN, goal below 130/80 TAKE 1 TABLET BY MOUTH DAILY 90 Tablet 3 01/20/2023 Active Pilocarpine HCl 5 MG Oral Tablet (Salagen) TAKE 1 TABLET BY MOUTH IN THE MORNING AND 1 TABLET BY MOUTH AT NOON AND 1 TABLET BY MOUTH BEFORE BEDTIME 270 Tablet 3 01/20/2023 Active Famotidine 40 MG Oral Tablet (Pepcid)Indicatio ns:Gastroesophage al reflux disease TAKE 1 TABLET BY MOUTH AT BEDTIME 90 Tablet 3 01/20/2023 Active Levothyroxine Sodium 125 MCG Oral Tablet (Levoxyl)Indicati ons:Hypothyroidis m TAKE 1 TABLET BY MOUTH DAILY WITH A GLASS OF WATER 90 Tablet 3 01/20/2023 Active Losartan Potassium 100 MG Oral Tablet (Cozaar)Indicatio ns:HTN, goal below 140/90,Hypertensi ve kidney disease with stage 3a chronic kidney disease (HCC) TAKE 1 TABLET BY MOUTH DAILY 90 Tablet 3 01/20/2023 Active Gabapentin 300 MG Oral Capsule (Neurontin) TAKE 1 CAPSULE BY MOUTH 3 TIMES DAILY 270 Capsule 3 01/25/2023 Active Nitrofurantoin Macrocrystal 50 MG Oral Capsule (Macrodantin)Dorita cations:Dysuria Take 1 Capsule by mouth in the morning and 1 Capsule at noon and 1 Capsule in the evening and 1 Capsule before bedtime. Do all this for 7 days. Until gone. 28 Capsule 0 12/05/2022 3 Discontinued Fluconazole 150 MG Oral Tablet (Diflucan)Indicat ions:Vaginal itching Take 1 Tablet by mouth once for 1 dose. 1 Tablet 0 12/05/2022 3 Discontinued Nitrofurantoin Monohyd Macro 100 MG Oral Capsule (Macrobid)Indicat ions:Dysuria Take 1 Capsule by mouth in the morning and 1 Capsule before bedtime. Do all this for 10 days. With food until gone. 20 Capsule 0 12/19/2022 3 Discontinued Cephalexin 500 MG Oral Capsule Take 1 Capsule by mouth in the morning and 1 Capsule before bedtime. Do all this for 10 days. 20 Capsule 0 01/04/2023 3 Discontinued documented as of this encounter (statuses as of 04/09/2023) Active Problems Problem Noted Date Diagnosed Date [...] as of this encounter (statuses as of 04/09/2023) Resolved Problems Problem Noted Date Diagnosed Date [...] as of this encounter (statuses as of 04/09/2023) Immunizations Name Administration Dates Next Due COVID-19 mRNA, LNP-s, No Pre serve, 2-Dose Series ([employer]) 07/02/2020,06/06/2020 Pneumococcal Conjugate Vacc, 13 Valent (Prevnar) [...] encounter Miscellaneous Notes * Telephone Encounter - Jackeline Hart OSA - 02/04/2023 5:09 PM EDT Pt called to reschedule appt that was she is Hosp with UTI looking for something sooner than 03/08 will go to [place] to be seen, Please assist added to wait list both locations. Thank you documented in this encounter Plan of Treatment Upcoming Encounters Date Type Department Care Team (Late st Contact Info) Description 04/21/2023 8:40 AM EST Office Visit Family Practice [facility] [address] [address] Dav Hargrove MD [address] [place] [address] 04/22/2023 9:00 AM EST Imaging Radiology [facility]st [facility] [place] [address] [place] [address] 06/16/2023 2:55 PM EST Office Visit Urogynecology [facility] [address] [place] [address] Joaquin Johns MD [address] [place] [address] [facility] [address] [place] [address] 07/20/2023 2:40 PM EDT Office Visit Otolaryngology [facility] [place] [address] Idalia Lora PA-C [facility] [place] [address] 07/28/2023 3:00 PM EDT Office Visit Urology, [facility] 132 [place] [address] Cristian Griffin MD 27 [facility] [address] [place] [address] 08/31/2023 1:30 PM EDT Office Visit Allergy/Immunology [facility] [place] [address] [facility] [place] [address] Yordan Jones MD [address] [facility] [place] [address] 10/22/2023 10:00 AM EDT Office Visit Nephrology, [facility] [address] [place] [address] Bonnie Trevizo MD 200 [facility] [place] [address] Scheduled Procedures Name Priority Associated Diagnoses Date/Ti me COLONOSCOPY FLEXIBLE PROXIMAL DIAGNOSTIC Recall History of colon polyps Health Maintenance Due Date Last Done Comments COVID-19 Vaccine (4 - 2023-24 season) 2022 08/10/2020, 07/02/2020, 06/06/2020 Depression Screening [...] this encounter Medical Devices Implanted Type Area Analytical Lab Technician Device Identifier Shelf Expiration Date Model / Serial / Lot Sureclip 16mm 235cm - [id number] Implanted:Qty: 2 on 12/10/2022 by Junior Us MD at ENDOSCOPY [facility] Stomach MICRO TECH ENDOSCOPY 10/13/2023 [id number] / / [id number] documented as of this encounter Advance Directives [...] the patient have Health Care Power of Ton Container Filler? No Code Status History Code Status Date Activated Date Inactivated Comments Full Code 03/09/2023 7:16 AM 03/09/2023 9:42 AM Thi s order reflects the patients wishes and were consensually agreed upon. Question Answer Comments Discussion of Advance Directives occurred with: Not Discussed due to patient's condition Care Teams Interface Designer Relationship Specialty Start Date End Date Dav Hargrove MD [address] [place] [address] PCP - General Family Medicine 05/28/20 documented as of this encounter
--- OUTSIDE RECORDS SUMMARY | 2023-06-13 22:48 | External Medical Summary ---
Author Name Unknown Address Unknown Organization K01[place] [place] [address] [place] [address] Laboratory Report Ordering Provider Test Date Status WALTER JAVIER 03/15/2023 13:11:34 Final Observation Date Value Abnormality Reference (Units ) Status Color of Urine by Auto 03/15/2023 13:11:34 Yellow Colorless, Light Yellow, Yellow, Dark Yellow Final Clarity, Urine 03/15/2023 13:11:34 Cloudy Abnormal Clear Final Glucose [Mass/volume] in Urine by Automated test strip 03/15/2023 13:11:34 Negative Negative (mg/dL) Final Bilirubin.total [Presence] in Urine by Automated test strip 03/15/2023 13:11:34 Negative Negative Final Ketones [Mass/volume] in Urine by Automated test strip 03/15/2023 13:11:34 Negative Negative (mg/dL) Final Specific gravity, Urine 03/15/2023 13:11:34 1.012 1.003-1.030 Final Hemoglobin [Presence] in Urine by Automated test strip 03/15/2023 13:11:34 Trace Abnormal Negative Final pH, Urine 03/15/2023 13:11:34 7.0 5.0-7.5 (Units) Final Protein [Mass/volume] in Urine by Automated test strip 03/15/2023 13:11:34 30 Abnormal Negative (mg/dL) Final Urobilinogen [Mass/volume] in Urine by Automated test strip 03/15/2023 13:11:34 Normal Normal (mg/dL) Final Nitrite [Presence] in Urine by Automated test strip 03/15/2023 13:11:34 Negative Negative Final Leukocyte esterase [Presence] in Urine by Automated test strip 03/15/2023 13:11:34 Large Abnormal Negative Final RBC, Urine 03/15/2023 13:11:34 3-5 Abnormal 0-2 (/HPF) Final WBC, Urine 03/15/2023 13:11:34 50+ Abnormal 0-2 (/HPF) Final Bacteria [#/area] in Urine sediment by Microscopy high power field 03/15/2023 13:11:34 >200 Abnormal 0-25 (/HPF) Final Leukocyte clumps [#/area] in Urine sediment by Microscopy high power field 03/15/2023 13:11:34 Present Abnormal None (/HPF) Final Performing Location [facility] [place] [facility] [address]
--- OUTSIDE RECORDS SUMMARY | 2023-06-13 22:48 | External Medical Summary | Summary of Care ---
Author Name Unknown Organization [facility] Address [address] [place] [address] Phone [phone] Care Team Providers Care Customer Operations Associate Name Role Phone Dav Hargrove MD Primary Care Provider [phone] Reason for Visit * Reason Onset Date Comments FYI 03/11/2023 Home health visi t Encounter Details Date Type Department Care Team (Late st Contact Info) Description 03/11/2023 Telephone Family Practice [facility] [address] [place] [address] Dav Hargrove MD [address] [place] [address] FYI (Home health visit) Allergies Active Allergy Reactions Criticality Noted Date [...] as of this encounter (statuses as of 03/11/2023) Medications Medication Sig Dispensed Refills Start Date [...] Active Additional Information Patient taking differently: 8 [id number] PRN, Nausea, Reported on 02/08/2023 [facility]. Devices Refurbish current custom molded inserts - [...] times a day. 0 07/17/2022 Active Ipratropium [place] 0.03 % Nasal Solution (Atrovent) USE 2 [...] as of this encounter (statuses as of 03/11/2023) Active Problems Problem Noted Date Diagnosed Date [...] as of this encounter (statuses as of 03/11/2023) Resolved Problems Problem Noted Date Diagnosed Date [...] as of this encounter (statuses as of 03/11/2023) Immunizations Name Administration Dates Next Due COVID-19 [...] encounter Miscellaneous Notes * Telephone Encounter - Dav Hargrove MD - 03/11/2023 11:00 AM EST sent * Telephone Encounter - Haydee Vital OSA - 03/11/2023 10:49 AM EST Patient had gall bladder removed 03/05 and since procedure patient has multiple ulcers in her mouth. Could magic mouth wash be ordered and sent to pharmacy on file? Patient is very week and can barely talk because of this issue. documented in this encounter Plan of Treatment Upcoming Encounters Date Type Department Care Team (Latest Contact Info) Description 03/25/2023 11:00 AM EST Office Visit General Surgery, [facility] [address] [address] Minda Almodovar MD [address] [place] [address] 03/25/2023 2:00 PM EST Office Visit Otolaryngology [facility] [address] [address] Idalia Lora PA-C [address] [place] [address] 04/06/2023 10:15 AM EST Hospital Encounter ENDO [facility], Endoscopy Room [facility] [address] [place] [address] uHyen Marmolejo, DO [address] [place] [address] 04/06/2023 10:15 AM EST - 04/06/2023 10:45 AM EST Surgery ENDO [facility], Endoscopy Room [facility] [address] [place] [phone] Huyen Marmolejo, DO [address] [place] [address] COLONOSCOPY FLEXIBLE PROXIMAL DIAGNOSTIC 04/21/2023 8:40 AM EST Office Visit Family Practice [facility] [address] [place] [address] Dav Hargrove MD [address] [place] [address] 04/22/2023 9:00 AM EST Imaging Radiology [facility]st [facility] [address] [place] [address] 06/15/2023 9:25 AM EST Office Visit Urogynecology [facility] [address] [place] [address] Joaquin Johns MD [address] [place] [address] Nurse Cherelle Mattson Katie [address] [place] [address] 08/27/2023 10:30 AM EDT Office Visit Allergy/Immunology [facility] [place] [address] [place] [address] Yordan Jones MD 200 [facility] [place], [place] [address] 10/22/2023 10:00 AM EDT Office Visit Nephrology, [facility] 200 [facility] [place], [place] [address] Bonnie Trevizo MD 200 [facility] [place], [place] [address] 10/26/2023 9:30 AM EDT Office Visit Urology, [facility] 132 [facility] [place] [address] Cristian Griffin MD [address] [place] [address] [place] [address] Scheduled Procedures Name Priority Associated Diagnoses Date/Ti [...] this encounter Medical Devices Implanted Type Area Nuclear Medicine Chief Technologist Device Identifier Shelf Expiration Date Model / Serial / Lot Sureclip 16mm 235cm - [id number] Implanted:Qty: 2 on 12/10/2022 by Junior Us MD at ENDOSCOPY [facility] Stomach MICRO TECH ENDOSCOPY 10/13/2023 [id number] / / [id number] documented as of this encounter Advance Directives [...] the patient have Health Care Power of Coil Inspector? No Code Status History Code Status Date Activated Date Inactivated Comments Full Code 03/09/2023 7:16 AM 03/09/2023 9:42 AM Thi s order reflects the patients wishes and were consensually agreed upon. Question Answer Comments Discussion of Advance Directives occurred with: Not Discussed due to patient's condition Care Teams Customer Operations Associate Relationship Specialty Start Date End Date Dav Hargrove MD [address] [place] [address] PCP - General Family Medicine 05/28/20 documented as of this encounter
--- OUTSIDE RECORDS SUMMARY | 2023-06-13 22:48 | External Medical Summary | Summary of Care ---
Author Name Unknown Organization [facility] Address [address] [facility] [place] [address] Phone [phone] Care Team Providers Care Deep Fat Cook Fry Name Role Phone Dav Hargrove MD Primary Care Provider [phone] Reason for Visit * Reason Onset Date Comments Follow Up 03/11/2023 Post op call Encounter Details Date Type Department Care Team (Late st Contact Info) Description 03/11/2023 9:15 AM EST Scheduled Telephone General Surgery, [facility] 132 [facility] [place] [address] Matt[place], Nurse Gen Surg [facility] 132 [facility] [place] [address] Arrived Allergies Active Allergy Reactions Criticality Noted [...] Active Additional Information Patient taking differently: 8 [id number] PRN, Nausea, Reported on 02/08/2023 [facility]. Devices Refurbish current custom molded inserts [...] times a day. 0 07/17/2022 Active Ipratropium [place] 0.03 % Nasal Solution (Atrovent) USE 2 [...] Pain, Moderate. 20 Tablet 0 03/09/2023 Active documented as of this encounter (statuses [...] encounter Miscellaneous Notes * Telephone Encounter - Rex Shin MED ASSIST - 03/11/2023 8:23 AM EST PATIENT IS S/p laparoscopic cholecystectomy on 03/09/[address] Minda Almodovar Called and talked to patient's , he states she is doing ok, taking some pain meds and feels tired. Gave him call back number if she needed, and post op date. documented in this encounter Plan of Treatment Upcoming Encounters Date Type Department Care Team (Latest Contact Info) Description 03/23/2023 9:45 AM EST Office Visit General Surgery, [facility] [address] [address] Minda Amlodovar MD [address] [place] [address] 03/25/2023 2:00 PM EST Office Visit Otolaryngology [facility] [address] [place] [address] Idalia Lora PA-C [address] [place] [address] 04/06/2023 10:15 AM EST Hospital Encounter ENDO [facility], Endoscopy Room [facility] [address] [place] [phone] Huyen Marmolejo, DO [address] [place] [address] 04/06/2023 10:15 AM EST - 04/06/2023 10:45 AM EST Surgery ENDO [facility], Endoscopy Room [facility] [address] [place] [phone] Huyen Marmolejo DO [address] [place] [address] COLONOSCOPY FLEXIBLE PROXIMAL DIAGNOSTIC 04/21/2023 8:40 AM EST Office Visit Family Practice [facility] [address] [place] [address] Dav Hargrove MD [address] [place] [address] 04/22/2023 9:00 AM EST Imaging Radiology [facility] 1st [facility] [address] [place] [address] 06/15/2023 9:25 AM EST Office Visit Urogynecology [facility] [address] [place] [address] Joaquin Johns MD [address] [place] [address] Nurse Cherelle Mattson [facility] [address] [place] [address] 08/27/2023 10:30 AM EDT Office Visit Allergy/Immunology [facility] [place] [address] [place] [address] Yordan Jones MD [address] [place] [address] 10/22/2023 10:00 AM EDT Office Visit Nephrology, [facility] [place] [address] [place] [address] Bonnie Trevizo MD [address] [place] [address] 10/26/2023 9:30 AM EDT Office Visit Urology, [facility] [address] [place] [address] Cristian Griffin MD [address] [facility] [place] [address] [place] [address] Scheduled Procedures Name Priority Associated Diagnoses Date/Ti [...] this encounter Medical Devices Implanted Type Area Textbook Associate Device Identifier Shelf Expiration Date Model / Serial / Lot Sureclip 16mm 235cm - [id number] Implanted:Qty: 2 on 12/10/2022 by Junior Us MD at ENDOSCOPY [facility] Stomach MICRO TECH ENDOSCOPY 10/13/2023 [id number] / / [id number] documented as of this encounter Advance Directives [...] the patient have Health Care Power of Sheet Metal Worker? No Code Status History Code Status Date Activated Date Inactivated Comments Full Code 03/09/2023 7:16 AM 03/09/2023 9:42 AM Thi s order reflects the patients wishes and were consensually agreed upon. Question Answer Comments Discussion of Advance Directives occurred with: Not Discussed due to patient's condition Care Teams Deep Fat Cook Fry Relationship Specialty Start Date End Date Dav Hargrove MD [address] [facility] [place] [address] PCP - General Family Medicine 05/28/20 documented as of this encounter
--- OUTSIDE RECORDS SUMMARY | 2023-06-13 22:48 | External Medical Summary ---
Author Name Unknown Address Unknown Organization K01:[facility] [place] [address] [facility] [place] [address] Laboratory Report Ordering Provider Test Date Status WALTER JAVIER 03/15/2023 13:11:34 Final <10,000 colonies/ml mixed no rmal mirian Observation Date Value Abnormality Reference (Units ) Status Bacteria identified in Specimen by Culture 03/15/2023 13:11:34 [id number]^ESCHE RICHIA COLI Abnormal Final >100,000 colonies/mL Escheri judy coli Performing Location [facility] [place] [address] [facility] [place] [address] Ordering Provider Test Date Status WALTER JAVIER 03/15/2023 13:11:34 Final Observation Date Value Abnormality Reference (Units ) Status Ampicillin 03/15/2023 13:11:34 >=32 Resistant Final Ampicillin + Sulbactam 03/15/2023 13:11:34 4 Susceptible Final Cefazolin 03/15/2023 13:11:34 <=4 Susceptible Final Cefepime susceptibility 03/15/2023 13:11:34 <=1 Susceptible Final Ceftriaxone suceptibility 03/15/2023 13:11:34 <=1 Susceptible Final Ciprofloxacin 03/15/2023 13:11:34 <=0.25 Susceptible Final Due to serious side effects, the FDA has advised against using Ciprofloxacin to treat uncomplicated UTIs and respiratory tract infections unless there are no alternative treatment options. Gentamicin susceptibility 03/15/2023 13:11:34 <=1 Susc eptible Final Nitrofurantoin susceptibility 03/15/2023 13:11:34 <=16 Susceptible Final Piperacillin + Tazobactamsusceptibility 03/15/2023 13:11:34 <=4 Susceptible Final TMP-SMZ susceptibility 03/15/2023 13:11:34 <=20 Suscept ible Final Test: Culture, Urine, Quanti tative
Specimen Source: Urine, Clean Catch
Specimen Type: Urine
Specimen Date: 03/15/2023 1:11 PM
Result Date: 03/17/2023 12:36 PM
Result Status: Final result
Abnormal: Yes
Resulting Lab: [facility] [place]
[address]
[place] [address]

CULTURE

>100,000 colonies/mL Escherichia coli (Abnormal)

<10,000 [...] alternative treatment options.

null Performing Location [facility] [place] [address] [facility] [place] [address]
--- OUTSIDE RECORDS SUMMARY | 2023-06-13 22:48 | External Medical Summary | Summary of Care ---
Author Name Unknown Organization [facility] Address [address] [place] [address] Phone [phone] Care Team Providers Care Patternmaker Metal Name Role Phone Dav Hargrove MD Primary Care Provider [phone] Reason for Referral * Evaluate & Treat - Unlimited Visits (Within 30 days (routine)) - Authorized Specialty Diagnoses / Procedures Referred By Contac t Referred To Contact Urology Diagnoses Recurrent UTI Joaquin Johns MD [address] [place] [address] Referral ID Status Reason Start Date Expiration Date Visits Requested Visits Authorized [id number] Authorized Specialty Services Required [phone] Question Answer Referral Priority Within 30 days (routine) Where should this appointment be scheduled? [facility] What is the patient being referred for? Other conditions - recurrent UTI Comments Urology department attempted to make an appointment with patient in 2021, unsuccessful in reaching patient. Infectious disease wanted urology to evaluate for structural reasons for recurrent UTI's Reason for Visit * Reason Comments NEW PATIENT * Evaluate & Treat - Unlimited Visits (Within 10 days (routine)) - Authorized Specialty Diagnoses / Procedures Referred By Contac t Referred To Contact WIRE STITCHER MACHINE - Urogynecology / Gynecology Urology Diagnoses Dysuria Dariana Fish CRNP [address] [place] [address] Referral ID Status Reason Start Date Expiration Date Visits Requested Visits Authorized [id number] Authorized Specialty Services Required 12/31/[phone] Encounter Details Date Type Department Care Team (Late st Contact Info) Description 03/08/2023 1:35 PM EST Office Visit Urogynecology Sanaz Mattson [address] [place] [address] Joaquin Johns MD [address] [place] [address] Nurse Cherelle Mattson Katie [address] [place] [address] Recurrent UTI*; Mixed incontinence urge and stress; Atrophic vaginitis; Dysuria [R30.0] Allergies Active Allergy Reactions Criticality Noted Date [...] as of this encounter (statuses as of 03/08/2023) Medications Medication Sig Dispensed Refills Start Date [...] Active Additional Information Patient taking differently: 8 [id number] PRN, Nausea, Reported on 02/08/2023 [facility] [place]. Devices Refurbish current custom [...] times a day. 0 07/17/2022 Active Ipratropium [place] 0.03 % Nasal Solution (Atrovent) USE 2 [...] mg tabs. 270 Capsule 1 09/10/2022 Active Additional Information Patient not taking.Reported on 02/09/2023 busPIRone HCl 7.5 MG Oral Tablet (Buspar)Indication [...] TIMES DAILY 270 Capsule 3 01/25/2023 Active Cephalexin 500 MG Oral Capsule (Keflex) Take 1 Capsule by mouth in the morning and 1 Capsule before bedtime. For 7 days. 0 02/04/2023 Active documented as of this encounter (statuses as of 03/08/2023) Active Problems Problem Noted Date Diagnosed Date [...] as of this encounter (statuses as of 03/08/2023) Resolved Problems Problem Noted Date Diagnosed Date [...] as of this encounter (statuses as of 03/08/2023) Immunizations Name Administration Dates Next Due COVID-19 mRNA, LNP-s, No Pre serve, 2-Dose Series (Memamp) 07/02/2020,06/06/2020 Pneumococcal Conjugate Vacc, 13 Valent (Prevnar) [...] Pressure - - Pulse - - Temperature - - Respiratory Rate - - Oxygen Saturation - - Inhaled Oxygen Concentration - - Weight 85.3 kg (188 lb) 03/08/2023 1:38 PM EST Height - - Body Mass Index 29.44 12/07/2022 1:36 PM EDT documented in this encounter Progress Notes * Joaquin Johns MD - 03/08/2023 1:30 PM EST Mary Dyer is a 77 year old female P 2 here for evaluation of dysuria. Referred by DEVYN Amin. Mary Dyer complains of recurrent UTI's. She states having at least 12 UTI's this past year. She was recently admitted to [facility] for UTI sepsis. She was initially treated with IV Zosyn, thenceftriaxone, and discharged on oral Keflex. Urine culture was positive for E coli, smith sensitive. Today, patient denies dysuria or UTI symptoms Her history is complex with chronic c diff colitis, she was taking oral vancomycin for several years. She recently stopped the oral vancomycin. She also has history of Breast Cancer and was told notto use topical vaginal estrogen cream. Patient was seen by Infectious Disease in 2019 and according to the ID notes, ID wanted Urology to rule out structural causes of her recurrent UTI's. According to telephone encounters, it appeared that Urology attempted to reach out to the patient to have a Urology appointment, they left phone messages and sent Letters, but were unsuccessful. Urinary: Leakage: mixed Has leakage daily Wears pads: yes She denies a sense of incomplete bladder emptying. Prior/current treatment include: none UTI: She states she has had over four urinary tract infections in the past year Voiding detail: Daytime frequency: every 1-2 hours Urgency yes Nocturia:3-4x Hesitancy no Straining no Hematuria no Postvoid dribbling no Postvoid urgency no Manual reduction no Drinks: 2 servings of Soda daily Prolapse: She denies a palpable bulge. GI: Bowel habits: normal bowel movement She denies fecal incontinence. Prior/ current treatments include: none Gynecologic history: No prior gynecologic history. 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 Surgical History: Past Surgical History: Procedure Laterality Date ANESTHESIA FOR CAT OR MRI SCAN N/A 01/14/2023 ANESTHESIA FOR NON-INVASIVE IMAGING (MRI OR CT) performed by In And Out Surgery [facility] at OR [facility] ARTHROPLASTY KNEE TOTAL Bilateral 2009 L, 2010 R BIOPSY OF BREAST, OPEN Left 05/23/2014 benign-nipple surgery BX LYMPH NODE DEEP AXIL 03/14/2013 03/14/2013 Left axillary lymph node dissection.dX: metastatic carcinoma seen in 16 & 21 examinated left lymph nodes Placement of right subclavian venous Port-A-Cath 03/14/13 Dr. Almodovar at [facility] [employer] Yvette Kaur PA-C CERVICAL HEMILAMINECTOMY cage CHEMOTHERAPY 2012 left breast CA COLONOSCOPY W/ BIOPSY (RECTUM) 06/27/2009 await path & aspirate results, diverticulosis & Ext Hemmorrhoids COLONOSCOPY W/ LESION REMOVAL, SNARE 07/30/2006 repeat 5 yrs repeat in 5 years COLONOSCOPY, DIAGNOSTIC (RECTUM) 09/21/2014 adenomatous polyps, diverticulosis, repeat 5 yrs/COLONOSCOPY FLEXIBLE PROXIMAL DIAGNOSTIC performedby Bryn Christiansen MD at ENDOSCOPY [facility] COLONOSCOPY, DIAGNOSTIC (RECTUM) 09/13/2019 sigmoid diverticulosis/biopsies show adenomatous polyps/recall 2 years/COLONOSCOPY FLEXIBLE PROXIMAL DIAGNOSTIC performed by Whit Martínez MD at ENDOSCOPY [facility] COLONOSCOPY, DIAGNOSTIC (RECTUM) N/A 09/01/2022 benign adenomatous polyps, diverticulosis, repeat 3 yrs / COLONOSCOPY FLEXIBLE PROXIMAL DIAGNOSTIC performed by Walt Muniz MD at ENDOSCOPY [facility] CYSTOSCOPY 11/19/2008 with sounds CYSTOSCOPY 09/24/2006 EGD, FLEXIBLE, DIAGNOSTIC 04/08/09 done normal exam EGD, FLEXIBLE, DIAGNOSTIC 03/30/2012 UPPER GI ENDOSCOPY DIAGNOSTIC performed by Walt Muniz MD at ENDOSCOPY [facility] EGD, FLEXIBLE, DIAGNOSTIC 07/06/2017 KAT - normal results / [facility] EGD, FLEXIBLE, DIAGNOSTIC 08/30/2020 Normal scope / biopsies from your duodenum and stomach returned normal, showed reflux / ESOPHAGOGASTRODUODENOSCOPY (EGD), FLEXIBLE, TRANSORAL, DIAGNOSTIC performed by Whit Martínez MD at ENDOSCOPY [facility] EGD, W/ENDOSCOPIC US 12/10/2022 gastric polyp/sludge and polyp gallbladder/biopsies normal/ESOPHAGOGASTRODUODENOSCOPY (EGD), FLEXIBLE, TRANSORAL, ENDOSCOPIC ULTRASOUND performed by Junior Us MD at ENDOSCOPY [facility] EXPLORATION OF NIPPLE Left 05/23/2014 05/23/2014 NIPPLE EXPLORATION Dx no evidence of invasive carcinoma , proliferative fibrocystic changes Left performed by Minda Almodovar MD at OR [facility] INFORMATION Low back surgery - fusion INFORMATION 05/13/2008 neck surgery INFORMATION cervical fusions - has had several surgeries. INFORMATION Right 12/29/2021 total shoulder INTRANASAL BIOPSY ? 1999- Nasal polypectomy MISCELLANEOUS ORDER ([facility] ONLY) Right 10/07/2016 RLL cyst removed Holden--eye MOHS, 1ST STAGE; FACE, HANDS, FEET, NERVE Left 10/02/2020 MRI GUIDED BREAST BX LEFT Left 03/06/2013 Benign PUNCTURE DRAINAGE BREAST CYST Left 01/03/2013 abnormal cells RADIATION THERAPY Left 11/09/2013 left breast CA REMOVAL OF EYELID LESION Bilateral 05/25/2016 Dr. Hatch REMOVE CATARACT, INSERT LENS PROSTH 07/06/[address] Pham REMOVE CATARACT, INSERT LENS PROSTH 07/20/2012 OD-Dr. Pham REPAIR OF LEG FLEXOR TENDON, EACH Right 10/19/2019 REPAIR FLEXOR TENDON LEG PRIMARY WITHOUT GRAFT performed by Nuha Dsouza DPM at OR [facility] REVISE UPPER EYELID/EXCESS SKIN Bilateral 11/07/2014 [place] US GUIDED BREAST BIOPSY LEFT Left 01/03/2013 malignant OB History 2 Para 2 Term 2 AB Living SAB IAB Ectopic Multiple Live Births Weight of largest baby: 9 Vaginal deliveries: 2 C/S: 0 Allergies: Review of patient's allergies indicates: Allergen Reactions Flagyl [Metronidazole Hcl] Hives Baclofen Neuro complications (Please comment) Speech issues, ect Other reaction(s): unknown Ciprofloxacin Rash +pain in feet +"almost " Other reaction(s): unknown Macrobid [Nitrofurantoin] Rash - pt denies Metronidazole Other reaction(s): hives Sulfa Antibiotics Hives Zolpidem Other reaction(s): delusional Protonix [Pantoprazole Sodium Sesquihydrate] Other (Please comment) headache Active Medications: Current Outpatient Medications Medication Sig Dispense Refill [...] hindfoot varus post (lateral) 1 Each 0 Fluticasone Propionate 50 MCG/ACT Nasal Suspension (Flonase) [...] by mouth 3 times a day. Ipratropium [place] 0.03 % Nasal Solution (Atrovent) USE 2 SPRAYS IN BOTH NOSTRILS 4 TIMES DAILY 150 mL 3 busPIRone HCl 7.5 MG Oral Tablet (Buspar) [...] MOUTH 3 TIMES DAILY 270 Capsule 3 Cephalexin 500 MG Oral Capsule (Keflex) Take 1 Capsule by mouth in the morning and 1 Capsule beforebedtime. For 7 days. Methocarbamol 500 MG Oral Tablet (Robamol) Take 1 Tablet by mouth in the morning and 1 Tablet at noon and 1 Tablet in the evening and 1 Tablet before bedtime. (Patient not taking: Reported on 02/08/2023) Fluocinonide 0.05 % External Gel Apply topically to affected area 2 times a day. (Patient not taking: Reported on 02/08/2023) Gabapentin 100 MG Oral Capsule (Neurontin) Take 1 Capsule by mouth in the morning and 1 Capsule at noon and 1 Capsule before bedtime. With 300 mg tabs. (Patient not taking: Reported on 02/09/2023) 270 Capsule 1 No current facility-administered medications for this visit. Social History: Social History Socioeconomic History Marital status: Spouse name: Edward Number of children: 2 Tobacco Use Smoking status: Never Smokeless tobacco: Never Tobacco comments: no passive smoke Vaping Use Vaping Use: Never used Substance and Sexual Activity Alcohol use: No Drug use: No Sexual activity: Yes Partners: Male Social History Narrative [employer] [place] [place] INFORMATION ENVIRONMENTAL HISTORY: Type of Home: Two Story Type of Heating System: Heat pump Air Conditioning: Yes Central Basement: Finished, Carpeted rooms, Dampness, Dehumidifier; occasional water problems, but No evidence mold, mildew Home have cockroaches: No Irritants in the home: Scented Candles Patient's bedroom location: Floor: second Type of golden: Carpeting Beds: Number: 1 Type of beds: Mattress and Box spring Pillows: Number: 2 Type of pillows: Synthetic (hypoallergenic, polyester) Bedroom contains: Minimal items Pets: 1 cat(s) Lives on a farm: No 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 Entered by: Don Vasquez MD 06/04/2006 Social Determinants of Health Food Insecurity: No Food Insecurity (12/12/2021) Hunger Vital Sign Worried About Running Out of Food in the Last Year: Never true Ran Out of Food in the Last Year: Never true Family History: Family History Problem Relation Age of Onset Hypertension Mother upper 80s Dementia Mother Other (poor circulation) Mother Other (diabetic) Father Cancer No significant family history Heart Disorder No significant family history Stroke No significant family history Thyroid Disorder No significant family history Eye Problems No significant family history Denies FH: AMD, Glaucoma, RD's or Blindness Breast Cancer No significant family history CONSTITUTIONAL ROS: No change in weight, No weakness and No fatigue NECK ROS: No lumps or masses, PULMONARY ROS: No recent change in breathing CARDIOVASCULAR ROS: No chest pain, No shortness of breath and No dyspnea on exertion BREAST ROS: history of breast cancer GASTROINTESTINAL ROS: No abdominal pain,as per HPI GENITO-URINARY FEMALE ROS: As per HPI MSK/EXTREMITIES ROS: displacement of cervical intervertebral disc SKIN/INTEGUMENTARY ROS: No rash and No itching NEUROLOGICAL ROS: Normal balance No weakness PSYCHIATRIC ROS: no depression and no anxiety Documentation Improvement Specialist Documentation: Provider requested hairmasters manager Name of Documentation Improvement Specialist: Glenys Hart Weight 85.3 kg (188 lb), not currently . Blood pressure %lake are not available for patients who are 18 years or older. Body mass index is 29.44 kg/m. EXAM: Well developed well nourished female in no apparent distress. Alert oriented x3 HEENT: NC AT HEART: Normal peripheral pulse, edema neg THYROID: no obvious neck mass LUNG: No increased respiratory effort ABDOMEN: Soft, NT, ND, no masses PELVIC EXAM: Ext. Gen: Normal external female genitalia, no vulvar lesions. Clitoris, labia, minor vestibular glands and urethral meatus appear normal. Urethra and bladder palpated non-tender with no masses and no expressible exudate. Vagina atrophic without lesions. Cervix: nl BIMANUAL EXAM: no cervical motion tenderness, the uterus is smooth, mobile, non tender and of normal size. No adnexal masses or tenderness elicited. PLASTIC CUTTER: positive Levator ani muscle strength 2. No tenderness elicited on palpation Rectovaginal exam: perianal area normal, anus normal No prolapse The following data points/ labs were reviewed: Results for orders placed or performed in visit on 02/08/23 BASIC METABOLIC PANEL Result Value Ref Range BUN 7 6 - 20 mg/dL Creatinine 1.4 (H) 0.5 - 1.0 mg/dL Estimated Glomerular Filtration Rate 38 (L) >=60 mL/min Sodium 141 135 - 146 mmol/L Potassium 3.8 3.5 - 5.1 mmol/L Chloride 103 98 - 107 mmol/L CO2 28 22 - 32 mmol/L Anion Gap 10 7 - 15 mmol/L Glucose 102 70 - 120 mg/dL Calcium 9.4 8.4 - 10.2 mg/dL *Note: Due to a large number of results and/or encounters for the requested time period, some results have not been displayed. A complete set of results can be found in Results Review. PVR: 65 ml via bladder scan Records/ Imaging/ Results reviewed include: infectious disease notes, urology notes Impression: This is a 77 year old with: Recurrent UTI (Primary) Mixed incontinence urge and stress Atrophic vaginitis Recurrent UTI: Per ID notes from 2019, urology referral to rule out structural reasons. Will re-refer No cystocele on exam. Mixed incontinence. KEIRY was easily demonstrated on exam. We reviewed therapy options including Kegel exercises, incontinence ring pessary, mid-urethral sling. All questions answered. She will think about it. Atrophy: I reviewed the medical literature that has shown that topical estrogen cream can reduce recurrent UTI. I also reviewed recent VICTOR MANUEL study that did not show any increased risk with topical vaginal estrogen in patients with history of breast cancer. Risks and benefits reviewed. All questions answered. She will think about it. Joaquin Johns MD 03/08/2023 1:31 PM I spent a total of 45 minutes on the date of service in preparation, delivery, and documentation ofthe care provided to Mary Dyer excluding any time spent in the performance of separately billed services. documented in this encounter Nursing Notes * Delma Alves MED ASSIST - 03/08/2023 1:40 PM EST Pt here for reoccuring UTIs. Had 4 UTIs from 12/31/2022 until 02/04/2023. Denies pain or bleeding. No UTI symptoms as of today. Pt denies having UTI symptoms with any occurrence. documented in this encounter Plan of Treatment Upcoming Encounters Date Type Department Care Team (Latest Contact Info) Description 03/09/2023 8:00 AM EST Hospital Encounter OR [facility], Operating Room, [facility] - 4th Floor [address] [place] [address] Minda Almodovar MD [address] [place] [address] 03/09/2023 8:00 AM EST - 03/09/2023 10:06 AM EST Surgery OR [facility], Operating Room, [facility] - 4th Floor [address] [place] [address] Minda Almodovar MD [address] [place] [address] LAPAROSCOPIC CHOLECYSTECTOMY 03/23/2023 9:45 AM EST Office Visit General Surgery, [facility] [address] [place] [address] Minda Almodovar MD [address] [place] [address] 03/25/2023 2:00 PM EST Office Visit Otolaryngology [facility] [address] [place] [address] Idalia Lora PA-C [address] [place] [address] 04/06/2023 10:15 AM EST Hospital Encounter [facility], Endoscopy Room [facility] [address] [place] [address] Huyen Marmolejo, DO [address] [place] [address] 04/06/2023 10:15 AM EST - 04/06/2023 10:45 AM EST Surgery ENDO [facility], Endoscopy Room [facility] [address] [place] [id number] Huyen Marmolejo, DO [address] [place] [address] COLONOSCOPY FLEXIBLE PROXIMAL DIAGNOSTIC 04/21/2023 8:40 AM EST Office Visit Family Practice [facility] [address] [place] [address] Dav Hargrove MD [address] [place] [address] 04/22/2023 9:00 AM EST Imaging Radiology [facility] [address] [place] [address] 06/15/2023 9:25 AM EST Office Visit Urogynecology [facility] [address] [place] [address] Joaquin Johns MD [address] [place] [address] Nurse Cherelle Mattson [facility] [address] [place] [address] 08/27/2023 10:30 AM EDT Office Visit Allergy/Immunology [facility] [place] [address] [place] [address] Yordan Jones MD [address] [facility] [place], [place] [address] 10/22/2023 10:00 AM EDT Office Visit Nephrology, [facility] [address] [facility] [place], [place] [address] Bonnie Trevizo MD [address] [facility] [place], [place] [address] 10/26/2023 9:30 AM EDT Office Visit Urology, [facility] [address] [facility] [place] [address] Cristian Griffin MD [address] [place] [address] [place] [address] Scheduled Procedures Name Priority Associated Diagnoses Date/Ti me LAPAROSCOPIC CHOLECYSTECTOMY Gallbladder polyp 03/09/2023 8:00 AM EST COLONOSCOPY FLEXIBLE PROXIMAL DIAGNOSTIC Diarrhea, unspecified type History of Clostridioides difficile infection 04/06/2023 10:15 AM EST COLONOSCOPY FLEXIBLE PROXIMAL DIAGNOSTIC Recall History of colon polyps Scheduled Referrals Name Type Priority Associated Diagnoses Orde r Schedule UROLOGY REFERRAL OP Referral Within 30 da ys (routine) Recurrent UTI Ordered: 03/08/2023 Health Maintenance Due Date Last Done Comments [...] this encounter Medical Devices Implanted Type Area Drycleaner Device Identifier Shelf Expiration Date Model / Serial / Lot Sureclip 16mm 235cm - [id number] Implanted:Qty: 2 on 12/10/2022 by Junior Us MD at ENDOSCOPY [facility] Stomach MICRO TECH ENDOSCOPY 10/13/2023 [id number] / / [id number] documented as of this encounter Visit Diagnoses Diagnosis Recurrent UTI- Primary Urinary tract infection, site not specified Mixed incontinence urge and stress Mixed incontinence urge and stress (male)(female) Atrophic vaginitis Postmenopausal atrophic vaginitis Dysuria [R30.0] Dysuria Gallbladder polyp Cholesterolosis of gallbladder Diarrhea, unspecified type History of Clostridioides difficile infection documented in this encounter Care Teams Patternmaker Metal Relationship Specialty Start Date End Date Dav Hargrove MD [address] [facility] [place] [address] PCP - General Family Medicine 05/28/20 documented as of this encounter
--- OUTSIDE RECORDS SUMMARY | 2023-06-13 22:48 | External Medical Summary ---
Author Name Unknown Address Unknown Organization : Laboratory Report Ordering Provider Test Date Status AALIYAH QUARLES 03/09/2023 07:48:05 Final Observation Date Value Abnormality Reference (Units ) Status Glucose Point of Care 03/09/2023 07:48:05 90 70-120 (mg/dL) Final Performing Location
--- OUTSIDE RECORDS SUMMARY | 2023-06-13 22:48 | External Medical Summary | Summary of Care ---
Author Name Unknown Organization [facility] Address [address] [place] [address] Phone [phone] Care Team Providers Care Material Mixer Name Role Phone Dav Hargrove MD Primary Care Provider [phone] Reason for Visit * Reason Onset Date Comments FYI 03/11/2023 Home health visi t Encounter Details Date Type Department Care Team (Late st Contact Info) Description 03/11/2023 Telephone Family Practice [facility] [address] [place] [id number] [...] Active Additional Information Patient taking differently: 8 [id number] PRN, Nausea, Reported on 02/08/2023 [facility]. Devices Refurbish current custom molded inserts - [...] times a day. 0 07/17/2022 Active Ipratropium [place] 0.03 % Nasal Solution (Atrovent) USE 2 [...] Split, I IV3, With Preserve, Inj 12/18/2014,02/09/2014,02/13/2013,12/16,01/16/2011,01/06/2010,12/21/2008 ,02/10/2008,02/03/2006,03/02/2005,11/09/2002,01/12/2002,02/14/2001 Seasonal Influenza, Trivalen t, Adjuvanted, 65+ yrs [...] encounter Miscellaneous Notes * Telephone Encounter - Victorina Peña LPN - 03/11/2023 3:13 PM EST Called [facility] and spoke with Idalia. Informer her that [facility] no longer does compound meds. But that [facility]. Informed that we did message the pt to see if that will be okay before we send a script in. Idalia stated that she will also reach out to the pt's . * Telephone Encounter - Dav Hargrove MD [...] 11:00 AM EST Office Visit General Surgery, [facility] [address] [place] [address] Minda Almodovar MD [address] [place] [address] 03/25/2023 2:00 PM EST Office Visit Otolaryngology [facility] [address] [place] [address] Idalia Lora PA-C [address] [place] [address] 04/06/2023 10:15 AM EST Hospital Encounter ENDO [facility], Endoscopy Room [facility] [address] [place] [id number] Huyen Marmolejo, DO [address] [place] [address] 04/06/2023 10:15 AM EST - 04/06/2023 10:45 AM EST Surgery ENDO [facility], Endoscopy Room [facility] [address] [place] [phone] Huyen Marmolejo, DO [address] [place] [address] COLONOSCOPY FLEXIBLE PROXIMAL DIAGNOSTIC 04/21/2023 8:40 AM EST Office Visit Family Practice [facility] [address] [place] [address] Dav Hargrove MD [address] [place] [address] 04/22/2023 9:00 AM EST Imaging Radiology [facility] [address] [place] [address] 06/15/2023 9:25 AM EST Office Visit Urogynecology [facility] [address] [place] [address] Joaquin Johns MD [address] [place] [address] [facility] [address] [place] [address] 08/27/2023 10:30 AM EDT Office Visit Allergy/Immunology [facility] [address] [facility] [place] [place] [address] Yordan Jones MD [address] [facility] [place] [address] 10/22/2023 10:00 AM EDT Office Visit Nephrology, [facility] [address] [facility] [place] [address] Bonnie Trevizo MD [address] [facility] [place] [address] 10/26/2023 9:30 AM EDT Office Visit Urology, [facility] [address] [place] [address] Cristian Griffin MD [address] [address] [place] [address] Scheduled Procedures Name Priority Associated Diagnoses Date/Ti [...] this encounter Medical Devices Implanted Type Area Tallier Device Identifier Shelf Expiration Date Model / Serial / Lot Sureclip 16mm 235cm - [id number] Implanted:Qty: 2 on 12/10/2022 by Junior Us MD at ENDOSCOPY [facility] Stomach MICRO TECH ENDOSCOPY 10/13/2023 [id number] / / [id number] documented as of this encounter Advance Directives [...] the patient have Health Care Power of Paint Stock Clerk? No Code Status History Code Status Date Activated Date Inactivated Comments Full Code 03/09/2023 7:16 AM 03/09/2023 9:42 AM Thi s order reflects the patients wishes and were consensually agreed upon. Question Answer Comments Discussion of Advance Directives occurred with: Not Discussed due to patient's condition Care Teams Material Mixer Relationship Specialty Start Date End Date Dav Hargrove MD [address] [place] [address] PCP - General Family Medicine 05/28/20 documented as of this encounter
--- OUTSIDE RECORDS SUMMARY | 2023-06-13 22:48 | External Medical Summary | Summary of Care ---
Author Name Unknown Organization [facility] Address [address] [address] Phone [phone] Care Team Providers Care Payroll Processor Name Role Phone Dav Hargrove MD Primary Care Provider [phone] Reason for Visit * Auth/Cert Specialty Diagnoses / Procedures Referred By Heber gleason Referred To Contact Diagnoses Gallbladder polyp Gallbladder polyp [K82.4] Procedures LAPAROSCOPY; CHOLECYSTECTOMY LAPAROSCOPIC CHOLECYSTECTOMY Referral ID Status Reason Start Date Expiration Date Visits Re quested Visits Authorized [id number] Encounter Details Date Type Department Care Team (Latest Contact Info) Description 03/09/2023 7:02 AM EST - 03/09/2023 11:56 AM EST Hospital Encounter OR [facility], Operating Room, [facility] - 4th Floor [address] [place] [id number] Minda Almodovar MD [address] [facility] [place] [address] Discharge Disposition: Home - Self Care Allergies Active Allergy Reactions Criticality Noted Date [...] as of this encounter (statuses as of 03/10/2023) Medications Medication Sig Dispensed Refills Start Date End Date Status ASPIRIN 81 MG PO TABS one by mouth daily 0 Active Cyanocobalamin (B-12) 100 MCG TABS Take 1 Tab by mouth daily. In AM 0 Active Multiple Vitamins-Mineral s (MULTIVITAL-M) Tablet Take 1 Tablet by mouth every afternoon. 0 Active Calcium Carb-Cholecalcif jose elias (CALCIUM + D3) 600-200 MG-UNIT per tablet [...] Active Additional Information Patient taking differently: 8 [id number] PRN, Nausea, [place] [facility] [place] Refurbish current custom molded inserts - [...] Active traMADol HCl 50 MG Oral Tablet (Ultram)Indicati ons:Lymphedema of left upper extremity Take 2 Tablets by mouth every 6 hours as needed for Pain, Severe. 120 Tablet 2 3 Active tiZANidine HCl 2 MG Oral Tablet (Zanaflex)Indica tions:as needed Take by mouth 3 times a day. 0 3 Active Ipratropium [place] 0.03 % Nasal Solution (Atrovent) USE 2 [...] Active busPIRone HCl 7.5 MG Oral Tablet (Buspar)Indicati ons:in am 0 3 Active Omeprazole 20 MG Oral Capsule Delayed Release (PriLOSEC)Indica tions:Gastroesop hageal reflux disease with esophagitis without hemorrhage Take 1 Capsule by mouth in the morning and 1 Capsule in the evening. 180 Capsule 3 3 Active Atenolol 50 MG Oral Tablet (Tenormin)Indica tions:HTN, goal below 140/90 TAKE 1 TABLET BY MOUTH ONCE DAILY 90 Tablet 2 3 Active Pravastatin Sodium 80 MG Oral TabletIndication s:Dyslipidemia, goal LDL below 130 TAKE 1 TABLET BY MOUTH ONCE DAILY 90 Tablet 2 3 Active Furosemide 20 MG Oral Tablet (Lasix)Indicatio ns:Diastolic dysfunction TAKE 1 TABLET BY MOUTH DAILY 90 Tablet 3 3 Active amLODIPine Besylate 10 MG Oral Tablet (Norvasc)Indicat ions:Chronic kidney disease with symptom management only, stage 3 (moderate) (HCC),HTN, goal below 130/80 TAKE 1 TABLET BY MOUTH DAILY 90 Tablet 3 3 Active Pilocarpine HCl 5 MG Oral Tablet (Salagen) TAKE 1 TABLET BY MOUTH IN THE MORNING AND 1 TABLET BY MOUTH AT NOON AND 1 TABLET BY MOUTH BEFORE BEDTIME 270 Tablet 3 3 Active Famotidine 40 MG Oral Tablet (Pepcid)Indicati ons:Gastroesopha geal reflux disease TAKE 1 TABLET BY MOUTH AT BEDTIME 90 Tablet 3 3 Active Levothyroxine Sodium 125 MCG Oral Tablet (Levoxyl)Indicat ions:Hypothyroid ism TAKE 1 TABLET BY MOUTH DAILY WITH A GLASS OF WATER 90 Tablet 3 3 Active Gabapentin 300 MG Oral Capsule (Neurontin) TAKE 1 CAPSULE BY MOUTH 3 TIMES DAILY 270 Capsule 3 3 Active Restasis 0.05 % Ophthalmic Emulsion Instill 1 Drop into both eyes in the morning and 1 Drop before bedtime. 0 3 Active oxyCODONE-Acetam inophen 5-325 MG Oral Tablet (Percocet) Take 1 Tablet by mouth every 4 hours as needed for Pain, Moderate. 20 Tablet 0 3 Active Nitrofurantoin Macrocrystal 50 MG Oral Capsule (Macrodantin)Ind ications:Dysuria Take 1 Capsule by mouth in the morning and 1 Capsule at noon and 1 Capsule in the evening and 1 Capsule before bedtime. Do all this for 7 days. Until gone. 28 Capsule 0 3 03/09/20 23 Discontinued Fluconazole 150 MG Oral Tablet (Diflucan)Indica tions:Vaginal itching Take 1 Tablet by mouth once for 1 dose. 1 Tablet 0 3 03/09/20 23 Discontinued Nitrofurantoin Monohyd Macro 100 MG Oral Capsule (Macrobid)Indica tions:Dysuria Take 1 Capsule by mouth in the morning and 1 Capsule before bedtime. Do all this for 10 days. With food until gone. 20 Capsule 0 3 03/09/20 23 Discontinued Cephalexin 500 MG Oral Capsule (Keflex) Take 1 Capsule by mouth in the morning and 1 Capsule before bedtime. For 7 days. 0 3 03/09/20 23 Discontinued([facility] Clean Up) documented as of this encounter (statuses as of 03/10/2023) Active Problems Problem Noted Date Diagnosed Date [...] as of this encounter (statuses as of 03/10/2023) Resolved Problems Problem Noted Date Diagnosed Date [...] as of this encounter (statuses as of 03/10/2023) Immunizations Name Administration Dates Next Due COVID-19 mRNA, LNP-s, No Pre serve, 2-Dose Series (Impact) 07/02/2020,06/06/2020 Pneumococcal Conjugate Vacc, 13 Valent (Prevnar) [...] Sign Reading Time Taken Comments Blood Pressure 108/62 03/09/2023 11:50 AM EST Pulse 71 03/09/2023 11:50 AM EST Temperature 36.2 C (97.2 F) 03/09/2023 11:[address] Respiratory Rate 16 03/09/2023 11:50 AM EST Oxygen Saturation 96% 03/09/2023 11:50 AM EST Inhaled Oxygen Concentration - - Weight 85.3 kg (188 lb) 03/09/2023 7:15 AM EST Height 170.2 cm (5' 7") 03/09/2023 7:15 AM EST Body Mass Index 29.44 03/09/2023 7:15 AM EST documented in this encounter Discharge Instructions * Discharge Instr - AVS* Minda Almodovar MD - 03/09/2023 7:48 AM EST Instructions for: Laparoscopic Cholecystectomy INCISION CARE: If present, remove any outer dressing(s) in 24 hours. The incision(s) may be sealed with renzo, askin adhesive (Dermabond), or covered with white adhesive tapes known as steri-strips. Either way there is no need to cover up the incisions again with gauze. SHOWER: You may shower 24 hours after surgery and get the incision(s) or steri-strips wet with soapy water and gently pat them dry. If the steri-strips come off in the shower, do not become concerned. If they are still in place 10 days after surgery, you may remove them. PAIN MEDICATION: You will be given a prescription for a narcotic pain medication (usually Vicodin or Percocet). Options for non-constipating pain medications include products that include ibuprofen or Tylenol. To combat constipation, you may take over the counter laxatives, fiber therapy, or prune juice. COMMON COMPLAINTS: Shoulder pain and gas pains from the carbon dioxide used during the procedure is common. Your body absorbs this gas naturally over a 48-72 hour period. Tylenol (Acetaminophen) or Ibuprofen (Motrin) is usually sufficient to relieve this discomfort. documented in this encounter Progress Notes * Minda Almodovar MD - 03/09/2023 11:45 AM EST [address] [address] OUTPATIENT SURGERY DISCHARGE SUMMARY NOTE Name: Mary Dyer Location: [facility]/ID Date: 03/09/2023 Time: 11:45 AM Surgery Date: 03/09/2023 Procedure: Procedure(s): LAPAROSCOPIC CHOLECYSTECTOMY N/A Surgeon: Surgeon(s): Minda Almodovar MD Thacker, Christopher, MD Discharge Diagnosis: lap cholecystectomy After examination of this patient, I have determined she is ready for discharge to home when the patient meets criteria. Discharge instructions were given to the patient. documented in this encounter H&P Notes * Minda Almodovar MD - 03/09/2023 7:48 AM EST H&P from today reviewed. No changes to history or physical noted. Exam: Cor: S1S2 RRR no murmurs. Lungs: clear bilaterally. For lap cholecystectomy today. Consent signed. Postop instructions reviewed with patient. Minda Almodovar M.D. Source Note - Hank Siddiqui MD - 03/09/2023 7:41 AM EST HISTORY AND PHYSICAL EXAMINATION - General Surgery [facility] [address] Name: Mary Dyer Location: [facility]/OR Date: 03/09/2023 Time: 7:41 AM HISTORY OF PRESENT ILLNESS: Mary Dyer is a 77 year old female who presents for scheduled surgery. No recent illness. No changes to medicines or allergies. She has been taking her 81 mg aspirin. No questions or concerns this morning. Has been NPO. HPI 12/22/2022 History of Present Illness: Mary Dyer is a 77 year old female patient of mine with a history of breast cancer (left side) who is here to discuss the possible need for gallbladder removal. She has been diagnosed with a 5 mm gallbladder polyp and more recently, her EUS has shown gallbladder sludge. Here to schedule surgery. Notes pressure in her lower abdomen. Has to go to the bathroom a lot and sometimes will soil herself. Occasionally gets pain in the center of the abdomen; gets acid reflux in the early am. Anything spicy can bring on the symptoms. Occasional nausea but no vomiting. Occasional sharp stabbing pain in the right upper quadrant, can radiate to the back. Can happen every couple weeks. 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 Stopped the vancomycin PO as the last two tests were negative. 12/10/22: EUS Impression: - Normal esophagus. - A single gastric polyp. Resected and retrieved. Clips (MR conditional) were placed. - Normal duodenal bulb and second portion of the duodenum. - There was no sign of significant pathology in the ampulla. - There was no sign of significant pathology in the common bile duct. - Hyperechoic material consistent with sludge was visualized endosonographically in the gallbladder. - A 5 mm polyp was found in the gallbladder. - There was no evidence of significant pathology in the visualized portion of the liver. - There was no sign of significant pathology in the entire pancreas. - Endosonographic images of the left adrenal gland were unremarkable. - The celiac trunk was endosonographically normal. Recommendation: - Discharge patient to home. - Return to referring physician. Junior Us MD PAST MEDICAL HISTORY: Past Medical History: Diagnosis Date Acid reflux [...] tinnitus 01/21/2013 Temporomandibular joint disorders, unspecified 07/14/2010 PAST SURGICAL HISTORY: Past Surgical History: Procedure Laterality Date ANESTHESIA FOR CAT OR MRI SCAN N/A 01/14/2023 ANESTHESIA FOR NON-INVASIVE IMAGING (MRI OR CT) performed by [facility] [place] [facility] ARTHROPLASTY KNEE TOTAL Bilateral 2009 L, 2011 R BIOPSY OF BREAST, OPEN Left 05/23/2014 benign-nipple surgery BX LYMPH NODE DEEP AXIL 03/14/2013 03/14/2013 Left axillary lymph node dissection.dX: metastatic carcinoma seen in 16 & 21 examinated left lymph nodes Placement of right subclavian venous Port-A-Cath 03/14/13 [place] [facility] [place] [employer] Yvette Kaur PA-C CERVICAL HEMILAMINECTOMY cage CHEMOTHERAPY 2012 left breast CA COLONOSCOPY W/ BIOPSY (RECTUM) 06/27/2009 await path & aspirate results, diverticulosis & Ext Hemmorrhoids COLONOSCOPY W/ LESION REMOVAL, SNARE 07/30/2006 repeat 5 yrs repeat in 5 years COLONOSCOPY, DIAGNOSTIC (RECTUM) 09/21/2014 adenomatous polyps, diverticulosis, repeat 5 yrs/COLONOSCOPY FLEXIBLE PROXIMAL DIAGNOSTIC performedby Bryn Christiansen MD at ENDOSCOPY [facility] COLONOSCOPY, DIAGNOSTIC (RECTUM) 09/13/2019 sigmoid diverticulosis/biopsies show adenomatous polyps/recall 2 years/COLONOSCOPY FLEXIBLE PROXIMAL DIAGNOSTIC performed by Whit Martínez MD at ENDOSCOPY [facility] COLONOSCOPY, DIAGNOSTIC (RECTUM) N/A 09/01/2022 benign adenomatous polyps, diverticulosis, repeat 3 yrs / COLONOSCOPY FLEXIBLE PROXIMAL DIAGNOSTIC performed by Walt Muniz MD at ENDOSCOPY [facility] CYSTOSCOPY 11/19/2008 with sounds CYSTOSCOPY 09/24/2006 EGD, FLEXIBLE, DIAGNOSTIC 04/08/09 done normal exam EGD, FLEXIBLE, DIAGNOSTIC 03/30/2012 UPPER GI ENDOSCOPY DIAGNOSTIC performed by Walt Muniz MD at ENDOSCOPY [facility] EGD, FLEXIBLE, DIAGNOSTIC 07/06/2017 [facility] - normal results / [facility] EGD, FLEXIBLE, DIAGNOSTIC 08/30/2020 Normal scope / biopsies from your duodenum and stomach returned normal, showed reflux / ESOPHAGOGASTRODUODENOSCOPY (EGD), FLEXIBLE, TRANSORAL, DIAGNOSTIC performed by Whit Martínez MD at ENDOSCOPY [facility] EGD, W/ENDOSCOPIC US 12/10/2022 gastric polyp/sludge and polyp gallbladder/biopsies normal/ESOPHAGOGASTRODUODENOSCOPY (EGD), FLEXIBLE, TRANSORAL, ENDOSCOPIC ULTRASOUND performed by Junior Us MD at ENDOSCOPY [facility] EXPLORATION OF NIPPLE Left 05/23/2014 05/23/2014 NIPPLE EXPLORATION Dx no evidence of invasive carcinoma , proliferative fibrocystic changes Left performed by Minda Almodovar MD at OR [facility] INFORMATION Low back surgery - fusion INFORMATION 05/13/2008 neck surgery INFORMATION cervical fusions - has had several surgeries. INFORMATION Right 12/29/2021 total shoulder INTRANASAL BIOPSY ? 1999- Nasal polypectomy MISCELLANEOUS ORDER ([facility] ONLY) Right 10/07/2016 RLL cyst removed Holden--eye [...] performed by Nuha Dsouza DPM at OR [facility] REVISE UPPER EYELID/EXCESS SKIN Bilateral 11/07/2014 [place] US GUIDED BREAST BIOPSY LEFT Left 01/03/2013 malignant FAMILY HISTORY: Family History Problem Relation Age of Onset Hypertension Mother upper 80s Dementia Mother Other (poor circulation) Mother Other (diabetic) Father Cancer No significant family history Heart Disorder No significant family history Stroke No significant family history Thyroid Disorder No significant family history Eye Problems No significant family history Denies FH: AMD, Glaucoma, RD's or Blindness Breast Cancer No significant family history SOCIAL HISTORY: Social History Tobacco Use Smoking status: Never Smokeless tobacco: Never Tobacco comments: no passive smoke Vaping Use Vaping Use: Never used Substance Use Topics Alcohol use: No Drug use: No CURRENT HOSPITAL MEDICATIONS: Note that completed medications (per the MAR) continue to display for 24 hours. Ordered medicationsto be given in the future also display. Current Facility-Administered Medications Medication Dose Route Frequency Provider Acetaminophen (Tylenol) tab 975 mg 975 mg Oral Pre-Op Hank Siddiqui MD cefOXitin in dextrose (Mefoxin) ivpb 2 g 2 g IV Piggyback Pre-Op Hank Siddiqui MD isolyte-S pH 7.4 infusion Intravenous Continuous Hank Siddiqui MD isolyte-S pH 7.4 infusion Intravenous Continuous Minda Almodovar MD ALLERGIES: Flagyl [metronidazole hcl], Baclofen, Ciprofloxacin, Macrobid [nitrofurantoin], Metronidazole, Sulfa antibiotics, Zolpidem, and Protonix [pantoprazole sodium sesquihydrate] ROS: See HPI for pertinent positives and negatives All others reviewed as negative PHYSICAL EXAMINATION: Most Recent Vital Signs: BP: 136 mmHg/74 mmHg (03/09/23714) Pulse: 60 (03/09/23714) Temp: 36.39 C (03/09/23714) Resp: 18 (03/09/23714) SpO2: 96 % (03/09/23714) Const: NAD, Awake HEENT: ATNC, no signs of obvious injury Cv: Reg rate, HDS Pulm: no resp distress, oxygenating well on RA Ext: moves all well LABS: Labs reviewed as indicated below: IMAGING: Reviewed IMPRESSION and PLAN: Mary Dyer is a 77 year old female with a 5 mm gallbladder polyp and gallbladder sludge. While the polyp has been present on ultrasound since 2020 and is unchanged in size, the sludge is new and may be the source of her symptoms. - proceed with laparoscopic cholecystectomy - DC today postop Hank Siddiqui MD 03/09/2023 7:43 AM Patient was examined and will be discussed with Dr. Almodovar * Hank Siddiqui MD - 03/09/2023 7:41 AM EST HISTORY AND PHYSICAL EXAMINATION - General Surgery [facility] [address] Name: Mary Dyer Location: OR [facility]/OR Date: 03/09/2023 Time: 7:41 AM HISTORY OF PRESENT ILLNESS: Mary Dyer is a 77 year old female who presents for scheduled surgery. No recent illness. No changes to medicines or allergies. She has been taking her 81 mg aspirin. No questions or concerns this morning. Has been NPO. HPI 12/22/2022 History of Present Illness: Mary Dyer is a 77 year old female patient of mine with a history of breast cancer (left side) who is here to discuss the possible need for gallbladder removal. She has been diagnosed with a 5 mm gallbladder polyp and more recently, her EUS has shown gallbladder sludge. Here to schedule surgery. Notes pressure in her lower abdomen. Has to go to the bathroom a lot and sometimes will soil herself. Occasionally gets pain in the center of the abdomen; gets acid reflux in the early am. Anything spicy can bring on the symptoms. Occasional nausea but no vomiting. Occasional sharp stabbing pain in the right upper quadrant, can radiate to the back. Can happen every couple weeks. 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 Stopped the vancomycin PO as the last two tests were negative. 12/10/22: EUS Impression: - Normal esophagus. - A single gastric polyp. Resected and retrieved. Clips (MR conditional) were placed. - Normal duodenal bulb and second portion of the duodenum. - There was no sign of significant pathology in the ampulla. - There was no sign of significant pathology in the common bile duct. - Hyperechoic material consistent with sludge was visualized endosonographically in the gallbladder. - A 5 mm polyp was found in the gallbladder. - There was no evidence of significant pathology in the visualized portion of the liver. - There was no sign of significant pathology in the entire pancreas. - Endosonographic images of the left adrenal gland were unremarkable. - The celiac trunk was endosonographically normal. Recommendation: - Discharge patient to home. - Return to referring physician. Juniro Us MD PAST MEDICAL HISTORY: Past Medical History: Diagnosis Date Acid reflux [...] tinnitus 01/21/2013 Temporomandibular joint disorders, unspecified 07/14/2010 PAST SURGICAL HISTORY: Past Surgical History: Procedure Laterality Date ANESTHESIA FOR CAT OR MRI SCAN N/A 01/14/2023 ANESTHESIA FOR NON-INVASIVE IMAGING (MRI OR CT) performed by [facility] [place] [facility] ARTHROPLASTY KNEE TOTAL Bilateral 2009 L, 2010 R BIOPSY OF BREAST, OPEN Left 05/23/2014 benign-nipple surgery BX LYMPH NODE DEEP AXIL 03/14/2013 03/14/2013 Left axillary lymph node dissection.dX: metastatic carcinoma seen in 16 & 21 examinated left lymph nodes Placement of right subclavian venous Port-A-Cath 03/14/13 Dr. Almodov[place] [facility] [employer] Yvette Kaur PA-C CERVICAL HEMILAMINECTOMY cage CHEMOTHERAPY 2012 left breast CA COLONOSCOPY W/ BIOPSY (RECTUM) 06/27/2009 await path & aspirate results, diverticulosis & Ext Hemmorrhoids COLONOSCOPY W/ LESION REMOVAL, SNARE 07/30/2006 repeat 5 yrs repeat in 5 years COLONOSCOPY, DIAGNOSTIC (RECTUM) 09/21/2014 adenomatous polyps, diverticulosis, repeat 5 yrs/COLONOSCOPY FLEXIBLE PROXIMAL DIAGNOSTIC performedby Bryn Christiansen MD at ENDOSCOPY [facility] COLONOSCOPY, DIAGNOSTIC (RECTUM) 09/13/2019 sigmoid diverticulosis/biopsies show adenomatous polyps/recall 2 years/COLONOSCOPY FLEXIBLE PROXIMAL DIAGNOSTIC performed by Whit Martínez MD at ENDOSCOPY [facility] COLONOSCOPY, DIAGNOSTIC (RECTUM) N/A 09/01/2022 benign adenomatous polyps, diverticulosis, repeat 3 yrs / COLONOSCOPY FLEXIBLE PROXIMAL DIAGNOSTIC performed by Walt Muniz MD at ENDOSCOPY [facility] CYSTOSCOPY 11/19/2008 with sounds CYSTOSCOPY 09/24/2006 EGD, FLEXIBLE, DIAGNOSTIC 04/08/09 done normal exam EGD, FLEXIBLE, DIAGNOSTIC 03/30/2012 UPPER GI ENDOSCOPY DIAGNOSTIC performed by Walt Muniz MD at ENDOSCOPY [facility] EGD, FLEXIBLE, DIAGNOSTIC 07/06/2017 [facility] - normal results / [facility] EGD, FLEXIBLE, DIAGNOSTIC 08/30/2020 Normal scope / biopsies from your duodenum and stomach returned normal, showed reflux / ESOPHAGOGASTRODUODENOSCOPY (EGD), FLEXIBLE, TRANSORAL, DIAGNOSTIC performed by Whit Martínez MD at ENDOSCOPY [facility] EGD, W/ENDOSCOPIC US 12/10/2022 gastric polyp/sludge and polyp gallbladder/biopsies normal/ESOPHAGOGASTRODUODENOSCOPY (EGD), FLEXIBLE, TRANSORAL, ENDOSCOPIC ULTRASOUND performed by Junior Us MD at ENDOSCOPY [facility] EXPLORATION OF NIPPLE Left 05/23/2014 05/23/2014 NIPPLE EXPLORATION Dx no evidence of invasive carcinoma , proliferative fibrocystic changes Left performed by Minda Almodovar MD at OR [facility] INFORMATION Low back surgery - fusion INFORMATION 05/13/2008 neck surgery INFORMATION cervical fusions - has had several surgeries. INFORMATION Right 12/29/2021 total shoulder INTRANASAL BIOPSY ? 1999- Nasal polypectomy MISCELLANEOUS ORDER ([facility] ONLY) Right 10/07/2016 RLL cyst removed Holden--eye [...] performed by Nuha Dsouza DPM at OR [facility] REVISE UPPER EYELID/EXCESS SKIN Bilateral 11/07/2014 [place] US GUIDED BREAST BIOPSY LEFT Left 01/03/2013 malignant FAMILY HISTORY: Family History Problem Relation Age of Onset Hypertension Mother upper 80s Dementia Mother Other (poor circulation) Mother Other (diabetic) Father Cancer No significant family history Heart Disorder No significant family history Stroke No significant family history Thyroid Disorder No significant family history Eye Problems No significant family history Denies FH: AMD, Glaucoma, RD's or Blindness Breast Cancer No significant family history SOCIAL HISTORY: Social History Tobacco Use Smoking status: Never Smokeless tobacco: Never Tobacco comments: no passive smoke Vaping Use Vaping Use: Never used Substance Use Topics Alcohol use: No Drug use: No CURRENT HOSPITAL MEDICATIONS: Note that completed medications (per the MAR) continue to display for 24 hours. Ordered medicationsto be given in the future also display. Current Facility-Administered Medications Medication Dose Route Frequency Provider Acetaminophen (Tylenol) tab 975 mg 975 mg Oral Pre-Op Hank Siddiqui MD cefOXitin in dextrose (Mefoxin) ivpb 2 g 2 g IV Piggyback Pre-Op Hank Siddiqui MD isolyte-S pH 7.4 infusion Intravenous Continuous Hank Siddiqui MD isolyte-S pH 7.4 infusion Intravenous Continuous Minda Almodovar MD ALLERGIES: Flagyl [metronidazole hcl], Baclofen, Ciprofloxacin, Macrobid [nitrofurantoin], Metronidazole, Sulfa antibiotics, Zolpidem, and Protonix [pantoprazole sodium sesquihydrate] ROS: See HPI for pertinent positives and negatives All others reviewed as negative PHYSICAL EXAMINATION: Most Recent Vital Signs: BP: 136 mmHg/74 mmHg (03/09/23714) Pulse: 60 (03/09/23714) Temp: 36.39 C (03/09/23714) Resp: 18 (03/09/23714) SpO2: 96 % (03/09/23714) Const: NAD, Awake HEENT: ATNC, no signs of obvious injury Cv: Reg rate, HDS Pulm: no resp distress, oxygenating well on RA Ext: moves all well LABS: Labs reviewed as indicated below: IMAGING: Reviewed IMPRESSION and PLAN: Mary Dyer is a 77 year old female with a 5 mm gallbladder polyp and gallbladder sludge. While the polyp has been present on ultrasound since 2020 and is unchanged in size, the sludge is new and may be the source of her symptoms. - proceed with laparoscopic cholecystectomy - DC today postop Hank Siddiqui MD 03/09/2023 7:43 AM Patient was examined and will be discussed with Dr. Almodovar documented in this encounter Nursing Notes * Adam Benitez RN - 03/09/2023 12:01 PM EST [address] [address] SameDay Surgery Discharge Note Name: Mary Dyer Date: 03/09/2023 Time: 12:01 PM Discharge Disposition: Home Responsible adult as escort home: Transport Mode: Wheelchair Accompanied by: Elio Benitez RN To: Car Belongings with patient: Yes Patient meets criteria to be transferred or discharged. * Katelyn Foster RN - 02/09/2023 9:34 AM EDT Patient identified by: name/birthdate Person taught: Spouse at pt's request Optime case procedure confirmed with surgical consent Laterality confirmed as N/a Surgery date at time of Pre-Surgery Center Encounter: 03/09/2023 What procedure is patient having? Procedure: LAPAROSCOPIC CHOLECYSTECTOMY (90685) In an emergency, is patient willing to accept blood products or blood transfusion? unknown Do you need to place a blood bank order? No Anesthesia consent pool notified? N/A Anesthesia evaluation requested per case documentation? No Preop Evaluation Requested? No PATIENT EDUCATION SCREENING Person taught: Spouse Motivation Level: Asks Questions and Eager to Learn Language Barrier: No Physical Barrier: N/A METHOD: Lecture-telephone interview Patient Preferred Learning Methods: Lecture-Telephone interview Health History interview completed, questions answered, and the following patient instructions provided via telephone interview: Preoperative bathing instructions General preoperative instructions Medication instructions NPO instructions - If your normal morning routine, take amlodipine, gabapentin, atenolol, levothyroxine, pravastatin, omeprazole, buspirone and Lamictal the morning of surgery. OUTCOME: State / Describe / Explain and Needs Reinforcement * Katelyn Foster RN - 02/09/2023 9:31 AM EDT Left message on home phone for return call @ [phone] by Patient at least one week prior to surgery date or to leave a number where they can be reached . Instructed clinic open hours are M-F 8:00a- 4:00p. documented in this encounter OR Notes * OR Surgeon - Minda Almodovar MD - 03/09/2023 9:35 AM EST [facility] [address] OPERATIVE REPORT Name: Mary Dyer Date: 03/09/2023 Time: 9:36 AM Location: OR [facility] Service: General Surgery Date of Operation: 03/09/2023 Pre-op Diagnosis: gallbladder sludge and polyp, RUQ abdominal pain Post-op Diagnosis: same Operation: laparoscopic cholecystectomy Surgeon: Minda Almodovar MD Assistants: Hank Siddiqui, PGY 5 Anesthesia: General endotracheal anesthesia Drains: none Estimated Blood Loss: 5 ml. IV Fluids: 800 ml. Urine Output: N/A Specimens/Disposition: gallbladder and contents Apparent Intraoperative Complications: NONE Patient Condition: stable Disposition: Post Anesthesia Care Unit Attestation: I was present and scrubbed for the entire procedure Indications: 77 yr old woman with biliary symptoms and US showing gallbladder sludge and small polyp. Consented for laparoscopic cholecystectomy. Procedure: The patient received 2 gm of ancef preoperatively. The pt had placement of sequential compression devices. After the induction of general endotracheal anesthesia, her abdomen was steriley prepped and draped.The pt was placed in trendelenburg. A supraumbilical incision was made and the veress needle was placed into the peritoneal cavity. This was tested with the saline drop test. Initial pressure was 0 mm Hg and this was taken up to 15 mmHg. A 5 mm trocar was placed with the camera through the trocar. Three additional trocars were placed under direct vision - two 5 mm on the right side of the abdomen and an 11 mm in the epigastrium. There were no adhesions noted but the gallbladder did appear distended. The gallbladder was grasped and retracted over the liver. Dissection was begun at the triangle of Calot and the cystic duct and artery were identified. The gallbladder was triangulated on the cystic duct and the critical views were seen anteriorly and posteriorly. The cystic duct was doubly clipped on the remaining side and the gallbladder side and divided in between. The cystic artery was taken in a single branch with clips. The gallbladder was dissected off the liver bed without difficulty. It was placed in an endocatch and removed through the epigastric incision. Theliver bed was inspected and noted to be hemostatic. The trocars were removed and pneumoperitoneum released. The fascia of the epigastric incision was closed with 0-vicryl sutures placed anteriorly. The skin of all incisions was closed with running subcuticular 4-0 vicryl sutures. 30 cc of 0.5% marcaine was used for local anesthesia throughout the procedure. Steristrips and sterile dressing were applied. She was awakened and taken to recovery in stable condition. documented in this encounter Plan of Treatment Upcoming Encounters Date Type Department Care Team (Latest Contact Info) Description 03/23/2023 9:45 AM EST Office Visit General Surgery, [facility] [address] [place] [address] Minda Almodovar MD [address] [place] [address] 03/25/2023 2:00 PM EST Office Visit Otolaryngology [facility] [address] [place] [address] dIalia Lora PA-C [address] [place] [address] 04/06/2023 10:15 AM EST Hospital Encounter ENDO OSSC, Endoscopy Room [facility] [address] [place] [phone] Huyen Marmolejo DO [address] [place] [address] 04/06/2023 10:15 AM EST - 04/06/2023 10:45 AM EST Surgery ENDO OSSC, Endoscopy Room [facility] [address] [place] [address] Huyen Marmolejo, [address] [place] [address] COLONOSCOPY FLEXIBLE PROXIMAL DIAGNOSTIC 04/21/2023 8:40 AM EST Office Visit Family Practice [facility] [address] [place] [address] Dav Hargrove MD [address] [place] [address] 04/22/2023 9:00 AM EST Imaging Radiology [facility] 1st [facility] [address] [place] [address] 06/15/2023 9:25 AM EST Office Visit Urogynecology [facility] [address] [place] [address] Joaquin Johns MD [address] [place] [address] Nurse Cherelle Mattson [facility] [address] [place] [address] 08/27/2023 10:30 AM EDT Office Visit Allergy/Immunology [facility] [address] [place] [address] Yordan Jones MD [address] [place] [address] 10/22/2023 10:00 AM EDT Office Visit Nephrology, [facility] 200 [facility] [place] [place] [address] Bonnie Trevizo MD [address] [place] [address] 10/26/2023 9:30 AM EDT Office Visit Urology, [facility] 132 [facility] [place] [address] Cristian Griffin MD 27 [facility] [address] [place] [address] Pending Results Name Type Priority Associated Diagnoses Date /Time SURGICAL PATHOLOGY Pathology Routine Gallbladder polyp 03/09/2023 8:44 AM EST Scheduled Orders Name Type Priority Associated Diagnoses Orde r Schedule SURGICAL PATHOLOGY Pathology Routine Gallbladder polyp Release Upon Ordering for 1 Occurrences starting 03/09/2023, 1 completed Scheduled Procedures Name Priority Associated Diagnoses Date/Ti [...] this encounter Medical Devices Implanted Type Area Oncology Transplant Network Manager Device Identifier Shelf Expiration Date Model / Serial / Lot Sureclip 16mm 235cm - [id number] Implanted:Qty: 2 on 12/10/2022 by Junior Us MD at ENDOSCOPY [facility] Stomach MICRO TECH ENDOSCOPY 10/13/2023 [id number] / / [id number] documented as of this encounter Procedures Procedure Name Priority Date/Time Associated Diagnosis Comments GLUCOSE METER, POINT OF CARE FAITH 03/09/2023 7:48 AM EST documented in this encounter Results * GLUCOSE METER, POINT OF CARE (03/09/2023 7:48 AM EST) Glucose Meter 90 70 - 120 mg/dL 03/09/2023 7:54 AM EST [facility] Blood Whole blood specimen / Unknown 03/09/2023 7:48 AM EST 03/09/2023 7:54 AM EST Minda Almodovar MD LAB POINT OF CARE T EST DOCKED DEVICE UNSOLICITED RESULTS [facility] [address] [place] [address] documented in this encounter Visit Diagnoses Diagnosis Gallbladder polyp Cholesterolosis of gallbladder Diarrhea, unspecified type History of Clostridioides difficile infection documented in this encounter Administered Medications Inactive Administered Medications - up to 3 most recent administrations Medication Order MAR Action Action Date Dose Rate Site isolyte-S pH 7.4 infusion Intravenous, Plasma-LYTE 148, isolyte-S, and isolyte-S pH 7.4 are considered equivalent - including for MAR barcode scanning., CONTINUOUS, Starting on Wed03/09/23 at 0800, Until Wed03/09/23 at 1603, Pre-Op New Bag 03/09/2023 11:05 AM EST 1,000 mL 10 mL/hr isolyte-S pH 7.4 infusion Intravenous, at 10 mL/hr, Plasma-LYTE 148, isolyte-S, and isolyte-S pH 7.4 are considered equivalent - including for MAR barcode scanning., CONTINUOUS, Starting on Wed03/09/23 at 0745, Until Wed03/09/23 at 1603, Pre-Op Restarted 03/09/2023 8:40 AM EST Continue from Pre-Op 03/09/2023 7:58 AM EST 10 mL/hr New Bag 03/09/2023 7:45 AM EST 10 mL/hr ondansetron (Zofran) inj 4 mg 4 mg, IV Push, ONCE, On Wed03/09/23 at 1200, For 1 dose Given 03/09/2023 11:29 AM EST 4 mg oxyCODONE (Oxy IR) tab 5 mg 5 mg, Oral, Q6H PRN Pain, Moderate, Starting on Wed03/09/23 at 0941, Until Wed03/09/23 at 1603, Moderate pain, Post-op Given 03/09/2023 11:17 AM EST 5 mg documented in this encounter Active and Recently Administered Medications Times are shown in EST. Scheduled Medication Order 03/07/2023 03/08/2023 03/09/2023 Acetaminophen (Tylenol) tab 975 mg 975 mg, Oral, PREOP, First dose on Wed03/09/23 at 0800, Last dose on Wed03/09/23 at 0800, For 1 dose, Maximum 4 g acetaminophen/day. Avoid in patients with severe hepatic impairment or severe active liver disease. Administer 60 minutes prior to OR., Pre-Op 0800 (Not Given - Pr ovider: Adam Benitez RN - Reason: Other- Please add reason in Comments - Comment: IV dose given in OR) cefOXitin in dextrose (Mefoxin) ivpb 2 g (COMPLETED) 2 g, IV Piggyback, PREOP, 1 dose, First dose on Wed03/09/23 at 0800, Administer 60 minutes prior to skin incision, Pre-Op 0759 (Given - Provid er: Palak Fox CRNA) ondansetron (Zofran) inj 4 mg (COMPLETED) 4 mg, IV Push, ONCE, On Wed03/09/23 at 1200, For 1 dose 1129 (Given - Provid er: Adam Benitez RN) Continuous Medication Order 03/07/2023 03/08/2023 03/09/2023 isolyte-S pH 7.4 infusion Intravenous, Plasma-LYTE 148, isolyte-S, and isolyte-S pH 7.4 are considered equivalent - including for MAR barcode scanning., CONTINUOUS, Starting on Wed03/09/23 at 0800, Until Wed03/09/23 at 1603, Pre-Op 1105 (New Bag - Prov ider: Adam Benitez RN) isolyte-S pH 7.4 infusion Intravenous, at 10 mL/hr, Plasma-LYTE 148, isolyte-S, and isolyte-S pH 7.4 are considered equivalent - including for MAR barcode scanning., CONTINUOUS, Starting on Wed03/09/23 at 0745, Until Wed03/09/23 at 1603, Pre-Op 0745 (New Bag - Prov ider: Adam Benitez RN)0758 (Continue from Pre-Op - Provider: Palak Fox CRNA)0839 (Paused - Provider: Palak Fox CRNA - Comment: Switch to gravity)0840 (Restarted - Provider: Palak Fox CRNA)0856 (Anes Intra-Op Fluid - Provider: Palak Fox CRNA) PRN Medication Order 03/07/2023 03/08/2023 03/09/2023 bupivacaine HCl (Sensorcaine) 0.5 % (PF) inj (CANCELED) ONCE PRN INTRA PROCEDURE, Starting on Wed03/09/23 at 0904, Until Wed03/09/23 at 0924, Intra-Op 0904 (Given - Provid er: Minda Almodovar MD - Comment: Incisions) oxyCODONE (Oxy IR) tab 5 mg 5 mg, Oral, Q6H PRN Pain, Moderate, Starting on Wed03/09/23 at 0941, Until Wed03/09/23 at 1603, Moderate pain, Post-op 1117 (Given - Provid er: Adam Benitez RN) documented in this encounter Advance Directives Latest [...] the patient have Health Care Power of Sample Steamer? No Code Status History Code Status Date Activated Date Inactivated Comments Full Code 03/09/2023 7:16 AM 03/09/2023 9:42 AM Thi s order reflects the patients wishes and were consensually agreed upon. Question Answer Comments Discussion of Advance Directives occurred with: Not Discussed due to patient's condition Care Teams Payroll Processor Relationship Specialty Start Date End Date Dav Hargrove MD [address] [place] [address] PCP - General Family Medicine 05/28/20 documented as of this encounter
--- OUTSIDE RECORDS SUMMARY | 2023-06-13 22:48 | External Medical Summary | Summary of Care ---
Author Name Unknown Organization [facility] Address [address] [facility] [address] Phone [phone] Care Team Providers Care Channel Account Manager Name Role Phone Dav Hargrove MD Primary Care Provider [phone] Reason for Visit * Reason Onset Date Comments Advice 03/11/2023 Encounter Details Date Type Department Care Team (Late st Contact Info) Description 03/11/2023 Telephone General Surgery, [facility] [address] [place] [address] Minda Almodovar MD [address] [place] [address] Advice Allergies Active Allergy Reactions Criticality Noted Date [...] Active Additional Information Patient taking differently: 8 [id number] PRN, Nausea, Reported on 02/08/[address] [facility]. Devices Refurbish current custom molded [...] times a day. 0 07/17/2022 Active Ipratropium [place] 0.03 % Nasal Solution (Atrovent) USE 2 [...] mRNA, LNP-s, No Pre serve, 2-Dose Series ([employer]) 07/02/2020,06/06/2020 Pneumococcal Conjugate Vacc, 13 Valent (Prevnar) [...] encounter Miscellaneous Notes * Telephone Encounter - Cassy Beatty LPN - 03/11/2023 12:08 PM EST Didn't know if this had anything to do with her surgery, or medication, would you like to address it or should I have them call their family physician. * Telephone Encounter - Iris Zuniga OSA - 03/11/2023 11:16 AM EST Pt's calling in stating that patient has a lot of mouth ulcers, & they are wondering what they can do to help with them. Please call them back at [phone]. * Telephone Encounter - Clarita eBltran OSA - 03/11/2023 10:58 AM EST Pt talked to pcp about having ulcers in her mouth buy forgot to mention at nurse follow up appt today on the phone. Just wanted to let us know. documented in this encounter Plan of Treatment Upcoming Encounters Date Type Department Care Team (Latest Contact Info) Description 03/25/2023 11:00 AM EST Office Visit General Surgery, [facility] [address] [place] [address] Minda Almodovar MD [address] [place] [address] 03/25/2023 2:00 PM EST Office Visit Otolaryngology [facility] [address] [place] [address] Idalia Lora PA-C [address] [place] [address] 04/06/2023 10:15 AM EST Hospital Encounter ENDO OSSC, Endoscopy Room [facility] [address] [place] [phone] Huyen Marmolejo, DO [address] [place] [address] 04/06/2023 10:15 AM EST - 04/06/2023 10:45 AM EST Surgery ENDO OSSC, Endoscopy Room [facility] [address] [place] [phone] Huyen Marmolejo, DO [address] [place] [address] COLONOSCOPY FLEXIBLE PROXIMAL DIAGNOSTIC 04/21/2023 8:40 AM EST Office Visit Family Practice [facility] [address] [place] [address] Dav Hargrove MD [address] [place] [address] 04/22/2023 9:00 AM EST Imaging Radiology [facility] 1st [facility] [address] [place] [address] 06/15/2023 9:25 AM EST Office Visit Urogynecology [facility] [address] [place] [address] Joaquin Johns MD [address] [facility] [place] [address] Nurse Cherelle Mattson [place] [address] [place] [address] 08/27/2023 10:30 AM EDT Office Visit Allergy/Immunology [facility] 200 [facility] [place] [address] Yordan Jones MD 200 [facility] [place] [address] 10/22/2023 10:00 AM EDT Office Visit Nephrology, [facility] [address] [facility] [place] [address] Bonnie Trevizo MD 200 [facility] [address] 10/26/2023 9:30 AM EDT Office Visit Urology, [facility] [address] [place] [address] Cristian Griffin MD 27 [facility] [address] [place] [address] Scheduled Procedures Name Priority Associated Diagnoses Date/Ti [...] 11/14/2023 11/13/2013, 08/26/2005, 08/26/2005 GFR 02/09/2024 02/08/2023, 1009/2022, 12/31/2022, Additional history exists COLONOSCOPY-EVERY 3 YRS [...] this encounter Medical Devices Implanted Type Area Ride Assembly Supervisor Device Identifier Shelf Expiration Date Model / Serial / Lot Sureclip 16mm 235cm - [id number] Implanted:Qty: 2 on 12/10/2022 by Junior Us MD at ENDOSCOPY [facility] Stomach MICRO TECH ENDOSCOPY 10/13/2023 [id number] / / [id number] documented as of this encounter Advance Directives [...] the patient have Health Care Power of Actuarial Technician? No Code Status History Code Status Date Activated Date Inactivated Comments Full Code 03/09/2023 7:16 AM 03/09/2023 9:42 AM Thi s order reflects the patients wishes and were consensually agreed upon. Question Answer Comments Discussion of Advance Directives occurred with: Not Discussed due to patient's condition Care Teams Channel Account Manager Relationship Specialty Start Date End Date Dav Hargrove MD [address] [place] [address] PCP - General Family Medicine 05/28/20 documented as of this encounter
--- OUTSIDE RECORDS SUMMARY | 2023-06-13 22:48 | External Medical Summary | Summary of Care ---
Author Name Unknown Organization [facility] Address [address] [place] [address] Phone [phone] Care Team Providers Care 3Rd Mate Name Role Phone Dav Hargrove MD Primary Care Provider [phone] Reason for Visit * Reason Onset Date Comments FYI 03/11/2023 Home health visi t Encounter Details Date Type Department Care Team (Late st Contact Info) Description 03/11/2023 Telephone Family Practice [facility] [address] [place] [address] Dav [...] Active Additional Information Patient taking differently: 8 [id number] PRN, Nausea, Reported on 02/08/2023 [facility]. Devices Refurbish current custom molded inserts - [...] times a day. 0 07/17/2022 Active Ipratropium [place] 0.03 % Nasal Solution (Atrovent) USE 2 [...] 9:45 AM EST Office Visit General Surgery, [facility] [address] [place] [address] Minda Almodovar MD [address] [place] [address] 03/25/2023 2:00 PM EST Office Visit Otolaryngology [facility] [address] [place] [address] Idalia Lora PA-C [address] [place] [address] 04/06/2023 10:15 AM EST Hospital Encounter ENDO O[facility], Endoscopy Room [facility] [address] [place] [address] Huyen Marmolejo, DO [address] [place] [address] 04/06/2023 10:15 AM EST - 04/06/2023 10:45 AM EST Surgery ENDO OSSC, Endoscopy Room [facility] [address] [place] [phone] Huyen Marmolejo, DO [address] [place] [address] COLONOSCOPY FLEXIBLE PROXIMAL DIAGNOSTIC 04/21/2023 8:40 AM EST Office Visit Family Practice [facility] [address] [place] [address] Dav Hargrove MD [address] [place] [address] 04/22/2023 9:00 AM EST Imaging Radiology [facility] 1st [facility] [address] [place] [address] 06/15/2023 9:25 AM EST Office Visit Urogynecology [facility] [address] [place] [address] Joaquin Johns MD [address] [place] [address] Nurse Cherelle Mattson Katie [address] [place] [address] 08/27/2023 10:30 AM EDT Office Visit Allergy/Immunology [facility] [place] [address] [place] [address] Yordan Jones MD 200 [facility] [place], [place] [address] 10/22/2023 10:00 AM EDT Office Visit Nephrology, [facility] 200 [facility] [place], [place] [address] Bonnie Trevizo MD 200 [facility] [place], [place] [address] 10/26/2023 9:30 AM EDT Office Visit Urology, Health system 132 [facility] [place] [address] Cristian Griffin MD [address] [place] [address] [place] [address] Scheduled Procedures Name Priority Associated Diagnoses Date/Ti [...] this encounter Medical Devices Implanted Type Area Title Abstractor Device Identifier Shelf Expiration Date Model / Serial / Lot Sureclip 16mm 235cm - [id number] Implanted:Qty: 2 on 12/10/2022 by Junior Us MD at ENDOSCOPY [facility] Stomach MICRO TECH ENDOSCOPY 10/13/2023 [id number] / / [id number] documented as of this encounter Advance Directives [...] the patient have Health Care Power of Master [place]? No Code Status History Code Status Date Activated Date Inactivated Comments Full Code 03/09/2023 7:16 AM 03/09/2023 9:42 AM Thi s order reflects the patients wishes and were consensually agreed upon. Question Answer Comments Discussion of Advance Directives occurred with: Not Discussed due to patient's condition Care Teams 3Rd Mate Relationship Specialty Start Date End Date Dav Hargrove MD [address] [place] [address] PCP - General Family Medicine 05/28/20 documented as of this encounter
--- OUTSIDE RECORDS SUMMARY | 2023-06-13 22:48 | External Medical Summary | Summary of Care ---
Author Name Unknown Organization [facility] Address [address] [facility] [address] Phone [phone] Care Team Providers Care Weaving Professor Name Role Phone Dva Hargrove MD Primary Care Provider [phone] Reason for Visit * Reason Onset Date Comments Advice 03/12/2023 Encounter Details Date Type Department Care Team (Late st Contact Info) Description 03/12/2023 Telephone General Surgery, [facility] [address] [place] [address] Minda Almodovar MD [address] [place] [address] Advice Allergies Active Allergy Reactions Criticality Noted [...] as of this encounter (statuses as of 03/12/2023) Medications Medication Sig Dispensed Refills Start Date [...] Active Additional Information Patient taking differently: 8 [id number] PRN, Nausea, Reported on 02/08/2023 [facility]. Devices Refurbish current custom molded inserts - [...] times a day. 0 07/17/2022 Active Ipratropium [place] 0.03 % Nasal Solution (Atrovent) USE 2 [...] as of this encounter (statuses as of 03/12/2023) Active Problems Problem Noted Date Diagnosed Date [...] as of this encounter (statuses as of 03/12/2023) Resolved Problems Problem Noted Date Diagnosed Date [...] as of this encounter (statuses as of 03/12/2023) Immunizations Name Administration Dates Next Due COVID-19 mRNA, LNP-s, No Pre serve, 2-Dose Series (Gnzo) 07/02/2020,06/06/2020 Pneumococcal Conjugate Vacc, 13 Valent (Prevnar) [...] Telephone Encounter - Cassy Beatty LPN - 03/12/2023 2:18 PM EST Home health care called and she said her pain varies from day to day. Patient had gallbladder removed on . They took her vitals checked her out there are no signs of infection everything is good,she is very bloated. I said that since everything thing looks good that she may need to get up and walk more to get that gas out of her. Home health agreed with that, also if things get worse to callthe after hours number or go to ER. They can call Wednesday to update. documented in this encounter Plan of Treatment Upcoming Encounters Date Type Department Care Team (Latest Contact Info) Description 03/25/2023 11:00 AM EST Office Visit General Surgery, [facility] [address] [address] Minda Almodovar MD [address] [place] [address] 03/25/2023 2:00 PM EST Office Visit Otolaryngology [facility] [address] [address] [address] Idalia Lora PA-C [address] [place] [address] 04/06/2023 10:15 AM EST Hospital Encounter ENDO [facility], Endoscopy Room [facility] [address] [place] [phone] Huyen Marmolejo, DO [address] [place] [address] 04/06/2023 10:15 AM EST - 04/06/2023 10:45 AM EST Surgery ENDO [facility], Endoscopy Room [facility] [address] [place] [phone] Huyen Marmolejo, DO [address] [place] [address] COLONOSCOPY FLEXIBLE PROXIMAL DIAGNOSTIC 04/21/2023 8:40 AM EST Office Visit Family Practice [facility] [address] [place] [address] Dav Hargrove MD [address] [place] [address] 04/22/2023 9:00 AM EST Imaging Radiology [facility] [place] [address] [place] [address] 06/15/2023 9:25 AM EST Office Visit Urogynecology [facility] [address] [place] [address] Joaquin Johns MD [address] [place] [address] Nurse Cherelle Mattson [facility] [address] [place] [address] 08/27/2023 10:30 AM EDT Office Visit Allergy/Immunology [facility] [address] [place] [address] Yordan Jones MD [address] [place] [address] 10/22/2023 10:00 AM EDT Office Visit Nephrology, [facility] [address] [place] [address] Bonnie Trevizo MD [address] [place] [address] 10/26/2023 9:30 AM EDT Office Visit Urology, [facility] [place] [address] Cristian Griffin MD [address] [facility] [address] [place] [address] Scheduled Procedures Name Priority Associated Diagnoses Date/Ti [...] encounter Medical Devices Implanted Type Area Financial Aid Coordinator Device Identifier Shelf Expiration Date Model / Serial / Lot Sureclip 16mm 235cm - [id number] Implanted:Qty: 2 on 12/10/2022 by Junior Us MD at ENDOSCOPY [facility] Stomach MICRO TECH ENDOSCOPY 10/13/2023 [id number] / / [id number] documented as of this encounter Advance Directives [...] the patient have Health Care Power of Exploration Engineer? No Code Status History Code Status Date Activated Date Inactivated Comments Full Code 03/09/2023 7:16 AM 03/09/2023 9:42 AM Thi s order reflects the patients wishes and were consensually agreed upon. Question Answer Comments Discussion of Advance Directives occurred with: Not Discussed due to patient's condition Care Teams Weaving Professor Relationship Specialty Start Date End Date Dav Hargrove MD [address] [place] [address] PCP - General Family Medicine 05/28/20 documented as of this encounter
--- OUTSIDE RECORDS SUMMARY | 2023-06-13 22:49 | External Medical Summary | Summary of Care ---
Author Name Unknown Organization [facility] Address [address] [place] [address] Phone [phone] Care Team Providers Care Cisco Network Architect Name Role Phone Dav Hargrove MD Primary Care Provider [phone] Reason for Visit * Reason Onset Date Comments Home Monitoring Telephone 02/02/2023 Encounter Details Date Type Department Care Team (Late st Contact Info) Description 02/02/2023 Home Monitoring Care Coordination [address] [place] [address] Idalia Morris, Community Health Community Relations Director HTN, goal below 130/80* Allergies Active Allergy Reactions Criticality Noted Date [...] as of this encounter (statuses as of 02/02/2023) Medications Medication Sig Dispensed Refills Start Date End Date Status ASPIRIN 81 MG PO TABS one by mouth daily 0 Active Cyanocobalamin (B-12) 100 MCG TABS Take 1 Tab by mouth daily. In AM 0 Active Multiple Vitamins-Minerals (MULTIVITAL-M) Tablet Take 1 Tablet by mouth every afternoon. 0 Active Calcium Carb-Cholecalcifero l (CALCIUM + D3) 600-200 MG-UNIT per tablet [...] Tablet Chewable Take 1 Tablet by mouth as needed for Gas. 0 Active LORazepam (ATIVAN) 1 MG Tablet Take 1 Tablet by mouth as needed. 0 Active promethazine (PHENERGAN) 25 MG Tablet [...] Active traMADol HCl 50 MG Oral Tablet (Ultram)Indications :Lymphedema of left upper extremity Take 2 Tablets by mouth every 6 hours as needed for Pain, Severe. 120 Tablet 2 07/13/2022 Active tiZANidine HCl 2 MG Oral Tablet (Zanaflex)Indicatio ns:as needed Take by mouth 3 times a day. 0 07/17/2022 Active Ipratropium [place] 0.03 % Nasal Solution (Atrovent) USE 2 [...] Active busPIRone HCl 7.5 MG Oral Tablet (Buspar)Indications :in am 0 09/25/2022 Active Omeprazole 20 MG Oral Capsule Delayed Release (PriLOSEC)Indicatio ns:Gastroesophageal reflux disease with esophagitis without hemorrhage Take 1 Capsule by mouth in the morning and 1 Capsule in the evening. 180 Capsule 3 11/05/2022 Active Sucralfate 1 GM Oral Tablet (Carafate) Take 1 Tablet by mouth 4 times a day before meals and at bedtime. half an hour before meals and at bedtime 120 Tablet 5 01/04/2023 Active Atenolol 50 MG Oral Tablet (Tenormin)Indicatio ns:HTN, goal below 140/90 TAKE 1 TABLET BY MOUTH ONCE DAILY 90 Tablet 2 01/20/2023 Active Pravastatin Sodium 80 MG Oral TabletIndications:D yslipidemia, goal LDL below 130 TAKE 1 TABLET BY MOUTH ONCE DAILY 90 Tablet 2 01/20/2023 Active Furosemide 20 MG Oral Tablet (Lasix)Indications: Diastolic dysfunction TAKE 1 TABLET BY MOUTH DAILY 90 Tablet 3 01/20/2023 Active amLODIPine Besylate 10 MG Oral Tablet (Norvasc)Indication s:Chronic kidney disease with symptom management only, stage 3 (moderate) (HCC),HTN, goal below 130/80 TAKE 1 TABLET BY MOUTH DAILY 90 Tablet 3 01/20/2023 Active Pilocarpine HCl 5 MG Oral Tablet (Salagen) TAKE 1 TABLET BY MOUTH IN THE MORNING AND 1 TABLET BY MOUTH AT NOON AND 1 TABLET BY MOUTH BEFORE BEDTIME 270 Tablet 3 01/20/2023 Active Famotidine 40 MG Oral Tablet (Pepcid)Indications :Gastroesophageal reflux disease TAKE 1 TABLET BY MOUTH AT BEDTIME 90 Tablet 3 01/20/2023 Active Levothyroxine Sodium 125 MCG Oral Tablet (Levoxyl)Indication s:Hypothyroidism TAKE 1 TABLET BY MOUTH DAILY WITH A GLASS OF WATER 90 Tablet 3 01/20/2023 Active Losartan Potassium 100 MG Oral Tablet (Cozaar)Indications :HTN, goal below 140/90,Hypertensive kidney disease with stage 3a chronic kidney disease (HCC) TAKE 1 TABLET BY MOUTH DAILY 90 Tablet 3 01/20/2023 Active Gabapentin 300 MG Oral Capsule (Neurontin) TAKE 1 CAPSULE BY MOUTH 3 TIMES DAILY 270 Capsule 3 01/25/2023 Active documented as of this encounter (statuses as of 02/02/2023) Active Problems Problem Noted Date Diagnosed Date Moderate mitral regurgitation 07/20/2022 Overweight (BMI 25.0-29.9) 01/13/2022 Polyneuropathy following chemotherapy 08/29/2021 Gastroesophageal reflux dise ase with esophagitis without hemorrhage 05/27/2020 C. 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 [...] as of this encounter (statuses as of 02/02/2023) Resolved Problems Problem Noted Date Diagnosed Date Resolved Date Malignant neoplasm of left female breast 08/29/2021 10/29/2021 Obesity, Class I, BMI 30.0-3 4.9 (see actual BMI) 08/04/2021 01/13/2022 Loss of appetite 06/25/2021 08/04/2021 Malaise and fatigue 06/25/2021 08/05/19 22 Chronic kidney disease, stage 3a 08/20/2020 05/14/2021 Overview: Per CKD protocol Hypertensive kidney disease with stage 3a chronic [...] as of this encounter (statuses as of 02/02/2023) Immunizations Name Administration Dates Next Due COVID-19 mRNA, LNP-s, No Pre serve, 2-Dose Series (Catacel) 07/02/2020,06/06/2020 Pneumococcal Conjugate Vacc, 13 Valent (Prevnar) [...] as of this encounter Progress Notes * Idalia Morris, Community Health Community Relations Director - 02/02/2023 8:[address] Trevizo, I spoke with Mrs.Dyer this morning regarding the home blood pressure monitoring program. He informed me that they do not have compatible devices and have no plans to upgrade. She is not eligible to participate. I explained that if anything changes and they do upgrade their devices that wecan revisit participation in the program at that time. Thanks, Idalia Morris Community Programs Specialist documented in this encounter Plan of Treatment Upcoming Encounters Date Type Department Care Team (Latest Contact Info) Description 02/03/2023 1:35 PM EDT Office Visit Urogynecology [facility] [address] [place] [address] Joaquin Johns MD [address] [place] [address] Nurse Cherelle Mattson [facility] [address] [place] [address] 03/09/2023 8:00 AM EST Hospital Encounter OR [facility], Operating Room, [facility] - 4th Floor [address] [place] [address] Minda Almodovar MD [address] [place] [address] 03/09/2023 8:00 AM EST - 03/09/2023 10:06 AM EST Surgery OR [facility], Operating Room, [facility] - 4th Floor [address] [place] [address] Minda Almodovar MD [address] [place] [address] LAPAROSCOPIC CHOLECYSTECTOMY 03/23/2023 9:45 AM EST Office Visit General Surgery, [facility] [address] [place] [address] Minda Almodovar MD [address] [place] [address] 03/25/2023 2:00 PM EST Office Visit Otolaryngology [facility] [address] [place] [address] Idalia Lora PA-C [address] [place] [address] 04/06/2023 10:15 AM EST Hospital Encounter ENDO [facility], Endoscopy Room [facility] [address] [place] [phone] Huyen Marmolejo, DO [address] [place] [address] 04/06/2023 10:15 AM EST - 04/06/2023 10:45 AM EST Surgery ENDO [facility], Endoscopy Room [facility] [address] [place] [phone] Huyen Marmolejo, DO [address] [place] [address] COLONOSCOPY FLEXIBLE PROXIMAL DIAGNOSTIC 04/21/2023 8:40 AM EST Office Visit Family Practice [facility] [address] [address] Dav Hargrove MD [address] [place] [address] 04/22/2023 9:00 AM EST Imaging Radiology [facility] [address] [facility] [address] [address] 08/27/2023 10:30 AM EDT Office Visit [facility]Immun[facility] [address] [facility] [place] [address] Yordan Jones MD [address] [facility] [place] [address] 11/05/2023 3:00 PM EDT Office Visit Nephrology, [facility] [address] [facility] [place], [place] [address] Bonnie Trevizo MD [address] [facility] [place] [address] Scheduled Procedures Name Priority Associated Diagnoses Date/Ti me LAPAROSCOPIC CHOLECYSTECTOMY Gallbladder polyp 03/09/2023 8:00 AM EST COLONOSCOPY FLEXIBLE PROXIMAL DIAGNOSTIC Diarrhea, unspecified type History of Clostridioides difficile infection 04/06/2023 10:15 AM EST COLONOSCOPY FLEXIBLE PROXIMAL DIAGNOSTIC Recall History of colon polyps Health Maintenance Due Date Last Done Comments COVID-19 Vaccine ( season) 2022 08/10/2020, 07/02/2020, 06/06/2020 Influenza Vaccine (FLU shot) (#1) 2022 12/12/2021, 03/11/2021, 12/21/2019, Additional history exists Depression Screening 12/12/2022 12/12/2021 TSH 04/16/2023 04/16/2022, 05/14, 02/20/2021, Additional history exists DTaP,Tdap,and Td Vaccines (2 - Td or Tdap) 11/14/2023 11/13/2013, 08/26/2005, 08/26/2005 GFR 01/16/2024 01/15/2023, 12/12, 11/24/2022, Additional history exists COLONOSCOPY-EVERY 3 YRS AGES 18-100 09/01/2025 09/01/2022, 09/01/2022, 09/13/2019, Additional history exists Albumin/Creatinine Ratio 01/15/2026 01/15/2023, 06/11 DXA Scan 12/10/2026 12/11/2019, 08/10, 08/23/2012 Pneumococcal Vaccine: 65+ Years Completed 05/13/2015, 08/12/2012 Zoster Vaccines Completed 04/19/2019, 11/09/2018 COLONOSCOPY-EVERY 2 YRS AGES 18-100 Discontinued 09/01/2022, 09/01/2022, 09/13/2019, Additional history exists GARDASIL-HPV IMMUNIZATION SERIES Aged Out No longer eligible based on patient's age to complete this topic Hepatitis B Aged Out No longer eligi ble based on patient's age to complete this topic MENINGOCOCCAL (MENACTRA/MENVEO) Aged Out No longer eligible based on patient's age to complete this topic documented as of this encounter Medical Devices Implanted Type Area Textile Examiner Device Identifier Shelf Expiration Date Model / Serial / Lot Sureclip 16mm 235cm - [id number] Implanted:Qty: 2 on 12/10/2022 by Junior Us MD at ENDOSCOPY [facility] Stomach MICRO TECH ENDOSCOPY 10/13/2023 [id number] / / [id number] documented as of this encounter Visit Diagnoses Diagnosis HTN, goal below 130/80- Primary Unspecified essential hypertension Gallbladder polyp Cholesterolosis of gallbladder Diarrhea, unspecified type History of Clostridioides difficile infection documented in this encounter Care Teams Cisco Network Architect Relationship Specialty Start Date End Date Dav Hargrove MD [address] [facility] [place] [address] PCP - General Family Medicine 05/28/20 documented as of this encounter
--- OUTSIDE RECORDS SUMMARY | 2023-06-13 22:49 | External Medical Summary | Summary of Care ---
Author Name Unknown Organization [facility] Address [address] [place] [address] Phone [phone] Care Team Providers Care Housing And Residence Life Director Name Role Phone Dav Hargrove MD Primary Care Provider [phone] Reason for Visit * Reason Onset Date Comments Home Monitoring Telephone 02/02/2023 Encounter Details Date Type Department Care Team (Late st Contact Info) Description 02/02/2023 Home Monitoring Care Coordination [address] [place] [address] Idalia Morris, Community Health Seat Trimmer HTN, goal below 130/80* Allergies Active Allergy [...] times a day. 0 07/17/2022 Active Ipratropium [place] 0.03 % Nasal Solution (Atrovent) USE 2 [...] mRNA, LNP-s, No Pre serve, 2-Dose Series ([employer]) 07/02/2020,06/06/2020 Pneumococcal Conjugate Vacc, 13 Valent (Prevnar) 05/13/2015 Pneumococcal Polysaccharide PPV23 (Pneumovax) 08/12/2012 SEASONAL INFLUENZA, PF, 6 M & Above, IM , (FLULAVAL or FLUZONE) 01/18/2018 Season Influenza, Quad, PF, Adjuvanted, 65+ Yrs, IM (FLUAD) 12/21/2019 Seasonal Influenza, Quadriva lent Hd (Fluzone Hd) 12/12/2021 Seasonal Influenza, Quadriva lent, No Preserve, IM 12/25/2016,12/12/2015 Seasonal Influenza, Split, I IV3, With Preserve, Inj 12/18/2014,02/09/2014,02/13/2013,12/16,01/16/2011,01/06/2010,12/21/2008 ,02/10/2008,02/03/2006,03/02/2005,09/2002,01/12/2002,02/14/2001 Seasonal Influenza, Trivalen t, Adjuvanted, 65+ yrs [...] as of this encounter Progress Notes * Veronika Tenorio RN - 02/02/2023 3:38 PM EDT Pt is currently admitted to the hospital. * Bonnie Trevizo MD - 02/02/2023 3:34 PM EDT Please contact the patient and encourage her to do MTM routine follow-up; please help ensure she gets an upper arm blood pressure cuff * Idalia Morris Community Health Seat Trimmer - 02/02/2023 8:[address] Trevizo, I spoke with this morning regarding the home blood pressure [...] 03/09/2023 8:00 AM EST Hospital Encounter OR [facility], Operating Room, [facility] - 4th Floor [address] [place] [address] Minda Almodovar MD [address] [place] [address] 03/09/2023 8:00 AM EST - 03/09/2023 10:06 AM EST Surgery OR [facility], Operating Room, [facility] - 4th Floor [address] [place] [address] Minda Almodovar MD [address] [place] [address] LAPAROSCOPIC CHOLECYSTECTOMY 03/23/2023 9:45 AM EST Office Visit General Surgery, [facility] [address] [place] [address] Minda Almodovar MD [address] [place] [address] 03/25/2023 2:00 PM EST Office Visit Otolaryngology [facility] [address] [place] [address] Idalia Lora PA-C [address] [place] [address] 04/06/2023 10:15 AM EST Hospital Encounter ENDO [facility], Endoscopy Room [facility] [address] [place] [phone] Huyen Marmolejo, DO [address] [place] [address] 04/06/2023 10:15 AM EST - 04/06/2023 10:45 AM EST Surgery ENDO [facility], Endoscopy Room [facility] [address] [place] [phone] Huyen Marmolejo, DO [address] [place] [address] COLONOSCOPY FLEXIBLE PROXIMAL DIAGNOSTIC 04/21/2023 8:40 AM EST Office Visit Family Practice [facility] [address] [place] [address] Dav Hargrove MD [address] [place] [address] 04/22/2023 9:00 AM EST Imaging Radiology [facility] [address] [facility] [address] [place] [address] 08/27/2023 10:30 AM EDT Office Visit [facility] [address] [place] [address] Yordan Jones MD [address] [facility] [place] [address] 11/05/2023 3:00 PM EDT Office Visit Nephrology, [facility] [address] [facility] [place], [place] [address] Bonnie Trevizo MD [address] [facility] [place] [address] Scheduled Procedures Name Priority Associated Diagnoses Date/Ti [...] this encounter Medical Devices Implanted Type Area Wrist Closer Device Identifier Shelf Expiration Date Model / Serial / Lot Sureclip 16mm 235cm - [id number] Implanted:Qty: 2 on 12/10/2022 by Junior Us MD at ENDOSCOPY [facility] Stomach MICRO TECH ENDOSCOPY 10/13/2023 [id number] / / [id number] documented as of this encounter Visit Diagnoses Diagnosis HTN, goal below 130/80- Primary Unspecified essential hypertension Gallbladder polyp Cholesterolosis of gallbladder Diarrhea, unspecified type History of Clostridioides difficile infection documented in this encounter Care Teams Housing And Residence Life Director Relationship Specialty Start Date End Date Dav Hargrove MD [address] [facility] [place] [address] PCP - General Family Medicine 05/28/20 documented as of this encounter
--- OUTSIDE RECORDS SUMMARY | 2023-06-13 22:49 | External Medical Summary | Summary of Care ---
Author Name Unknown Organization [facility] Address [address] [place] [address] Phone [phone] Care Team Providers Care Waste Management Specialist Name Role Phone Dav Hargrove MD Primary Care Provider [phone] Reason for Visit * Reason Onset Date Comments Home Monitoring Telephone 02/02/2023 Encounter Details Date Type Department Care Team (Late st Contact Info) Description 02/02/2023 Home Monitoring Care Coordination [address] [place] [address] Idalia Morris, Community Health An Employee Sponsor Or Advocate And HTN, goal below 130/80* Allergies Active Allergy [...] times a day. 0 07/17/2022 Active Ipratropium [place] 0.03 % Nasal Solution (Atrovent) USE 2 [...] mRNA, LNP-s, No Pre serve, 2-Dose Series (Sonics) 07/02/2020,06/06/2020 Pneumococcal Conjugate Vacc, 13 Valent (Prevnar) [...] as of this encounter Progress Notes * Bonnie Trevizo MD - 02/02/2023 3:47 PM EDT Noted; defer this for now then * Veronika Tenorio RN - 02/02/2023 3:38 PM EDT Pt is currently admitted to the hospital. * Bonnie Trevizo MD - 02/02/2023 3:34 PM EDT Please contact the patient and encourage her to do MTM routine follow-up; please help ensure she gets an upper arm blood pressure cuff * Idalia Morris Community Health An Employee Sponsor Or Advocate And - 02/02/2023 8:[address] Trevizo, I spoke with Mrs.Brooks john this morning regarding the home blood pressure monitoring program. He informed me that they do not have compatible devices and have no plans to upgrade. She is not eligible to participate. I explained that if anything changes and they do upgrade their devices that wecan revisit participation in the program at that time. Thanks, Idalia Morris Community Programs Specialist Electronically signed by Idalia Morris Community Health An Employee Sponsor Or Advocate And at 02/02/2023 8:44 AM EDT documented in this encounter Plan of Treatment Upcoming Encounters Date Type Department Care Team (Latest Contact Info) Description 03/09/2023 8:00 AM EST Hospital Encounter OR GL, Operating Room, [facility] - 4th Floor [address] [place] [address] Minda Almodovar MD 132 [facility] [place] [address] 03/09/2023 8:00 AM EST - 03/09/2023 10:06 AM EST Surgery OR [facility], Operating Room, [facility] - 4th Floor [address] [place] [address] Minda Almodovar MD [address] [place] [address] LAPAROSCOPIC CHOLECYSTECTOMY 03/23/2023 9:45 AM EST Office Visit General Surgery, [facility] [address] [place] [address] Minda Almodovar MD [address] [place] [address] 03/25/2023 2:00 PM EST Office Visit Otolaryngology [facility] [address] [place] [address] Idalia Lora PA-C [address] [place] [address] 04/06/2023 10:15 AM EST Hospital Encounter ENDO [facility], Endoscopy Room [facility] [address] [place] [address] Huyen Marmolejo, DO [address] [place] [address] 04/06/2023 10:15 AM EST - 04/06/2023 10:45 AM EST Surgery ENDO [facility], Endoscopy Room [facility] [address] [place] [phone] Huyen Marmolejo, DO [address] [place] [address] COLONOSCOPY FLEXIBLE PROXIMAL DIAGNOSTIC 04/21/2023 8:40 AM EST Office Visit Family Practice [facility] [address] [place] [address] Dav Hargrove MD [address] [place] [address] 04/22/2023 9:00 AM EST Imaging Radiology [address] [facility] [place] [address] [place] [address] 08/27/2023 10:30 AM EDT Office Visit Allergy/Immunology [facility] [address] [place] [address] Yordan Jones MD [address] [facility] [place] [address] 11/05/2023 3:00 PM EDT Office Visit Nephrology, [facility] [address] [place] [address] Bonnie Trevizo MD [address] [facility] [place] [address] Scheduled Procedures Name Priority Associated Diagnoses Date/Ti [...] this encounter Medical Devices Implanted Type Area Set Builder Device Identifier Shelf Expiration Date Model / Serial / Lot Sureclip 16mm 235cm - [id number] Implanted:Qty: 2 on 12/10/2022 by Junior Us MD at ENDOSCOPY [facility] Stomach MICRO TECH ENDOSCOPY 10/13/2023 [id number] / / [id number] documented as of this encounter Visit Diagnoses Diagnosis HTN, goal below 130/80- Primary Unspecified essential hypertension Gallbladder polyp Cholesterolosis of gallbladder Diarrhea, unspecified type History of Clostridioides difficile infection documented in this encounter Care Teams Waste Management Specialist Relationship Specialty Start Date End Date Dav Hargrove MD [address] [place] [address] PCP - General Family Medicine 05/28/20 documented as of this encounter
--- OUTSIDE RECORDS SUMMARY | 2023-06-13 22:49 | External Medical Summary | Summary of Care ---
Author Name Unknown Organization [facility] Address [address] [place] [address] Phone [phone] Care Team Providers Care Can Marker Name Role Phone Dav Hargrove MD Primary Care Provider [phone] Reason for Visit * Reason Comments Outpatient Testing Encounter Details Date Type Department Care Team (Late st Contact Info) Description 02/08/2023 3:40 PM EDT Laboratory Laboratory, [facility] [address] [facility] [address] [facility] [address] [facility] [place] [address] Chronic kidney disease with symptom management only, stage 3 (moderate) (HCC) Allergies Active Allergy Reactions Criticality Noted Date [...] as of this encounter (statuses as of 02/08/2023) Medications Medication Sig Dispensed Refills Start Date [...] Active Additional Information Patient taking differently: 8 [id number] PRN, Nausea, Reported on 02/08/2023 [facility]. Devices Refurbish current custom molded [...] times a day. 0 07/17/2022 Active Ipratropium [place] 0.03 % Nasal Solution (Atrovent) USE 2 [...] at bedtime 120 Tablet 5 01/04/2023 Active Additional Information Patient not taking.Reported on 02/08/2023 Atenolol 50 MG Oral Tablet (Tenormin)Indicati ons:HTN, [...] MOUTH DAILY 90 Tablet 3 01/20/2023 Active Additional Information Patient not taking.Reported on 02/08/2023 amLODIPine Besylate 10 MG Oral Tablet (Norvasc)Indicatio [...] as of this encounter (statuses as of 02/08/2023) Active Problems Problem Noted Date Diagnosed Date [...] as of this encounter (statuses as of 02/08/2023) Resolved Problems Problem Noted Date Diagnosed Date [...] loss 01/26/2013 01/28/2017 Subjective tinnitus 01/21/2013 01/29/20 Acid reflux disease 09/13/2012 05/27/19 Chronic otitis externa 07/14/201001/28 Chronic rhinitis 07/14/2010 [...] as of this encounter (statuses as of 02/08/2023) Immunizations Name Administration Dates Next Due COVID-19 [...] Department Care Team (Latest Contact Info) Description 02/22/2023 2:30 PM EST Nurse Only Ancillary [facility] [place] [address] [place] [address] Nurse Dominic Mattson [address] [place] [place] [address] 03/08/2023 1:35 PM EST Office Visit Urogynecology [facility] [address] [place] [address] Joaquin Johns MD [address] [place] [address] Nurse Cherelle Mattson [address] [place] [address] 03/09/2023 8:00 AM EST Hospital Encounter OR GL, Operating Room, [facility] - 4th Floor [address] [place] [address] Minda Almodovar MD [address] [place] [address] 03/09/2023 8:00 AM EST - 03/09/2023 10:06 AM EST Surgery OR [facility], Operating Room, [facility] - 4th Floor [address] [place] [address] Minda Almodovar MD [address] [place] [address] LAPAROSCOPIC CHOLECYSTECTOMY 03/23/2023 9:45 AM EST Office Visit General Surgery, [facility] [address] [place] [address] Minda Almodovar MD [address] [place] [address] 03/25/2023 2:00 PM EST Office Visit Otolaryngology [facility] [address] [place], [place] [address] Idalia Lora PA-C [address] [place], [place] [address] 04/06/2023 10:15 AM EST Hospital Encounter ENDO [facility], Endoscopy Room [facility] [address] [place] [address] Huyen Marmolejo, DO [address] [place] [address] 04/06/2023 10:15 AM EST - 04/06/2023 10:45 AM EST Surgery ENDO [facility], Endoscopy Room [facility] [address] [place] [address] Huyen Marmolejo, DO [address] [place] [address] COLONOSCOPY FLEXIBLE PROXIMAL DIAGNOSTIC 04/21/2023 8:40 AM EST Office Visit Family Practice [facility] [address] [place] [address] Dav Hargrove MD [address] [place] [address] 04/22/2023 9:00 AM EST Imaging Radiology [facility] 1st [facility] [address] [place] [address] 08/27/2023 10:30 AM EDT Office Visit Allergy/Immunology [facility] 200 [facility] [place] [address] Yordan Jones MD 200 [facility] [place] [address] 10/22/2023 10:00 AM EDT Office Visit Nephrology, [facility] [address] [facility] [place], [place] [address] Bonnie Trevizo MD 200 [facility] [place], [place] [address] Pending Results Name Type Priority Associated Diagnoses Date /Time BASIC METABOLIC PANEL Lab Routine Chronic kidney disease with symptom management only, stage 3 (moderate) (HCC) 02/08/2023 3:26 PM EDT Scheduled Procedures Name Priority Associated Diagnoses Date/Ti id LAPAROSCOPIC CHOLECYSTECTOMY Gallbladder polyp 03/09/2023 8:00 AM [...] this encounter Medical Devices Implanted Type Area Core Winder Device Identifier Shelf Expiration Date Model / Serial / Lot Sureclip 16mm 235cm - [id number] Implanted:Qty: 2 on 12/10/2022 by Junior Us MD at ENDOSCOPY [facility] Stomach MICRO TECH ENDOSCOPY 10/13/2023 [id number] / / [id number] documented as of this encounter Visit Diagnoses Diagnosis Chronic kidney disease with symptom management only, stage 3 (moderate) (HCC) Gallbladder polyp Cholesterolosis of gallbladder Diarrhea, unspecified type History of Clostridioides difficile infection documented in this encounter Care Teams Can Marker Relationship Specialty Start Date End Date Dav Hargrove MD 132 [facility] [place] [address] PCP - General Family Medicine 05/28/20 documented as of this encounter
--- OUTSIDE RECORDS SUMMARY | 2023-06-13 22:49 | External Medical Summary | Summary of Care ---
Author Name Unknown Organization [facility] Address [address] [facility] [place] [address] Phone [phone] Care Team Providers Care Mattress Finisher Name Role Phone Dav Hargrove MD Primary Care Provider [phone] Reason for Visit * Reason Onset Date Comments Order Request 11/18/2022 Encounter Details Date Type Department Care Team (Late st Contact Info) Description 11/18/2022 Telephone Radiology [facility] [address] [place] [phone] Rama Rojas CRNP [address] [place] [address] Order Request Allergies Active Allergy Reactions Criticality Noted Date [...] as of this encounter (statuses as of 02/17/2023) Medications Medication Sig Dispensed Refills Start Date [...] Active Additional Information Patient taking differently: 8 [id number] PRN, Nausea, Reported on 02/08/2023 [facility]. Devices Refurbish current custom [...] times a day. 0 3 Active Ipratropium [place] 0.03 % Nasal Solution (Atrovent) USE 2 [...] mg tabs. 270 Capsule 1 3 Active Additional Information Patient not taking.Reported on 02/09/2023 busPIRone HCl 7.5 MG Oral Tablet (Buspar)Indicati ons:in am 0 3 Active Omeprazole 20 MG Oral Capsule Delayed Release (PriLOSEC)Indica tions:Gastroesop hageal reflux disease with esophagitis without hemorrhage Take 1 Capsule by mouth in the morning and 1 Capsule in the evening. 180 Capsule 3 3 Active ProAir HFA 108 (90 Base) MCG/ACT Inhalation Aerosol SolutionIndicati ons:Wheeze Inhale by mouth 2 Puffs every 4 hours as needed for Wheezing. 18 g 0 2 01/21/20 23 Discontinued Betamethasone Dipropionate 0.05 % External Cream (Diprosone) Apply to both outer ears every other night for itching 30 g 0 2 01/21/20 23 Discontinued Losartan Potassium 100 MG Oral Tablet (Cozaar)Indicati ons:HTN, goal below 140/90,Hypertens judson kidney disease with stage 3a chronic kidney disease (HCC) TAKE 1 TABLET BY MOUTH DAILY 90 Tablet 3 2 01/21/20 23 Discontinued Pilocarpine HCl 5 MG Oral Tablet (Salagen) TAKE 1 TABLET BY MOUTH IN THE MORNING AND 1 TABLET BY MOUTH AT NOON AND 1 TABLET BY MOUTH BEFORE BEDTIME 270 Tablet 3 2 01/21/20 23 Discontinued Gabapentin 300 MG Oral Capsule (Neurontin) TAKE 1 CAPSULE BY MOUTH 3 TIMES DAILY 270 Capsule 3 3 01/26/20 23 Discontinued Furosemide 20 MG Oral Tablet (Lasix)Indicatio ns:Diastolic dysfunction TAKE 1 TABLET BY MOUTH DAILY 90 Tablet 3 3 01/21/20 23 Discontinued Famotidine 40 MG Oral Tablet (Pepcid)Indicati ons:Gastroesopha geal reflux disease TAKE 1 TABLET BY MOUTH AT BEDTIME 90 Tablet 3 3 01/21/20 23 Discontinued Levothyroxine Sodium 125 MCG Oral Tablet (Levoxyl)Indicat ions:Hypothyroid ism TAKE 1 TABLET BY MOUTH DAILY WITH A GLASS OF WATER 90 Tablet 2 3 01/21/20 23 Discontinued Vancomycin HCl 125 MG Oral Capsule (Vancocin) Take 1 Capsule by mouth in the morning. 90 Capsule 2 3 01/05/20 23 Discontinued Pravastatin Sodium 80 MG Oral TabletIndication s:Dyslipidemia, goal LDL below 130 TAKE 1 TABLET BY MOUTH ONCE DAILY 90 Tablet 1 3 01/21/20 23 Discontinued amLODIPine Besylate 10 MG Oral Tablet (Norvasc)Indicat ions:Chronic kidney disease with symptom management only, stage 3 (moderate) (HCC),HTN, goal below 130/80 TAKE 1 TABLET BY MOUTH DAILY 90 Tablet 1 3 01/21/20 23 Discontinued Atenolol 50 MG Oral Tablet (Tenormin)Indica tions:HTN, goal below 140/90 TAKE 1 TABLET BY MOUTH ONCE DAILY 90 Tablet 1 3 01/21/20 23 Discontinued Celecoxib 200 MG Oral Capsule (CeleBREX) Take 1 Capsule by mouth in the morning. 0 01/21/20 23 Discontinued(Pat ient preference/disco ntinuation) Cefpodoxime Proxetil 200 MG Oral TabletIndication s:Dysuria Take 1 Tablet by mouth in the morning and 1 Tablet in the evening. 14 Tablet 0 3 01/05/20 23 Discontinued(Dis charged) documented as of this encounter (statuses as of 02/17/2023) Active Problems Problem Noted Date Diagnosed Date [...] as of this encounter (statuses as of 02/17/2023) Resolved Problems Problem Noted Date Diagnosed Date [...] as of this encounter (statuses as of 02/17/2023) Immunizations Name Administration Dates Next Due COVID-19 mRNA, LNP-s, No Pre serve, 2-Dose Series (Bulb) 07/02/2020,06/06/2020 Pneumococcal Conjugate Vacc, 13 Valent (Prevnar) [...] encounter Miscellaneous Notes * Telephone Encounter - Rama Rojas CRNP - 11/18/2022 10:28 AM EDT Changed DEVYN Wilkerson 11/18/2022 10:28 AM * Telephone Encounter - Emerald Modi RDMS - 11/18/2022 8:20 AM EDT Mary is scheduled tomorrow for an abdomen limited ultrasound for hepatosplenomegaly. Since we are to evaluate the liver and spleen could you please change the abdomen limited order to a abdomen complete please? Thank you, Ultrasound documented in this encounter Plan of Treatment Upcoming Encounters Date Type Department Care Team (Latest Contact Info) Description 02/22/2023 2:30 PM EST [facility] [address] [place] [address] Srinivasan, Nurse Dominic Renee Katie [address] [place] [address] 03/08/2023 1:35 PM EST Office Visit Urogynecology [facility] [address] [place] [address] Joaquin Johns MD [address] [place] [address] Nurse Cherelle Mattson Katie [address] [place] [address] 03/09/2023 8:00 AM EST Hospital Encounter OR GL, Operating Room, [facility] - 4th Floor [address] [place] [address] Minda Almodovar MD [address] [place] [address] 03/09/2023 8:00 AM EST - 03/09/2023 10:06 AM EST Surgery OR [facility], Operating Room, [facility] - 4th Floor [address] [place] [address] Minda Almodovar MD [address] [place] [address] LAPAROSCOPIC CHOLECYSTECTOMY 03/23/2023 9:45 AM EST Office [facility] [address] [place] [address] Minda Almodovar MD [address] [place] [address] 03/25/2023 2:00 PM EST Office Visit Otolaryngology [facility] [address] [place] [address] Idalia Lora PA-C [address] [place] [address] 04/06/2023 10:15 AM EST Hospital Encounter ENDO [facility], Endoscopy Room [facility] [address] [place] [phone] Huyen Marmolejo, DO [address] [place] [address] 04/06/2023 10:15 AM EST - 04/06/2023 10:45 AM EST Surgery ENDO [facility], Endoscopy Room [facility] [address] [place] [address] Huyen Marmolejo, DO [address] [place] [address] COLONOSCOPY FLEXIBLE PROXIMAL DIAGNOSTIC 04/21/2023 8:40 AM EST Office Visit Family Practice [facility] [address] [place] [address] Dav Hargrove MD [address] [place] [address] 04/22/2023 9:00 AM EST Imaging Radiology [facility] 1st [facility] [address] [place] [address] 08/27/2023 10:30 AM EDT Office Visit Allergy/Immunology [facility] 200 [facility] [place] [address] Yordan Jones MD 200 [facility] [place] [address] 10/22/2023 10:00 AM EDT Office Visit Nephrology, [facility] [address] [place], [place] [address] Bonnie Trevizo MD [facility] [place] [address] Scheduled Procedures Name Priority Associated Diagnoses Date/Ti [...] this encounter Medical Devices Implanted Type Area Digital Cartographer Device Identifier Shelf Expiration Date Model / Serial / Lot Beau 16mm 235cm - [id number] Implanted:Qty: 2 on 12/10/2022 by Junior Us MD at ENDOSCOPY [facility] Stomach MICRO TECH ENDOSCOPY 10/13/2023 [id number] / / [id number] documented as of this encounter Results * US ABDOMEN COMPLETE (11/24/2022 12:20 PM EDT) Anatomical Region Laterality Modality Abdomen, Body Ultrasound 11/25/2022 5:35 AM EDT Impressions 11/25/2022 5:32 AM EDT IMPRESSION 1. Hepatomegaly with hepatic steatosis. Borderline enlarged spleen. 2. Bilateral renal cysts. Narrative 11/25/2022 5:32 AM EDT EXAM US ABDOMEN COMPLETE-11/24/2022 12:20 pm HISTORY hepatosplenomegaly TECHNIQUE Sonographic imaging of the abdomen. COMPARISON CT 08/08/2021 FINDINGS LIVER: Enlarged (19 cm with increased echogenicity. No mass. BILE DUCTS: No intrahepatic or extrahepatic duct dilatation. Common bile duct measures 8 mm. GALLBLADDER: No cholelithiasis. Stable 5 mm gallbladder polyp. PANCREAS: Visualized portions are unremarkable. RIGHT KIDNEY: 10.3 cm in length. Normal size and echogenicity. Stable 2.2 cm septated cyst with calcification. No hydronephrosis or shadowing calculi. LEFT KIDNEY: 10.0 cm in length. Normal size and echogenicity. 1.5 cm superior pole cyst septated cyst and 1.2 cm lower pole simple renal cyst. SPLEEN: 12.9 cm. Normal size with subcentimeter cyst and granuloma.. AORTA: Visualized portions normal in caliber. OTHER: No ascites. Procedure Note Les Spaulding MD - 11/25/2022 EXAM US ABDOMEN COMPLETE-11/24/2022 12:20 pm HISTORY hepatosplenomegaly TECHNIQUE Sonographic imaging of the abdomen. COMPARISON CT 08/08/2021 FINDINGS LIVER: Enlarged (19 cm with increased echogenicity. No mass. BILE DUCTS: No intrahepatic or extrahepatic duct dilatation. Common bileduct measures 8 mm. GALLBLADDER: No cholelithiasis. Stable 5 mm gallbladder polyp. PANCREAS: Visualized portions are unremarkable. RIGHT KIDNEY: 10.3 cm in length. Normal size and echogenicity. Stable2.2 cm septated cyst with calcification. No hydronephrosis or shadowingcalculi. LEFT KIDNEY: 10.0 cm in length. Normal size and echogenicity. 1.5 cmsuperior pole cyst septated cyst and 1.2 cm lower pole simple renalcyst. SPLEEN: 12.9 cm. Normal size with subcentimeter cyst and granuloma.. AORTA: Visualized portions normal in caliber. OTHER: No ascites. IMPRESSION IMPRESSION 1. Hepatomegaly with hepatic steatosis. Borderline enlarged spleen. 2. Bilateral renal cysts. Rama THIBODEAUXNP RAD ULTR ASOUND documented in this encounter Visit Diagnoses Diagnosis Hepatosplenomegaly- Primary Other chronic nonalcoholic liver disease Hepatosplenomegaly Other chronic nonalcoholic liver disease Gallbladder polyp Cholesterolosis of gallbladder Diarrhea, unspecified type History of Clostridioides difficile infection documented in this encounter Care Teams Mattress Finisher Relationship Specialty Start Date End Date Dav Hargrove MD [address] [place] [address] PCP - General Family Medicine 05/28/20 documented as of this encounter
--- OUTSIDE RECORDS SUMMARY | 2023-06-13 22:49 | External Medical Summary | Summary of Care ---
Author Name Unknown Organization [facility] Address [address] [place] [address] Phone [phone] Care Team Providers Care Recovery Engineer Name Role Phone Dav Hargrove MD Primary Care Provider [phone] Reason for Referral * Evaluate & Treat - Unlimited Visits (Within 30 days (routine)) - Authorized Specialty Diagnoses / Procedures Referred By Contac t Referred To Contact Urology Diagnoses Recurrent UTI Joaquin Johns MD [address] [place] [address] Referral ID Status Reason Start Date Expiration Date Visits Requested Visits Authorized [id number] Authorized Specialty Services Required 999 999 Question [...] Referred By Contac t Referred To Contact COMPOSITE BOND TECHNICIAN - Urogynecology / Gynecology Urology Diagnoses Dysuria Dariana Fish CRNP [address] [place] [address] Referral ID Status Reason Start Date Expiration Date Visits Requested Visits Authorized [id number] Authorized Specialty Services Required 12/31/2022 999 999 Encounter Details Date Type Department Care Team (Late st Contact Info) Description 03/08/2023 1:35 PM EST Office Visit Urogynecology Sanaz Mattson [address] [place] [address] Joaquin Johns MD [address] [place] [address] Nurse Cherelle Mattson Katie [address] [place] [address] Recurrent UTI*; Mixed incontinence urge and stress; [...] Active Additional Information Patient taking differently: 8 [id number] PRN, Nausea, [place]20[place] [facility] [place] Refurbish current custom molded inserts - [...] times a day. 0 07/17/2022 Active Ipratropium Soldier 0.03 % Nasal Solution (Atrovent) USE 2 [...] mRNA, LNP-s, No Pre serve, 2-Dose Series ([employer] 07/02/2020,06/06/2020 Pneumococcal Conjugate Vacc, 13 Valent (Prevnar) [...] past year. She was recently admitted to [facility] for UTI sepsis. She was initially treated [...] history of Breast Cancer and was told not to use topical vaginal estrogen cream. Patient was [...] joint disorders, unspecified 07/14/2010 Patient sees Dav Hargrove MD as her primary care provider. Surgical History: Past Surgical History: Procedure Laterality Date ANESTHESIA FOR CAT OR MRI SCAN N/A 01/14/2023 ANESTHESIA FOR NON-INVASIVE IMAGING (MRI OR CT) performed by [facility] [place] [facility] ARTHROPLASTY KNEE TOTAL Bilateral 2009 L, 2010 R BIOPSY OF BREAST, OPEN Left 05/23/2014 benign-nipple surgery BX LYMPH NODE DEEP AXIL 03/14/2013 03/14/2013 Left axillary lymph node dissection.dX: metastatic carcinoma seen in 16 & 21 examinated left lymph nodes Placement of right subclavian venous Port-A-Cath 03/14/13 Dr. Almodovar at [facility] Metal Bending Machine Operator Yvette Kaur PA-C CERVICAL HEMILAMINECTOMY cage CHEMOTHERAPY 2012 left breast CA COLONOSCOPY W/ BIOPSY (RECTUM) 06/27/2009 await path & aspirate results, diverticulosis & Ext Hemmorrhoids COLONOSCOPY W/ LESION REMOVAL, SNARE 07/30/2006 repeat 5 yrs repeat in 5 years COLONOSCOPY, DIAGNOSTIC (RECTUM) 09/21/2014 adenomatous polyps, diverticulosis, repeat 5 yrs/COLONOSCOPY FLEXIBLE PROXIMAL DIAGNOSTIC performedby Bryn Christiansen MD at ENDOSCOPY [facility] COLONOSCOPY, DIAGNOSTIC (RECTUM) 09/13/2019 sigmoid diverticulosis/biopsies show adenomatous polyps/recall 2 years/COLONOSCOPY FLEXIBLE PROXIMAL DIAGNOSTIC performed by Whit Martínez MD at ENDOSCOPY [facility] COLONOSCOPY, DIAGNOSTIC (RECTUM) N/A 09/01/2022 benign adenomatous polyps, diverticulosis, repeat 3 yrs / COLONOSCOPY FLEXIBLE PROXIMAL DIAGNOSTIC performed by Walt Muniz MD at ENDOSCOPY [facility] CYSTOSCOPY 11/19/2008 with sounds CYSTOSCOPY 09/24/2006 EGD, FLEXIBLE, DIAGNOSTIC 04/08/09 done normal exam EGD, FLEXIBLE, DIAGNOSTIC 03/30/2012 UPPER GI ENDOSCOPY DIAGNOSTIC performed by Walt Muniz MD at ENDOSCOPY [facility] EGD, FLEXIBLE, DIAGNOSTIC 07/06/2017 KAT - normal results / [facility] EGD, FLEXIBLE, DIAGNOSTIC 08/30/2020 Normal scope / biopsies from your duodenum and stomach returned normal, showed reflux / ESOPHAGOGASTRODUODENOSCOPY (EGD), FLEXIBLE, TRANSORAL, DIAGNOSTIC performed by Whit Martínez MD at ENDOSCOPY [facility] EGD, W/ENDOSCOPIC US 12/10/2022 gastric polyp/sludge and polyp gallbladder/biopsies normal/ESOPHAGOGASTRODUODENOSCOPY (EGD), FLEXIBLE, TRANSORAL, ENDOSCOPIC ULTRASOUND performed by Junior Us MD at ENDOSCOPY [facility] EXPLORATION OF NIPPLE Left 05/23/2014 05/23/2014 NIPPLE EXPLORATION Dx no evidence of invasive carcinoma , proliferative fibrocystic changes Left performed by Minda Almodovar MD at OR [facility] INFORMATION Low back surgery - fusion INFORMATION [...] performed by Nuha Dsouza DPM at OR [facility] REVISE UPPER EYELID/EXCESS SKIN Bilateral 11/07/2014 Holden [...] by mouth 3 times a day. Ipratropium Soldier 0.03 % Nasal Solution (Atrovent) USE 2 [...] PSYCHIATRIC ROS: no depression and no anxiety Motorcycle Police Officer Documentation: Provider requested investigation officer Name of Motorcycle Police Officer: Glenys Hart Weight 85.3 kg (188 lb), [...] size. No adnexal masses or tenderness elicited. RESOURCE ANALYST: positive Levator ani muscle strength 2. No [...] 03/09/2023 8:00 AM EST Hospital Encounter OR [facility], Operating Room, [facility] - 4th Floor [address] [place] [address] Minda Almodovar MD [address] [place] [address] 03/09/2023 8:00 AM EST - 03/09/2023 10:06 AM EST Surgery OR [facility], Operating Room, [facility] - 4th Floor [address] [place] [address] Minda Almodovar MD [address] [place] [address] LAPAROSCOPIC CHOLECYSTECTOMY 03/23/2023 9:45 AM EST Office Visit General Surgery, [facility] [address] [place] [address] Minda Almodovar MD [address] [place] [address] 03/25/2023 2:00 PM EST Office Visit Otolaryngology [facility] [address] [place] [address] Idalia Lora PA-C [address] [place] [address] 04/06/2023 10:15 AM EST Hospital Encounter [facility], Endoscopy Room [facility] [address] [place] [address] Huyen Marmolejo, DO [address] [place] [address] 04/06/2023 10:15 AM EST - 04/06/2023 10:45 AM EST Surgery ENDO [facility], Endoscopy Room [facility] [address] [place] [phone] Huyen Marmolejo, DO [address] [place] [address] COLONOSCOPY FLEXIBLE PROXIMAL DIAGNOSTIC 04/21/2023 8:40 AM EST Office Visit Family Practice [facility] [address] [place] [address] Dav Hargrove MD [address] [place] [address] 04/22/2023 9:00 AM EST Imaging Radiology [facility] [address] [place] [address] 06/15/2023 9:25 AM EST Office Visit Urogynecology [facility] [address] [place] [address] Joaquin Johns MD [address] [place] [address] Nurse Cherelle Mattson [facility] [address] [place] [address] 08/27/2023 10:30 AM EDT Office Visit Allergy/Immunology [facility] [place] [address] [facility] [place] [address] Yordan Jones MD [address] [facility] [place], [place] [address] 10/22/2023 10:00 AM EDT Office Visit Nephrology, [facility] [address] [facility] [place], [place] [address] Bonnie Trevizo MD [address] [facility] [place], [place] [address] 10/26/2023 9:30 AM EDT Office Visit Urology, [facility] [address] [facility] [place] [address] Cristian Griffin MD [address] [place] [address] Scheduled Procedures Name Priority Associated Diagnoses Date/Ti [...] this encounter Medical Devices Implanted Type Area Meat Cooler Device Identifier Shelf Expiration Date Model / Serial / Lot Sureclip 16mm 235cm - [id number] Implanted:Qty: 2 on 12/10/2022 by Junior Us MD at ENDOSCOPY [facility] Stomach MICRO TECH ENDOSCOPY 10/13/2023 [id number] / / [id number] documented as of this encounter Visit Diagnoses Diagnosis Recurrent UTI- Primary Urinary tract infection, site not specified Mixed incontinence urge and stress Mixed incontinence urge and stress (male)(female) Atrophic vaginitis Postmenopausal atrophic vaginitis Dysuria [R30.0] Dysuria Gallbladder polyp Cholesterolosis of gallbladder Diarrhea, unspecified type History of Clostridioides difficile infection documented in this encounter Care Teams Recovery Engineer Relationship Specialty Start Date End Date Dav Hargrove MD [address] [facility] [place] [address] PCP - General Family Medicine 05/28/20 documented as of this encounter
--- OUTSIDE RECORDS SUMMARY | 2023-06-13 22:49 | External Medical Summary | Summary of Care ---
Author Name Unknown Organization [facility] Address [address] [facility] [place] [address] Phone [phone] Care Team Providers Care Credit Investigator Name Role Phone Dav Hargrove MD Primary Care Provider [phone] Reason for Visit * Reason Onset Date Comments Appointment 02/04/2023 Encounter Details Date Type Department Care Team (Late st Contact Info) Description 02/04/2023 Telephone Urogynecology [facility] [address] [place] [address] Joaquin Johns MD [address] [place] [address] Appointment Allergies Active Allergy Reactions Criticality Noted [...] as of this encounter (statuses as of 02/05/2023) Medications Medication Sig Dispensed Refills Start Date [...] times a day. 0 07/17/2022 Active Ipratropium [place] 0.03 % Nasal Solution (Atrovent) USE 2 [...] as of this encounter (statuses as of 02/05/2023) Active Problems Problem Noted Date Diagnosed Date [...] as of this encounter (statuses as of 02/05/2023) Resolved Problems Problem Noted Date Diagnosed Date [...] as of this encounter (statuses as of 02/05/2023) Immunizations Name Administration Dates Next Due COVID-19 mRNA, LNP-s, No Pre serve, 2-Dose Series ([employer]) 07/02/2020,06/06/2020 Pneumococcal Conjugate Vacc, 13 Valent (Prevnar) [...] something sooner than 03/08 will go to [place] to be seen, Please assist added to wait list both locations. Thank you documented in this encounter Plan of Treatment Upcoming Encounters Date Type Department Care Team (Latest Contact Info) Description 02/08/2023 2:40 PM EDT Office Visit Family Practice [facility] [address] [place] [address] Felicia Wilkes CRNP [address] [place] [address] 03/08/2023 1:35 PM EST Office Visit Urogynecology [facility] [address] [place] [address] Joaquin Johns MD [address] [place] [address] MattsonNurse Cherelle santiago [facility] [address] [place] [address] 03/09/2023 8:00 AM EST Hospital Encounter OR [facility], Operating Room, [facility] - 4th Floor [address] [place] [address] Minda Almodovar MD [address] [place] [address] 03/09/2023 8:00 AM EST - 03/09/2023 10:06 AM EST Surgery OR [facility], Operating Room, [facility] - 4th Floor [address] [place] [address] Minda Almodovar MD [address] [place] [address] LAPAROSCOPIC CHOLECYSTECTOMY 03/23/2023 9:45 AM EST Office Visit General Surgery, [facility] [address] [place] [address] Minda Almodovar MD [address] [place] [address] 03/25/2023 2:00 PM EST Office Visit Otolaryngology [facility] [address] [place] [address] Idalia Lora PA-C [address] [place] [address] 04/06/2023 10:15 AM EST Hospital Encounter [facility], Endoscopy Room [facility] [address] [place] [address] Huyen Marmolejo, DO [address] [place] [address] 04/06/2023 10:15 AM EST - 04/06/2023 10:45 AM EST Surgery ENDO [facility], Endoscopy Room [facility] [address] [place] [address] Huyen Marmolejo, DO [address] [place] [address] COLONOSCOPY FLEXIBLE PROXIMAL DIAGNOSTIC 04/21/2023 8:40 AM EST Office Visit Family Practice [facility] [address] [place] [address] Dav Hargrove MD [address] [place] [address] 04/22/2023 9:00 AM EST Imaging Radiology [address] [place] [address] 08/27/2023 10:30 AM EDT Office Visit Allergy/Immunology [facility] [address] [facility] [address] Yordan Jones MD [address] [facility] [place] [address] 10/22/2023 10:00 AM EDT Office Visit Nephrology, [facility] [address] [facility] [place] [address] Bonnie Trevizo MD [address] [facility] [place] [address] Scheduled Procedures Name Priority Associated Diagnoses Date/Ti [...] this encounter Medical Devices Implanted Type Area Shampoo Person Device Identifier Shelf Expiration Date Model / Serial / Lot Sureclip 16mm 235cm - [id number] Implanted:Qty: 2 on 12/10/2022 by Junior Us MD at ENDOSCOPY [facility] Stomach MICRO TECH ENDOSCOPY 10/13/2023 [id number] / / [id number] documented as of this encounter Care Teams Credit Investigator Relationship Specialty Start Date End Date Dav Hargrove MD [address] [place] [address] PCP - General Family Medicine 05/28/20 documented as of this encounter
--- OUTSIDE RECORDS SUMMARY | 2023-06-13 22:49 | External Medical Summary ---
Author Name Unknown Address Unknown Organization K01:LAB[facility]ATORY [facility] - [facility] [address] [place] [address] Laboratory Report Ordering Provider Test Date Status SHERIN SANDHU 02/08/2023 15:26:15 Final Observation Date Value Abnormality Reference (Units ) Status BUN 02/08/2023 15:26:15 7 6-20 (mg/dL) Final Creatinine 02/08/2023 15:26:15 1.4 Above high normal 0.5-1.0 (mg/dL) Final Glomerular filtration rate/1.73 sq M.predicted [Volume Rate/Area] in Serum, Plasma or Blood by Creatinine-based formula (CKD-EPI) 02/08/2023 15:26:15 38 Below low normal >=60 (mL/min) Final eGFR is calculated based on the CKD-EPI 2020 equation SODIUM 02/08/2023 15:26:15 141 135-146 (m mol/L) Final Potassium 02/08/2023 15:26:15 3.8 3.5-5.1 (m mol/L) Final Cl 02/08/2023 15:26:15 103 98-107 (mm ol/L) Final CO2 02/08/2023 15:26:15 28 22-32 (mmo l/L) Final Anion gap 02/08/2023 15:26:15 10 7-15 (mmol /L) Final Glucose 02/08/2023 15:26:15 102 70-120 (mg /dL) Final Calcium 02/08/2023 15:26:15 9.4 8.4-10.2 ( mg/dL) Final Performing Location LABORATORY [facility] - [facility] [place] [address]
--- OUTSIDE RECORDS SUMMARY | 2023-06-13 22:49 | External Medical Summary | Summary of Care ---
Author Name Unknown Organization [facility] Address [address] [address] Phone [phone] Care Team Providers Care Heat Treat Operator Name Role Phone Dav Hargrove MD Primary Care Provider [phone] Reason for Visit * Reason Onset Date Comments Hospital Follow-Up UTI, sepsis - patient states she is feeling tired Medication Administration 02/08/2023 Flu an d/or Pneumo Inj Encounter Details Date Type Department Care Team (Late st Contact Info) Description 02/08/2023 2:40 PM EDT Office Visit [facility] [address] [place] [address] Felicia Wilkes CRNP [address] [place] [address] Hospital discharge follow-up*; HTN, goal below 130/80; Chronic kidney disease with symptom management only, stage 3 (moderate) ([facility]); MCI (mild cognitive impairment); Hypothyroidism due to acquired atrophy of thyroid; Bipolar depression ([facility]); Need for prophylactic vaccination and inoculation against influenza; Chronic interstitial cystitis; Gastroesophageal reflux disease with esophagitis without hemorrhage Allergies Active Allergy Reactions Criticality Noted Date [...] Active Additional Information Patient taking differently: 8 [id number] PRN, Nausea, Reported on 02/08/2023 [facility] [place]. Devices Refurbish current custom [...] times a day. 0 07/17/2022 Active Ipratropium [place] 0.03 % Nasal Solution (Atrovent) USE 2 [...] Sign Reading Time Taken Comments Blood Pressure 98/60 02/08/2023 2:40 PM EDT Pulse 92 02/08/2023 2:40 PM EDT Temperature 36.6 C (97.8 F) 02/08/2023 2:40 PM ED T Respiratory Rate 22 02/08/2023 2:40 PM EDT Oxygen Saturation - - Inhaled Oxygen Concentration - - Weight 85 kg (187 lb 4.8 oz) 02/08/2023 2:40 PM EDT Height - - Body Mass Index 29.34 12/07/2022 1:36 PM EDT documented in this encounter Patient Instructions * Patient Instructions* Joaquin Gomez RN - 02/08/2023 2:45 PM EDT ~~PATIENT INSTRUCTIONS FOR FLU SHOT~~ Possible side effects of influenza vaccine, (flu shot), are usually mild and include: 1. Soreness or redness at injection site 2. Low grade fever 3. Body aches You may use Tylenol/Acetaminophen as needed for these symptoms. LET YOUR DOCTOR KNOW IMMEDIATELY IF YOU HAVE DIFFICULTY BREATHING OR SWALLOWING, EXPERIENCE ITCHINGOF FEET OR HANDS, HAVE SWELLING OF EYES, FACE OR INSIDE OF NOSE. documented in this encounter Progress Notes * Felicia Wilkes CRNP - 02/08/2023 2:51 PM EDT Images from the original note were not included. Follow up Family Medicine Visit History of Present Illness Mary Dyer is a very pleasant 77 year old female with PMH listed below presenting with hospitalfollow up. 01/31/23 - 02/04/23 [facility] for UTI/sepsis Chronic po vancomycin, planned for fecal transplant -- tested negative for c- diff, so plan is continue to monitor. No fever or chills. Low appetite. BM is regular, no burning with urination. Sleeping without issue.Working with home health nurse, PT/OT. Home BP was 128/78 at home. Still feels tired. She has vertigo a lot, hard to tell dizziness vs lightheadedness. TSH normal during admission GIA on CKD, Cr 1.2 at discharge, losartan was restarted. Social History Socioeconomic History Marital status: Spouse name: Edward Number of children: 2 Years of education: Not on file Highest education level: Not on file Occupational History Not on file Tobacco Use Smoking status: Never Smokeless tobacco: Never Tobacco comments: no passive smoke Vaping Use Vaping Use: Never used Substance and Sexual Activity Alcohol use: No Drug use: No Sexual activity: Yes Partners: Male Other Topics Concern Not on file Social History Narrative [facility] INFORMATION [...] Vasquez MD 06/04/2006 Social Determinants of Health Financial Resource Strain: Not on file Food Insecurity: No Food Insecurity (12/12/2021) Hunger Vital Sign Worried About Running Out of Food in the Last Year: Never true Ran Out of Food in the Last Year: Never true Transportation Needs: Not on file Physical Activity: Not on file Stress: Not on file Social Connections: Not on file Intimate Partner Violence: Not on file Housing Stability: Not on file PMH: Past Medical History: Diagnosis Date Acid reflux [...] tinnitus 01/21/2013 Temporomandibular joint disorders, unspecified 07/14/2010 Past Surgical History: Procedure Laterality Date ANESTHESIA FOR CAT OR MRI SCAN N/A 01/14/2023 ANESTHESIA FOR NON-INVASIVE IMAGING (MRI OR CT) performed by In And Out Surgery [facility] at OR [facility] ARTHROPLASTY KNEE TOTAL left BIOPSY OF BREAST, OPEN Left 05/23/2014 benign-nipple surgery BX LYMPH NODE DEEP AXIL 03/14/2013 03/14/2013 Left axillary lymph node dissection.dX: metastatic carcinoma seen in 16 & 21 examinated left lymph nodes Placement of right subclavian venous Port-A-Cath 03/14/13 Dr. Almodovar at [facility] Dry Heat Cabinet Attendant Yvette Kaur PA-C CERVICAL HEMILAMINECTOMY cage CHEMOTHERAPY 2012 left breast CA COLONOSCOPY W/ BIOPSY (RECTUM) 06/27/2009 await path & aspirate results, diverticulosis & Ext Hemmorrhoids COLONOSCOPY W/ LESION REMOVAL, SNARE 07/30/2006 repeat 5 yrs repeat in 5 years COLONOSCOPY, DIAGNOSTIC (RECTUM) 09/21/2014 adenomatous polyps, diverticulosis, repeat 5 yrs/COLONOSCOPY FLEXIBLE PROXIMAL DIAGNOSTIC performedby Bryn Christiansen MD at ENDOSCOPY [facility] COLONOSCOPY, DIAGNOSTIC (RECTUM) 09/13/2019 sigmoid diverticulosis/biopsies show adenomatous polyps/recall 2 years/COLONOSCOPY FLEXIBLE PROXIMAL DIAGNOSTIC performed by Whit Martínez MD at ENDOSCOPY [facility] COLONOSCOPY, DIAGNOSTIC (RECTUM) N/A 09/01/2022 benign adenomatous polyps, diverticulosis, repeat 3 yrs / COLONOSCOPY FLEXIBLE PROXIMAL DIAGNOSTIC performed by Walt Muniz MD at ENDOSCOPY [facility] CYSTOSCOPY 11/19/2008 with sounds CYSTOSCOPY 09/24/2006 EGD, FLEXIBLE, DIAGNOSTIC 04/08/09 done normal exam EGD, FLEXIBLE, DIAGNOSTIC 03/30/2012 UPPER GI ENDOSCOPY DIAGNOSTIC performed by Wlat Muniz MD at ENDOSCOPY [facility] EGD, FLEXIBLE, DIAGNOSTIC 07/06/2017 KAT - normal results / [facility] EGD, FLEXIBLE, DIAGNOSTIC 08/30/2020 Normal scope / biopsies from your duodenum and stomach returned normal, showed reflux / ESOPHAGOGASTRODUODENOSCOPY (EGD), FLEXIBLE, TRANSORAL, DIAGNOSTIC performed by Whit Martínez MD at ENDOSCOPY [facility] EGD, W/ENDOSCOPIC US 12/10/2022 gastric polyp/sludge and polyp gallbladder/biopsies normal/ESOPHAGOGASTRODUODENOSCOPY (EGD), FLEXIBLE, TRANSORAL, ENDOSCOPIC ULTRASOUND performed by Junior Us MD at ENDOSCOPY [facility] EXPLORATION OF NIPPLE Left 05/23/2014 05/23/2014 NIPPLE EXPLORATION Dx no evidence of invasive carcinoma , proliferative fibrocystic changes Left performed by Minda Almodovar MD at OR [facility] INFORMATION Low back surgery INFORMATION 05/13/2008 neck surgery INTRANASAL BIOPSY ? 1999- Nasal polypectomy MISCELLANEOUS [...] performed by Nuha Dsouza DPM at OR [facility] REVISE UPPER EYELID/EXCESS SKIN Bilateral 11/07/2014 [place] US GUIDED BREAST BIOPSY LEFT Left 01/03/2013 malignant Outpatient Medications Marked as Taking for the 02/08/23 encounter (Office Visit) with Felicia Wilkes CRNP Medication Sig Cephalexin 500 MG Oral Capsule (Keflex) Take 1 Capsule by mouth in the morning and 1 Capsule beforebedtime. For 7 days. Gabapentin 300 MG Oral Capsule (Neurontin) TAKE 1 CAPSULE BY MOUTH 3 TIMES DAILY amLODIPine Besylate 10 MG Oral Tablet (Norvasc) TAKE 1 TABLET BY MOUTH DAILY Atenolol 50 MG Oral Tablet (Tenormin) TAKE 1 TABLET BY MOUTH ONCE DAILY Famotidine 40 MG Oral Tablet (Pepcid) TAKE 1 TABLET BY MOUTH AT BEDTIME Levothyroxine Sodium 125 MCG Oral Tablet (Levoxyl) TAKE 1 TABLET BY MOUTH DAILY WITH A GLASS OF WATER Losartan Potassium 100 MG Oral Tablet (Cozaar) TAKE 1 TABLET BY MOUTH DAILY Pilocarpine HCl 5 MG Oral Tablet (Salagen) TAKE 1 TABLET BY MOUTH IN THE MORNING AND 1 TABLET BY MOUTH AT NOON AND 1 TABLET BY MOUTH BEFORE BEDTIME Pravastatin Sodium 80 MG Oral Tablet TAKE 1 TABLET BY MOUTH ONCE DAILY Omeprazole 20 MG Oral Capsule Delayed Release (PriLOSEC) Take 1 Capsule by mouth in the morning and1 Capsule in the evening. busPIRone HCl 7.5 MG Oral Tablet (Buspar) Gabapentin 100 MG Oral Capsule (Neurontin) Take 1 Capsule by mouth in the morning and 1 Capsule at noon and 1 Capsule before bedtime. With 300 mg tabs. Ipratropium [place] 0.03 % Nasal Solution (Atrovent) USE 2 SPRAYS IN BOTH NOSTRILS 4 TIMES DAILY traMADol HCl 50 MG Oral Tablet (Ultram) Take 2 Tablets by mouth every 6 hours as needed for Pain, Severe. Dicyclomine HCl 20 MG Oral Tablet (Bentyl) TAKE 1 TABLET BY MOUTH 4 TIMES DAILY NEEDED FOR CRAMPING AND FOR ABDOMINAL PAIN Fluticasone Propionate 50 MCG/ACT Nasal Suspension (Flonase) USE 2 SPRAYS IN BOTH NOSTRILS TWICE DAILY ondansetron (ZOFRAN) 4 MG Tablet Take 1 Tab by mouth every 12 hours as needed for Nausea. (Patient taking differently: Take 2 Tablets by mouth every 8 hours as needed for Nausea.) meclizine (ANTIVERT) 25 MG Tablet TAKE 2 TABLETS BY MOUTH 3 TIMES A DAY NEEDED FOR DIZZINESS LORazepam (ATIVAN) 1 MG Tablet Take 1 Tablet by mouth every 6 hours as needed for Anxiety. promethazine (PHENERGAN) 25 MG Tablet Take 1 Tablet by mouth every 4 hours as needed for Nausea. Simethicone 80 MG Oral Tablet Chewable Take 1 Tablet by mouth 2 times a day as needed for Gas. lithium carbonate ER (LITHOBID ER) 450 MG TBCR Take 1 Tablet by mouth at bedtime. traZODone (DESYREL) 100 MG Tablet Take 2 Tablets by mouth at bedtime. cetirizine (ZYRTEC) 10 MG Tablet Take 1 Tablet by mouth in the morning. Artificial Tear Solution (SOOTHE XP) SOLN Instill 2 Drops into both eyes 2 times a day. Ascorbic Acid (VITAMIN C) 1000 MG Tablet Take 1 Tablet by mouth in the morning and 1 Tablet before bedtime. lamoTRIgine (LAMICTAL) 150 MG Tablet Take 1 Tablet by mouth in the morning and 1 Tablet before bedtime. Probiotic Product (PROBIOTIC & ACIDOPHILUS EX ST) Capsule Take 1 Cap by mouth 2 times a day. Calcium Carb-Cholecalciferol (CALCIUM + D3) 600-200 MG-UNIT per tablet Take 1 Tablet by mouth in the morning. Cranberry 300 MG TABS Take 1 Tab by mouth 2 times a day. Cyanocobalamin (B-12) 100 MCG TABS Take 1 Tab by mouth daily. In AM Multiple Vitamins-Minerals (MULTIVITAL-M) Tablet Take 1 Tablet by mouth every afternoon. ASPIRIN 81 MG PO TABS one by mouth daily Review of patient's allergies indicates: Allergen Reactions Flagyl [Metronidazole Hcl] Hives Baclofen Neuro complications (Please comment) Speech issues, ect Other reaction(s): unknown Ciprofloxacin Rash +pain in feet +"almost " Other reaction(s): unknown Macrobid [Nitrofurantoin] Rash - pt denies Metronidazole Other reaction(s): hives Sulfa Antibiotics Hives Zolpidem Other reaction(s): delusional Protonix [Pantoprazole Sodium Sesquihydrate] Other (Please comment) headache Most Recent Immunizations Administered Date(s) Administered COVID-19 mRNA, LNP-s, No Preserve, 2-Dose Series ([employer]) 07/02/2020 Pneumococcal Conjugate Vacc, 13 Valent (Prevnar) 05/13/2015 Pneumococcal Polysaccharide PPV23 (Pneumovax) 08/12/2012 SEASONAL INFLUENZA, PF, 6 M & Above, IM , (FLULAVAL or FLUZONE) 01/18/2018 Season Influenza, Quad, PF, Adjuvanted, 65+ Yrs, IM (FLUAD) 12/21/2019 Seasonal Influenza, Quadrivalent Hd (Fluzone Hd) 12/12/2021 Seasonal Influenza, Quadrivalent, No Preserve, IM 12/25/2016 Seasonal Influenza, Split, IIV3, With Preserve, Inj 12/18/2014 Seasonal Influenza, Trivalent, Adjuvanted, 65+ yrs 03/11/2021 TD - Tetanus/Diptheria (ADULT) 08/26/2005 TDAP (age 10 and older)(Boostrix) 11/13/2013 Zoster Vaccine Recombinant (Shingrix) 04/19/2019 Review of Systems: Physical Exam BP 98/60 (BP Site: Right Arm, BP Position: Sitting, BP Cuff Size: Large) | Pulse 92 | Temp 36.6 C(97.8 F) (Tympanic) | Resp 22 | Wt 85 kg (187 lb 4.8 oz) | BMI 29.34 kg/m | BSA 2 m Physical Exam Constitutional: Appearance: Normal appearance. HENT: Head: Normocephalic. Cardiovascular: Rate and Rhythm: Normal rate and regular rhythm. Pulmonary: Effort: Pulmonary effort is normal. Breath sounds: Normal breath sounds. Abdominal: General: Bowel sounds are normal. There is no distension. Tenderness: There is no abdominal tenderness. Musculoskeletal: General: No swelling. Cervical back: Neck supple. Skin: General: Skin is warm. Neurological: Mental Status: She is alert and oriented to person, place, and time. Psychiatric: Mood and Affect: Mood normal. Assessment and Plan 1. HTN, goal below 130/80 At goal, Reduce losartan 100mg --> 50mg Continue atenolol, amlodipine F/u nurse visit in 2 weeks 2. Chronic kidney disease with symptom management only, stage 3 (moderate) (HCC) - BASIC METABOLIC PANEL; Future 3. MCI (mild cognitive impairment) 4. Hypothyroidism due to acquired atrophy of thyroid Euthyroid, cont current dose 5. Bipolar depression (HCC) F/u psych 6. Need for prophylactic vaccination and inoculation against influenza - INFLUENZA VACC, QUAD, HIGH DOSE (FLUZONE HD) 7. Chronic interstitial cystitis F/u urogyn 8. Gastroesophageal reflux disease with esophagitis without hemorrhage Cont prilosec 9. Hospital discharge follow-up UTI/sepsis Wrap-Up I have advised the patient to call our office with any worsening or new symptoms. I spent a total of 30-39 minutes (exact time 38 mins) on the date of service in preparation, delivery, and documentation of the care provided to Mary Dyer excluding any time spent in the performance of separately billed services. Felicia Wilkes, VIDAL, DEVYN [facility] * Joaquin Gomez RN - 02/08/2023 2:44 PM EDT PRE - ADMINISTRATION DOCUMENTATION Are you experiencing any cold symptoms or fever? No Have you had Guillain-[place] Syndrome (an illness that causes paralysis) within the last 6 weeks? No Have you had the flu shot in the past? YES Have you ever had a reaction to the flu shot? No Joaquin Gomez RN, 02/08/2023 2:44 PM documented in this encounter Nursing Notes * Joaquin Gomez RN - 02/08/2023 2:30 PM EDT Chief Complaint Patient presents with Hospital Follow-Up UTI, sepsis - patient states she is feeling tired Pre-Administration Time Out Procedure Performed: Yes Patient Identified (Ask Name/Date of ): Yes Does the patient have a fever greater than 101 degrees today? No Patient allergic to latex? No Has the patient ever fainted after receiving an injection? No VFC Stock: No Immunization(s) verified: Yes, Immunization Name: Flu, VIS Sheet(s) given: Yes Verified Side and Site: Yes Verified Shot(s) with Parent(s)/Patient: Yes documented in this encounter Plan of Treatment Upcoming Encounters Date Type Department Care Team (Latest Contact Info) Description 02/22/2023 2:30 PM EST Nurse Only Ancillary [facility] [address] [place] [address] Srinivasan, Nurse [facility] [address] [place] [address] 03/08/2023 1:35 PM EST [facility] [address] [place] [address] Joaquin Johns MD [address] [place] [address] Nurse Srinivasan Uronate Katie [address] [place] [address] 03/09/2023 8:00 AM EST Hospital Encounter OR [facility], Operating Room, [facility] - 4th Floor [address] [place] [address] Minda Almodovar MD [address] [place] [address] 03/09/2023 8:00 AM EST - 03/09/2023 10:06 AM EST Surgery OR [facility], Operating Room, [facility] - 4th Floor [address] [place] [address] Minda Almodovar MD [address] [place] [address] LAPAROSCOPIC CHOLECYSTECTOMY 03/23/2023 9:45 AM EST [facility] [place] [address] Minda Almodovar MD [address] [place] [address] 03/25/2023 2:00 PM EST Office Visit Otolaryngology [facility] [address] [place] [address] Idalia Lora PA-C [address] [place] [address] 04/06/2023 10:15 AM EST Hospital Encounter [facility], Endoscopy Room [facility] [address] [place] [id number] Huyen Marmolejo, DO [address] [place] [address] 04/06/2023 10:15 AM EST - 04/06/2023 10:45 AM EST Surgery ENDO [facility], Endoscopy Room [facility] [address] [place] [phone] Huyen Marmolejo, DO [address] [place] [address] COLONOSCOPY FLEXIBLE PROXIMAL DIAGNOSTIC 04/21/2023 8:40 AM EST Office Visit Family Practice [facility] [address] [place] [address] Dav Hargrove MD [address] [place] [address] 04/22/2023 9:00 AM EST Imaging Radiology [facility] [facility] [address] [place] [address] 08/27/2023 10:30 AM EDT Office Visit Allergy/Immunology [facility] [address] [place] [address] Yordan Jones MD [address] [place], [place] [address] 10/22/2023 10:00 AM EDT Office Visit Nephrology, Elmer Aragon [address] [facility] [place], [place] [address] Bonnie Trevizo MD [address] [facility] [place], [place] [address] Pending Results Name Type Priority Associated Diagnoses Date /Time BASIC METABOLIC PANEL Lab Routine Chronic kidney disease with symptom management only, stage 3 (moderate) (HCC) 02/08/2023 3:26 PM EDT Scheduled Orders Name Type Priority Associated Diagnoses Orde r Schedule BASIC METABOLIC PANEL Lab Routine Chronic kidney disease with symptom management only, stage 3 (moderate) (HCC) Expected: 02/08/2023 (Approximate), Expires: 02/08/2024 Scheduled Procedures Name Priority Associated Diagnoses Date/Ti [...] this encounter Medical Devices Implanted Type Area Sewer Builder Device Identifier Shelf Expiration Date Model / Serial / Lot Sureclip 16mm 235cm - [id number] Implanted:Qty: 2 on 12/10/2022 by uJnior Us MD at ENDOSCOPY [facility] Stomach MICRO TECH ENDOSCOPY 10/13/2023 [id number] / / [id number] documented as of this encounter Visit Diagnoses Diagnosis Hospital discharge follow-up- Primary Other follow-up examination HTN, goal below 130/80 Unspecified essential hypertension Chronic kidney disease with symptom management only, stage 3 (moderate) (HCC) MCI (mild cognitive impairment) Mild cognitive impairment, so stated Hypothyroidism due to acquired atrophy of thyroid Bipolar depression (HCC) Bipolar I disorder, most recent episode (or current) depressed, unspecified Need for prophylactic vaccination and inoculation against influenza Chronic interstitial cystitis Gastroesophageal reflux disease with esophagitis without hemorrhage Gallbladder polyp Cholesterolosis of gallbladder Diarrhea, unspecified type History of Clostridioides difficile infection documented in this encounter Care Teams Heat Treat Operator Relationship Specialty Start Date End Date Dav Hargrove MD [address] [place] [address] PCP - General Family Medicine 05/28/20 documented as of this encounter
--- OUTSIDE RECORDS SUMMARY | 2023-06-13 22:49 | External Medical Summary | Summary of Care ---
Author Name Unknown Organization [facility] Address [address] [place] [address] Phone [phone] Care Team Providers Care Gamer Name Role Phone Dav Hargrove MD Primary Care Provider [phone] Reason for Visit * Reason Onset Date Comments Home Monitoring Telephone 02/02/2023 Encounter Details Date Type Department Care Team (Late st Contact Info) Description 02/02/2023 Home Monitoring Care Coordination [address] [place] [address] Idalia Morris, Community Health Returned Case Inspector HTN, goal below 130/80* Allergies Active Allergy [...] times a day. 0 07/17/2022 Active Ipratropium [place]oll[place] 0.03 % Nasal Solution (Atrovent) USE 2 [...] mRNA, LNP-s, No Pre serve, 2-Dose Series ([email or web address]) 07/02/2020,06/06/2020 Pneumococcal Conjugate Vacc, 13 Valent (Prevnar) [...] Notes * Bonnie Trevizo MD - 02/02/2023 3:34 PM EDT Please contact the patient and encourage her to do MTM routine follow-up; please help ensure she gets an upper arm blood pressure cuff * Idalia Morris, Community Health Returned Case Inspector - 02/02/2023 8:[address] [...] 03/09/2023 8:00 AM EST Hospital Encounter OR [facility], Operating Room, [facility] - 4th Floor [address] [place] [address] Minda Almodovar MD [address] [place] [address] 03/09/2023 8:00 AM EST - 03/09/2023 10:06 AM EST Surgery OR [facility], Operating Room, [facility] - 4th Floor [address] [place] [address] Minda Almodovar MD [address] [place] [address] LAPAROSCOPIC CHOLECYSTECTOMY 03/23/2023 9:45 AM EST Office Visit General Surgery, [facility] [address] [place] [address] Minda Almodovar MD [address] [place] [address] 03/25/2023 2:00 PM EST Office Visit Otolaryngology [facility] [address] [place] [address] Idalia Lora PA-C [address] [place] [address] 04/06/2023 10:15 AM EST Hospital Encounter [facility], Endoscopy Room [facility] [address] [place] [phone] Huyen Marmolejo, DO [address] [place] [address] 04/06/2023 10:15 AM EST - 04/06/2023 10:45 AM EST Surgery ENDO [facility], Endoscopy Room [facility] [address] [place] [phone] Huyen Marmolejo, DO [address] [place] [address] COLONOSCOPY FLEXIBLE PROXIMAL DIAGNOSTIC 04/21/2023 8:40 AM EST Office Visit Family Practice [facility] [address] [place] [address] Dav Hargrove MD [address] [place] [address] 04/22/2023 9:00 AM EST Imaging Radiology [facility] [address] [place] [address] 08/27/2023 10:30 AM EDT Office Visit Allergy/Immunology [facility] [address] [place] [address] Yordan Jones MD [address] [place] [address] 11/05/2023 3:00 PM EDT [facility] [address] [place] [address] Bonnie Trevizo MD [address] [facility] [place] [address] Scheduled Procedures Name Priority Associated Diagnoses Date/Ti [...] this encounter Medical Devices Implanted Type Area Farm Reporter Device Identifier Shelf Expiration Date Model / Serial / Lot Sureclip 16mm 235cm - [id number] Implanted:Qty: 2 on 12/10/2022 by Junior Us MD at ENDOSCOPY [facility] Stomach MICRO TECH ENDOSCOPY 10/13/2023 [id number] / / [id number] documented as of this encounter Visit Diagnoses Diagnosis HTN, goal below 130/80- Primary Unspecified essential hypertension Gallbladder polyp Cholesterolosis of gallbladder Diarrhea, unspecified type History of Clostridioides difficile infection documented in this encounter Care Teams Gamer Relationship Specialty Start Date End Date Dav Hargrove MD [address] [place] [address] PCP - General Family Medicine 05/28/20 documented as of this encounter
--- OUTSIDE RECORDS SUMMARY | 2023-06-13 22:50 | External Medical Summary | Summary of Care ---
Author Name Unknown Organization [facility] Address [address] [facility] [address] Phone [phone] Care Team Providers Care Surgical Supplies Sterilizer Name Role Phone Yaya Watson MD Primary Care Provider [phone] Reason for Visit * Reason Comments eRx-Medication Refill Encounter Details Date Type Department Care Team Description 01/24/2023 Refill Family Practice [facility] [address] [facility] [place] [address] Yaya Watson MD [address] [facility] [place] [address] Allergies Active Allergy Reactions Severity Noted Date Comments Baclofen Neuro complications (Please [...] as of this encounter (statuses as of 01/25/2023) Medications Medication Sig Dispensed Refills Start Date [...] times a day. 0 07/17/2022 Active Ipratropium [place] 0.03 % Nasal Solution (Atrovent) USE 2 [...] MOUTH DAILY 90 Tablet 3 01/20/2023 Active hydroCHLOROthiazi de 12.5 MG Oral Tablet (Hydrodiuril)Dorita cations:Stage 3a chronic kidney disease (HCC) Take 0.5 Tablets by mouth in the morning. 15 Tablet 5 01/22/2023 Active Gabapentin 300 MG Oral Capsule (Neurontin) TAKE 1 CAPSULE BY MOUTH 3 TIMES DAILY 270 Capsule 3 01/25/2023 Active Gabapentin 300 MG Oral Capsule (Neurontin) TAKE 1 CAPSULE BY MOUTH 3 TIMES DAILY 270 Capsule 3 04/28/2022 3 Discontinued documented as of this encounter (statuses as of 01/25/2023) Active Problems Problem Noted Date Moderate mitral regurgitation 07/20/2022 Overweight (BMI 25.0-29.9) 01/13/2022 Polyneuropathy following chemotherapy Gastroesophageal reflux disease with eso phagitis without hemorrhage 05/27/2020 C. difficile colitis 05/27/2020 Overview: Chronic pending fecal transplant Hypothyroidism due to acquired atrophy o f thyroid 10/25/2017 Post-mastectomy lymphedema syndrome 08/11 History of breast cancer 01/26/2017 Bipolar depression 11/01/2015 MCI (mild cognitive impairment) 11/06/19 15 Dyslipidemia 02/09/2014 Chronic interstitial cystitis 02/13/2008 Fatty liver 09/19/2002 Overview: steatohepatitis Displacement of cervical intervertebral disc without myelopathy 03/08/2002 Overview: L C2-3,C3-4,C4-5; Rc4-5,C5-6, post subluxation,mild,C3-4 HTN, goal below 130/80 04/29/2001 documented as of this encounter (statuses as of 01/25/2023) Resolved Problems Problem Noted Date Resolved Date Malignant neoplasm of left female breast 022 10/29/2021 Obesity, Class I, BMI 30.0-34.9 (see actual BMI) 08/04/2021 01/13/2022 Loss of appetite 06/25/2021 08/04/2021 Malaise and fatigue 06/25/2021 08/04/2021 Chronic kidney disease, stage 3a 08/20/2020 05/14/2021 Overview: Per CKD protocol Hypertensive kidney disease with stage 3a chronic kidney disease 02/19/2020 07/20/2022 Overview: Per CKD protocol 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 02/13/2020 05/27/2020 Chemical pneumonitis 02/13/2020 08/29/2021 Hypertensive kidney disease with stage 3 chronic kidney disease 01/15/2019 02/13/2020 Hypertensive kidney disease with chronic kidney disease stage III 01/12/2019 02/22/2020 Overview: Per CKD protocol Kidney disease, chronic, stage III (GFR 30-59 ml /min) 11/21/2018 01/25/2019 Overview: Per CKD protocol Bacterial nephritis 03/28/2018 05/27/2020 Chronic cough 06/22/2017 05/27/2020 Esophageal dysphagia 05/14/2017 05/27/2020 History of recurrent UTIs 07/09/20162020 Rhinitis, nonallergic 06/03/2016 05/27/2020 Nasal turbinate hypertrophy 06/03/201605/13 History of nasal polyp 06/03/2016 05/10/201 7 Dysplastic nevus of lower extremity 09/28/2015 10/25/2017 Vitamin B 12 deficiency 05/29/2014 05/27/19 21 Edema 09/12/2013 05/29/2014 Leg pain 09/12/2013 09/18/2013 Cellulitis of leg 09/12/2013 09/18/2013 Spasm of muscle 09/12/2013 09/18/2013 Medical home patient encounter 03/30/2013 0 05/01/2022 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 02/21/2013 05/27/2020 Breast cancer 02/13/2013 10/05/2016 Hearing loss 01/26/2013 01/28/2017 Subjective tinnitus 01/21/2013 01/28/2017 Acid reflux disease 09/13/2012 05/27/2020 Chronic otitis externa 07/14/2010 7 Chronic rhinitis 07/14/2010 06/03/2016 Deviated nasal septum 07/14/2010 05/27/2020 Other specified forms of hearing loss 07/14/2010 08/19/2016 Degeneration of cervical intervertebral disc 07/201001/06/2021 Temporomandibular joint disorders, unspecified 0 07/14/2010 01/28/2017 HTN, goal to be determined 02/13/200802/15 Overview: Per HTN Taxonomy Dysuria 11/08/2007 02/13/2008 Electrolyte and fluid disorder 11/03/2007 0 08/19/2011 ANGIOEDEMA 06/04/2006 04/17/2010 Idiopathic urticaria 06/04/2006 01/28/2017 NONALLERGIC RHINITIS 06/04/2006 02/13/2008 Nasal polyp 06/04/2006 11/01/2006 ADVANCE DIRECTIVE INFORMATION 08/31/2005 Overview: Information offered-patient declined Hypothyroidism 06/04/2004 11/03/2005 Cervical spondylosis 03/13/2002 11/03/2005 Menopause 04/29/2001 08/19/2016 Major depressive disorder 04/29/20012020 Overview: ICD-10 update of inactive term BENIGN NEOPLASM LG BOWEL 08/15/1999 017 Dyspnea and respiratory abnormality 08/15/1999 11/03/2005 Overview: ICD-10 update of inactive term documented as of this encounter (statuses as of 01/25/2023) Immunizations Name Administration Dates Next Due COVID-19 [...] drink = 0.6 oz pur e alcohol) Food Insecurity Answer Date Recorded Within the past 12 months, y ou worried that your food would run out before you got money to buy more. Never true 12/12/2021 Within the past 12 months, t he food you bought just didn't last and you didn't have money to get more. Never true 12/12/2021 Sex Assigned at Date Recorded Female 05/11/2019 8:[address] Job Start Date Occupation Industry Not on file Not on file Not on file documented as of this encounter Miscellaneous Notes * Telephone Encounter - Yaya Watson MD - 01/25/2023 2:41 PM EDTSigned Prescriptions: Disp Refills Gabapentin 300 MG Oral Capsule (Neurontin) 270 Ca*3 Sig: TAKE 1 CAPSULE BY MOUTH 3 TIMES DAILY Authorizing Provider: YAYA WATSON * Telephone Encounter - Nuha Gurrola [facility] - 01/25/2023 1:25 PM EDTPending Prescriptions: Disp Refills Gabapentin 300 MG Oral Capsule 270 Ca*3 Sig: TAKE 1 CAPSULE BY MOUTH 3 TIMES DAILY * Telephone Encounter - Nuha Gurrola [facility] - 01/25/2023 1:24 PM EDT Did you pend patient's preferred pharmacy and medication before forwarding?yes Pharmacy: [facility] Pending Prescriptions: Disp Refills Gabapentin 300 MG Oral Capsule (Neurontin*270 Ca*3 Sig: TAKE 1 CAPSULE BY MOUTH 3 TIMES DAILY Last Visit: 01/04/2023 (in office), 01/22/2021 (telemedicine) Next Visit: 04/21/2023 If no future appointments scheduled, and last appointment is greater than a year ago, please schedule patient for a follow-up appointment Last date the medication was ordered: 04/28/22 Is this request for a controlled substance?No Urine Drug Screen:No results found. However, due to the size of the patient record, not all encounters were searched. Please check Results Review for a complete set of results. Patient Phone Numbers Labs: Lab Results Component Value Date/Time CREAT 1.2 (H) 01/15/2023 09:22 AM CREAT 1.15 11/19/2021 12:00 AM CREAT 1.1 (H) 02/12/2020 10:19 AM POTASSIUM 4.3 01/15/2023 09:22 AM POTASSIUM 4.1 11/19/2021 12:00 AM POTASSIUM 4.4 02/12/2020 10:19 AM TSH 1.15 04/16/2022 10:18 AM TSH 1.05 06/30/2018 10:18 AM LDLCALC 138 (H) 10/06/2021 10:21 AM LDLCALC 71 02/09/2014 08:25 AM LDLDIRECT 91 11/24/2022 11:16 AM LDLDIRECT 84 10/25/2017 09:49 AM ALT 17 12/31/2022 02:53 PM ALT 27 02/16/2019 08:37 AM HGBA1C 4.9 11/19/2021 12:00 AM HGBA1C 4.8 07/25/2014 02:24 PM documented in this encounter Plan of Treatment Upcoming Encounters Date Type Specialty Care Team Description 02/03/2023 Office Visit Gynecology Urology Joaquin Johns MD [address] [place], [place] [id number] Nurse Cherelle Mattson [address] [place] [address] 03/09/2023 Hospital Encounter Surgery Minda Almodovar MD [address] [place] [address] 03/09/2023 Surgery Surgery Minda Almodovar MD [address] [place] [address] LAPAROSCOPIC CHOLECYSTECTOMY 03/23/2023 Office Visit General Surgery Minda Almodovar MD [address] [place] [address] 04/06/2023 Hospital Encounter Endoscopy Huyen Marmolejo, DO [address] [place] [address] 04/06/2023 Surgery Endoscopy Huyen Marmolejo, DO [address] [place] [address] COLONOSCOPY FLEXIBLE PROXIMAL DIAGNOSTIC 04/15/2023 Office Visit Otolaryngology Idalia Lora PA-C [address] [place] [address] 04/21/2023 Office Visit Family Medicine Yaya Watson MD [address] [place] [address] 04/22/2023 Imaging Radiology 08/27/2023 Office Visit Allergy & Immunology Yordan Jones MD [address] [place] [address] 11/05/2023 Office Visit Nephrology Bonnie Trevizo MD [address] [place] [address] Scheduled Procedures Name Priority Associated Diagnoses Date/Ti [...] this encounter Medical Devices Implanted Type Area Toll Patrolman Device Identifier Shelf Expiration Date Model / Serial / Lot Sureclip 16mm 235cm - [id number] Implanted:Qty: 2 on 12/10/2022 by Junior Us MD at [facility]COPY [facility] Stomach MICRO TECH ENDOSCOPY 10/13/2023 [id number] / / [id number] documented as of this encounter Care Teams Surgical Supplies Sterilizer Relationship Specialty Start Date End Date Yaya Watson MD [address] [facility] [place] [address] PCP - General Family Medicine 05/28/20 documented as of this encounter
--- OUTSIDE RECORDS SUMMARY | 2023-06-13 22:50 | External Medical Summary | Summary of Care ---
Author Name Unknown Organization [facility] Address [address] [facility] [place] [address] Phone [phone] Care Team Providers Care Hostel Parent Name Role Phone Dav Hargrove MD Primary Care Provider [phone] Encounter Details Date Type Department Care Team Description 01/01/2023 Telephone Family Practice [facility] [address] [place] [address] Dariana Fish CRNP [address] [place] [address] Allergies Active Allergy Reactions Severity Noted Date [...] as of this encounter (statuses as of 01/15/2023) Medications Medication Sig Dispensed Refills Start Date [...] post (lateral) 1 Each 0 01/25/2020 Active ProAir HFA 108 (90 Base) MCG/ACT Inhalation Aerosol SolutionIndications :Wheeze Inhale by mouth 2 Puffs every 4 hours as needed for Wheezing. 18 g 0 10/19/2021 Active Betamethasone Dipropionate 0.05 % External Cream (Diprosone) Apply to both outer ears every other night for itching 30 g 0 01/12/2022 Active Losartan Potassium 100 MG Oral Tablet (Cozaar)Indications :HTN, goal below 140/90,Hypertensive kidney disease with stage 3a chronic kidney disease (HCC) TAKE 1 TABLET BY MOUTH DAILY 90 Tablet 3 01/26/2022 Active Additional Information Patient taking differently: Daily(AM), Reported on 12/07/2022 Methocarbamol 500 MG Oral Tablet (Robamol) Take 1 Tablet by mouth in the morning and 1 Tablet at noon and 1 Tablet in the evening and 1 Tablet before bedtime. 0 Active Pilocarpine HCl 5 MG Oral Tablet (Salagen) TAKE 1 TABLET BY MOUTH IN THE MORNING AND 1 TABLET BY MOUTH AT NOON AND 1 TABLET BY MOUTH BEFORE BEDTIME 270 Tablet 3 02/23/2022 Active Gabapentin 300 MG Oral Capsule (Neurontin) TAKE 1 CAPSULE BY MOUTH 3 TIMES DAILY 270 Capsule 3 04/28/2022 Active Furosemide 20 MG Oral Tablet (Lasix)Indications: Diastolic dysfunction TAKE 1 TABLET BY MOUTH DAILY 90 Tablet 3 04/28/2022 Active Famotidine 40 MG Oral Tablet (Pepcid)Indications :Gastroesophageal reflux disease TAKE 1 TABLET BY MOUTH AT BEDTIME 90 Tablet 3 04/28/2022 Active Fluticasone Propionate 50 MCG/ACT Nasal Suspension (Flonase) USE 2 SPRAYS IN BOTH NOSTRILS TWICE DAILY 96 g 4 04/29/2022 Active Dicyclomine HCl 20 MG Oral Tablet (Bentyl) TAKE 1 TABLET BY MOUTH 4 TIMES DAILY NEEDED FOR CRAMPING AND FOR ABDOMINAL PAIN 360 Tablet 3 05/04/2022 Active Levothyroxine Sodium 125 MCG Oral Tablet (Levoxyl)Indication s:Hypothyroidism TAKE 1 TABLET BY MOUTH DAILY WITH A GLASS OF WATER 90 Tablet 2 06/29/2022 Active traMADol HCl 50 MG Oral Tablet (Ultram)Indications :Lymphedema of left upper extremity Take 2 Tablets by mouth every 6 hours as needed for Pain, Severe. 120 Tablet 2 07/13/2022 Active tiZANidine HCl 2 MG Oral Tablet (Zanaflex)Indicatio ns:as needed Take by mouth 3 times a day. 0 07/17/2022 Active Pravastatin Sodium 80 MG Oral TabletIndications:D yslipidemia, goal LDL below 130 TAKE 1 TABLET BY MOUTH ONCE DAILY 90 Tablet 1 08/31/2022 Active Additional Information Patient taking differently: Indications: in evening, Reported on 12/07/2022 amLODIPine Besylate 10 MG Oral Tablet (Norvasc)Indication s:Chronic kidney disease with symptom management only, stage 3 (moderate) (HCC),HTN, goal below 130/80 TAKE 1 TABLET BY MOUTH DAILY 90 Tablet 1 08/31/2022 Active Additional Information Patient taking differently: Daily(AM), Reported on 12/07/2022 Atenolol 50 MG Oral Tablet (Tenormin)Indicatio ns:HTN, goal below 140/90 TAKE 1 TABLET BY MOUTH ONCE DAILY 90 Tablet 1 08/31/2022 Active Additional Information Patient taking differently: Daily(AM), Reported on 12/07/2022 Ipratropium [place] 0.03 % Nasal Solution (Atrovent) USE 2 SPRAYS IN BOTH NOSTRILS 4 TIMES DAILY 150 mL 3 09/01/2022 Active Celecoxib 200 MG Oral Capsule (CeleBREX) Take 1 Capsule by mouth in the morning. 0 Active Fluocinonide 0.05 % External Gel Apply [...] the evening. 180 Capsule 3 11/05/2022 Active documented as of this encounter (statuses as of 01/15/2023) Active Problems Problem Noted Date Moderate mitral [...] as of this encounter (statuses as of 01/15/2023) Resolved Problems Problem Noted Date Resolved Date [...] hypertrophy 06/03/201605/13 History of nasal polyp 06/03/2016 7 Dysplastic nevus of lower extremity 09/28/2015 [...] inactive term BENIGN NEOPLASM LG BOWEL 08/15/1999 10/19/2 017 Dyspnea and respiratory abnormality 08/15/1999 11/03/2005 Overview: ICD-10 update of inactive term documented as of this encounter (statuses as of 01/15/2023) Immunizations Name Administration Dates Next Due COVID-19 mRNA, LNP-s, No Pre serve, 2-Dose Series (360T) 07/02/2020,06/06/2020 Pneumococcal Conjugate Vacc, 13 Valent (Prevnar) [...] encounter Miscellaneous Notes * Telephone Encounter - Chuck Albarran - 01/01/2023 9:[address] canceled, pt added to wait list as requested * Telephone Encounter - Sonia Forde LPN - 01/01/2023 8:25 AM EDT Called pt-- Informed of message below, voiced understanding with the awaiting of the culture. Will cancel CT for today per message, pt agreeable. 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 (Unsure of pool) * Telephone Encounter - DEVYN Amin - 01/01/2023 8:15 AM EDT Spoke with PCP -- recommend canceling CT as some of the GI complaints are more chronic. Will await culture before any antibiotics since she's already starting to get diarrhea again and labs show worsening renal function. Please cancel CT appointment today and schedule urogyn. documented in this encounter Plan of Treatment Upcoming Encounters Date Type Specialty Care Team Description 01/20/2023 Office Visit Gastroenterology Rama Rojas CRNP [address] [place] [address] 01/25/2023 Office Visit Orthopedics Ren Lyn DO [address] [place] [address] 02/03/2023 Office Visit Gynecology Urology Joaquin Johns MD [address] [place] [address] Nurse Cherelle Mattson [address] [place] [address] 02/11/2023 Office Visit Otolaryngology Idalia Lora PA-C [address] [place] [address] 03/09/2023 Hospital Encounter Surgery Minda Almodovar MD [address] [place] [address] 03/09/2023 Surgery Surgery Minda Almodovar MD [address] [place] [address] LAPAROSCOPIC CHOLECYSTECTOMY 03/23/2023 Office Visit General Surgery Minda Almodovar MD [address] [place] [address] 04/06/2023 Hospital Encounter Endoscopy Huyen Marmolejo, DO [address] [place] [address] 04/06/2023 Surgery Endoscopy Huyen Marmolejo, DO [address] [place] [address] COLONOSCOPY FLEXIBLE PROXIMAL DIAGNOSTIC 04/21/2023 Office Visit Family Medicine Dav Hargrove MD [address] [place] [address] 04/22/2023 Imaging Radiology 08/27/2023 Office Visit Allergy & Immunology Yordan Jones MD [address] [place] [address], [place] [address] 11/05/2023 Office Visit Nephrology TrevizoBonnie marx MD [address] [facility], [place] [address] Scheduled Procedures Name Priority Associated Diagnoses Date/Ti me LAPAROSCOPIC CHOLECYSTECTOMY Gallbladder polyp 03/09/2023 8:00 AM EST COLONOSCOPY FLEXIBLE PROXIMAL DIAGNOSTIC Diarrhea, unspecified type History of Clostridioides difficile infection 04/06/2023 10:15 AM EST COLONOSCOPY FLEXIBLE PROXIMAL DIAGNOSTIC Recall History of colon polyps Health Maintenance Due Date Last Done Comments COVID-19 Vaccine (2022- season) 2022 08/10/2020, 07/02/2020, 06/06/2020 Influenza Vaccine [...] this encounter Medical Devices Implanted Type Area Business Continuity Analyst Device Identifier Shelf Expiration Date Model / Serial / Lot Sureclip 16mm 235cm - [id number] Implanted:Qty: 2 on 12/10/2022 by Junior Us MD at ENDOSCOPY [facility] Stomach MICRO TECH ENDOSCOPY 10/13/2023 [id number] / / [id number] documented as of this encounter Care Teams Hostel Parent Relationship Specialty Start Date End Date Dav Hargrove MD [address] [place] [address] PCP - General Family Medicine 05/28/20 documented as of this encounter
--- OUTSIDE RECORDS SUMMARY | 2023-06-13 22:50 | External Medical Summary | Summary of Care ---
Author Name Unknown Organization [facility] Address [address] [facility] [place] [address] Phone [phone] Care Team Providers Care Paper Production Engineer Name Role Phone Dav Hargrove MD Primary Care Provider [phone] Reason for Visit * Reason Onset Date Comments Med Request 01/20/2023 Encounter Details Date Type Department Care Team Description 01/20/2023 Telephone Nephrology, [facility] [address] [facility] [place] [address] Bonnie Trevizo MD [address] [place] [address] Med Request Allergies Active Allergy Reactions Severity Noted Date [...] as of this encounter (statuses as of 01/22/2023) Medications Medication Sig Dispensed Refills Start Date [...] for Nausea. 20 Tab 0 0 Active Misc. Devices Refurbish current custom molded inserts - hindfoot varus post (lateral) 1 Each 0 0 Active Methocarbamol 500 MG Oral Tablet (Robamol) Take 1 Tablet by mouth in the morning and 1 Tablet at noon and 1 Tablet in the evening and 1 Tablet before bedtime. 0 Active Gabapentin 300 MG Oral Capsule (Neurontin) TAKE 1 CAPSULE BY MOUTH 3 TIMES DAILY 270 Capsule 3 3 Active Fluticasone Propionate 50 MCG/ACT Nasal Suspension [...] times a day. 0 3 Active Ipratropium [place] 0.03 % Nasal Solution (Atrovent) USE 2 [...] at bedtime 120 Tablet 5 3 Active Atenolol 50 MG Oral Tablet (Tenormin)Indicat ions:HTN, goal below 140/90 TAKE 1 TABLET BY MOUTH ONCE DAILY 90 Tablet 2 3 Active Pravastatin Sodium 80 MG Oral TabletIndications :Dyslipidemia, goal LDL below 130 TAKE 1 TABLET BY MOUTH ONCE DAILY 90 Tablet 2 3 Active Furosemide 20 MG Oral Tablet (Lasix)Indication [...] 3 Active Famotidine 40 MG Oral Tablet (Pepcid)Indicatio ns:Gastroesophage al reflux disease TAKE 1 TABLET BY MOUTH AT BEDTIME 90 Tablet 3 3 Active Levothyroxine Sodium 125 MCG Oral Tablet (Levoxyl)Indicati ons:Hypothyroidis m TAKE 1 TABLET BY MOUTH DAILY WITH A GLASS OF WATER 90 Tablet 3 3 Active Losartan Potassium 100 MG Oral Tablet (Cozaar)Indicatio ns:HTN, goal below 140/90,Hypertensi ve kidney disease with stage 3a chronic kidney disease (HCC) TAKE 1 TABLET BY MOUTH DAILY 90 Tablet 3 3 Active hydroCHLOROthiazi de 12.5 MG Oral Tablet (Hydrodiuril)Dorita cations:Stage 3a chronic kidney disease (HCC) Take 0.5 Tablets by mouth in the morning. 15 Tablet 5 3 Active ProAir HFA 108 (90 Base) MCG/ACT Inhalation Aerosol SolutionIndicatio ns:Wheeze Inhale by mouth 2 Puffs every 4 hours as needed for Wheezing. 18 g 0 2 01/21/20 23 Discontinued Betamethasone Dipropionate 0.05 % External Cream (Diprosone) Apply to both outer ears every other night for itching 30 g 0 2 01/21/20 23 Discontinued Celecoxib 200 MG Oral Capsule (CeleBREX) Take 1 Capsule by mouth in the morning. 0 01/21/20 23 Discontinued(Pat ient preference/disco ntinuation) documented as of this encounter (statuses as of 01/22/2023) Active Problems Problem Noted Date Moderate mitral regurgitation 07/20/2022 Overweight (BMI 25.0-29.9) 01/13/2022 Polyneuropathy following chemotherapy Gastroesophageal reflux disease with eso phagitis without hemorrhage 05/27/2020 C. difficile colitis 05/27/2020 Overview: Chronic pending fecal transplant Hypothyroidism due to acquired atrophy o f thyroid 10/25/2017 Post-mastectomy lymphedema syndrome 08/11 History of breast cancer 01/26/2017 Bipolar depression 11/01/2015 MCI (mild cognitive impairment) 11/06/19 Dyslipidemia 02/09/2014 Chronic interstitial cystitis 02/13/2008 Fatty liver 09/19/2002 Overview: steatohepatitis Displacement of cervical intervertebral disc without myelopathy 03/08/2002 Overview: L C2-3,C3-4,C4-5; Rc4-5,C5-6, post subluxation,mild,C3-4 HTN, goal below 130/80 04/29/2001 documented as of this encounter (statuses as of 01/22/2023) Resolved Problems Problem Noted Date Resolved Date [...] as of this encounter (statuses as of 01/22/2023) Immunizations Name Administration Dates Next Due COVID-19 [...] encounter Miscellaneous Notes * Telephone Encounter - Veronika Tenorio RN - 01/22/2023 10:53 AM EDT TE with pt regarding new medication and follow up labs. Will follow up for repeat bp check. * Telephone Encounter - Bonnie Trevizo MD - 01/21/2023 10:30 PM EDT Noted and appreciated. Recommend -hctz 6.25 mg trial (1/2 of 12.5 mg tab) --recheck bmp after 10 days on new med -keep date for recheck of BP later this month * Telephone Encounter - Veronika Tenorio RN - 01/20/2023 11:29 AM EDT TE with pt's regarding lab results and review of medications. He reports that she HAS NOT been on Celebrex for a long time. Med list is now updated. Of note, she is currently on Losartan 100mg daily and Amlodipine 10mg daily. Please advise if any additional changes need made after this review. * Telephone Encounter - Veronika Tenorio RN - 01/20/2023 11:24 AM EDT ----- Message from Bonnie Trevizo MD sent at 01/20/2023 9:38 AM EDT ----- Kidney labs coming back toward baseline but not quite there on blood test; urine ok >noted after OV she's on celebrex >> not a good drug for renal pts >> is this new? Can cause worse BP and renal function >recommend work w/ rx'ing provider on alteratnive to celeberx -not on lisinopril/losartan and should be >> recommend lower amlodipine to 5 mg daily and start lisinopril 10 mg daily -recheck bmp after 10 days on new med -keep date for recheck of BP later this month documented in this encounter Plan of Treatment Upcoming Encounters Date Type Specialty Care Team Description 01/25/2023 Office Visit Orthopedics Ren Lyn, DO [address] [place] [address] 02/03/2023 Office Visit Gynecology Urology Joaquin Johns MD [address] [place] [address] Nurse Srinivasan Uronate Wilson [address] [place] [address] 03/09/2023 Hospital Encounter Surgery Minda Almodovar MD [address] [place] [address] 03/09/2023 Surgery Surgery Minda Almodovar MD [address] [place] [address] LAPAROSCOPIC CHOLECYSTECTOMY 03/23/2023 Office Visit General Surgery Minda Almodovar MD [address] [place] [address] 04/06/2023 Hospital Encounter Endoscopy Huyen Marmolejo DO [address] [place] [address] 04/06/2023 Surgery Endoscopy Huyen Marmolejo DO [address] [place] [address] COLONOSCOPY FLEXIBLE PROXIMAL DIAGNOSTIC 04/15/2023 Office Visit Otolaryngology Idalia Lora PA-C [address] [place] [address] 04/21/2023 Office Visit Family Medicine Dav Hargrove MD [address] [place] [address] 04/22/2023 Imaging Radiology 08/27/2023 Office Visit Allergy & Immunology Yordan Jones MD [address] [place] [address] 11/05/2023 Office Visit Nephrology Bonnie Trevizo MD [address] [facility] [place] [address] Scheduled Orders Name Type Priority Associated Diagnoses Orde r Schedule BASIC METABOLIC PANEL Lab Routine Stage 3a chronic kidney disease (HCC) Expected: 01/29/2023 (Approximate), Expires: 01/23/2024 Scheduled Procedures Name Priority Associated Diagnoses Date/Ti [...] this encounter Medical Devices Implanted Type Area Octave Board Assembler Device Identifier Shelf Expiration Date Model / Serial / Lot Sureclip 16mm 235cm - [id number] Implanted:Qty: 2 on 12/10/2022 by Junior Us MD at ENDOSCOPY [facility] Stomach MICRO TECH ENDOSCOPY 10/13/2023 [id number] / / [id number] documented as of this encounter Visit Diagnoses Diagnosis Stage 3a chronic kidney disease (HCC)- Primary Gallbladder polyp Cholesterolosis of gallbladder Diarrhea, unspecified type History of Clostridioides difficile infection documented in this encounter Care Teams Paper Production Engineer Relationship Specialty Start Date End Date Dav Hargrove MD [address] [place] [address] PCP - General Family Medicine 05/28/20 documented as of this encounter
--- OUTSIDE RECORDS SUMMARY | 2023-06-13 22:50 | External Medical Summary | Summary of Care ---
Author Name Unknown Organization [facility] Address [address] [facility] [place] [address] Phone [phone] Care Team Providers Care Larry Car Operator Name Role Phone Dav Hargrove MD Primary Care Provider [phone] Reason for Visit * Reason Onset Date Comments Test Results 01/21/2023 Encounter Details Date Type Department Care Team Description 01/21/2023 Telephone Gastroenterology, [facility] [address] [place] [address] Rama Rojas CRNP [address] [place] [address] Test Results Allergies Active Allergy Reactions Severity Noted Date [...] TIMES DAILY 270 Capsule 3 04/28/2022 Active Fluticasone Propionate 50 MCG/ACT [...] times a day. 0 07/17/2022 Active Ipratropium [place] 0.03 % Nasal Solution (Atrovent) USE 2 [...] MOUTH DAILY 90 Tablet 3 01/20/2023 Active documented as of this encounter (statuses [...] mRNA, LNP-s, No Pre serve, 2-Dose Series ([employer]) 07/02/2020,06/06/2020 Pneumococcal Conjugate Vacc, 13 Valent (Prevnar) [...] encounter Miscellaneous Notes * Telephone Encounter - Siobhan Patrick LPN - 01/22/2023 8:30 AM EDT myG read by pt * Telephone Encounter - Siobhan Patrick LPN - 01/21/2023 10:25 AM EDT ----- Message from DEVYN Markham sent at 01/21/2023 9:17 AM EDT ----- Please let her know there is moderate colonic constipation but no evidence of obstruction on her the x-ray. Recommend Miralax 1/2-1 capful daily May also use Metamucil or a fiber supplement daily to prevent diarrhea DEVYN Wilkerson 01/21/2023 9:17 AM documented in this encounter Plan of Treatment Upcoming Encounters Date Type Specialty Care Team Description 01/25/2023 Office Visit Orthopedics Ren Lyn DO [address] [place] [address] 02/03/2023 Office Visit Gynecology Urology Joaquin Johns MD [address] [place] [address] Nurse Cherelle Mattson [address] [place] [address] 02/11/2023 Office Visit Otolaryngology Idalia Lora PA-C [address] [place] [address] 03/09/2023 Hospital Encounter Surgery Minda Almodovar MD [address] [place] [address] 03/09/2023 Surgery Surgery Minda Almodovar MD [address] [place] [address] LAPAROSCOPIC CHOLECYSTECTOMY 03/23/2023 Office Visit General Surgery Minda Almodovar MD [address] [place] [address] 04/06/2023 Hospital Encounter Endoscopy Huyen Marmolejo, DO [address] [place] [address] 04/06/2023 Surgery Endoscopy Huyen Marmolejo, DO [address] [place] [address] COLONOSCOPY FLEXIBLE PROXIMAL DIAGNOSTIC 04/21/2023 Office Visit Family Medicine Dav Hargrove MD [address] [place] [address] 04/22/2023 Imaging Radiology 08/27/2023 Office Visit Allergy & Immunology Yordan Jones MD [address] [place] [address] 11/05/2023 Office Visit Nephrology Bonnie Trevizo MD [address] [place] [address] Scheduled Procedures Name Priority Associated Diagnoses Date/Ti [...] this encounter Medical Devices Implanted Type Area Bus Inspector Device Identifier Shelf Expiration Date Model / Serial / Lot Sureclip 16mm 235cm - [id number] Implanted:Qty: 2 on 12/10/2022 by Junior Us MD at ENDOSCOPY [facility] Stomach MICRO TECH ENDOSCOPY 10/13/2023 [id number] / / [id number] documented as of this encounter Care Teams Larry Car Operator Relationship Specialty Start Date End Date Dav Hargrove MD [address] [place] [address] PCP - General Family Medicine 05/28/20 documented as of this encounter
--- OUTSIDE RECORDS SUMMARY | 2023-06-13 22:50 | External Medical Summary | Summary of Care ---
Author Name Unknown Organization [facility] Address [address] [facility] [place] [address] Phone [phone] Care Team Providers Care Thread Spinner Name Role Phone Yaya Hargrove MD Primary Care Provider [phone] Reason for Visit * Reason Comments eRx-Medication Refill Encounter Details Date Type Department Care Team Description 01/19/2023 Refill Family Practice [facility] [address] [facility] [place] [address] Yaya Hargrove MD [address] [place] [address] HTN, goal below 140/90; Dyslipidemia, goal LDL below 130; Diastolic dysfunction; Chronic kidney disease with symptom management only, stage 3 (moderate) (HCC); HTN, goal below 130/80; Gastroesophageal reflux disease; Hypothyroidism; Hypertensive kidney disease with stage 3a chronic kidney disease (HCC) Allergies Active Allergy Reactions Severity Noted Date [...] as of this encounter (statuses as of 01/20/2023) Medications Medication Sig Dispensed Refills Start Date [...] for itching 30 g 0 01/12/2022 Active Methocarbamol 500 MG Oral Tablet (Robamol) [...] times a day. 0 07/17/2022 Active Ipratropium [place] 0.03 % Nasal Solution (Atrovent) USE 2 [...] MOUTH DAILY 90 Tablet 3 01/20/2023 Active Losartan Potassium 100 MG Oral Tablet (Cozaar)Indicatio ns:HTN, goal below 140/90,Hypertensi ve kidney disease with stage 3a chronic kidney disease (HCC) TAKE 1 TABLET BY MOUTH DAILY 90 Tablet 3 01/26/2022 3 Discontinued Pilocarpine HCl 5 MG Oral Tablet (Salagen) TAKE 1 TABLET BY MOUTH IN THE MORNING AND 1 TABLET BY MOUTH AT NOON AND 1 TABLET BY MOUTH BEFORE BEDTIME 270 Tablet 3 02/23/2022 3 Discontinued Furosemide 20 MG Oral Tablet (Lasix)Indication s:Diastolic dysfunction TAKE 1 TABLET BY MOUTH DAILY 90 Tablet 3 04/28/2022 3 Discontinued Famotidine 40 MG Oral Tablet (Pepcid)Indicatio ns:Gastroesophage al reflux disease TAKE 1 TABLET BY MOUTH AT BEDTIME 90 Tablet 3 04/28/2022 3 Discontinued Levothyroxine Sodium 125 MCG Oral Tablet (Levoxyl)Indicati ons:Hypothyroidis m TAKE 1 TABLET BY MOUTH DAILY WITH A GLASS OF WATER 90 Tablet 2 06/29/2022 3 Discontinued Pravastatin Sodium 80 MG Oral TabletIndications :Dyslipidemia, goal LDL below 130 TAKE 1 TABLET BY MOUTH ONCE DAILY 90 Tablet 1 08/31/2022 3 Discontinued amLODIPine Besylate 10 MG Oral Tablet (Norvasc)Indicati ons:Chronic kidney disease with symptom management only, stage 3 (moderate) (HCC),HTN, goal below 130/80 TAKE 1 TABLET BY MOUTH DAILY 90 Tablet 1 08/31/2022 3 Discontinued Atenolol 50 MG Oral Tablet (Tenormin)Indicat ions:HTN, goal below 140/90 TAKE 1 TABLET BY MOUTH ONCE DAILY 90 Tablet 1 08/31/2022 3 Discontinued documented as of this encounter (statuses as of 01/20/2023) Active Problems Problem Noted Date Moderate mitral [...] as of this encounter (statuses as of 01/20/2023) Resolved Problems Problem Noted Date Resolved Date [...] as of this encounter (statuses as of 01/20/2023) Immunizations Name Administration Dates Next Due COVID-19 [...] Miscellaneous Notes * Telephone Encounter - Yaya Hargrove MD - 01/20/2023 9:39 AM EDTSigned Prescriptions: Disp Refills Atenolol 50 MG Oral Tablet (Tenormin) 90 Tab*2 Sig: TAKE 1 TABLET BY MOUTH ONCE DAILY Authorizing Provider: YAYA HARGROVE Ordering User: [place] T[place] Pravastatin Sodium 80 MG Oral Tablet 90 Tab*2 Sig: TAKE 1 TABLET BY MOUTH ONCE DAILY Authorizing Provider: YAYA HARGROVE Ordering User: [place] TAYLOR< BR> Furosemide 20 MG Oral Tablet (Lasix) 90 Tab*3 Sig: TAKE 1 TABLET BY MOUTH DAILY Authorizing Provider: YAYA AHRGROVE Ordering User: [place] TAYLOR amLODIPine Besylate 10 MG Oral Tablet (Nor*90 Tab*3 Sig: TAKE 1 TABLET BY MOUTH DAILY Authorizing Provider: YAYA HARGROVE Ordering User: [place] TAYLOR Pilocarpine HCl 5 MG Oral Tablet (Salagen) 270 Ta*3 Sig: T CARI 1 TABLET BY MOUTH IN THE MORNING AND 1 TABLET BY MOUTH AT NOON AND 1 TABLET BY MOUTH BEFORE BEDTIME Authorizing Provider: YAYA HARGROVE Famotidine 40 MG Oral Tablet (Pepcid) 90 Tab*3 Sig: TAKE 1 TABLET BY MOUTH AT BEDTIME Authorizing Provider: YAYA HARGROVE Ordering User: [place] TAYLOR Levothyroxine Sodium 125 MCG Oral Tablet (*90 Tab*3 Sig: ADRIANNE E 1 TABLET BY MOUTH DAILY WITH A GLASS OF WATER Authorizing Provider: YAYA HARGROVE Ordering User: [place] TAYLOR Losartan Potassium 100 MG Oral Tablet (Coz*90 Tab*3 Sig: TAKE 1 TABLET BY MOUTH DAILY Authorizing Provider: YAYA HARGROVE Ordering User: [place] TAYLOR * Telephone Encounter - [place] Taylor [facility] - 01/20/2023 9:37 AM EDTPending Prescriptions: Disp Refills Pilocarpine HCl 5 MG Oral Tablet (Salagen) 270 Ta*3 Sig: TAKE 1 TABLET BY MOUTH IN THE MORNING AND 1 TABLET BY MOUTH AT NOON AND 1 TABLET BY MOUTH BEFORE BEDTIME Signed Prescriptions: Disp Refills Atenolol 50 MG Oral Tablet (Tenormin) 90 Tab*2 Sig: TAKE 1 TABLET BY MOUTH ONCE DAILY Au thorizing Provider: YAYA HARGROVE Ordering User: [place] TAYLOR Pravastatin Sodium 80 MG Oral Tablet 90 Tab*2 Sig: TAKE 1 TABLET BY MOUTH ONCE DAILY Authorizing Provider: YAYA HARGROVE Ordering User: [place] TAYLOR Furosemide 20 MG Oral Tablet (Lasix) 90 Tab*3 Sig: TAKE 1 TABLET BY MOUTH DAILY Authorizing Provider: YAYA HARGROVE Ordering User: [place] MOYA amLODIPine Besylate 10 MG Oral Tablet (Nor*90 Tab*3 Sig: TAKE 1 TABLET BY MOUTH DAILY Authorizing Provider: YAYA HARGROVE Ordering User: [place] TAYLOR Famotidine 40 MG Oral Tablet (Pepcid) 90 Tab*3 Sig: TAKE 1 TABLET BY MOUTH AT BEDTIME Authorizing Provider: YAYA HARGROVE Ordering User: [place] TAYLOR Levothyroxine Sodium 125 MCG Oral Tablet (*90 Ta b*3 Sig: TAKE 1 TABLET BY MOUTH DAILY WITH A GLASS OF WATER Authorizing Provider: YAYA HARGROVE Ordering User: [place] TAYLOR Losartan Potassium 100 MG Oral Tablet (Coz*90 Tab*3 Sig: TAKE 1 TABLET BY MOUTH DAILY Authorizing Provider: YAYA HARGROVE Ordering User: [place] TAYLOR * Telephone Encounter - [place] Taylor [facility] - 01/20/2023 9:37 AM EDT [facility] is currently not authorized to approve refills for the pended medication(s) per refill protocol. Please approve if appropriate. Thank you, [place] Taylor [facility] Clinical Pharmacist [facility] ([facility]) (formerly Telepharmacy) 01/20/23 9:37 AM [phone] * Telephone Encounter - [place] Taylor [facility] - 01/20/2023 9:31 AM EDT Did you pend patient's preferred pharmacy and medication before forwarding?yes Pharmacy: [facility] Pending Prescriptions: Disp Refills Pilocarpine HCl 5 MG Oral Tablet (Salagen*270 Ta*3 Sig: TAKE 1 TABLET BY MOUTH IN THE MORNING AND 1 TABLET BY MOUTH AT NOON AND 1 TABLET BY MOUTH BEFORE BEDTIME Last Visit: 01/04/2023 (in office), 01/22/2021 (telemedicine) Next Visit: 04/21/2023 If no future appointments scheduled, and last appointment is greater than a year ago, please schedule patient for a follow-up appointment Last date the medication was ordered: 02/23/2022 Is this request for a controlled substance?No [...] Gastroenterology Rama Rojas CRNP [address] [place] [address] 01/25/2023 Office Visit Orthopedics Ren Lyn DO [address] [place] [address] 02/03/2023 Office Visit Gynecology Urology Joaquin Johns MD [address] [place] [address] Nurse Cherelle Mattson [address] [place] [address] 02/11/2023 Office Visit Otolaryngology Idalia Lora PA-C [address] [place] [address] 03/09/2023 Hospital Encounter Surgery Minda Almodovar MD [address] [place] [address] 03/09/2023 Surgery Surgery Minda Almodovar MD [address] [place] [address] LAPAROSCOPIC CHOLECYSTECTOMY 03/23/2023 Office Visit General Surgery Minda Almodovar MD [address] [place] [address] 04/06/2023 Hospital Encounter Endoscopy Huyen Marmolejo, DO [address] [place] [address] 04/06/2023 Surgery Endoscopy Huyen Marmolejo, DO [address] [place] [address] COLONOSCOPY FLEXIBLE PROXIMAL DIAGNOSTIC 04/21/2023 Office Visit Family Medicine Yaya Hargrove MD [address] [place] [address] 04/22/2023 Imaging Radiology 08/27/2023 Office Visit Allergy & Immunology Yordan Jones MD [address] [place] [address] 11/05/2023 Office Visit Nephrology Bonnie Trevizo MD [address] [place] [address] Scheduled Procedures Name Priority Associated Diagnoses Date/Ti [...] this encounter Medical Devices Implanted Type Area Automotive Buyer Device Identifier Shelf Expiration Date Model / Serial / Lot Sureclip 16mm 235cm - [id number] Implanted:Qty: 2 on 12/10/2022 by Junior Us MD at ENDOSCOPY [facility] Stomach MICRO TECH ENDOSCOPY 10/13/2023 [id number] / / [id number] documented as of this encounter Visit Diagnoses Diagnosis HTN, goal below 140/90 Unspecified essential hypertension Dyslipidemia, goal LDL below 130 Other and unspecified hyperlipidemia Diastolic dysfunction Heart disease, unspecified Chronic kidney disease with symptom management only, stage 3 (moderate) (HCC) HTN, goal below 130/80 Unspecified essential hypertension Gastroesophageal reflux disease Esophageal reflux Hypothyroidism Unspecified hypothyroidism Hypertensive kidney disease with stage 3a chronic kidney disease (HCC) Gallbladder polyp Cholesterolosis of gallbladder Diarrhea, unspecified type History of Clostridioides difficile infection documented in this encounter Care Teams Thread Spinner Relationship Specialty Start Date End Date Yaya Hargrove MD [address] [place] [address] PCP - General Family Medicine 05/28/20 documented as of this encounter
--- OUTSIDE RECORDS SUMMARY | 2023-06-13 22:50 | External Medical Summary | Summary of Care ---
Author Name Unknown Organization [facility] Address [address] [facility] [place] [address] Phone [phone] Care Team Providers Care Business Insurance Agent Name Role Phone Dav Hargrove MD Primary Care Provider [phone] [phone] Reason for Visit * Reason Comments Follow Up Would like to talk a bout constipation / abdominal pain Encounter Details Date Type Department Care Team Description 01/20/2023 Office Visit Gastroenterology, [facility] [address] [place] [address] Rama Rojas CRNP [address] [place] [address] Diarrhea, unspecified type*; Constipation, unspecified constipation type Allergies Active Allergy Reactions Severity Noted Date [...] times a day. 0 07/17/2022 Active Ipratropium [place] 0.03 % Nasal Solution (Atrovent) USE 2 [...] MOUTH DAILY 90 Tablet 3 01/20/2023 Active ProAir HFA 108 (90 Base) MCG/ACT Inhalation Aerosol SolutionIndicatio ns:Wheeze Inhale by mouth 2 Puffs every 4 hours as needed for Wheezing. 18 g 0 10/19/2021 3 Discontinued Betamethasone Dipropionate 0.05 % External Cream (Diprosone) Apply to both outer ears every other night for itching 30 g 0 01/12/2022 3 Discontinued documented as of this encounter [...] Sign Reading Time Taken Comments Blood Pressure 138/72 01/20/2023 12:32 PM EDT Pulse 74 01/20/2023 12:32 PM EDT Temperature 36.6 C (97.8 F) 01/20/2023 12:32 PM E DT Respiratory Rate 16 01/20/2023 12:32 PM EDT Oxygen Saturation 94% 01/20/2023 12:32 PM EDT Inhaled Oxygen Concentration - - Weight 84.9 kg (187 lb 1.6 oz) 01/20/2023 12:32 PM EDT Height - - Body Mass Index 29.3 12/07/2022 1:36 PM EDT documented in this encounter Progress Notes * DEVYN Markham - 01/20/2023 12:30 PM EDT DATE OF SERVICE: 01/20/2023 REFERRING PHYSICIAN: Dav Hargrove MD CC: constipation, abd pain Office Visit 01/20/2023 : Here for acute constipation. Notes this is the first time this has happened. Notes she was started on some carafate by her PCP for GERD and was not sure if it was related tothe medication. ABX: frequent courses as she has had 15+ UTIs since summer C.diff 03/17/19: positive Treated w/ QID vancomycin x 7 days C.diff 04/26/19: positive C.diff 11/17/19: positive Treated w/ Vanco Taper ABD US 2022: Hepatomegaly with hepatic steatosis. Borderline enlarged spleen. Bilateral renal cysts. ABD US 2020: Probable small gallbladder polyp of 5 mm GES 2020: Normal solid phase gastric emptying study. ABD US 2020: Hepatic steatosis.. Probable gallbladder polyp.Mildly complicated right renal cyst with associated calcification.Recommendations: Consider six- month follow-up right upper quadrant ultrasound KUB 2020: Moderate amount of stool in the right colon. Nonspecific and nonobstructive bowel gas pattern. EUS 2023: Normal esophagus. - A single gastric polyp. [...] - The celiac trunk was endosonographically normal. EGD 2020: Normal esophagus. Biopsied.Z-line appeared regular. Normal stomach. Biopsied.Normal duodenal bulb and second portion of the duodenum. Biopsied. Colonoscopy 2019: The examined colon appeared normal. One 12 mm polyp in the ascending colon, removed with a cold snare. Resected and retrieved. Clips (MR conditional) were placed. Sigmoid diverticulosis.The examination was otherwise normal on direct and retroflexion views. EGD 2017: Normal esophagus.Normal stomach. Normal duodenal bulb and second portion of the duodenum.The KAT pH capsule was positioned 30 cm from the incisors, which was 6 cm proximal to the [place]. No specimens collected Colonoscopy 2014: One 3 mm polyp in the ascending colon. Resected and retrieved.One 5 mm polyp in the ascending colon. Resected and retrieved. Diverticulosis in the sigmoid colon and in the distal descending colon.The examination was otherwise normal on direct and retroflexion views Past Medical History: Diagnosis Date Acid reflux [...] tinnitus 01/21/2013 Temporomandibular joint disorders, unspecified 07/14/2010 Family History Problem Relation Age of Onset Hypertension Mother upper 80s Dementia Mother Other (poor circulation) Mother Other (diabetic) Father Cancer No significant family history Heart Disorder No significant family history Stroke No significant family history Thyroid Disorder No significant family history Eye Problems No significant family history Denies FH: AMD, Glaucoma, RD's or Blindness Breast Cancer No significant family history Past Surgical History: Procedure Laterality Date ANESTHESIA FOR CAT OR MRI SCAN N/A 01/14/2023 ANESTHESIA FOR NON-INVASIVE IMAGING (MRI OR CT) performed by [facility] And [place] [facility] [place] [facility] [place] ARTHROPLASTY KNEE TOTAL left BIOPSY OF BREAST, OPEN Left 05/23/2014 benign-nipple surgery BX LYMPH NODE DEEP AXIL 03/14/2013 03/14/2013 Left axillary lymph node dissection.dX: metastatic carcinoma seen in 16 & 21 examinated left lymph nodes Placement of right subclavian venous Port-A-Cath 03/14/13 [place] [facility] [place] [employer] Professor Yvette Kaur PA-C CERVICAL HEMILAMINECTOMY cage CHEMOTHERAPY 2012 left breast CA COLONOSCOPY W/ BIOPSY (RECTUM) 06/27/2009 await path & aspirate results, diverticulosis & Ext Hemmorrhoids COLONOSCOPY W/ LESION REMOVAL, SNARE 07/30/2006 repeat 5 yrs repeat in 5 years COLONOSCOPY, DIAGNOSTIC (RECTUM) 09/21/2014 adenomatous polyps, diverticulosis, repeat 5 yrs/COLONOSCOPY FLEXIBLE PROXIMAL DIAGNOSTIC performedby Bryn Christiansen MD at ENDOSCOPY [facility] COLONOSCOPY, DIAGNOSTIC (RECTUM) 09/13/2019 sigmoid diverticulosis/biopsies show adenomatous polyps/recall 2 years/COLONOSCOPY FLEXIBLE PROXIMAL DIAGNOSTIC performed by Whit Martínez MD at ENDOSCOPY [facility] COLONOSCOPY, DIAGNOSTIC (RECTUM) N/A 09/01/2022 benign adenomatous polyps, diverticulosis, repeat 3 yrs / COLONOSCOPY FLEXIBLE PROXIMAL DIAGNOSTIC performed by Walt Muniz MD at ENDOSCOPY [facility] CYSTOSCOPY 11/19/2008 with sounds CYSTOSCOPY 09/24/2006 EGD, FLEXIBLE, DIAGNOSTIC 04/08/09 done normal exam EGD, FLEXIBLE, DIAGNOSTIC 03/30/2012 UPPER GI ENDOSCOPY DIAGNOSTIC performed by Walt Muniz MD at ENDOSCOPY [facility] EGD, FLEXIBLE, DIAGNOSTIC 07/06/2017 KAT - normal results / [facility] EGD, FLEXIBLE, DIAGNOSTIC 08/30/2020 Normal scope / biopsies from your duodenum and stomach returned normal, showed reflux / ESOPHAGOGASTRODUODENOSCOPY (EGD), FLEXIBLE, TRANSORAL, DIAGNOSTIC performed by Whit Martínez MD at ENDOSCOPY [facility] EGD, W/ENDOSCOPIC US 12/10/2022 gastric polyp/sludge and polyp gallbladder/biopsies normal/ESOPHAGOGASTRODUODENOSCOPY (EGD), FLEXIBLE, TRANSORAL, ENDOSCOPIC ULTRASOUND performed by Junior Us MD at ENDOSCOPY [facility] EXPLORATION OF NIPPLE Left 05/23/2014 05/23/2014 NIPPLE EXPLORATION Dx no evidence of invasive carcinoma , proliferative fibrocystic changes Left performed by Minda Almodovar MD at OR [facility] INFORMATION Low back surgery INFORMATION 05/13/2008 neck [...] performed by Nuha Dsouza DPM at OR [facility] REVISE UPPER EYELID/EXCESS SKIN Bilateral 11/07/2014 [place] US GUIDED BREAST BIOPSY LEFT Left 01/03/2013 malignant Social History Tobacco Use Smoking status: Never Smokeless tobacco: Never Tobacco comments: no passive smoke Vaping Use Vaping Use: Never used Substance Use Topics Alcohol use: No Drug use: No Review of patient's allergies indicates: Allergen Reactions Flagyl [Metronidazole Hcl] Hives Baclofen Neuro complications (Please comment) Speech issues, ect Other reaction(s): unknown Ciprofloxacin Rash +pain in feet +"almost " Other reaction(s): unknown Macrobid [Nitrofurantoin] Rash - pt denies Metronidazole Other reaction(s): hives Sulfa Antibiotics Hives Zolpidem Other reaction(s): delusional Protonix [Pantoprazole Sodium Sesquihydrate] Other (Please comment) headache Current Outpatient Medications Medication Sig Dispense Refill [...] Tablet by mouth as needed for Gas. LORazepam (ATIVAN) 1 MG Tablet Take 1 Tablet by mouth as needed. promethazine (PHENERGAN) 25 MG Tablet Take 1 Tablet by mouth every 4 hours as needed for Nausea. meclizine (ANTIVERT) 25 MG Tablet TAKE 2 TABLETS BY MOUTH 3 TIMES A DAY NEEDED FOR DIZZINESS 180Tab 0 ondansetron (ZOFRAN) 4 MG Tablet Take 1 Tab by mouth every 12 hours as needed for Nausea. 20 Tab 0 Misc. Devices Refurbish current custom molded inserts - hindfoot varus post (lateral) 1 Each 0 ProAir HFA 108 (90 Base) MCG/ACT Inhalation Aerosol Solution Inhale by mouth 2 Puffs every 4 hours as needed for Wheezing. 18 g 0 Methocarbamol 500 MG Oral Tablet (Robamol) Take 1 Tablet by mouth in the morning and 1 Tablet at noon and 1 Tablet in the evening and 1 Tablet before bedtime. Gabapentin 300 MG Oral Capsule (Neurontin) TAKE 1 CAPSULE BY MOUTH 3 TIMES DAILY 270 Capsule 3 Fluticasone Propionate 50 MCG/ACT Nasal Suspension (Flonase) [...] by mouth 3 times a day. Ipratropium [place] 0.03 % Nasal Solution (Atrovent) USE 2 [...] TABLET BY MOUTH DAILY 90 Tablet 3 Betamethasone Dipropionate 0.05 % External Cream (Diprosone) Apply to both outer ears every other night for itching 30 g 0 Fluocinonide 0.05 % External Gel Apply topically to affected area 2 times a day. No current facility-administered medications for this visit. REVIEW OF SYSTEMS: All other findings negative except as noted in HPI. EXAM: BP 138/72 | Pulse 74 | Temp 36.6 C (97.8 F) | Resp 16 | Wt 84.9 kg (187 lb 1.6 oz) | SpO2 94% |BMI 29.30 kg/m | BSA 2 m GENERAL: Well developed and well nourished in no acute distress. SKIN: No rashes, ulcers, jaundice or spider angiomata. HEENT: Normocephalic, sclera clear, pharynx normal. NECK: Supple, no lymphadenopathy. LUNGS: Clear to auscultation bilaterally, no respiratory distress or accessory muscles used. HEART: Regular rate & rhythm, no murmurs and no gallops. ABDOMEN: Normal bowel sounds, soft and nontender, no masses or hepatosplenomegaly. EXTREMITIES: No palmar erythema, no ankle edema, no skin discoloration, no clubbing, no cyanosis. NEURO: No lateralizing findings. Sensory/Motor grossly normal. 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 overdue for recall colonoscopy, EUS w/ sludge scheduled for [facility] here with acute constipation - KUB - Due for colonoscopy - History of chronic c.diff - Take 14 day course of QID vanco while on other ABX - Fecal transplant was discussed - Will order and arrange when we are able but stool transplant is currently on hold due to COVID [facility] - Again, was advised she could call her insurance and see if other facilities are in [place] - [place] as ordered - Continue GERD therapy as doing - ED for emergencies - Please call with any questions or concerns RETURN TO CLINIC: 9 months I spent a total of 30 minutes on the date of service in review of patient's record, and previously obtained information in person and appropriate medical visit, discussion and education of plan, withpatient and/or caregiver, placing orders for tests/referral/procedures as medically necessary and documentation of pertinent clinical information in patient's medical records for their visit today. DEVYN Wilkerson 01/20/2023 12:52 PM documented in this encounter Nursing Notes * Tara Gilmore RN - 01/20/2023 12:34 PM EDT Patient identified by full name and date of Chief Complaint Patient presents with Follow Up Would like to talk about constipation / abdominal pain documented in this encounter Plan of Treatment Upcoming Encounters Date Type Specialty Care Team Description 01/25/2023 Office Visit Orthopedics Ren Lyn DO [address] [place] [address] 02/03/2023 Office Visit Gynecology Urology Joaquin Johns MD [address] [place] [address] Nurse Cherelle Mattson [address] [place] [address] 02/11/2023 Office Visit Otolaryngology Idalia Lora PA-C [address] [place] [address] 03/09/2023 Hospital Encounter Surgery Minda Almodovar MD [address] [place] [address] 03/09/2023 Surgery Surgery Minda Almodovar MD [address] [place] [address] LAPAROSCOPIC CHOLECYSTECTOMY 03/23/2023 Office Visit General Surgery Minda Almodovar MD [address] [place], [place] [address] 04/06/2023 Hospital Encounter Endoscopy Huyen Marmolejo, DO [address] [place], [place] [address] 04/06/2023 Surgery Endoscopy Huyen Marmolejo, DO [address] [place], [place] [address] COLONOSCOPY FLEXIBLE PROXIMAL DIAGNOSTIC 04/21/2023 Office Visit Family Medicine Dav Hargrove MD [address] [place] [address] 04/22/2023 Imaging Radiology 08/27/2023 Office Visit Allergy & Immunology Yordan Jones MD [address] [place] [address] 11/05/2023 Office Visit Nephrology Bonnie Trevizo MD [address] [place] [address] Pending Results Name Type Priority Associated Diagnoses Date /Time XR ABDOMEN 1 VIEW Medical Imaging Routine Diarrhea, unspecified type Constipation, unspecified constipation type 01/20/2023 1:06 PM EDT Scheduled Procedures Name Priority Associated [...] this encounter Medical Devices Implanted Type Area Assistant Production Editor Device Identifier Shelf Expiration Date Model / Serial / Lot Sureclip 16mm 235cm - [id number] Implanted:Qty: 2 on 12/10/2022 by Junior Us MD at ENDOSCOPY [facility] Stomach MICRO TECH ENDOSCOPY 10/13/2023 [id number] / / [id number] documented as of this encounter Visit Diagnoses Diagnosis Diarrhea, unspecified type- Primary Constipation, unspecified constipation type Gallbladder polyp Cholesterolosis of gallbladder Diarrhea, unspecified type History of Clostridioides difficile infection documented in this encounter Care Teams Business Insurance Agent Relationship Specialty Start Date End Date Dav Hargrove MD [address] [place] [address] PCP - General Family Medicine 05/28/20 documented as of this encounter
--- OUTSIDE RECORDS SUMMARY | 2023-06-13 22:50 | External Medical Summary | Summary of Care ---
Author Name Unknown Organization [facility] Address [address] [facility] [place] [address] Phone [phone] Care Team Providers Care Inter Com Installer Name Role Phone Dav Hargrove MD Primary Care Provider [phone] [phone] Reason for Visit * Reason Comments NEW PATIENT Right ankle Encounter Details Date Type Department Care Team Description 01/25/2023 Office Visit Orthopaedics [facility] [address] [place] [address] Ren Lyn, [address] [facility] [place] [address] Peroneal tenosynovitis* Allergies Active Allergy Reactions Severity Noted Date [...] times a day. 0 07/17/2022 Active Ipratropium [place] 0.03 % Nasal Solution (Atrovent) USE 2 [...] MOUTH DAILY 90 Tablet 3 01/20/2023 Active hydroCHLOROthiazide 12.5 MG Oral Tablet (Hydrodiuril)Indica tions:Stage 3a chronic kidney disease (HCC) Take 0.5 Tablets by mouth in the morning. 15 Tablet 5 01/22/2023 Active Hospital, Clinic, or Other Facility Administered Medication Ordered Dose Route Frequency Start Date End Date Status lidocaine 1% 1 mL - triamcinolone acetonide 40 mg/mL 1 mL inj 2 mLIndications:Peroneal tenosynovitis 2 mL IJ ONCE 01/25/2023 01/25/2023 Ended documented as of this encounter (statuses [...] Rhinitis, nonallergic 06/03/2016 05/27/2020 Nasal turbinate hypertrophy 06/03/201605/131 History of nasal polyp 06/03/2016 7 Dysplastic [...] mRNA, LNP-s, No Pre serve, 2-Dose Series ([employer]) 07/02/2020,06/06/2020 Pneumococcal Conjugate Vacc, 13 Valent (Prevnar) [...] of this encounter Progress Notes * Ren Lyn DO - 01/25/2023 11:30 AM EDT Mary Dyer [id number] INJECTION NOTE Mary Dyer is a 77 year old female who presents to [facility] for Right peroneal tendon sheath injection Request by Dr Dsouza Assessment and Plan: f/u my chart update [address] Dsouza, ri PRN, see procedure note 1) Peroneal tenosynovitis (Primary) - lidocaine 1% 1 mL - triamcinolone acetonide 40 mg/mL 1 mL inj 2 mL - POINT OF CARE US MAJOR JOINT INJECTION, ORTHO Ren Lyn DO Primary Care Sports Medicine [facility] [place] [address] Procedure note (ankle injection), right [...] documented in this encounter Nursing Notes * Rocael Aquino, MED ASSIST - 01/25/2023 11:22 AM EDT New patient right ankle pain. documented in this encounter Plan of Treatment Upcoming Encounters Date Type Specialty Care Team Description 01/25/2023 Imaging Radiology Arrived 02/03/2023 Office Visit Gynecology Urology Joaquin Johns MD [address] [place] [address] Nurse Cherelle Mattson [address] [place] [address] 03/09/2023 Hospital Encounter Surgery Minda Almodovar MD [address] [place] [address] 03/09/2023 Surgery Surgery Minda Almodovar MD [address] [place] [address] LAPAROSCOPIC CHOLECYSTECTOMY 03/23/2023 Office Visit General Surgery Minda Almodovar MD [address] [place] [address] 04/06/2023 Hospital Encounter Endoscopy Huyen Marmolejo, DO [address] [place] [address] 04/06/2023 Surgery Endoscopy Huyen Marmolejo, DO [address] [place] [address] COLONOSCOPY FLEXIBLE PROXIMAL DIAGNOSTIC 04/15/2023 Office Visit Otolaryngology Idalia Lora PA-C [address] [place] [address] 04/21/2023 Office Visit Family Medicine Dav Hargrove MD [address] [place] [address] 04/22/2023 Imaging Radiology 08/27/2023 Office Visit Allergy & Immunology Yordan Jones MD [address] [facility] [place] [address] 11/05/2023 Office Visit Nephrology Bonnie Trevizo MD [address] [place] [address] Scheduled Procedures Name Priority Associated Diagnoses Date/Ti [...] this encounter Medical Devices Implanted Type Area Swamper Device Identifier Shelf Expiration Date Model / Serial / Lot Sureclip 16mm 235cm - [id number] Implanted:Qty: 2 on 12/10/2022 by Junior Us MD at ENDOSCOPY [facility] Stomach MICRO TECH ENDOSCOPY 10/13/2023 [id number] / / [id number] documented as of this encounter Procedures Procedure Name Priority Date/Time Associated Diagnosis Comments POINT OF CARE US MAJOR JOINT INJECTION, ORTHO Routine 01/25/2023 10:37 AM EDT Peroneal tenosynovitis documented in this encounter Results * POINT OF CARE US MAJOR JOINT INJECTION, ORTHO (01/25/2023 10:37 AM EDT) Anatomical Region Laterality Modality Musculoskeletal Radiographic Shannan ging 01/25/2023 10:3 7 AM EDT Narrative 01/25/2023 11:48 AM EDT [facility] - Ultrasound Program Exam Date: 01/25/2023 Exam Type: Ortho Supervisor Small Appliance Assembly: Ren Lyn Attending: Ren Lyn Worksheet: Ortho Injection Exam Information: Impression: Procedure Note, 1st carpal metacarpal joint, Bilateral: Time out: Prior to injection, a time out was called to confirm the administration of appropriate medicine, patient name, procedure and confirm to the best of our ability and knowledge the presence of any necessary risks and benefits. Patient verbalizes understanding. Ultrasound utilized to guide injection Ultrasound required due to: high risk for complications without ultrasound guideance (risk for neurovascular damage) - This procedure has been explained to the patient in detail - Skin cleansed with alcohol swab. - Area numbed with ethyl chloride spray - injected using 25 g 1.5 inch needle, lidocaine 1% 1 mL - triamcinolone acetonide 40 mg/mL 1 mL inj 2 mLinto carpal space under direct ultrasound guideance -minimal bleeding noted - dressing applied. - Patient was instructed on local wound care and the signs and symptoms of a possible wound infection. Ren Lyn DO [place] [address] Physician Signature: I reviewed the images and approve the documentation above.: Signed by Ren Lyn on Wednesday, January 25, 2023 at 11:47:13 AM Procedure Note Ren Lyn DO - 01/25/2023 [facility] - Ultrasound Program Exam Date: 01/25/2023 Exam Type: Ortho Supervisor Small Appliance Assembly: Ren Lyn Attending: Ren Lyn Worksheet: Ortho Injection Exam Information: Impression: Procedure Note, 1st carpal metacarpal joint, Bilateral: Time out: Prior to injection, a time out was called to confirm the administration ofappropriate medicine, patient name, procedure and confirm to the best ofour ability and knowledge the presence of any necessary risks andbenefits. Patient verbalizes understanding. Ultrasound utilized to guide injection Ultrasound required due to: high risk for complications without ultrasoundguideance (risk for neurovascular damage) - This procedure has been explained to the patient in detail - Skin cleansed with alcohol swab. - Area numbed with ethyl chloride spray - injected using 25 g 1.5 inch needle, lidocaine 1% 1 mL - triamcinoloneacetonide 40 mg/mL 1 mL inj 2 mLinto carpal space under direct ultrasoundguideance -minimal bleeding noted - dressing applied. - Patient was instructed on local wound care and the signs and symptoms ofa possible wound infection. Ren Lyn DO [facility] [place] [address] Physician Signature: I reviewed the images and approve the documentation above.: Signed byRen Lyn on Wednesday, January 25, 2023 at 11:47:13 AM Ren Lyn DO RAD ULTRASOUND documented in this encounter Visit Diagnoses Diagnosis Peroneal tenosynovitis- Primary Other synovitis and tenosynovitis Gallbladder polyp Cholesterolosis of gallbladder Diarrhea, unspecified type History of Clostridioides difficile infection documented in this encounter Administered Medications Inactive Administered Medications - up to 3 most recent administrations Medication Order MAR Action Action Date Dose Rate Site lidocaine 1% 1 mL - triamcinolone acetonide 40 mg/mL 1 mL inj 2 mL 2 mL, Injection, ONCE, On 01/25/23 at 1200, For 1 dose, Lidocaine 1% 1mL Triamcinolone Acetonide 40 mg/mL 1 mL (Final concentration = 20 mg/mL) REFRIGERATE and SHAKE WELL Given 01/25/2023 11:38 AM EDT 2 mL Ankle Right documented in this encounter Care Teams Inter Com Installer Relationship Specialty Start Date End Date Dav Hargrove MD [address] [place] [address] PCP - General Family Medicine 05/28/20 documented as of this encounter
--- OUTSIDE RECORDS SUMMARY | 2023-06-13 22:50 | External Medical Summary | Summary of Care ---
Author Name Unknown Organization [facility] Address [address] [facility] [place] [address] Phone [phone] Care Team Providers Care Optician Manager Name Role Phone Dav Hargrove MD Primary Care Provider [phone] Reason for Visit * Reason Comments NEW PATIENT Right ankle Encounter Details Date Type Department Care Team Description 01/25/2023 Office Visit Orthopaedics [facility] [address] [place] [address] Ren Lyn, [address] [facility] [place] [address] Peroneal tenosynovitis* Allergies Active Allergy Reactions Severity [...] times a day. 0 07/17/2022 Active Ipratropium [place] 0.03 % Nasal Solution (Atrovent) USE 2 [...] mRNA, LNP-s, No Pre serve, 2-Dose Series (MDconnectME) 07/02/2020,06/06/2020 Pneumococcal Conjugate Vacc, 13 Valent (Prevnar) [...] - 01/25/2023 11:30 AM EDT Mary Dyer [id number] INJECTION NOTE Mary Dyer is a 77 year old female who presents to [facility] for Right peroneal tendon sheath injection Request by Dr Dsouza Assessment and Plan: f/u my chart update [address] Dsouza, de PRN, see procedure note 1) Peroneal tenosynovitis (Primary) - lidocaine 1% 1 mL - triamcinolone acetonide 40 mg/mL 1 mL inj 2 mL - POINT OF CARE US MAJOR JOINT INJECTION, ORTHO Ren Lyn DO Primary Care Sports Medicine [facility] [place] [address] Procedure note (ankle injection), right [...] Urology Joaquin Johns MD [address] [place] [address] Nurse Cherelle Mattson [address] [place] [address] 03/09/2023 Hospital Encounter Surgery Minda Almodovar MD [address] [place] [address] 03/09/2023 Surgery Surgery Minda Almodovar MD [address] [place] [address] LAPAROSCOPIC CHOLECYSTECTOMY 03/23/2023 Office Visit General Surgery Minda Almodovar MD [address] [place] [address] 04/06/2023 Hospital Encounter Endoscopy Huyen Marmolejo, DO [address] [place] [address] 04/06/2023 Surgery Endoscopy Huyen Marmolejo, DO [address] [place] [address] COLONOSCOPY FLEXIBLE PROXIMAL DIAGNOSTIC 04/15/2023 Office Visit Otolaryngology Idalia Lora PA-C [address] [place] [address] 04/21/2023 Office Visit Family Medicine Dav Hargrove MD [address] [place] [address] 04/22/2023 Imaging Radiology 08/27/2023 Office Visit Allergy & Immunology Yordan Jones MD [address] [facility] [place] [address] 11/05/2023 Office Visit Nephrology Bonnie Trevizo MD [address] [place] [address] Scheduled Orders Name Type Priority Associated Diagnoses Orde r Schedule POINT OF CARE US MAJOR JOINT INJECTION, ORTHO Medical Imaging Routine Peroneal tenosynovitis Ordered: 01/25/2023 Scheduled Procedures Name Priority Associated Diagnoses Date/Ti [...] this encounter Medical Devices Implanted Type Area Developer Analyst Device Identifier Shelf Expiration Date Model / Serial / Lot Sureclip 16mm 235cm - [id number] Implanted:Qty: 2 on 12/10/2022 by Junior Us MD at ENDOSCOPY [facility] Stomach MICRO TECH ENDOSCOPY 10/13/2023 [id number] / / [id number] documented as of this encounter Visit Diagnoses Diagnosis Peroneal tenosynovitis- [...] Right documented in this encounter Care Teams Optician Manager Relationship Specialty Start Date End Date Dav Hargrove MD [address] [place] [address] PCP - General Family Medicine 05/28/20 documented as of this encounter
--- OUTSIDE RECORDS SUMMARY | 2023-06-13 22:50 | External Medical Summary | Summary of Care ---
Author Name Unknown Organization [facility] Address [address] [facility] [address] Phone [phone] Care Team Providers Care Voip Network Engineer Name Role Phone Yaya Hargrove MD Primary Care Provider [phone] Reason for Visit * Reason Comments Chronic Kidney Disease (CKD) Follow up Encounter Details Date Type Department Care Team Description 01/12/2023 Office Visit Nephrology, Elmer Aragon [address] [facility] [place] [place] [address] Bonnie Trevizo MD 200 [facility] [place] [address] Stage 3a chronic kidney disease (HCC)*; HTN, goal below 130/80; [place] use Allergies Active Allergy Reactions Severity Noted Date [...] times a day. 0 07/17/2022 Active Ipratropium [place] 0.03 % Nasal Solution (Atrovent) USE 2 [...] at bedtime 120 Tablet 5 01/04/2023 Active Losartan Potassium 100 MG Oral Tablet [...] DAILY 90 Tablet 1 08/31/2022 3 Discontinued Cephalexin 500 MG Oral Capsule Take 1 Capsule by mouth in the morning and 1 Capsule before bedtime. Do all this for 10 days. 20 Capsule 0 01/04/2023 3 documented as of this encounter (statuses as [...] mRNA, LNP-s, No Pre serve, 2-Dose Series (Canlife) 07/02/2020,06/06/2020 Pneumococcal Conjugate Vacc, 13 Valent (Prevnar) [...] Sign Reading Time Taken Comments Blood Pressure 139/74 01/12/2023 9:23 AM EDT Pulse 69 01/12/2023 9:23 AM EDT Temperature 35.6 C (96.1 F) 01/12/2023 9:23 AM ED T Respiratory Rate 18 01/12/2023 9:23 AM EDT Oxygen Saturation 97% 01/12/2023 9:23 AM EDT Inhaled Oxygen Concentration - - Weight 87.1 kg (192 lb) 01/12/2023 9:23 AM EDT Height - - Body Mass Index 30.07 12/07/2022 1:36 PM EDT documented in this encounter Patient Instructions * Patient Instructions* Bonnie Trevizo MD - 01/12/2023 10:31 AM EDT -blood work later this week w/ neuro appt -recheck BP w/ KIDNEY nurse at neuro appt -avoid medicines like aleve, advil, ibuprofen, aspirin more than 81 mg daily and other NSAIDS whichare not good for kidney patients. Take only tylenol (acetaminophen) up to 2000 mg daily as needed for pain or as directed by your primary care provider. -no med changes for today documented in this encounter Progress Notes * Bonnie Trevizo MD - 01/12/2023 10:22 AM EDT NEPHROLOGY CLINIC NOTE Nephrology, Elmer Aragon 200 [facility] [place] [address] 01/12/2023, 10:22 AM Patient Name: Mary Dyer BACKGROUND: 77 year old female in follow-up of CKD 3 from lithium use, HTN, advancing age, microvascular disease, recurrent abtx for UTI here for follow up. Usually sees Dr Lucio PMH includes BRCA tx'd w CTX, XRT [id number], ongoing LUE lymphedema therapy, major depressive disorder w/ years of [place] therapy (started use approx 2009) and on lamictal, chronic C diff as of 2019, cerebrovascular disease w/ TIA 05/2014 and stroke 03/2013, HTN since at least early and w/o hx urgency, lumbar stenosis s/p surgery x 4, c spine surgery x 2, frequent UTI. Hx of aspiration PNA.Admitted [facility] fall 2017 w/ E coli bacteremia/urine cxs and CT suggestive of recent stone passage. No other hx of stones. Left shoulder replacement in Dec 2021. She fell while doing PT in the hospital and sustained a concussion. TODAY 01/12/2023: no acute interval events except Did have 3 recent UTI's w/ serial abtx. No voidingor const sx currently Lots of GI tests/ GB problems >> for upcoming cholecystectomy. Last year fo rshoulder replacemtn pt fell and had concussion >> still getting f/u for this and for [place] this [place] [facility] Still doing PT for shoulder. Acc by . REVIEW OF SYSTEMS: No F/C, unintended wt loss or gain, energy level and appetite acceptable No acute visual changes or REDDY No sinus, dental, throat pain No neck lumps/bumps or stiffness No palpitations, angina, orthopnea, mild RLE edema >> in wake of remote R foot surgery No cough, wheeze, or dyspnea No N/V/C/abd pain; HB very sx; occasional D No dysuria, hematuria, nocturia >2X; no new/worrisome voiding sx No rash or generalized itch No focal joint/muscle aches No inappropriate bleeding or bruising No tremor, seizures, focal or global weakness or paresthesias No presyncopal or orthostatic symptoms; no falls Current Outpatient Medications Medication Sig Dispense Refill [...] as needed for Wheezing. 18 g 0 Betamethasone Dipropionate 0.05 % External Cream (Diprosone) Apply to both outer ears every other night for itching 30 g 0 Losartan Potassium 100 MG Oral Tablet (Cozaar) TAKE 1 TABLET BY MOUTH DAILY (Patient taking differently: daily.) 90 Tablet 3 Methocarbamol 500 MG Oral Tablet (Robamol) Take 1 Tablet by mouth in the morning and 1 Tablet at noon and 1 Tablet in the evening and 1 Tablet before bedtime. Pilocarpine HCl 5 MG Oral Tablet (Salagen) TAKE 1 TABLET BY MOUTH IN THE MORNING AND 1 TABLET BY MOUTH AT NOON AND 1 TABLET BY MOUTH BEFORE BEDTIME 270 Tablet 3 Gabapentin 300 MG Oral Capsule (Neurontin) TAKE 1 CAPSULE BY MOUTH 3 TIMES DAILY 270 Capsule 3 Furosemide 20 MG Oral Tablet (Lasix) TAKE 1 TABLET BY MOUTH DAILY 90 Tablet 3 Famotidine 40 MG Oral Tablet (Pepcid) TAKE 1 TABLET BY MOUTH AT BEDTIME 90 Tablet 3 Fluticasone Propionate 50 MCG/ACT Nasal Suspension (Flonase) USE 2 SPRAYS IN BOTH NOSTRILS TWICE DAILY 96 g 4 Dicyclomine HCl 20 MG Oral Tablet (Bentyl) TAKE 1 TABLET BY MOUTH 4 TIMES DAILY NEEDED FOR CRAMPING AND FOR ABDOMINAL PAIN 360 Tablet 3 Levothyroxine Sodium 125 MCG Oral Tablet (Levoxyl) TAKE 1 TABLET BY MOUTH DAILY WITH A GLASS OF WATER 90 Tablet 2 traMADol HCl 50 MG Oral Tablet (Ultram) Take 2 Tablets by mouth every 6 hours as needed for Pain, Severe. 120 Tablet 2 tiZANidine HCl 2 MG Oral Tablet (Zanaflex) Take by mouth 3 times a day. Pravastatin Sodium 80 MG Oral Tablet TAKE 1 TABLET BY MOUTH ONCE DAILY (Patient taking differently:No sig reported) 90 Tablet 1 amLODIPine Besylate 10 MG Oral Tablet (Norvasc) TAKE 1 TABLET BY MOUTH DAILY (Patient taking differently: daily.) 90 Tablet 1 Atenolol 50 MG Oral Tablet (Tenormin) TAKE 1 TABLET BY MOUTH ONCE DAILY (Patient taking differently: daily.) 90 Tablet 1 Ipratropium [place] 0.03 % Nasal Solution (Atrovent) USE 2 SPRAYS IN BOTH NOSTRILS 4 TIMES DAILY 150 mL 3 Celecoxib 200 MG Oral Capsule (CeleBREX) Take 1 Capsule by mouth in the morning. Fluocinonide 0.05 % External Gel Apply topically to affected area 2 times a day. Gabapentin 100 MG Oral Capsule (Neurontin) Take [...] meals and at bedtime 120 Tablet 5 No current facility-administered medications for this visit. [...] [Pantoprazole Sodium Sesquihydrate] Other (Please comment) headache PHYSICAL EXAMINATION: BP Readings from Last 6 Encounters: 01/15/23 132/65 01/15/23 132/65 01/14/23 133/69 01/12/23 139/74 01/04/23 118/72 12/31/22 116/64 Wt Readings from Last 6 Encounters: 01/15/23 87.1 kg (192 lb) 01/12/23 87.1 kg (192 lb) 12/19/22 85.7 kg (189 lb) 12/07/22 86.6 kg (191 lb) 12/08/22 87.2 kg (192 lb 3.2 oz) 12/05/22 86.6 kg (191 lb) Pulse Readings from Last 6 Encounters: 01/15/23 79 01/15/23 79 01/14/23 70 01/12/23 69 01/04/23 68 12/31/22 96 NAD, oriented x 3, ambulatory w/o asst Normocephalic, atraumatic, eomi nonicteric sclerae MMM Supple neck RRR w/o m/g/r; trace RLE edema/ RLE distally wrapped CTAB w/ reasonable air mvt NT abd, +BS, soft No cyanosis or clubbing; R ankle wrapped; L wrist brace No rash No tremor, focal or global weakness; fluent speech, limits to hx at times LABS: Recent Labs Units 01/15/23 0922 12/31/22 1453 11/24/22 1116 04/16/22 1018 SODIUM - [facility] mmol/L 142 139 144 143 POTASSIUM - [facility] mmol/L 4.3 4.4 4.2 4.3 CHLORIDE - [facility] mmol/L 104 101 106 103 CO2 - [facility] mmol/L 25 24 24 27 BUN - [facility] mg/dL 11 14 13 12 CREATININE - [facility] mg/dL 1.2* 1.4* 1.1* 1.0 ESTIMATED GLOMERULAR FILTRATION RATE - [facility] mL/min 49* 38* 52* 58* Recent Labs Units 12/31/22 1317 01/02/22 0525 11/19/21 0000 10/06/21 1017 HGB - [facility] g/dL 12.8 11.6* -- 14.6 HEMOGLOBIN-OUTSIDE LAB MG/DL -- -- 14.5 -- Recent Labs Units 01/15/23 0922 12/31/22 1453 11/24/22 1116 04/16/22 1018 08/08/21 1252 05/15/21 1120 CALCIUM - [facility] mg/dL 9.6 9.5 9.9 9.9 < > 10.0 PHOSPHORUS - [facility] mg/dL 3.7 -- -- -- -- 4.1 25-HYDROXY VITAMIN D - [facility] ng/mL 39 -- -- -- -- -- PTH - [facility] pg/mL 43 -- -- -- -- -- < > = values in this interval not displayed. Recent Labs Units 11/19/21 0000 HEMOGLOBIN, [id number] LAB 4.9 Latest Reference Range & Units 11/22/18 09:50 07/04/19 13:03 Albumin / Creatinine Ratio, Urine <30 mg/g creat 187 (H) ALBUMIN / CREATININE RATIO, URINE Rpt ! PROTEIN/CREAT RATIO <150 mg/g 381 (H) Recent Labs Units 12/31/22 1506 11/03/22 0943 09/28/22 1628 08/22/22 1150 CLARITY, URINE - [facility] Slightly Cloudy* Cloudy* Clear Slightly Cloudy* GLUCOSE, URINE - [facility] mg/dL Negative Negative Negative Negative BILIRUBIN, URINE - [facility] Negative Negative Negative Negative KETONE, URINE - [facility] mg/dL Negative Negative Negative Negative SPECIFIC GRAVITY, URINE - [facility] 1.010 1.007 1.010 1.015 BLOOD, URINE - [facility] Small* Moderate* Negative Trace* PH, URINE - [facility] Units 6.5 7.0 7.0 7.0 PROTEIN, URINE - [facility] mg/dL 100* 30* Negative Negative UROBILINOGEN, URINE - [facility] mg/dL 0.2 Normal 0.2 0.2 NITRITE, URINE - [facility] Negative Negative Positive* Negative ESTERASE, URINE - [facility] Large* Large* Moderate* Large* BACTERIA, URINE - [facility] /HPF 26-50* 0-25 >200* 101-150* WBC, URINE - [facility] /HPF 50+* 50+* 50+* 50+* RBC, URINE - [facility] /HPF 0-2 50+* 0-2 3-5* Latest Reference Range & Units 05/15/21 11:24 10/06/21 10:21 04/16/22 10:18 11/24/22 11:16 [place] Level 0.6 - 1.2 mmol/L 0.8 0.6 0.6 0.6 ASSESSMENT AND PLAN: Stage 3a chronic kidney disease (HCC) (Primary) - BASIC METABOLIC PANEL - ALBUMIN / CREATININE RATIO, URINE - PHOSPHORUS - PTH - 25-HYDROXY VITAMIN D HTN, goal below 130/80 [place] use Follow Up: Return in about 6 months (around 07/14/2023) for clinic visit w/ . | For: clinic visit w/ | Check-out note: -kidney NV for BP check on Wednesday w/ neuro appt - only Historically ckd 3 A w/ eGFR 55 on serial bmp above; however most recent bmp last month w/ eGFR 38;remote ACR 2019 shows 200 mg albuminuria -update renal labs ->>>noted after visit she's on celebrex which may be part of issue here given HTN today and worse renal function > f/u labs -no RAASi and needs it HTN above goal today -cont lasix atenolol, amlodipine current doses -needs RAASi if able -recheck BP as below renal nurse Li use noted > levels have been appropriate and no sx; this med can complicate CKD longer term Patient Instructions -blood work later this week w/ neuro appt -recheck BP w/ KIDNEY nurse at neuro appt -avoid medicines like aleve, advil, ibuprofen, aspirin more than 81 mg daily and other NSAIDS whichare not good for kidney patients. Take only tylenol (acetaminophen) up to 2000 mg daily as needed for pain or as directed by your primary care provider. -no med changes for today Bonnie Trevizo MD Nephrology, [address] [address] CC: Ref: ANTONIO LUCIO[[id number]] [address] [place] [address] (office) [phone] (fax) PCP: YAYA HARGROVE [address] [place] [address] [phone] This chart was completed in part utilizing [employer] Direct Speech Voice Recognition Software. Randomword insertions, pronoun errors, and incomplete sentences are an occasional consequence of this system due to software limitations, and ambient noise. Any questions or concerns about the content, text, or information contained within the body of this dictation should be directly addressed to the provider for clarification. documented in this encounter Nursing Notes * George Murray CMA - 01/12/2023 9:25 AM EDT Chief Complaint Patient presents with Chronic Kidney Disease (CKD) Follow up Mary Dyer is a 77 year old female who presents today for a follow up for kidney disease. She has no new symptoms or concerns. documented in this encounter Miscellaneous Notes * Result Encounter Note - Bonnie Trevizo MD - 01/20/2023 9:38 AM EDT Kidney labs coming back toward baseline but [...] Gastroenterology Rama Rojas CRNP [address] [place] [address] 01/25/2023 Office Visit Orthopedics Ren Lyn DO [address] [place] [address] 02/03/2023 Office Visit Gynecology Urology Joaquin Johns MD [address] [place] [address] Nurse Cherelle Mattson [address] [place] [address] 02/11/2023 Office Visit Otolaryngology Idalia Lora PA-C [address] [place] [address] 03/09/2023 Hospital Encounter Surgery Minda Almodovar MD [address] [place] [address] 03/09/2023 Surgery Surgery Minda Almodovar MD [address] [place] [address] LAPAROSCOPIC CHOLECYSTECTOMY 03/23/2023 Office Visit General Surgery Minda Almodovar MD [address] [place] [address] 04/06/2023 Hospital Encounter Endoscopy Huyen Marmolejo, DO [address] [place] [address] 04/06/2023 Surgery Endoscopy Huyen Marmolejo, DO [address] [place] [address] COLONOSCOPY FLEXIBLE PROXIMAL DIAGNOSTIC 04/21/2023 Office Visit Family Medicine Yaya Hargrove MD [address] [place] [address] 04/22/2023 Imaging Radiology 08/27/2023 Office Visit Allergy & Immunology Yordan Jones MD [address] [place] [address] 11/05/2023 Office Visit Nephrology Bonnie Trevizo MD 200 [facility] [place] [address] Scheduled Procedures Name Priority Associated Diagnoses Date/Ti [...] this encounter Medical Devices Implanted Type Area Emt/Dispatcher Device Identifier Shelf Expiration Date Model / Serial / Lot Sureclip 16mm 235cm - [id number] Implanted:Qty: 2 on 12/10/2022 by Junior Us MD at ENDOSCOPY [facility] Stomach MICRO TECH ENDOSCOPY 10/13/2023 [id number] / / [id number] documented as of this encounter Procedures Procedure Name Priority Date/Time Associated Diagnosis Comments 25-HYDROXY VITAMIN D Routine 01/15/2023 9:22 AM EDT Stage 3a chronic kidney disease (HCC) BASIC METABOLIC PANEL Routine 01/15/2023 9:22 AM EDT Stage 3a chronic kidney disease (HCC) PHOSPHORUS Routine 01/15/2023 9:22 AM EDT Stage 3a chronic kidney disease (HCC) PTH Routine 01/15/2023 9:22 AM EDT Stage 3a chronic kidney disease (HCC) ALBUMIN / CREATININE RATIO, URINE Routine 01/15/2023 9:22 AM EDT Stage 3a chronic kidney disease (HCC) documented in this encounter Results * 25-HYDROXY VITAMIN D (01/15/2023 9:22 AM EDT) 25-Hydroxy Vitamin D 39 >19 ng/mL 01/15/2023 10:15 PM EDT [facility] Blood Venous blood specimen / Unknown Venipuncture / Unknown 01/15/2023 9:22 AM EDT 01/15/2023 9:22 AM EDT Narrative [facility] - 01/15/2023 10:15 PM EDT Deficient: <20 ng/mL Insufficient: 20-29 ng/mL Recommended/Optimum:30-50 ng/mL Vitamin D intoxication is rare. If suspicious of Vitamin D toxicity, evaluation of serum Calcium and PTH is recommended. Bonnie Trevizo MD LAB BLOOD ORDERAB LES Performing Organization Address City/[facility]/ZIP Co de Phone Number [facility] [address] [place] [address] * PTH (01/15/2023 9:22 AM EDT) PTH 43 15 - 65 pg/mL 01/15/2023 10:15 PM EDT [facility] Blood Venous blood specimen / Unknown Venipuncture / Unknown 01/15/2023 9:22 AM EDT 01/15/2023 9:22 AM EDT Bonnie Trevizo MD LAB BLOOD ORDERAB LES Performing Organization Address City/[facility]/ZIP Co de Phone Number [facility] [address] [place] [address] * PHOSPHORUS (01/15/2023 9:22 AM EDT) Phosphorus 3.7 2.5 - 4.8 mg/dL 01/15/2023 10:52 AM EDT [facility] 56- Blood Venous blood specimen / Unknown Venipuncture / Unknown 01/15/2023 9:22 AM EDT 01/15/2023 9:22 AM EDT Bonnie Trevizo MD LAB BLOOD ORDERAB LES [facility] [address]- [address] [place] [address] * ALBUMIN / CREATININE RATIO, URINE (01/15/2023 9:22 AM EDT) Albumin, Random Urine 1.70 mg/dL 01/15/2023 7:14 PM EDT [facility] Creatinine, Random Urine 76 mg/dL 01/15/2023 7:14 PM EDT [facility] Albumin / Creatinine Ratio, Urine 22 <30 mg/g Creat 01/15/2023 7:14 PM EDT [facility] Urine Urine specimen obtained by clean catch procedure / Unknown Non-blood Collection / Unknown 01/15/2023 9:22 AM EDT 01/15/2023 9:22 AM EDT Narrative [facility] - 01/15/2023 7:14 PM EDT Normal: <30 mg/g creatinine High: 30-300 mg/g creatinine Very High: >300 mg/g creatinine Nephrotic: >2200 mg/g creatinine Bonnie Trevizo MD LAB URINE ORDERAB LES [facility] [address] [place] [address] * (ABNORMAL) BASIC METABOLIC PANEL (01/15/2023 9:22 AM EDT) BUN 11 6 - 20 mg/dL 01/15/2023 10:52 AM EDT [facility] 56 Creatinine 1.2(H) 0.5 - 1.0 mg/dL 01/15/2023 10:52 AM EDT [address] Estimated Glomerular Filtration Rate 49(L) >=60 mL/min 01/15/2023 10:52 AM EDT [facility] 56 Comment:eGFR is calculated b ased on the CKD-EPI 2020 equation Sodium 142 135 - 146 mmol/L 01/15/2023 10:52 AM EDT [place] [address] Potassium 4.3 3.5 - 5.1 mmol/L 01/15/2023 10:52 AM EDT [address] Chloride 104 98 - 107 mmol/L 01/15/2023 10:52 AM EDT [address] CO2 25 22 - 32 mmol/L 01/15/2023 10:52 AM EDT [address] Anion Gap 13 7 - 15 mmol/L 01/15/2023 10:52 AM EDT [address] Glucose 105 70 - 120 mg/dL 01/15/2023 10:52 AM EDT [place] [address] Calcium 9.6 8.4 - 10.2 mg/dL 01/15/2023 10:52 AM EDT [place] [address] Blood Venous blood specimen / Unknown Venipuncture / Unknown 01/15/2023 9:22 AM EDT 01/15/2023 9:22 AM EDT Bonnie Trevizo MD LAB BLOOD ORDERAB LES [facility] 56 [address] [facility] [address] documented in this encounter Visit Diagnoses Diagnosis Stage 3a chronic kidney disease (HCC)- Primary HTN, goal below 130/80 Unspecified essential hypertension [place] use Encounter for long-term (current) use of other medications Gallbladder polyp Cholesterolosis of gallbladder Diarrhea, unspecified type History of Clostridioides difficile infection documented in this encounter Care Teams Voip Network Engineer Relationship Specialty Start Date End Date Yaya Hargrove MD [address] [place] [address] PCP - General Family Medicine 05/28/20 documented as of this encounter
--- OUTSIDE RECORDS SUMMARY | 2023-06-13 22:51 | External Medical Summary | Summary of Care ---
Author Name Unknown Organization [facility] Address [address] [facility] [place] [address] Phone [phone] Care Team Providers Care Leather Whitener Name Role Phone Dav Hargrove MD Primary Care Provider [phone] Reason for Visit * Reason Comments Outpatient Testing Encounter Details Date Type Department Care Team Description 01/15/2023 Laboratory Laboratory [facility] [address] [place] [address] [facility], Lab Scenery [address] [place] [address] Arrived Allergies Active Allergy Reactions Severity Noted Date [...] taking differently: Daily(AM), Reported on 12/07/2022 Ipratropium Hut[place] 0.03 % Nasal Solution (Atrovent) USE 2 [...] at bedtime 120 Tablet 5 01/04/2023 Active documented as of this encounter (statuses [...] Gastroenterology Rama Rojas CRNP [address] [place] [address] 01/25/2023 Office Visit Orthopedics Ren Lyn DO [address] [place] [address] 02/03/2023 Office Visit Gynecology Urology Joaquin Johns MD [address] [place] [address] Nurse Cherelle Mattson [address] [place] [address] 02/11/2023 Office Visit Otolaryngology Idalia Lora PA-C [address] [place] [address] 03/09/2023 Hospital Encounter Surgery Minda Almodovar MD [address] [place] [address] 03/09/2023 Surgery Surgery Minda Almodovar MD [address] [place] [address] LAPAROSCOPIC CHOLECYSTECTOMY 03/23/2023 Office Visit General Surgery Minda Almodovar MD [address] [place] [address] 04/06/2023 Hospital Encounter Endoscopy Huyen Marmolejo, DO [address] [place], [place] [address] 04/06/2023 Surgery Endoscopy Huyen Marmolejo, DO [address] [place] [address] COLONOSCOPY FLEXIBLE PROXIMAL DIAGNOSTIC 04/21/2023 Office Visit Family Medicine Dav Hargrove MD [address] [place] [address] 04/22/2023 Imaging Radiology 08/27/2023 Office Visit Allergy & Immunology Yordan Jones MD [address] [place] [address] 11/05/2023 Office Visit Nephrology Bonnie Trevizo MD [address] [place] [address] Scheduled Procedures Name Priority Associated Diagnoses Date/Ti me LAPAROSCOPIC CHOLECYSTECTOMY Gallbladder polyp 03/09/2023 8:00 AM EST COLONOSCOPY FLEXIBLE PROXIMAL DIAGNOSTIC Diarrhea, unspecified type History of Clostridioides difficile infection 04/06/2023 10:15 AM EST COLONOSCOPY FLEXIBLE PROXIMAL DIAGNOSTIC Recall History of colon polyps Health Maintenance Due Date Last Done Comments Albumin/Creatinine Ratio 07/03/2022 2019 COVID-19 Vaccine ( season) 2022 08/10/2020, 07/02/2020, 06/06/2020 Influenza Vaccine (FLU shot) (#1) 2022 12/12/2021, 03/11/2021, 12/21/2019, Additional history exists Depression Screening 12/12/2022 12/12/2021 TSH 04/16/2023 04/16/2022, 05/14, 02/20/2021, Additional history exists DTaP,Tdap,and Td Vaccines (2 - Td or Tdap) 11/14/2023 11/13/2013, 08/26/2005, 08/26/2005 GFR 01/01/2024 12/31/2022, 11/10, 04/16/2022, Additional history exists COLONOSCOPY-EVERY 3 YRS AGES 18-100 09/01/2025 09/01/2022, 09/01/2022, 09/13/2019, Additional history exists DXA Scan 12/10/2026 12/11/2019, 08/10, 08/23/2012 Pneumococcal [...] this encounter Medical Devices Implanted Type Area Fractionation Plant Supervisor Device Identifier Shelf Expiration Date Model / Serial / Lot Sureclip 16mm 235cm - [id number] Implanted:Qty: 2 on 12/10/2022 by Junior Us MD at ENDOSCOPY [facility] Stomach MICRO TECH ENDOSCOPY 10/13/2023 [id number] / / [id number] documented as of this encounter Care Teams Leather Whitener Relationship Specialty Start Date End Date Dav Hargrove MD [address] [place] [address] PCP - General Family Medicine 05/28/20 documented as of this encounter
--- OUTSIDE RECORDS SUMMARY | 2023-06-13 22:51 | External Medical Summary | Summary of Care ---
Author Name Unknown Organization [facility] Address [address] [facility] [place] [address] Phone [phone] Care Team Providers Care Billing Clinician Name Role Phone Dav Hargrove MD Primary Care Provider [phone] Reason for Referral * Evaluate & Treat - Unlimited Visits (Within 10 days (routine)) - Authorized Specialty Diagnoses / Procedures Referred By Heber gleason Referred To Contact BALLISTICS EXPERT - Urogynecology / Gynecology Urology Diagnoses Dysuria Dariana Fish CRNP [address] [place] [address] Referral ID Status Reason Start Date Expiration Date Visits Requested Visits Authorized [id number] Authorized Specialty Services Required 12/31/[phone] Question Answer Referral Priority Within 10 days (routine) What condition is the patient being referred for? Chronic Bladder Pain/Interstitial Cystitis/Dysuria Reason for Visit * Reason Comments Acute UTI Sx Encounter Details Date Type Department Care Team Description 12/31/2022 Office Visit Family Practice [facility] [address] [place] [address] Dariana Fish CRNP [address] [place] [address] Left lower quadrant abdominal pain*; Dysuria; Diverticulitis of colon; Pelvic pain in female Allergies Active Allergy Reactions Severity Noted Date [...] as of this encounter (statuses as of 01/01/2023) Medications Medication Sig Dispensed Refills Start Date [...] 3 times a day. 0 07/17/2022 Active Vancomycin HCl 125 MG Oral Capsule (Vancocin) Take 1 Capsule by mouth in the morning. 90 Capsule 2 08/06/2022 Active Pravastatin Sodium 80 MG Oral TabletIndications:D [...] taking differently: Daily(AM), Reported on 12/07/2022 Ipratropium Iona 0.03 % Nasal Solution (Atrovent) USE 2 [...] the evening. 180 Capsule 3 11/05/2022 Active Cefpodoxime Proxetil 200 MG Oral TabletIndications:D ysuria Take 1 Tablet by mouth in the morning and 1 Tablet in the evening. 14 Tablet 0 11/10/2022 Active documented as of this encounter (statuses as of 01/01/2023) Active Problems Problem Noted Date Moderate mitral [...] as of this encounter (statuses as of 01/01/2023) Resolved Problems Problem Noted Date Resolved Date [...] as of this encounter (statuses as of 01/01/2023) Immunizations Name Administration Dates Next Due COVID-19 mRNA, LNP-s, No Pre serve, 2-Dose Series (Pfizer) 07/02/2020,06/06/2020 Pneumococcal Conjugate Vacc, 13 Valent (Prevnar) 05/13/2015 Pneumococcal Polysaccharide PPV23 (Pneumovax) 08/12/2012 Season Influenza, Quad, PF, Adjuvanted, 65+ Yrs, IM (FLUAD) 12/21/2019 Seasonal Influenza, PF, 6 mo ns & Above, IM , (Flulaval) 01/18/2018 Seasonal Influenza, Quadriva lent Hd (Fluzone [...] Sign Reading Time Taken Comments Blood Pressure 116/64 12/31/2022 1:38 PM EDT Pulse 96 12/31/2022 1:38 PM EDT Temperature 36.7 C (98 F) 12/31/2022 1:38 PM EDT Respiratory Rate - - Oxygen Saturation 98% 12/31/2022 1:38 PM EDT Inhaled Oxygen Concentration - - Weight - - Height - - Body Mass Index - - documented in this encounter Progress Notes * DEVYN Amin - 12/31/2022 1:58 PM EDT Images from the original note were not included. History of Present Illness Mary Dyer is a 77 year old female that presents for Acute (UTI Sx) HPI Here to for dysuria, lower abdominal pain. She was started on macrobid for a UTI 12 days ago and also received a dose of rocephin a week ago. She reports that symptoms were reduced but never went away. Symptoms worse now. Burning with urination. Not able to go more than a little bit at a time -- barely gave enough for just culture today at lab so we do not have a UA for review. Her urine culture was positive for E. Coli and Proteus Hauseri. Feels like she can't empty bladder. She states she does not have interstitial cystitis -- disagrees with prior diagnosis of this. She used to see urology but has not since 2019. She also complains of left-sided abdominal discomfort and generalized bloating. She developed diarrhea 3 days ago. States it is not severe. She has a history of diverticulitis. Denies any nausea/vomiting or fevers. She is planning to have gall bladder removal in 2 weeks. + pressure in her lower abdomen. Will sometimes soil herself. Occasional nausea but no vomiting. Occasional sharp stabbing pain in the right upper quadrant, can radiate to the back. Can happen every couple weeks. Hx chronic c diff infection. Outpatient Medications Marked as Taking for the 12/31/22 encounter (Office Visit) with DEVYN Amin Medication Sig Cefpodoxime Proxetil 200 MG Oral Tablet Take 1 Tablet by mouth in the morning and 1 Tablet in the evening. Omeprazole 20 MG Oral Capsule Delayed Release (PriLOSEC) Take 1 Capsule by mouth in the morning and1 Capsule in the evening. busPIRone HCl 7.5 MG Oral Tablet (Buspar) Celecoxib 200 MG Oral Capsule (CeleBREX) Take 1 Capsule by mouth in the morning. Fluocinonide 0.05 % External Gel Apply topically to affected area 2 times a day. Gabapentin 100 MG Oral Capsule (Neurontin) Take 1 Capsule by mouth in the morning and 1 Capsule at noon and 1 Capsule before bedtime. With 300 mg tabs. Ipratropium Iona 0.03 % Nasal Solution (Atrovent) USE 2 SPRAYS IN BOTH NOSTRILS 4 TIMES DAILY amLODIPine Besylate 10 MG Oral Tablet (Norvasc) TAKE 1 TABLET BY MOUTH DAILY (Patient taking differently: daily.) Atenolol 50 MG Oral Tablet (Tenormin) TAKE 1 TABLET BY MOUTH ONCE DAILY (Patient taking differently: daily.) Pravastatin Sodium 80 MG Oral Tablet TAKE 1 TABLET BY MOUTH ONCE DAILY (Patient taking differently:No sig reported) Vancomycin HCl 125 MG Oral Capsule (Vancocin) Take 1 Capsule by mouth in the morning. tiZANidine HCl 2 MG Oral Tablet (Zanaflex) Take by mouth 3 times a day. traMADol HCl 50 MG Oral Tablet (Ultram) Take 2 Tablets by mouth every 6 hours as needed for Pain, Severe. Levothyroxine Sodium 125 MCG Oral Tablet (Levoxyl) TAKE 1 TABLET BY MOUTH DAILY WITH A GLASS OF WATER Dicyclomine HCl 20 MG Oral Tablet (Bentyl) TAKE 1 TABLET BY MOUTH 4 TIMES DAILY NEEDED FOR CRAMPING AND FOR ABDOMINAL PAIN Fluticasone Propionate 50 MCG/ACT Nasal Suspension (Flonase) USE 2 SPRAYS IN BOTH NOSTRILS TWICE DAILY Famotidine 40 MG Oral Tablet (Pepcid) TAKE 1 TABLET BY MOUTH AT BEDTIME Furosemide 20 MG Oral Tablet (Lasix) TAKE 1 TABLET BY MOUTH DAILY Gabapentin 300 MG Oral Capsule (Neurontin) TAKE 1 CAPSULE BY MOUTH 3 TIMES DAILY Pilocarpine HCl 5 MG Oral Tablet (Salagen) TAKE 1 TABLET BY MOUTH IN THE MORNING AND 1 TABLET BY MOUTH AT NOON AND 1 TABLET BY MOUTH BEFORE BEDTIME Methocarbamol 500 MG Oral Tablet (Robamol) Take 1 Tablet by mouth in the morning and 1 Tablet at noon and 1 Tablet in the evening and 1 Tablet before bedtime. Losartan Potassium 100 MG Oral Tablet (Cozaar) TAKE 1 TABLET BY MOUTH DAILY (Patient taking differently: daily.) Betamethasone Dipropionate 0.05 % External Cream (Diprosone) Apply to both outer ears every other night for itching ProAir HFA 108 (90 Base) MCG/ACT Inhalation Aerosol Solution Inhale by mouth 2 Puffs every 4 hours as needed for Wheezing. Misc. Devices Refurbish current custom molded inserts - hindfoot varus post (lateral) ondansetron (ZOFRAN) 4 MG Tablet Take 1 Tab by mouth every 12 hours as needed for Nausea. meclizine (ANTIVERT) [...] Tablet by mouth as needed for Gas. lithium carbonate ER [...] MG PO TABS one by mouth daily Physical Exam Vitals: 12/31/22 1338 Temp: 36.7 C (98 F) Pulse: 96 SpO2: 98% BP: 116/64 Physical Exam Vitals reviewed. Exam conducted with a stripper and taper present. Constitutional: Appearance: She is not ill-appearing. HENT: Head: Normocephalic and atraumatic. Right Ear: Tympanic membrane, ear canal and external ear normal. Left Ear: Tympanic membrane, ear canal and external ear normal. Nose: Nose normal. Mouth/Throat: Mouth: Mucous membranes are moist. Eyes: Extraocular Movements: Extraocular movements intact. Conjunctiva/sclera: Conjunctivae normal. Pupils: Pupils are equal, round, and reactive to light. Cardiovascular: Rate and Rhythm: Normal rate. Heart sounds: Normal heart sounds. Pulmonary: Effort: No respiratory distress. Abdominal: General: There is distension. Palpations: Abdomen is soft. Tenderness: There is abdominal tenderness (LUQ, LLQ, suprapubic). There is no right CVA tenderness or left CVA tenderness. Genitourinary: General: Normal vulva. Urethra: Urethral swelling (swelling and erythema of urethra) present. Vagina: No vaginal discharge. Comments: Small amount of stool residue noted on perineum Musculoskeletal: Right lower leg: No edema. Left lower leg: No edema. Skin: General: Skin is warm and dry. Capillary Refill: Capillary refill takes less than 2 seconds. Findings: No rash. Neurological: Mental Status: She is alert and oriented to person, place, and time. Mental status is at baseline. Psychiatric: Behavior: Behavior normal. Assessment and Plan Left lower quadrant abdominal pain + tenderness on exam Diverticulosis with hx of diverticulitis as well as hx of chronic c diff with colitis CBC WNL, will check other labs as well Offered to defer imaging until urine results available -- prefers to get it done now "sincethey're already here" - COMPREHENSIVE METABOLIC PANEL; Future - LIPASE; Future - CT ABD/PELVIS W WO IV CONTRAST AND W ORAL CONT; Future Dysuria Recently treated with macrobid Bladder scan shows no post-void residual in office Urethral swelling noted on exam -- ? Prolapse v recurrent infection Denies any vaginal complaints Awaiting UA results from lab as in-office machine not available Culture sent Urogyn referral placed for recurrent dysuria/UTI Diverticulitis of colon History of Pelvic pain in female urogyn referral placed - CT ABD/PELVIS W WO IV CONTRAST AND W ORAL CONT; Future Wrap-Up Follow-up: Return if symptoms worsen or fail to improve. | Check-out note: Labs today -- needs thembefore CT Time: I spent a total of 40-54 minutes (exact time 40 mins) on the date of service in preparation, delivery, and documentation of the care provided to Mary Dyer excluding any time spent in the performance of separately billed services. documented in this encounter Nursing Notes * Sonia Forde LPN - 12/31/2022 1:36 PM EDT The patient has been properly identified by confirmation of name and date of . Chief Complaint Patient presents with Acute UTI Sx Pt went to lab gave enough urine for just the culture. Burning with urination now. Pain and difficulty when going. Ongoing for a few days now. documented in this encounter Miscellaneous Notes * Addendum Note - DEVYN Amin - 01/01/2023 8:17 AM EDTAddended by: DARIANA FISH on: 01/01/2023 08:17 AM Modules accepted: Orders documented in this encounter Plan of Treatment Upcoming Encounters Date Type Specialty Care Team Description 01/01/2023 Imaging Radiology 01/12/2023 Office Visit Nephrology Bonnie Trevizo MD [address] [place] [address] 01/14/2023 Appointment Radiology 01/14/2023 Hospital Encounter Surgery [facility] [address] [place] [address] 01/14/2023 Surgery Surgery [facility] [address] [place] [address] ANESTHESIA FOR NON-INVASIVE IMAGING (MRI OR CT) 01/15/2023 Office Visit Neurology Sissy Ellis MD [address] [place] [address] 01/20/2023 Office Visit Gastroenterology Rama Rojas CRNP [address] [place] [address] 01/25/2023 Office Visit Orthopedics Ren Lyn DO [address] [place] [address] 02/03/2023 Office Visit Gynecology Urology Joaquin Johns MD [address] [place], [place] [id number] Nurse Cherelle Mattson [address] [place] [address] 02/11/2023 Office Visit Otolaryngology Idalia Lora PA-C [address] [place] [address] 03/09/2023 Hospital Encounter Surgery Minda Almodvoar MD [address] [place] [address] 03/09/2023 Surgery Surgery Minda Almodovar MD [address] [place] [address] LAPAROSCOPIC CHOLECYSTECTOMY 03/23/2023 Office Visit General Surgery Minda Almodovar MD [address] [place], [place] [address] 04/06/2023 Hospital Encounter Endoscopy Huyen Marmolejo, DO [address] [place] [address] 04/06/2023 Surgery Endoscopy Huyen Marmolejo, DO [address] [place] [address] COLONOSCOPY FLEXIBLE PROXIMAL DIAGNOSTIC 04/21/2023 Office Visit Family Medicine Dav Hargrove MD [address] [place] [address] 04/22/2023 Imaging Radiology 08/27/2023 Office Visit Allergy & Immunology Yordan Jones MD [address] [place] [address], [place] [address] Scheduled Procedures Name Priority Associated Diagnoses Date/Ti me ANESTHESIA FOR NON-INVASIVE IMAGING (MRI OR CT) Post concussion syndrome 01/14/2023 7:30 AM EDT LAPAROSCOPIC CHOLECYSTECTOMY Gallbladder polyp 03/09/2023 8:00 AM EST COLONOSCOPY FLEXIBLE PROXIMAL DIAGNOSTIC Diarrhea, unspecified type History of Clostridioides difficile infection 04/06/2023 10:15 AM EST COLONOSCOPY FLEXIBLE PROXIMAL DIAGNOSTIC Recall History of colon polyps Scheduled Referrals Name Type Priority Associated Diagnoses Order Schedule UROGYNECOLOGY CLINIC REFERRAL OP (FEMALE ONLY) Referral Within 10 days (routine) Dysuria Ordered: 12/31/2022 Health Maintenance Due Date Last Done Comments COVID-19 Vaccine (4 - Pfizer series) 10/05/2020 08/10/2020, 07/02/2020, 06/06/2020 Albumin/Creatinine Ratio 07/03/2022 2019 Influenza Vaccine (FLU shot) (#1) 2022 12/12/2021, [...] this encounter Medical Devices Implanted Type Area Software Engineering Analyst Device Identifier Shelf Expiration Date Model / Serial / Lot Beau Kingstonmm 235cm - [id number] Implanted:Qty: 2 on 12/10/2022 by Junior Us MD at ENDOSCOPY [facility] Stomach MICRO TECH ENDOSCOPY 10/13/2023 [id number] / / [id number] documented as of this encounter Results * LIPASE (12/31/2022 2:53 PM EDT) Lipase 40 13 - 60 U/L 12/31/2022 11:45 PM EDT LABORATORY [facility] Blood Venous blood specimen / Unknown Venipuncture / Unknown 12/31/2022 2:53 PM EDT 12/31/2022 2:53 PM EDT Dariana SHEPARD LAB BLOOD ORDERABL ES LABORATORY [facility] [address] [place] [address] * (ABNORMAL) COMPREHENSIVE METABOLIC PANEL (12/31/2022 2:53 PM EDT) Pathologist [facility] BUN 14 6 - 20 mg/dL 12/31/2022 3:52 PM EDT LABORATORY [place] [facility]-[place] Creatinine 1.4(H) 0.5 - 1.0 mg/dL 12/31/2022 3:52 PM EDT LABORATORY [place] [facility] Estimated Glomerular Filtration Rate 38(L) >=60 mL/min 12/31/2022 3:52 PM EDT LABORATORY [place] 57-10 Comment:eGFR is calculated b ased on the CKD-EPI 2020 equation Sodium 139 135 - 146 mmol/L 12/31/2022 3:52 PM EDT LABORATORY [place] [facility] Potassium 4.4 3.5 - 5.1 mmol/L 12/31/2022 3:52 PM EDT LAB[facility]ATORY [place] [facility] Chloride 101 98 - 107 mmol/L 12/31/2022 3:52 PM EDT LAB[facility]ATORY [place] [facility] CO2 24 22 - 32 mmol/L 12/31/2022 3:52 PM EDT LABORATORY [place] [facility] Anion Gap 14 7 - 15 mmol/L 12/31/2022 3:52 PM EDT LABORATORY [place] [facility] Glucose 105 70 - 120 mg/dL 12/31/2022 3:52 PM EDT LAB[facility]ATORY [place] [facility] Albumin 4.8 3.8 - 5.0 g/dL 12/31/2022 3:52 PM EDT LAB[facility]ATORY [place] [facility] AST 16 10 - 35 U/L 12/31/2022 3:52 PM EDT LAB[facility]ATORY [place] [facility] Alkaline Phosphatase 87 35 - 130 U/L 12/31/2022 3:52 PM EDT LABORATORY [place] [facility] Bilirubin, Total 0.3 <=1.2 mg/dL 12/31/2022 3:52 PM EDT LAB[facility]ATORY [place] [facility] Calcium 9.5 8.4 - 10.2 mg/dL 12/31/2022 3:52 PM EDT LAB[facility]ATORY [place] [facility] Protein 7.0 6.0 - 8.3 g/dL 12/31/2022 3:52 PM EDT LABORATORY [place] [facility] ALT 17 10 - 35 U/L 12/31/2022 3:52 PM EDT LAB[facility]ATORY [place] [facility]10 Blood Venous blood specimen / Unknown Venipuncture / Unknown 12/31/2022 2:53 PM EDT 12/31/2022 2:53 PM EDT Dariana SHEPARD LAB BLOOD ORDERABL ES [facility] [place] [facility] [address] [facility] [address] documented in this encounter Visit Diagnoses Diagnosis Left lower quadrant abdominal pain- Primary Dysuria Diverticulitis of colon Diverticulitis of colon (without mention of hemorrhage) Pelvic pain in female Unspecified symptom associated with female genital organs Post concussion syndrome Postconcussion syndrome Gallbladder polyp Cholesterolosis of gallbladder Diarrhea, unspecified type History of Clostridioides difficile infection documented in this encounter Care Teams Billing Clinician Relationship Specialty Start Date End Date Dav Hargrove MD [address] [place] [address] PCP - General Family Medicine 05/28/20 documented as of this encounter
--- OUTSIDE RECORDS SUMMARY | 2023-06-13 22:51 | External Medical Summary | Summary of Care ---
Author Name Unknown Organization [facility] Address [address] [facility] [place] [address] Phone [phone] Care Team Providers Care Bus Cleaner Name Role Phone Dav Hargrove MD Primary Care Provider [phone] Reason for Visit * Reason Comments Epigastric Pain Pt here with , states every morning at 2am she wakes with acid reflux. Pt then starts coughing and has been coughing up blood Encounter Details Date Type Department Care Team Description 01/04/2023 Office Visit Family [facility] [address] [place] [address] Dav Hargrove MD [address] [place] [address] Dysuria*; Gastroesophageal reflux disease with esophagitis without hemorrhage Allergies Active Allergy Reactions Severity Noted Date [...] as of this encounter (statuses as of 01/04/2023) Medications Medication Sig Dispensed Refills Start Date [...] post (lateral) 1 Each 0 0 Active ProAir HFA 108 (90 Base) MCG/ACT Inhalation Aerosol SolutionIndicati ons:Wheeze Inhale by mouth 2 Puffs every 4 hours as needed for Wheezing. 18 g 0 2 Active Betamethasone Dipropionate 0.05 % External Cream (Diprosone) Apply to both outer ears every other night for itching 30 g 0 2 Active Losartan Potassium 100 MG Oral Tablet (Cozaar)Indicati ons:HTN, goal below 140/90,Hypertens judson kidney disease with stage 3a chronic kidney disease (HCC) TAKE 1 TABLET BY MOUTH DAILY 90 Tablet 3 2 Active Additional Information Patient taking differently: Daily(AM), [...] MOUTH BEFORE BEDTIME 270 Tablet 3 2 Active Gabapentin 300 MG Oral Capsule (Neurontin) TAKE 1 CAPSULE BY MOUTH 3 TIMES DAILY 270 Capsule 3 3 Active Furosemide 20 MG Oral Tablet (Lasix)Indicatio ns:Diastolic dysfunction TAKE 1 TABLET BY MOUTH DAILY 90 Tablet 3 3 Active Famotidine 40 MG Oral Tablet (Pepcid)Indicati ons:Gastroesopha geal reflux disease TAKE 1 TABLET BY MOUTH AT BEDTIME 90 Tablet 3 3 Active Fluticasone Propionate 50 MCG/ACT Nasal Suspension (Flonase) USE 2 SPRAYS IN BOTH NOSTRILS TWICE DAILY 96 g 4 3 Active Dicyclomine HCl 20 MG Oral Tablet (Bentyl) TAKE 1 TABLET BY MOUTH 4 TIMES DAILY NEEDED FOR CRAMPING AND FOR ABDOMINAL PAIN 360 Tablet 3 3 Active Levothyroxine Sodium 125 MCG Oral Tablet (Levoxyl)Indicat ions:Hypothyroid ism TAKE 1 TABLET BY MOUTH DAILY WITH A GLASS OF WATER 90 Tablet 2 3 Active traMADol HCl 50 MG Oral Tablet (Ultram)Indicati ons:Lymphedema of left upper extremity Take 2 Tablets by mouth every 6 hours as needed for Pain, Severe. 120 Tablet 2 3 Active tiZANidine HCl 2 MG Oral Tablet (Zanaflex)Indica tions:as needed Take by mouth 3 times a day. 0 3 Active Pravastatin Sodium 80 MG Oral TabletIndication s:Dyslipidemia, goal LDL below 130 TAKE 1 TABLET BY MOUTH ONCE DAILY 90 Tablet 1 3 Active Additional Information Patient taking differently: Indications: in evening, Reported on 12/07/2022 amLODIPine Besylate 10 MG Oral Tablet (Norvasc)Indicat ions:Chronic kidney disease with symptom management only, stage 3 (moderate) (HCC),HTN, goal below 130/80 TAKE 1 TABLET BY MOUTH DAILY 90 Tablet 1 3 Active Additional Information Patient taking differently: Daily(AM), Reported on 12/07/2022 Atenolol 50 MG Oral Tablet (Tenormin)Indica tions:HTN, goal below 140/90 TAKE 1 TABLET BY MOUTH ONCE DAILY 90 Tablet 1 3 Active Additional Information Patient taking differently: Daily(AM), Reported on 12/07/2022 Ipratropium [place] 0.03 % Nasal Solution (Atrovent) USE 2 SPRAYS IN BOTH NOSTRILS 4 TIMES DAILY 150 mL 3 3 Active Celecoxib 200 MG Oral Capsule (CeleBREX) [...] at bedtime 120 Tablet 5 3 Active Cephalexin 500 MG Oral Capsule Take 1 Capsule by mouth in the morning and 1 Capsule before bedtime. Do all this for 10 days. 20 Capsule 0 3 01/15/20 Active Vancomycin HCl 125 MG Oral Capsule (Vancocin) Take 1 Capsule by mouth in the morning. 90 Capsule 2 3 01/05/20 Discontinued Cefpodoxime Proxetil 200 MG Oral TabletIndication s:Dysuria Take 1 Tablet by mouth in the morning and 1 Tablet in the evening. 14 Tablet 0 3 01/05/20 Discontinued(Dis charged) documented as of this encounter (statuses as of 01/04/2023) Active Problems Problem Noted Date Moderate mitral [...] as of this encounter (statuses as of 01/04/2023) Resolved Problems Problem Noted Date Resolved Date [...] as of this encounter (statuses as of 01/04/2023) Immunizations Name Administration Dates Next Due COVID-19 mRNA, LNP-s, No Pre serve, 2-Dose Series ([employer]) 07/02/2020,06/06/2020 Pneumococcal Conjugate Vacc, 13 Valent (Prevnar) [...] Sign Reading Time Taken Comments Blood Pressure 118/72 01/04/2023 2:58 PM EDT Pulse 68 01/04/2023 2:58 PM EDT Temperature 36.4 C (97.5 F) 01/04/2023 2:58 PM ED T Respiratory Rate - - Oxygen Saturation - - Inhaled Oxygen Concentration - - Weight - - Height - - Body Mass Index - - documented in this encounter Progress Notes * Dav Hargrove MD - 01/04/2023 5:11 PM EDT SUBJECTIVE: Mary Dyer is a 77 year old female. Chief Complaint Patient presents with Epigastric Pain Pt here with , states every morning at 2am she wakes with acid reflux. Pt then starts coughing and has been coughing up blood HPI: Here with Ray today. Complaining of hoarseness and worsening acid reflux. She is scheduled to have a cholecystectomy in February. No signs/symptoms of acute cholecystitis. She was coughing heavily over the weekend and coughed up some blood by report. She is on a plethora of medication in [facility], including a proton pump inhibitor for GERD. She has chronic dysuria that is very likely related to chronic interstitial cystitis. 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 20 Tab 0 ProAir HFA 108 (90 Base) MCG/ACT [...] taking differently: daily.) 90 Tablet 1 Ipratropium [place] 0.03 % Nasal Solution (Atrovent) USE 2 SPRAYS IN BOTH NOSTRILS 4 TIMES DAILY 150 mL 3 Celecoxib 200 MG Oral Capsule (CeleBREX) Take 1 Capsule by mouth in the morning. Gabapentin 100 MG Oral Capsule (Neurontin) Take [...] meals and at bedtime 120 Tablet 5 Cephalexin 500 MG Oral Capsule Take 1 Capsule by mouth in the morning and 1 Capsule before bedtime.Do all this for 10 days. 20 Capsule 0 Artificial Tear Solution (SOOTHE XP) SOLN Instill [...] Sesquihydrate] Other (Please comment) headache OBJECTIVE: BP 118/72 (BP Site: Right Arm, BP Position: Sitting, BP Cuff Size: Regular) | Pulse 68 | Temp 36.4 C (97.5 F) (Tympanic) Gen: aao x 3, nad, very hoarse Lungs: ctab Heart: rrr, no mrg Skin: no worrisome lesions/rashes Ext: no edema Abd: no cva tenderness ASSESSMENT AND PLAN: (R30.0) Dysuria (primary encounter diagnosis) Plan: CULTURE, URINE, QUANTITATIVE -will treat with keflex until culture returns (K21.00) Gastroesophageal reflux disease with esophagitis without hemorrhage Plan: add carafate Follow up as needed. No other complaints were offered at this time. Dav Hargrove MD documented in this encounter Plan of Treatment Upcoming Encounters Date Type Specialty Care Team Description 01/12/2023 Office Visit Nephrology Bonnie Trevizo MD [address] [place] [address] 01/14/2023 Appointment Radiology 01/14/2023 Hospital Encounter Surgery [facility] [place] [place] [address], [place] [id number] 01/14/2023 Surgery Surgery [facility] [place] [place] [facility] [place] [address] [place] [address] ANESTHESIA FOR NON-INVASIVE IMAGING (MRI OR CT) 01/15/2023 Office Visit Neurology Sissy Ellis MD [address] [place] [address] 01/20/2023 Office Visit Gastroenterology Rama Rojas CRNP [address] [place] [address] 01/25/2023 Office Visit Orthopedics Ren Lyn DO [address] [place] [address] 02/03/2023 Office Visit Gynecology Urology Joaquin Johns MD [address] [place] [address] Nurse Cherelle Mattson [address] [place] [address] 02/11/2023 Office Visit Otolaryngology Idalia Lora PA-C [address] [place] [address] 03/09/2023 Hospital Encounter Surgery Minda Almodovar MD [address] [place] [address] 03/09/2023 Surgery Surgery Minda Almodovar MD [address] [place] [address] LAPAROSCOPIC CHOLECYSTECTOMY 03/23/2023 Office Visit General Surgery Minda Almodovar MD [address] [place] [address] 04/06/2023 Hospital Encounter Endoscopy Huyen Marmolejo, DO [address] [place] [address] 04/06/2023 Surgery Endoscopy Huyen Marmolejo, DO [address] [place] [address] COLONOSCOPY FLEXIBLE PROXIMAL DIAGNOSTIC 04/21/2023 Office Visit Family Medicine Dav Hargrove MD [address] [place] [address] 04/22/2023 Imaging Radiology 08/27/2023 Office Visit Allergy & Immunology Yodran Jones MD [address] [place] [address], [place] [address] Pending Results Name Type Priority Associated Diagnoses Date /Time CULTURE, URINE, QUANTITATIVE Lab Routine Dysuria 01/04/2023 5:21 PM EDT Scheduled Procedures Name Priority Associated Diagnoses Date/Ti me ANESTHESIA FOR NON-INVASIVE IMAGING (MRI OR CT) Post concussion syndrome 01/14/2023 3:45 PM EDT LAPAROSCOPIC CHOLECYSTECTOMY Gallbladder polyp 03/09/2023 8:00 [...] this encounter Medical Devices Implanted Type Area Underwriting Analyst Device Identifier Shelf Expiration Date Model / Serial / Lot Sureclip 16mm 235cm - [id number] Implanted:Qty: 2 on 12/10/2022 by Junior Us MD at ENDOSCOPY [facility] Stomach MICRO TECH ENDOSCOPY 10/13/2023 [id number] / / [id number] documented as of this encounter Visit Diagnoses Diagnosis Dysuria- Primary Gastroesophageal reflux disease with esophagitis without hemorrhage Post concussion syndrome Postconcussion syndrome Gallbladder polyp Cholesterolosis of gallbladder Diarrhea, unspecified type History of Clostridioides difficile infection documented in this encounter Care Teams Bus Cleaner Relationship Specialty Start Date End Date Dav Hargrove MD [address] [facility] [place] [address] PCP - General Family Medicine 05/28/20 documented as of this encounter
--- OUTSIDE RECORDS SUMMARY | 2023-06-13 22:51 | External Medical Summary ---
Author Name Unknown Address Unknown Organization [id number]:[facility] [place] [address] Laboratory Report Ordering Provider Test Date Status CLARISA UMANZOR 01/15/2023 09:22:04 Final Observation Date Value Abnormality Reference (Units ) Status Phosphate 01/15/2023 09:22:04 3.7 2.5-4.8 (m g/dL) Final Performing Location [facility] [place] [address]
--- OUTSIDE RECORDS SUMMARY | 2023-06-13 22:51 | External Medical Summary ---
Author Name Unknown Address Unknown Organization [id number]:[facility] [place] - [address] [place] [address] Laboratory Report Ordering Provider Test Date Status CLARISA UMANZOR 01/15/2023 09:22:04 Final Normal: <30 mg/g creatinine< br/>High: 30-300 mg/g creatinine
Very High: >300 mg/g creatinine
Nephrotic: >2200 mg/g creatinine Observation Date Value Abnormality Reference (Units ) Status Albumin, Urine 01/15/2023 09:22:04 1.70 (mg/dL) Final Creatinine, Urine 01/15/2023 09:22:04 76 (mg/dL) Final Albumin/Creatinine [Mass Ratio] in Urine 01/15/2023 09:22:04 22 <30 (mg/g Creat) Final Performing Location LABORATORY [facility] [place] - [address] [place] [address]
--- OUTSIDE RECORDS SUMMARY | 2023-06-13 22:51 | External Medical Summary ---
Author Name Unknown Address Unknown Organization K09:[facility] [place] [address] Laboratory Report Ordering Provider Test Date Status CLARISA UMANZOR 01/15/2023 09:22:04 Final Observation Date Value Abnormality Reference (Units ) Status BUN 01/15/2023 09:22:04 11 6-20 (mg/dL) Final Creatinine 01/15/2023 09:22:04 1.2 Above high normal 0.5-1.0 (mg/dL) Final Glomerular filtration rate/1.73 sq M.predicted [Volume Rate/Area] in Serum, Plasma or Blood by Creatinine-based formula (CKD-EPI) 01/15/2023 09:22:04 49 Below low normal >=60 (mL/min) Final eGFR is calculated based on the CKD-EPI 2020 equation SODIUM 01/15/2023 09:22:04 142 135-146 (m mol/L) Final Potassium 01/15/2023 09:22:04 4.3 3.5-5.1 (m mol/L) Final Cl 01/15/2023 09:22:04 104 98-107 (mm ol/L) Final CO2 01/15/2023 09:22:04 25 22-32 (mmo l/L) Final Anion gap 01/15/2023 09:22:04 13 7-15 (mmol /L) Final Glucose 01/15/2023 09:22:04 105 70-120 (mg /dL) Final Calcium 01/15/2023 09:22:04 9.6 8.4-10.2 ( mg/dL) Final Performing Location [facility] [place] [address]
--- OUTSIDE RECORDS SUMMARY | 2023-06-13 22:51 | External Medical Summary ---
Author Name Unknown Address Unknown Organization [id number][place] [place] [address] [place] [address] Laboratory Report Ordering Provider Test Date Status CLARISA UMANZOR 01/15/2023 09:22:04 Final Deficient: <20 ng/mL
Ins ufficient: 20-29 ng/mL
Recommended/Optimum:30-50 ng/mL

Vitamin D intoxication is rare. If suspicious of Vitamin D toxicity, evaluation of serum Calcium and PTH is recommended. Observation Date Value Abnormality Reference (Units ) Status 25-OH Vitamin D total 01/15/2023 09:22:04 39 >19 (ng/mL) Final Performing Location [facility] [place] [address] [place] [address]
--- OUTSIDE RECORDS SUMMARY | 2023-06-13 22:51 | External Medical Summary | Summary of Care ---
Author Name Unknown Organization [facility] Address [address] [facility] [address] Phone [phone] Care Team Providers Care Budget Technician Name Role Phone Dav Hargrove MD Primary Care Provider [phone] Encounter Details Date Type Department Care Team Description 01/15/2023 Nurse Only Nephrology, [facility] [address] [facility] [place] [address] Sp, Nurse Nephrology [address] [facility] [place] [address] Arrived Allergies Active Allergy Reactions Severity Noted [...] taking differently: Daily(AM), Reported on 12/07/2022 Ipratropium [place] 0.03 % Nasal Solution (Atrovent) USE 2 [...] Sign Reading Time Taken Comments Blood Pressure 132/65 01/15/2023 8:16 AM EDT Pulse 79 01/15/2023 8:16 AM EDT Temperature - - Respiratory Rate - - Oxygen Saturation - - Inhaled Oxygen Concentration - - Weight - - Height - - Body Mass Index - - documented in this encounter Nursing Notes * Jayla Moses LPN - 01/15/2023 8:18 AM EDT Pt here for blood pressure check today. Pt had brain MRI yesterday. Seeing neuro today. No symptomsof high bp. documented in this encounter Plan of Treatment Upcoming Encounters Date Type Specialty Care Team Description 01/15/2023 Office Visit Neurology Sissy Ellis MD [address] [place] [address] Arrived 01/20/2023 Office Visit Gastroenterology Rama Rojas CRNP [address] [place] [address] 01/25/2023 Office Visit Orthopedics Ren Lyn DO [address] [place] [address] 02/03/2023 Office Visit Gynecology Urology Joaquin Johns MD [address] [place] [address] Nurse Cherelle Mattson [address] [place] [address] 02/11/2023 Office Visit Otolaryngology Idalia Lora PA-C [address] [place] [address] 03/09/2023 Hospital Encounter Surgery Minda Almodovar MD [address] [place] [address] 03/09/2023 Surgery Surgery Minda Almodovar MD [address] [place] [address] LAPAROSCOPIC CHOLECYSTECTOMY 03/23/2023 Office Visit General Surgery Minda Almodovar MD [address] [place] [address] 04/06/2023 Hospital Encounter Endoscopy Huyen Marmolejo, DO [address] [place] [address] 04/06/2023 Surgery Endoscopy Huyen Marmolejo, DO [address] [place] [address] COLONOSCOPY FLEXIBLE PROXIMAL DIAGNOSTIC 04/21/2023 Office Visit Family Medicine Dav Hargrove MD [address] [place] [address] 04/22/2023 Imaging Radiology 08/27/2023 Office Visit Allergy & Immunology Yordan Jones MD [address] [facility] [place] [place] [address] 11/05/2023 Office Visit Nephrology Bonnie Trevizo MD [address] [place] [address] Scheduled Procedures Name Priority Associated Diagnoses Date/Ti [...] this encounter Medical Devices Implanted Type Area Engineering Production Liaison Device Identifier Shelf Expiration Date Model / Serial / Lot Sureclip 16mm 235cm - [id number] Implanted:Qty: 2 on 12/10/2022 by Junior Us MD at ENDOSCOPY [facility] Stomach MICRO TECH ENDOSCOPY 10/13/2023 [id number] / / [id number] documented as of this encounter Care Teams Budget Technician Relationship Specialty Start Date End Date Dav Hargrove MD [address] [place] [address] PCP - General Family Medicine 05/28/20 documented as of this encounter
--- OUTSIDE RECORDS SUMMARY | 2023-06-13 22:51 | External Medical Summary ---
Author Name Unknown Address Unknown Organization [id number]:[facility] [place] - [address] [place] [address] Laboratory Report Ordering Provider Test Date Status WALTER JAVIER 01/04/2023 17:21:53 Final Observation Date Value Abnormality Reference (Units) Status Bacteria identified in Specimen by Culture 01/04/2023 17:21:53 No significant growth Final Test: Culture, Urine, Quanti tative
Specimen Source: Urine, Clean Catch
Specimen Type: Urine
Specimen Date: 01/04/2023 5:21 PM
Result Date: 01/06/2023 10:15 AM
Result Status: Final result
Resulting Lab: [facility] [place]
[address]
[place] [address]

CULTURE

No significant growth

null Performing Location [facility] [place] - [address] [facility] [place] [address]
--- OUTSIDE RECORDS SUMMARY | 2023-06-13 22:51 | External Medical Summary | Summary of Care ---
Author Name Unknown Organization [facility] Address [address] [address] Phone [phone] Care Team Providers Care Supervisory Investigative Specialist Name Role Phone Dav Hargrove MD Primary Care Provider [phone] Reason for Visit * Reason Comments Return Neuro Encounter Details Date Type Department Care Team Description 01/15/2023 Office Visit Neurology [facility] [place] [address] [facility] [place] [address] Sissy Ellis MD [address] [facility] [place] [address] Benign paroxysmal positional vertigo, unspecified laterality*; Intractable tension-type headache, unspecified chronicity pattern; Tremor Allergies Active Allergy Reactions Severity Noted Date [...] taking differently: Daily(AM), Reported on 12/07/2022 Ipratropium [place] 0.03 % Nasal Solution (Atrovent) USE [...] mRNA, LNP-s, No Pre serve, 2-Dose Series ([employer]) 07/02/2020,06/06/2020 Pneumococcal Conjugate Vacc, 13 Valent (Prevnar) [...] Time Taken Comments Blood Pressure 132/65 01/15/2023 8:22 AM EDT Pulse 79 01/15/2023 8:22 AM EDT Temperature 36.6 C (97.8 F) 01/15/2023 8:22 AM ED T Respiratory Rate 16 01/15/2023 8:22 AM EDT Oxygen Saturation - - Inhaled Oxygen Concentration - - Weight 87.1 kg (192 lb) 01/15/2023 8:22 AM EDT Height - - Body Mass Index 30.07 12/07/2022 1:36 PM EDT documented in this encounter Patient Instructions * Patient Instructions* Sissy Ellis MD - 01/15/2023 9:05 AM EDT We are going to taper and discontinue gabapentin 100 mg. I would decrease by 1 pill per week until off. No change in gabapentin 300 mg Let me know if headaches recur. documented in this encounter Progress Notes * Sissy Ellis MD - 01/15/2023 9:17 AM EDT Images from the original note were not included. CLINIC NOTES Neurology [facility] [address] [place] [address] [place] [address] Mary Dyer : 1945 NEUROLOGY OUTPATIENT NOTE 01/15/2023 HISTORY: The patient is referred for consultation by Dr. Bonner, who will be receiving a copy of this note. The patient comes today in follow-up of posttraumatic headaches. The increase in gabapentin by 100 mg 3 times a day was very helpful headaches are rare. We referred her to PT for an escalation of vertigo but given her neck stiffness they were not able to perform an Sai maneuver fortunately her dizziness is improved and she experiences mostly if she turns her head to the left. MRI the brain was performed in his unchanged compared to a prior imaging study and is as follows I have reviewed the images and reports Exam End Date Exam End Time 01/14/2023 1:00 PM MRI BRAIN WITHOUT CONTRAST Order: [id number] Status: Final result Visible to patient: Yes (seen) Next appt: 01/20/2023 at 12:30 PM in *Gastro* (DEVYN Wilkerson) Dx: Post concussion syndrome 0 Result Notes Details Reading Physician Reading Date Result Priority Griselda Young IV, MD [phone] 01/14/2023 Narrative & Impression EXAM MRI BRAIN WITHOUT CONTRAST-01/14/2023 1:00 pm HISTORY Headache; Chronic REDDY (>= 3 months); REDDY with refractory/debilitating pain; No known/automaticallydetected potential contraindications to MRI COMPARISON MRI neck 06/16/2018 TECHNIQUE Multiplanar, multiparametric MRI brain without contrast. FINDINGS Patchy FLAIR hyperintensities in the white matter. Chronic right cerebellar infarcts which are small. No abnormal diffusion restriction. Ventricles/sulci are enlarged due to mild generalized volume loss No midline shift, mass effect, or herniation. No abnormal extra-axial fluid collections. Larger intracranial flow voids are preserved. Bilateral artificial intra-ocular lenses. Paranasal sinuses are clear. Trace dependent bilateral mastoid opacification. The middle ears are clear. A laryngeal airway is in place. No concerning scalp or calvarial abnormalities. IMPRESSION IMPRESSION No acute intracranial abnormality or evidence of structural cause for headache. Small chronic right cerebellar infarcts. Moderate nonspecific white matter disease, likely chronic small vessel ischemic disease. Patient notes some episodic tremor in her right hand when she uses her iPad. Reviewing her chart she is complained of tremors before. She is on lithium but she indicates her level was recently checked in his low Past Medical History: Diagnosis Date Acid reflux [...] 01/21/2013 Temporomandibular joint disorders, unspecified 07/14/2010 Patient Active Problem List Diagnosis Code HTN, [...] C. 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 [facility] [place] [facility] Yvette Kaur PA-C CERVICAL HEMILAMINECTOMY cage CHEMOTHERAPY 2012 left breast CA COLONOSCOPY W/ BIOPSY (RECTUM) 06/27/2009 await path & aspirate results, diverticulosis & Ext Hemmorrhoids COLONOSCOPY W/ LESION REMOVAL, SNARE 07/30/2006 repeat 5 yrs repeat in 5 years COLONOSCOPY, DIAGNOSTIC (RECTUM) 09/21/2014 adenomatous polyps, diverticulosis, repeat 5 yrs/COLONOSCOPY FLEXIBLE PROXIMAL DIAGNOSTIC performedby Bryn Christiansen MD at ENDOSCOPY [facility] COLONOSCOPY, DIAGNOSTIC (RECTUM) 09/13/2019 sigmoid diverticulosis/biopsies show adenomatous polyps/recall 2 years/COLONOSCOPY FLEXIBLE PROXIMAL DIAGNOSTIC performed by Whit Martínez MD at ENDOSCOPY [facility] COLONOSCOPY, DIAGNOSTIC (RECTUM) N/A 09/01/2022 benign adenomatous polyps, diverticulosis, repeat 3 yrs / COLONOSCOPY FLEXIBLE PROXIMAL DIAGNOSTIC performed by Walt Muniz MD at ENDOSCOPY [facility] CYSTOSCOPY 11/19/2008 with sounds CYSTOSCOPY 09/24/2006 EGD, FLEXIBLE, DIAGNOSTIC 04/08/09 done normal exam EGD, FLEXIBLE, DIAGNOSTIC 03/30/2012 UPPER GI ENDOSCOPY DIAGNOSTIC performed by Walt Muniz MD at ENDOSCOPY [facility] EGD, FLEXIBLE, DIAGNOSTIC 07/06/2017 KAT - normal results / [facility] EGD, FLEXIBLE, DIAGNOSTIC 08/30/2020 Normal scope / biopsies from your duodenum and stomach returned normal, showed reflux / ESOPHAGOGASTRODUODENOSCOPY (EGD), FLEXIBLE, TRANSORAL, DIAGNOSTIC performed by Whit Martínez MD at ENDOSCOPY [facility] EGD, W/ENDOSCOPIC US 12/10/2022 gastric polyp/sludge and polyp gallbladder/biopsies normal/ESOPHAGOGASTRODUODENOSCOPY (EGD), FLEXIBLE, TRANSORAL, ENDOSCOPIC ULTRASOUND performed by Junior Us MD at ENDOSCOPY [facility] EXPLORATION OF NIPPLE Left 05/23/2014 05/23/2014 NIPPLE EXPLORATION Dx no evidence of invasive carcinoma , proliferative fibrocystic changes Left performed by Minda Almodovar MD at OR [facility] INFORMATION Low back surgery INFORMATION 05/13/2008 neck surgery INTRANASAL BIOPSY ? 1999- Nasal polypectomy MISCELLANEOUS ORDER ([facility] ONLY) Right 10/07/2016 RLL cyst removed Holden--eye [...] LEG PRIMARY WITHOUT GRAFT performed by Nuha Dosuza DPM at OR [facility] REVISE UPPER EYELID/EXCESS SKIN Bilateral 11/07/2014 [place] US GUIDED BREAST BIOPSY LEFT Left 01/03/2013 malignant Social History Socioeconomic History Marital status: Spouse [...] Resource Strain: Not on file Food Insecurity: Not on file Transportation Needs: Not on file Physical Activity: Not on file Stress: Not on file Social Connections: Not on file Intimate Partner Violence: Not on file Housing Stability: Not on file Family History Problem Relation Age of Onset Hypertension Mother upper 80s Dementia Mother Other (poor circulation) Mother Other (diabetic) Father Cancer No significant family history Heart Disorder No significant family history Stroke No significant family history Thyroid Disorder No significant family history Eye Problems No significant family history Denies FH: AMD, Glaucoma, RD's or Blindness Breast Cancer No significant family history Current Outpatient Medications Medication Sig Dispense Refill [...] taking differently: daily.) 90 Tablet 1 Ipratropium [place] 0.03 % Nasal Solution (Atrovent) USE [...] [Pantoprazole Sodium Sesquihydrate] Other (Please comment) headache Results for orders placed or performed in visit on 12/31/22 CBC Result Value Ref Range WBC 9.98 4.00 - 10.80 K/uL RBC 4.48 3.85 - 5.15 M/uL HGB 12.8 12.0 - 15.3 g/dL HCT 39.8 36.0 - 45.2 % MCV 88.8 81.5 - 97.5 fL MCH 28.6 27.0 - 34.0 pg MCHC 32.2 32.0 - 36.0 g/dL RDW 13.9 11.5 - 15.5 % PLT 261 140 - 400 K/uL MPV 8.8 6.6 - 11.1 fL Results for orders placed or performed in visit on 11/24/22 BASIC METABOLIC PANEL Result Value Ref Range BUN 13 6 - 20 mg/dL Creatinine 1.1 (H) 0.5 - 1.0 mg/dL Estimated Glomerular Filtration Rate 52 (L) >=60 mL/min Sodium 144 135 - 146 mmol/L Potassium 4.2 3.5 - 5.1 mmol/L Chloride 106 98 - 107 mmol/L CO2 24 22 - 32 mmol/L Anion Gap 14 7 - 15 mmol/L Glucose 95 70 - 120 mg/dL Calcium 9.9 8.4 - 10.2 mg/dL Results for orders placed or performed in visit on 11/24/22 LIPID PANEL WITH DIRECT LDL IF TG IS HIGH Result Value Ref Range Triglycerides 258 (H) <=174 mg/dL Cholesterol 178 <200 mg/dL HDL Cholesterol 54 >49 mg/dL Non-HDL Cholesterol 124 <=159 mg/dL Lab Results Component Value Date/Time HEMOGLOBIN A1C - [facility] 4.8 07/25/2014 02:24 PM Lab Results Component Value Date/Time TSH - [facility] 1.15 04/16/2022 10:18 AM TSH - [facility] 1.40 06/03/2021 03:28 PM TSH - [facility] 3.96 02/20/2021 11:13 AM TSH - [facility] 1.05 06/30/2018 10:18 AM TSH - [facility] 0.69 10/25/2017 09:49 AM TSH - [facility] 2.26 11/03/2016 10:03 AM MATEO HUBER SCREEN Date Value Ref Range Status 06/04/2016 NEGATIVE Final 05/11/2011 NEGATIVE Final Results for orders placed or performed in visit on 06/03/21 VITAMIN B12 Result Value Ref Range Vitamin B12 730 232-1,245 pg/mL VITAMIN D 25 OH D2 (no units) Date Value 12/23/2007 <4 12/23/2007 Unit: ng/mL 12/23/2007 (NOTE) 25-OHD3 indicates both endogenous production and supplementation. 25-OHD2 is an indicator of exogenous sources such as diet or supplementation. Therapy is based on measurement of Total 25-OHD, with levels <20 ng/mL indicative of Vitamin D deficiency while levels between 20 ng/mL and 30 ng/mL suggest insufficiency. Optimal levels are >30 ng/mL. VITAMIN D 25 OH D3 (no units) Date Value 12/23/2007 42 12/23/2007 Unit: ng/mL VITAMIN D 25 TOTAL (no units) Date Value 12/23/2007 42 12/23/2007 Reference range: 20 to 100Unit: ng/mL 25OH VITAMIN D TOTAL (ng/mL) Date Value 11/09/2019 36 11/22/2018 26 Vitamin D Level Interpretation deficient: <20 ng/ml insufficient: 20-30 ng/ml normal: 31-100 ng/ml REVIEW OF SYSTEMS: As above PHYSICAL EXAM: BP 132/65 | Pulse 79 | Temp 36.6 C (97.8 F) (Tympanic) | Resp 16 | Wt 87.1 kg (192 lb) | BMI 30.07 kg/m | BSA 2.03 m No resting tremor and no intention tremor noted IMPRESSION: Posttraumatic headache headaches are improved decreased gabapentin 100 mg per week until off 100 mg tabs. Continue gabapentin 300 which the patient took prior to this escalation. Notify me if the headaches escalated Presumed episodic tremor monitor could be related to lithium fortunately a recent lithium level wasnormal. Benign positional vertigo although the patient was not able to have a Sai maneuver the vertigo has improved. I did demonstrate labyrinthine exercises to her. Return as needed Sissy Ellis MD 01/15/2023 9:18 AM T documented in this encounter Nursing Notes * RISHI Bundy - 01/15/2023 8:21 AM EDT Chief Complaint Patient presents with Return Neuro documented in this encounter Plan of Treatment Upcoming Encounters Date Type Specialty Care Team Description 01/15/2023 Laboratory [facility] [address] [facility] [address] Ar[facility] 01/20/2023 Office Visit Gastroenterology Rama Rojas CRNP [address] [place] [address] 01/25/2023 Office Visit Orthopedics Ren Lyn DO [address] [place] [address] 02/03/2023 Office Visit Gynecology Urology Joaquin Johns MD [address] [place] [address] Nurse Cherelle Mattson [address] [place] [address] 02/11/2023 Office Visit Otolaryngology Idalia Lora PA-C [address] [place] [address] 03/09/2023 Hospital Encounter Surgery Minda Almodovar MD [address] [place] [address] 03/09/2023 Surgery Surgery Minda Almodovar MD [address] [place] [address] LAPAROSCOPIC CHOLECYSTECTOMY 03/23/2023 Office Visit General Surgery Minda Almodovar MD [address] [place] [address] 04/06/2023 Hospital Encounter Endoscopy Huyen Marmolejo, DO [address] [place], [place] [address] 04/06/2023 Surgery Endoscopy Huyen Marmolejo, DO [address] [place], [place] [address] COLONOSCOPY FLEXIBLE PROXIMAL DIAGNOSTIC 04/21/2023 Office Visit Family Medicine Dav Hargrove MD [address] [place] [address] 04/22/2023 Imaging Radiology 08/27/2023 Office Visit Allergy & Immunology Yordan Jones MD [address] [place] [place] [address] 11/05/2023 Office Visit Nephrology Bonnie Trevizo MD 200 [facility] [place] [address] Scheduled Procedures Name Priority Associated Diagnoses Date/Ti [...] this encounter Medical Devices Implanted Type Area Customer Account Executive Device Identifier Shelf Expiration Date Model / Serial / Lot Zanderclip 16mm 235cm - [id number] Implanted:Qty: 2 on 12/10/2022 by Junior Us MD at ENDOSCOPY [facility] Stomach MICRO TECH ENDOSCOPY 10/13/2023 [id number] / / [id number] documented as of this encounter Visit Diagnoses Diagnosis Benign paroxysmal positional vertigo, unspecified laterality- Primary Intractable tension-type headache, unspecified chronicity pattern Tremor Abnormal involuntary movements Gallbladder polyp Cholesterolosis of gallbladder Diarrhea, unspecified type History of Clostridioides difficile infection documented in this encounter Care Teams Supervisory Investigative Specialist Relationship Specialty Start Date End Date Dav Hargrove MD [address] [facility] [place] [address] PCP - General Family Medicine 05/28/20 documented as of this encounter
--- OUTSIDE RECORDS SUMMARY | 2023-06-13 22:51 | External Medical Summary | Summary of Care ---
Author Name Unknown Organization [facility] Address [address] [facility] [place] [address] Phone [phone] Care Team Providers Care Counseling Services Manager Name Role Phone Dav Hargrove MD Primary Care Provider [phone] Reason for Visit * Reason Comments Epigastric Pain Pt here with , states every morning at 2am she wakes with acid reflux. Pt then starts coughing and has been coughing up blood Encounter Details Date Type Department Care Team Description 01/04/2023 Office Visit Family [facility] [address] [place] [address] Dav Hargrove MD [address] [employer] [place] [address] Dysuria*; Gastroesophageal reflux disease [...] taking differently: Daily(AM), Reported on 12/07/2022 Ipratropium [place] 0.03 % Nasal Solution [...] mRNA, LNP-s, No Pre serve, 2-Dose Series ([employer]) 07/02/2020,06/06/2020 Pneumococcal Conjugate Vacc, 13 Valent (Prevnar) [...] is [facility] a [facility], including a proton pump inhibitor for GERD. [...] taking differently: daily.) 90 Tablet 1 Ipratropium [place] 0.03 % Nasal Solution [...] Office Visit Nephrology Bonnie Trevizo MD [address] [place] [address] 01/14/2023 Appointment Radiology 01/14/2023 Hospital Encounter Surgery [facility] In And Out Surgery [address] [place], [place] [id number] 01/14/2023 Surgery Surgery [facility] In And Out Surgery [address] [place] [address] ANESTHESIA FOR NON-INVASIVE IMAGING (MRI OR CT) 01/15/2023 Office Visit Neurology Sissy Ellis MD [address] [place] [address] 01/20/2023 Office Visit Gastroenterology Rama Rojas CRNP [address] [place] [address] 01/25/2023 Office Visit Orthopedics Ren Lyn DO [address] [place] [address] 02/03/2023 Office Visit Gynecology Urology Joaquin Johns MD [address] [place] [address] Nurse Cherelle Mattson [address] [place] [address] 02/11/2023 Office Visit Otolaryngology Idalia Lora PA-C [address] [place] [address] 03/09/2023 Hospital Encounter Surgery Minda Almodovar MD [address] [place] [address] 03/09/2023 Surgery Surgery Minda Almodovar MD [address] [place] [address] LAPAROSCOPIC CHOLECYSTECTOMY 03/23/2023 Office Visit General Surgery Minda Almodovar MD [address] [place] [address] 04/06/2023 Hospital Encounter Endoscopy Huyen Marmolejo, DO [address] [place] [address] 04/06/2023 Surgery Endoscopy Huyen Marmolejo, DO [address] [place] [address] COLONOSCOPY FLEXIBLE PROXIMAL DIAGNOSTIC 04/21/2023 Office Visit Family Medicine Dav Hargrove MD [address] [place] [address] 04/22/2023 Imaging Radiology 08/27/2023 Office Visit Allergy & Immunology Yordan Jones MD [address] [place] [address], [place] [address] Pending Results Name Type Priority Associated Diagnoses [...] this encounter Medical Devices Implanted Type Area Senior Corporate Recruiter Device Identifier Shelf Expiration Date Model / Serial / Lot Sureclip 16mm 235cm - [id number] Implanted:Qty: 2 on 12/10/2022 by Junior Us MD at ENDOSCOPY [facility] Stomach MICRO TECH ENDOSCOPY 10/13/2023 [id number] / / [id number] documented as of this encounter Visit Diagnoses Diagnosis Dysuria- Primary Gastroesophageal reflux disease with esophagitis without hemorrhage Post concussion syndrome Postconcussion syndrome Gallbladder polyp Cholesterolosis of gallbladder Diarrhea, unspecified type History of Clostridioides difficile infection documented in this encounter Care Teams Counseling Services Manager Relationship Specialty Start Date End Date Dav Hargrove MD [address] [facility] [place] [address] PCP - General Family Medicine 05/28/20 documented as of this encounter
--- OUTSIDE RECORDS SUMMARY | 2023-06-13 22:51 | External Medical Summary | Summary of Care ---
Author Name Unknown Organization [facility] Address [address] [place] [address] Phone [phone] Care Team Providers Care Police Dispatcher Name Role Phone Dav Hargrove MD Primary Care Provider [phone] Reason for Visit * Reason Onset Date Comments Films 01/14/2023 Encounter Details Date Type Department Care Team Description 01/14/2023 Telephone Radiology Film File [address] [place], [place] [id number] Rocael Milan, DO [address] [place] [address] Films Allergies Active Allergy Reactions Severity Noted Date [...] as of this encounter (statuses as of 01/14/2023) Medications Medication Sig Dispensed Refills Start Date [...] HFA 108 (90 Base) MCG/ACT Inhalation Aerosol SolutionIndication s:Wheeze Inhale by mouth 2 Puffs every 4 [...] 04/28/2022 Active Furosemide 20 MG Oral Tablet (Lasix)Indications :Diastolic dysfunction TAKE 1 TABLET BY MOUTH DAILY 90 Tablet 3 04/28/2022 Active Famotidine 40 MG Oral Tablet (Pepcid)Indication [...] 07/17/2022 Active Pravastatin Sodium 80 MG Oral TabletIndications: Dyslipidemia, goal LDL below 130 TAKE 1 TABLET BY MOUTH ONCE DAILY 90 Tablet 1 08/31/2022 Active Additional Information Patient taking differently: Indications: in evening, Reported on 12/07/2022 amLODIPine Besylate 10 MG Oral Tablet (Norvasc)Indicatio ns:Chronic kidney disease with symptom management only, stage 3 (moderate) (HCC),HTN, goal below 130/80 TAKE 1 TABLET BY MOUTH DAILY 90 Tablet 1 08/31/2022 Active Additional Information Patient taking differently: Daily(AM), Reported on 12/07/2022 Atenolol 50 MG Oral Tablet (Tenormin)Indicati ons:HTN, goal below 140/90 TAKE 1 TABLET BY MOUTH ONCE DAILY 90 Tablet 1 08/31/2022 Active Additional Information Patient taking differently: Daily(AM), Reported on 12/07/2022 Ipratropium [place] 0.03 % Nasal Solution (Atrovent) USE 2 [...] at bedtime 120 Tablet 5 01/04/2023 Active Cephalexin 500 MG Oral Capsule Take 1 Capsule by mouth in the morning and 1 Capsule before bedtime. Do all this for 10 days. 20 Capsule 0 01/04/2023 01/14/2023 Active documented as of this encounter (statuses as of 01/14/2023) Active Problems Problem Noted Date Moderate mitral [...] as of this encounter (statuses as of 01/14/2023) Resolved Problems Problem Noted Date Resolved Date [...] as of this encounter (statuses as of 01/14/2023) Immunizations Name Administration Dates Next Due COVID-19 [...] encounter Miscellaneous Notes * Telephone Encounter - DEANN Spence - 01/14/2023 2:48 PM EDT Received patient request for 01/14/23 MRI images be put on disc for patient warp picker. CD created and sent to [facility]. Patient authorization completed at time of warp picker documented in this encounter Plan of Treatment Upcoming Encounters Date Type Specialty Care Team Description 01/15/2023 Nurse Only Nephrology Sp, Nurse Nephrology [address] [place] [address] 01/15/2023 Office Visit Neurology Sissy [place] MD [address] [place] [address] 01/20/2023 Office Visit Gastroenterology Rama Rojas CRNP [address] [place] [address] 01/25/2023 Office Visit Orthopedics Ren Lyn DO [address] [place] [address] 02/03/2023 Office Visit Gynecology Urology Joaquin Johns MD [address] [place] [address] Nurse Cherelle Mattson [address] [place] [address] 02/11/2023 Office Visit Otolaryngology Idalia Lora PA-C [address] [place] [address] 03/09/2023 Hospital Encounter Surgery Minda Almodovar MD [address] [place] [address] 03/09/2023 Surgery Surgery Minda Almodovar MD [address] [place] [address] LAPAROSCOPIC CHOLECYSTECTOMY 03/23/2023 Office Visit General Surgery Minda Almodovar MD [address] [place] [address] 04/06/2023 Hospital Encounter Endoscopy Huyen Marmolejo, DO [address] [place] [address] 04/06/2023 Surgery Endoscopy Huyen Marmolejo, DO [address] [place] [address] COLONOSCOPY FLEXIBLE PROXIMAL DIAGNOSTIC 04/21/2023 Office Visit Family Medicine Dav Hargrove MD [address] [place] [address] 04/22/2023 Imaging Radiology 08/27/2023 Office Visit Allergy & Immunology Yordan Jones MD [address] [facility] [place] [address] 11/05/2023 Office Visit Nephrology Bonnie Trevizo MD [address] [place] [address] Scheduled Procedures Name Priority Associated Diagnoses Date/Ti me ANESTHESIA FOR NON-INVASIVE IMAGING (MRI OR CT) Post concussion syndrome 01/14/2023 12:10 PM EDT LAPAROSCOPIC CHOLECYSTECTOMY Gallbladder polyp 03/09/2023 [...] this encounter Medical Devices Implanted Type Area Gas Meter Reader Device Identifier Shelf Expiration Date Model / Serial / Lot Sureclip 16mm 235cm - [id number] Implanted:Qty: 2 on 12/10/2022 by Junior Us MD at ENDOSCOPY [facility] Stomach MICRO TECH ENDOSCOPY 10/13/2023 [id number] / / [id number] documented as of this encounter Care Teams Police Dispatcher Relationship Specialty Start Date End Date Dav Hargrove MD [address] [place] [address] PCP - General Family Medicine 05/28/20 documented as of this encounter
--- OUTSIDE RECORDS SUMMARY | 2023-06-13 22:51 | External Medical Summary ---
Author Name Unknown Address Unknown Organization K01:[facility] - [address] [place] [address] Laboratory Report Ordering Provider Test Date Status CLARISA UMANZOR 01/15/2023 09:22:04 Final Observation Date Value Abnormality Reference (Units ) Status Parathyrin.intact [Mass/volume] in Serum or Plasma 01/15/2023 09:22:04 43 15-65 (pg/mL) Final Performing Location [facility] - [address] [place] [address]
--- OUTSIDE RECORDS SUMMARY | 2023-06-13 22:51 | External Medical Summary | Summary of Care ---
Author Name Unknown Organization [facility] Address [address] [place] [address] Phone [phone] Care Team Providers Care Financial Sales Consultant Name Role Phone Dav Hargrove MD Primary Care Provider [phone] Reason for Referral * Precert (Within 10 days (routine)) - Authorized Specialty Diagnoses / Procedures Referred By Heber gleason Referred To Contact Radiology Diagnoses Post concussion syndrome Procedures MRI BRAIN WITHOUT CONTRAST Rocael Milan DO [address] [place] [address] Referral ID Status Reason Start Date Expiration Date V isits Requested Visits Authorized [id number] Authorized 06/27/2022 [id number] Reason for Visit * Auth/Cert Specialty Diagnoses / Procedures Referred By Heber gleason Referred To Contact Diagnoses Post concussion syndrome Post concussion syndrome [F07.81] Procedures ANESTHESIA FOR CAT OR MRI SCAN ANESTHESIA FOR NON-INVASIVE IMAGING (MRI OR CT) Referral ID Status Reason Start Date Expiration Date Visits Re quested Visits Authorized [id number] Encounter Details Date Type Department Care Team Description 01/14/2023 Hospital Encounter OR [facility], OPERATING ROOM [facility], [facility] [address] [place] [address] [facility], In And Out Surgery [address] [place] [address] Allergies Active Allergy Reactions Severity Noted Date [...] 12/07/2022 amLODIPine Besylate 10 MG Oral Tablet (Norvasc)Indicati ons:Chronic kidney disease with symptom management only, stage 3 (moderate) (HCC),HTN, goal below 130/80 TAKE 1 TABLET BY MOUTH DAILY 90 Tablet 1 3 Active Additional Information Patient taking differently: Daily(AM), Reported on 12/07/2022 Atenolol 50 MG Oral Tablet (Tenormin)Indicat ions:HTN, goal below 140/90 TAKE 1 TABLET BY MOUTH ONCE DAILY 90 Tablet 1 3 Active Additional Information Patient taking differently: Daily(AM), Reported on 12/07/2022 Ipratropium [place] 0.03 % Nasal Solution (Atrovent) USE 2 [...] at bedtime 120 Tablet 5 3 Active Omeprazole 40 MG Oral Capsule Delayed Release (PriLOSEC)Indicat ions:Gastroesopha geal reflux disease with esophagitis without hemorrhage Take by mouth 1 Capsule in the morning. 1 hour before the first meal of the day. 90 Capsule 3 2 11/04/19 23 Discontinued Sucralfate 1 GM Oral Tablet (Carafate) TAKE 1 TABLET BY MOUTH IN THE MORNING AND 1 TABLET BY MOUTH BEFORE BEDTIME 180 Tablet 3 3 11/04/19 23 Discontinued Cephalexin 500 MG Oral Capsule Take 1 Capsule by mouth in the morning and 1 Capsule before bedtime. Do all this for 10 days. 20 Capsule 0 3 01/15/20 23 documented as of this encounter (statuses as [...] Sign Reading Time Taken Comments Blood Pressure 133/69 01/14/2023 1:45 PM EDT Pulse 70 01/14/2023 2:15 PM EDT Temperature 36.3 C (97.3 F) 01/14/2023 2:15 PM ED T Respiratory Rate 13 01/14/2023 1:45 PM EDT Oxygen Saturation 97% 01/14/2023 2:15 PM EDT Inhaled Oxygen Concentration - - Weight - - Height - - Body Mass Index - - documented in this encounter Nursing Notes * Alyssa Graf RN - 01/14/2023 1:19 PM EDT Dual Licensed Skin Assessment completed by Tyree Graf RN and Yani Cooper RN. The patient is/has a N/A Skin Breakdown (includes non blanchable erythema): No * Anamaria Cooper RN - 01/14/2023 11:00 AM EDT Dual Licensed Skin Assessment completed by Davide Cooper RN and Nando Graf RN. The patient is/has a N/A Skin Breakdown (includes non blanchable erythema): No * Marlen Benitez LPN - 01/07/2023 10:48 AM EDT NO ANESTHESIA EVAL REQUESTED PER CASE DOCUMENTATION. PREOP PATIENT INFORMATION AND EDUCATION: Pre-operative chart review completed. MEDICATION INSTRUCTIONS: The day of surgery/procedure, you may TAKE the following medications with a sip of water up to 2 hours prior to your arrival time: CEPHALEXIN OMEPRAZOLE BUSPIRONE GABAPENTIN AMLODIPINE ATENOLOL PRAVASTATIN TIZANIDINE TRAMADOL PILOCARPINE METHOCARBAMOL ANY EYE DROPS NEEDED LORAZEPAM ONDANSETRON MECLIZINE ALBUTEROL INHALER LAMICTAL STOP taking the following medications the noted number of days prior to surgery/procedure unless otherwise specified by your surgeon: Please follow surgeon's instructions regarding use of Aspirin, Coumadin, Plavix, Eliquis, and any other blood thinner including NSAIDs (non-steroidal anti- inflammatory drugs, eg, Advil, Ibuprofen, Motrin, Aleve, Naproxen). 10 days prior to surgery/procedure Stop all Herbal supplements, Green Tea, Turmeric, Melatonin, CBD, THC, etc. Stop all Vitamins (including Vitamin E) 24 hours prior to surgery/procedure DO NOT consume any alcohol. DO NOT use medical marijuana. DO NOT smoke or use tobacco products of any kind after midnight prior to surgery. *Using any of these products may increase your risks of procedural complications. IF IT IS LESS THAN RECOMMENDED STOPPAGE TIME PLEASE STOP AT TIME OF NOTIFICATION. FASTING RECOMMENDATIONS: To reduce risk, it is important for all elective surgery patients to follow the specific fasting guidelines listed below. DO NOT EAT after midnight on the night prior to your surgery date. You are allowed to drink clear liquids up to two hours prior to arrival time to the hospital or surgery center. Examples of clear liquids include water, clear fruit juice without pulp, clear carbonated beverages, clear tea, and black coffee. Any drinks given by your surgical service take as directed. /pediatric patients who currently drink breast milk, formula, and non-human milk must not eat after midnight. These patients are allowed to drink only the liquids listed below up to two hours prior to arrival time to the hospital or surgery center: Ingested Material Minimum Fasting Time Clear liquid After midnight up to 2 hours prior to arrival time Breast milk Up to 4 hours prior to arrival time formula Up to 6 hours prior to arrival time Non-human milk Up to 6 hours prior to arrival time THE DAY BEFORE YOUR SURGERY: -Drink plenty of fluid the day before your surgery. Contact your surgeon's office if you develop any of the following within 2 weeks of surgery: A cold Infection Fever Shingles Chicken pox or exposure to chicken pox Open areas such as scrapes, cuts, redman or other skin conditions Rashes GENERAL INSTRUCTIONS FOR PREPARING FOR SURGERY: BATHING INSTRUCTIONS: Bathe the evening prior to and the morning of surgery/procedure. Cleanse your body using ONLY anti-bacterial soap (eg, Dial, Safeguard) or any specific soap/cleansers and instructions provided by your surgeon (eg, Chlorhexidine). -You should brush your teeth the morning of surgery. Do NOT apply any lotions, powders, sprays, creams, oils, make-up, or deodorants after bathing. No hairspray, or nail welsh on fingers or toes. Day of surgery/procedure do not use tampons. If you wear contacts wear your eyeglasses if available otherwise bring your contact supplies with you to remove them prior to your surgery/procedure. If you wear glasses or dentures, please bring cases in which you can store them during your surgery. Please remove all piercings and jewelry and leave them at home. Wear comfortable and loose clothing. -Please leave all valuables at home. -If you use a CPAP and are staying overnight, please bring your mask and tubing with you to the hospital. -If you use an assistive mobility device (walker, cane, etc), please label it with your name and bring to hospital. -An escort cdl driver is required if you are being discharged the same day of the surgery. You should have a responsible adult over the age of 18 [address] you home. This person should be present with youin the hospital at the time of discharge and for the first 24 hours after the surgery to support your needs. If you are taking a taxi home, you must have your responsible democrat accompany you in the taxi ride home at the time of discharge. OR times subject to change. Please check voiceKirusail messages the day/evening before your surgery forany updates. PRE-OP: You will be taken to the pre-op area where your vital signs (blood pressure, pulse and temperature)will be taken. Any preparations that need to be done will be done there. When it is time for your surgery, you will be taken to the operating room. PARENTS OF PEDIATRIC PATIENTS WILL BE ALLOWED TO STAY WITH THEIR CHILDREN UNTIL THEY ARE ESCORTED TO THE OPERATING ROOM OUTPATIENT SURGERY PATIENTS: After your surgery you will be taken to the Same Day Surgery Unit when you are awake and will go home from there. You will get instructions about your home care before you leave. Arrange to have someone drive you home from the hospital. You may not drive for 24 hours after anesthesia. You must havean adult stay with you at home for 24 hours after your operation. This is very important. If you are not able to comply with these guidelines, your Short Stay surgery cannot be done. ADMISSION PATIENTS: After your stay in the recovery area, you will be taken to your room. Your family may visit you in your room based on current visitation policy. If a next day discharge is expected, it is important to make arrangements for a cdl driver to take you home. Please be aware our visitation policies are subject to change Professionals, attendants, caregivers or family members are allowable visitors for patients with intellectual, developmental or cognitive disabilities, communication barriers or behavioral concerns. Because patients' and families' needs vary, they will be taken into account when [place] [address] Contact #: [phone] You will receive a call between 12:00 PM and 7:00 PM on the day prior to your MRI with anesthesia to provide you with your arrival time and to review your instructions. If you have not received your call by 7:00 PM, please call [phone]. Directions to MRI Department from the Lori Entrance: Enter through Lori Entrance and proceed to the right. Continue past the C and D elevators to Aron elevator. Take the A elevator down to the lower level. Proceed out of the elevator turning left in the hallway. The MRI department will be down the hallway on the right side. You will check in whenyou arrive at the MRI department. Directions to MRI Department from the East Entrance: Enter the East entrance and follow the hallway to the J elevator. Take the J elevator up to Lower Level 1. After exiting the elevator, proceed to the right. Turn left in the long hallway and continue. The MRI department will be located on the left side. You will check in when you arrive at the MRI department. Directions to MRI Department from the Parking Garage: Enter the [facility] and proceed down the long hallway. At the end of the baird,turn left, take the J elevator down to Lower Level 1. After exiting the elevator, proceed to the right. Turn left in the long hallway and continue. The MRI department will be located on the left side. You will check in when you arrive at the MRI department. [facility]ING [facility] * Marlen Benitez LPN - 10/05/2022 7:29 AM EDT NO ANESTHESIA EVAL REQUESTED PER CASE DOCUMENTATION. PREOP PATIENT INFORMATION AND EDUCATION: Pre-operative chart review completed. MEDICATION INSTRUCTIONS: The day of surgery/procedure, you may TAKE the following medications with a sip of water up to 2 hours prior to your arrival time: NITROFURANTOIN BUSPIRONE GABAPENTIN AMLODIPINE ATENOLOL PRAVASTATIN VANCOMYCIN TIZANIDINE TRAMADOL DICYCLOMINE GABAPENTIN ANY EYE DROPS NEEDED LORAZEPAM ONDANSETRON MECLIZINE ANY EYE DROPS ORDERED LAMICTAL STOP taking the following medications the noted number of days prior to surgery/procedure unless otherwise specified by your surgeon: Please follow surgeon's instructions regarding use of Aspirin, Coumadin, Plavix, Eliquis, and any other blood thinner including NSAIDs (non-steroidal anti-inflammatory drugs, eg, Advil, Ibuprofen,Motrin, Aleve, Naproxen). 10 days prior to surgery/procedure Stop all Herbal supplements, Green Tea, Turmeric, Melatonin, CBD, THC, etc. Stop all Vitamins (including Vitamin E) 24 hours prior to surgery/procedure DO NOT consume any alcohol. DO NOT use medical marijuana. DO NOT smoke or use tobacco products of any kind after midnight prior to surgery. *Using any of these products may increase your risks of procedural complications. IF IT IS LESS THAN RECOMMENDED STOPPAGE TIME PLEASE STOP AT TIME OF NOTIFICATION. FASTING RECOMMENDATIONS: To reduce risk, it is important for all elective surgery patients to follow the specific fasting guidelines listed below. DO NOT EAT after midnight on the night prior to your surgery date. You are allowed to drink clear liquids up to two hours prior to arrival time to the hospital or surgery center. Examples of clear liquids include water, clear fruit juice without pulp, clear carbonated beverages, clear tea, and black coffee. Any drinks given by your surgical service take as directed. /pediatric patients who currently drink breast milk, infant formula, and non-human milk must not eat after midnight. These patients are allowed to drink only the liquids listed below up to two hours prior to arrival time to the hospital or surgery center: Ingested Material Minimum Fasting Time Clear liquid After midnight up to 2 hours prior to arrival time Breast milk Up to 4 hours prior to arrival time Infant formula Up to 6 hours prior to arrival time Non-human milk Up to 6 hours prior to arrival time THE DAY BEFORE YOUR SURGERY: -Drink plenty of fluid the day before your surgery. Contact your surgeon's office if you develop any of the following within 2 weeks of surgery: A cold Infection Fever Shingles Chicken pox or exposure to chicken pox Open areas such as scrapes, cuts, redman or other skin conditions Rashes GENERAL INSTRUCTIONS FOR PREPARING FOR SURGERY: BATHING INSTRUCTIONS: Bathe the evening prior to and the morning of surgery/procedure. Cleanse your body using ONLY anti-bacterial soap (eg, Dial, Safeguard) or any specific soap/cleansers and instructions provided by your surgeon (eg, Chlorhexidine). -You should brush your teeth the morning of surgery. Do NOT apply any lotions, powders, sprays, creams, oils, make-up, or deodorants after bathing. No hairspray, or nail welsh on fingers or toes. Day of surgery/procedure do not use tampons. If you wear contacts wear your eyeglasses if available otherwise bring your contact supplies with you to remove them prior to your surgery/procedure. If you wear glasses or dentures, please bring cases in which you can store them during your surgery. Please remove all piercings and jewelry and leave them at home. Wear comfortable and loose clothing. -Please leave all valuables at home. -If you use a CPAP and are staying overnight, please bring your mask and tubing with you to the hospital. -If you use an assistive mobility device (walker, cane, etc), please label it with your name and bring to hospital. -An escort cdl driver is required if you are being discharged the same day of the surgery. You should have a responsible adult over the age of 18 [address] you home. This person should be present with youin the hospital at the time of discharge and for the first 24 hours after the surgery to support your needs. If you are taking a taxi home, you must have your responsible democrat accompany you in the taxi ride home at the time of discharge. OR times subject to change. Please check voicemail messages the day/evening before your surgery forany updates. PRE-OP: You will be taken to the pre-op area where your vital signs (blood pressure, pulse and temperature)will be taken. Any preparations that need to be done will be done there. When it is time for your surgery, you will be taken to the operating room. PARENTS OF PEDIATRIC PATIENTS WILL BE ALLOWED TO STAY WITH THEIR CHILDREN UNTIL THEY ARE ESCORTED TO THE OPERATING ROOM OUTPATIENT SURGERY PATIENTS: After your surgery you will be taken to the Same Day Surgery Unit when you are awake and will go home from there. You will get instructions about your home care before you leave. Arrange to have someone drive you home from the hospital. You may not drive for 24 hours after anesthesia. You must havean adult stay with you at home for 24 hours after your operation. This is very important. If you are not able to comply with these guidelines, your Short Stay surgery cannot be done. ADMISSION PATIENTS: After your stay in the recovery area, you will be taken to your room. Your family may visit you in your room based on current visitation policy. If a next day discharge is expected, it is important to make arrangements for a cdl driver to take you home. Please be aware our visitation policies are subject to change Professionals, attendants, caregivers or family members are allowable visitors for patients with intellectual, developmental or cognitive disabilities, communication barriers or behavioral concerns. Because patients' and families' needs vary, they will be taken into account when applying [place] [address] Contact #: [phone] You will receive a call between 12:00 PM and 7:00 PM on the day prior to your MRI with anesthesia to provide you with your arrival time and to review your instructions. If you have not received your call by 7:00 PM, please call [phone]. Directions to MRI Department from the Lori Entrance: Enter through Lori Entrance and proceed to the right. Continue past the C and D elevators to Aron elevator. Take the A elevator down to the lower level. Proceed out of the elevator turning left in the hallway. The MRI department will be down the hallway on the right side. You will check in whenyou arrive at the MRI department. Directions to MRI Department from the East Entrance: Enter the East entrance and follow the hallway to the J elevator. Take the J elevator up to Lower Level 1. After exiting the elevator, proceed to the right. Turn left in the long hallway and continue. The MRI department will be located on the left side. You will check in when you arrive at the MRI department. Directions to MRI Department from the Parking Garage: Enter the [facility] and proceed down the long hallway. At the end of the baird, turn left, take the J elevator down to Lower Level 1. After exiting the elevator, proceed to the right. Turn left in the long hallway and continue. The MRI department will be located on the left side. You will check in when you arrive at the MRI department. THANK YOU FOR CHOOSING [facility]! documented in this encounter Plan of Treatment Upcoming Encounters Date Type Specialty Care Team Description 01/15/2023 Nurse Only Nephrology Sp, Nurse Nephrology [address] [place] [address] 01/15/2023 Office Visit Neurology Sissy Ellis MD [address] [place] [address] 01/20/2023 Office Visit Gastroenterology Rama Rojas CRNP [address] [place] [address] 01/25/2023 Office Visit Orthopedics Ren Lyn DO [address] [place] [address] 02/03/2023 Office Visit Gynecology Urology Joaquin Johns MD [address] [place], [place] [id number] Nurse Cherelle Mattson [address] [place] [address] 02/11/2023 Office Visit Otolaryngology Idalia Lora PA-C [address] [place] [address] 03/09/2023 Hospital Encounter Surgery Minda Almodovar MD [address] [place] [address] 03/09/2023 Surgery Surgery Minda Almodovar MD [address] [place] [address] LAPAROSCOPIC CHOLECYSTECTOMY 03/23/2023 Office Visit General Surgery Minda Almodovar MD [address] [place] [address] 04/06/2023 Hospital Encounter Endoscopy Huyen Marmolejo, DO [address] [place] [address] 04/06/2023 Surgery Endoscopy Huyen Marmolejo, DO [address] [place] [address] COLONOSCOPY FLEXIBLE PROXIMAL DIAGNOSTIC 04/21/2023 Office Visit Family Medicine Dav Hargrove MD [address] [place] [address] 04/22/2023 Imaging Radiology 08/27/2023 Office Visit Allergy & Immunology Yordan Jones MD [address] [place] [address] 11/05/2023 Office Visit Nephrology Bonnie Trevizo MD [address] [place] [address] Scheduled Procedures Name Priority Associated Diagnoses Date/Ti [...] Depression Screening 12/12/2022 12/12/2021 TSH 04/16/2023 04/16/2022, /05/2021, 02/20/2021, Additional history exists DTaP,Tdap,and Td Vaccines [...] this encounter Medical Devices Implanted Type Area Levers Lace Machine Operator Device Identifier Shelf Expiration Date Model / Serial / Lot Sureclip 16mm 235cm - [id number] Implanted:Qty: 2 on 12/10/2022 by Junior Us MD at ENDOSCOPY [facility] [address] Stomach MICRO TECH ENDOSCOPY 10/13/2023 [id number] / / [id number] documented as of this encounter Procedures Procedure Name Priority Date/Time Associated Diagnosis Comments MRI BRAIN WITHOUT CONTRAST Routine 01/14/2023 1:00 PM EDT Post concussion syndrome documented in this encounter Results * MRI BRAIN WITHOUT CONTRAST (01/14/2023 1:00 PM EDT) Anatomical Region Laterality Modality Neuro, Head Magnetic Resonan ce 01/14/2023 2:28 PM EDT Impressions 01/14/2023 2:25 PM EDT IMPRESSION No acute intracranial abnormality or evidence of structural cause for headache. Small chronic right cerebellar infarcts. Moderate nonspecific white matter disease, likely chronic small vessel ischemic disease. Narrative 01/14/2023 2:25 PM EDT EXAM MRI BRAIN WITHOUT CONTRAST-01/14/2023 1:00 pm HISTORY Headache; Chronic REDDY (>= 3 months); REDDY with refractory/debilitating pain; No known/automatically detected potential contraindications to MRI COMPARISON MRI neck [...] place. No concerning scalp or calvarial abnormalities. Procedure Note Griselda Young IV, MD - 01/14/2023 EXAM MRI BRAIN WITHOUT CONTRAST-01/14/2023 1:00 pm HISTORY Headache; Chronic REDDY (>= 3 months); REDDY with refractory/debilitating pain;No known/automatically detected potential contraindications to MRI COMPARISON MRI neck [...] intracranial abnormality or evidence of structural cause forheadache. Small chronic right cerebellar infarcts. Moderate nonspecific white matter disease, likely chronic small vesselischemic disease. Rocael CLINE MRI-MRA documented in this encounter Visit Diagnoses Diagnosis Post concussion syndrome Postconcussion syndrome Gallbladder polyp Cholesterolosis of gallbladder Diarrhea, unspecified type History of Clostridioides difficile infection documented in this encounter Administered Medications Inactive Administered Medications - up to 3 most recent administrations Medication Order MAR Action Action Date Dose Rate Site isolyte-S pH 7.4 infusion Intravenous, at 100 mL/hr, For Periop use. Plasma-LYTE 148, isolyte-S, and isolyte-S pH 7.4 are considered equivalent - including for MAR barcode scanning., CONTINUOUS, Starting on Demetrice 01/14/23 at 1145, Until Demetrice 01/14/23 at 1833, Pre-Op New Bag 01/14/2023 1:04 PM EDT documented in this encounter Active and Recently Administered Medications Times are shown in EDT. Continuous Medication Order 01/12/2023 01/13/2023 01/14/2023 isolyte-S pH 7.4 infusion Intravenous, at 100 mL/hr, For Periop use. Plasma-LYTE 148, isolyte-S, and isolyte-S pH 7.4 are considered equivalent - including for MAR barcode scanning., CONTINUOUS, Starting on Demetrice 01/14/23 at 1145, Until Demetrice 01/14/23 at 1833, Pre-Op 1304 (New Bag - Prov ider: Venu Lan CRNA)1314 (Anes Intra-Op Fluid - Provider: Venu Lan CRNA) documented in this encounter Care Teams Financial Sales Consultant Relationship Specialty Start Date End Date Dav Hargrove MD [address] [place] [address] PCP - General Family Medicine 05/28/20 documented as of this encounter
--- OUTSIDE RECORDS SUMMARY | 2023-06-13 22:52 | External Medical Summary | Summary of Care ---
Author Name Unknown Organization [facility] Address [address] [facility] [place] [address] Phone [phone] Care Team Providers Care Test Specialist Name Role Phone Dav Hargrove MD Primary Care Provider +1 [phone] Reason for Referral * Evaluate & Treat - Unlimited Visits (Within 10 days (routine)) - Authorized Specialty Diagnoses / Procedures Referred By Contac t Referred To Contact CEMENT WORKER - Urogynecology / Gynecology Urology Diagnoses Dysuria Dariana Fish CRNP [address] [place] [address] Referral ID Status Reason Start Date Expiration Date Visits Requested Visits Authorized [id number] Authorized Specialty Services Required 12/31/2022 999 999 Question Answer Referral Priority Within 10 days (routine) What condition is the patient being referred for? Chronic Bladder Pain/Interstitial Cystitis/Dysuria * Precert (Within 24 hrs (call dept; emergent)) - Authorized Specialty Diagnoses / Procedures Referred By Contac t Referred To Contact Radiology Diagnoses Pelvic pain in female Left lower quadrant abdominal pain Procedures CT ABD/PELVIS W WO IV CONTRAST AND W ORAL CONT Dariana Fish CRNP [address] [place] [address] Referral ID Status Reason Start Date Expiration Date V isits Requested Visits Authorized [id number] Authorized 12/31/2022 999 999 Reason for Visit * Reason Comments Acute UTI Sx Encounter Details Date Type Department Care Team Description 12/31/2022 Office Visit Family [facility] [address] [place] [address] Dariana Fish CRNP [address] [place] [address] Left lower quadrant abdominal pain*; Dysuria; Diverticulitis [...] as of this encounter (statuses as of 12/31/2022) Medications Medication Sig Dispensed Refills Start Date [...] taking differently: Daily(AM), Reported on 12/07/2022 Ipratropium [place] 0.03 % Nasal Solution (Atrovent) USE 2 [...] as of this encounter (statuses as of 12/31/2022) Active Problems Problem Noted Date Moderate mitral [...] as of this encounter (statuses as of 12/31/2022) Resolved Problems Problem Noted Date Resolved Date [...] as of this encounter (statuses as of 12/31/2022) Immunizations Name Administration Dates Next Due COVID-19 [...] couple weeks. Hx chronic c diff infection. Took full course of macrobid and received rocephin on . Started diarrhea 3 days ago. "Sporadic" andnot like prior c diff infection. Outpatient Medications Marked as [...] before bedtime. With 300 mg tabs. Ipratropium [place] 0.03 % Nasal Solution (Atrovent) USE 2 [...] Exam Vitals reviewed. Exam conducted with a inspector general present. Constitutional: Appearance: She is not ill-appearing. [...] few days now. documented in this encounter Plan of Treatment Upcoming Encounters Date Type Specialty Care Team Description 01/01/2023 Imaging Radiology 01/12/2023 Office Visit Nephrology Bonnie Trevizo MD [address] [place] [address] 01/14/2023 Appointment Radiology 01/14/2023 Hospital Encounter [place] [facility] [place] [address] [place], [place] [address] 01/14/2023 Surgery [place] [facility] [place] [address] [place] [address] ANESTHESIA FOR NON-INVASIVE IMAGING (MRI OR CT) 01/15/2023 Office Visit Neurology Sissy Ellis MD [address] [place] [address] 01/20/2023 Office Visit Gastroenterology Rama Rojas CRNP [address] [place] [address] 01/25/2023 Office Visit Orthopedics Ren Lyn, DO [address] [place] [address] 02/03/2023 Office Visit Gynecology Urology Joaquin Johns MD [address] [place] [address] Nurse Cherelle Mattson [address] [place] [address] 02/11/2023 Office Visit Otolaryngology Idalia Lora PA-C [address] [place] [address] 03/09/2023 Hospital Encounter Surgery Minda Almodovar MD [address] [place] [address] 03/09/2023 Surgery Surgery Minda Almodovar MD [address] [place] [address] LAPAROSCOPIC CHOLECYSTECTOMY 03/23/2023 Office Visit General Surgery Minda Almodovar MD [address] [place] [address] 04/06/2023 Hospital Encounter Endoscopy Huyen Marmolejo, DO [address] [place] [address] 04/06/2023 Surgery Endoscopy Huyen Marmolejo, DO [address] [place] [address] COLONOSCOPY FLEXIBLE PROXIMAL DIAGNOSTIC 04/21/2023 Office Visit Family Medicine Dav Hargrove MD [address] [place] [address] 04/22/2023 Imaging Radiology 08/27/2023 Office Visit Allergy & Immunology Yordan Jones MD [address] [place] [address] Pending Results Name Type Priority Associated Diagnoses Date /Time LIPASE Lab Routine Left lower quadrant abdominal pain 12/31/2022 2:53 PM EDT Scheduled Orders Name Type Priority Associated Diagnoses Orde r Schedule LIPASE Lab Routine Left lower quadrant abdominal pain Expected: 12/31/2022 (Approximate), Expires: 12/31/2023 CT ABD/PELVIS W WO IV CONTRAST AND W ORAL CONT Medical Imaging STAT Pelvic pain in female Left lower quadrant abdominal pain Expected: 12/31/2022, Expires: 01/31/2024 Scheduled Procedures Name Priority Associated Diagnoses Date/Ti [...] this encounter Medical Devices Implanted Type Area Eyeglass Lens Grinder Device Identifier Shelf Expiration Date Model / Serial / Lot Sureclip 16mm 235cm - [id number] Implanted:Qty: 2 on 12/10/2022 by Junior Us MD at ENDOSCOPY [facility] Stomach MICRO TECH ENDOSCOPY 10/13/2023 [id number] / / [id number] documented as of this encounter Results * (ABNORMAL) COMPREHENSIVE METABOLIC PANEL (12/31/2022 2:53 PM EDT) BUN 14 6 - 20 mg/dL 12/31/2022 [...] ORDERABL ES LABORATORY [place] 57-10 [address] [place] [address] documented in this encounter Visit Diagnoses Diagnosis Left lower quadrant abdominal pain- Primary Dysuria Diverticulitis of colon Diverticulitis of colon (without mention of hemorrhage) Pelvic pain in female Unspecified symptom associated with female genital organs Post concussion syndrome Postconcussion syndrome Gallbladder polyp Cholesterolosis of gallbladder Diarrhea, unspecified type History of Clostridioides difficile infection documented in this encounter Care Teams Test Specialist Relationship Specialty Start Date End Date Dav Hargrove MD [address] [place] [address] PCP - General Family Medicine 05/28/20 documented as of this encounter
--- OUTSIDE RECORDS SUMMARY | 2023-06-13 22:52 | External Medical Summary | Summary of Care ---
Author Name Unknown Organization [facility] Address [address] [facility] [place] [address] Phone [phone] Care Team Providers Care Linemarker Name Role Phone Dav Hargrove MD Primary Care Provider [phone] [phone] Reason for Visit * Reason Comments Outpatient Testing Encounter Details Date Type Department Care Team Description 12/31/2022 Laboratory Laboratory, [facility] [place] [address] [facility] 132 [place] [address] Left lower quadrant abdominal pain Allergies Active Allergy Reactions Severity Noted Date [...] taking differently: Daily(AM), Reported on 12/07/2022 Ipratropium [place] 0.03 % Nasal Solution (Atrovent) USE 2 [...] Office Visit Nephrology Bonnie Trevizo MD 200 [facility] [place] [address] 01/14/2023 Appointment Radiology 01/14/2023 Hospital Encounter [place] [facility] [place] [address] [place] [address] 01/14/2023 Surgery [place] [facility] [place] [address] [place] [address] ANESTHESIA FOR NON-INVASIVE IMAGING (MRI OR CT) 01/15/2023 Office Visit Neurology Sissy Ellis MD 200 [facility] [place] [address] 01/20/2023 Office Visit Gastroenterology Rama Rojas CRNP [address] [place] [address] 01/25/2023 Office Visit Orthopedics Ren Lyn DO [address] [place] [address] 02/11/2023 Office Visit Otolaryngology Idalia Lora PA-C [address] [place] [address] 03/09/2023 Hospital Encounter Surgery Minda Almodovar MD [address] [place] [address] 03/09/2023 Surgery Surgery Minda Almodovar MD [address] [place] [address] LAPAROSCOPIC CHOLECYSTECTOMY 03/23/2023 Office Visit General Surgery Minda Almodovar MD [address] [place] [address] 04/06/2023 Hospital Encounter Endoscopy Huyen Marmolejo, DO [address] [place] [address] 04/06/2023 Surgery Endoscopy Huyen Marmolejo, DO [address] [place] [address] COLONOSCOPY FLEXIBLE PROXIMAL DIAGNOSTIC 04/21/2023 Office Visit Family Medicine Dav Hargrove MD [address] [place] [address] 04/22/2023 Imaging Radiology 08/27/2023 Office Visit Allergy & Immunology Yordan Jones MD [address] [place] [address], [place] [address] Pending Results Name Type Priority Associated Diagnoses Date /Time COMPREHENSIVE METABOLIC PANEL Lab Routine Left lower quadrant abdominal pain 12/31/2022 2:53 PM EDT LIPASE Lab Routine Left lower quadrant abdominal pain 12/31/2022 2:53 PM EDT Scheduled Procedures Name Priority Associated Diagnoses Date/Ti ct ANESTHESIA FOR NON-INVASIVE IMAGING (MRI OR CT) [...] or Tdap) 11/14/2023 11/13/2013, 08/26/2005, 08/26/2005 GFR 11/25/2023 11/24/2022, 08/2022, 01/02/2022, Additional history exists COLONOSCOPY-EVERY 3 YRS AGES [...] this encounter Medical Devices Implanted Type Area Building Equipment Operator Device Identifier Shelf Expiration Date Model / Serial / Lot Sureclip 16mm 235cm - [id number] Implanted:Qty: 2 on 12/10/2022 by Junior Us MD at ENDOSCOPY [facility] Stomach MICRO TECH ENDOSCOPY 10/13/2023 [id number] / / [id number] documented as of this encounter Visit Diagnoses Diagnosis Left lower quadrant abdominal pain Post concussion syndrome Postconcussion syndrome Gallbladder polyp Cholesterolosis of gallbladder Diarrhea, unspecified type History of Clostridioides difficile infection documented in this encounter Care Teams Linemarker Relationship Specialty Start Date End Date Dav Hargrove MD [address] [place] [address] PCP - General Family Medicine 05/28/20 documented as of this encounter
--- OUTSIDE RECORDS SUMMARY | 2023-06-13 22:52 | External Medical Summary | Summary of Care ---
Author Name Unknown Organization [facility] Address [address] [facility] [place] [address] Phone [phone] Care Team Providers Care Clutch Mechanic Name Role Phone Dav Hargrove MD Primary Care Provider [phone] [phone] Reason for Referral * Evaluate & Treat - Unlimited Visits (Within 10 days (routine)) - Authorized Specialty Diagnoses / Procedures Referred By Contac t Referred To Contact PRINTED CIRCUIT BOARD PANELS DEVELOPER - Urogynecology / Gynecology Urology Diagnoses Dysuria Dariana Fish CRNP [address] [place] [address] Referral ID Status Reason Start Date Expiration Date Visits Requested Visits Authorized [id number] Authorized Specialty Services Required 12/31/2022 999 999 [...] W ORAL CONT Dariana Fish CRNP [address] [place] [address] Referral ID Status Reason Start Date Expiration Date V isits Requested Visits Authorized [id number] Authorized 12/31/2022 999 999 Reason for Visit * Reason Comments Acute UTI Sx Encounter Details Date Type Department Care Team Description 12/31/2022 Office Visit Family [facility] [address] [place] [address] Dariana Fish CRNP [address] [place] [address] Left lower quadrant abdominal pain*; Dysuria; Diverticulitis [...] taking differently: Daily(AM), Reported on 12/07/2022 Ipratropium [place] 0.03 % Nasal Solution (Atrovent) USE 2 [...] before bedtime. With 300 mg tabs. Ipratropium [place] 0.03 % Nasal Solution (Atrovent) USE 2 [...] Exam Vitals reviewed. Exam conducted with a engineering faculty present. Constitutional: Appearance: She is not ill-appearing. [...] Office Visit Nephrology Bonnie Trevizo MD [address] [facility] [place] [address] 01/14/2023 Appointment Radiology 01/14/2023 Hospital Encounter [place] [facility] [place] [address] [place] [address] 01/14/2023 Surgery [facility] [place] [address] [place] [address] ANESTHESIA FOR NON-INVASIVE IMAGING (MRI OR CT) 01/15/2023 Office Visit Neurology Sissy Ellis MD [address] [place] [facility] [place] [address] 01/20/2023 Office Visit Gastroenterology Rama Rojas CRNP [address] [place] [address] 01/25/2023 Office Visit Orthopedics Ren Lyn DO [address] [place] [address] 02/03/2023 Office Visit Gynecology Urology Joaquin Johns MD [address] [place] [address] Nurse Cherelle Mattson [address] [place] [address] 02/11/2023 Office Visit Otolaryngology Idalia Lora PA-C [address] [place] [address] 03/09/2023 Hospital Encounter Surgery Minda Almodovar MD [address] [place] [address] 03/09/2023 Surgery Surgery Minda Almodovar MD [address] [place] [address] LAPAROSCOPIC CHOLECYSTECTOMY 03/23/2023 Office Visit General Surgery Minda Almodovar MD [address] [place] [address] 04/06/2023 Hospital Encounter Endoscopy Huyen Marmolejo, DO [address] [place], [place] [address] 04/06/2023 Surgery Endoscopy Huyen Marmolejo, DO [address] [place] [address] COLONOSCOPY FLEXIBLE PROXIMAL DIAGNOSTIC 04/21/2023 Office Visit Family Medicine Dav Hargrove MD [address] [place] [address] 04/22/2023 Imaging Radiology 08/27/2023 Office Visit Allergy & Immunology Yordan Jones MD 200 [facility] [place] [address] Pending Results Name Type Priority Associated Diagnoses [...] this encounter Medical Devices Implanted Type Area Youth Officer Device Identifier Shelf Expiration Date Model / Serial / Lot Sureclip 16mm 235cm - [id number] Implanted:Qty: 2 on 12/10/2022 by Junior Us MD at ENDOSCOPY [facility] Stomach MICRO TECH ENDOSCOPY 10/13/2023 [id number] / / [id number] documented as of this encounter Results * [...] S[facility]ARD LAB BLOOD ORDERABL ES LABORATORY [place] [facility] 57-[address] [place] [address] documented in this encounter Visit Diagnoses Diagnosis Left lower quadrant abdominal pain- Primary Dysuria Diverticulitis of colon Diverticulitis of colon (without mention of hemorrhage) Pelvic pain in female Unspecified symptom associated with female genital organs Post concussion syndrome Postconcussion syndrome Gallbladder polyp Cholesterolosis of gallbladder Diarrhea, unspecified type History of Clostridioides difficile infection documented in this encounter Care Teams Clutch Mechanic Relationship Specialty Start Date End Date Dav Hargrove MD [address] [place] [address] PCP - General Family Medicine 05/28/20 documented as of this encounter
--- OUTSIDE RECORDS SUMMARY | 2023-06-13 22:52 | External Medical Summary | Summary of Care ---
Author Name Unknown Organization [facility] Address [address] [facility] [place] [address] Phone [phone] Care Team Providers Care Executive Sales Assistant Name Role Phone Dav Hargrove MD Primary Care Provider [phone] [phone] Reason for Visit * Reason Comments Outpatient Testing Encounter Details Date Type Department Care Team Description 12/31/2022 Laboratory Laboratory, [facility] [place] [address] [facility] [address] [place] [address] Left lower quadrant abdominal pain Allergies [...] taking differently: Daily(AM), Reported on 12/07/2022 Ipratropium [place] 0.03 % Nasal Solution (Atrovent) USE 2 [...] Office Visit Nephrology Bonnie Trevizo MD 200 [place] [address] 01/14/2023 Appointment Radiology 01/14/2023 Hospital Encounter [place] [facility] [place] [address] [place] [address] 01/14/2023 Surgery Surgery [facility] [place] [address] [place] [address] ANESTHESIA FOR NON-INVASIVE IMAGING (MRI OR CT) 01/15/2023 Office Visit Neurology Sissy Ellis MD 200 [place] [place] [address] 01/20/2023 Office Visit Gastroenterology Rama Rojas CRNP [address] [place] [address] 01/25/2023 Office Visit Orthopedics Ren Lyn DO [address] [place] [address] 02/11/2023 Office Visit Otolaryngology Idalia Lora PA-C [address] [place] [address] 03/09/2023 Hospital Encounter Surgery Minda Almodovar MD [address] [place] [address] 03/09/2023 Surgery Surgery Minda Almodovar MD [address] [place], [place] [address] LAPAROSCOPIC CHOLECYSTECTOMY 03/23/2023 Office Visit General Surgery Minda Almodovar MD [address] [place] [address] 04/06/2023 Hospital Encounter Endoscopy Huyen Marmolejo, DO [address] [place] [address] 04/06/2023 Surgery Endoscopy Huyen Marmolejo, DO [address] [place] [address] COLONOSCOPY FLEXIBLE PROXIMAL DIAGNOSTIC 04/21/2023 Office Visit Family Medicine Dav Hargrove MD [address] [place] [address] 04/22/2023 Imaging Radiology 08/27/2023 Office Visit Allergy & Immunology Yordan Jones MD 200 [facility] [place] [address] Pending Results Name Type Priority Associated Diagnoses [...] this encounter Medical Devices Implanted Type Area Social Sciences Department Chair Device Identifier Shelf Expiration Date Model / Serial / Lot Sureclip 16mm 235cm - [id number] Implanted:Qty: 2 on 12/10/2022 by Junior Us MD at ENDOSCOPY [facility] Stomach MICRO TECH ENDOSCOPY 10/13/2023 [id number] / / [id number] documented as of this encounter Visit Diagnoses Diagnosis Left lower quadrant abdominal pain Post concussion syndrome Postconcussion syndrome Gallbladder polyp Cholesterolosis of gallbladder Diarrhea, unspecified type History of Clostridioides difficile infection documented in this encounter Care Teams Executive Sales Assistant Relationship Specialty Start Date End Date Dav Hargrove MD [address] [place] [address] PCP - General Family Medicine 05/28/20 documented as of this encounter
--- OUTSIDE RECORDS SUMMARY | 2023-06-13 22:52 | External Medical Summary | Summary of Care ---
Author Name Unknown Organization [facility] Address [address] [facility] [place] [address] Phone [phone] Care Team Providers Care Electron Beam Operator Name Role Phone Dav Hargrove MD Primary Care Provider [phone] [phone] Reason for Referral * Evaluate & Treat - Unlimited Visits (Within 10 days (routine)) - Authorized Specialty Diagnoses / Procedures Referred By Contac t Referred To Contact ECONOMIC ANALYST - Urogynecology / Gynecology Urology Diagnoses Dysuria Dariana Fish CRNP [address] [place] [address] Referral ID Status Reason Start Date Expiration Date Visits Requested Visits Authorized [id number] Authorized Specialty Services Required 12/31/2022 999 999 [...] W ORAL CONT Dariana Fish CRNP [address] [place] [address] Referral ID Status Reason Start Date Expiration Date V isits Requested Visits Authorized [id number] Authorized 12/31/2022 999 999 Reason for Visit * Reason Comments Acute UTI Sx Encounter Details Date Type Department Care Team Description 12/31/2022 Office Visit Family [facility] [address] [place] [address] Dariana Fish CRNP [address] [place] [address] Left lower quadrant abdominal pain*; Dysuria; Diverticulitis [...] taking differently: Daily(AM), Reported on 12/07/2022 Ipratropium [place] 0.03 % Nasal Solution (Atrovent) USE 2 [...] ago and also received a dose of rocephin. She reports that symptoms were reduced but never went away. Symptomsworse now. Burning with urination. Not able to [...] She used to see urology but has notsince 2019. She also complains of left-sided abdominal [...] before bedtime. With 300 mg tabs. Ipratropium [place] 0.03 % Nasal Solution (Atrovent) USE 2 [...] Exam Vitals reviewed. Exam conducted with a test carrier present. Constitutional: Appearance: She is not ill-appearing. [...] Nephrology Bonnie Trevizo MD [address] [place] [address] 01/14/2023 Appointment Radiology 01/14/2023 Hospital En[place] [facility] [place] [address] [place], [place] [address] 01/14/2023 Surgery [place] [facility] [place] [address] [place] [address] ANESTHESIA FOR NON-INVASIVE IMAGING (MRI OR CT) 01/15/2023 Office Visit Neurology Sissy Ellis MD [address] [place] [address] 01/20/2023 Office Visit Gastroenterology Rama Rojas CRNP [address] [place] [address] 01/25/2023 Office Visit Orthopedics Ren Lyn, DO [address] [place] [address] 02/03/2023 Office Visit Gynecology Urology Joaquin Johns MD [address] [place] [address] Nurse Cherelle Mattson [address] [place] [address] 02/11/2023 Office Visit Otolaryngology Idalia Lora PA-C [address] [place] [address] 03/09/2023 Hospital Encounter Surgery Minda Almodovar MD [address] [place] [address] 03/09/2023 Surgery Surgery Minda Almodovar MD [address] [place] [address] LAPAROSCOPIC CHOLECYSTECTOMY 03/23/2023 Office Visit General Surgery Minda Almodovar MD [address] [place] [address] 04/06/2023 Hospital Encounter Endoscopy Huyen Marmolejo, DO [address] [place] [address] 04/06/2023 Surgery Endoscopy Huyen Marmolejo, DO [address] [place] [address] COLONOSCOPY FLEXIBLE PROXIMAL DIAGNOSTIC 04/21/2023 Office Visit Family Medicine Dav Hargrove MD [address] [place] [address] 04/22/2023 Imaging Radiology 08/27/2023 Office Visit Allergy & Immunology Yordan Jones MD [address] [place] [address] Pending Results Name Type Priority Associated Diagnoses [...] this encounter Medical Devices Implanted Type Area Transport Conductor Device Identifier Shelf Expiration Date Model / Serial / Lot Sureclip 16mm 235cm - [id number] Implanted:Qty: 2 on 12/10/2022 by Junior Us MD at ENDOSCOPY [facility] Stomach MICRO TECH ENDOSCOPY 10/13/2023 [id number] / / [id number] documented as of this encounter Results * [...] ORDERABL ES LABORATORY [place] 57-10 [address] [place] [address] documented in this encounter Visit Diagnoses Diagnosis Left lower quadrant abdominal pain- Primary Dysuria Diverticulitis of colon Diverticulitis of colon (without mention of hemorrhage) Pelvic pain in female Unspecified symptom associated with female genital organs Post concussion syndrome Postconcussion syndrome Gallbladder polyp Cholesterolosis of gallbladder Diarrhea, unspecified type History of Clostridioides difficile infection documented in this encounter Care Teams Electron Beam Operator Relationship Specialty Start Date End Date Dav Hargrove MD [address] [place] [address] PCP - General Family Medicine 05/28/20 documented as of this encounter
--- OUTSIDE RECORDS SUMMARY | 2023-06-13 22:52 | External Medical Summary | Summary of Care ---
Author Name Unknown Organization [facility] Address 100 [facility] [place] [address] Phone [phone] Care Team Providers Care Frankfurter Inspector Name Role Phone Dav Hargrove MD Primary Care Provider [phone] [phone] Reason for Referral * Evaluate & Treat - Unlimited Visits (Within 10 days (routine)) - Authorized Specialty Diagnoses / Procedures Referred By Contac t Referred To Contact POWER REGULATOR - Urogynecology / Gynecology Urology Diagnoses Dysuria Dariana Fish CRNP [address] [place] [address] Referral ID Status Reason Start Date Expiration Date Visits Requested Visits Authorized [id number] Authorized Specialty Services Required 12/31/2022 999 999 [...] W ORAL CONT Dariana Fish CRNP [address] [place] [address] Referral ID Status Reason Start Date Expiration Date V isits Requested Visits Authorized [id number] Authorized 12/31/2022 999 999 Reason for Visit * Reason Comments Acute UTI Sx Encounter Details Date Type Department Care Team Description 12/31/2022 Office Visit Family [facility] [address] [place] [address] Dariana Fish CRNP [address] [place] [address] Left lower quadrant abdominal pain*; Dysuria; Diverticulitis [...] taking differently: Daily(AM), Reported on 12/07/2022 Ipratropium [place] 0.03 % Nasal Solution (Atrovent) USE 2 [...] before bedtime. With 300 mg tabs. Ipratropium [place] 0.03 % Nasal Solution (Atrovent) USE 2 [...] Exam Vitals reviewed. Exam conducted with a electric freight car operator present. Constitutional: Appearance: She is not ill-appearing. [...] Nephrology Bonnie Trevizo MD [address] [place] [address] 01/14/2023 Appointment Radiology 01/14/2023 Hospital Encounter Surgery [facility], In And Out Surgery [address] [place], [place] [address] 01/14/2023 Surgery Surgery [facility], In And Out Surgery [address] [place] [address] ANESTHESIA FOR NON-INVASIVE IMAGING (MRI OR CT) 01/15/2023 Office Visit Neurology Sissy Ellis MD [address] [place] [address] 01/20/2023 Office Visit Gastroenterology Rama Rojas CRNP [address] [place] [address] 01/25/2023 Office Visit Orthopedics Ren Lyn, DO [address] [place] [address] 02/03/2023 Office Visit Gynecology Urology Joaquin Johns MD [address] [place] [address] Nurse Cherelle Mattson [address] [place] [address] 02/11/2023 Office Visit Otolaryngology Idalia Lora PA-C [address] [place] [address] 03/09/2023 Hospital Encounter Surgery Minda Almodovar MD [address] [place] [address] 03/09/2023 Surgery Surgery Minda Almodovar MD [address] [place] [address] LAPAROSCOPIC CHOLECYSTECTOMY 03/23/2023 Office Visit General Surgery Minda Almodovar MD [address] [place] [address] 04/06/2023 Hospital Encounter Endoscopy Huyen Marmolejo, DO [address] [place] [address] 04/06/2023 Surgery Endoscopy Huyen Marmolejo, DO [address] [place] [address] COLONOSCOPY FLEXIBLE PROXIMAL DIAGNOSTIC 04/21/2023 Office Visit Family Medicine Dav Hargrove MD [address] [place] [address] 04/22/2023 Imaging Radiology 08/27/2023 Office Visit Allergy & Immunology Yordan Jones MD [address] [place] [id number] Pending Results Name Type Priority Associated Diagnoses [...] this encounter Medical Devices Implanted Type Area Die Storage Clerk Device Identifier Shelf Expiration Date Model / Serial / Lot Sureclip 16mm 235cm - [id number] Implanted:Qty: 2 on 12/10/2022 by Junior Us MD at ENDOSCOPY [facility] Stomach MICRO TECH ENDOSCOPY 10/13/2023 [id number] / / [id number] documented as of this encounter Results * (ABNORMAL) COMPREHENSIVE METABOLIC PANEL (12/31/2022 2:53 PM EDT) BUN 14 6 - 20 mg/dL 12/31/2022 3:52 PM EDT [facility] [place] [facility]10 Creatinine 1.4(H) 0.5 - 1.0 mg/dL 12/31/2022 3:52 PM EDT [facility] [place] [facility]10 Estimated Glomerular Filtration Rate 38(L) >=60 mL/min 12/31/2022 3:52 PM EDT [facility] [place] 57-10 Comment:eGFR is calculated b ased on [...] ORDERABL ES [facility] [place] [facility]-10 132 [facility] [place] [address] documented in this encounter Visit Diagnoses Diagnosis Left lower quadrant abdominal pain- Primary Dysuria Diverticulitis of colon Diverticulitis of colon (without mention of hemorrhage) Pelvic pain in female Unspecified symptom associated with female genital organs Post concussion syndrome Postconcussion syndrome Gallbladder polyp Cholesterolosis of gallbladder Diarrhea, unspecified type History of Clostridioides difficile infection documented in this encounter Care Teams Frankfurter Inspector Relationship Specialty Start Date End Date Dav Hargrove MD [address] [place] [address] PCP - General Family Medicine 05/28/20 documented as of this encounter
--- OUTSIDE RECORDS SUMMARY | 2023-06-13 22:52 | External Medical Summary | Summary of Care ---
Author Name Unknown Organization [facility] Address 100 [facility] [place] [address] Phone [phone] Care Team Providers Care Director Wholesale Name Role Phone Dav Hargrove MD Primary Care Provider [phone] [phone] Reason for Referral * Evaluate & Treat - Unlimited Visits (Within 10 days (routine)) - Authorized Specialty Diagnoses / Procedures Referred By Contac t Referred To Contact ENERGY OPERATIONS VICE PRESIDENT - Urogynecology / Gynecology Urology Diagnoses Dysuria Dariana Fish CRNP [address] [place] [address] Referral ID Status Reason Start Date Expiration Date Visits Requested Visits Authorized [id number] Authorized Specialty Services Required 12/31/2022 999 999 [...] W ORAL CONT Dariana Fish CRNP [address] [place] [address] Referral ID Status Reason Start Date Expiration Date V isits Requested Visits Authorized [id number] Authorized 12/31/2022 999 999 Reason for Visit * Reason Comments Acute UTI Sx Encounter Details Date Type Department Care Team Description 12/31/2022 Office Visit Family [facility] [address] [place] [address] Dariana Fish CRNP [address] [place] [address] Left lower quadrant abdominal pain*; Dysuria; Diverticulitis [...] taking differently: Daily(AM), Reported on 12/07/2022 Ipratropium [place] 0.03 % Nasal Solution (Atrovent) USE 2 [...] for a UTI 12 days ago and reports that symptoms were reduced but never went away. Symptoms worse now. Burning with urination. Not able to go more than a little bit at a time -- barely gave enough for just culture today at lab sowe do not have a UA for review. Her urine culture was positive for E. Coli. Feels like she can't emp ty bladder. She states she does not have interstitial cystitis -- disagrees with prior diagnosis ofthis. She used to see urology but has [...] c diff infection. Took full course of macrobid. Started diarrhea 3 days ago. "Sporadic" and not like prior c diff infection. Outpatient Medications [...] before bedtime. With 300 mg tabs. Ipratropium [place] 0.03 % Nasal Solution (Atrovent) USE 2 [...] Exam Vitals reviewed. Exam conducted with a endocrinology nurse present. Constitutional: Appearance: She is not ill-appearing. [...] noted on exam -- ? Prolapse v infection Denies any vaginal complaints Awaiting UA [...] Office Visit Nephrology Bonnie Trevizo MD 200 [facility] [place] [address] 01/14/2023 Appointment Radiology 01/14/2023 Hospital Encounter Surgery [facility], In And Out Surgery [address] [place] [address] 01/14/2023 Surgery Surgery [facility], In And Out Surgery [address] [place] [address] ANESTHESIA FOR NON-INVASIVE IMAGING (MRI OR CT) 01/15/2023 Office Visit Neurology Sissy Ellis MD 200 [facility] [place] [address] 01/20/2023 Office Visit Gastroenterology Rama Rojas CRNP [address] [place] [address] 01/25/2023 Office Visit Orthopedics Ren Lyn DO [address] [place] [address] 02/11/2023 Office Visit Otolaryngology Idalia Loar PA-C [address] [place] [address] 03/09/2023 Hospital Encounter Surgery Minda Almodovar MD [address] [place] [address] 03/09/2023 Surgery Surgery Minda Almodovar MD [address] [place] [address] LAPAROSCOPIC CHOLECYSTECTOMY 03/23/2023 Office Visit General Surgery Minda Almodovar MD [address] [place] [address] 04/06/2023 Hospital Encounter Endoscopy Huyen Marmolejo, DO [address] [place] [address] 04/06/2023 Surgery Endoscopy Huyen Marmolejo, DO [address] [place] [address] COLONOSCOPY FLEXIBLE PROXIMAL DIAGNOSTIC 04/21/2023 Office Visit Family Medicine Dav Hargrove MD [address] [place] [address] 04/22/2023 Imaging Radiology 08/27/2023 Office Visit Allergy & Immunology Yordan Jones MD [address] [place] [address], [place] [address] Pending Results Name Type Priority Associated Diagnoses Date /Time COMPREHENSIVE METABOLIC PANEL Lab Routine Left lower quadrant abdominal pain 12/31/2022 2:53 PM EDT LIPASE Lab Routine Left lower quadrant abdominal pain 12/31/2022 2:53 PM EDT Scheduled Orders Name Type Priority Associated Diagnoses Orde r Schedule COMPREHENSIVE METABOLIC PANEL Lab Routine Left lower quadrant abdominal pain Expected: 12/31/2022 (Approximate), Expires: 12/31/2023 LIPASE Lab Routine Left lower quadrant abdominal [...] this encounter Medical Devices Implanted Type Area General Merchandise Manager Device Identifier Shelf Expiration Date Model / Serial / Lot Sureclip 16mm 235cm - [id number] Implanted:Qty: 2 on 12/10/2022 by Junior Us MD at ENDOSCOPY [facility] Stomach MICRO TECH ENDOSCOPY 10/13/2023 [id number] / / [id number] documented as of this encounter Visit Diagnoses Diagnosis Left lower quadrant abdominal pain- Primary Dysuria Diverticulitis of colon Diverticulitis of colon (without mention of hemorrhage) Pelvic pain in female Unspecified symptom associated with female genital organs Post concussion syndrome Postconcussion syndrome Gallbladder polyp Cholesterolosis of gallbladder Diarrhea, unspecified type History of Clostridioides difficile infection documented in this encounter Care Teams Director Wholesale Relationship Specialty Start Date End Date Dav Hargrove MD [address] [place] [address] PCP - General Family Medicine 05/28/20 documented as of this encounter
--- OUTSIDE RECORDS SUMMARY | 2023-06-13 22:52 | External Medical Summary | Summary of Care ---
Author Name Unknown Organization [facility] Address 100 [facility] [place] [address] Phone [phone] Care Team Providers Care Glassblower Name Role Phone Dav Hargrove MD Primary Care Provider [phone] Reason for Referral * Evaluate & Treat - Unlimited Visits (Within 10 days (routine)) - Authorized Specialty Diagnoses / Procedures Referred By Contac t Referred To Contact INTERNET MARKETING EXECUTIVE - Urogynecology / Gynecology Urology Diagnoses Dysuria Dariana Fish CRNP [address] [place] [address] Referral ID Status Reason Start Date Expiration Date Visits Requested Visits Authorized [id number] Authorized Specialty Services Required 12/31/2022 999 999 [...] W ORAL CONT Dariana Fish CRNP [address] [place] [address] Referral ID Status Reason Start Date Expiration Date V isits Requested Visits Authorized [id number] Authorized 12/31/2022 999 999 Reason for Visit * Reason Comments Acute UTI Sx Encounter Details Date Type Department Care Team Description 12/31/2022 Office Visit Family [facility] [address] [place] [address] Dariana Fish CRNP [address] [place] [address] Left lower quadrant abdominal pain*; Dysuria; Diverticulitis [...] taking differently: Daily(AM), Reported on 12/07/2022 Ipratropium [place] 0.03 % Nasal Solution (Atrovent) USE 2 [...] before bedtime. With 300 mg tabs. Ipratropium [place] 0.03 % Nasal Solution (Atrovent) USE 2 [...] Exam Vitals reviewed. Exam conducted with a char conveyor tender cellar present. Constitutional: Appearance: She is not ill-appearing. [...] in office Urethral swelling noted on exam Denies any vaginal complaints Awaiting UA results [...] Office Visit Nephrology Bonnie Trevizo MD 200 [facility] [place] [address] 01/14/2023 Appointment Radiology 01/14/2023 Hospital Encounter Surgery [facility], In And Out Surgery [address] [place] [address] 01/14/2023 Surgery Surgery [facility], In And Out Surgery [address] [place] [address] ANESTHESIA FOR NON-INVASIVE IMAGING (MRI OR CT) 01/15/2023 Office Visit Neurology Sissy Ellis MD 200 [facility] [place] [address] 01/20/2023 Office Visit Gastroenterology Rama Rojas CRNP [address] [place] [address] 01/25/2023 Office Visit Orthopedics Ren Lyn DO [address] [place] [address] 02/11/2023 Office Visit Otolaryngology Idalia Lora PA-C [address] [place] [address] 03/09/2023 Hospital Encounter Surgery Minda Almodovar MD [address] [place] [address] 03/09/2023 Surgery Surgery Minda Almodovar MD [address] [place] [address] LAPAROSCOPIC CHOLECYSTECTOMY 03/23/2023 Office Visit General Surgery Minda Almodovar MD [address] [place] [address] 04/06/2023 Hospital Encounter Endoscopy Huyen Marmolejo, DO [address] [place] [address] 04/06/2023 Surgery Endoscopy Huyen Marmolejo, DO [address] [place] [address] COLONOSCOPY FLEXIBLE PROXIMAL DIAGNOSTIC 04/21/2023 Office Visit Family Medicine Dav Hargrove MD [address] [place] [address] 04/22/2023 Imaging Radiology 08/27/2023 Office Visit Allergy & Immunology Yordan Jones MD [address] [place] [address], [place] [address] Pending Results Name Type Priority Associated Diagnoses [...] this encounter Medical Devices Implanted Type Area Loan Processor Device Identifier Shelf Expiration Date Model / Serial / Lot Sureclip 16mm 235cm - [id number] Implanted:Qty: 2 on 12/10/2022 by Junior Us MD at ENDOSCOPY [facility] Stomach MICRO TECH ENDOSCOPY 10/13/2023 [id number] / / [id number] documented as of this encounter Visit Diagnoses Diagnosis Left lower quadrant abdominal pain- Primary Dysuria Diverticulitis of colon Diverticulitis of colon (without mention of hemorrhage) Pelvic pain in female Unspecified symptom associated with female genital organs Post concussion syndrome Postconcussion syndrome Gallbladder polyp Cholesterolosis of gallbladder Diarrhea, unspecified type History of Clostridioides difficile infection documented in this encounter Care Teams Glassblower Relationship Specialty Start Date End Date Dav Hargrove MD [address] [place] [address] PCP - General Family Medicine 05/28/20 documented as of this encounter
--- OUTSIDE RECORDS SUMMARY | 2023-06-13 22:53 | External Medical Summary | Summary of Care ---
Author Name Unknown Organization [facility] Address [address] [facility] [place] [address] Phone [phone] Care Team Providers Care Wheel Truing Machine Tender Name Role Phone Dav Hargrove MD Primary Care Provider [phone] [phone] Encounter Details Date Type Department Care Team Description 12/23/2022 Telemedicine Podiatry [facility] [address] [facility] [place] [address] Nuha Dsouza, DPM [address] [facility] [place] [id number] Right foot pain*; Peroneal tendinitis of right lower extremity Allergies Active Allergy Reactions Severity Noted Date [...] as of this encounter (statuses as of 12/23/2022) Medications Medication Sig Dispensed Refills Start Date [...] 08/06/2022 Active Pravastatin Sodium 80 MG Oral TabletIndications: [...] taking differently: Daily(AM), Reported on 12/07/2022 Ipratropium [place] 0.03 % Nasal Solution (Atrovent) USE 2 [...] 11/05/2022 Active Cefpodoxime Proxetil 200 MG Oral TabletIndications: Dysuria Take 1 Tablet by mouth in the morning and 1 Tablet in the evening. 14 Tablet 0 11/10/2022 Active Nitrofurantoin Monohyd Macro 100 MG Oral Capsule (Macrobid)Indicati ons:Dysuria Take 1 Capsule by mouth in the morning and 1 Capsule before bedtime. Do all this for 10 days. With food until gone. 20 Capsule 0 12/19/2022 12/29/2022 Active documented as of this encounter (statuses as of 12/23/2022) Active Problems Problem Noted Date Moderate mitral [...] as of this encounter (statuses as of 12/23/2022) Resolved Problems Problem Noted Date Resolved Date [...] as of this encounter (statuses as of 12/23/2022) Immunizations Name Administration Dates Next Due COVID-19 [...] of this encounter Progress Notes * Nuha Dsouza DPM - 12/23/2022 11:00 AM EDT After connecting to the patient via telephone, the patient was identified by name. Patient was theninformed that this was a telephone call only visit. The patient agreed to participate. Visit Disposition: Requires face to face/telemedicine follow-up (this telephonic visit is not billable) Total call duration was 2 minutes. I spoke with Mary and her Edward. I had performed a superficial injection to the right lateral heel, sural nerve about one week ago. She reports no relief. We had reviewed option of peroneal tendon sheath to this area wit sports med/US. She is willing to try this. Today, she reports some plantar heel pain. I recommended a return to me if injection does not improve all symptoms. documented in this encounter Plan of Treatment Upcoming Encounters Date Type Specialty Care Team Description 01/12/2023 Office Visit Nephrology Bonnie Trevizo MD 200 [facility] [place] [address] 01/14/2023 Appointment Radiology 01/14/2023 Hospital Encounter Surgery [facility], In And Out Surgery [address] [place] [address] 01/14/2023 Surgery Surgery [facility], In And Out Surgery [address] [place] [address] ANESTHESIA FOR NON-INVASIVE IMAGING (MRI OR CT) 01/20/2023 Office Visit Gastroenterology Rama Rojas CRNP [address] [place] [address] 02/11/2023 Office Visit Otolaryngology Idalia Lora PA-C [address] [place] [address] 03/09/2023 Hospital Encounter Surgery Minda Almodovar MD [address] [place] [address] 03/09/2023 Surgery Surgery Minda Almodovar MD [address] [place] [address] LAPAROSCOPIC CHOLECYSTECTOMY 03/15/2023 Hospital Encounter Endoscopy Shobha Rodriguez MD [address] [place] [address] 03/15/2023 Surgery Endoscopy Shobha Rodriguez MD [address] [place] [address] COLONOSCOPY FLEXIBLE PROXIMAL DIAGNOSTIC 03/23/2023 Office Visit General Surgery Minda Almodovar MD [address] [place] [address] 04/21/2023 Office Visit Family Medicine Dav Hargrove MD [address] [place] [address] 04/22/2023 Imaging Radiology 05/07/2023 Office Visit Neurology Sissy Ellis MD [address] [facility] [place] [address] 08/27/2023 Office Visit Allergy & Immunology Yordan Jones MD [address] [facility] [place], [place] [address] Scheduled Procedures Name Priority Associated Diagnoses Date/Ti me ANESTHESIA FOR NON-INVASIVE IMAGING (MRI OR CT) Post concussion syndrome 01/14/2023 7:30 AM EDT LAPAROSCOPIC CHOLECYSTECTOMY Gallbladder polyp 03/09/2023 8:00 AM EST COLONOSCOPY FLEXIBLE PROXIMAL DIAGNOSTIC Diarrhea, unspecified type History of Clostridioides difficile infection 03/15/2023 11:15 AM EST COLONOSCOPY FLEXIBLE PROXIMAL DIAGNOSTIC Recall [...] this encounter Medical Devices Implanted Type Area Transportation Worker Device Identifier Shelf Expiration Date Model / Serial / Lot Sureclip 16mm 235cm - [id number] Implanted:Qty: 2 on 12/10/2022 by Junior Us MD at ENDOSCOPY [facility] Stomach MICRO TECH ENDOSCOPY 10/13/2023 [id number] / / [id number] documented as of this encounter Visit Diagnoses Diagnosis Right foot pain- Primary Pain in limb Peroneal tendinitis of right lower extremity Other enthesopathy of ankle and tarsus Post concussion syndrome Postconcussion syndrome Gallbladder polyp Cholesterolosis of gallbladder Diarrhea, unspecified type History of Clostridioides difficile infection documented in this encounter Care Teams Wheel Truing Machine Tender Relationship Specialty Start Date End Date Dav Hargrove MD [address] [place] [address] PCP - General Family Medicine 05/28/20 documented as of this encounter
--- OUTSIDE RECORDS SUMMARY | 2023-06-13 22:53 | External Medical Summary ---
Author Name Unknown Address Unknown Organization [id number]:LABORATORY [facility] - [address] [place] [address] Laboratory Report Ordering Provider Test Date Status WEN CATALAN 12/31/2022 13:24:59 Final Observation Date Value Abnormality Reference (Units) Status Bacteria identified in Specimen by Culture 12/31/2022 13:24:59 No significant growth Final Test: Culture, Urine, Quanti tative
Specimen Source: Urine, Clean Catch
Specimen Type: Urine
Specimen Date: 12/31/2022 1:24 PM
Result Date: 01/01/2023 11:07 AM
Result Status: Final result
Resulting Lab: LABORATORY [facility]
[address]
[place] [address]

CULTURE

No significant growth

null Performing Location LABORATORY [facility] - [address] [facility] [address]
--- OUTSIDE RECORDS SUMMARY | 2023-06-13 22:53 | External Medical Summary ---
Author Name Unknown Address Unknown Organization [id number][facility] [address] [place] [address] Laboratory Report Ordering Provider Test Date Status AALIYAH QUARLES 12/31/2022 13:17:36 Final Observation Date Value Abnormality Reference (Units ) Status WBC, Total 12/31/2022 13:17:36 9.98 4.00-10.8 0 (K/uL) Final RBC 12/31/2022 13:17:36 4.48 3.85-5.15 (M/uL) Final Hemoglobin 12/31/2022 13:17:36 12.8 12.0-15.3 (g/dL) Final HCT 12/31/2022 13:17:36 39.8 36.0-45.2 (%) Final MCV 12/31/2022 13:17:36 88.8 81.5-97.5 (fL) Final MCH 12/31/2022 13:17:36 28.6 27.0-34.0 (pg) Final MCHC 12/31/2022 13:17:36 32.2 32.0-36.0 (g/dL) Final RDW 12/31/2022 13:17:36 13.9 11.5-15.5 (%) Final Platelets 12/31/2022 13:17:36 261 140-400 (K /uL) Final MPV 12/31/2022 13:17:36 8.8 6.6-11.1 ( fL) Final Performing Location LABORATORY [place] [address] - [address] [place] [address]
--- OUTSIDE RECORDS SUMMARY | 2023-06-13 22:53 | External Medical Summary | Summary of Care ---
Author Name Unknown Organization [facility] Address [address] [facility] [address] Phone [phone] Care Team Providers Care Buyer Renter Name Role Phone Dav Hargrove MD Primary Care Provider [phone] Encounter Details Date Type Department Care Team Description 12/16/2022 Office Visit Podiatry [facility] [address] [facility] [place] [address] Aida Winkler, DPM [address] [facility] [place] [id number] Right foot pain*; Sural neuritis, right; History of foot surgery; Lower leg edema Allergies Active Allergy Reactions Severity Noted Date [...] as of this encounter (statuses as of 12/22/2022) Medications Medication Sig Dispensed Refills Start Date [...] taking differently: Daily(AM), Reported on 12/07/2022 Ipratropium [place] 0.03 % Nasal Solution (Atrovent) USE 2 [...] the evening. 14 Tablet 0 11/10/2022 Active Hospital, Clinic, or Other Facility Administered Medication Ordered Dose Route Frequency Start Date End Date Status bupivacaine (Sensorcaine) 0.5 % inj 2.5 mgIndications:Right foot pain,Sural neuritis, right 2.5 mg IJ ONCE 12/17/2022 3 Ended dexamethasone sodium phosphate 20 MG/5ML inj 2 mgIndications:Right foot pain,Sural neuritis, right 2 mg IJ ONCE 12/17/2022 3 Ended documented as of this encounter (statuses as of 12/22/2022) Active Problems Problem Noted Date Moderate mitral [...] as of this encounter (statuses as of 12/22/2022) Resolved Problems Problem Noted Date Resolved Date [...] as of this encounter (statuses as of 12/22/2022) Immunizations Name Administration Dates Next Due COVID-19 mRNA, LNP-s, No Pre serve, 2-Dose Series (Downtyme) 07/02/2020,06/06/2020 Pneumococcal Conjugate Vacc, 13 Valent (Prevnar) [...] as of this encounter Progress Notes * Aida Winkler, MAHENDRA - 12/16/2022 10:00 AM EDT Podiatry Established Note [facility] Name: Mary Dyer : 1945 Date: 12/16/2022 REASON FOR VISIT: right foot pain SUBJECTIVE: This patient is a 77 year old female who presents today with complaints of right foot pain. She is accompanied by her today. She reports pain to the lateral foot and tingling typesensation to the heel for the past couple months. She did have an excision of an os peroneum with peroneus longus repair on 11/08/2019. She had persistent symptoms following this procedure. After further imaging and treatment, I recommended she consider a second opinion in 2020. She then saw my colleague for ingrown toenails that same year. Today, she reports no additional treatment was tried and her pain seemed to improve until this Summer. She also notes swelling of the right side and mentionsthe left side as well. She is taking gabapentin which was increased. She reports dealing with otherhealth issues including a right shoulder issue. Past Medical History: Diagnosis Date Acid reflux [...] 04/29/2001 Metastatic cancer to axillary lymph nodes ([facility]) 02/21/2013 Moderate mitral regurgitation 07/20/2022 Obesity, Class [...] comment) headache REVIEW OF SYSTEMS: CONSTITUTIONAL: No fevers, sweats, or chills FOCUSED PODIATRIC EXAM: Vascular: Pedal pulses palpable [...] Minimal pain with motion of the right foot and ankle. Dermatological: Skin temperature, texture, and turgor are within normal limits. No open lesions. There is no erythema or ecchymosis noted. DIAGNOSTIC STUDIES: X-rays, right foot, 12/16/2022 Includes 3 WB views AP MO and Lateral. Narrowing and spurring of the first metatarsal phalangeal joint on all views. No evidence of acute fracture. ASSESSMENT: 1. Right foot pain 2. Sural neuritis, right 3. History of foot surgery 4. Lower leg edema PLAN: I personally reviewed right foot x-rays as above. Mary does report improvement despite somewhat prolonged pain after surgery. This just returned this Summer. I would prefer to hold off on aggressiveimaging for now. We discussed option of steroid injection of sural nerve vs possible US guided injection of peroneal tendon sheath. She prefers to try nerve injection today. I also asked she begin touse compression. Nurse to provide tubi relief pilot compression sleeves, but she may use compression socks or stockings. I reviewed all risks, benefits, alternatives, and complications to this procedure (injection right lateral foot at sural nerve) with the patient. Risks include but are not limited to: pain, bleeding,bruising, infection, atrophy or thinning of the soft tissue, an increase in blood glucose, allergicreaction, steroid flare, recurrence of condition, and possibility of no improvement in condition. Non OR time Out: Time out was initiated under direction and supervision of provider Aida Winkler DPM. Correct patient identity - Yes Correct side and site - Yes Procedure matches verbalized consent -Yes Correct patient position - Yes Availability of correct implants and any special equipment or special requirements - Yes Time out occurred prior to procedure start - Yes Prophylactic antibiotic timing confirmed - N/A Witness present & agrees with the time out process. The right lateral was prepped with alcohol. Injection was performed using a 25 gauge needle. Injection consisted of: 0.5mL of 4mg/ml dexamethasone sodium phosphate 0.5mL of 0.5% sensorcaine plain Injection was administered to the right lateral foot along sural nerve site. The patient tolerated the injection well. A dry dressing was applied over injection site. The patient was instructed to rest and limit very strenuous activity for 24 hours. Will plan on 1 week follow up phone call. May consider discussing this case with sports medicine for US injection. Aida Winkler DPM documented in this encounter Nursing Notes * Arnie Chatman LPN - 12/16/2022 10:12 AM EDT Pt presents with her , c/o pain in R foot x 'a couple months'. Located on the lateral side of right foot, radiated to back of heel, is 'sven'. Describes the feeling of 'a ball under' the front of R foot. documented in this encounter Miscellaneous Notes * Addendum Note - Aida Winkler DPM - 12/17/2022 7:41 AM EDTAddended by: AIDA WINKLER on: 12/17/2022 07:41 AM Modules accepted: Orders * Addendum Note - Arnie Chatman LPN - 12/16/2022 12:58 PM EDTAddended by: ARNIE CHATMAN on: 12/16/2022 12:58 PM Modules accepted: Orders documented in this encounter Plan of Treatment Upcoming Encounters Date Type Specialty Care Team Description 12/23/2022 Telemedicine Podiatry Aida Winkler DPM [address] [place] [address] 01/12/2023 [facility] [id number] 01/14/2023 Appointment Radiology 01/14/2023 Hospital Encounter Surgery [facility], In And Out Surgery [address] [place] [facility] [place] [place] [address] 01/14/2023 Surgery Surgery [facility], In And Out Surgery [address] [place] [facility] [place] [place] [address] ANESTHESIA FOR NON-INVASIVE IMAGING (MRI OR CT) 01/20/2023 Office Visit Gastroenterology Rama Rojas CRNP [address] [place] [address] 02/11/2023 Office Visit Otolaryngology Idalia Lora PA-C [address] [place] [address] 03/09/2023 Hospital Encounter Surgery Minda Almodovar MD [address] [place] [address] 03/15/2023 Hospital Encounter Endoscopy Shobha Rodriguez MD [address] [place] [address] 03/15/2023 Surgery Endoscopy Shobha Rodriguez MD [address] [place] [address] COLONOSCOPY FLEXIBLE PROXIMAL DIAGNOSTIC 03/23/2023 Office Visit General Surgery Minda Almodovar MD [address] [place] [address] 04/21/2023 Office Visit Family Medicine Dav Hargrove MD [address] [place] [address] 04/22/2023 Imaging Radiology 05/07/2023 Office Visit Neurology Sissy Ellis MD [address] [place] [address], [place] [address] 08/27/2023 Office Visit Allergy & Immunology Yordan Jones MD [address] [facility] [place] [address] Scheduled Procedures Name Priority Associated Diagnoses Date/Ti me ANESTHESIA FOR NON-INVASIVE IMAGING (MRI OR CT) Post concussion syndrome 01/14/2023 7:30 AM EDT LAPAROSCOPIC CHOLECYSTECTOMY Gallbladder polyp COLONOSCOPY FLEXIBLE PROXIMAL DIAGNOSTIC Diarrhea, unspecified type [...] this encounter Medical Devices Implanted Type Area Edge Roller Device Identifier Shelf Expiration Date Model / Serial / Lot Sureclip 16mm 235cm - [id number] Implanted:Qty: 2 on 12/10/2022 by Junior Us MD at ENDOSCOPY [facility] Stomach MICRO TECH ENDOSCOPY 10/13/2023 [id number] / / [id number] documented as of this encounter Procedures Procedure Name Priority Date/Time Associated Diagnosis Comments XR FOOT 3 OR MORE VIEWS Routine 12/16/2022 10:20 AM EDT Right foot pain documented in this encounter Results * XR FOOT 3 OR MORE VIEWS (12/16/2022 10:20 AM EDT) Anatomical Region Laterality Modality Foot, Lower Extremity Computed R adiography 12/16/2022 10:2 3 AM EDT Impressions 12/18/2022 12:03 PM EDT IMPRESSION: 1. No evidence of acute osseous injury. 2. 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 THIS DOCUMENT HAS BEEN ELECTRONICALLY SIGNED BY BRITANY PEREZ MD Narrative 12/18/2022 12:03 PM EDT PROCEDURE INFORMATION: Exam: XR Right Foot Exam date and time: 12/16/2022 10:23 AM Age: 77 years old Clinical indication: Pain in right foot; Additional info: Pain, jaky on lateral side TECHNIQUE: Imaging protocol: Radiologic exam of the right foot. Views: 3 or more views. COMPARISON: DX XR FOOT 3 OR MORE VIEWS 04/28/2019 1:21 PM FINDINGS: Bones/joints: Severe narrowing 1st metatarsophalangeal articulation. Subcortical foci of cystic change. Overall appearance stable. Mild hallux valgus deformity. Minimal enthesophyte plantar margin of the calcaneus at the site of attachment of the plantar aponeurosis. Multiple hammertoe deformities again identified. Soft tissues: Normal. Procedure Note Britany Perez MD - 12/18/2022 PROCEDURE INFORMATION: Exam: XR Right Foot Exam date and time: 12/16/2022 10:23 AM Age: 77 years old Clinical indication: Pain in right foot; Additional info: Pain, jaky onlateral side TECHNIQUE: Imaging protocol: Radiologic exam of the right foot. Views: 3 or more views. COMPARISON: DX XR FOOT 3 OR MORE VIEWS 04/28/2019 1:21 PM FINDINGS: Bones/joints: Severe narrowing 1st metatarsophalangeal articulation. Subcortical foci of cystic change. Overall appearance stable. Mild hallux valgus deformity. Minimal enthesophyte plantar margin of the calcaneus atthe site of attachment of the plantar aponeurosis. Multiple hammertoedeformities again identified. Soft tissues: Normal. IMPRESSION IMPRESSION: 1. No evidence of acute osseous injury. 2. Severe degenerative osteoarthritis 1st metatarsophalangealarticulation. THIS DOCUMENT HAS BEEN ELECTRONICALLY SIGNED BY BRITANY PEREZ MD Aida Winkler [facility] RAD[facility] (RAD GENER AL) documented in this encounter Visit Diagnoses Diagnosis Right foot pain- Primary Pain in limb Sural neuritis, right History of foot surgery Personal history of surgery to other organs Lower leg edema Edema Post concussion syndrome Postconcussion syndrome Diarrhea, unspecified type History of Clostridioides difficile infection documented in this encounter Administered Medications Inactive Administered Medications - up to 3 most recent administrations Medication Order MAR Action Action Date Dose Rate Site bupivacaine (Sensorcaine) 0.5 % inj 2.5 mg 2.5 mg, Injection, ONCE, On Demetrice 12/17/22 at 0815, For 1 dose Given 12/16/2022 10:22 AM EDT 2.5 mg Foot Right dexamethasone sodium phosphate 20 MG/5ML inj 2 mg 2 mg, Injection, ONCE, On Demetrice 12/17/22 at 0815, For 1 dose, Protect from Light Given 12/16/2022 10:21 AM EDT 2 mg Foot Right documented in this encounter Care Teams Buyer Renter Relationship Specialty Start Date End Date Dav Hargrove MD [address] [place] [address] PCP - General Family Medicine 05/28/20 documented as of this encounter
--- OUTSIDE RECORDS SUMMARY | 2023-06-13 22:53 | External Medical Summary ---
Author Name Unknown Address Unknown Organization [facility] [place] [address] [place] [address] Laboratory Report Ordering Provider Test Date Status WEN CATALAN 12/31/2022 14:53:05 Final Observation Date Value Abnormality Reference (Units ) Status BUN 12/31/2022 14:53:05 14 6-20 (mg/dL) Final Creatinine 12/31/2022 14:53:05 1.4 Above high normal 0.5-1.0 (mg/dL) Final Glomerular filtration rate/1.73 sq M.predicted [Volume Rate/Area] in Serum, Plasma or Blood by Creatinine-based formula (CKD-EPI) 12/31/2022 14:53:05 38 Below low normal >=60 (mL/min) Final eGFR is calculated based on the CKD-EPI 2020 equation SODIUM 12/31/2022 14:53:05 139 135-146 (m mol/L) Final Potassium 12/31/2022 14:53:05 4.4 3.5-5.1 (m mol/L) Final Cl 12/31/2022 14:53:05 101 98-107 (mm ol/L) Final CO2 12/31/2022 14:53:05 24 22-32 (mmo l/L) Final Anion gap 12/31/2022 14:53:05 14 7-15 (mmol /L) Final Glucose 12/31/2022 14:53:05 105 70-120 (mg /dL) Final Albumin 12/31/2022 14:53:05 4.8 3.8-5.0 (g /dL) Final AST (Aspartate aminotransferase) 12/31/2022 14:53:05 16 10-35 (U/L) Final Alk Phos 12/31/2022 14:53:05 87 35-130 (U/ L) Final Bilirubin, Total 12/31/2022 14:53:05 0.3 <=1 .2 (mg/dL) Final Calcium 12/31/2022 14:53:05 9.5 8.4-10.2 ( mg/dL) Final Protein 12/31/2022 14:53:05 7.0 6.0-8.3 (g /dL) Final ALT (Alanine aminotransferase) 12/31/2022 14:53:05 17 10-35 (U/L) Final Performing Location [facility] [address] [place] [address]
--- OUTSIDE RECORDS SUMMARY | 2023-06-13 22:53 | External Medical Summary | Summary of Care ---
Author Name Unknown Organization [facility] Address [address] [facility] [place] [address] Phone [phone] Care Team Providers Care Siding Applicator Name Role Phone Dav Hargrove MD Primary Care Provider [phone] Reason for Visit * Reason Onset Date Comments Appointment 12/22/2022 Encounter Details Date Type Department Care Team Description 12/22/2022 Telephone Family Practice [facility] [address] [place] [address] Dav Hargrove MD [address] [place] [address] Appointment Allergies Active Allergy Reactions Severity Noted Date [...] taking differently: Daily(AM), Reported on 12/07/2022 Ipratropium [place] 0.03 % Nasal Solution (Atrovent) USE 2 [...] gone. 20 Capsule 0 12/19/2022 12/29/2022 Active Hospital, Clinic, or Other Facility Administered Medication Ordered Dose Route Frequency Start Date End Date Status cefTRIAXone (Rocephin) inj 1 gIndications:Acute cystitis without hematuria 1 g IM ONCE 12/22/2022 Ended documented as of this encounter (statuses [...] encounter Miscellaneous Notes * Telephone Encounter - Anamaria Benitez - 12/23/2022 2:25 PM EDT Appt scheduled with * Telephone Encounter - Joaquin Gomez RN - 12/23/2022 2:22 PM EDT Scheduling: Please schedule patient for nurse clinic visit for Rocephin injection. Thank you. * Telephone Encounter - Dav Hargrove MD - 12/22/2022 5:14 PM EDT Ordered. * Telephone Encounter - Laly Brantley LPN - 12/22/2022 5:11 PM EDT Called pt, states she has improved however would like to cover with injection as symptoms have not completely resolved. Please order * Telephone Encounter - Dav Hargrove MD - 12/22/2022 2:11 PM EDT Urine culture showed two bacteria. She is on macrobid, and that covers one of them, however all of the antibiotics that cover both bacteria, she has allergies to. The only choice would be to give heran injection of Ceftriaxone, one dose. If symptoms have resolved, we don't need to do this. If we call and she is still symptomatic, routeback to me and I will order Ceftriaxone to be given at a nurse visit. Dr. hargrove documented in this encounter Plan of Treatment Upcoming Encounters Date Type Specialty Care Team Description 12/23/2022 Immunization/Injec tion Gemma Mattson, Nurse [facility] Thelma Katie [address] [place] [address] 01/12/2023 Office Visit Nephrology Bonnie Trevizo MD [address] [place] [address] 01/14/2023 Appointment Radiology 01/14/2023 Hospital Encounter Surgery [facility], In And Out Surgery [address] [place] [address] 01/14/2023 Surgery Surgery [facility], In And Out Surgery [address] [place] [address] ANESTHESIA FOR NON-INVASIVE IMAGING (MRI OR CT) 01/20/2023 Office Visit Gastroenterology Rama Rojas CRNP [address] [place] [address] 01/25/2023 Office Visit Orthopedics Ren Lyn DO [address] [place] [address] 02/11/2023 Office Visit Otolaryngology Idalia Lora PA-C [address] [place] [address] 03/09/2023 Hospital Encounter Surgery Minda Almodovar MD [address] [place] [address] 03/09/2023 Surgery Surgery Minda Almodovar MD [address] [place] [address] LAPAROSCOPIC CHOLECYSTECTOMY 03/15/2023 Hospital Encounter Endoscopy Shobha Rodriguez MD [address] [place] [address] 03/15/2023 Surgery Endoscopy Shobha Rodriguez MD [address] [place] [address] COLONOSCOPY FLEXIBLE PROXIMAL DIAGNOSTIC 03/23/2023 Office Visit General Surgery Minda Almodovar MD [address] [place] [address] 04/21/2023 Office Visit Family Medicine Dav Hargrove MD [address] [place] [address] 04/22/2023 Imaging Radiology 05/07/2023 Office Visit Neurology Sissy Ellis MD [address] [place] [address] 08/27/2023 Office Visit Allergy & Immunology Yordan Jones MD [address] [place] [address] Scheduled Procedures Name Priority Associated Diagnoses Date/Ti [...] this encounter Medical Devices Implanted Type Area Brass Buffer Device Identifier Shelf Expiration Date Model / Serial / Lot Sureclip 16mm 235cm - [id number] Implanted:Qty: 2 on 12/10/2022 by Junior Us MD at [facility]OSCOPY [facility] Stomach MICRO TECH ENDOSCOPY 10/13/2023 [id number] / / [id number] documented as of this encounter Visit Diagnoses Diagnosis Acute cystitis without hematuria- Primary Acute cystitis Post concussion syndrome Postconcussion syndrome Gallbladder polyp Cholesterolosis of gallbladder Diarrhea, unspecified type History of Clostridioides difficile infection documented in this encounter Care Teams Siding Applicator Relationship Specialty Start Date End Date Dav Hargrove MD [address] [facility] [place] [address] PCP - General Family Medicine 05/28/20 documented as of this encounter
--- OUTSIDE RECORDS SUMMARY | 2023-06-13 22:53 | External Medical Summary | Summary of Care ---
Author Name Unknown Organization [facility] Address [address] [facility] [place] [address] Phone [phone] Care Team Providers [employer] Name Role Phone Dav Hargrove MD Primary Care Provider [phone] Reason for Visit * Reason Comments Follow Up Return after us abdo men Encounter Details Date Type Department Care Team Description 12/22/2022 Office Visit General Surgery, [facility] [address] [place] [address] Minda Almodovar MD [address] [place] [address] Pre-op examination* Allergies Active Allergy Reactions Severity Noted Date [...] taking differently: Daily(AM), Reported on 12/07/2022 Ipratropium Call 0.03 % Nasal Solution (Atrovent) USE 2 [...] Progress Notes * Minda Almodovar MD - 12/22/2022 12:06 PM EDT Images from the original note were not included. Chief Complaint: Chief Complaint Patient presents with Follow Up Return after us abdomen History of Present Illness: Mary Dyer is [...] Return to referring physician. Junior Us MD Past Medical History Past Medical History: Diagnosis Date Acid reflux [...] Temporomandibular joint disorders, unspecified 07/14/2010 Past Surgical History Past Surgical History: Procedure Laterality Date ARTHROPLASTY KNEE TOTAL left BIOPSY OF BREAST, OPEN Left 05/23/2014 benign-nipple surgery BX LYMPH NODE DEEP AXIL 03/14/2013 03/14/2013 Left axillary lymph node dissection.dX: metastatic carcinoma seen in 16 & 21 examinated left lymph nodes Placement of right subclavian venous Port-A-Cath 03/14/[address] [facility] [employer] Yvette Kaur PA-C CERVICAL HEMILAMINECTOMY cage CHEMOTHERAPY 2012 left breast CA COLONOSCOPY W/ BIOPSY (RECTUM) 06/27/2009 await path & aspirate results, diverticulosis & Ext Hemmorrhoids COLONOSCOPY W/ LESION REMOVAL, SNARE 07/30/2006 repeat 5 yrs repeat in 5 years COLONOSCOPY, DIAGNOSTIC (RECTUM) 09/21/2014 adenomatous polyps, diverticulosis, repeat 5 yrs/COLONOSCOPY FLEXIBLE PROXIMAL DIAGNOSTIC performedby Bryn Christiansen MD at ENDOSCOPY [facility] COLONOSCOPY, DIAGNOSTIC (RECTUM) 09/13/2019 sigmoid diverticulosis/biopsies show adenomatous polyps/recall 2 years/COLONOSCOPY FLEXIBLE PROXIMAL DIAGNOSTIC performed by Whit Martínez MD at ENDOSCOPY [facility] COLONOSCOPY, DIAGNOSTIC (RECTUM) N/A 09/01/2022 benign adenomatous polyps, diverticulosis, repeat 3 yrs / COLONOSCOPY FLEXIBLE PROXIMAL DIAGNOSTIC performed by Walt Muniz MD at ENDOSCOPY [facility] CYSTOSCOPY 11/19/2008 with sounds CYSTOSCOPY 09/24/2006 EGD, FLEXIBLE, DIAGNOSTIC 04/08/09 done normal exam EGD, FLEXIBLE, DIAGNOSTIC 03/30/2012 UPPER GI ENDOSCOPY DIAGNOSTIC performed by Walt Muniz MD at ENDOSCOPY [facility] EGD, FLEXIBLE, DIAGNOSTIC 07/06/2017 KAT - normal results / [facility] EGD, FLEXIBLE, DIAGNOSTIC 08/30/2020 Normal scope / biopsies from your duodenum and stomach returned normal, showed reflux / ESOPHAGOGASTRODUODENOSCOPY (EGD), FLEXIBLE, TRANSORAL, DIAGNOSTIC performed by Whit Martínez MD at ENDOSCOPY [facility] EGD, W/ENDOSCOPIC US 12/10/2022 gastric polyp/sludge and polyp gallbladder/biopsies normal/ESOPHAGOGASTRODUODENOSCOPY (EGD), FLEXIBLE, TRANSORAL, ENDOSCOPIC ULTRASOUND performed by Junior Us MD at ENDOSCOPY [facility] EXPLORATION OF NIPPLE Left 05/23/2014 05/23/2014 NIPPLE EXPLORATION Dx no evidence of invasive carcinoma , proliferative fibrocystic changes Left performed by Minda Almodovar MD at OR [facility] INFORMATION Low back surgery INFORMATION 05/13/2008 neck [...] performed by Nuha Dsouza DPM at OR [facility] REVISE UPPER EYELID/EXCESS SKIN Bilateral 11/07/2014 [place] US GUIDED BREAST BIOPSY LEFT Left 01/03/2013 malignant Medications: Current Outpatient Medications Medication Sig Dispense [...] Tablet by mouth as needed for Gas. promethazine (PHENERGAN) 25 MG Tablet Take 1 [...] (Patient taking differently: daily.) 90 Tablet 3 Pilocarpine HCl 5 MG [...] Take by mouth 3 times a day. Vancomycin HCl 125 MG Oral Capsule (Vancocin) Take 1 Capsule by mouth in the morning. 90 Capsule 2 Pravastatin Sodium 80 MG Oral Tablet TAKE 1 TABLET BY MOUTH ONCE DAILY (Patient taking differently:No sig reported) 90 Tablet 1 amLODIPine Besylate 10 MG Oral Tablet (Norvasc) TAKE 1 TABLET BY MOUTH DAILY (Patient taking differently: daily.) 90 Tablet 1 Atenolol 50 MG Oral Tablet (Tenormin) TAKE 1 TABLET BY MOUTH ONCE DAILY (Patient taking differently: daily.) 90 Tablet 1 Ipratropium Call 0.03 % Nasal Solution (Atrovent) USE 2 [...] Capsule in the evening. 180 Capsule 3 Cefpodoxime Proxetil 200 MG Oral Tablet Take 1 Tablet by mouth in the morning and 1 Tablet in the evening. 14 Tablet 0 Nitrofurantoin Monohyd Macro 100 MG Oral Capsule (Macrobid) Take 1 Capsule by mouth in the morning and 1 Capsule before bedtime. Do all this for 10 days. With food until gone. 20 Capsule 0 LORazepam (ATIVAN) 1 MG Tablet Take 1 Tablet by mouth as needed. (Patient not taking: Reported on 12/10/2022) Methocarbamol 500 MG Oral Tablet (Robamol) Take 1 Tablet by mouth in the morning and 1 Tablet at noon and 1 Tablet in the evening and 1 Tablet before bedtime. (Patient not taking: Reported on 12/10/2022) No current facility-administered medications for this visit. Allergies: Allergies as of 12/22/2022 - Reviewed 12/22/2022 Allergen Reaction Noted Flagyl [metronidazole hcl] Hives 06/19/2009 Baclofen Neuro complications (Please comment) 06/12/2014 Ciprofloxacin Rash 07/16/2006 Macrobid [nitrofurantoin] 11/10/2022 Metronidazole 07/09/2020 Sulfa antibiotics Hives 11/03/2005 Zolpidem 07/09/2020 Protonix [pantoprazole sodium sesquihydrate] Other (Please comment) 10/03/2009 Family History Family History Problem Relation Age of Onset Hypertension Mother upper 80s Dementia Mother Other (poor circulation) Mother Other (diabetic) Father Cancer No significant family history Heart Disorder No significant family history Stroke No significant family history Thyroid Disorder No significant family history Eye Problems No significant family history Denies FH: AMD, Glaucoma, RD's or Blindness Breast Cancer No significant family history Social History Social History Socioeconomic History Marital status: Spouse [...] on file Housing Stability: Not on file ROS: GEN: no weight loss, fever, fatigue HEENT: no changes in vision or hearing, no sinus problems, no sore throat, no hoarseness RESPIRATORY: no cough, wheezing, SOB or change in breathing CARDIOVASCULAR: no exertional chest pain, dyspnea, palpitations GI: see HPI , otherwise negative : no dysuria, hematuria, frequency MUSCULOSKELETAL: no change in joint pains, no new arthritis PSYCHIATRIC: no significant anxiety or depression, unchanged sleep pattern HEME: no bleeding tendency, no clotting tendency NEURO: no significant headache, no seizures , no tremors SKIN: no new rashes, no itching Imaging: RUQ US reviewed, also reviewed studies from 2020 EUS: Impression: - Normal esophagus. - A single [...] Return to referring physician. Junior Us MD Lab: liver tests normal 12/08/22 Component Ref Range & Units 2 wk ago Albumin 3.8 - 5.0 g/dL 4.8 AST 10 - 35 U/L 17 Alkaline Phosphatase 35 - 130 U/L 86 ALT 10 - 35 U/L 14 Bilirubin, Total <=1.2 mg/dL 0.3 Bilirubin, Direct 0.0 - 0.3 mg/dL <0.2 Protein 6.0 - 8.3 g/dL 7.2 Impression: Mary Dyer is a 77 year old female with a 5 mm gallbladder polyp and gallbladder sludge. While the polyp has been present on ultrasound since 2020 and is unchanged in size, the sludgeis new and may be the source of her symptoms. We discussed laparoscopic cholecystectomy with risks of bleeding, infection, conversion to open,injury to the common duct, retained stone or bile leak and need for ercp, persistence of some of her symptoms. Consent signed today. She has an upcoming MRI scan to followup her concussion - will schedule surgery for after this time. Treatment Plan: Laparoscopic cholecystectomy. I spent a total of 20-29 minutes (exact time 25 mins) on the date of service in preparation, delivery, and documentation of the care provided to Mary Dyer excluding any time spent in the performance of separately billed services. Minda Almodovar M.D. 12/22/2022 12:10 PM documented in this encounter H&P Notes * Minda Almodovar MD - 12/22/2022 12:11 PM EDT Images from the original note were not included. Chief Complaint: Chief Complaint Patient presents with Follow Up Return after us abdomen History of Present Illness: Mary Dyer is [...] Return to referring physician. Junior Us MD Past Medical History Past Medical History: Diagnosis Date Acid reflux [...] Temporomandibular joint disorders, unspecified 07/14/2010 Past Surgical History Past Surgical History: Procedure Laterality Date ARTHROPLASTY KNEE TOTAL left BIOPSY OF BREAST, OPEN Left 05/23/2014 benign-nipple surgery BX LYMPH NODE DEEP AXIL 03/14/2013 03/14/2013 Left axillary lymph node dissection.dX: metastatic carcinoma seen in 16 & 21 examinated left lymph nodes Placement of right subclavian venous Port-A-Cath 03/14/[address] [facility] [employer] Yvette Kaur PA-C CERVICAL HEMILAMINECTOMY cage CHEMOTHERAPY 2012 left breast CA COLONOSCOPY W/ BIOPSY (RECTUM) 06/27/2009 await path & aspirate results, diverticulosis & Ext Hemmorrhoids COLONOSCOPY W/ LESION REMOVAL, SNARE 07/30/2006 repeat 5 yrs repeat in 5 years COLONOSCOPY, DIAGNOSTIC (RECTUM) 09/21/2014 adenomatous polyps, diverticulosis, repeat 5 yrs/COLONOSCOPY FLEXIBLE PROXIMAL DIAGNOSTIC performedby Bryn Christiansen MD at ENDOSCOPY [facility] COLONOSCOPY, DIAGNOSTIC (RECTUM) 09/13/2019 sigmoid diverticulosis/biopsies show adenomatous polyps/recall 2 years/COLONOSCOPY FLEXIBLE PROXIMAL DIAGNOSTIC performed by Whit Martínez MD at ENDOSCOPY [facility] COLONOSCOPY, DIAGNOSTIC (RECTUM) N/A 09/01/2022 benign adenomatous polyps, diverticulosis, repeat 3 yrs / COLONOSCOPY FLEXIBLE PROXIMAL DIAGNOSTIC performed by Walt Muniz MD at ENDOSCOPY [facility] CYSTOSCOPY 11/19/2008 with sounds CYSTOSCOPY 09/24/2006 EGD, FLEXIBLE, DIAGNOSTIC 04/08/09 done normal exam EGD, FLEXIBLE, DIAGNOSTIC 03/30/2012 UPPER GI ENDOSCOPY DIAGNOSTIC performed by Walt Muniz MD at ENDOSCOPY [facility] EGD, FLEXIBLE, DIAGNOSTIC 07/06/2017 KAT - normal results / [facility] EGD, FLEXIBLE, DIAGNOSTIC 08/30/2020 Normal scope / biopsies from your duodenum and stomach returned normal, showed reflux / ESOPHAGOGASTRODUODENOSCOPY (EGD), FLEXIBLE, TRANSORAL, DIAGNOSTIC performed by Whit Martínez MD at ENDOSCOPY [facility] EGD, W/ENDOSCOPIC US 12/10/2022 gastric polyp/sludge and polyp gallbladder/biopsies normal/ESOPHAGOGASTRODUODENOSCOPY (EGD), FLEXIBLE, TRANSORAL, ENDOSCOPIC ULTRASOUND performed by Junior Us MD at ENDOSCOPY [facility] EXPLORATION OF NIPPLE Left 05/23/2014 05/23/2014 NIPPLE EXPLORATION Dx no evidence of invasive carcinoma , proliferative fibrocystic changes Left performed by Minda Almodovar MD at OR [facility] INFORMATION Low back surgery INFORMATION 05/13/2008 neck surgery INTRANASAL BIOPSY ? 1999- Nasal polypectomy MISCELLANEOUS ORDER ([facility] ONLY) Right 10/07/2016 RLL cyst removed [place]--eye [...] performed by Nuha Dsouza DPM at OR [facility] REVISE UPPER EYELID/EXCESS SKIN Bilateral 11/07/2014 [place] US GUIDED BREAST BIOPSY LEFT Left 01/03/2013 malignant Medications: Current Outpatient Medications Medication Sig Dispense [...] Tablet by mouth as needed for Gas. promethazine (PHENERGAN) 25 MG Tablet Take 1 [...] (Patient taking differently: daily.) 90 Tablet 3 Pilocarpine HCl 5 MG [...] Take by mouth 3 times a day. Vancomycin HCl 125 MG Oral Capsule (Vancocin) Take 1 Capsule by mouth in the morning. 90 Capsule 2 Pravastatin Sodium 80 MG Oral Tablet TAKE 1 TABLET BY MOUTH ONCE DAILY (Patient taking differently:No sig reported) 90 Tablet 1 amLODIPine Besylate 10 MG Oral Tablet (Norvasc) TAKE 1 TABLET BY MOUTH DAILY (Patient taking differently: daily.) 90 Tablet 1 Atenolol 50 MG Oral Tablet (Tenormin) TAKE 1 TABLET BY MOUTH ONCE DAILY (Patient taking differently: daily.) 90 Tablet 1 Ipratropium Call 0.03 % Nasal Solution (Atrovent) USE 2 [...] Capsule in the evening. 180 Capsule 3 Cefpodoxime Proxetil 200 MG Oral Tablet Take 1 Tablet by mouth in the morning and 1 Tablet in the evening. 14 Tablet 0 Nitrofurantoin Monohyd Macro 100 MG Oral Capsule (Macrobid) Take 1 Capsule by mouth in the morning and 1 Capsule before bedtime. Do all this for 10 days. With food until gone. 20 Capsule 0 LORazepam (ATIVAN) 1 MG Tablet Take 1 Tablet by mouth as needed. (Patient not taking: Reported on 12/10/2022) Methocarbamol 500 MG Oral Tablet (Robamol) Take 1 Tablet by mouth in the morning and 1 Tablet at noon and 1 Tablet in the evening and 1 Tablet before bedtime. (Patient not taking: Reported on 12/10/2022) No current facility-administered medications for this visit. Allergies: Allergies as of 12/22/2022 - Reviewed 12/22/2022 Allergen Reaction Noted Flagyl [metronidazole hcl] Hives 06/19/2009 Baclofen Neuro complications (Please comment) 06/12/2014 Ciprofloxacin Rash 07/16/2006 Macrobid [nitrofurantoin] 11/10/2022 Metronidazole 07/09/2020 Sulfa antibiotics Hives 11/03/2005 Zolpidem 07/09/2020 Protonix [pantoprazole sodium sesquihydrate] Other (Please comment) 10/03/2009 Family History Family History Problem Relation Age of Onset Hypertension Mother upper 80s Dementia Mother Other (poor circulation) Mother Other (diabetic) Father Cancer No significant family history Heart Disorder No significant family history Stroke No significant family history Thyroid Disorder No significant family history Eye Problems No significant family history Denies FH: AMD, Glaucoma, RD's or Blindness Breast Cancer No significant family history Social History Social History Socioeconomic History Marital status: Spouse [...] Not on file Social History Narrative [facility] [place] INFORMATION ENVIRONMENTAL HISTORY: Type of Home: Two [...] on file Housing Stability: Not on file ROS: GEN: no weight loss, fever, fatigue HEENT: no changes in vision or hearing, no sinus problems, no sore throat, no hoarseness RESPIRATORY: no cough, wheezing, SOB or change in breathing CARDIOVASCULAR: no exertional chest pain, dyspnea, palpitations GI: see HPI , otherwise negative : no dysuria, hematuria, frequency MUSCULOSKELETAL: no change in joint pains, no new arthritis PSYCHIATRIC: no significant anxiety or depression, unchanged sleep pattern HEME: no bleeding tendency, no clotting tendency NEURO: no significant headache, no seizures , no tremors SKIN: no new rashes, no itching Imaging: RUQ US reviewed, also reviewed studies from 2020 EUS: Impression: - Normal esophagus. - A single [...] Return to referring physician. Junior Us MD Lab: liver tests normal 12/08/22 Component Ref Range & Units 2 wk ago Albumin 3.8 - 5.0 g/dL 4.8 AST 10 - 35 U/L 17 Alkaline Phosphatase 35 - 130 U/L 86 ALT 10 - 35 U/L 14 Bilirubin, Total <=1.2 mg/dL 0.3 Bilirubin, Direct 0.0 - 0.3 mg/dL <0.2 Protein 6.0 - 8.3 g/dL 7.2 Impression: Mary Dyer is a 77 year old female with a 5 mm gallbladder polyp and gallbladder sludge. While the polyp has been present on ultrasound since 2020 and is unchanged in size, the sludgeis new and may be the source of her symptoms. We discussed laparoscopic cholecystectomy with risks of bleeding, infection, conversion to open,injury to the common duct, retained stone or bile leak and need for ercp, persistence of some of her symptoms. Consent signed today. She has an upcoming MRI scan to followup her concussion - will schedule surgery for after this time. Treatment Plan: Laparoscopic cholecystectomy. I spent a total of 20-29 minutes (exact time 25 mins) on the date of service in preparation, delivery, and documentation of the care provided to Mary Dyer excluding any time spent in the performance of separately billed services. Minda Almodovar M.D. 12/22/2022 12:10 PM documented in this encounter Nursing Notes * Cassy Beatty LPN - 12/22/2022 9:34 AM EDT [facility] Cholecystectomy Pre-op Education Patient was seen in clinic 12/22/2022 for [facility] Cholecystectomy preoperative education. Patient was provided with the [facility] bag with supplies needed for preoperative preparation for surgery and educated per instructions on sheet. Patient was instructed to begin preparation on 12/22/2022. The following was provided to the patient: Patient Instruction Sheet HELP Card Chlorhexidine Soap Preventing Adverse Events During Surgery Pamphlet Help Prevent Skin Infections After Surgery Patient Education Included: Boost Breeze: Patient should drink at 10:00 pm the evening before surgery and 23hours before arrival time to the hospital on the day of their surgery. Patient has been instructed not to eat or drink anything other than Boost Breeze after midnight thenight before surgery. Antibacterial soap or wipes: Provided and instructed to use evening prior and morning of surgery; to leave the soap on skin for 2 minutes, and to not apply any lotions, creams, powders or deodorant after showering. Reviewed deep breathing and coughing exercises. Smoking cessation education not applicable. Preop testing reviewed with patient by provider (see screening labs and procedures ordered prior tosurgery). Ambulation requirements prior to surgery: Encouraged to walk twice a day for at least 10 minutes. Postoperative activity restrictions: No lifting, pushing or pulling greater than 10 pounds for minimum of 6 weeks post-op. Discharge Needs Assessment: Not applicable Patient has been or will be instructed by the preadmission testing nurse on which medications should be held prior to surgery. [facility] written instructions were provided to patient along with contact information for nurse and clinic. Patient encouraged to contact nurse with any questions or concerns. Patient verbalized understanding. * Cassy Beatty LPN - 12/22/2022 8:56 AM EDT Chief Complaint Patient presents with Follow Up Return after us abdomen documented in this encounter Plan of Treatment Upcoming Encounters Date Type Specialty Care Team Description 12/23/2022 Telemedicine Podiatry Nuha Dsouza, DPM [address] [place] [address] 01/12/2023 Office Visit Nephrology Bonnie Trevizo MD [address] [place] [address] 01/14/2023 Appointment Radiology 01/14/2023 Hospital Encounter Surgery [facility] In [facility] Out Surgery [address], [place] [id number] 01/14/2023 Surgery Surgery [facility] In And Out Surgery [address], [place] [id number] ANESTHESIA FOR NON-INVASIVE IMAGING (MRI OR CT) 01/20/2023 Office Visit Gastroenterology Rama Rojas CRNP [address] [place] [address] 02/11/2023 Office Visit Otolaryngology Idalia Lora PA-C [address] [place] [address] 03/09/2023 Hospital Encounter Surgery Minda Almodovar MD [address] [place] [address] 03/15/2023 Hospital Encounter Endoscopy Shobha Rodriguez MD [address] [place] [address] 03/15/2023 Surgery Endoscopy Shobha Rodriguez MD [address] [place] [address] COLONOSCOPY FLEXIBLE PROXIMAL DIAGNOSTIC 03/23/2023 Office Visit General Surgery Minda Almodovar MD [address] [place] [address] 04/21/2023 Office Visit Family Medicine Dav Hargrove MD [address] [place] [address] 04/22/2023 Imaging Radiology 05/07/2023 Office Visit Neurology Sissy Ellis MD [address] [place] [facility] [place] [address] 08/27/2023 Office Visit Allergy & Immunology Yordan Jones MD [address] [place] [facility] [place] [address] Scheduled Orders Name Type Priority Associated Diagnoses Orde r Schedule CBC Lab Routine Pre-op examination Expected: 12/22/2022, Expires: Scheduled Procedures Name Priority Associated Diagnoses Date/Ti [...] this encounter Medical Devices Implanted Type Area Cra Officer Device Identifier Shelf Expiration Date Model / Serial / Lot Sureclip 16mm 235cm - [id number] Implanted:Qty: 2 on 12/10/2022 by Junior Us MD at ENDOSCOPY [facility] Stomach MICRO TECH ENDOSCOPY 10/13/2023 [id number] / / [id number] documented as of this encounter Visit Diagnoses Diagnosis Pre-op examination- Primary Preoperative examination, unspecified Post concussion syndrome Postconcussion syndrome Diarrhea, unspecified type History of Clostridioides difficile infection documented in this encounter Care Teams [employer] Relationship Specialty Start Date End Date Dav Hargrove MD [address] [place] [address] PCP - General Family Medicine 05/28/20 documented as of this encounter
--- OUTSIDE RECORDS SUMMARY | 2023-06-13 22:53 | External Medical Summary ---
Author Name Unknown Address Unknown Organization [id number]:LABORATORY [facility] [place] [address] [place] [address] Laboratory Report Ordering Provider Test Date Status WEN CATALAN 12/31/2022 15:06:45 Final Observation Date Value Abnormality Reference (Units ) Status Color of Urine by Auto 12/31/2022 15:06:45 Yellow Light Yellow, Yellow, Dark Yellow Final Clarity, Urine 12/31/2022 15:06:45 Slightly Cloudy Abnormal Clear Final Glucose [Mass/volume] in Urine by Automated test strip 12/31/2022 15:06:45 Negative Negative (mg/dL) Final Bilirubin.total [Presence] in Urine by Automated test strip 12/31/2022 15:06:45 Negative Negative Final Ketones [Mass/volume] in Urine by Automated test strip 12/31/2022 15:06:45 Negative Negative (mg/dL) Final Specific gravity, Urine 12/31/2022 15:06:45 1.010 1.003-1.030 Final Hemoglobin [Presence] in Urine by Automated test strip 12/31/2022 15:06:45 Small Abnormal Negative Final pH, Urine 12/31/2022 15:06:45 6.5 5.0-7.5 (Units) Final Protein [Mass/volume] in Urine by Automated test strip 12/31/2022 15:06:45 100 Abnormal Negative (mg/dL) Final Urobilinogen [Mass/volume] in Urine by Automated test strip 12/31/2022 15:06:45 0.2 0.2, 1.0 (mg/dL) Final Nitrite [Presence] in Urine by Automated test strip 12/31/2022 15:06:45 Negative Negative Final Leukocyte esterase [Presence] in Urine by Automated test strip 12/31/2022 15:06:45 Large Abnormal Negative Final RBC, Urine 12/31/2022 15:06:45 0-2 0-2 (/HPF) Final WBC, Urine 12/31/2022 15:06:45 50+ Abnormal 0-2 (/HPF) Final Bacteria [#/area] in Urine sediment by Microscopy high power field 12/31/2022 15:06:45 26-50 Abnormal 0-25 (/HPF) Final Performing Location LAB[facility]ATORY [place] [address] [facility] [address]
--- OUTSIDE RECORDS SUMMARY | 2023-06-13 22:53 | External Medical Summary ---
Author Name Unknown Address Unknown Organization [id number]:[facility] [place] [address] [place] [address] Laboratory Report Ordering Provider Test Date Status WEN CATALAN 12/31/2022 14:53:05 Final Observation Date Value Abnormality Reference (Units ) Status Lipase 12/31/2022 14:53:05 40 13-60 (U/L ) Final Performing Location LABORATORY [facility] - [address] [place] [address]
--- OUTSIDE RECORDS SUMMARY | 2023-06-13 22:53 | External Medical Summary | Summary of Care ---
Author Name Unknown Organization [facility] Address [address] [facility] [place] [address] Phone [phone] Care Team Providers Care Tire Inspector Name Role Phone Dav Hargrove MD Primary Care Provider +1 [phone] Encounter Details Date Type Department Care Team Description 12/31/[address] [facility] [address] [place] [address] Dariana Fish CRNP [address] [facility] [place] [address] Allergies Active Allergy Reactions Severity [...] taking differently: Daily(AM), Reported on 12/07/2022 Ipratropium [place] 0.03 % Nasal Solution (Atrovent) USE 2 [...] mRNA, LNP-s, No Pre serve, 2-Dose Series (Porch) 07/02/2020,06/06/2020 Pneumococcal Conjugate Vacc, 13 Valent (Prevnar) [...] encounter Miscellaneous Notes * Telephone Encounter - Sonia Forde LPN - 12/31/2022 12:46 PM EDT Placed UTI labs for pt to get prior to appt today documented in this encounter Plan of Treatment Upcoming Encounters Date Type Specialty Care Team Description 12/31/2022 Office Visit Family Medicine Dariana Fish CRNP [address] [place] [address] 01/12/2023 Office Visit Nephrology Bonnie Trevizo MD [address] [place] [address] 01/14/2023 Appointment Radiology 01/14/2023 Hospital Encounter Surgery [facility] In And Out Surgery [address] [place] [address] 01/14/2023 Surgery Surgery [facility] In [facility] Out Surgery [address] [place] [address] ANESTHESIA FOR NON-INVASIVE IMAGING (MRI OR CT) 01/15/2023 Office Visit Neurology Sissy Ellis MD [address] [place] [address] 01/20/2023 Office Visit Gastroenterology Rama Rojas CRNP [address] [place] [address] 01/25/2023 Office Visit Orthopedics Ren Lyn, DO [address] [place] [address] 02/11/2023 Office Visit Otolaryngology Idalia Lora PA-C [address] [place] [address] 03/09/2023 Hospital Encounter Surgery Minda Almodovar MD [address] [place] [address] 03/09/2023 Surgery Surgery Minda Almodovar MD [address] [place] [address] LAPAROSCOPIC CHOLECYSTECTOMY 03/23/2023 Office Visit General Surgery Minda Almodovar MD [address] [place] [address] 04/06/2023 Hospital Encounter Endoscopy Huyen Marmolejo, DO [address] [place] [address] 04/06/2023 Surgery Endoscopy Huyen Marmolejo, DO [address] [place] [address] COLONOSCOPY FLEXIBLE PROXIMAL DIAGNOSTIC 04/21/2023 Office Visit Family Medicine Dav Hargrove MD [address] [place] [address] 04/22/2023 Imaging Radiology 08/27/2023 Office Visit Allergy & Immunology Yordan Jones MD 200 [place] [address] Scheduled Orders Name Type Priority Associated Diagnoses Orde r Schedule URINALYSIS WITH MICROSCOPIC EXAM Lab STAT Suspected UTI Expected: 12/31/2022, Expires: 01/01/2024 CULTURE, URINE, QUANTITATIVE Lab Routine Suspected UTI Expected: 12/31/2022, Expires: 01/01/2024 Scheduled Procedures Name Priority Associated Diagnoses Date/Ti [...] this encounter Medical Devices Implanted Type Area Xray Tech Device Identifier Shelf Expiration Date Model / Serial / Lot Sureclip 16mm 235cm - [id number] Implanted:Qty: 2 on 12/10/2022 by Junior Us MD at ENDOSCOPY [facility] Stomach MICRO TECH ENDOSCOPY 10/13/2023 [id number] / / [id number] documented as of this encounter Visit Diagnoses Diagnosis Suspected UTI- Primary Suspected UTI- Primary Post concussion syndrome Postconcussion syndrome Gallbladder polyp Cholesterolosis of gallbladder Diarrhea, unspecified type History of Clostridioides difficile infection documented in this encounter Care Teams Tire Inspector Relationship Specialty Start Date End Date Dav Hargrove MD [address] [place] [address] PCP - General Family Medicine 05/28/20 documented as of this encounter
--- OUTSIDE RECORDS SUMMARY | 2023-06-13 22:53 | External Medical Summary | Summary of Care ---
Author Name Unknown Organization [facility] Address [address] [facility] [place] [address] Phone [phone] Care Team Providers Care Scouts Name Role Phone Dav Hargrove MD Primary Care Provider [phone] [phone] Reason for Visit * Reason Comments Medication Administration Rocephin injec tion Encounter Details Date Type Department Care Team Description 12/23/2022 [facility] 132 [place] [address] [facility] [address] [place] [address] Acute cystitis without hematuria* Allergies Active Allergy Reactions Severity Noted Date [...] taking differently: Daily(AM), Reported on 12/07/2022 Ipratropium [place] 0.03 % Nasal Solution (Atrovent) USE 2 [...] on file documented as of this encounter Nursing Notes * Joaquin Gomez RN - 12/23/2022 3:55 PM EDT Chief Complaint Patient presents with Medication Administration Rocephin injection Pre-Administration Time Out Procedure Performed: Yes Patient Identified (Ask Name/Date of ): Yes Does the patient have a fever greater than 101 degrees today? No Patient allergic to latex? No Has the patient ever fainted after receiving an injection? No VFC Stock: No Injection(s) verified: Yes, Injection Name: Rocephin Verified Side and Site: Yes Verified Shot(s) with Parent(s)/Patient: Yes documented in this encounter Plan of Treatment Upcoming Encounters Date Type Specialty Care Team Description 01/12/2023 Office Visit Nephrology Bonnie Trevizo MD 200 [place] [address] 01/14/2023 Appointment Radiology 01/14/2023 Hospital Encounter Surgery [facility] [address] [facility] [address] 01/14/2023 Surgery Surgery [facility], In And Out Surgery [address] [facility] [address] ANESTHESIA FOR NON-INVASIVE IMAGING (MRI OR CT) 01/20/2023 Office Visit Gastroenterology Rama Rojas CRNP [address] [place] [address] 01/25/2023 Office Visit Orthopedics Ren Lyn DO [address] [place] [address] 02/11/2023 Office Visit Otolaryngology Idalia Lora PA-C [address] [place] [address] 03/09/2023 Hospital Encounter Surgery Minda Almodovar MD [address] [place] [address] 03/09/2023 Surgery Surgery Minda Almodovar MD [address] [place] [address] LAPAROSCOPIC CHOLECYSTECTOMY 03/15/2023 Hospital Encounter Endoscopy Shobha Rodriguez MD [address] [place] [address] 03/15/2023 Surgery Endoscopy Shobha Rodriguez MD [address] [place] [address] COLONOSCOPY FLEXIBLE PROXIMAL DIAGNOSTIC 03/23/2023 Office Visit General Surgery Minda Almodovar MD [address] [place] [address] 04/21/2023 Office Visit Family Medicine Dav Hargrove MD [address] [place] [address] 04/22/2023 Imaging Radiology 05/07/2023 Office Visit Neurology Sissy Ellis MD 200 [facility] [place] [place] [address] 08/27/2023 Office Visit Allergy & Immunology Yordan Jones MD [address] [facility] [place] [place] [address] Scheduled Procedures Name Priority Associated Diagnoses Date/Ti wa ANESTHESIA FOR NON-INVASIVE IMAGING (MRI OR CT) [...] this encounter Medical Devices Implanted Type Area Mat Packer Device Identifier Shelf Expiration Date Model / Serial / Lot Sureclip 16mm 235cm - [id number] Implanted:Qty: 2 on 12/10/2022 by Junior Us MD at ENDOSCOPY [facility] Stomach MICRO TECH ENDOSCOPY 10/13/2023 [id number] / / [id number] documented as of this encounter Visit Diagnoses Diagnosis Acute cystitis without hematuria- Primary Acute cystitis Post concussion syndrome Postconcussion syndrome Gallbladder polyp Cholesterolosis of gallbladder Diarrhea, unspecified type History of Clostridioides difficile infection documented in this encounter Administered Medications Inactive Administered Medications - up to 3 most recent administrations Medication Order MAR Action Action Date Dose Rate Site cefTRIAXone (Rocephin) inj 1 g 1 g, Intramuscular, ONCE, On 12/22/22 at 1745, For 1 dose Given 12/23/2022 3:58 PM EDT 1 g Dorsogluteal Right documented in this encounter Care Teams Scouts Relationship Specialty Start Date End Date Dav Hargrove MD [address] [place] [address] PCP - General Family Medicine 05/28/20 documented as of this encounter
--- OUTSIDE RECORDS SUMMARY | 2023-06-13 22:53 | External Medical Summary | Summary of Care ---
Author Name Unknown Organization [facility] Address [address] [facility] [place] [address] Phone [phone] Care Team Providers Care Miller Apprentice Name Role Phone Dav Hargrove MD Primary Care Provider [phone] [phone] Reason for Visit * Reason Comments Medication Administration Rocephin injec tion Encounter Details Date Type Department Care Team Description 12/23/2022 [facility] 132 [place] [address] [facility] 132 [place] [address] Acute cystitis without hematuria* Allergies [...] taking differently: Daily(AM), Reported on 12/07/2022 Ipratropium [place] 0.03 % Nasal Solution (Atrovent) USE 2 [...] Office Visit Nephrology Bonnie Trevizo MD 200 [place] [address] 01/14/2023 Appointment Radiology 01/14/2023 Hospital Encounter Surgery [facility] In [facility] Out Surgery [address] [facility] [place] [address] 01/14/2023 Surgery Surgery [facility] In And Out Surgery [address] [facility] [address] ANESTHESIA FOR NON-INVASIVE IMAGING (MRI OR CT) 01/20/2023 Office Visit Gastroenterology Rama Rojas CRNP [address] [place] [address] 01/25/2023 Office Visit Orthopedics Ren Lyn DO [address] [place] [address] 02/11/2023 Office Visit Otolaryngology Idalia Lora PA-C [address] [place] [address] 03/09/2023 Hospital Encounter Surgery Minda Almodovar MD [address] [place] [address] 03/09/2023 Surgery Surgery Minda Almodovar MD [address] [place] [address] LAPAROSCOPIC CHOLECYSTECTOMY 03/15/2023 Hospital Encounter Endoscopy Shobha Rodriguez MD [address] [place] [address] 03/15/2023 Surgery Endoscopy Shobha Rodriguez MD [address] [place] [address] COLONOSCOPY FLEXIBLE PROXIMAL DIAGNOSTIC 03/23/2023 Office Visit General Surgery Minda Almodovar MD [address] [place] [address] 04/21/2023 Office Visit Family Medicine Dav Hargrove MD [address] [place] [address] 04/22/2023 Imaging Radiology 05/07/2023 Office Visit Neurology Sissy Ellis MD 200 [facility] [place] [address] 08/27/2023 Office Visit Allergy & Immunology Yordan Jones MD [address] [facility] [place] [address] Scheduled Procedures Name Priority Associated Diagnoses Date/Ti nv ANESTHESIA FOR NON-INVASIVE IMAGING (MRI OR CT) [...] this encounter Medical Devices Implanted Type Area Jockey Valet Device Identifier Shelf Expiration Date Model / Serial / Lot Sureclip 16mm 235cm - [id number] Implanted:Qty: 2 on 12/10/2022 by Junior Us MD at ENDOSCOPY [facility] Stomach MICRO TECH ENDOSCOPY 10/13/2023 [id number] / / [id number] documented as of this encounter Visit Diagnoses [...] Right documented in this encounter Care Teams Miller Apprentice Relationship Specialty Start Date End Date Dav Hargrove MD [address] [place] [address] PCP - General Family Medicine 05/28/20 documented as of this encounter
--- OUTSIDE RECORDS SUMMARY | 2023-06-13 22:53 | External Medical Summary | Summary of Care ---
Author Name Unknown Organization [facility] Address [address] [facility] [place] [address] Phone [phone] Care Team Providers Care Jacquard Card Cutter Name Role Phone Dav Hargrove MD Primary Care Provider [phone] [phone] Reason for Visit * Reason Comments Outpatient Testing Encounter Details Date Type Department Care Team Description 12/31/2022 Laboratory Laboratory, [facility] [address] [facility] 132 [place] [address] Pre-op examination; Suspected UTI Allergies Active Allergy Reactions Severity Noted Date [...] taking differently: Daily(AM), Reported on 12/07/2022 Ipratropium [place] 0.03 % Nasal Solution (Atrovent) USE 2 [...] Office Visit Nephrology Bonnie Trevizo MD 200 [place] [address] 01/14/2023 Appointment Radiology 01/14/2023 Hospital Encounter Surgery [facility], In And Out Surgery [address] [place] [address] 01/14/2023 Surgery Surgery [facility], In And Out Surgery [address] [place] [address] ANESTHESIA FOR NON-INVASIVE IMAGING (MRI OR CT) 01/15/2023 Office Visit Neurology Sissy Ellis MD 200 [place] [address] 01/20/2023 Office Visit Gastroenterology Rama Rojas CRNP [address] [place] [address] 01/25/2023 Office Visit Orthopedics Ren Lyn DO [address] [place] [address] 02/11/2023 Office Visit Otolaryngology Idalia Lora PA-C [address] [place] [address] 03/09/2023 Hospital Encounter Surgery Minda Almodovar MD [address] [place], [place] [address] 03/09/2023 Surgery Surgery Minda Almodovar MD [address] [place] [address] LAPAROSCOPIC CHOLECYSTECTOMY 03/23/2023 Office Visit General Surgery Minda Almodovar MD [address] [place] [address] 04/06/2023 Hospital Encounter Endoscopy Huyen Marmolejo, DO [address] [place] [address] 04/06/2023 Surgery Endoscopy Huyen Marmolejo, DO [address] [place] [address] COLONOSCOPY FLEXIBLE PROXIMAL DIAGNOSTIC 04/21/2023 Office Visit Family Medicine Dav Hargrove MD [address] [place] [address] 04/22/2023 Imaging Radiology 08/27/2023 Office Visit Allergy & Immunology Yordan Jones MD [address] [place] [address] Pending Results Name Type Priority Associated Diagnoses Date /Time CBC Lab Routine Pre-op examination 12/31/2022 1:17 PM EDT CULTURE, URINE, QUANTITATIVE Lab Routine Suspected UTI 12/31/2022 1:24 PM EDT Scheduled Procedures Name Priority Associated [...] this encounter Medical Devices Implanted Type Area Hand Counter Device Identifier Shelf Expiration Date Model / Serial / Lot Sureclip 16mm 235cm - [id number] Implanted:Qty: 2 on 12/10/2022 by Junior Us MD at ENDOSCOPY [facility] Stomach MICRO TECH ENDOSCOPY 10/13/2023 [id number] / / [id number] documented as of this encounter Visit Diagnoses Diagnosis Pre-op examination Preoperative examination, unspecified Suspected UTI Post concussion syndrome Postconcussion syndrome Gallbladder polyp Cholesterolosis of gallbladder Diarrhea, unspecified type History of Clostridioides difficile infection documented in this encounter Care Teams Jacquard Card Cutter Relationship Specialty Start Date End Date Dav Hargrove MD [address] [place] [address] PCP - General Family Medicine 05/28/20 documented as of this encounter
--- OUTSIDE RECORDS SUMMARY | 2023-06-13 22:54 | External Medical Summary | Summary of Care ---
Author Name Unknown Organization [facility] Address [address] [facility] [place] [address] Phone [phone] Care Team Providers Care Auto Body Man Name Role Phone Dav Hargrove MD Primary Care Provider [phone] [phone] Reason for Visit * Reason Comments Acute UTI possibly Encounter Details Date Type Department Care Team Description 12/19/2022 Office Visit Family Practice [facility] 132 [facility] [place] [address] Linda Sanz PA-Jan [address] [place] [address] [place] [address] Dysuria* Allergies Active Allergy Reactions Severity Noted Date [...] as of this encounter (statuses as of 12/19/2022) Medications Medication Sig Dispensed Refills Start Date [...] Pain, Severe. 120 Tablet 2 07/13/2022 Active Additional Information Patient not taking.Reported on 12/19/2022 tiZANidine HCl 2 MG Oral Tablet (Zanaflex)Indicati ons:as needed Take by mouth 3 times a day. 0 07/17/2022 Active Vancomycin HCl 125 MG Oral Capsule (Vancocin) Take 1 Capsule by mouth in the morning. 90 Capsule 2 08/06/2022 Active Additional Information Patient not taking.Reported on 12/07/2022 Pravastatin Sodium 80 MG Oral TabletIndications: Dyslipidemia, [...] taking differently: Daily(AM), Reported on 12/07/2022 Ipratropium [place] 0.03 % Nasal Solution (Atrovent) USE 2 [...] as of this encounter (statuses as of 12/19/2022) Active Problems Problem Noted Date Moderate mitral [...] as of this encounter (statuses as of 12/19/2022) Resolved Problems Problem Noted Date Resolved Date [...] as of this encounter (statuses as of 12/19/2022) Immunizations Name Administration Dates Next Due COVID-19 [...] Sign Reading Time Taken Comments Blood Pressure 108/66 12/19/2022 10:10 AM EDT Pulse 68 12/19/2022 10:10 AM EDT Temperature 36.6 C (97.8 F) 12/19/2022 10:10 AM E DT Respiratory Rate - - Oxygen Saturation - - Inhaled Oxygen Concentration - - Weight 85.7 kg (189 lb) 12/19/2022 10:10 AM EDT Height - - Body Mass Index 29.6 12/07/2022 1:36 PM EDT documented in this encounter Progress Notes * Linda Sanz PA-C - 12/19/2022 10:15 AM EDT Nursing Notes: Susi Olmedo, MILENA 12/19/22 1008 Sign at exiting of workspace She is here for possible UTI or yeast infection. Pt here today for possible UTI. Pt has burning/pain with urination, frequency/urgency, lower abdominal pressure for the past week. Pt states that she did see conv care and was given macrobid, about 2weeks ago. She took all of this but the sx started to come back. Pt denies fever, chills, nausea, vomiting, flank pain, blood in urine. Pt has been drinking a lot of water. Review of patient's allergies indicates: Allergen Reactions [...] A GLASS OF WATER 90 Tablet 2 tiZANidine HCl 2 MG Oral [...] taking differently: daily.) 90 Tablet 1 Ipratropium [place] 0.03 % Nasal Solution (Atrovent) USE 2 [...] Tablet in the evening. 14 Tablet 0 LORazepam (ATIVAN) 1 MG Tablet Take 1 Tablet by mouth as needed. (Patient not taking: Reported on 12/10/2022) Methocarbamol 500 MG Oral Tablet (Robamol) Take 1 Tablet by mouth in the morning and 1 Tablet at noon and 1 Tablet in the evening and 1 Tablet before bedtime. (Patient not taking: Reported on 12/10/2022) traMADol HCl 50 MG Oral Tablet (Ultram) Take 2 Tablets by mouth every 6 hours as needed for Pain, Severe. (Patient not taking: Reported on 12/19/2022) 120 Tablet 2 Vancomycin HCl 125 MG Oral Capsule (Vancocin) Take 1 Capsule by mouth in the morning. (Patient not taking: Reported on 12/07/2022) 90 Capsule 2 No current facility-administered medications for this visit. Past Medical History: Diagnosis Date Acid reflux [...] tinnitus 01/21/2013 Temporomandibular joint disorders, unspecified 07/14/2010 Social History Socioeconomic History Marital status: Spouse [...] on file Housing Stability: Not on file O:Blood pressure 108/66, pulse 68, temperature 36.6 C (97.8 F), weight 85.7 kg (189 lb), not currently . GENERAL: alert, healthy, and no distress ABDOMEN: abdomen soft and mild lower abdominal tenderness. No CVA tenderness A:Dysuria (Primary) - CULTURE, URINE, QUANTITATIVE - Nitrofurantoin Monohyd Macro 100 MG Oral Capsule (Macrobid); Take 1 Capsule by mouth in the morning and 1 Capsule before bedtime. Do all this for 10 days. With food until gone. Start above med. Will send urine for culture. Any questions/problems, please call. If anything changes, worsens, develops new sx, please call [facility]. Follow Up: Return if symptoms worsen or fail to improve. Linda Sanz PA-C documented in this encounter Nursing Notes * Susi Olmedo CMA - 12/19/2022 10:08 AM EDT She is here for possible UTI or yeast infection. documented in this encounter Plan of Treatment Upcoming Encounters Date Type Specialty Care Team Description 12/22/2022 Office Visit General Surgery Minda Almodovar MD [address] [place] [address] 12/23/2022 Telemedicine Podiatry Nuha Dsouza, DPBrianna [address] [facility] [place] [address] 01/12/2023 Office Visit Nephrology Bonnie Trevizo MD 200 [place] [address] 01/14/2023 Appointment Radiology 01/14/[address] [facility], In And Out Surgery [address] [place], [place] [address] 01/14/[address] [facility], In And Out Surgery [address] [place] [address] ANESTHESIA FOR NON-INVASIVE IMAGING (MRI OR CT) 01/20/2023 Office Visit Gastroenterology Rama Rojas CRNP [address] [place] [address] 02/11/2023 Office Visit Otolaryngology Idalia Lora PA-C [address] [place] [address] 03/15/2023 Hospital Encounter Endoscopy Shobha Rodriguez MD [address] [place] [address] 03/15/2023 Surgery Endoscopy Shobha Rodriguez MD [address] [place] [address] COLONOSCOPY FLEXIBLE PROXIMAL DIAGNOSTIC 04/21/2023 Office Visit Family Medicine Dav Hargrove MD [address] [place] [address] 04/22/2023 Imaging Radiology 05/07/2023 Office Visit Neurology Sissy Ellis MD [address] [place] [facility] [place] [address] 08/27/2023 Office Visit Allergy & Immunology Yordan Jones MD [address] [place] [facility] [place] [address] Scheduled Orders Name Type Priority Associated Diagnoses Orde r Schedule CULTURE, URINE, QUANTITATIVE Lab Routine Dysuria Ordered: 12/19/2022 Scheduled Procedures Name Priority Associated Diagnoses Date/Ti me ANESTHESIA FOR NON-INVASIVE IMAGING (MRI OR CT) Post concussion syndrome 01/14/2023 7:30 AM EDT COLONOSCOPY FLEXIBLE PROXIMAL DIAGNOSTIC Diarrhea, unspecified type [...] this encounter Medical Devices Implanted Type Area Insurance Specialist Device Identifier Shelf Expiration Date Model / Serial / Lot Sureclip 16mm 235cm - [id number] Implanted:Qty: 2 on 12/10/2022 by Junior Us MD at ENDOSCOPY [facility] Stomach MICRO TECH ENDOSCOPY 10/13/2023 [id number] / / [id number] documented as of this encounter Visit Diagnoses Diagnosis Dysuria- Primary Post concussion syndrome Postconcussion syndrome Diarrhea, unspecified type History of Clostridioides difficile infection documented in this encounter Care Teams Auto Body Man Relationship Specialty Start Date End Date Dav Hargrove MD [address] [place] [address] PCP - General Family Medicine 05/28/20 documented as of this encounter
--- OUTSIDE RECORDS SUMMARY | 2023-06-13 22:54 | External Medical Summary | Summary of Care ---
Author Name Unknown Organization [facility] Address [facility] [address] Phone [phone] Care Team Providers Care Recycling Sorter Name Role Phone Dav Hargrove MD Primary Care Provider +1 [phone] Encounter Details Date Type Department Care Team Description 12/16/2022 Office Visit Podiatry [facility] 132 [facility] [place] [address] Nuha Dsouza, DPM 400 [facility] [place] [id number] Right foot pain*; Sural neuritis, right; History [...] as of this encounter (statuses as of 12/16/2022) Medications Medication Sig Dispensed Refills Start Date [...] Active Additional Information Patient not taking.Reported on 12/10/2022 tiZANidine HCl 2 MG Oral Tablet (Zanaflex)Indicatio ns:as needed Take by mouth 3 times a day. 0 07/17/2022 Active Vancomycin HCl 125 MG Oral Capsule (Vancocin) Take 1 Capsule by mouth in the morning. 90 Capsule 2 08/06/2022 Active Additional Information Patient not taking.Reported on 12/07/2022 Pravastatin Sodium 80 MG Oral TabletIndications:D yslipidemia, [...] taking differently: Daily(AM), Reported on 12/07/2022 Ipratropium [place] 0.03 % Nasal Solution (Atrovent) USE 2 [...] as of this encounter (statuses as of 12/16/2022) Active Problems Problem Noted Date Moderate mitral [...] as of this encounter (statuses as of 12/16/2022) Resolved Problems Problem Noted Date Resolved Date [...] as of this encounter (statuses as of 12/16/2022) Immunizations Name Administration Dates Next Due COVID-19 mRNA, LNP-s, No Pre serve, 2-Dose Series ([employer]) 07/02/2020,06/06/2020 Pneumococcal Conjugate Vacc, 13 Valent (Prevnar) [...] Progress Notes * Nuha Dsouza, MAHENDRA - 12/16/2022 10:00 AM EDT Podiatry Established Note [facility] Name: Mary Dyer : 1945 Date: 12/16/2022 [...] begin touse compression. Nurse to provide tubi academic interventionist compression sleeves, but she may use compression [...] initiated under direction and supervision of provider Nuha Dsouza DPM. Correct patient identity - Yes Correct [...] case with sports medicine for US injection. Nuha Dsouza DPM documented in this encounter [...] encounter Miscellaneous Notes * Addendum Note - Arnie Chatman LPN - 12/16/2022 12:58 PM EDTAddended by: ARNIE CHATMAN on: 12/16/2022 12:58 PM Modules accepted: Orders documented in this encounter Plan of Treatment Upcoming Encounters Date Type Specialty Care Team Description 12/23/2022 Telemedicine Podiatry Nuha Dsouza DPM 400 [facility] [place] [address] 01/12/2023 Office Visit Nephrology Bonnie Trevizo MD [address] [place] [address] 01/14/2023 Appointment Radiology 01/14/2023 Hospital [facility] [address] [place] [address] 01/14/2023 Surgery [place] [facility] [address] [place] [address] ANESTHESIA FOR NON-INVASIVE IMAGING (MRI OR CT) 01/20/2023 Office Visit Gastroenterology Rama Rojas CRNP [address] [place] [address] 02/11/2023 Office Visit Otolaryngology Idalia Lora PA-C [address] [place] [address] 03/15/2023 Hospital Encounter Endoscopy Shobha Rodriguez MD [address] [place] [address] 03/15/2023 Surgery Endoscopy Shobha Rodriguez MD [address] [place] [address] COLONOSCOPY FLEXIBLE PROXIMAL DIAGNOSTIC 04/21/2023 Office Visit Family Medicine Dav Hargrove MD [address] [place] [address] 04/22/2023 Imaging Radiology 05/07/2023 Office Visit Neurology Sissy Ellis MD [address] [facility] [place] [address] 08/27/2023 Office Visit Allergy & Immunology Yordan Jones MD [address] [place] [address] Pending Results Name Type Priority Associated Diagnoses Date /Time XR FOOT 3 OR MORE VIEWS Medical Imaging Routine Right foot pain 12/16/2022 10:20 AM EDT Scheduled Procedures Name Priority Associated Diagnoses [...] 12/12/2021, 03/11/2021, 12/21/2019, Additional history exists Depression Screening, Annual for Pts 12 and Over 12/12/2022 12/12/2021 TSH 04/16/2023 04/16/2022, 05/14, 02/20/2021, [...] this encounter Medical Devices Implanted Type Area Forensic Nurse Device Identifier Shelf Expiration Date Model / Serial / Lot Sureclip 16mm 235cm - [id number] Implanted:Qty: 2 on 12/10/2022 by Junior Us MD at ENDOSCOPY [facility] Stomach MICRO TECH ENDOSCOPY 10/13/2023 [id number] / / [id number] documented as of this encounter Visit Diagnoses Diagnosis Right foot pain- Primary Pain in limb Sural neuritis, right History of foot surgery Personal history of surgery to other organs Lower leg edema Edema Post concussion syndrome Postconcussion syndrome Diarrhea, unspecified type History of Clostridioides difficile infection documented in this encounter Care Teams Recycling Sorter Relationship Specialty Start Date End Date Dav Hargrove MD [address] [place] [address] PCP - General Family Medicine 05/28/20 documented as of this encounter
--- OUTSIDE RECORDS SUMMARY | 2023-06-13 22:54 | External Medical Summary ---
Author Name Unknown Address Unknown Organization K01:[facility] [place] [address] [facility] [address] Laboratory Report Ordering Provider Test Date Status CANDY HOWARD 12/19/2022 10:24:00 Final Observation Date Value Abnormality Reference (Units ) Status Bacteria identified in Specimen by Culture 12/19/2022 10:24:00 [id number]^ESCHE RICHIA COLI Abnormal Final >100,000 colonies/mL Escheri judy coli Bacteria identified in Specimen by Culture 12/19/2022 10:24:00 [id number]^PROTEUS HAUSERI Abnormal Final >100,000 colonies/mL Proteus hauseri Performing Location LABORATORY [address] [facility] [address] Ordering Provider Test Date Status CANDY HOWARD 12/19/2022 10:24:00 Final Observation Date Value Abnormality Reference (Units ) Status Ampicillin 12/19/2022 10:24:00 >=32 Resistant Final Ampicillin + Sulbactam 12/19/2022 10:24:00 16 Intermediate Final Cefazolin 12/19/2022 10:24:00 <=4 Susceptible Final Cefepime susceptibility 12/19/2022 10:24:00 <=1 Susceptible Final Ceftriaxone suceptibility 12/19/2022 10:24:00 <=1 Susceptible Final Ciprofloxacin 12/19/2022 10:24:00 <=0.25 Susceptible Final Due to serious side effects, the FDA has advised against using Ciprofloxacin to treat uncomplicated UTIs and respiratory tract infections unless there are no alternative treatment options. Gentamicin susceptibility 12/19/2022 10:24:00 <=1 Susc eptible Final Nitrofurantoin susceptibility 12/19/2022 10:24:00 <=16 Susceptible Final Piperacillin + Tazobactamsusceptibility 12/19/2022 10:24:00 <=4 Susceptible Final TMP-SMZ susceptibility 12/19/2022 10:24:00 <=20 Suscept ible Final Performing Location LABORATORY [facility] - [address] [facility] [address] Ordering Provider Test Date Status CANDY HOWARD 12/19/2022 10:24:00 Final Observation Date Value Abnormality Reference (Units ) Status Ampicillin 12/19/2022 10:24:00 >=32 Resistant Final Ampicillin + Sulbactam 12/19/2022 10:24:00 >=32 Resistant Final Cefepime susceptibility 12/19/2022 10:24:00 <=1 Susceptible Final Ceftriaxone suceptibility 12/19/2022 10:24:00 2 Intermediate Final Ciprofloxacin 12/19/2022 10:24:00 <=0.25 Susceptible Final Due to serious side effects, the FDA has advised against using Ciprofloxacin to treat uncomplicated UTIs and respiratory tract infections unless there are no alternative treatment options. Gentamicin susceptibility 12/19/2022 10:24:00 <=1 Susc eptible Final Nitrofurantoin susceptibility 12/19/2022 10:24:00 64 Resistant Final Piperacillin + Tazobactamsusceptibility 12/19/2022 10:24:00 <=4 Susceptible Final TMP-SMZ susceptibility 12/19/2022 10:24:00 <=20 Suscept ible Final Test: Culture, Urine, Quanti tative
Specimen Source: Urine, Clean Catch
Specimen Type: Urine
Specimen Date: 12/19/2022 10:24 AM
Result Date: 12/22/2022 1:21 PM
Result Status: Final result
Abnormal: Yes
Resulting Lab: LABORATORY [facility]
[address]
[facility] [address]

CULTURE

>100,000 colonies/mL Escherichia coli (Abnormal)

>100,000 colonies/mL Proteus hauseri (Abnormal)

SUSCEPTIBILITY

Escherichia coli Proteus hauseri
METHOD MICROBROTH DILUTIONS MICROBROTH DILUTIONS

AMPICILLIN >=32 Resistant >=32 Resistant
AMPICILLIN/SULBACTAM 16 Intermediate >=32 Resistant
CEFAZOLIN <=4 Susceptible
CEFEPIME <=1 Susceptible <=1 Susceptible
CEFTRIAXONE <=1 Susceptible 2 Intermediate
CIPROFLOXACIN <=0.25 Susceptible [1] <=0.25 Susceptible [2]
GENTAMICIN <=1 Susceptible <=1 Susceptible
NITROFURANTOIN <=16 Susceptible 64 Resistant
PIPERACILLIN TAZOBACTAM <=4 Susceptible <=4 Susceptible
TRIMETH/SULFAMETHOXAZOLE <=20 Susceptible <=20 Susceptible

[1] Due to serious side effects, the FDA has advised against using
Ciprofloxacin to treat uncomplicated UTIs and respiratory tract infections
unless there are no alternative treatment options.

[2] Due to serious side effects, the FDA has advised against using
Ciprofloxacin to treat uncomplicated UTIs and respiratory tract infections
unless there are no alternative treatment options.

null Performing Location LABORATORY [facility] - [address] [facility] [address]
--- OUTSIDE RECORDS SUMMARY | 2023-06-13 22:54 | External Medical Summary | Summary of Care ---
Author Name Unknown Organization [facility] Address [address] [facility] [place] [address] Phone [phone] Care Team Providers Care Supervisor Marble Name Role Phone Dav Hargrove MD Primary Care Provider [phone] [phone] Reason for Visit * Reason Comments Acute UTI possibly Encounter Details Date Type Department Care Team Description 12/19/2022 Office Visit Family Practice [facility] [place] [address] Linda Sanz PA-Jan [address] [place] [address] [place] [phone] Dysuria* Allergies Active Allergy Reactions Severity Noted [...] as of this encounter (statuses as of 12/20/2022) Medications Medication Sig Dispensed Refills Start Date [...] taking differently: Daily(AM), Reported on 12/07/2022 Ipratropium [place] 0.03 % Nasal Solution (Atrovent) USE 2 [...] as of this encounter (statuses as of 12/20/2022) Active Problems Problem Noted Date Moderate mitral [...] as of this encounter (statuses as of 12/20/2022) Resolved Problems Problem Noted Date Resolved Date [...] as of this encounter (statuses as of 12/20/2022) Immunizations Name Administration Dates Next Due COVID-19 [...] taking differently: daily.) 90 Tablet 1 Ipratropium [place] 0.03 % Nasal Solution (Atrovent) USE 2 [...] Almodovar MD [address] [place] [address] 12/23/2022 Telemedicine Podiatry Nuha Dsouza, DPBrianna 400 [facility] [place] [address] 01/12/2023 Office Visit Nephrology Bonnie Trevizo MD [address] [place] [address] 01/14/2023 Appointment Radiology 01/14/2023 Hospital Encounter Surgery [facility] [place] Surgery [address] [place], [place] [phone] 01/14/2023 Surgery Surgery [facility] In And Out Surgery [address] [place] [address] ANESTHESIA FOR NON-INVASIVE IMAGING (MRI OR CT) 01/20/2023 Office Visit Gastroenterology Rama Rojas CRNP [address] [place] [address] 02/11/2023 Office Visit Otolaryngology Idalia Lora PA-C [address] [place] [address] 03/15/2023 Hospital Encounter Endoscopy Shobha Rodriguez MD [address] [place] [address] 03/15/2023 Surgery Endoscopy Shobha Rodriguez MD [address] [place] [address] COLONOSCOPY FLEXIBLE PROXIMAL DIAGNOSTIC 04/21/2023 Office Visit Family Medicine Dav Hargrove MD [address] [place] [address] 04/22/2023 Imaging Radiology 05/07/2023 Office Visit Neurology Sissy Ellis MD [address] [place] [address] 08/27/2023 Office Visit Allergy & Immunology Yordan Jones MD [address] [place] [address] Pending Results Name Type Priority Associated Diagnoses Date /Time CULTURE, URINE, QUANTITATIVE Lab Routine Dysuria 12/19/2022 10:24 AM EDT Scheduled Procedures Name Priority Associated [...] this encounter Medical Devices Implanted Type Area Steam Trap Man Device Identifier Shelf Expiration Date Model / Serial / Lot Sureclip 16mm 235cm - [id number] Implanted:Qty: 2 on 12/10/2022 by Junior Us MD at ENDOSCOPY [facility] Stomach MICRO TECH ENDOSCOPY 10/13/2023 [id number] / / [id number] documented as of this encounter Visit Diagnoses Diagnosis Dysuria- Primary Post concussion syndrome Postconcussion syndrome Diarrhea, unspecified type History of Clostridioides difficile infection documented in this encounter Care Teams Supervisor Marble Relationship Specialty Start Date End Date Dav Hargrove MD [address] [place] [address] PCP - General Family Medicine 05/28/20 documented as of this encounter
--- OUTSIDE RECORDS SUMMARY | 2023-06-13 22:54 | External Medical Summary | Summary of Care ---
Author Name Unknown Organization [facility] Address [address] [facility] [address] Phone [phone] Care Team Providers Care Hot Room Attendant Name Role Phone Dav Hargrove MD Primary Care Provider +1 [phone] Encounter Details Date Type Department Care Team Description 12/16/2022 Office Visit Podiatry [facility] 132 [facility] [place] [address] Nuha Dsouza, DPM 400 [facility] [place] [id number] Right foot pain*; Sural neuritis, right; History [...] taking differently: Daily(AM), Reported on 12/07/2022 Ipratropium [place] 0.03 % Nasal Solution (Atrovent) USE 2 [...] mRNA, LNP-s, No Pre serve, 2-Dose Series ([employer]) 07/02/2020,06/06/2020 Pneumococcal Conjugate Vacc, 13 Valent (Prevnar) [...] Progress Notes * Nuha Dsouza DPM - 12/16/2022 10:00 AM EDT Podiatry Established Note [facility] Name: Mary Dyer : 1945 [...] injection today. I also asked she begin to use compression. Nurse to provide tubi windows server support technician compression sleeves, but she may use compression socksor stockings. I reviewed all risks, benefits, alternatives, [...] Nursing Notes * Anamaria Lockett LPN - 12/16/2022 10:12 AM EDT Pt presents with her , c/o pain in R foot x 'a couple months'. Located on the lateral side of right foot, radiated to back of heel, is 'sven'. Describes the feeling of 'a ball under' the front of R foot. documented in this encounter Plan of Treatment Upcoming Encounters Date Type Specialty Care Team Description 12/23/2022 Telemedicine Podiatry Nuha Dsouza DPM 400 [facility] [place] [phone] 01/12/2023 Office Visit Nephrology Bonnie Trevizo MD [address] [place] [address] 01/14/2023 Appointment Radiology 01/14/2023 Hospital Encounter Surgery [facility] [place] [facility] [address] [place], [place] [address] 01/14/2023 Surgery [facility] [address] [place], [place] [phone] ANESTHESIA FOR NON-INVASIVE IMAGING (MRI OR CT) 01/20/2023 Office Visit Gastroenterology Rama Rojas CRNP [address] [place] [address] 02/11/2023 Office Visit Otolaryngology Idalia Lora PA-C [address] [place] [address] 03/15/2023 Hospital Encounter Endoscopy Shobha Rodriguez MD [address] [place] [address] 03/15/2023 Surgery Endoscopy Shobha Rodriguez MD [address] [place] [address] COLONOSCOPY FLEXIBLE PROXIMAL DIAGNOSTIC 04/21/2023 Office Visit Family Medicine Dav Hargrove MD [address] [place] [address] 04/22/2023 Imaging Radiology 05/07/2023 Office Visit Neurology Sissy Ellis MD 200 [place] [address] 08/27/2023 Office Visit Allergy & Immunology Yordan Jones MD [address] [place] [address] Pending Results Name Type Priority Associated Diagnoses [...] this encounter Medical Devices Implanted Type Area Music Store Manager Device Identifier Shelf Expiration Date Model / Serial / Lot Sureclip 16mm 235cm - [id number] Implanted:Qty: 2 on 12/10/2022 by Junior Us MD at ENDOSCOPY [facility] Stomach MICRO TECH ENDOSCOPY 10/13/2023 [id number] / / [id number] documented as of this encounter Visit Diagnoses Diagnosis Right foot pain- Primary Pain in limb Sural neuritis, right History of foot surgery Personal history of surgery to other organs Lower leg edema Edema Post concussion syndrome Postconcussion syndrome Diarrhea, unspecified type History of Clostridioides difficile infection documented in this encounter Care Teams Hot Room Attendant Relationship Specialty Start Date End Date Dav Hargrove MD [address] [place] [address] PCP - General Family Medicine 05/28/20 documented as of this encounter
--- OUTSIDE RECORDS SUMMARY | 2023-06-13 22:54 | External Medical Summary | Summary of Care ---
Author Name Unknown Organization [facility] Address [address] [facility] [address] Phone [phone] Care Team Providers Care Composite Bond Technician Name Role Phone Dav Hargrove MD Primary Care Provider +1 [phone] Encounter Details Date Type Department Care Team Description 12/16/[address] [facility] 132 [facility] [place] [address] Nuha Dsouza, DPM 400 [facility] [place] [phone] Right foot pain*; Sural neuritis, right; History [...] taking differently: Daily(AM), Reported on 12/07/2022 Ipratropium [place] 0.03 % Nasal Solution (Atrovent) USE 2 [...] mRNA, LNP-s, No Pre serve, 2-Dose Series ([address]) 07/02/2020,06/06/2020 Pneumococcal Conjugate Vacc, 13 Valent (Prevnar) [...] 12/16/2022 10:00 AM EDT Podiatry Established Note [facility] Name: Mary Dyer : 1945 Date: [...] begin touse compression. Nurse to provide tubi billet recorder compression sleeves, but she may use compression [...] 12/23/2022 Telemedicine Podiatry Nuha Dsouza DPM 400 [facility] [place] [address] 01/12/2023 Office Visit Nephrology Bonnie Trevizo MD [address] [place] [address] 01/14/2023 Appointment Radiology 01/14/2023 Hospital [facility] [address] [place] [address] 01/14/2023 Surgery Surgery [facility] [place] [facility] [address] [place] [address] ANESTHESIA FOR NON-INVASIVE IMAGING (MRI OR CT) 01/20/2023 Office Visit Gastroenterology Rama Rojas CRNP [address] [place] [address] 02/11/2023 Office Visit Otolaryngology Idalia Lora PA-C [address] [place] [address] 03/15/2023 Hospital Encounter Endoscopy Shobha Rodriguez MD [address] [place] [address] 03/15/2023 Surgery Endoscopy Shobha Rodriguez MD [address] [place] [address] COLONOSCOPY FLEXIBLE PROXIMAL DIAGNOSTIC 04/21/2023 Office Visit Family Medicine Dav Hargrove MD [address] [place] [address] 04/22/2023 Imaging Radiology 05/07/2023 Office Visit Neurology Sissy Ellis MD [address] [place] [facility] [place] [address] 08/27/2023 Office Visit Allergy & Immunology [place] Jones MD [address] [place] [address] Pending Results Name Type Priority Associated Diagnoses [...] this encounter Medical Devices Implanted Type Area Pig Breeder Device Identifier Shelf Expiration Date Model / Serial / Lot Sureclip 16mm 235cm - [id number] Implanted:Qty: 2 on 12/10/2022 by Junior Us MD at ENDOSCOPY [facility] Stomach MICRO TECH ENDOSCOPY 10/13/2023 [id number] / / [id number] documented as of this encounter Visit Diagnoses Diagnosis Right foot pain- Primary Pain in limb Sural neuritis, right History of foot surgery Personal history of surgery to other organs Lower leg edema Edema Post concussion syndrome Postconcussion syndrome Diarrhea, unspecified type History of Clostridioides difficile infection documented in this encounter Care Teams Composite Bond Technician Relationship Specialty Start Date End Date Dav Hargrove MD [address] [place] [address] PCP - General Family Medicine 05/28/20 documented as of this encounter
--- OUTSIDE RECORDS SUMMARY | 2023-06-13 22:54 | External Medical Summary | Summary of Care ---
Author Name Unknown Organization [facility] Address [address] [facility] [address] Phone [phone] Care Team Providers Care Form Drafter Name Role Phone Dav Hargrove MD Primary Care Provider [phone] [phone] Encounter Details Date Type Department Care Team Description 12/16/2022 Office Visit Podiatry [facility] 132 [facility] [place] [address] Nuha Dsouza, DPM 400 [facility] [place] [phone] Right foot pain*; Sural neuritis, right; History [...] taking differently: Daily(AM), Reported on 12/07/2022 Ipratropium [place] 0.03 % Nasal Solution (Atrovent) USE 2 [...] mRNA, LNP-s, No Pre serve, 2-Dose Series ([employer]) 07/02/2020,06/06/2020 Pneumococcal Conjugate Vacc, 13 Valent (Prevnar) [...] 12/16/2022 10:00 AM EDT Podiatry Established Note [facility] Name: Mary Dyer : 1945 [...] begin touse compression. Nurse to provide tubi locomotive lubricating systems clerk compression sleeves, but she may use compression [...] Care Team Description 12/23/2022 Telemedicine Podiatry Nuha Dosuza DPM 400 [facility] [place] [phone] 01/12/2023 Office Visit Nephrology Bonnie Trevizo MD [address] [place] [address] 01/14/2023 Appointment Radiology 01/14/2023 Hospital Encounter Surgery [facility], [facility] Surgery [address] [place], [place] [phone] 01/14/2023 Surgery Surgery [facility] In And Out Surgery [address] [place], [place] [phone] ANESTHESIA FOR NON-INVASIVE IMAGING (MRI OR CT) 01/20/2023 Office Visit Gastroenterology Rama Rojas CRNP [address] [place] [address] 02/11/2023 Office Visit Otolaryngology Idalia Lora PA-C [address] [place] [address] 03/15/2023 Hospital Encounter Endoscopy Shobha Rodriguez MD [address] [place] [address] 03/15/2023 Surgery Endoscopy Shobha Rodriguez MD [address] [place] [address] COLONOSCOPY FLEXIBLE PROXIMAL DIAGNOSTIC 04/21/2023 Office Visit Family Medicine Dav Hargrove MD [address] [place] [address] 04/22/2023 Imaging Radiology 05/07/2023 Office Visit Neurology Sissy Ellis MD [address] [facility] [address] 08/27/2023 Office Visit Allergy & Immunology Yordan Jones MD [address] [place] [address] Pending Results Name Type Priority Associated Diagnoses [...] this encounter Medical Devices Implanted Type Area Casket Assembler Device Identifier Shelf Expiration Date Model / Serial / Lot Sureclip 16mm 235cm - [id number] Implanted:Qty: 2 on 12/10/2022 by Junior Us MD at ENDOSCOPY [facility] Stomach MICRO TECH ENDOSCOPY 10/13/2023 [id number] / / [id number] documented as of this encounter Visit Diagnoses Diagnosis Right foot pain- Primary Pain in limb Sural neuritis, right History of foot surgery Personal history of surgery to other organs Lower leg edema Edema Post concussion syndrome Postconcussion syndrome Diarrhea, unspecified type History of Clostridioides difficile infection documented in this encounter Care Teams Form Drafter Relationship Specialty Start Date End Date Dav Hargrove MD [address] [place] [address] PCP - General Family Medicine 05/28/20 documented as of this encounter
--- OUTSIDE RECORDS SUMMARY | 2023-06-13 22:54 | External Medical Summary | Summary of Care ---
Author Name Unknown Organization [facility] Address [address] [place] [address] Phone [phone] Care Team Providers Care Facility Mechanic Name Role Phone Dav Hargrove MD Primary Care Provider [phone] Reason for Visit * Reason Onset Date Comments Education 12/18/2022 Encounter Details Date Type Department Care Team Description 12/18/2022 Telephone Pre Surgery [facility] [address] [place] [address] [facility] [address] [place] [address] Education Allergies Active Allergy Reactions Severity Noted Date [...] as of this encounter (statuses as of 12/18/2022) Medications Medication Sig Dispensed Refills Start Date [...] taking differently: Daily(AM), Reported on 12/07/2022 Ipratropium [place] 0.03 % Nasal Solution (Atrovent) USE 2 [...] as of this encounter (statuses as of 12/18/2022) Active Problems Problem Noted Date Moderate mitral [...] as of this encounter (statuses as of 12/18/2022) Resolved Problems Problem Noted Date Resolved Date [...] as of this encounter (statuses as of 12/18/2022) Immunizations Name Administration Dates Next Due COVID-19 mRNA, LNP-s, No Pre serve, 2-Dose Series (Sumerian) 07/02/2020,06/06/2020 Pneumococcal Conjugate Vacc, 13 Valent (Prevnar) [...] Miscellaneous Notes * Telephone Encounter - DEANN Ayers - 12/18/2022 11:35 AM EDT Attempted to contact patient/patient clearance representative regarding History and Physical requirement for patient's imaging scheduled with anesthesia on 01/14/2023 Spoke with and advised H&P is needed within 30 days. documented in this encounter Plan of Treatment Upcoming Encounters Date Type Specialty Care Team Description 12/19/2022 Office Visit Family Medicine Linda Sanz PA-C [address] [place] [address] [place] [id number] 12/22/2022 Office Visit [facility] [address] 12/23/2022 Telemedicine Podiatry Nuha Dsouza D[facility] [address] [facility] [place] [address] 01/12/2023 [facility] [address] 01/14/2023 Appointment Radiology 01/14/2023 Hospital Encounter [facility] [place] [address] [facility] [address] 01/14/2023 Surgery Surgery [facility] [place] In And Out Surgery [address] [facility] [place] [address] ANESTHESIA FOR NON-INVASIVE IMAGING (MRI OR CT) 01/20/2023 Office Visit Gastroenterology Rama Rojas CRNP [address] [place] [address] 02/11/2023 Office Visit Otolaryngology Idalia Lora PA-C [address] [place] [address] 03/15/2023 Hospital Encounter Endoscopy Shobha Rodriguez MD [address] [place] [address] 03/15/2023 Surgery Endoscopy Shobha Rodriguez MD [address] [place] [address] COLONOSCOPY FLEXIBLE PROXIMAL DIAGNOSTIC 04/21/2023 Office Visit Family Medicine Dav Hargrove MD [address] [place] [address] 04/22/2023 Imaging Radiology 05/07/2023 Office Visit Neurology Sissy Ellis MD [address] [place] [address] 08/27/2023 Office Visit Allergy & Immunology Yordan Jones MD [address] [facility] [place] [address] Scheduled Procedures Name Priority Associated Diagnoses Date/Ti [...] this encounter Medical Devices Implanted Type Area Ordnance Handler Device Identifier Shelf Expiration Date Model / Serial / Lot Sureclip 16mm 235cm - [id number] Implanted:Qty: 2 on 12/10/2022 by Junior Us MD at [facility] Stomach MICRO TECH ENDOSCOPY 10/13/2023 [id number] / / [id number] documented as of this encounter Care Teams Facility Mechanic Relationship Specialty Start Date End Date Dav Hargrove MD [address] [place] [address] PCP - General Family Medicine 05/28/20 documented as of this encounter
--- OUTSIDE RECORDS SUMMARY | 2023-06-13 22:54 | External Medical Summary | Summary of Care ---
Author Name Unknown Organization [facility] Address [address] [facility] [address] Phone [phone] Care Team Providers Care Insurance Producer Name Role Phone Dav Hargrove MD Primary Care Provider [phone] Encounter Details Date Type Department Care Team Description 12/16/2022 Office Visit Podiatry [facility] [address] [facility] [place] [address] Nuha Winkler, DPM [address] [facility] [place] [id number] Right foot pain*; Sural neuritis, right; History [...] as of this encounter (statuses as of 12/17/2022) Medications Medication Sig Dispensed Refills Start Date [...] taking differently: Daily(AM), Reported on 12/07/2022 Ipratropium [place] 0.03 % Nasal Solution (Atrovent) USE 2 [...] right 2.5 mg IJ ONCE 12/17/2022 3 Active dexamethasone sodium phosphate 20 MG/5ML inj 2 mgIndications:Right foot pain,Sural neuritis, right 2 mg IJ ONCE 12/17/2022 3 Active documented as of this encounter (statuses as of 12/17/2022) Active Problems Problem Noted Date Moderate mitral [...] as of this encounter (statuses as of 12/17/2022) Resolved Problems Problem Noted Date Resolved Date [...] as of this encounter (statuses as of 12/17/2022) Immunizations Name Administration Dates Next Due COVID-19 [...] of this encounter Progress Notes * Nuha Winkler DPM - 12/16/2022 10:00 AM EDT Podiatry Established Note [facility] Name: Mary Dyer : 1945 [...] 04/29/2001 Metastatic cancer to axillary lymph nodes ([facility]) 02/21/2013 Moderate mitral regurgitation 07/20/2022 Obesity, [...] begin touse compression. Nurse to provide tubi liquor runner compression sleeves, but she may use compression [...] under direction and supervision of provider Nuha Winkler DPM. Correct patient identity - Yes [...] with sports medicine for US injection. Nuha Winkler DPM documented in this encounter Nursing [...] encounter Miscellaneous Notes * Addendum Note - Nuha Winkler DPM - 12/17/2022 7:41 AM EDTAddended by: NUHA WINKLER on: 12/17/2022 07:41 AM Modules accepted: Orders * Addendum Note - Arnie Chatman LPN - 12/16/2022 12:58 PM EDTAddended by: ARNIE CHATMAN on: 12/16/2022 12:58 PM Modules accepted: Orders documented in this encounter Plan of Treatment Upcoming Encounters Date Type Specialty Care Team Description 12/23/2022 Telemedicine Podiatry Nuha Winkler DPM [address] [place] [address] 01/12/2023 Office Visit Nephrology Bonnie Trevizo MD 200 [facility] [place] [address] 01/14/2023 Appointment Radiology 01/14/2023 Hospital Encounter Surgery [facility] [place], In And Out Surgery [address] [facility] [place] [address] 01/14/2023 Surgery Surgery [facility] [place] In And Out Surgery [address] [facility], [place] [id number] ANESTHESIA FOR NON-INVASIVE IMAGING (MRI OR CT) 01/20/2023 Office Visit Gastroenterology Rama Rojas CRNP [address] [place] [address] 02/11/2023 Office Visit Otolaryngology Idalia Lora PA-C [address] [place] [address] 03/15/2023 Hospital Encounter Endoscopy Shobha Rodriguez MD [address] [place] [address] 03/15/2023 Surgery Endoscopy Shobha Rodriguez MD [address] [place] [address] COLONOSCOPY FLEXIBLE PROXIMAL DIAGNOSTIC 04/21/2023 Office Visit Family Medicine Dav Hargrove MD [address] [place] [address] 04/22/2023 Imaging Radiology 05/07/2023 Office Visit Neurology Sissy [facility] [address] [facility] [place] [address] 08/27/2023 Office Visit Allergy & Immunology Yordan Jones MD [address] [facility] [place] [address] Pending Results Name Type Priority Associated Diagnoses [...] this encounter Medical Devices Implanted Type Area Piercer Operator Device Identifier Shelf Expiration Date Model / Serial / Lot Sureclip 16mm 235cm - [id number] Implanted:Qty: 2 on 12/10/2022 by Junior Us MD at [facility] Stomach MICRO TECH ENDOSCOPY 10/13/2023 [id number] / / [id number] documented as of this encounter Visit Diagnoses Diagnosis Right foot pain- Primary Pain in limb Sural neuritis, right History of foot surgery Personal history of surgery to other organs Lower leg edema Edema Post concussion syndrome Postconcussion syndrome Diarrhea, unspecified type History of Clostridioides difficile infection documented in this encounter Care Teams Insurance Producer Relationship Specialty Start Date End Date Dav Hargrove MD [address] [place] [address] PCP - General Family Medicine 05/28/20 documented as of this encounter
[2023-06-13] MEDS: ONDANSETRON INJ 2 MG/ML 2 ML VIAL ONE (23:11)
--- NOTE | 2023-06-13 23:20 | Emergency Department Note ---
Impression & Plan Acute UTI, Influenza A, Generalized weakness Admit to the [facility] ED Provider Note NAME: TEODORO PAEZ AGE: 77 SEX: Female INFORMANT: Patient ED PROVIDER(S): Chantale Pederson DO CHIEF COMPLAINT: Weakness PLAN: Disposition: Admit to the [facility] MEDICAL DECISION MAKING: This is a 77-year-old female patient who presents to the emergency department with increasing cough, fever and weakness. The patient had a similar episode happen in the fall which was associated with a urinary tract infection. The thought the same thing may be occurring. Laboratory studies revealed no leukocytosis or anemia. Her lactate and procalcitonin were normal. Renal function was normal. Electrolytes are normal. Glucose was mildly elevated at 120. Troponin was negative. Patient did vomit upon arrival here in the emergency department and was given a dose of Zofran. Urinalysis was positive for infection. Influenza a was noted to be positive on the upper respiratory bio fire testing. I reviewed these results with the patient and her . [facility] and [facility] will [facility] the patient for further inpatient care. Patient was noted to be somewhat dehydrated on physical exam and she was bolused with IV normal saline solution. 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 Triage Nursing notes: Reviewed and agree with them. Vital Signs: reviewed and unremarkable Additional History obtained from: who is at the bedside Differential Diagnosis: Sepsis, UTI, viral illness such as COVID or influenza Diagnostics, independently interpreted by me: ECG: Normal sinus rhythm at a rate of 78. T waves are flattened in the anteroateral leads. There is no ectopy Cardiac Monitoring: Normal sinus rhythm at a rate of 84 Imaging studies: Portable chest x-ray as my independent interpretation HPI: 77 year old Female arrives for evaluation of generalized weakness. Patient had an episode of bronchitis at the beginning of May around May 22. The symptoms seem to resolve but she began to develop a recurrent cough this past . Over the weekend, she developed a fever around 100 degrees. She then became weak today complained of blurry vision and then became confused around 8 PM this evening. Patient developed significant generalized weakness to the point that her had to help her to the bathroom. She had a similar event happen in the fall and was associated with a UTI.. PAST MEDICAL HISTORY: See Below, PAST SURGICAL HISTORY: See Below, SOCIAL HISTORY: See Below, HOME MEDICATIONS: See list ALLERGIES: See list VITALS: See Below PHYSICAL EXAMINATION: HEENT: Head - normocephalic and atraumatic. Pupils are equal, round, and reactive to light. Extraocular eye muscles are intact, and sclera are anicteric. Nose - moist nasal mucosa without discharge. Mouth - moist buccal mucosa. Oropharynx is nonerythematous and there is no tonsillar exudate or edema noted. Neck: Supple; no JVD or cervical lymphadenopathy Heart: Regular rate and rhythm. There is a normal S1 and S2 with no murmurs, clicks, or gallops appreciated. Lungs: Clear to auscultation bilaterally with no wheezes, rales, or rhonchi. Abdomen: Soft, completely nontender, nondistended, with good bowel sounds. There are no palpable pulsatile masses or hepatosplenomegaly. There is no guarding, rigidity, or rebound noted. Extremities: No evidence of cyanosis, clubbing, or edema. There are easily palpable peripheral pulses. Skin: warm and dry with good turgor and no rashes. Neuro: The patient is awake and follows directions but at times has mumbled speech. She is resting comfortably and moves all 4 extremities. She is oriented to person and place. Emergency department treatment: cardiac monitor, Zofran, IV cefepime, IV normal saline bolus Emergency department course: The patient was evaluated in room B-7. During nursing evaluation, the patient had an episode of vomiting and was given a dose of Zofran. IV lock was initiated and a urine specimen was obtained. Laboratory studies were drawn as above. Septic protocol was performed. Upper respiratory bio fire test was obtained. Patient was bolused with IV normal saline. She was given a dose of IV cefepime. I discussed the case with the [facility] Hospitalist and they will evaluate for further inpatient care Past Med/Surg History Medical History Anxiety Aspiration pneumonia 2017, suspected to be d/t GI upset, [facility] hospitalization 10/19/21, acid reflux spell, no hospitalization Asthma Stable C. difficile diarrhea chronic, on vancomycin for suppressive therapy, follows with [facility] GI Chronic kidney disease (CKD), stage III (moderate) CVA (cerebral vascular accident) old lacunar infarct in R cerebellar hemisphere noted on 05/2020 MRI brain Depression Fatty liver GERD (gastroesophageal reflux disease) History of bipolar disorder History of breast cancer s/p chemo and radiation--left side History of COVID-19 diagnosed 01/2021--sinus issue, no hospitalization--no issues now Hyperlipidemia Hypertension Hypothyroidism Leukocytosis Limb alert care status LUE restriction r/t lymphedema Lumbar stenosis with neurogenic claudication Lymphedema Mild cognitive impairment per S records Mitral valve posterior leaflet prolapse 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 per 05/2020 echo TIA (transient ischemic attack) 2018, no deficits, no neurologist Surgical History H/O colonoscopy H/O cystoscopy H/O dilation and curettage History of bilateral tubal ligation History of breast surgery History of cardiac cath 2016 > no stents History of cataract surgery R/L History of esophagogastroduodenoscopy (EGD) History of foot surgery right History of fusion of cervical spine x2--very limited with ROM History of lumbar spinal fusion x4 History of lymph node dissection of left axilla 03/14/2013- Left axillary lymph node dissection History of removal of Port-a-Cath History of total right knee replacement (TKR) History of vascular access device Port for chemo, later removed Status post total left knee replacement Family History Other No family history of adverse response to anesthesia Social History Smoking Status: Never smoker Second Hand Exposure: No; Do You Dip or Chew Tobacco: No; Hx Alcohol Use: No Hx Substance Use: No Preferred Language: Russian Communication Ability: Effective 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 Required: No Beliefs That Will Affect Care: None marital status: Current Living Situation: Spouse How many Children do You have: 0 Feels Safe at Home: Yes Assistive Devices: None Allergies Allergies Allergy/AdvReac Type Severity Reaction Status Date / Time ciprofloxacin Allergy Intermediate HIVES Verified 12/09/22 13:37 metronidazole Allergy Intermediate hives Verified 12/09/22 13:37 Sulfa (Sulfonamide Allergy Intermediate HIVES Verified 12/09/22 13:37 Antibiotics) baclofen AdvReac Severe NEURO Verified 12/09/22 13:37 SYMPTOMS pantoprazole AdvReac Mild migraines Verified 12/09/22 13:37 zolpidem AdvReac Mild delusions Verified 12/09/22 13:37 Home Meds Home Medications Medication Instructions Recorded Confirmed aspirin 81 mg tablet,delayed 81 mg PO QAM #0 tabs 11/17/11 06/14/23 release (Juanjo Low Dose Aspirin) levothyroxine 125 mcg tablet 125 mcg PO QAM ##0 02/04/13 06/14/23 atenolol 50 mg tablet 50 mg PO QAM ##0 05/24/14 06/14/23 pmnmrfgh-nlwshzfoy-qmxwdfysa 3.5 1 drp otic (ear) 2XWK ##0 05/24/14 06/14/23 mg/mL-10,000 unit/mL-1 % ear solution pravastatin 80 mg tablet 80 mg PO HS ##0 05/24/14 06/14/23 multivitamin (Multiple Vitamins 1 tab PO QPM #0 tabs 04/22/15 06/14/23 tablet) cranberry extract 300 mg tablet 300 mg PO BID ##0 07/07/16 06/14/23 gabapentin 300 mg capsule 300 mg PO TID #0 caps 07/07/16 06/14/23 omeprazole magnesium 20 mg 20 mg PO BID #0 caps 07/07/16 06/14/23 capsule,delayed release ascorbic acid (vitamin C) 1,000 mg 1 g PO BID ##0 12/03/16 06/14/23 tablet calcium carbonate 500 mg-vitamin 1 tab PO BID ##0 12/03/16 06/14/23 D3 5 mcg (200 unit) tablet (Calcium 500 + D) fluticasone propionate 50 2 spray intranasal AMPM ##0 12/03/16 06/14/23 mcg/actuation nasal spray,suspension lamotrigine 150 mg tablet 150 mg PO AMHS #0 tabs 03/28/17 06/14/23 (Lamictal) lorazepam 1 mg tablet 1 mg PO UD PRN Anxiety #0 tabs 03/28/17 06/14/23 dicyclomine 20 mg tablet 20 mg PO QID ##0 07/01/17 06/14/23 ipratropium bromide 21 mcg (0.03 2 spray intranasal QID ##0 07/01/17 06/14/23 %) nasal spray light mineral oil 1 %-mineral oil 2 drp ophthalmic (eye) BID 01/26/18 06/14/23 4.5 % eye drops (Soothe XP) meclizine 25 mg tablet 50 mg PO TID PRN Dizziness 01/26/18 06/14/23 ondansetron HCl 8 mg tablet 8 mg PO Q8 PRN Nausea 01/26/18 06/14/23 simethicone 80 mg chewable tablet 80 mg PO BID PRN Stomach Upset 01/26/18 06/14/23 (Gas Relief 80 (simethicone)) famotidine 40 mg tablet 40 mg PO QAM 02/08/20 06/14/23 trazodone 100 mg tablet 200 mg PO HS 02/08/20 06/14/23 amlodipine 10 mg tablet 10 mg PO QAM 05/21/20 06/14/23 pilocarpine HCl 5 mg tablet 5 mg PO TID 05/21/20 06/14/23 (Salagen (pilocarpine)) cetirizine 10 mg capsule (Zyrtec) 10 mg PO QAM 09/24/20 06/14/23 lithium carbonate 300 mg tablet 300 mg PO HS 05/23/21 06/14/23 promethazine 25 mg tablet 25 mg PO Q4H PRN Nausea 07/30/21 06/14/23 cyanocobalamin (vitamin B-12) 100 100 mcg PO QAM 12/29/21 06/14/23 mcg tablet (Vitamin B-12) buspirone 7.5 mg tablet 7.5 mg PO TID 06/14/23 06/14/23 cyclosporine 0.05 % eye drops in a 1 drp OPB BID 06/14/23 06/14/23 dropperette (Restasis) furosemide 20 mg tablet 20 mg PO QAM 06/14/23 06/14/23 losartan 100 mg tablet 100 mg PO QAM 06/14/23 06/14/23 tramadol 50 mg tablet 50 - 100 mg PO Q4 PRN pain 06/14/23 06/14/23 Results & Data (ED) Vital Signs Vital Signs - 24 hr 06/13/23 22:39 06/13/23 22:40 06/13/23 22:44 Temperature 36.7 C Temperature Source Temporal Artery Scan Pulse Rate 84 84 Pulse Rate [Apical] 74 Pulse Rate from SpO2 Sensor Pulse Rhythm Pulse Rhythm [Apical] Regular Pulse Strength [Apical] Respiratory Rate 20 17 Respiratory Effort / Characteristics Non-Labored Spontaneous Respiratory Depth Normal Respiratory Pattern Regular Blood Pressure 102/64 Blood Pressure [Right Arm] 114/62 Blood Pressure Mean 76 Blood Pressure Mean [Right Arm] 79 Blood Pressure Position [Right Arm] Lying Pulse Oximetry 93 92 Oxygen Delivery Method Nasal Cannula Room Air Oxygen Flow Rate 2 Sepsis Recent Fever Within 48 Hours No Sepsis New/Unexplained Change in Mental Status No Sepsis Action Taken by Nursing No Action Required 06/13/23 23:09 06/13/23 23:11 06/13/23 23:11 Temperature Temperature Source Pulse Rate Pulse Rate [Apical] Pulse Rate from SpO2 Sensor 81 74 Pulse Rhythm Pulse Rhythm [Apical] Pulse Strength [Apical] Respiratory Rate Respiratory Effort / Characteristics Respiratory Depth Respiratory Pattern Blood Pressure 115/76 Blood Pressure [Right Arm] Blood Pressure Mean 99 Blood Pressure Mean [Right Arm] Blood Pressure Position [Right Arm] Pulse Oximetry 89 L 92 Oxygen Delivery Method Room Air Nasal Cannula Oxygen Flow Rate 2 Sepsis Recent Fever Within 48 Hours Sepsis New/Unexplained Change in Mental Status Sepsis Action Taken by Nursing 06/13/23 23:16 06/13/23 23:30 06/13/23 23:30 Temperature Temperature Source Pulse Rate 73 75 Pulse Rate [Apical] Pulse Rate from SpO2 Sensor 74 Pulse Rhythm Regular Pulse Rhythm [Apical] Pulse Strength [Apical] Respiratory Rate 20 20 Respiratory Effort / Characteristics Respiratory Depth Respiratory Pattern Blood Pressure 114/62 Blood Pressure [Right Arm] Blood Pressure Mean 73 Blood Pressure Mean [Right Arm] Blood Pressure Position [Right Arm] Pulse Oximetry 94 94 Oxygen Delivery Method Nasal Cannula Nasal Cannula Oxygen Flow Rate 2 2 Sepsis Recent Fever Within 48 Hours Sepsis New/Unexplained Change in Mental Status Sepsis Action Taken by Nursing 06/14/23 00:00 06/14/23 00:00 06/14/23 00:30 Temperature Temperature Source Pulse Rate 71 Pulse Rate [Apical] Pulse Rate from SpO2 Sensor 71 Pulse Rhythm Pulse Rhythm [Apical] Pulse Strength [Apical] Respiratory Rate 20 Respiratory Effort / Characteristics Respiratory Depth Respiratory Pattern Blood Pressure 98/60 L 100/58 L Blood Pressure [Right Arm] Blood Pressure Mean 66 63 Blood Pressure Mean [Right Arm] Blood Pressure Position [Right Arm] Pulse Oximetry 95 Oxygen Delivery Method Nasal Cannula Oxygen Flow Rate 2 Sepsis Recent Fever Within 48 Hours Sepsis New/Unexplained Change in Mental Status Sepsis Action Taken by Nursing 06/14/23 00:30 06/14/23 00:30 06/14/23 01:00 Temperature Temperature Source Pulse Rate 68 76 Pulse Rate [Apical] 68 Pulse Rate from SpO2 Sensor 68 75 Pulse Rhythm Pulse Rhythm [Apical] Regular Pulse Strength [Apical] Normal Respiratory Rate 17 20 19 Respiratory Effort / Characteristics Non-Labored Spontaneous Respiratory Depth Normal Respiratory Pattern Regular Blood Pressure Blood Pressure [Right Arm] 100/58 L Blood Pressure Mean Blood Pressure Mean [Right Arm] 72 Blood Pressure Position [Right Arm] Semi-fowlers Pulse Oximetry 96 96 98 Oxygen Delivery Method Nasal Cannula Nasal Cannula Nasal Cannula Oxygen Flow Rate 2 2 2 Sepsis Recent Fever Within 48 Hours Sepsis New/Unexplained Change in Mental Status Sepsis Action Taken by Nursing 06/14/23 01:00 06/14/23 01:30 06/14/23 01:30 Temperature Temperature Source Pulse Rate 71 Pulse Rate [Apical] Pulse Rate from SpO2 Sensor 71 Pulse Rhythm Pulse Rhythm [Apical] Pulse Strength [Apical] Respiratory Rate 20 Respiratory Effort / Characteristics Respiratory Depth Respiratory Pattern Blood Pressure 112/62 119/67 Blood Pressure [Right Arm] Blood Pressure Mean 75 75 Blood Pressure Mean [Right Arm] Blood Pressure Position [Right Arm] Pulse Oximetry 98 Oxygen Delivery Method Nasal Cannula Oxygen Flow Rate 2 Sepsis Recent Fever Within 48 Hours Sepsis New/Unexplained Change in Mental Status Sepsis Action Taken by Nursing 06/14/23 02:00 06/14/23 02:00 06/14/23 02:30 Temperature Temperature Source Pulse Rate 76 Pulse Rate [Apical] Pulse Rate from SpO2 Sensor 76 Pulse Rhythm Pulse Rhythm [Apical] Pulse Strength [Apical] Respiratory Rate 24 Respiratory Effort / Characteristics Respiratory Depth Respiratory Pattern Blood Pressure 106/57 L 115/60 Blood Pressure [Right Arm] Blood Pressure Mean 64 75 Blood Pressure Mean [Right Arm] Blood Pressure Position [Right Arm] Pulse Oximetry 98 Oxygen Delivery Method Nasal Cannula Oxygen Flow Rate 2 Sepsis Recent Fever Within 48 Hours Sepsis New/Unexplained Change in Mental Status Sepsis Action Taken by Nursing 06/14/23 02:30 06/14/23 02:30 06/14/23 03:00 Temperature Temperature Source Pulse Rate 76 78 Pulse Rate [Apical] 78 Pulse Rate from SpO2 Sensor 77 79 Pulse Rhythm Pulse Rhythm [Apical] Regular Pulse Strength [Apical] Normal Respiratory Rate 21 21 23 Respiratory Effort / Characteristics Non-Labored Spontaneous Respiratory Depth Normal Respiratory Pattern Regular Blood Pressure Blood Pressure [Right Arm] 115/60 Blood Pressure Mean Blood Pressure Mean [Right Arm] 78 Blood Pressure Position [Right Arm] Semi-fowlers Pulse Oximetry 98 97 100 Oxygen Delivery Method Nasal Cannula Nasal Cannula Nasal Cannula Oxygen Flow Rate 2 2 2 Sepsis Recent Fever Within 48 Hours Sepsis New/Unexplained Change in Mental Status Sepsis Action Taken by Nursing 06/14/23 03:00 06/14/23 03:30 06/14/23 03:30 Temperature Temperature Source Pulse Rate 75 Pulse Rate [Apical] Pulse Rate from SpO2 Sensor 76 Pulse Rhythm Pulse Rhythm [Apical] Pulse Strength [Apical] Respiratory Rate 21 Respiratory Effort / Characteristics Respiratory Depth Respiratory Pattern Blood Pressure 105/57 L 130/67 Blood Pressure [Right Arm] Blood Pressure Mean 65 91 Blood Pressure Mean [Right Arm] Blood Pressure Position [Right Arm] Pulse Oximetry 98 Oxygen Delivery Method Nasal Cannula Oxygen Flow Rate 2 Sepsis Recent Fever Within 48 Hours Sepsis New/Unexplained Change in Mental Status Sepsis Action Taken by Nursing Laboratory Data 06/13/23 23:16 06/13/23 23:16 Lab Results 06/13/23 06/13/23 Range/Units 23:16 23:34 WBC 5.31 (4.8-10.8) K/ul RBC 4.35 (4.20-5.40) M/uL Hgb 12.4 (12.0-16.0) g/dl Hct 38.6 (37.0-47.0) % MCV 88.7 (80.0-100.0) fL MCH 28.5 (25.0-34.0) pg MCHC 32.1 (32.0-36.0) g/dL RDW Std Deviation 47.8 H (36.4-46.3) fL RDW Coeff of [place] 14.6 H (11.5-14.5) % Plt Count 207 (130-400) K/uL MPV 9.1 L (9.4-12.4) fL Immature Gran % (Auto) 0.6 % Neut % (Auto) 66.6 % Lymph % (Auto) 19.4 % [place] % (Auto) 13.4 % Eos % (Auto) 0.0 % Baso % (Auto) 0.0 % Neut # (Auto) 3.54 (1.40-6.50) K/uL Lymph # (Auto) 1.03 L (1.20-3.40) K/uL [place] # (Auto) 0.71 H (0.11-0.59) K/uL Eos # (Auto) 0.00 (0.00-0.50) K/uL Baso # (Auto) 0.00 (0.00-0.20) K/uL Immature Gran # (Auto) 0.03 (0.01-0.20) K/uL Sodium 137 (136-145) mmol/L Potassium 4.1 (3.5-5.1) mmol/L Chloride 104 (98-107) mmol/L Carbon Dioxide 25 (21-32) mmol/L Anion Gap 8 (3-11) BUN 10 (6-23) mg/dl Creatinine 1.29 H (0.6-1.2) mg/dl Est Cr Clr Drug Dosing 40.3 ml/min Est GFR ( Amer) 46.9 ml/min Est GFR (Non-Af Amer) 40.5 ml/min BUN/Creatinine Ratio 7.8 L (10-20) Glucose 120 H (70-99(Fasting)) mg/dl Lactate 1.8 (0.4-2.0) mmol/L Calcium 9.1 (8.6-10.3) mg/dl Magnesium 1.9 (1.7-2.4) mg/dl Total Bilirubin 0.2 (0.2-1.0) mg/dl Direct Bilirubin 0.0 (0-0.2) mg/dl AST 16 (13-39) U/L ALT 12 (7-52) U/L Alkaline Phosphatase 64 (34-104) U/L Troponin I High Sens 5.6 (0-14) pg/ml Total Protein 7.0 (6.0-8.3) gm/dl Albumin 4.3 (3.4-5.0) gm/dl Procalcitonin 0.11 (0-0.5) ng/ml Urine Color Yellow Urine Appearance Clear (Clear) Urine pH 7.5 (4.5-7.5) Ur Specific [place] 1.012 (1.000-1.030) Urine Protein Negative (Negative) Urine Glucose (UA) Negative (Negative) Urine Ketones Negative (Negative) Urine Blood Negative (Negative) Urine Nitrite Negative (Negative) Urine Bilirubin Negative (Negative) Urine Urobilinogen Negative (Negative) Ur Leukocyte Esterase 1+ H (Negative) Urine WBC (Auto) 10-30 H (0-5) /hpf Urine RBC (Auto) 0-4 (0-4) /hpf U Hyaline Cast (Auto) 0 (0-5) /lpf U Epithel Cells (Auto) 0-5 (0-5) /lpf Urine Bacteria (Auto) 3+ H (Negative) Adenovirus (PCR) Not Detected (NotDetected) B. pertussis DNA (PCR) Not Detected (NotDetected) B.parapertussis DNA PCR Not Detected (NotDetected) C. pneumoniae DNA (PCR) Not Detected (NotDetected) Coronavirus OC43 (PCR) Not Detected (NotDetected) Coronavirus HKU1 (PCR) Not Detected (NotDetected) Coronavirus 229E (PCR) Not Detected (NotDetected) SARS-CoV-2 (PCR) Not Detected (NotDetected) Coronavirus NL63 (PCR) Not Detected (NotDetected) Human Metapneumovir PCR Not Detected (NotDetected) Influenza A (H3) PCR DETECTED A (NotDetected) Influenza Type B (PCR) Not Detected (NotDetected) M. pneumoniae (PCR) Not Detected (NotDetected) Parainfluenza 1 (PCR) Not Detected (NotDetected) Parainfluenza 2 (PCR) Not Detected (NotDetected) Parainfluenza 3 (PCR) Not Detected (NotDetected) Parainfluenza 4 (PCR) Not Detected (NotDetected) RSV (PCR) Not Detected (NotDetected) Entero/Rhino (PCR) Not Detected (NotDetected) Administered Medications Sodium Chloride (Nss) 500 mls @ 125 mls/hr IV .Q4H BABATUNDE Stop: 07/14/23 02:29 Last Admin: 06/14/23 02:32 Dose: 125 mls/hr Documented By: RAJI Discontinued Medications Cefepime HCl (Maxipime) 2,000 mg in 20 mls @ 5 mls/min IV NOW STA; Protocol Stop: 06/14/23 00:25 Last Admin: 06/14/23 00:48 Dose: 5 mls/min Documented By: RAJI Sodium Chloride (Nss) 500 mls @ 999 mls/hr IV .Q31M ONE Stop: 06/14/23 02:55 Last Infusion: 06/14/23 03:13 Dose: Infused Documented By: Admin: 06/14/23 02:32 Dose: 999 mls/hr Documented By: RAJI Ondansetron HCl (Ondansetron Inj 2 Mg/Ml 2 Ml Vial) Confirm Administered Dose 4 mg .ROUTE .STK-MED ONE Stop: 06/13/23 22:52 Last Admin: 06/13/23 23:11 Dose: 4 mg Documented By: MERARY Discharge Plan Visit Data Chief Complaint: TIA Symptoms Stated Complaint: WEAKNESS, TROUBLE BALANCING, BLURRY VISION, ED Provider: Chantale Pederson Discharge Problem: Acute UTI, Influenza A, Generalized weakness Forms Stand Alone Forms: [facility] [employer] Prescriptions Prescriptions: No Action aspirin [Juanjo Low Dose Aspirin] 81 mg Tablet,Delayed Release (Dr/Ec) 81 mg PO QAM Qty: 0 levothyroxine 125 mcg Tablet 125 mcg PO QAM Qty: 0 pravastatin 80 mg Tablet 80 mg PO HS Qty: 0 atenolol 50 mg Tablet 50 mg PO QAM Qty: 0 laijrhhw-mrpjyphcs-GN 3.5-10,000-1 mg/mL-unit/mL-% Solution 1 drp OTIC (EAR) 2XWK Qty: 0 Rx Instructions: we/sa multivitamin [Multiple Vitamins] Tablet 1 tab PO QPM Qty: 0 cranberry extract 300 mg Tablet 300 mg PO BID Qty: 0 gabapentin 300 mg Capsule 300 mg PO TID Qty: 0 omeprazole magnesium 20 mg Capsule,Delayed Release(Dr/Ec) 20 mg PO BID Qty: 0 ascorbic acid (vitamin C) 1,000 mg Tablet 1 g PO BID Qty: 0 fluticasone propionate 50 mcg/actuation [place],Suspension 2 spray INTRANASAL AMPM Qty: 0 calcium carbonate-vitamin D3 [Calcium 500 + D] 500 mg(1,250mg) -200 unit Tablet 1 tab PO BID Qty: 0 lamotrigine [Lamictal] 150 mg Tablet 150 mg PO AMHS Qty: 0 lorazepam 1 mg Tablet 1 mg PO UD PRN (Reason: Anxiety) Qty: 0 dicyclomine 20 mg Tablet 20 mg PO QID Qty: 0 ipratropium bromide 0.03 % [place],Non-Aerosol 2 spray INTRANASAL QID Qty: 0 Zyrtec 10 mg capsule 10 mg PO QAM promethazine 25 mg tablet 25 mg PO Q4H PRN (Reason: Nausea) famotidine 40 mg Tablet 40 mg PO QAM trazodone 100 mg tablet 200 mg PO HS amlodipine 10 mg tablet 10 mg PO QAM pilocarpine HCl [Salagen (pilocarpine)] 5 mg tablet 5 mg PO TID ondansetron HCl 8 mg Tablet 8 mg PO Q8 PRN (Reason: Nausea) meclizine 25 mg Tablet 50 mg PO TID PRN (Reason: Dizziness) simethicone [Gas Relief 80 (simethicone)] 80 mg Tablet,Chewable 80 mg PO BID PRN (Reason: Stomach Upset) Soothe XP 1-4.5 % Drops 2 drp ophthalmic (eye) BID Rx Instructions: USE BETWEEN RESTASIS cyanocobalamin (vitamin B-12) [Vitamin B-12] 100 mcg Tablet 100 mcg PO QAM lithium carbonate 300 mg Tablet 300 mg PO HS buspirone 7.5 mg tablet 7.5 mg PO TID furosemide 20 mg tablet 20 mg PO QAM losartan 100 mg tablet 100 mg PO QAM tramadol 50 mg tablet 50 - 100 mg PO Q4 MDD 8 PRN (Reason: pain) cyclosporine [Restasis] 0.05 % dropperette 1 drp OPB BID Referrals Referrals: Dav Hargrove MD [Primary Care Provider] -
[2023-06-13 23:34] LABS: Appearance Urine Clear (Clear); Bacteria Urine Automated 3+ (Negative); Bilirubin Urine Negative (Negative); Blood Urine Negative (Negative); Cast Urine Automated 0 /lpf (0-5); Color Urine Yellow; Epithelial Cell Urine Auto 0-5 /lpf (0-5); Glucose Urine UA Negative (Negative); Ketones Urine Negative (Negative); Leukocyte Esterase Urine 1+ (Negative); Nitrite Urine Negative (Negative); Protein Urine Negative (Negative); RBC Urine Automated 0-4 /hpf (0-4); Specific Gravity Urine 1.012 (1.000-1.030); Urobilinogen Urine Negative (Negative); pH Urine 7.5 (4.5-7.5)
[2023-06-13 23:38] LABS: Hematocrit (blood only) 38.6 % (37.0-47.0); Hemoglobin 12.4 g/dl (12.0-16.0); Immature Granulocytes # (auto) 0.03 K/uL (0.01-0.20); Immature Granulocytes % (auto) 0.6 %; Lymphocytes # (auto) 1.03 K/uL (1.20-3.40); Lymphocytes % (auto) 19.4 %; Mean Corpuscular Hemoglobin 28.5 pg (25.0-34.0); Mean Corpuscular Hgb Conc 32.1 g/dL (32.0-36.0); Mean Corpuscular Volume 88.7 fL (80.0-100.0); Mean Platelet Volume 9.1 fL (9.4-12.4); Monocytes # (auto) 0.71 K/uL (0.11-0.59); Monocytes % (auto) 13.4 %; Neutrophils # (auto) 3.54 K/uL (1.40-6.50); Neutrophils % (auto) 66.6 %; Platelet Count 207 K/uL (130-400); RDW Coefficient of Variation 14.6 % (11.5-14.5); RDW Standard Deviation 47.8 fL (36.4-46.3); Red Blood Count 4.35 M/uL (4.20-5.40); White Blood Count 5.31 K/ul (4.8-10.8)
[2023-06-13 23:52] LABS: Albumin Level 4.3 gm/dl (3.4-5.0); BUN Creatinine Ratio 7.8 (10-20); Bilirubin,Total 0.2 mg/dl (0.2-1.0); Calcium 9.1 mg/dl (8.6-10.3); Creatinine Clr Calc Pharmacy 40.3 ml/min; Est GFR (African American) 46.9 ml/min; Est GFR (Non-African American) 40.5 ml/min; Magnesium 1.9 mg/dl (1.7-2.4); Potassium 4.1 mmol/L (3.5-5.1)
[2023-06-13 23:58] LABS: Troponin I High Sensitivity 5.6 pg/ml (0-14)
[2023-06-14] MEDS: CEFEPIME 2,000 MG/20 ML VIAL IV STA (00:48)
[2023-06-14 01:03] LABS: Adenovirus PCR Not Detected (NotDetected); Bordetella parapertussis PCR Not Detected (NotDetected); Bordetella pertussis PCR Not Detected (NotDetected); Chlamydia pneumoniae PCR Not Detected (NotDetected); Coronavirus 229E PCR Not Detected (NotDetected); Coronavirus CoV-2 (COVID19)PCR Not Detected (NotDetected); Coronavirus HKU1 PCR Not Detected (NotDetected); Coronavirus NL63 PCR Not Detected (NotDetected); Coronavirus OC43PCR Not Detected (NotDetected); Human Metapneumovirus PCR Not Detected (NotDetected); Influenza A (H3) PCR DETECTED (NotDetected); Influenza B PCR Not Detected (NotDetected); Mycoplasma pneumoniae PCR Not Detected (NotDetected); Parainfluenza Virus 1 PCR Not Detected (NotDetected); Parainfluenza Virus 2 PCR Not Detected (NotDetected); Parainfluenza Virus 3 PCR Not Detected (NotDetected); Parainfluenza Virus 4 PCR Not Detected (NotDetected); Respiratory Syncytial VirusPCR Not Detected (NotDetected); Rhinovirus/Enterovirus PCR Not Detected (NotDetected)
[2023-06-14] MEDS: SODIUM CHLORIDE 0.9% 500 ML IV SCH (02:32)
[2023-06-14] MEDS: SODIUM CHLORIDE 0.9% 500 ML IV ONE (02:32)
--- NOTE | 2023-06-14 03:56 | History & Physical Report ---
Date of Service June 14, 2023 Assessment & Plan (1) Influenza: Plan: 77-year-old female with past medical history significant for hyperlipidemia, hypothyroidism, hypertension, moderate mitral regurgitation, fatty liver, GERD, chronic interstitial cystitis, CKD stage III, postmastectomy lymphedema syndrome, polyneuropathy following chemotherapy, bipolar disorder ,depression, mild cognitive impairment, history of breast cancer, who lives at home with with her comes because of ongoing weakness and cough. Patient states since last Wednesday she is having a lot of cough. And progressively getting weaker. And yesterday she could not even get up and ambulate . This reason she was brought in here. Denies any fevers. Feeling weak. No headache. She has on and off double vision and attributes them to dry eyes. No runny nose. No sore throat. Appetite is okay. Denies any chest pain or shortness of breath. No abdominal pain. No diarrhea or constipation. Normal micturition. Hemodynamics are okay. Workup showed influenza positive and also UTI Influenza Having cough Droplet precautions Supportive care Tamiflu UTI Empiric Rocephin Will follow cultures History of hypertension On amlodipine, atenolol, Lasix, losartan Will monitor History of hyperlipidemia On statin Hypothyroidism On Synthyroid Bipolar disorder Depression On buspirone, Lamictal, lithium carbonate, trazodone and Ativan as needed Follow lithium levels CKD stage III Current creatinine 1.2 Seems around baseline Follow repeat labs History of breast cancer S/p mastectomy and chemotherapy Double vision? on and off will get ct head. consider optho consult. DVT prophylaxis Heparin subcu Disposition Medical floor Full code History of Present Illness Chief Complaint: Weakness and cough Primary Care Provider: Dav Hargrove MD 77-year-old female with past medical history significant for hyperlipidemia, hypothyroidism, hypertension, moderate mitral regurgitation, fatty liver, GERD, chronic interstitial cystitis, CKD stage III, postmastectomy lymphedema syndrome, polyneuropathy following chemotherapy, bipolar disorder ,depression, mild cognitive impairment, history of breast cancer, who lives at home with with her comes because of ongoing weakness and cough. Patient states since last Wednesday she is having a lot of cough. And progressively getting weaker. And yesterday she could not even get up and ambulate . This reason she was brought in here. Denies any fevers. Feeling weak. No headache. She has on and off double vision and attributes them to dry eyes. No runny nose. No sore throat. Appetite is okay. Denies any chest pain or shortness of b reath. No abdominal pain. No diarrhea or constipation. Normal micturition. Hemodynamics are okay. Past medical history. As mentioned above Past surgical history. Bilateral knee arthroplasty left breast open biopsy. Left axilla lymph node dissection. Cervical hemilaminectomy, colonoscopy, cystoscopy, EGD, EGD with endoscopic ultrasound, low back surgery, neck surgery, several surgeries for cervical fusions. Right total shoulder surgery. Nasal polypectomy. Laparoscopic cholecystectomy. Cataract surgery. Social history. . No smoking. No alcohol use. No drug use. Family history. Mother had dementia. Hypertension. Father had diabetes. Allergies Allergy/AdvReac Type Severity Reaction Status Date / Time ciprofloxacin Allergy Intermediate HIVES Verified 12/09/22 13:37 metronidazole Allergy Intermediate hives Verified 12/09/22 13:37 Sulfa (Sulfonamide Allergy Intermediate HIVES Verified 12/09/22 13:37 Antibiotics) baclofen AdvReac Severe NEURO Verified 12/09/22 13:37 SYMPTOMS pantoprazole AdvReac Mild migraines Verified 12/09/22 13:37 zolpidem AdvReac Mild delusions Verified 12/09/22 13:37 Home Medications Medication Instructions Recorded Confirmed Type aspirin 81 mg tablet,delayed 81 mg PO QAM #0 tabs 11/17/11 06/14/23 History release (Juanjo Low Dose Aspirin) levothyroxine 125 mcg tablet 125 mcg PO QAM ##0 02/04/13 06/14/23 History atenolol 50 mg tablet 50 mg PO QAM ##0 05/24/14 06/14/23 History qfdtikvb-vuhmmbsmo-sazbmadwe 3.5 1 drp otic (ear) 2XWK ##0 05/24/14 06/14/23 History mg/mL-10,000 unit/mL-1 % ear solution pravastatin 80 mg tablet 80 mg PO HS ##0 05/24/14 06/14/23 History multivitamin (Multiple Vitamins 1 tab PO QPM #0 tabs 04/22/15 06/14/23 History tablet) cranberry extract 300 mg tablet 300 mg PO BID ##0 07/07/16 06/14/23 History gabapentin 300 mg capsule 300 mg PO TID #0 caps 07/07/16 06/14/23 History omeprazole magnesium 20 mg 20 mg PO BID #0 caps 07/07/16 06/14/23 History capsule,delayed release ascorbic acid (vitamin C) 1,000 mg 1 g PO BID ##0 12/03/16 06/14/23 History tablet calcium carbonate 500 mg-vitamin 1 tab PO BID ##0 12/03/16 06/14/23 History D3 5 mcg (200 unit) tablet (Calcium 500 + D) fluticasone propionate 50 2 spray intranasal AMPM ##0 12/03/16 06/14/23 History mcg/actuation nasal spray,suspension lamotrigine 150 mg tablet 150 mg PO AMHS #0 tabs 03/28/17 06/14/23 History (Lamictal) lorazepam 1 mg tablet 1 mg PO UD PRN Anxiety #0 tabs 03/28/17 06/14/23 History dicyclomine 20 mg tablet 20 mg PO QID ##0 07/01/17 06/14/23 History ipratropium bromide 21 mcg (0.03 2 spray intranasal QID ##0 07/01/17 06/14/23 History %) nasal spray light mineral oil 1 %-mineral oil 2 drp ophthalmic (eye) BID 01/26/18 06/14/23 History 4.5 % eye drops (Soothe XP) meclizine 25 mg tablet 50 mg PO TID PRN Dizziness 01/26/18 06/14/23 History ondansetron HCl 8 mg tablet 8 mg PO Q8 PRN Nausea 01/26/18 06/14/23 History simethicone 80 mg chewable tablet 80 mg PO BID PRN Stomach Upset 01/26/18 06/14/23 History (Gas Relief 80 (simethicone)) famotidine 40 mg tablet 40 mg PO QAM 02/08/20 06/14/23 History trazodone 100 mg tablet 200 mg PO HS 02/08/20 06/14/23 History amlodipine 10 mg tablet 10 mg PO QAM 05/21/20 06/14/23 History pilocarpine HCl 5 mg tablet 5 mg PO TID 05/21/20 06/14/23 History (Salagen (pilocarpine)) cetirizine 10 mg capsule (Zyrtec) 10 mg PO QAM 09/24/20 06/14/23 History lithium carbonate 300 mg tablet 300 mg PO HS 05/23/21 06/14/23 History promethazine 25 mg tablet 25 mg PO Q4H PRN Nausea 07/30/21 06/14/23 History cyanocobalamin (vitamin B-12) 100 100 mcg PO QAM 12/29/21 06/14/23 History mcg tablet (Vitamin B-12) buspirone 7.5 mg tablet 7.5 mg PO TID 06/14/23 06/14/23 History cyclosporine 0.05 % eye drops in a 1 drp OPB BID 06/14/23 06/14/23 History dropperette (Restasis) furosemide 20 mg tablet 20 mg PO QAM 06/14/23 06/14/23 History losartan 100 mg tablet 100 mg PO QAM 06/14/23 06/14/23 History tramadol 50 mg tablet 50 - 100 mg PO Q4 PRN pain 06/14/23 06/14/23 History Past Med/Surg History Medical History Anxiety Aspiration pneumonia 2017, suspected to be d/t GI upset, [facility] hospitalization 10/19/21, acid reflux spell, no hospitalization Asthma Stable C. difficile diarrhea chronic, on vancomycin for suppressive therapy, follows with [facility] GI Chronic kidney disease (CKD), stage III (moderate) CVA (cerebral vascular accident) old lacunar infarct in R cerebellar hemisphere noted on 05/2020 MRI brain Depression Fatty liver GERD (gastroesophageal reflux disease) History of bipolar disorder History of breast cancer s/p chemo and radiation--left side History of COVID-19 diagnosed 01/2021--sinus issue, no hospitalization--no issues now Hyperlipidemia Hypertension Hypothyroidism Leukocytosis Limb alert care status LUE restriction r/t lymphedema Lumbar stenosis with neurogenic claudication Lymphedema Mild cognitive impairment per [facility] records Mitral valve posterior leaflet prolapse 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 per 05/2020 echo TIA (transient ischemic attack) 2017, no deficits, no neurologist Surgical History H/O colonoscopy H/O cystoscopy H/O dilation and curettage History of bilateral tubal ligation History of breast surgery History of cardiac cath 2016 > no stents History of cataract surgery R/L History of esophagogastroduodenoscopy (EGD) History of foot surgery right History of fusion of cervical spine x2--very limited with ROM History of lumbar spinal fusion x4 History of lymph node dissection of left axilla 03/14/2013- Left axillary lymph node dissection History of removal of Port-a-Cath History of total right knee replacement (TKR) History of vascular access device Port for chemo, later removed Status post total left knee replacement Family History Other No family history of adverse response to anesthesia Social History Smoking Status: Never smoker Second Hand Exposure: No; Do You Dip or Chew Tobacco: No; Hx Alcohol Use: No Hx Substance Use: No Preferred Language: Afghan Communication Ability: Effective Planting Material Remover Required: No Beliefs That Will Affect Care: None marital status: Current Living Situation: Spouse Current Living Situation Comment: Patient states she lives at home with (Luis Fernando) How many Children do You have: 0 Feels Safe at Home: Yes Safety Concerns: Feels Safe At This Time Assistive Devices: None Review of Systems Review of Systems: All systems reviewed & are unremarkable except as noted in HPI & below Physical Exam Physical Exam: General- Not in distress Head- atraumatic Eyes- PERRL, ENT- oropharynx clear Neck- supple, no JVD Lungs- clear to auscultation no wheezing or crackles Heart- regular rhythm; no murmur, no gallop. Abdomen- normal bowel sounds, soft, nontender, no distension Extremities- no pretibial edema, no erythema seen Neuro- alert, oriented x 3; PERRL, no facial palsy; no dysarthria; moves extremities. Skin- warm & dry Results & Data Results & Data Vital Signs (Past 12 Hours) Vital Signs Temp Pulse Pulse Resp BP BP Pulse Ox 06/14/23 03:30 75 21 98 06/14/23 03:30 130/67 06/14/23 03:00 105/57 L 06/14/23 03:00 78 23 100 06/14/23 02:30 78 21 115/60 97 06/14/23 02:30 76 21 98 06/14/23 02:30 115/60 06/14/23 02:00 76 24 98 06/14/23 02:00 106/57 L 06/14/23 01:30 71 20 98 06/14/23 01:30 119/67 06/14/23 01:00 112/62 06/14/23 01:00 76 19 98 06/14/23 00:30 68 20 100/58 L 96 06/14/23 00:30 68 17 96 06/14/23 00:30 100/58 L 06/14/23 00:00 71 20 95 06/14/23 00:00 98/60 L 06/13/23 23:30 114/62 06/13/23 23:30 75 20 94 06/13/23 23:16 73 20 94 06/13/23 23:11 115/76 06/13/23 23:11 92 06/13/23 23:09 89 L 06/13/23 22:44 84 06/13/23 22:40 36.7 C 84 17 102/64 92 06/13/23 22:39 74 20 114/62 93 O2 Del Method O2 Flow Rate 06/14/23 03:30 Nasal Cannula 2 06/14/23 03:30 06/14/23 03:00 06/14/23 03:00 Nasal Cannula 2 06/14/23 02:30 Nasal Cannula 2 06/14/23 02:30 Nasal Cannula 2 06/14/23 02:30 06/14/23 02:00 Nasal Cannula 2 06/14/23 02:00 06/14/23 01:30 Nasal Cannula 2 06/14/23 01:30 06/14/23 01:00 06/14/23 01:00 Nasal Cannula 2 06/14/23 00:30 Nasal Cannula 2 06/14/23 00:30 Nasal Cannula 2 06/14/23 00:30 06/14/23 00:00 Nasal Cannula 2 06/14/23 00:00 06/13/23 23:30 06/13/23 23:30 Nasal Cannula 2 06/13/23 23:16 Nasal Cannula 2 06/13/23 23:11 06/13/23 23:11 Nasal Cannula 2 06/13/23 23:09 Room Air 06/13/23 22:44 06/13/23 22:40 Room Air 06/13/23 22:39 Nasal Cannula 2 Diagnostic Findings Laboratory Results WBC 5.31 K/ul (4.8-10.8) 06/13/23 23:16 RBC 4.35 M/uL (4.20-5.40) 06/13/23 23:16 Hgb 12.4 g/dl (12.0-16.0) 06/13/23 23:16 Hct 38.6 % (37.0-47.0) 06/13/23 23:16 MCV 88.7 fL (80.0-100.0) 06/13/23 23:16 MCH 28.5 pg (25.0-34.0) 06/13/23 23:16 MCHC 32.1 g/dL (32.0-36.0) 06/13/23 23:16 RDW Std Deviation 47.8 fL (36.4-46.3) H 06/13/23 23:16 RDW Coeff of [place] 14.6 % (11.5-14.5) H 06/13/23 23:16 Plt Count 207 K/uL (130-400) 06/13/23 23:16 MPV 9.1 fL (9.4-12.4) L 06/13/23 23:16 Immature Gran % (Auto) 0.6 % 06/13/23 23:16 Neut % (Auto) 66.6 % 06/13/23 23:16 Lymph % (Auto) 19.4 % 06/13/23 23:16 [place] % (Auto) 13.4 % 06/13/23 23:16 Eos % (Auto) 0.0 % 06/13/23 23:16 Baso % (Auto) 0.0 % 06/13/23 23:16 Neut # (Auto) 3.54 K/uL (1.40-6.50) 06/13/23 23:16 Lymph # (Auto) 1.03 K/uL (1.20-3.40) L 06/13/23 23:16 [place] # (Auto) 0.71 K/uL (0.11-0.59) H 06/13/23 23:16 Eos # (Auto) 0.00 K/uL (0.00-0.50) 06/13/23 23:16 Baso # (Auto) 0.00 K/uL (0.00-0.20) 06/13/23 23:16 Immature Gran # (Auto) 0.03 K/uL (0.01-0.20) 06/13/23 23:16 Sodium 137 mmol/L (136-145) 06/13/23 23:16 Potassium 4.1 mmol/L (3.5-5.1) 06/13/23 23:16 Chloride 104 mmol/L (98-107) 06/13/23 23:16 Carbon Dioxide 25 mmol/L (21-32) 06/13/23 23:16 Anion Gap 8 (3-11) 06/13/23 23:16 BUN 10 mg/dl (6-23) 06/13/23 23:16 Creatinine 1.29 mg/dl (0.6-1.2) H 06/13/23 23:16 Est Cr Clr Drug Dosing 40.3 ml/min 06/13/23 23:16 Est GFR ( Amer) 46.9 ml/min 06/13/23 23:16 Est GFR (Non-Af Amer) 40.5 ml/min 06/13/23 23:16 BUN/Creatinine Ratio 7.8 (10-20) L 06/13/23 23:16 Glucose 120 mg/dl (70-99(Fasting)) H 06/13/23 23:16 Lactate 1.8 mmol/L (0.4-2.0) 06/13/23 23:16 Calcium 9.1 mg/dl (8.6-10.3) 06/13/23 23:16 Magnesium 1.9 mg/dl (1.7-2.4) 06/13/23 23:16 Total Bilirubin 0.2 mg/dl (0.2-1.0) 06/13/23 23:16 Direct Bilirubin 0.0 mg/dl (0-0.2) 06/13/23 23:16 AST 16 U/L (13-39) 06/13/23 23:16 ALT 12 U/L (7-52) 06/13/23 23:16 Alkaline Phosphatase 64 U/L (34-104) 06/13/23 23:16 Troponin I High Sens 5.6 pg/ml (0-14) 06/13/23 23:16 Total Protein 7.0 gm/dl (6.0-8.3) 06/13/23 23:16 Albumin 4.3 gm/dl (3.4-5.0) 06/13/23 23:16 Procalcitonin 0.11 ng/ml (0-0.5) 06/13/23 23:16 Urine Color Yellow 06/13/23 23:16 Urine Appearance Clear (Clear) 06/13/23 23:16 Urine pH 7.5 (4.5-7.5) 06/13/23 23:16 Ur Specific [place] 1.012 (1.000-1.030) 06/13/23 23:16 Urine Protein Negative (Negative) 06/13/23 23:16 Urine Glucose (UA) Negative (Negative) 06/13/23 23:16 Urine Ketones Negative (Negative) 06/13/23 23:16 Urine Blood Negative (Negative) 06/13/23 23:16 Urine Nitrite Negative (Negative) 06/13/23 23:16 Urine Bilirubin Negative (Negative) 06/13/23 23:16 Urine Urobilinogen Negative (Negative) 06/13/23 23:16 Ur Leukocyte Esterase 1+ (Negative) H 06/13/23 23:16 Urine WBC (Auto) 10-30 /hpf (0-5) H 06/13/23 23:16 Urine RBC (Auto) 0-4 /hpf (0-4) 06/13/23 23:16 U Hyaline Cast (Auto) 0 /lpf (0-5) 06/13/23 23:16 U Epithel Cells (Auto) 0-5 /lpf (0-5) 06/13/23 23:16 Urine Bacteria (Auto) 3+ (Negative) H 06/13/23 23:16 Adenovirus (PCR) Not Detected (NotDetected) 06/13/23 23:34 B. pertussis DNA (PCR) Not Detected (NotDetected) 06/13/23 23:34 B.parapertussis DNA PCR Not Detected (NotDetected) 06/13/23 23:34 C. pneumoniae DNA (PCR) Not Detected (NotDetected) 06/13/23 23:34 Coronavirus OC43 (PCR) Not Detected (NotDetected) 06/13/23 23:34 Coronavirus HKU1 (PCR) Not Detected (NotDetected) 06/13/23 23:34 Coronavirus 229E (PCR) Not Detected (NotDetected) 06/13/23 23:34 SARS-CoV-2 (PCR) Not Detected (NotDetected) 06/13/23 23:34 Coronavirus NL63 (PCR) Not Detected (NotDetected) 06/13/23 23:34 Human Metapneumovir PCR Not Detected (NotDetected) 06/13/23 23:34 Influenza A (H3) PCR DETECTED (NotDetected) A 06/13/23 23:34 Influenza Type B (PCR) Not Detected (NotDetected) 06/13/23 23:34 M. pneumoniae (PCR) Not Detected (NotDetected) 06/13/23 23:34 Parainfluenza 1 (PCR) Not Detected (NotDetected) 06/13/23 23:34 Parainfluenza 2 (PCR) Not Detected (NotDetected) 06/13/23 23:34 Parainfluenza 3 (PCR) Not Detected (NotDetected) 06/13/23 23:34 Parainfluenza 4 (PCR) Not Detected (NotDetected) 06/13/23 23:34 RSV (PCR) Not Detected (NotDetected) 06/13/23 23:34 Entero/Rhino (PCR) Not Detected (NotDetected) 06/13/23 23:34 ECG Additional Comments: ECG. Normal sinus rhythm rate of 78. Nonspecific T wave abnormalities. Code Status & VTE Plan VTE Prophylaxis Plan VTE Prophylaxis will be ordered: Yes
[2023-06-14] MEDS ORDERED: traMADol HCL 50 MG TABLET PO PRN (06:52)
[2023-06-14] MEDS ORDERED: MECLIZINE HCL 25 MG TAB PO PRN (06:52)
[2023-06-14] MEDS ORDERED: LORazepam 1 MG TAB PO PRN (06:52)
--- NOTE | 2023-06-14 06:57 | XRay Report ---
XR chest 1V portable CLINICAL HISTORY: Sepsis TECHNIQUE: Single frontal radiograph of the chest was obtained. Comparison: Comparison is made to chest radiograph 02/02/2023 FINDINGS: No lines and tubes are seen. Calcified aortic knob is seen. The lungs are clear. No evidence of pleur al effusion or pneumothorax. IMPRESSION: No acute abnormalities and in particular no radiographic evidence of pneumonia. ACT 112: Negative or not required by law. Electronically signed by: Pb Julio M.D. 06/14/2023 6:55 AM
[2023-06-14] MEDS: ACETAMINOPHEN 325 MG TAB PO PRN (07:36)
[2023-06-14] MEDS: SODIUM CHLORIDE 0.9% 1,000 ML IV SCH (07:37)
[2023-06-14] MEDS ORDERED: ARTIFICIAL TEARS OP PRN (07:44)
--- NOTE | 2023-06-14 08:23 | Electrocardiogram Report ---
Test Reason : Blood Pressure : / mmHG Vent. Rate : 078 BPM Atrial Rate : 078 BPM P-R Int : 184 ms QRS Dur : 076 ms QT Int : 424 ms P-R-T Axes : 055 003 057 degrees QTc Int : 483 ms Normal sinus rhythm Possible Old Anterior infarct (cited on or before 31-JAN-2023) Diffuse Minor Nonspecific T wave abnormality Abnormal ECG When compared with ECG of 31-JAN-2023 20:18, Vent. rate has decreased BY 64 BPM Nonspecific T wave abnormality now present Confirmed by Dav Quintanilla ([id number]) on 06/14/2023 8:23:08 AM Referred By: REFERRED SELF Confirmed By:Dav Quintanilla
[2023-06-14] MEDS: LEVOTHYROXINE SODIUM 125 MCG TABLET PO SCH (08:33)
[2023-06-14] MEDS: ASCORBIC ACID 500 MG TAB PO SCH (08:33)
[2023-06-14] MEDS: OSELTAMIVIR PHOSPHATE 75 MG CAP PO STA (08:33)
[2023-06-14] MEDS: lamoTRIgine 100 MG TAB PO SCH (08:34)
[2023-06-14] MEDS: GABAPENTIN 300 MG CAP PO SCH (08:35)
[2023-06-14] MEDS: CALCIUM 600MG + VIT D 400 IU TAB PO SCH (08:35)
[2023-06-14] MEDS: CETIRIZINE HCL 10 MG TABLET PO SCH (08:35)
[2023-06-14] MEDS: ASPIRIN 81 MG ECTAB PO SCH (08:35)
[2023-06-14] MEDS: PILOCARPINE HCL 5 MG TABLET PO SCH (08:35)
[2023-06-14] MEDS: amLODIPine BESYLATE 5 MG TAB PO SCH (08:35)
[2023-06-14] MEDS: PANTOprazole 40 MG TAB PO SCH (08:35)
[2023-06-14] MEDS: LOSARTAN POTASSIUM 50 MG TAB PO SCH (08:36)
[2023-06-14] MEDS: busPIRone 7.5 MG TAB PO SCH (08:36)
[2023-06-14] MEDS: CYANOCOBALAMIN (B-12) 100 MCG TABLET PO SCH (08:36)
[2023-06-14] MEDS: FUROSEMIDE 20 MG TAB PO SCH (08:36)
[2023-06-14] MEDS: DICYCLOMINE HCL 20 MG TAB PO SCH (08:37)
[2023-06-14] MEDS: FAMOTIDINE 40 MG TABLET PO SCH (08:37)
[2023-06-14] MEDS: ATENOLOL 50 MG TABLET PO SCH (08:37)
[2023-06-14] MEDS: IPRATROPIUM BROMIDE NASAL SPRAY 0.06% 15ML NAE SCH (08:39)
[2023-06-14] MEDS: FLUTICASONE PROPIONATE NA SPR 16 GM BTL SCH (08:40)
[2023-06-14] MEDS: HEPARIN SOD 5,000 UNIT/0.5 ML VIAL SQ SCH (08:41)
[2023-06-14 08:56] LABS: Hematocrit (blood only) 36.6 % (37.0-47.0); Hemoglobin 11.4 g/dl (12.0-16.0); Immature Granulocytes # (auto) 0.03 K/uL (0.01-0.20); Immature Granulocytes % (auto) 0.8 %; Lymphocytes # (auto) 0.93 K/uL (1.20-3.40); Lymphocytes % (auto) 24.9 %; Mean Corpuscular Hemoglobin 28.1 pg (25.0-34.0); Mean Corpuscular Hgb Conc 31.1 g/dL (32.0-36.0); Mean Corpuscular Volume 90.1 fL (80.0-100.0); Mean Platelet Volume 8.9 fL (9.4-12.4); Monocytes # (auto) 0.44 K/uL (0.11-0.59); Monocytes % (auto) 11.8 %; Neutrophils # (auto) 2.33 K/uL (1.40-6.50); Neutrophils % (auto) 62.5 %; Platelet Count 194 K/uL (130-400); RDW Standard Deviation 49.5 fL (36.4-46.3); Red Blood Count 4.06 M/uL (4.20-5.40); White Blood Count 3.73 K/ul (4.8-10.8)
[2023-06-14] MEDS ORDERED: LIGHT MINERAL OIL MINERAL OIL OP SCH (09:00)
[2023-06-14 09:11] LABS: BUN Creatinine Ratio 8.3 (10-20); Calcium 8.3 mg/dl (8.6-10.3); Est GFR (African American) 50.7 ml/min; Est GFR (Non-African American) 43.7 ml/min; Potassium 4.5 mmol/L (3.5-5.1)
--- NOTE | 2023-06-14 09:36 | CT Scan Report ---
CT head/brain wo con CLINICAL HISTORY: double vision? Technique: Contiguous axial CT images of the head were acquired from the base of the skull to the igor giovani without intravenous contrast administration. Images were viewed in brain, subdural and bone [facility]. Automated dose lowering techniques and/or adjustment according to patient size were utilized for this exam. Comparison: Comparison is made to CT head 12/31/2021 Findings: The ventricles, basal cisterns, and cerebral sulci are normal. There is no acute intracranial hemorrh age or evidence of acute territorial infarction. Neither mass effect, shift of the midline structures , nor abnormal extra-axial fluid collections are shown. Imaged portions of the paranasal sinuses and mastoid air cells are clear. The orbits appear normal. There are no acute fractures of the calvaria or scalp swelling. Impression: No acute intracranial hemorrhage, no evidence of acute territorial infarction or other acute intracra nial disease process. ACT 112: Negative or not required by law. Electronically signed by: Pb Julio M.D. 06/14/2023 9:35 AM
[2023-06-14] MEDS: cefTRIAXone SODIUM 2,000 MG in DEXTROSE 5 % MINI-B 50 ML IV SCH (10:11)
--- NOTE | 2023-06-14 16:03 | Hospitalist Progress Note ---
Date of Service June 14, 2023 Assessment & Plan (1) Influenza: Plan: 77-year-old female with past medical history significant for hyperlipidemia, hypothyroidism, hypertension, moderate mitral regurgitation, fatty liver, GERD, chronic interstitial cystitis, CKD stage III, postmastectomy lymphedema syndrome, polyneuropathy following chemotherapy, bipolar disorder ,depression, mild cognitive impairment, history of breast cancer, who lives at home with with her comes because of ongoing weakness and cough. Patient states since last Wednesday she is having a lot of cough. And progressively getting weaker. And yesterday she could not even get up and ambulate . This reason she was brought in here. Denies any fevers. Feeling weak. No headache. She has on and off double vision and attributes them to dry eyes. No runny nose. No sore throat. Appetite is okay. Denies any chest pain or shortness of breath. No abdominal pain. No diarrhea or constipation. Normal micturition. Hemodynamics are okay. Workup showed influenza positive and also UTI Influenza A Having cough and wheezing but no shortness of breath Droplet precautions Supportive care Has been on Tamiflu Tamiflu Clinically better today and will continue current management Denies any respiratory symptoms UTI Empiric Rocephin Will follow cultures-pending Gets very weak and lethargic with any UTI Urine culture is growing gram-negative bacilli further identification and sensitivity are pending Generalized weakness Usually gets weak with UTI but this time seems to be complicated by influenza Will get PT and OT evaluation- History of hypertension On amlodipine, atenolol, Lasix, losartan Blood pressure remains controlled History of hyperlipidemia On statin Hypothyroidism On Synthyroid Bipolar disorder Depression On buspirone, Lamictal, lithium carbonate, trazodone and Ativan as needed Follow lithium levels--remains borderline low at 0.5 Will not make any change of the doses CKD stage III Current creatinine 1.2 Seems around baseline Follow repeat labs History of breast cancer S/p mastectomy and chemotherapy Double vision? on and off will get ct head.-Has been negative Denies any double vision this morning If the symptoms persist she will need to have an outpatient ophthalmologic evaluation DVT prophylaxis Heparin subcu Disposition Medical floor Full code Admission and Anticipated Discharge Date Admission Date: June 14, 2023 Subjective 06/14/2023 The patient was seen and examined in medical floor She has been feeling little better since admission Cough has improved but the weakness is persisting 06/15/2023 The patient was seen and examined in medical floor She has been feeling much better but remains weak Denies any cough and no shortness of breath She will have PT and OT evaluation prior to discharge Review of Systems Review of Systems: All systems reviewed and are unremarkable except as noted below Physical Exam Physical Exam: Lying in bed without any acute distress Constitutional: well developed, well nourished, + ill appearing and average body habitus Eyes: PERRL, conjunctivae normal, anicteric sclerae ENMT: external ear and nose normal, oropharynx normal Neck: trachea midline, no thyromegaly Respiratory: no respiratory distress Auscultation: + diminished lung sounds and + crackles (Minimal crackles bilaterally) Cardiovascular: Rate/Rhythm: regular rate and regular rhythm; not tachycardic Heart Sounds: normal S1 and normal S2; no murmur Extremities: + edema (Trace edema bilaterally) Gastrointestinal (Abdomen): Inspection/Auscultation: normal bowel sounds; abdomen not distended Percussion/Palpation: abdomen soft; abdomen nontender Musculoskeletal: No acute arthritis involving any of the joint Neurologic: normal touch/pain/proprioception and moves all extremities; no focal motor deficits Psychiatric: A+Ox3, euthymic affect Lymphatic: no cervical or axillary lymphadenopathy Results & Data Results & Data Vital Signs (Past 12 Hours) Vital Signs Temp Pulse Pulse Pulse Pulse Resp BP 06/14/23 15:13 37.1 C 68 16 06/14/23 12:55 37.4 C 18 06/14/23 11:38 65 18 06/14/23 11:37 06/14/23 10:15 06/14/23 08:50 06/14/23 07:37 37.9 C H 06/14/23 07:20 38.7 C H 83 16 06/14/23 06:29 06/14/23 06:10 38.3 C H 83 15 06/14/23 05:14 06/14/23 05:00 77 18 06/14/23 04:00 74 22 06/14/23 04:00 122/66 BP Pulse Ox O2 Del Method O2 Flow Rate 06/14/23 15:13 113/69 97 Nasal Cannula 1 06/14/23 12:55 98 Nasal Cannula 1 06/14/23 11:38 95 Nasal Cannula 2 03/04/24 11:37 88 L Room Air 06/14/23 10:15 90 Room Air 06/14/23 08:50 Nasal Cannula 2 06/14/23 07:37 06/14/23 07:20 135/66 95 Nasal Cannula 2 06/14/23 06:29 Nasal Cannula 2 06/14/23 06:10 143/72 H 96 Nasal Cannula 2 06/14/23 05:14 Nasal Cannula 2 06/14/23 05:00 131/69 98 Nasal Cannula 2 06/14/23 04:00 98 Nasal Cannula 2 06/14/23 04:00 Laboratory Results Short CBC 06/13/23 06/14/23 Range/Units 23:16 08:34 WBC 5.31 3.73 L (4.8-10.8) K/ul Hgb 12.4 11.4 L (12.0-16.0) g/dl Hct 38.6 36.6 L (37.0-47.0) % Plt Count 207 194 (130-400) K/uL BMP 06/13/23 06/14/23 23:16 08:34 Sodium 137 139 Potassium 4.1 4.5 Chloride 104 107 Carbon Dioxide 25 26 BUN 10 10 Creatinine 1.29 H 1.21 H Glucose 120 H 97 Calcium 9.1 8.3 L Liver Function 06/13/23 Range/Units 23:16 Total Bilirubin 0.2 (0.2-1.0) mg/dl Direct Bilirubin 0.0 (0-0.2) mg/dl AST 16 (13-39) U/L ALT 12 (7-52) U/L Alkaline Phosphatase 64 (34-104) U/L Albumin 4.3 (3.4-5.0) gm/dl Urine 06/13/23 Range/Units 23:16 Urine Color Yellow Urine Appearance Clear (Clear) Urine pH 7.5 (4.5-7.5) Ur Specific [place] 1.012 (1.000-1.030) Urine Protein Negative (Negative) Urine Glucose (UA) Negative (Negative) Medications Administered Current Inpatient Medications Acetaminophen (Acetaminophen 325 Mg Tab) 650 mg PO Q4H PRN PRN Reason: pain/fever Stop: 07/14/23 06:51 Last Admin: 06/14/23 07:36 Dose: 650 mg Amlodipine Besylate (Amlodipine Besylate 5 Mg Tab) 10 mg PO QAM [facility] Stop: 07/14/23 08:59 Last Admin: 06/14/23 08:35 Dose: 10 mg Artificial Tears (Artificial Tears) 1 drops OP QID PRN PRN Reason: Dryness Stop: 07/14/23 07:43 Ascorbic Acid (Ascorbic Acid 500 Mg Tab) 1,000 mg PO BID [facility] Stop: 07/14/23 08:59 Last Admin: 06/14/23 08:33 Dose: 1,000 mg Aspirin (Aspirin 81 Mg Ectab) 81 mg PO QAM [facility] Stop: 07/14/23 08:59 Last Admin: 06/14/23 08:35 Dose: 81 mg Atenolol (Atenolol 50 Mg Tablet) [facility] [place] [place] Stop: 07/14/23 08:59 Last Admin: 06/14/23 08:37 Dose: 50 mg Buspirone HCl (Buspirone 7.5 Mg Tab) 7.5 mg PO TID [facility] Stop: 07/14/23 08:59 Last Admin: 06/14/23 12:56 Dose: 7.5 mg Calcium/Vitamin D (Calcium 600mg + Vit D 400 Iu Tab) 1 tab PO BID [facility] Stop: 07/14/23 08:59 Last Admin: 06/14/23 08:35 Dose: 1 tab Cetirizine HCl (Cetirizine Hcl 10 Mg Tablet) 10 mg PO QAM [facility] Stop: 07/14/23 08:59 Last Admin: 06/14/23 08:35 Dose: 10 mg Cyanocobalamin (Cyanocobalamin (B-12) 100 Mcg Tablet) 100 mcg [facility] [place] Stop: 07/14/23 08:59 Last Admin: 06/14/23 08:36 Dose: 100 mcg Dicyclomine HCl (Dicyclomine Hcl 20 Mg Tab) 20 mg PO QID [facility] Stop: 07/14/23 08:59 Last Admin: 06/14/23 12:56 Dose: 20 mg Famotidine (Famotidine 40 Mg Tablet) 40 mg PO QAM [facility] Stop: 07/14/23 08:59 Last Admin: 06/14/23 08:37 Dose: 40 mg Fluticasone Propionate (Fluticasone Propionate Na Spr 16 Gm Btl) 2 sprays NA BID [facility] Stop: 07/14/23 08:59 Last Admin: 06/14/23 08:40 Dose: 2 sprays Furosemide (Furosemide 20 Mg Tab) 20 mg PO QAM [facility] Stop: 07/14/23 08:59 Last Admin: 06/14/23 08:36 Dose: 20 mg Gabapentin (Gabapentin 300 Mg Cap) 300 mg PO TID [facility] Stop: 07/14/23 08:59 Last Admin: 06/14/23 12:56 Dose: 300 mg Heparin Sodium (Porcine) (Heparin Sod 5,000 Unit/0.5 Ml Vial) 5,000 units SQ Q12 [facility] Stop: 07/14/23 08:59 Last Admin: 06/14/23 08:41 Dose: 5,000 units Sodium Chloride (Nss) 1,000 mls @ 100 mls/hr IV .Q10H [facility] Stop: 06/14/23 16:51 Last Admin: 06/14/23 07:37 Dose: 100 mls/hr Ceftriaxone Sodium 2,000 mg/ (Dextrose) 50 mls @ 100 mls/hr IV Q24H [facility]; Protocol Stop: 06/24/23 09:59 Last Infusion: 06/14/23 10:50 Dose: Infused Ipratropium [place] (Ipratropium [place] Nasal [place] 0.06% 15ml) 1 sprays ALLI QID [facility] Stop: 07/14/23 08:59 Last Admin: 06/14/23 12:58 Dose: 1 sprays Lamotrigine (Lamotrigine 100 Mg Tab) 150 mg PO BID [facility] Stop: 07/14/23 08:59 Last Admin: 06/14/23 08:34 Dose: 150 mg Levothyroxine Sodium (Levothyroxine Sodium 125 Mcg Tablet) 125 mcg PO DAILYBB [facility] Stop: 07/14/23 07:29 Last Admin: 06/14/23 08:33 Dose: 125 mcg [place] Carbonate ([place] Carbonate 300 Mg Tab) 300 mg PO HS [facility] Stop: 07/14/23 20:59 Lorazepam (Lorazepam 1 Mg Tab) 1 mg PO DAILY PRN PRN Reason: Anxiety Stop: 07/14/23 06:51 Losartan Potassium (Losartan Potassium 50 Mg Tab) 100 mg PO QAM [facility] Stop: 07/14/23 08:59 Last Admin: 06/14/23 08:36 Dose: 100 mg Meclizine HCl (Meclizine Hcl 25 Mg Tab) 50 mg PO TID PRN PRN Reason: Dizziness Stop: 07/14/23 06:51 Multivitamins (Multivitamin Tab) 1 tab PO QPM [facility] Stop: 07/14/23 20:59 Neomycin/Polymyxin/Hydrocortisone (Neomycin/Polymyx/Hydrocort Ot Soln 10 Ml Btl) 1 drops OT WeSa@0900 [facility] Stop: 07/16/23 08:59 Ondansetron HCl (Ondansetron 4 Mg Od Tab) 8 mg PO Q8 PRN PRN Reason: Nausea Stop: 07/14/23 07:27 Oseltamivir Phosphate (Oseltamivir Phosphate Susp 30 Mg/5 Ml Udp) 30 mg PO BID [facility]; Protocol Stop: 06/19/23 20:59 Pantoprazole Sodium (Pantoprazole 40 Mg Tab) 40 mg PO BID [facility] Stop: 07/14/23 08:59 Last Admin: 06/14/23 08:35 Dose: 40 mg Pilocarpine HCl (Pilocarpine Hcl 5 Mg Tablet) 5 mg PO TID [facility] Stop: 07/14/23 08:59 Last Admin: 06/14/23 12:57 Dose: 5 mg Pravastatin Sodium (Pravastatin Sod 40 Mg Tab) 80 mg PO HS [facility] Stop: 07/14/23 20:59 Promethazine HCl (Promethazine Hcl 25 Mg Tab) 25 mg PO Q4H PRN PRN Reason: Nausea Stop: 07/14/23 06:51 Simethicone (Simethicone 80 Mg Chew) 80 mg PO BID PRN PRN Reason: Stomach Upset Stop: 07/14/23 06:51 Tramadol HCl (Tramadol Hcl 50 Mg Tablet) 50 mg PO Q4 PRN PRN Reason: pain Stop: 07/14/23 06:51 Trazodone HCl (Trazodone Hcl 100 Mg Tab) 200 mg PO HS [facility] Stop: 07/14/23 20:59
[2023-06-14] MEDS: OSELTAMIVIR PHOSPHATE SUSP 30 MG/5 ML UDP PO SCH (20:39)
[2023-06-14] MEDS: LITHIUM CARBONATE 300 MG TAB PO SCH (20:40)
[2023-06-14] MEDS: traZODone HCL 100 MG TAB PO SCH (20:41)
[2023-06-14] MEDS: PRAVASTATIN SOD 40 MG TAB PO SCH (20:42)
[2023-06-14] MEDS: MULTIVITAMIN TAB PO SCH (20:48)
[2023-06-15] MEDS: ONDANSETRON 4 MG OD TAB PO PRN (08:10)
[2023-06-15] MEDS: SIMETHICONE 80 MG CHEW PO PRN (12:26)
[2023-06-16] MEDS: NEOMYCIN/POLYMYX/HYDROCORT OT SOLN 10 ML BTL OT SCH (11:26)
--- NOTE | 2023-06-16 17:00 | Hospitalist Progress Note ---
Date of Service June 16, 2023 Assessment & Plan (1) Influenza: Plan: 77-year-old female with past medical history significant for hyperlipidemia, hypothyroidism, hypertension, moderate mitral regurgitation, fatty liver, GERD, chronic interstitial cystitis, CKD stage III, postmastectomy lymphedema syndrome, polyneuropathy following chemotherapy, bipolar disorder ,depression, mild cognitive impairment, history of breast cancer, who lives at home with with her comes because of ongoing weakness and cough. Patient states since last Wednesday she is having a lot of cough. And progressively getting weaker. And yesterday she could not even get up and ambulate . This reason she was brought in here. Denies any fevers. Feeling weak. No headache. She has on and off double vision and attributes them to dry eyes. No runny nose. No sore throat. Appetite is okay. Denies any chest pain or shortness of breath. No abdominal pain. No diarrhea or constipation. Normal micturition. Hemodynamics are okay. Workup showed influenza positive and also UTI Influenza A --CXR:No acute abnormalities and in particular no radiographic evidence of pneumonia. Droplet precautions Supportive care Continue Tamiflu UTI Urine culture growing Citrobacter, Proteus Blood cultures negative to date Received cefepime X1 dose Continue Rocephin Clinically improving Plan to transition to nitrofurantoin as able Generalized weakness Secondary to influenza, UTI Continue PT OT Hypertension Continue amlodipine, atenolol, Lasix, losartan Monitor BP History of hyperlipidemia Continue pravastatin Hypothyroidism Continue levothyroxine Bipolar disorder Depression Normal lithium level On buspirone, Lamictal, lithium carbonate, trazodone and Ativan as needed Continue home medications CKD stage III Cr at baseline Monitor renal function History of breast cancer S/p mastectomy and chemotherapy As per prior provider Double vision? --CT head:No acute intracranial hemorrhage, no evidence of acute territorial infarction or other acute intracranial disease process. Currently no issues Will need ophthalmology evaluation as outpatient DVT Px: Heparin SQ CODE STATUS Full code Admission and Anticipated Discharge Date Admission Date: June 14, 2023 Subjective Patient is seen and examined at bedside Less cough today Admits to have generalized weakness Denies any dysuria, hematuria Saturating well on room air No other complaints Review of Systems Review of Systems: All systems reviewed & are unremarkable except as noted in Subjective Physical Exam Physical Exam: Physical Exam: Vitals signs as noted above General Appearance:Moderately built and nourished, no apparent distress Head: normocephalic, Atraumatic Eyes: normal inspection, EOMI Neck: supple, Trachea midline Respiratory/Chest: Decreased breath sounds, CTA, No accessory muscle use Cardiovascular: S1, S2, No murmur Abdomen/GI:Soft, Non tender, Bowel sounds present Extremities/Musculoskeletal:normal inspection, Trace edema Neurologic/Psych:AAOX3, grossly no focal neurological deficits Skin: normal color, warm Results & Data Results & Data Vital Signs (Past 12 Hours) Vital Signs Temp Pulse Resp BP Pulse Ox O2 Del Method 06/16/23 15:44 36.7 C 58 L 16 108/64 94 Room Air 06/16/23 09:14 67 143/80 H 06/16/23 07:40 Room Air 06/16/23 07:20 36.4 C L 61 16 133/82 93 Room Air
[2023-06-16] MEDS: ADVANCED PROBIOTIC 625 MG CAPSULE PO SCH (20:12)
[2023-06-16] MEDS: LOPERAMIDE HCL 2 MG CAP PO PRN (20:29)
[2023-06-17 06:16] LABS: Hematocrit (blood only) 36.7 % (37.0-47.0); Hemoglobin 12.1 g/dl (12.0-16.0); Mean Corpuscular Hemoglobin 28.6 pg (25.0-34.0); Mean Corpuscular Volume 86.8 fL (80.0-100.0); Mean Platelet Volume 8.8 fL (9.4-12.4); Platelet Count 205 K/uL (130-400); RDW Coefficient of Variation 14.2 % (11.5-14.5); RDW Standard Deviation 45.1 fL (36.4-46.3); Red Blood Count 4.23 M/uL (4.20-5.40); White Blood Count 2.72 K/ul (4.8-10.8)
[2023-06-17 06:40] LABS: BUN Creatinine Ratio 9.2 (10-20); Calcium 8.8 mg/dl (8.6-10.3); Creatinine Clr Calc Pharmacy 43.7 ml/min; Est GFR (African American) 51.7 ml/min; Est GFR (Non-African American) 44.6 ml/min; Potassium 3.4 mmol/L (3.5-5.1)
[2023-06-17 07:16] VITALS: BP 126/76; PULSE 63; RESP 17; TEMP 97.9; O2SAT 97
[2023-06-17] MEDS: PROMETHAZINE HCL 25 MG TAB PO PRN (08:51)
[2023-06-17] MEDS: POTASSIUM CHLORIDE CRTAB 20 MEQ TABCR PO ONE (11:22)
--- NOTE | 2023-06-17 12:39 | Hospitalist Progress Note ---
Date of Service June 17, 2023 Assessment & Plan (1) Influenza: Plan: 77-year-old female with past medical history significant for hyperlipidemia, hypothyroidism, hypertension, moderate mitral regurgitation, fatty liver, GERD, chronic interstitial cystitis, CKD stage III, postmastectomy lymphedema syndrome, polyneuropathy following chemotherapy, bipolar disorder ,depression, mild cognitive impairment, history of breast cancer, who lives at home with with her comes because of ongoing weakness and cough. Patient states since last Wednesday she is having a lot of cough. And progressively getting weaker. And yesterday she could not even get up and ambulate . This reason she was brought in here. Denies any fevers. Feeling weak. No headache. She has on and off double vision and attributes them to dry eyes. No runny nose. No sore throat. Appetite is okay. Denies any chest pain or shortness of breath. No abdominal pain. No diarrhea or constipation. Normal micturition. Hemodynamics are okay. Workup showed influenza positive and also UTI Influenza A --CXR:No acute abnormalities and in particular no radiographic evidence of pneumonia. Droplet precautions Supportive care Continue Tamiflu UTI Urine culture growing Citrobacter, Proteus Blood cultures negative to date Received cefepime X1 dose Continue Rocephin Clinically improved Plan to transition to nitrofurantoin on discharge Diarrhea Hypokalemia Likely due to viral infection/antibiotics Stool for C diff negative Encourage to increase oral fluid intake Generalized weakness Secondary to influenza, UTI Continue PT OT Hypertension Continue amlodipine, atenolol, Lasix, losartan Monitor BP History of hyperlipidemia Continue pravastatin Hypothyroidism Continue levothyroxine Bipolar disorder Depression Normal lithium level On buspirone, Lamictal, lithium carbonate, trazodone and Ativan as needed Continue home medications CKD stage III Cr at baseline Monitor renal function History of breast cancer S/p mastectomy and chemotherapy As per prior provider Double vision? --CT head:No acute intracranial hemorrhage, no evidence of acute territorial infarction or other acute intracranial disease process. Currently no issues Will need ophthalmology evaluation as outpatient DVT Px: Heparin SQ CODE STATUS Full code Disposition Home Admission and Anticipated Discharge Date Admission Date: June 14, 2023 Subjective Patient is seen and examined at bedside Less cough and diarrhea today No new complaints Denies any chest pain, dyspnea, dysuria, hematuria Saturating well on room air Eager to get discharged Review of Systems Review of Systems: All systems reviewed & are unremarkable except as noted in Subjective Physical Exam Physical Exam: Physical Exam: Vitals signs as noted above General Appearance:Moderately built and nourished, no apparent distress Head: normocephalic, Atraumatic Eyes: normal inspection, EOMI Neck: supple, Trachea midline Respiratory/Chest: Decreased breath sounds, CTA, No accessory muscle use Cardiovascular: S1, S2, No murmur Abdomen/GI:Soft, Non tender, Bowel sounds present Extremities/Musculoskeletal:normal inspection, Trace edema Neurologic/Psych:AAOX3, grossly no focal neurological deficits Skin: normal color, warm Results & Data Results & Data Vital Signs (Past 12 Hours) Vital Signs Temp Pulse Resp BP Pulse Ox O2 Del Method 06/17/23 08:00 Room Air 06/17/23 07:15 36.6 C 63 17 126/76 97 Room Air Laboratory Results Short CBC 06/17/23 Range/Units 05:20 WBC 2.72 L (4.8-10.8) K/ul Hgb 12.1 (12.0-16.0) g/dl Hct 36.7 L (37.0-47.0) % Plt Count 205 (130-400) K/uL BMP 06/17/23 05:20 Sodium 140 Potassium 3.4 L Chloride 108 H Carbon Dioxide 24 BUN 11 Creatinine 1.19 Glucose 89 Calcium 8.8
--- NOTE | 2023-06-17 12:58 | Discharge Summary ---
Date of Service June 17, 2023 Admission HPI Per Admitting Provider 77-year-old female with past medical history significant for hyperlipidemia, hypothyroidism, hypertension, moderate mitral regurgitation, fatty liver, GERD, chronic interstitial cystitis, CKD stage III, postmastectomy lymphedema syndrome, polyneuropathy following chemotherapy, bipolar disorder ,depression, mild cognitive impairment, history of breast cancer, who lives at home with with her comes because of ongoing weakness and cough. Patient states since last Wednesday she is having a lot of cough. And progressively getting weaker. And yesterday she could not even get up and ambulate . This reason she was brought in here. Denies any fevers. Feeling weak. No headache. She has on and off double vision and attributes them to dry eyes. No runny nose. No sore throat. Appetite is okay. Denies any chest pain or shortness of breath. No abdominal pain. No diarrhea or constipation. Normal micturition. Hemodynamics are okay. Past medical history. As mentioned above Past surgical history. Bilateral knee arthroplasty left breast open biopsy. Left axilla lymph node dissection. Cervical hemilaminectomy, colonoscopy, cystoscopy, EGD, EGD with endoscopic ultrasound, low back surgery, neck surgery, several surgeries for cervical fusions. Right total shoulder surgery. Nasal polypectomy. Laparoscopic cholecystectomy. Cataract surgery. Social history. . No smoking. No alcohol use. No drug use. Family history. Mother had dementia. Hypertension. Father had diabetes. Admission Exam Per Admitting Provider General- Not in distress Head- atraumatic Eyes- PERRL, ENT- oropharynx clear Neck- supple, no JVD Lungs- clear to auscultation no wheezing or crackles Heart- regular rhythm; no murmur, no gallop. Abdomen- normal bowel sounds, soft, nontender, no distension Extremities- no pretibial edema, no erythema seen Neuro- alert, oriented x 3; PERRL, no facial palsy; no dysarthria; moves extremities. Skin- warm & dry Principal Diagnosis Influenza A Urinary tract infection Discharge Data Allergies Allergy/AdvReac Type Severity Reaction Status Date / Time ciprofloxacin Allergy Intermediate HIVES Verified 12/09/22 13:37 metronidazole Allergy Intermediate hives Verified 12/09/22 13:37 Sulfa (Sulfonamide Allergy Intermediate HIVES Verified 12/09/22 13:37 Antibiotics) baclofen AdvReac Severe NEURO Verified 12/09/22 13:37 SYMPTOMS pantoprazole AdvReac Mild migraines Verified 12/09/22 13:37 zolpidem AdvReac Mild delusions Verified 12/09/22 13:37 Consultations 06/14/23 02:21 ED Decision to Admit Stat Procedures Performed Laboratory Results WBC 2.72 K/ul (4.8-10.8) L 06/17/23 05:20 RBC 4.23 M/uL (4.20-5.40) 06/17/23 05:20 Hgb 12.1 g/dl (12.0-16.0) 06/17/23 05:20 Hct 36.7 % (37.0-47.0) L 06/17/23 05:20 MCV 86.8 fL (80.0-100.0) 06/17/23 05:20 MCH 28.6 pg (25.0-34.0) 06/17/23 05:20 MCHC 33.0 g/dL (32.0-36.0) 06/17/23 05:20 RDW Std Deviation 45.1 fL (36.4-46.3) 06/17/23 05:20 RDW Coeff of [place] 14.2 % (11.5-14.5) 06/17/23 05:20 Plt Count 205 K/uL (130-400) 06/17/23 05:20 MPV 8.8 fL (9.4-12.4) L 06/17/23 05:20 Immature Gran % (Auto) 0.8 % 06/14/23 08:34 Neut % (Auto) 62.5 % 06/14/23 08:34 Lymph % (Auto) 24.9 % 06/14/23 08:34 [place] % (Auto) 11.8 % 06/14/23 08:34 Eos % (Auto) 0.0 % 06/14/23 08:34 Baso % (Auto) 0.0 % 06/14/23 08:34 Neut # (Auto) 2.33 K/uL (1.40-6.50) 06/14/23 08:34 Lymph # (Auto) 0.93 K/uL (1.20-3.40) L 06/14/23 08:34 [place] # (Auto) 0.44 K/uL (0.11-0.59) 06/14/23 08:34 Eos # (Auto) 0.00 K/uL (0.00-0.50) 06/14/23 08:34 Baso # (Auto) 0.00 K/uL (0.00-0.20) 06/14/23 08:34 Immature Gran # (Auto) 0.03 K/uL (0.01-0.20) 06/14/23 08:34 Sodium 140 mmol/L (136-145) 06/17/23 05:20 Potassium 3.4 mmol/L (3.5-5.1) L 06/17/23 05:20 Chloride 108 mmol/L (98-107) H 06/17/23 05:20 Carbon Dioxide 24 mmol/L (21-32) 06/17/23 05:20 Anion Gap 8 (3-11) 06/17/23 05:20 BUN 11 mg/dl (6-23) 06/17/23 05:20 Creatinine 1.19 mg/dl (0.6-1.2) 06/17/23 05:20 Est Cr Clr Drug Dosing 43.7 ml/min 06/17/23 05:20 Est GFR ( Amer) 51.7 ml/min 06/17/23 05:20 Est GFR (Non-Af Amer) 44.6 ml/min 06/17/23 05:20 BUN/Creatinine Ratio 9.2 (10-20) L 06/17/23 05:20 Glucose 89 mg/dl (70-99(Fasting)) 06/17/23 05:20 Lactate 1.8 mmol/L (0.4-2.0) 06/13/23 23:16 Calcium 8.8 mg/dl (8.6-10.3) 06/17/23 05:20 Magnesium 2.0 mg/dl (1.7-2.4) 06/14/23 08:34 Total Bilirubin 0.2 mg/dl (0.2-1.0) 06/13/23 23:16 Direct Bilirubin 0.0 mg/dl (0-0.2) 06/13/23 23:16 AST 16 U/L (13-39) 06/13/23 23:16 ALT 12 U/L (7-52) 06/13/23 23:16 Alkaline Phosphatase 64 U/L (34-104) 06/13/23 23:16 Troponin I High Sens 5.6 pg/ml (0-14) 06/13/23 23:16 Total Protein 7.0 gm/dl (6.0-8.3) 06/13/23 23:16 Albumin 4.3 gm/dl (3.4-5.0) 06/13/23 23:16 Procalcitonin 0.11 ng/ml (0-0.5) 06/13/23 23:16 Urine Color Yellow 06/13/23 23:16 Urine Appearance Clear (Clear) 06/13/23 23:16 Urine pH 7.5 (4.5-7.5) 06/13/23 23:16 Ur Specific [place] 1.012 (1.000-1.030) 06/13/23 23:16 Urine Protein Negative (Negative) 06/13/23 23:16 Urine Glucose (UA) Negative (Negative) 06/13/23 23:16 Urine Ketones Negative (Negative) 06/13/23 23:16 Urine Blood Negative (Negative) 06/13/23 23:16 Urine Nitrite Negative (Negative) 06/13/23 23:16 Urine Bilirubin Negative (Negative) 06/13/23 23:16 Urine Urobilinogen Negative (Negative) 06/13/23 23:16 Ur Leukocyte Esterase 1+ (Negative) H 06/13/23 23:16 Urine WBC (Auto) 10-30 /hpf (0-5) H 06/13/23 23:16 Urine RBC (Auto) 0-4 /hpf (0-4) 06/13/23 23:16 U Hyaline Cast (Auto) 0 /lpf (0-5) 06/13/23 23:16 U Epithel Cells (Auto) 0-5 /lpf (0-5) 06/13/23 23:16 Urine Bacteria (Auto) 3+ (Negative) H 06/13/23 23:16 Stl C. diff Tox B Gene Negative Cdiff Gene (Neg) 06/15/23 Unknown [place] 0.7 mmol/L (0.6-1.2) 06/15/23 05:32 Adenovirus (PCR) Not Detected (NotDetected) 06/13/23 23:34 B. pertussis DNA (PCR) Not Detected (NotDetected) 06/13/23 23:34 B.parapertussis DNA PCR Not Detected (NotDetected) 06/13/23 23:34 C. pneumoniae DNA (PCR) Not Detected (NotDetected) 06/13/23 23:34 Coronavirus OC43 (PCR) Not Detected (NotDetected) 06/13/23 23:34 Coronavirus HKU1 (PCR) Not Detected (NotDetected) 06/13/23 23:34 Coronavirus 229E (PCR) Not Detected (NotDetected) 06/13/23 23:34 SARS-CoV-2 (PCR) Not Detected (NotDetected) 06/13/23 23:34 Coronavirus NL63 (PCR) Not Detected (NotDetected) 06/13/23 23:34 Human Metapneumovir PCR Not Detected (NotDetected) 06/13/23 23:34 Influenza A (H3) PCR DETECTED (NotDetected) A 06/13/23 23:34 Influenza Type B (PCR) Not Detected (NotDetected) 06/13/23 23:34 M. pneumoniae (PCR) Not Detected (NotDetected) 06/13/23 23:34 Parainfluenza 1 (PCR) Not Detected (NotDetected) 06/13/23 23:34 Parainfluenza 2 (PCR) Not Detected (NotDetected) 06/13/23 23:34 Parainfluenza 3 (PCR) Not Detected (NotDetected) 06/13/23 23:34 Parainfluenza 4 (PCR) Not Detected (NotDetected) 06/13/23 23:34 RSV (PCR) Not Detected (NotDetected) 06/13/23 23:34 Entero/Rhino (PCR) Not Detected (NotDetected) 06/13/23 23:34 Impressions Chest X-Ray 06/13/23 23:16 XR chest 1V portable CLINICAL HISTORY: Sepsis TECHNIQUE: Single frontal radiograph of the chest was obtained. Comparison: Comparison is made to chest radiograph 02/02/2023 FINDINGS: No lines and tubes are seen. Calcified aortic knob is seen. The lungs are clear. No evidence of pleural effusion or pneumothorax. IMPRESSION: No acute abnormalities and in particular no radiographic evidence of pneumonia. ACT 112: Negative or not required by law. Electronically signed by: Pb Julio M.D. 06/14/2023 6:[address] 06/14/23 07:22 CT head/brain wo con CLINICAL HISTORY: double vision? Technique: Contiguous axial CT images of the head were acquired from the base of the skull to the vertex without intravenous contrast administration. Images were viewed in brain, subdural and bone windows. Automated dose lowering techniques and/or adjustment according to patient size were utilized for this exam. Comparison: Comparison is made to CT head 12/31/2021 Findings: The ventricles, basal cisterns, and cerebral sulci are normal. There is no acute intracranial hemorrhage or evidence of acute territorial infarction. Neither mass effect, shift of the midline structures, nor abnormal extra-axial fluid col lections are shown. Imaged portions of the paranasal sinuses and mastoid air cells are clear. The orbits appear normal. There are no acute fractures of the calvaria or scalp swelling. Impression: No acute intracranial hemorrhage, no evidence of acute territorial infarction or other acute intracranial disease process. ACT 112: Negative or not required by law. Electronically signed by: Pb Julio M.D. 06/14/2023 9:35 AM Ordered Studies 06/14/23 07:22 CT head/brain wo con Urgent Hospital Course (1) Influenza: 77-year-old female with past medical history significant for hyperlipidemia, hypothyroidism, hypertension, moderate mitral regurgitation, fatty liver, GERD, chronic interstitial cystitis, CKD stage III, postmastectomy lymphedema syndrome, polyneuropathy following chemotherapy, bipolar disorder ,depression, mild cognitive impairment, history of breast cancer, who lives at home with with her comes because of ongoing weakness and cough. Patient states since last Wednesday she is having a lot of cough. And progressively getting weaker. And yesterday she could not even get up and ambulate . This reason she was brought in here. Denies any fevers. Feeling weak. No headache. She has on and off double vision and attributes them to dry eyes. No runny nose. No sore throat. Appetite is okay. Denies any chest pain or shortness of breath. No abdominal pain. No diarrhea or constipation. Normal micturition. Hemodynamics are okay. Workup showed influenza positive and also UTI Influenza A --CXR:No acute abnormalities and in particular no radiographic evidence of pneumonia. Droplet precautions Supportive care Continue Tamiflu UTI Urine culture growing Citrobacter, Proteus Blood cultures negative to date Received cefepime X1 dose Continue Rocephin--4 days Clinically improved Plan to transition to nitrofurantoin on discharge Diarrhea Hypokalemia Likely due to viral infection/antibiotics Stool for C diff negative Encourage to increase oral fluid intake Generalized weakness Secondary to influenza, UTI Continue PT OT Hypertension Continue amlodipine, atenolol, Lasix, losartan Monitor BP History of hyperlipidemia Continue pravastatin Hypothyroidism Continue levothyroxine Bipolar disorder Depression Normal lithium level On buspirone, Lamictal, lithium carbonate, trazodone and Ativan as needed Continue home medications CKD stage III Cr at baseline Monitor renal function History of breast cancer S/p mastectomy and chemotherapy As per prior provider Double vision? --CT head:No acute intracranial hemorrhage, no evidence of acute territorial infarction or other acute intracranial disease process. Currently no issues Will need ophthalmology evaluation as outpatient DVT Px: Heparin SQ CODE STATUS Full code Disposition Home Total Time Total Time Spent Total Time Spent (In Minutes): 49 minutes Discharge Plan Discharge Items Patient Disposition: Home - Self-Care Reason For Visit: WEAKNESS, UTI, FLU Discharge Diagnosis: Influenza A Urinary tract infection Activity: Per Instructions section Exercise/Sports: Gradually increase as tolerated Non-emergency contact: Primary Care Provider Call non-emergency contact if: you have any medication questions, your symptoms worsen, your pain is concerning for you and you have a fever Follow-up/Referrals: Dav Hargrove MD [Primary Care Provider] - (Date & Time 06/25/2023 11:00 AM Provider Dav Hargrove MD Department Family Practice [facility] ) Diet: Heart Healthy Diet Texture: Easy to Chew Addtl Attending Provider Instructions: Follow up with your primary care physician on 06/25/2023 11:00 AM --Complete Tamiflu and Nitrofurantoin course as prescribed Seek immediate medical attention if your symptoms reoccur or worsen Please take all medications as instructed on discharge list below. Please call if you have any questions or problems. You can reach a [facility] hospitalist on duty at [facility] 24 hours a day by calling [phone] Pending Studies at Discharge: Yes Studies:: Blood Cultures Stand-Alone Forms: My [facility] [place], Smoking Cessation Medications and DC Order Prescriptions: New nitrofurantoin monohyd/m-cryst 100 mg Capsule 100 mg PO BID Qty: 6 0RF oseltamivir 30 mg capsule 30 mg PO BID Qty: 4 0RF Advanced Probiotic 625 mg (10 billion cell) Capsule 1 cap PO DAILY Qty: 7 0RF loperamide 2 mg Capsule 2 mg PO Q6H PRN (Reason: loose stool) Qty: 10 0RF Continued aspirin [Juanjo Low Dose Aspirin] 81 mg Tablet,Delayed Release (Dr/Ec) 81 mg PO QAM Qty: 0 levothyroxine 125 mcg Tablet 125 mcg PO QAM Qty: 0 pravastatin 80 mg Tablet 80 mg PO HS Qty: 0 atenolol 50 mg Tablet 50 mg PO QAM Qty: 0 [id number] 3.5-10,000-1 mg/mL-unit/mL-% Solution 1 drp OTIC (EAR) 2XWK Qty: 0 Rx Instructions: we/sa multivitamin [Multiple Vitamins] Tablet 1 tab PO QPM Qty: 0 cranberry extract 300 mg Tablet 300 mg PO BID Qty: 0 gabapentin 300 mg Capsule 300 mg PO TID Qty: 0 omeprazole magnesium 20 mg Capsule,Delayed Release(Dr/Ec) 20 mg PO BID Qty: 0 ascorbic acid (vitamin C) 1,000 mg Tablet 1 g PO BID Qty: 0 fluticasone propionate 50 mcg/actuation [place],Suspension 2 spray INTRANASAL AMPM Qty: 0 calcium carbonate-vitamin D3 [Calcium 500 + D] 500 mg(1,250mg) -200 unit Tablet 1 tab PO BID Qty: 0 lamotrigine [Lamictal] 150 mg Tablet 150 mg PO AMHS Qty: 0 lorazepam 1 mg Tablet 1 mg PO UD PRN (Reason: Anxiety) Qty: 0 dicyclomine 20 mg Tablet 20 mg PO QID Qty: 0 ipratropium bromide 0.03 % [place],Non-Aerosol 2 spray INTRANASAL QID Qty: 0 Zyrtec 10 mg capsule 10 mg PO QAM promethazine 25 mg tablet 25 mg PO Q4H PRN (Reason: Nausea) famotidine 40 mg Tablet 40 mg PO QAM trazodone 100 mg tablet 200 mg PO HS amlodipine 10 mg tablet 10 mg PO QAM pilocarpine HCl [[place] (pilocarpine)] 5 mg tablet 5 mg PO TID ondansetron HCl 8 mg Tablet 8 mg PO Q8 PRN (Reason: Nausea) meclizine 25 mg Tablet 50 mg PO TID PRN (Reason: Dizziness) simethicone [Gas Relief 80 (simethicone)] 80 mg Tablet,Chewable 80 mg PO BID PRN (Reason: Stomach Upset) Soothe XP 1-4.5 % Drops 2 drp ophthalmic (eye) BID Rx Instructions: USE BETWEEN RESTASIS cyanocobalamin (vitamin B-12) [Vitamin B-12] 100 mcg Tablet 100 mcg PO QAM lithium carbonate 300 mg Tablet 300 mg PO HS buspirone 7.5 mg tablet 7.5 mg PO TID furosemide 20 mg tablet 20 mg PO QAM losartan 100 mg tablet 100 mg PO QAM tramadol 50 mg tablet 50 - 100 mg PO Q4 MDD 8 PRN (Reason: pain) cyclosporine [Restasis] 0.05 % dropperette 1 drp OPB BID Discharge Orders: Discharge Order (Routine); Ordered 06/17/23 Ordered By: Randall Zafar Admission Data Admit Date/Time: 06/14/23 03:10 Attending Provider: Randall Zafar Admit Provider: Mich Castellanos Primary Care Provider: Dav Hargrove Other Providers: Mich Castellanos
[2023-06-18] MEDS ORDERED: NITROFURANTOIN MONOHYDRATE 100 MG CAP PO SCH (09:00)
== END 2023-06-17 13:57 | disposition home or self-care (01) | DRG 194 ==
LOC: ED 22:38 → 3E 06-14 03:10 → SUATTDRO 06-14 03:10 → 3E 06-14 05:14

== ENCOUNTER 2024-04-24 11:26 | Inpatient (IN) ==
[2024-04-24 12:48] LABS: Basophils # (auto) 0.01 K/uL (0.00-0.20); Basophils % (auto) 0.2 %; Eosinophils # (auto) 0.01 K/uL (0.00-0.50); Eosinophils % (auto) 0.2 %; Hematocrit (blood only) 39.5 % (37.0-47.0); Hemoglobin 13.3 g/dl (12.0-16.0); Immature Granulocytes # (auto) 0.05 K/uL (0.01-0.20); Lymphocytes # (auto) 1.19 K/uL (1.20-3.40); Lymphocytes % (auto) 22.8 %; Mean Corpuscular Hemoglobin 30.8 pg (25.0-34.0); Mean Corpuscular Hgb Conc 33.7 g/dL (32.0-36.0); Mean Corpuscular Volume 91.4 fL (80.0-100.0); Monocytes % (auto) 7.7 %; Neutrophils # (auto) 3.55 K/uL (1.40-6.50); Neutrophils % (auto) 68.1 %; Platelet Count 251 K/uL (130-400); RDW Coefficient of Variation 13.4 % (11.5-14.5); RDW Standard Deviation 45.1 fL (36.4-46.3); Red Blood Count 4.32 M/uL (4.20-5.40); White Blood Count 5.21 K/ul (4.8-10.8)
--- NOTE | 2024-04-24 13:12 | History & Physical Report ---
Date of Service April 24, 2024 Assessment & Plan (1) Recurrent UTI (urinary tract infection): (2) Acute kidney injury superimposed on stage 3a chronic kidney disease: Plan Mary Dyer is a 78-year-old female with PMHx significant for HTN, HLD, hypothyroidism due to acquired atrophy of thyroid, moderate mitral regurgitation, fatty liver, GERD with esophagitis, diverticulosis, IBS with constipation + diarrhea, chronic interstitial cystitis, CKD stage IIIa, urinary retention, urge incontinence, recurrent UTIs, history of recurrent C. difficile infection [last positive in 2021], cervical DDD, left breast cancer s/p radiation+chemotherapy+mastectomy, post-mastectomy lymphedema syndrome, polyneuropathy following chemotherapy, bipolar depression and mild cognitive impairment who presented to the ED on 04/24/24 via referral from [facility] pharmacy for management of a recurrent UTI. Patient was previously seen in the [facility] ED on 04/22/24 for evaluation of lower abdominal pain. Laboratory evaluation at that time was grossly unremarkable however her urinalysis came back positive for evidence of infection. CTAP was also performed at that time which was unremarkable as well. She was started on a course of cefdinir and discharged home; however, her urine culture results came back positive for Morganella morganii - cefdinir does not cover this organism, therefore she was referred to the ED for admission in order to receive IV antibiotics. Of note, patient had a total of 8 UTIs last year per her . Previous urine cultures dating back to last April have grown the following: E. coli, Klebsiella pneumoniae, Enterobacter cloacae complex, Pseudomonas aeruginosa, Citrobacter freundii and Proteus mirabilis. Recurrent UTI Urge Incontinence, Urinary Retention: -Initial laboratory evaluation unremarkable except for GIA noted below. VSS; no evidence of sepsis. Continue Flomax. -History as per above and HPI. Urine cx from 04/22/24 growing Morganella morganii . Pharmacy recommending ABX coverage with IV cefepime - continue. -Probiotic added on. ID consulted for further evaluation - Patient has been on prophylactic antibiotic therapy with Keflex for her recurrent UTIs (hold for now). Bladder scan QS. GIA Superimposed on CKD Stage IIIa: Patient noted to have an GIA with Cr of 1.52 on admission, baseline Cr ~ 1.2-1.4 per chart review. Suspect due to recent poor oral intake/dehydration. Currently producing urine; will defer additional lab/imaging diagnostic pending fluid resuscitation with 125cc/hr NSS x 2 bags. Avoid nephrotoxic meds when able. Monitor renal function closely and renally dose medications when able. Hold home ASA for now. Other Chronic Medical Conditions: * HTN/HLD - Continue statin, amlodipine, atenolol & losartan. Hold Lasix ISO dehydration/GIA. Also holding ASA for now ISO GIA. GERD - Continue PPI & H2 enoc. * Bipolar Depression - Continue BuSpar, Lamictal & [place]. Check lithium level. Polyneuropathy S/P Chemotherapy - Continue gabapentin. Hypothyroidism - Teri nue levothyroxine, check TSH. DVT Prophylaxis: SQ Heparin Code Status: FULL CODE PCP: Dav Hargrove MD Disposition: Admit to Med/Surg for further inpatient evaluation and management. Will get PT eval as the patient has been feeling quite weak as of lately; fall precautions on board. Patient seen in collaboration with Dr. Mota. Please see addendum. I spent a total of 55 minutes coordinating, documenting, and providing care for this patient excluding time spent in the performance of separately billed services. This included personally reviewing all current laboratories and imaging studies, medical reconciliation, outpatient chart review and discussion with specialists. This chart was completed in part utilizing Speech Voice Recognition Software. Grammatical errors, random word insertions, pronoun errors, and incomplete sentences are an occasional consequence of this system due to software limitations, ambient noise, and hardware issues. Any formal questions or concerns about the content, text, or information contained within the body of this dictation should be directly addressed to the provider for clarification. History of Present Illness Chief Complaint: Referred by Pharmacy: Positive Urine Culture Results Primary Care Provider: Dav Hargrove MD Mary Dyer is a 78-year-old female with PMHx significant for HTN, HLD, hypo thyroidism due to acquired atrophy of thyroid, moderate mitral regurgitation, fatty liver, GERD with esophagitis, diverticulosis, IBS with constipation + diarrhea, chronic interstitial cystitis, CKD stage IIIa, urinary retention, urge incontinence, recurrent UTIs, history of recurrent C. difficile infection [last positive in 2021], cervical DDD, left breast cancer s/p radiation+chemotherapy+mastectomy, post-mastectomy lymphedema syndrome, polyneuropathy following chemotherapy, bipolar depression and mild cognitive impairment who presented to the ED on 04/24/2024 via referral from [facility] pharmacy for management of an acute UTI. History obtained from the patient, patient's at bedside and associated chart review. Patient was previously seen in the [facility] ED on 04/22/2024 for evaluation of lower abdominal pain. Laboratory evaluation at that time was grossly unremarkable however her urinalysis came back positive for evidence of infection. CTAP was also performed at that time which was unremarkable as well. She was started on a course of cefdinir at that time however urine culture results came back positive for Morganella morganii - cefdinir does not cover this organism, therefore she was referred to the ED for admission in order to receive IV antibiotics. Of note, patient had a total of 8 UTIs last year per her . Patient still endorsing some lower abdominal pain and discomfort, which has been ongoing since last Wednesday (04/17). She was experiencing some diarrhea earlier last week however this has since subsided; patient with chronic diarrhea issues at baseline - she follows with [facility] [address] as an outpatient. She has a history of recurrent C. difficile infection however her most recent occurrence was back in 2021. No reported fevers at home over the past week. She has been experiencing some chills but denies any body aches. Patient reports she is "always cold." She was experiencing a cough and minor sinus congestion earlier last week however this has since subsided as well. She does endorse feeling progressively weaker since this all began. She has been experiencing some lightheadedness/dizziness which started over this past weekend however she denies any falls or syncope at home. Her reports that her appetite has been significantly decreased and that her oral hydration status has been poor since this all started last week - patient attributes this to her lower abdominal pain. She denies any nausea or vomiting. She is endorsing a headache which has been ongoing for the past 2-3 days. She has been compliant with the course of oral cefdinir at home with no significant change in her overall clinical status per her . Patient reports that she took all of her medications this morning. Patient has been on prophylactic antibiotic therapy with Keflex for her recurrent UTIs, which was prescribed by her primary urologist - Dr. Cristian Griffin at [facility]. She reports taking her most recent dose prior to starting cefdinir as mentioned above. Patient has been dealing with urinary incontinence at least since last year; she has tried Myrbetriq, Vesicare in the past without much improvement. Patient had Botox bladder injections back in March without transient improvement. She was noted to have a postvoid residual of 280cc at her most recent urology appointment back on 04/17/2024. Patient has significant difficulties with urinary leakage. Patient was started on Flomax at her last urology appointment - she has not noticed much change yet in her urinary leakage difficulties. Allergies Allergy/AdvReac Type Severity Reaction Status Date / Time ciprofloxacin Allergy Intermediate HIVES Verified 08/06/23 09:19 metronidazole Allergy Intermediate hives Verified 08/06/23 09:19 Sulfa (Sulfonamide Allergy Intermediate HIVES Verified 08/06/23 09:19 Antibiotics) baclofen AdvReac Severe NEURO Verified 08/06/23 09:19 SYMPTOMS pantoprazole AdvReac Mild migraines Verified 08/06/23 09:19 zolpidem AdvReac Mild delusions Verified 08/06/23 09:19 Home Medications Medication Instructions Recorded Confirmed Type aspirin 81 mg tablet,delayed 81 mg PO QAM #0 tabs 11/17/11 04/24/24 History release (Juanjo Low Dose Aspirin) levothyroxine 125 mcg tablet 125 mcg PO QAM ##0 02/04/13 04/24/24 History atenolol 50 mg tablet 50 mg PO QAM ##0 05/24/14 04/24/24 History bxhvgbny-jxgbfswgt-tdwflruab 3.5 1 drp otic (ear) 2XWK ##0 05/24/14 04/24/24 History mg/mL-10,000 unit/mL-1 % ear solution pravastatin 80 mg tablet 80 mg PO HS ##0 05/24/14 04/24/24 History multivitamin (Multiple Vitamins 1 tab PO QPM #0 tabs 04/22/15 04/24/24 History tablet) cranberry extract 300 mg tablet 300 mg PO BID ##0 07/07/16 04/24/24 History gabapentin 300 mg capsule 300 mg PO TID #0 caps 07/07/16 04/24/24 History omeprazole magnesium 20 mg 20 mg PO BID #0 caps 07/07/16 04/24/24 History capsule,delayed release ascorbic acid (vitamin C) 1,000 mg 1 g PO BID ##0 12/03/16 04/24/24 History tablet calcium 500 mg (as 1 tab PO BID ##0 12/03/16 04/24/24 History carbonate)-vitamin D3 5 mcg (200 unit) tablet (Calcium 500 + D) fluticasone propionate 50 2 spray intranasal AMPM ##0 12/03/16 04/24/24 History mcg/actuation nasal spray,suspension lamotrigine 150 mg tablet 150 mg PO AMHS #0 tabs 03/28/17 04/24/24 History (Lamictal) lorazepam 1 mg tablet 1 mg PO UD PRN Anxiety #0 tabs 03/28/17 04/24/24 History dicyclomine 20 mg tablet 20 mg PO QID PRN Abdominal 07/01/17 04/24/24 History Cramping ##0 ipratropium bromide 21 mcg (0.03 2 spray intranasal QID ##0 07/01/17 04/24/24 History %) nasal spray light mineral oil 1 %-mineral oil 2 drp ophthalmic (eye) BID 01/26/18 04/24/24 History 4.5 % eye drops (Soothe XP) meclizine 25 mg tablet 50 mg PO TID PRN Dizziness 01/26/18 04/24/24 History ondansetron HCl 8 mg tablet 8 mg PO Q8 PRN Nausea 01/26/18 04/24/24 History simethicone 80 mg chewable tablet 80 mg PO BID PRN Stomach Upset 01/26/18 04/24/24 History (Gas Relief 80 (simethicone)) famotidine 40 mg tablet 40 mg PO QAM 02/08/20 04/24/24 History trazodone 100 mg tablet 200 mg PO HS 02/08/20 04/24/24 History amlodipine 10 mg tablet 10 mg PO QAM 05/21/20 04/24/24 History pilocarpine HCl 5 mg tablet 5 mg PO TID 05/21/20 04/24/24 History ([place] (pilocarpine)) cetirizine 10 mg capsule (Zyrtec) 10 mg PO QAM 09/24/20 04/24/24 History lithium carbonate 300 mg tablet 300 mg PO HS 05/23/21 04/24/24 History promethazine 25 mg tablet 25 mg PO Q4H PRN Nausea/Vomiting 07/30/21 04/24/24 History cyanocobalamin (vitamin B-12) 100 100 mcg PO QAM 12/29/21 04/24/24 History mcg tablet (Vitamin B-12) cyclosporine 0.05 % eye drops in a 1 drp OPB BID 06/14/23 04/24/24 History dropperette (Restasis) furosemide 20 mg tablet 20 mg PO QAM 06/14/23 04/24/24 History losartan 100 mg tablet 100 mg PO QAM 06/14/23 04/24/24 History buspirone 7.5 mg tablet 10 mg PO TID 08/06/23 04/24/24 History cephalexin 250 mg tablet 250 mg PO HS UTI Prophylaxis 04/24/24 04/24/24 History loperamide 2 mg capsule 2 mg PO Q6H PRN Diarrhea 04/24/24 04/24/24 History tamsulosin 0.4 mg capsule 0.4 mg PO QPM 04/24/24 04/24/24 History Past Med/Surg History Problem List Acute kidney injury superimposed on stage 3a chronic kidney disease Recurrent UTI (urinary tract infection) Acute UTI (Acute) Generalized weakness (Acute) Influenza A (Acute) Acute UTI (Acute) Influenza Acute UTI (Acute) Elevated troponin (Acute) Fever (Acute) Lymphedema Status post total shoulder arthroplasty Cellulitis of upper extremity (Acute) recurrent, Dr Castellano Hypokalemia (Acute) Acute pyelonephritis Pyelonephritis (Acute) Sepsis (Acute) Chest pain (Acute) Breath shortness (Acute) Bipolar 1 disorder UTI (urinary tract infection) Clostridioides difficile infection DVT prophylaxis Erysipelas Lymphedema Encounter for pre-operative examination Cervical stenosis of spinal canal Primary osteoarthritis, right shoulder Mitral valve posterior leaflet prolapse 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 per 05/2020 echo Aspiration pneumonia 2017, suspected to be d/t GI upset, [facility] hospitalization 10/19/21, acid reflux spell, no hospitalization History of bipolar disorder Hypertension (Chronic) Hypothyroidism (Chronic) Anxiety (Chronic) Depression (Chronic) Fatty liver (Chronic) Lumbar stenosis with neurogenic claudication History of breast cancer (Chronic) s/p chemo and radiation--left side Medical History CVA (cerebral vascular accident) old lacunar infarct in R cerebellar hemisphere noted on 05/2020 MRI brain Limb alert care status LUE restriction r/t lymphedema Mild cognitive impairment per [facility] records Asthma Stable Chronic kidney disease (CKD), stage III (moderate) C. difficile diarrhea chronic, on vancomycin for suppressive therapy, follows with [facility] GI History of COVID-19 diagnosed 01/2021--sinus issue, no hospitalization--no issues now Leukocytosis Hyperlipidemia TIA (transient ischemic attack) 2018, no deficits, no neurologist GERD (gastroesophageal reflux disease) Surgical History History of breast surgery History of bilateral tubal ligation History of foot surgery right History of lumbar spinal fusion x4 History of fusion of cervical spine x2--very limited with ROM History of total right knee replacement (TKR) History of esophagogastroduodenoscopy (EGD) History of vascular access device Port for chemo, later removed History of removal of Port-a-Cath History of cardiac cath 2016 > no stents H/O dilation and curettage Status post total left knee replacement H/O cystoscopy H/O colonoscopy History of lymph node dissection of left axilla 03/14/2013- Left axillary lymph node dissection History of cataract surgery R/L Family History Other No family history of adverse response to anesthesia Social History Smoking Status: Never smoker Second Hand Exposure: No; Do You Dip or Chew Tobacco: No; Hx Alcohol Use: No Hx Substance Use: No Preferred Language: [place] Communication Ability: Effective Senior Power Plant Operator Required: No Beliefs That Will Affect Care: None marital status: Current Living Situation: Spouse Current Living Situation Comment: Patient states she lives at home with (Luis Fernando) How many Children do You have: 0 Other Information That Helps Us Care for You: No Feels Safe at Home: Yes Safety Concerns: Feels Safe At This Time Assistive Devices: Glasses Review of Systems Review of Systems: At least ten systems reviewed and negative, except as noted in the HPI. Physical Exam Physical Exam: General: WD/WN, vitals as above, NAD, sitting up in bed, pleasant, conversing appropriately. A+Ox3, euthymic affect. HEENT: Normocephalic, atraumatic. Conjunctivae normal. External ear and nose normal, oropharynx appears dry. Respiratory: Normal respiratory effort, lungs clear to auscultation, no wheeze/rales/rhonchi. No accessory muscle use. Cardiovascular: Regular rate, rhythm, normal peripheral pulses, no BLE edema. Vessels: No JVD. Abdomen/GI: Normal bowel sounds, soft, mildly distended, nontender to palpation in all quadrants. Extremities/Musculoskeletal: No cyanosis or clubbing, extremities motor strength intact, moves all extremities. Neurologic: No overt focal deficits, CN's II-XI not formally tested but appear grossly intact bilaterally. Results & Data Results & Data Vital Signs (Past 12 Hours) Vital Signs Temp Pulse Resp BP Pulse Ox O2 Del Method 04/24/24 11:54 36.7 C 76 18 139/76 94 Room Air Laboratory Results Short CBC 04/24/24 Range/Units 12:20 WBC 5.21 (4.8-10.8) K/ul Hgb 13.3 (12.0-16.0) g/dl Hct 39.5 (37.0-47.0) % Plt Count 251 (130-400) K/uL BMP 04/24/24 12:20 Sodium 138 Potassium 4.5 Chloride 102 Carbon Dioxide 28 BUN 16 Creatinine 1.52 H Glucose 92 Calcium 9.8 Liver Function 04/24/24 Range/Units 12:20 Total Bilirubin 0.4 (0.2-1.0) mg/dl Direct Bilirubin 0.1 (0-0.2) mg/dl AST 18 (13-39) U/L ALT 14 (7-52) U/L Alkaline Phosphatase 69 (34-104) U/L Albumin 4.7 (3.4-5.0) gm/dl Medications Administered Sodium Chloride (Nss) 1,000 mls @ 125 mls/hr IV .Q8H BABATUNDE Stop: 04/25/24 06:29 Last Admin: 04/24/24 14:34 Dose: 125 mls/hr Documented By: TOM Discontinued Medications Cefepime HCl (Maxipime 2000mg) 2,000 mg in 20 mls @ 5 mls/min IV NOW STA; Protocol Stop: 04/24/24 13:08 Last Admin: 04/24/24 13:52 Dose: 5 mls/min Documented By: ISAÍAS Lactobacillus Acidophilus (Advanced Probiotic 625 Mg Capsule) 1,250 mg PO NOW STA Stop: 04/24/24 13:53 Last Admin: 04/24/24 14:13 Dose: 1,250 mg Documented By: ISAÍAS Code Status & VTE Plan Code Status FULL CODE Supervising Physician Co-Signing Physician Notes Attending Addendum: Case reviewed with the advanced practitioner. I have personally performed a history and physical examination on the patient. I have reviewed the advanced practitioner's documentation on the date of service referenced in note, and I agree with, and take responsibility for the plan of care. please refer to her notes for full details patient seen and examined, records reviewed by myself as well on exam, patient seen resting in bed, not in distress reports weakness, poor appetite, urinary incontinence no other symptoms VS noted and reviewed oriented x3 , not in distress, speaks in sentences with no effort nor accessory muscle use normal rate, regular rhythm, no murmurs clear breath sounds bilaterally non distended, soft, nontender no bipedal edema, erythema, warmth no neuro deficits all labs, imaging noted and reviewed ASSESSMENT AND PLAN> UTI, Morganella Recurrent UTI, in the setting of chronic urinary retention follows with [facility] recently started on Tamsulosin bladder scan qs, may need indwelling randolph cath failed Cefdinir therapy start Cefepime IV ID consulted for recurrent UTI- at least 6x last year per ACUTE KIDNEY INJURY from poor oral intake, UTI IV flluids other diagnoses and plan of care as per advanced practitioner's notes Charan Mota MD
[2024-04-24 13:19] LABS: Albumin Level 4.7 gm/dl (3.4-5.0); BUN Creatinine Ratio 10.5 (10-20); Bilirubin,Total 0.4 mg/dl (0.2-1.0); Calcium 9.8 mg/dl (8.6-10.3); Creatinine Clr Calc Pharmacy 34.8 ml/min; Total Protein 7.7 gm/dl (6.0-8.3)
[2024-04-24 13:26] LABS: Bilirubin Direct 0.1 mg/dl (0-0.2); Potassium 4.5 mmol/L (3.5-5.1)
[2024-04-24] MEDS: CEFEPIME 2000MG 2,000 MG/20 ML SYR IV STA (13:52)
[2024-04-24] MEDS: ADVANCED PROBIOTIC 625 MG CAPSULE PO STA (14:13)
--- NOTE | 2024-04-24 14:18 | Emergency Department Note ---
Impression & Plan Acute UTI, Recurrent UTI (urinary tract infection) ED Provider Note NAME: TEODORO PAEZ AGE: 78 SEX: F : 1945 ARRIVES VIA: Walk-In INFORMANT: Patient, ED PROVIDER(S): Viral Liz MD CHIEF COMPLAINT: UTI HPI: This is a 78-year-old female presenting for a call back for UTI. Patient was seen on Wednesday for weakness, lightheadedness. Patient has that she was called by the pharmacist today as a culture came back showing that there was no viable oral options due to allergies and the specific bacteria resistance. She has persistent symptoms at this time she has no urinary symptoms however including dysuria, urgency or frequency. She has had frequent asymptomatic UTIs last year. ROS: See above HPI for pertinent positives & negatives. A total of 10 systems reviewed and were otherwise negative. PAST MEDICAL HISTORY: See Below PAST SURGICAL HISTORY: See Below FAMILY HISTORY: See Below SOCIAL HISTORY: See Below HOME MEDICATIONS: See Below ALLERGIES: See Below VITALS: See Below PHYSICAL EXAMINATION: General: resting comfortably in no acute distress Head: Normocephalic and atraumatic Eyes: Normal inspection, extraocular muscles intact Ear, nose, throat: Normal external exam Neck: Normal range of motion Respiratory: speaking in full sentences, symmetric chest rise, no respiratory distress Cardiovascular: Regular rate/rhythm Extremities: moves all extremities Neuro: The patient awake and alert, appropriately conversive, symmetric faces, no focal deficits MEDICAL DECISION MAKING: This is a 78-year-old female presenting for UTI. Patient has persistent symptoms of fatigue, lightheadedness and generalized malaise. She has a urine culture that grew out resistant bacteria and with her allergies there is no oral option that is viable. Will give cefepime and admit at this time. -No leukocytosis, anemia. Electrolytes are normal limits. Creatinine slightly elevated 1.52. -Patient will be admitted for antibiotic resistant UTI Differential diagnosis: UTI, sepsis, URI, pneumonia Diagnostics interpreted by me: ECG: None Cardiac Monitoring: An order was placed for continuous cardiac monitoring. The monitor shows a rate of 62 with sinus rhythm. Past Med/Surg History Problem List (Updated 04/25/24 @ 23:07 by Viral Liz MD) Urinary incontinence Bipolar disorder Hypothyroidism (acquired) Hypertension, essential Acute kidney injury superimposed on stage 3a chronic kidney disease Recurrent UTI (urinary tract infection) (Acute) Acute UTI (Acute) Generalized weakness (Acute) Influenza A (Acute) Acute UTI (Acute) Influenza Acute UTI (Acute) Elevated troponin (Acute) Fever (Acute) Lymphedema Status post total shoulder arthroplasty Cellulitis of upper extremity (Acute) recurrent, Dr Castellano Hypokalemia (Acute) Acute pyelonephritis Pyelonephritis (Acute) Sepsis (Acute) Chest pain (Acute) Breath shortness (Acute) Bipolar 1 disorder UTI (urinary tract infection) Clostridioides difficile infection DVT prophylaxis Erysipelas Lymphedema Encounter for pre-operative examination Cervical stenosis of spinal canal Primary osteoarthritis, right shoulder Mitral valve posterior leaflet prolapse 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 per 05/2020 echo Aspiration pneumonia 2017, suspected to be d/t GI upset, [facility] hospitalization 10/19/21, acid reflux spell, no hospitalization History of bipolar disorder Hypertension (Chronic) Hypothyroidism (Chronic) Anxiety (Chronic) Depression (Chronic) Fatty liver (Chronic) Lumbar stenosis with neurogenic claudication History of breast cancer (Chronic) s/p chemo and radiation--left side Medical History CVA (cerebral vascular accident) old lacunar infarct in R cerebellar hemisphere noted on 05/2020 MRI brain Limb alert care status LUE restriction r/t lymphedema Mild cognitive impairment per [facility] records Asthma Stable Chronic kidney disease (CKD), stage III (moderate) C. difficile diarrhea chronic, on vancomycin for suppressive therapy, follows with [facility] GI History of COVID-19 diagnosed 01/2021--sinus issue, no hospitalization--no issues now Leukocytosis Hyperlipidemia TIA (transient ischemic attack) 2018, no deficits, no neurologist GERD (gastroesophageal reflux disease) Surgical History History of breast surgery History of bilateral tubal ligation History of foot surgery right History of lumbar spinal fusion x4 History of fusion of cervical spine x2--very limited with ROM History of total right knee replacement (TKR) History of esophagogastroduodenoscopy (EGD) History of vascular access device Port for chemo, later removed History of removal of Port-a-Cath History of cardiac cath 2016 > no stents H/O dilation and curettage Status post total left knee replacement H/O cystoscopy H/O colonoscopy History of lymph node dissection of left axilla 03/14/2013- Left axillary lymph node dissection History of cataract surgery R/L Family History Other No family history of adverse response to anesthesia Social History Smoking Status: Never smoker Second Hand Exposure: No; Do You Dip or Chew Tobacco: No; Hx Alcohol Use: No Hx Substance Use: No Preferred Language: Scottish Communication Ability: Effective 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 Up Required: No Beliefs That Will Affect Care: None marital status: Current Living Situation: Spouse Current Living Situation Comment: Patient states she lives at home with (Luis Fernando) How many Children do You have: 0 Other Information That Helps Us Care for You: No Feels Safe at Home: Yes Safety Concerns: Feels Safe At This Time Assistive Devices: Walker Allergies Allergies Allergy/AdvReac Type Severity Reaction Status Date / Time ciprofloxacin Allergy Intermediate HIVES Verified 08/06/23 09:19 metronidazole Allergy Intermediate hives Verified 08/06/23 09:19 Sulfa (Sulfonamide Allergy Intermediate HIVES Verified 08/06/23 09:19 Antibiotics) baclofen AdvReac Severe NEURO Verified 08/06/23 09:19 SYMPTOMS pantoprazole AdvReac Mild migraines Verified 08/06/23 09:19 zolpidem AdvReac Mild delusions Verified 08/06/23 09:19 Home Meds Home Medications Medication Instructions Recorded Confirmed aspirin 81 mg tablet,delayed 81 mg PO QAM #0 tabs 11/17/11 04/24/24 release (Juanjo Low Dose Aspirin) levothyroxine 125 mcg tablet 125 mcg PO QAM ##0 02/04/13 04/24/24 atenolol 50 mg tablet 50 mg PO QAM ##0 05/24/14 04/24/24 [id number] 3.5 1 drp otic (ear) 2XWK ##0 05/24/14 04/24/24 mg/mL-10,000 unit/mL-1 % ear solution pravastatin 80 mg tablet 80 mg PO HS ##0 05/24/14 04/24/24 multivitamin (Multiple Vitamins 1 tab PO QPM #0 tabs 04/22/15 04/24/24 tablet) cranberry extract 300 mg tablet 300 mg PO BID ##0 07/07/16 04/24/24 gabapentin 300 mg capsule 300 mg PO TID #0 caps 07/07/16 04/24/24 omeprazole magnesium 20 mg 20 mg PO BID #0 caps 07/07/16 04/24/24 capsule,delayed release ascorbic acid (vitamin C) 1,000 mg 1 g PO BID ##0 12/03/16 04/24/24 tablet calcium 500 mg (as 1 tab PO BID ##0 12/03/16 04/24/24 carbonate)-vitamin D3 5 mcg (200 unit) tablet (Calcium 500 + D) fluticasone propionate 50 2 spray intranasal AMPM ##0 12/03/16 04/24/24 mcg/actuation nasal spray,suspension lamotrigine 150 mg tablet 150 mg PO AMHS #0 tabs 03/28/17 04/24/24 (Lamictal) lorazepam 1 mg tablet 1 mg PO UD PRN Anxiety #0 tabs 03/28/17 04/24/24 dicyclomine 20 mg tablet 20 mg PO QID PRN Abdominal 07/01/17 04/24/24 Cramping ##0 ipratropium bromide 21 mcg (0.03 2 spray intranasal QID ##0 07/01/17 04/24/24 %) nasal spray light mineral oil 1 %-mineral oil 2 drp ophthalmic (eye) BID 01/26/18 04/24/24 4.5 % eye drops (Soothe XP) meclizine 25 mg tablet 50 mg PO TID PRN Dizziness 01/26/18 04/24/24 ondansetron HCl 8 mg tablet 8 mg PO Q8 PRN Nausea 01/26/18 04/24/24 simethicone 80 mg chewable tablet 80 mg PO BID PRN Stomach Upset 01/26/18 04/24/24 (Gas Relief 80 (simethicone)) famotidine 40 mg tablet 40 mg PO QAM 02/08/20 04/24/24 trazodone 100 mg tablet 200 mg PO HS 02/08/20 04/24/24 amlodipine 10 mg tablet 10 mg PO QAM 05/21/20 04/24/24 pilocarpine HCl 5 mg tablet 5 mg PO TID 05/21/20 04/24/24 (Salagen (pilocarpine)) cetirizine 10 mg capsule (Zyrtec) 10 mg PO QAM 09/24/20 04/24/24 lithium carbonate 300 mg tablet 300 mg PO HS 05/23/21 04/24/24 promethazine 25 mg tablet 25 mg PO Q4H PRN Nausea/Vomiting 07/30/21 04/24/24 cyanocobalamin (vitamin B-12) 100 100 mcg PO QAM 12/29/21 04/24/24 mcg tablet (Vitamin B-12) cyclosporine 0.05 % eye drops in a 1 drp OPB BID 06/14/23 04/24/24 dropperette (Restasis) furosemide 20 mg tablet 20 mg PO QAM 06/14/23 04/24/24 losartan 100 mg tablet 100 mg PO QAM 06/14/23 04/24/24 buspirone 7.5 mg tablet 10 mg PO TID 08/06/23 04/24/24 cephalexin 250 mg tablet 250 mg PO HS UTI Prophylaxis 04/24/24 04/24/24 loperamide 2 mg capsule 2 mg PO Q6H PRN Diarrhea 04/24/24 04/24/24 tamsulosin 0.4 mg capsule 0.4 mg PO QPM 04/24/24 04/24/24 Results & Data (ED) Vital Signs Vital Signs - 24 hr 04/24/24 11:54 04/24/24 13:59 Temperature 36.7 C Temperature Source Temporal Artery Scan Pulse Rate 76 Pulse Rate [Finger] 63 Respiratory Rate 18 20 Respiratory Effort / Characteristics Non-Labored Spontaneous Non-Labored Spontaneous Respiratory Depth Normal Normal Respiratory Pattern Regular Blood Pressure 139/76 Blood Pressure [Right Arm] 128/76 Blood Pressure Mean 97 Blood Pressure Mean [Right Arm] 93 Pulse Oximetry 94 96 Oxygen Delivery Method Room Air Room Air Sepsis Recent Fever Within 48 Hours No Sepsis New/Unexplained Change in Mental Status No Sepsis Action Taken by Nursing No Action Required Laboratory Data 04/25/24 10:15 04/25/24 10:15 Lab Results 04/24/24 Range/Units 12:20 WBC 5.21 (4.8-10.8) K/ul RBC 4.32 (4.20-5.40) M/uL Hgb 13.3 (12.0-16.0) g/dl Hct 39.5 (37.0-47.0) % MCV 91.4 (80.0-100.0) fL MCH 30.8 (25.0-34.0) pg MCHC 33.7 (32.0-36.0) g/dL RDW Std Deviation 45.1 (36.4-46.3) fL RDW Coeff of [place] 13.4 (11.5-14.5) % Plt Count 251 (130-400) K/uL MPV 9.0 L (9.4-12.4) fL Immature Gran % (Auto) 1.0 % Neut % (Auto) 68.1 % Lymph % (Auto) 22.8 % [place] % (Auto) 7.7 % Eos % (Auto) 0.2 % Baso % (Auto) 0.2 % Neut # (Auto) 3.55 (1.40-6.50) K/uL Lymph # (Auto) 1.19 L (1.20-3.40) K/uL [place] # (Auto) 0.40 (0.11-0.59) K/uL Eos # (Auto) 0.01 (0.00-0.50) K/uL Baso # (Auto) 0.01 (0.00-0.20) K/uL Immature Gran # (Auto) 0.05 (0.01-0.20) K/uL Sodium 138 (136-145) mmol/L Potassium 4.5 (3.5-5.1) mmol/L Chloride 102 (98-107) mmol/L Carbon Dioxide 28 (21-32) mmol/L Anion Gap 8 (3-11) BUN 16 (6-23) mg/dl Creatinine 1.52 H (0.6-1.2) mg/dl Est Cr Clr Drug Dosing 34.8 ml/min eGFR 35.33 BUN/Creatinine Ratio 10.5 (10-20) Glucose 92 (70-99(Fasting)) mg/dl Calcium 9.8 (8.6-10.3) mg/dl Total Bilirubin 0.4 (0.2-1.0) mg/dl Direct Bilirubin 0.1 (0-0.2) mg/dl AST 18 (13-39) U/L ALT 14 (7-52) U/L Alkaline Phosphatase 69 (34-104) U/L Total Protein 7.7 (6.0-8.3) gm/dl Albumin 4.7 (3.4-5.0) gm/dl Administered Medications Amlodipine Besylate (Amlodipine Besylate 5 Mg Tab) 10 mg PO QAM [facility] Stop: 05/25/24 08:59 Last Admin: 04/25/24 08:29 Dose: 10 mg Documented By: NORRIS Artificial Tears (Artificial Tears) 1 drops OP QID [facility] Stop: 05/24/24 16:59 Last Admin: 04/25/24 21:32 Dose: 1 drops Documented By: Admin: 04/25/24 17:47 Dose: 1 drops Documented By: Admin: 04/25/24 13:17 Dose: 1 drops Documented By: Admin: 04/25/24 08:22 Dose: 1 drops Documented By: Admin: 04/24/24 21:07 Dose: 1 drops Documented By: Admin: 04/24/24 16:49 Dose: 2 drops Documented By: TOM Ascorbic Acid (Ascorbic Acid 500 Mg Tab) 1,000 mg PO BID [facility] Stop: 05/24/24 20:59 Last Admin: 04/25/24 21:32 Dose: 1,000 mg Documented By: Admin: 04/25/24 08:27 Dose: 1,000 mg Documented By: Admin: 04/24/24 21:08 Dose: 1,000 mg Documented By: MARGOTH Atenolol (Atenolol 50 Mg Tablet) 50 mg PO QAM [facility] Stop: 05/25/24 08:59 Last Admin: 04/25/24 08:28 Dose: 50 mg Documented By: NORRIS Buspirone HCl (Buspirone 5 Mg Tab) 10 mg PO TID [facility] Stop: 05/24/24 20:59 Last Admin: 04/25/24 21:31 Dose: 10 mg Documented By: Admin: 04/25/24 13:18 Dose: 10 mg Documented By: Admin: 04/25/24 08:26 Dose: 10 mg Documented By: Admin: 04/24/24 21:08 Dose: 10 mg Documented By: MARGOTH Calcium/Vitamin D (Calcium 600mg + Vit D 400 Iu Tab) 1 tab PO BID [facility] Stop: 05/24/24 20:59 Last Admin: 04/25/24 21:31 Dose: 1 tab Documented By: Admin: 04/25/24 08:27 Dose: 1 tab Documented By: Admin: 04/24/24 21:08 Dose: 1 tab Documented By: MARGOTH Cetirizine HCl (Cetirizine Hcl 10 Mg Tablet) 10 mg PO QAM [facility] Stop: 05/25/24 08:59 Last Admin: 04/25/24 08:27 Dose: 10 mg Documented By: NORRIS Cyanocobalamin (Cyanocobalamin (B-12) 100 Mcg Tablet) 100 mcg PO QAM [facility] Stop: 05/25/24 08:59 Last Admin: 04/25/24 08:26 Dose: 100 mcg Documented By: NORRIS Famotidine (Famotidine 40 Mg Tablet) 40 mg PO QAM [facility] Stop: 05/25/24 08:59 Last Admin: 04/25/24 08:28 Dose: 40 mg Documented By: NORRIS Fluticasone Propionate (Fluticasone Propionate Na Spr 16 Gm Btl) 2 sprays NA BID [facility] Stop: 05/24/24 15:29 Last Admin: 04/25/24 21:32 Dose: 2 sprays Documented By: Admin: 04/25/24 08:24 Dose: 2 sprays Documented By: Admin: 04/24/24 21:08 Dose: 2 sprays Documented By: Admin: 04/24/24 16:45 Dose: 2 sprays Documented By: TOM Gabapentin (Gabapentin 300 Mg Cap) 300 mg PO TID [facility] Stop: 05/24/24 20:59 Last Admin: 04/25/24 21:31 Dose: 300 mg Documented By: Admin: 04/25/24 13:18 Dose: 300 mg Documented By: Admin: 04/25/24 08:28 Dose: 300 mg Documented By: Admin: 04/24/24 21:08 Dose: 300 mg Documented By: MARGOTH Heparin Sodium (Porcine) (Heparin Sod 5,000 Unit/0.5 Ml Vial) 5,000 units SQ Q12 [facility] Stop: 05/24/24 20:59 Last Admin: 04/25/24 21:29 Dose: 5,000 units Documented By: Admin: 04/25/24 08:25 Dose: 5,000 units Documented By: Admin: 04/24/24 21:08 Dose: 5,000 units Documented By: MARGOTH Cefepime HCl (Maxipime 2000mg) 2,000 mg in 20 mls @ 5 mls/min IV Q12H [facility]; Protocol Stop: 04/30/24 01:59 Last Admin: 04/25/24 13:18 Dose: 5 mls/min Documented By: Admin: 04/25/24 02:04 Dose: 5 mls/min Documented By: MARGOTH Ipratropium [place]a (Ipratropium [place] Nasal [place] 0.06% 15ml) 1 sprays ALLI QID [facility] Stop: 05/24/24 16:59 Last Admin: 04/25/24 21:32 Dose: 1 sprays Documented By: Admin: 04/25/24 17:46 Dose: 1 sprays Documented By: Admin: 04/25/24 13:17 Dose: 1 sprays Documented By: Admin: 04/25/24 08:24 Dose: 1 sprays Documented By: Admin: 04/24/24 21:09 Dose: 1 sprays Documented By: Admin: 04/24/24 16:48 Dose: 1 sprays Documented By: TOM Lactobacillus Acidophilus (Advanced Probiotic 625 Mg Capsule) 1,250 mg PO DAILY [facility] Stop: 05/25/24 08:59 Last Admin: 04/25/24 08:23 Dose: 1,250 mg Documented By: NORRIS Lamotrigine (Lamotrigine 100 Mg Tab) 150 mg PO AMHS [facility] Stop: 05/24/24 20:59 Last Admin: 04/25/24 21:30 Dose: 150 mg Documented By: Admin: 04/25/24 08:24 Dose: 150 mg Documented By: Admin: 04/24/24 21:09 Dose: 150 mg Documented By: MARGOTH Levothyroxine Sodium (Levothyroxine Sodium 125 Mcg Tablet) 125 mcg PO DAILYBB [facility] Stop: 05/25/24 06:29 Last Admin: 04/25/24 06:28 Dose: 125 mcg Documented By: MARGOTH [place] Carbonate ([place] Carbonate 300 Mg Tab) 300 mg PO HS [facility] Stop: 05/24/24 20:59 Last Admin: 04/25/24 21:34 Dose: 300 mg Documented By: Admin: 04/24/24 21:10 Dose: 300 mg Documented By: MARGOTH Losartan Potassium (Losartan Potassium 50 Mg Tab) 100 mg PO QAM [facility] Stop: 05/25/24 08:59 Last Admin: 04/25/24 08:23 Dose: 100 mg Documented By: NORRIS Multivitamins (Multivitamin Tab) 1 tab PO QPM [facility] Stop: 05/24/24 20:59 Last Admin: 04/25/24 21:35 Dose: 1 tab Documented By: Admin: 04/24/24 21:10 Dose: 1 tab Documented By: MARGOTH Pravastatin Sodium (Pravastatin Sod 40 Mg Tab) 80 mg PO HS [facility] Stop: 05/24/24 20:59 Last Admin: 04/25/24 21:34 Dose: 80 mg Documented By: Admin: 04/24/24 21:10 Dose: 80 mg Documented By: MARGOTH Tamsulosin HCl (Tamsulosin Hcl 0.4 Mg Cap) 0.4 mg PO QPM [facility] Stop: 05/24/24 20:59 Last Admin: 04/25/24 21:31 Dose: 0.4 mg Documented By: Admin: 04/24/24 21:09 Dose: 0.4 mg Documented By: MARGOTH Trazodone HCl (Trazodone Hcl 100 Mg Tab) 200 mg PO [facility] Stop: 05/24/24 20:59 Last Admin: 04/25/24 21:33 Dose: 200 mg Documented By: Admin: 04/24/24 21:10 Dose: 200 mg Documented By: MARGOTH Discontinued Medications Cefepime HCl (Maxipime 2000mg) 2,000 mg in 20 mls @ 5 mls/min IV NOW STA; Protocol Stop: 04/24/24 13:08 Last Admin: 04/24/24 13:52 Dose: 5 mls/min Documented By: ISAÍAS Sodium Chloride (Nss) 1,000 mls @ 125 mls/hr IV .Q8H [facility] Stop: 04/25/24 06:29 Last Infusion: 04/25/24 06:26 Dose: Infused Documented By: Admin: 04/24/24 22:30 Dose: 125 mls/hr Documented By: Infusion: 04/24/24 22:30 Dose: Infused Documented By: Admin: 04/24/24 14:34 Dose: 125 mls/hr Documented By: TOM Lactobacillus Acidophilus (Advanced Probiotic 625 Mg Capsule) 1,250 mg PO NOW STA Stop: 04/24/24 13:53 Last Admin: 04/24/24 14:13 Dose: 1,250 mg Documented By: ISAÍAS Discharge Plan Visit Data Chief Complaint: Urinary Symptoms Stated Complaint: ANTIBIOTIC NOT WORKING, UTI ED Provider: Viral Liz Discharge Problem: Acute UTI, Recurrent UTI (urinary tract infection) Patient Disposition: Admitted As Inpatient Discharge Instructions Interventions: ED Discharge Assessment Last Done: 04/24/24 14:10
[2024-04-24] MEDS ORDERED: ONDANSETRON INJ 2 MG/ML 2 ML VIAL IV PRN (14:33)
[2024-04-24] MEDS ORDERED: MAGNESIUM HYDROXIDE SUSP 30 ML UDC PO PRN (14:33)
[2024-04-24] MEDS ORDERED: POLYETHYLENE (MIRALAX) 17 GM PACK PO PRN (14:33)
[2024-04-24] MEDS ORDERED: ACETAMINOPHEN 325 MG TAB PO PRN (14:33)
[2024-04-24] MEDS: SODIUM CHLORIDE 0.9% 1,000 ML IV SCH (14:34)
[2024-04-24] MEDS ORDERED: DICYCLOMINE HCL 20 MG TAB PO PRN (15:16)
[2024-04-24] MEDS: FLUTICASONE PROPIONATE NA SPR 16 GM BTL SCH (16:45)
[2024-04-24] MEDS: IPRATROPIUM BROMIDE NASAL SPRAY 0.06% 15ML NAE SCH (16:48)
[2024-04-24] MEDS: ARTIFICIAL TEARS OP SCH (16:49)
[2024-04-24] MEDS: HEPARIN SOD 5,000 UNIT/0.5 ML VIAL SQ SCH (21:08)
[2024-04-24] MEDS: ASCORBIC ACID 500 MG TAB PO SCH (21:08)
[2024-04-24] MEDS: busPIRone 5 MG TAB PO SCH (21:08)
[2024-04-24] MEDS: GABAPENTIN 300 MG CAP PO SCH (21:08)
[2024-04-24] MEDS: CALCIUM 600MG + VIT D 400 IU TAB PO SCH (21:08)
[2024-04-24] MEDS: lamoTRIgine 100 MG TAB PO SCH (21:09)
[2024-04-24] MEDS: TAMSULOSIN HCL 0.4 MG CAP PO SCH (21:09)
[2024-04-24] MEDS: LITHIUM CARBONATE 300 MG TAB PO SCH (21:10)
[2024-04-24] MEDS: traZODone HCL 100 MG TAB PO SCH (21:10)
[2024-04-24] MEDS: PRAVASTATIN SOD 40 MG TAB PO SCH (21:10)
[2024-04-24] MEDS: MULTIVITAMIN TAB PO SCH (21:10)
[2024-04-25] MEDS: CEFEPIME 2000MG 2,000 MG/20 ML SYR IV SCH (02:04)
[2024-04-25] MEDS: LEVOTHYROXINE SODIUM 125 MCG TABLET PO SCH (06:28)
--- NOTE | 2024-04-25 08:20 | Hospitalist Progress Note ---
Date of Service April 25, 2024 Assessment & Plan (1) Recurrent UTI (urinary tract infection): Plan: CT of the abdomen did not show any anatomical or any pathological abnormality in the system, based on the result of recent urine culture, patient is now being treated with cefepime, may monitor response to treatment for 1 more day, I guess by tomorrow we should be able to transition to p.o. antibiotics, options are Levaquin, ciprofloxacin, Bactrim. Patient is otherwise afebrile, no leukocytosis and hemodynamically stable. (2) Acute kidney injury superimposed on stage 3a chronic kidney disease: Plan: Current creatinine is 1.5 up from 1.32 days ago, will encourage oral hydration, monitor kidney function. (3) Hypertension, essential: Plan: Blood pressure is controlled, continue with atenolol 50 mg in the morning, amlodipine 10 mg in the morning and losartan 100 mg daily. (4) Hypothyroidism (acquired): Plan: Continue with Synthroid 125 mcg daily. (5) Bipolar disorder: Plan: Continue with trazodone, lithium, Lamictal and gabapentin and buspirone. Plan Overall my intake is that I do not see a significant impact from this urinary tract infection, she does have some cognitive impairment and today it seems that she is at baseline. I will just confirm response to antibiotic over the next 24 hours and as of 04/26/2024 I think she should be fine transitioning to p.o. antibiotics. Admission and Anticipated Discharge Date Admission Date: April 24, 2024 Subjective Patient is a 78-year-old female with history of hypertension hyperlipidemia and hypothyroidism, chronic interstitial cystitis, CKD stage IIIa, urinary retention and frequent UTIs, left breast cancer status postradiation/chemo/mastectomy, depression and mild cognitive impairment who initially was seen in the ED on 04/22/2024 with some lower abdominal pain, urinalysis on that day was compatible with UTI, patient was empirically started on cefdinir and was discharged from ED. The result of culture finalized and sent to pharmacist and pharmacist contacted patient's to inquire about patient's condition and based on discussion, patient was decided to be brought to the hospital and be admitted and managed with IV antibiotics. Patient was seen and examined, she appears slightly confused however she attributes that to be early in the morning, she does know her whereabouts, she says that she does ambulate with walker. The result of culture which was just finalized showed growth of Morganella morganii with some sensitivity with not a robust response to third-generation cephalosporins. Otherwise patient is af ebrile with no leukocytosis. Physical Exam Physical Exam: VITALS: Reviewed. GEN: Healthy appearing, well-developed, NAD, we will need to reevaluate her cognitive status. NECK: Supple, with no masses. CV: RRR, no m/r/g. LUNGS: CTAB, no w/r/c. ABD: Soft, NT/ND, NBS, no masses or organomegaly. : N/A SKIN: Warm, well perfused. No skin rashes or abnormal lesions. Results & Data Results & Data Vital Signs (Past 12 Hours) Vital Signs Temp Pulse Resp BP Pulse Ox O2 Del Method 04/25/24 07:49 36.6 C 60 18 135/79 95 Room Air 04/25/24 07:21 36.6 C 61 16 134/82 94 Room Air 04/24/24 20:14 37.1 C 65 18 158/85 H 94 Room Air Laboratory Results Laboratory Results - last 24 hr 04/24/24 12:20 WBC 5.21 RBC 4.32 Hgb 13.3 Hct 39.5 MCV 91.4 MCH 30.8 MCHC 33.7 RDW Std Deviation 45.1 RDW Coeff of [place] 13.4 Plt Count 251 MPV 9.0 L Immature Gran % (Auto) 1.0 Neut % (Auto) 68.1 Lymph % (Auto) 22.8 Rooks % (Auto) 7.7 Eos % (Auto) 0.2 Baso % (Auto) 0.2 Neut # (Auto) 3.55 Lymph # (Auto) 1.19 L Rooks # (Auto) 0.40 Eos # (Auto) 0.01 Baso # (Auto) 0.01 Immature Gran # (Auto) 0.05 Sodium 138 Potassium 4.5 Chloride 102 Carbon Dioxide 28 Anion Gap 8 BUN 16 Creatinine 1.52 H Est Cr Clr Drug Dosing 34.8 eGFR 35.33 BUN/Creatinine Ratio 10.5 Glucose 92 Calcium 9.8 Total Bilirubin 0.4 Direct Bilirubin 0.1 AST 18 ALT 14 Alkaline Phosphatase 69 Total Protein 7.7 Albumin 4.7 Medications Administered Current Inpatient Medications Acetaminophen (Acetaminophen 325 Mg Tab) 650 mg PO Q4H PRN PRN Reason: pain/fever Stop: 05/24/24 14:32 Amlodipine Besylate (Amlodipine Besylate 5 Mg Tab) 10 mg PO QAM [facility] Stop: 05/25/24 08:59 Artificial Tears (Artificial Tears) 1 drops OP QID [facility] Stop: 05/24/24 16:59 Last Admin: 04/24/24 21:07 Dose: 1 drops Ascorbic Acid (Ascorbic Acid 500 Mg Tab) 1,000 mg PO BID [facility] Stop: 05/24/24 20:59 Last Admin: 04/24/24 21:08 Dose: 1,000 mg Atenolol (Atenolol 50 Mg Tablet) 50 mg PO QAM [facility] Stop: 05/25/24 08:59 Buspirone HCl (Buspirone 5 Mg Tab) 10 mg PO TID [facility] Stop: 05/24/24 20:59 Last Admin: 04/24/24 21:08 Dose: 10 mg Calcium/Vitamin D (Calcium 600mg + Vit D 400 Iu Tab) 1 tab PO BID [facility] Stop: 05/24/24 20:59 Last Admin: 04/24/24 21:08 Dose: 1 tab Cetirizine HCl (Cetirizine Hcl 10 Mg Tablet) 10 mg PO QAM [facility] Stop: 05/25/24 08:59 Cyanocobalamin (Cyanocobalamin (B-12) 100 Mcg Tablet) [facility] [place]: 05/25/24 08:59 Dicyclomine HCl (Dicyclomine Hcl 20 Mg Tab) 20 mg PO QID PRN PRN Reason: Abdominal Cramping Stop: 05/24/24 15:15 Famotidine (Famotidine 40 Mg Tablet) [facility] [place]: 05/25/24 08:59 Fluticasone Propionate (Fluticasone Propionate Na Spr 16 Gm Btl) 2 sprays NA BID [facility] Stop: 05/24/24 15:29 Last Admin: 04/24/24 21:08 Dose: 2 sprays Gabapentin (Gabapentin 300 Mg Cap) 300 mg PO TID [facility] Stop: 05/24/24 20:59 Last Admin: 04/24/24 21:08 Dose: 300 mg Heparin Sodium (Porcine) (Heparin Sod 5,000 Unit/0.5 Ml Vial) 5,000 units SQ Q12 [facility] Stop: 05/24/24 20:59 Last Admin: 04/24/24 21:08 Dose: 5,000 units Cefepime HCl (Maxipime 2000mg) 2,000 mg in 20 mls @ 5 mls/min IV Q12H [facility]; Protocol Stop: 04/30/24 01:59 Last Admin: 04/25/24 02:04 Dose: 5 mls/min Ipratropium [place] (Ipratropium [place] Nasal [place] 0.06% 15ml) 1 sprays ALLI QID [facility] Stop: 05/24/24 16:59 Last Admin: 04/24/24 21:09 Dose: 1 sprays Lactobacillus Acidophilus (Advanced Probiotic 625 Mg Capsule) 1,250 mg PO DAILY [facility] Stop: 05/25/24 08:59 Lamotrigine (Lamotrigine 100 Mg Tab) 150 mg PO AMHS [facility] Stop: 05/24/24 20:59 Last Admin: 04/24/24 21:09 Dose: 150 mg Levothyroxine Sodium (Levothyroxine Sodium 125 Mcg Tablet) 125 mcg PO DAILYBB [facility] Stop: 05/25/24 06:29 Last Admin: 04/25/24 06:28 Dose: 125 mcg [place] Carbonate ([place] Carbonate 300 Mg Tab) 300 mg PO HS [facility] Stop: 05/24/24 20:59 Last Admin: 04/24/24 21:10 Dose: 300 mg Losartan Potassium (Losartan Potassium 50 Mg Tab) 100 mg PO QAM [facility] Stop: 05/25/24 08:59 Magnesium Hydroxide (Magnesium Hydroxide Susp 30 Ml Udc) 30 ml PO Q6H PRN PRN Reason: Constipation Stop: 05/24/24 14:32 Multivitamins (Multivitamin Tab) 1 tab PO QPM [facility] Stop: 05/24/24 20:59 Last Admin: 04/24/24 21:10 Dose: 1 tab Ondansetron HCl (Ondansetron Inj 2 Mg/Ml 2 Ml Vial) 4 mg IV Q6H PRN PRN Reason: Nausea Stop: 05/24/24 14:32 Polyethylene Glycol (Polyethylene (Miralax) 17 Gm Pack) 17 gm PO DAILY PRN PRN Reason: Constipation Stop: 05/24/24 14:32 Pravastatin Sodium (Pravastatin Sod 40 Mg Tab) 80 mg PO HS [facility] Stop: 05/24/24 20:59 Last Admin: 01/13/25 21:10 Dose: 80 mg Tamsulosin HCl (Tamsulosin Hcl 0.4 Mg Cap) 0.4 mg PO QPM [facility] Stop: 05/24/24 20:59 Last Admin: 04/24/24 21:09 Dose: 0.4 mg Trazodone HCl (Trazodone Hcl 100 Mg Tab) 200 mg PO HS [facility] Stop: 05/24/24 20:59 Last Admin: 04/24/24 21:10 Dose: 200 mg (5) Bipolar disorder Active/Remission status: in partial remission Most recent bipolar episode type: unspecified type Qualified Code(s): F31.70 - Bipolar disorder, currently in remission, most recent episode unspecified
[2024-04-25] MEDS: LOSARTAN POTASSIUM 50 MG TAB PO SCH (08:23)
[2024-04-25] MEDS: ADVANCED PROBIOTIC 625 MG CAPSULE PO SCH (08:23)
[2024-04-25] MEDS: CYANOCOBALAMIN (B-12) 100 MCG TABLET PO SCH (08:26)
[2024-04-25] MEDS: CETIRIZINE HCL 10 MG TABLET PO SCH (08:27)
[2024-04-25] MEDS: FAMOTIDINE 40 MG TABLET PO SCH (08:28)
[2024-04-25] MEDS: ATENOLOL 50 MG TABLET PO SCH (08:28)
[2024-04-25] MEDS: amLODIPine BESYLATE 5 MG TAB PO SCH (08:29)
[2024-04-25 10:50] LABS: Hematocrit (blood only) 34.8 % (37.0-47.0); Hemoglobin 11.4 g/dl (12.0-16.0); Mean Corpuscular Hemoglobin 30.3 pg (25.0-34.0); Mean Corpuscular Hgb Conc 32.8 g/dL (32.0-36.0); Mean Corpuscular Volume 92.6 fL (80.0-100.0); Mean Platelet Volume 8.9 fL (9.4-12.4); Platelet Count 216 K/uL (130-400); RDW Coefficient of Variation 13.5 % (11.5-14.5); RDW Standard Deviation 45.9 fL (36.4-46.3); Red Blood Count 3.76 M/uL (4.20-5.40); White Blood Count 3.99 K/ul (4.8-10.8)
[2024-04-25 11:09] LABS: Albumin Globulin Ratio 1.7 (0.9-2); Albumin Level 4.1 gm/dl (3.4-5.0); Bilirubin,Total 0.4 mg/dl (0.2-1.0); Calcium 8.9 mg/dl (8.6-10.3); Creatinine Clr Calc Pharmacy 41.7 ml/min; Globulin 2.4 gm/dl (2.5-4.0); Potassium 3.8 mmol/L (3.5-5.1); Total Protein 6.5 gm/dl (6.0-8.3)
--- NOTE | 2024-04-25 11:17 | Infectious Disease Consult ---
Date of Service April 25, 2024 Telehealth Information I performed this visit using a real-time telehealth connection between my location and the patients location ([facility]). After connecting through interactive tele-video, patient was identified by name and date of and/or wristband check.Patient (or authorized healthcare bank representative) was informed that this was a telemedicine visit and it was being conducted confidentially over secure lines. My office door was closed and no one else was present in the room with me.Patient (or authorized healthcare bank representative) provided consent to proceed with the visit, expressed an understanding of privacy and security of the telemedicine visit, and gave permission to have a hospital bank representative in the room in order to assist with the visit and to conduct portions of the visit, as needed. I informed the patient (or authorized healthcare bank representative) that I reviewed their record and presented the opportunity for them to ask any questions regarding the visit today. The patient agreed to participate. Assessment & Plan (1) Recurrent UTI (urinary tract infection): Plan: Patient with morganella morganii UTI recommend continuing cefepime while inpatient and on discharge if she has not received 5-7 days would recommend one dose of fosfomycin .She has urinary incontinence which likely has contributed to her recurrent UTI;s .We discussed scheduled bathroom breaks cranberry extract(which she is currently on) and adding methanamine hippurate which acts by acidifying the urine and has some mild antibacterial properties.Patient follows with Dr Griffin a urogynecologist and he recently started her on flomax .Thank you for allowing us to participate in the care of this patient ID will sign off (2) Urinary incontinence: Plan: Recommend scheduled bacthroom breaks History of Present Illness History of Present Illness 78-year-old female with PMHx significant for HTN, HLD, hypothyroidism due to acquired atrophy of thyroid, moderate mitral regurgitation, fatty liver, GERD with esophagitis, diverticulosis, IBS with constipation + diarrhea, chronic interstitial cystitis, CKD stage IIIa, urinary retention, urge incontinence, recurrent UTIs, history of recurrent C. difficile infection [last positive in 2021], cervical DDD, left breast cancer s/p radiation+chemotherapy+mastectomy, post-mastectomy lymphedema syndrome, polyneuropathy following chemotherapy, bipolar depression and mild cognitive impairment who presented to the ED on 04/24/[address] [facility] pharmacy for management of a recurrent UTI. Her urine culture is growing morganella and she is on cefepime Allergies Allergy/AdvReac Type Severity Reaction Status Date / Time ciprofloxacin Allergy Intermediate HIVES Verified 08/06/23 09:19 metronidazole Allergy Intermediate hives Verified 08/06/23 09:19 Sulfa (Sulfonamide Allergy Intermediate HIVES Verified 08/06/23 09:19 Antibiotics) baclofen AdvReac Severe NEURO Verified 08/06/23 09:19 SYMPTOMS pantoprazole AdvReac Mild migraines Verified 08/06/23 09:19 zolpidem AdvReac Mild delusions Verified 08/06/23 09:19 Home Medications Medication Instructions Recorded Confirmed Type aspirin 81 mg tablet,delayed 81 mg PO QAM #0 tabs 11/17/11 04/24/24 History release (Juanjo Low Dose Aspirin) levothyroxine 125 mcg tablet 125 mcg PO QAM ##0 02/04/13 04/24/24 History atenolol 50 mg tablet 50 mg PO QAM ##0 05/24/14 04/24/24 History [id number]-abiveyraw 3.5 1 drp otic (ear) 2XWK ##0 05/24/14 04/24/24 History mg/mL-10,000 unit/mL-1 % ear solution pravastatin 80 mg tablet 80 mg PO HS ##0 05/24/14 04/24/24 History multivitamin (Multiple Vitamins 1 tab PO QPM #0 tabs 04/22/15 04/24/24 History tablet) cranberry extract 300 mg tablet 300 mg PO BID ##0 07/07/16 04/24/24 History gabapentin 300 mg capsule 300 mg PO TID #0 caps 07/07/16 04/24/24 History omeprazole magnesium 20 mg 20 mg PO BID #0 caps 07/07/16 04/24/24 History capsule,delayed release ascorbic acid (vitamin C) 1,000 mg 1 g PO BID ##0 12/03/16 04/24/24 History tablet calcium 500 mg (as 1 tab PO BID ##0 12/03/16 04/24/24 History carbonate)-vitamin D3 5 mcg (200 unit) tablet (Calcium 500 + D) fluticasone propionate 50 2 spray intranasal AMPM ##0 12/03/16 04/24/24 History mcg/actuation nasal spray,suspension lamotrigine 150 mg tablet 150 mg PO AMHS #0 tabs 03/28/17 04/24/24 History (Lamictal) lorazepam 1 mg tablet 1 mg PO UD PRN Anxiety #0 tabs 03/28/17 04/24/24 History dicyclomine 20 mg tablet 20 mg PO QID PRN Abdominal 07/01/17 04/24/24 History Cramping ##0 ipratropium bromide 21 mcg (0.03 2 spray intranasal QID ##0 07/01/17 04/24/24 H istory %) nasal spray light mineral oil 1 %-mineral oil 2 drp ophthalmic (eye) BID 01/26/18 04/24/24 History 4.5 % eye drops (Soothe XP) meclizine 25 mg tablet 50 mg PO TID PRN Dizziness 01/26/18 04/24/24 History ondansetron HCl 8 mg tablet 8 mg PO Q8 PRN Nausea 01/26/18 04/24/24 History simethicone 80 mg chewable tablet 80 mg PO BID PRN Stomach Upset 01/26/18 04/24/24 History (Gas Relief 80 (simethicone)) famotidine 40 mg tablet 40 mg PO QAM 02/08/20 04/24/24 History trazodone 100 mg tablet 200 mg PO HS 02/08/20 04/24/24 History amlodipine 10 mg tablet 10 mg PO QAM 05/21/20 04/24/24 History pilocarpine HCl 5 mg tablet 5 mg PO TID 05/21/20 04/24/24 History ([place] (pilocarpine)) cetirizine 10 mg capsule (Zyrtec) 10 mg PO QAM 09/24/20 04/24/24 History lithium carbonate 300 mg tablet 300 mg PO HS 05/23/21 04/24/24 History promethazine 25 mg tablet 25 mg PO Q4H PRN Nausea/Vomiting 07/30/21 04/24/24 History cyanocobalamin (vitamin B-12) 100 100 mcg PO QAM 12/29/21 04/24/24 History mcg tablet (Vitamin B-12) cyclosporine 0.05 % eye drops in a 1 drp OPB BID 06/14/23 04/24/24 History dropperette (Restasis) furosemide 20 mg tablet 20 mg PO QAM 06/14/23 04/24/24 History losartan 100 mg tablet 100 mg PO QAM 06/14/23 04/24/24 History buspirone 7.5 mg tablet 10 mg PO TID 08/06/23 04/24/24 History cephalexin 250 mg tablet 250 mg PO HS UTI Prophylaxis 04/24/24 04/24/24 History loperamide 2 mg capsule 2 mg PO Q6H PRN Diarrhea 04/24/24 04/24/24 History tamsulosin 0.4 mg capsule 0.4 mg PO QPM 04/24/24 04/24/24 History Patient History Medical History CVA (cerebral vascular accident) old lacunar infarct in R cerebellar hemisphere noted on 05/2020 MRI brain Limb alert care status LUE restriction r/t lymphedema Mild cognitive impairment per [facility] records Asthma Stable Chronic kidney disease (CKD), stage III (moderate) C. difficile diarrhea chronic, on vancomycin for suppressive therapy, follows with [facility] GI History of COVID-19 diagnosed 01/2021--sinus issue, no hospitalization--no issues now Leukocytosis Hyperlipidemia TIA (transient ischemic attack) 2018, no deficits, no neurologist GERD (gastroesophageal reflux disease) Surgical History History of breast surgery History of bilateral tubal ligation History of foot surgery right History of lumbar spinal fusion x4 History of fusion of cervical spine x2--very limited with ROM History of total right knee replacement (TKR) History of esophagogastroduodenoscopy (EGD) History of vascular access device Port for chemo, later removed History of removal of Port-a-Cath History of cardiac cath 2016 > no stents H/O dilation and curettage Status post total left knee replacement H/O cystoscopy H/O colonoscopy History of lymph node dissection of left axilla 03/14/2013- Left axillary lymph node dissection History of cataract surgery R/L Family History Other No family history of adverse response to anesthesia Social History Smoking Status: Never smoker Second Hand Exposure: No; Do You Dip or Chew Tobacco: No; Hx Alcohol Use: No Hx Substance Use: No Preferred Language: Yi Communication Ability: Effective Air Box Tester Required: No Beliefs That Will Affect Care: None marital status: Current Living Situation: Spouse Current Living Situation Comment: Patient states she lives at home with (Luis Fernando) How many Children do You have: 0 Other Information That Helps Us Care for You: No Feels Safe at Home: Yes Safety Concerns: Feels Safe At This Time Assistive Devices: Walker Review of Systems No respiratory distress Physical Exam Awake alert and oriented Results & Data Vital Signs (Past 12 Hours) Vital Signs Temp Pulse Resp BP Pulse Ox O2 Del Method 04/25/24 07:49 36.6 C 60 18 135/79 95 Room Air 04/25/24 07:21 36.6 C 61 16 134/82 94 Room Air Laboratory Results M morganii RX M.I.C. --- --------- Amikacin S <=16 Amp/Sul R >16/8 Cefepime S <=2 Cefotaxime I 16 Cefoxitin S <=8 Ceftriaxone R 8 Ciprofloxacin S <=0.25 Ertapenem S <=0.5 Gentamicin S <=2 Levofloxacin S <=0.5 Meropenem S <=1 Tobramycin S <=2 Trimeth/Sulfa S <=0.5/9.5 Pip/Tazo S <=8 S = SENSITIVE I = INTERMEDIATE R = RESISTANT Diagnostic Findings FINDINGS: Lower chest: No acute abnormality. Liver: Hepatic steatosis is noted. Gallbladder and biliary tree: Patient is status post cholecystectomy. Physio logic prominence of the biliary ducts is noted. Pancreas: Unremarkable, no focal lesions. Spleen: A few hypodensities are too small to characterize. Adrenals: Hypodensities Kidneys and ureters: Unremarkable. Bladder: Unremarkable. Reproductive organs: Unremarkable. Bowel: Diverticulosis is seen without diverticulitis. The appendix is normal. Lymph nodes Retroperitoneal: Unremarkable. Pelvic: Unremarkable. Mesenteric: Unremarkable. Peritoneum: Normal. Vessels: Atherosclerotic calcifications are seen. Abdominal wall: Unremarkable. Bones: Degenerative changes in the visualized spine. Posterior fixation hardware is seen. IMPRESSION: 1. No acute abnormalities and in particular no evidence of diverticulitis despite the presence of numerous diverticula. 2. Hepatic steatosis.
[2024-04-25 11:24] LABS: Thyroid Stimulating Hormone 2.376 uIu/ml (0.300-4.500)
[2024-04-26 07:42] VITALS: RESP 16
[2024-04-26 07:46] LABS: BUN Creatinine Ratio 11.2 (10-20); Calcium 9.3 mg/dl (8.6-10.3); Creatinine Clr Calc Pharmacy 39.5 ml/min
[2024-04-26 07:47] VITALS: BP 189/96; PULSE 57; TEMP 98.4; O2SAT 96
--- NOTE | 2024-04-26 17:44 | Discharge Summary ---
Discharge Summary Date of Service April 26, 2024 Principal Dx & Hospital Course #1 = Principal Diagnosis (1) Recurrent UTI (urinary tract infection): -ID consult, appreciate recs, recommend fosfomycin at discharge -also recommended methanamine hippurate (2) Acute kidney injury superimposed on stage 3a chronic kidney disease: -appears close to baseline, improved from yesterday (3) Hypertension, essential: -Blood pressure is controlled, continue with atenolol 50 mg in the morning, amlodipine 10 mg in the morning and losartan 100 mg daily. -last 2 BP meds were in error and inconsistent with prior readings (4) Hypothyroidism (acquired): -Continue with Synthroid 125 mcg daily. (5) Bipolar disorder: -Continue with trazodone, lithium, Lamictal and gabapentin and buspirone. Notes For Next Care Provider 78-year-old female who has frequent UTIs who presents for UTI. UTI has your unique resistance. Pattern and had growth of Morganella. ID was consulted and recommended continuing cefepime and switching to fosfomycin on discharge. Had discussion with patient and before discharge regarding this and other medication recommendations. Will need follow-up with infectious disease if possible and urology. Medication Changes From Visit -fosfomycin, methanamine hippurate Admission HPI Per Admitting Provider Mary Dyer is a 78-year-old female with PMHx significant for HTN, HLD, hypothyroidism due to acquired atrophy of thyroid, moderate mitral regurgitation, fatty liver, GERD with esophagitis, diverticulosis, IBS with constipation + diarrhea, chronic interstitial cystitis, CKD stage IIIa, urinary retention, urge incontinence, recurrent UTIs, history of recurrent C. difficile infection [last positive in 2021], cervical DDD, left breast cancer s/p radiati on+chemotherapy+mastectomy, post-mastectomy lymphedema syndrome, polyneuropathy following chemotherapy, bipolar depression and mild cognitive impairment who presented to the ED on 04/24/2024 via referral from [facility] pharmacy for management of an acute UTI. History obtained from the patient, patient's at bedside and associated chart review. Patient was previously seen in the [facility] ED on 04/22/2024 for evaluation of lower abdominal pain. Laboratory evaluation at that time was grossly unremarkable however her urinalysis came back positive for evidence of infection. CTAP was also performed at that time which was unremarkable as well. She was started on a course of cefdinir at that time however urine culture results came back positive for Morganella morganii - cefdinir does not cover this organism, therefore she was referred to the ED for admission in order to receive IV antibiotics. Of note, patient had a total of 8 UTIs last year per her . Patient still endorsing some lower abdominal pain and discomfort, which has been ongoing since last Wednesday (04/17). She was experiencing some diarrhea earlier last week however this has since subsided; patient with chronic diarrhea issues at baseline - she follows with [facility] as an outpatient. She has a history of recurrent C. difficile infection however her most recent occurrence was back in 2021. No reported fevers at home over the past week. She has been experiencing some chills but denies any body aches. Patient reports she is "always cold." She was experiencing a cough and minor sinus congestion earlier last week however this has since subsided as well. She does endorse feeling progressively weaker since this all began. She has been experiencing some lightheadedness/dizziness which started over this past weekend however she denies any falls or syncope at home. Her reports that her appetite has been significantly decreased and that her oral hydration status has been poor since this all started last week - patient attributes this to her lower abdominal pain. She denies any nausea or vomiting. She is endorsing a headache which has been ongoing for the past 2-3 days. She has been compliant with the course of oral cefdinir at home with no significant change in her overall clinical status per her . Patient reports that she took all of her medications this morning. Patient has been on prophylactic antibiotic therapy with Keflex for her recurrent UTIs, which was prescribed by her primary urologist - Dr. Cristian Griffin at [facility]. She reports taking her most recent dose prior to starting cefdinir as mentioned above. Patient has been dealing with urinary incontinence at least since last year; she has tried Myrbetriq, Vesicare in the past without much improvement. Patient had Botox bladder injections back in March without transient improvement. She was noted to have a postvoid residu al of 280cc at her most recent urology appointment back on 04/17/2024. Patient has significant difficulties with urinary leakage. Patient was started on Flomax at her last urology appointment - she has not noticed much change yet in her urinary leakage difficulties. Admission Exam Per Admitting Provider General: WD/WN, vitals as above, NAD, sitting up in bed, pleasant, conversing appropriately. A+Ox3, euthymic affect. HEENT: Normocephalic, atraumatic. Conjunctivae normal. External ear and nose normal, oropharynx appears dry. Respiratory: Normal respiratory effort, lungs clear to auscultation, no wheeze/rales/rhonchi. No accessory muscle use. Cardiovascular: Regular rate, rhythm, normal peripheral pulses, no BLE edema. Vessels: No JVD. Abdomen/GI: Normal bowel sounds, soft, mildly distended, nontender to palpation in all quadrants. Extremities/Musculoskeletal: No cyanosis or clubbing, extremities motor strength intact, moves all extremities. Neurologic: No overt focal deficits, CN's II-XI not formally tested but appear grossly intact bilaterally. Discharge Exam Gen: A&O 3 NAD HEENT: NCAT, EOMI, not icteric. External ears normal. No rhinorrhea. Moist mucous membranes. Neck: Supple, full range of motion, no observable masses, No meningeal sign. Lungs: No Respiratory distress. CV: RRR, no edema. Abdomen: Soft, nondistended, No rebound tenderness. MSK: No joint swelling, no redness. Skin: No rashes, petechiae, lesions. Normal color per patient. Neuro: Normal Gait, Grossly intact. Psych: Appropriate for situation. Updated Medication List Medication Instructions Recorded Confirmed Type aspirin 81 mg tablet,delayed 81 mg PO QAM #0 tabs 11/17/11 04/24/24 History release (Juanjo Low Dose Aspirin) levothyroxine 125 mcg tablet 125 mcg PO QAM ##0 02/04/13 04/24/24 History atenolol 50 mg tablet 50 mg PO QAM ##0 05/24/14 04/24/24 History msoazekv-matnxnhic-izlsqueev 3.5 1 drp otic (ear) 2XWK ##0 05/24/14 04/24/24 History mg/mL-10,000 unit/mL-1 % ear solution pravastatin 80 mg tablet 80 mg PO HS ##0 05/24/14 04/24/24 History multivitamin (Multiple Vitamins 1 tab PO QPM #0 tabs 04/22/15 04/24/24 History tablet) cranberry extract 300 mg tablet 300 mg PO BID ##0 07/07/16 04/24/24 History gabapentin 300 mg capsule 300 mg PO TID #0 caps 07/07/16 04/24/24 History omeprazole magnesium 20 mg 20 mg PO BID #0 caps 07/07/16 04/24/24 History capsule,delayed release ascorbic acid (vitamin C) 1,000 mg 1 g PO BID ##0 12/03/16 04/24/24 History tablet calcium 500 mg (as 1 tab PO BID ##0 12/03/16 04/24/24 History carbonate)-vitamin D3 5 mcg (200 unit) tablet (Calcium 500 + D) fluticasone propionate 50 2 spray intranasal AMPM ##0 12/03/16 04/24/24 History mcg/actuation nasal spray,suspension lamotrigine 150 mg tablet 150 mg PO AMHS #0 tabs 03/28/17 04/24/24 History (Lamictal) lorazepam 1 mg tablet 1 mg PO UD PRN Anxiety #0 tabs 03/28/17 04/24/24 History dicyclomine 20 mg tablet 20 mg PO QID PRN Abdominal 07/01/17 04/24/24 History Cramping ##0 ipratropium bromide 21 mcg (0.03 2 spray intranasal QID ##0 07/01/17 04/24/24 History %) nasal spray light mineral oil 1 %-mineral oil 2 drp ophthalmic (eye) BID 01/26/18 04/24/24 History 4.5 % eye drops (Soothe XP) meclizine 25 mg tablet 50 mg PO TID PRN Dizziness 01/26/18 04/24/24 History ondansetron HCl 8 mg tablet 8 mg PO Q8 PRN Nausea 01/26/18 04/24/24 History simethicone 80 mg chewable tablet 80 mg PO BID PRN Stomach Upset 01/26/18 04/24/24 History (Gas Relief 80 (simethicone)) famotidine 40 mg tablet 40 mg PO QAM 02/08/20 04/24/24 History trazodone 100 mg tablet 200 mg PO HS 02/08/20 04/24/24 History amlodipine 10 mg tablet 10 mg PO QAM 05/21/20 04/24/24 History pilocarpine HCl 5 mg tablet 5 mg PO TID 05/21/20 04/24/24 History (Salagen (pilocarpine)) cetirizine 10 mg capsule (Zyrtec) 10 mg PO QAM 09/24/20 04/24/24 History lithium carbonate 300 mg tablet 300 mg PO HS 05/23/21 04/24/24 History promethazine 25 mg tablet 25 mg PO Q4H PRN Nausea/Vomiting 07/30/21 04/24/24 History cyanocobalamin (vitamin B-12) 100 100 mcg PO QAM 12/29/21 04/24/24 History mcg tablet (Vitamin B-12) cyclosporine 0.05 % eye drops in a 1 drp OPB BID 06/14/23 04/24/24 History dropperette (Restasis) furosemide 20 mg tablet 20 mg PO QAM 06/14/23 04/24/24 History losartan 100 mg tablet 100 mg PO QAM 06/14/23 04/24/24 History buspirone 7.5 mg tablet 10 mg PO TID 08/06/23 04/24/24 History cephalexin 250 mg tablet 250 mg PO HS UTI Prophylaxis 04/24/24 04/24/24 History loperamide 2 mg capsule 2 mg PO Q6H PRN Diarrhea 04/24/24 04/24/24 History tamsulosin 0.4 mg capsule 0.4 mg PO QPM 04/24/24 04/24/24 History fosfomycin tromethamine 3 gram 3 g PO ONCE 1 day #1 ea 04/26/24 Rx oral packet methenamine hippurate 1 gram tablet 1 g PO BID #60 tabs 04/26/24 Rx Hospital Stay Data Consultations 04/24/24 13:33 ED Decision to Admit Stat 04/24/24 14:22 Consult Infectious Diseases Routine Pending Results Patient Have Any Pending Studies at Discharge: No Discharge Instructions Given to Patient (Per Discharging Provider) 1. Please take fosfomycin as prescribed. 2. Please follow up with urology, PCP. ID if possible Total Time Total Time Spent Total Time Spent (In Minutes): I spent a total of 35 minutes coordinating, documenting, and providing care for this patient excluding time spent in the performance of separately billed services.
== END 2024-04-26 14:30 | disposition home or self-care (01) | DRG 690 ==
LOC: ED 11:26 → SUATTDRO 13:30 → 3W 13:30